=== PATIENT | male | born 1970 | race Caucasian/White ===

== ENCOUNTER 2019-07-30 20:10 | Inpatient (IN) | payer MEDICARE, MEDICAID, SELFPAY ==
[2019-07-30 20:22] VITALS: BP 138/79; PULSE 106; RESP 18; TEMP 36.9; O2SAT 98; BMI 33.5
--- NOTE | 2019-07-30 20:40 | PC.NURSE ---
Patient states he is wanting to hurt himself, patient states that if he walks out the door right now it is OVER. Patient states that while he is talking to the nurse he just wants to jump through the window . Patient seems agitated and restless in the ED.
[2019-07-30 20:50] LABS: Basophils # 0.1 10^3/uL (0.0-0.1); Basophils % 0.5 %; Eosinophils # 0.3 10^3/uL (0.0-0.8); Eosinophils % 2.1 %; Hematocrit 46.3 % (42.0-52.0); Hemoglobin 15.8 g/dL (11.7-16.6); Lymphocytes # 2.6 10^3/uL (0.8-4.8); Lymphocytes % 18.3 %; Mean Corpuscular HGB Conc 34.1 g/dL (30.0-36.0); Mean Corpuscular Hemoglobin 33.2 pg (28.0-34.0); Mean Corpuscular Volume 97.3 fL (80-94); Mean Platelet Volume 10.6 fL (7.4-10.4); Monocytes # 1.3 10^3/uL (0.2-0.9); Monocytes % 8.8 %; Neutrophils % 69.8 %; Nucleated Red Blood Cells % 0 %; Platelet Count 211 10^3/cmm (130-400); Red Blood Count 4.76 10^6/uL (4.1-5.3); White Blood Count 14.4 10^3/uL (4.0-10.0)
--- NOTE | 2019-07-30 20:56 | ED_ITS ---
HPI - Psych General: Chief Complaint: Psychiatric Symptoms Stated Complaint: SI Time Seen by Provider: 07/30/19 20:20 History of Present Illness: HPI Narrative: Patient is a 49-year-old male who presents today with suicidal ideation. He says that for the past 2 weeks he has been planning to hang himself. He also came in with a backpack with knives in it. He told security that he had this backpack and had left it outside. He says that people of told him in the past that he is just playing when he says he suicidal but he tells me quite emphatically that if he gets out of here he will fucking do it . He admits to alcohol use. He denies drug use. He denies thoughts of harming other people. complaint: suicidal ideation Onset (ago): week(s) (2) Duration: constant History of same: Yes Relieving factors: none Exacerbating factors: alcohol Context: recent alcohol abuse and not taking psychiatric medications Associated psychiatric symptoms: suicidal ideation If self harm: admits thoughts of self harm and has plan Details of plan: To hang himself Review of Systems General: Reports: ROS unobtainable due to mental status PFSH ED PFSH: Social History Smoking and tobacco status: current some day smoker Physical Exam Const: COMMON NORMALS: alert and well nourished HENMT: HEAD & SCALP: normal to inspection FACE & SINUS: normal facial exam Eye: GENERAL EYE: appearance normal, both eyes and all related structures Neck/C-Spine: COMMON NORMALS: supple, no meningeal signs and no JVD Chest: COMMONS NORMALS: normal inspection of the chest Resp: COMMON NORMALS: normal respiratory effort, No use of accessory muscles and clear to auscultation bilaterally AUSCULTATION: clear to auscultation bilaterally Cardio: COMMON NORMALS: no JVD, regular rate, regular rhythm and No murmurs present (Cardio) RATE: regular rate RHYTHM: regular rhythm GI: COMMON NORMALS: Normal to inspection, nondistended, normoactive bowel sounds present, Soft to palpation and non-tender INSPECTION: Yes normal to inspection AUSCULTATION: Yes normoactive bowel sounds PALPATION: Yes Soft to palpation Back/Pelvis: COMMON NORMALS: thoracic and lumbar spine normal to inspection Extremity: COMMON NORMALS: normal to inspection Neuro: COMMON NORMALS: moves all extremities, no focal motor deficits and no sensory deficits noted SENSORIUM/ORIENTATION: Yes alert MENINGEAL SIGNS: Yes no meningeal signs Psych: COMMON NORMALS: cooperative APPEARANCE: Yes disheveled ATTITUDE: Yes agitated ACTIVITY/MOTOR BEHAVIOR: Yes psychomotor agitation and Yes restless SPEECH: Yes excessive and Yes Pressured speech present MOOD & AFFECT: Yes irritable THOUGHT CONTENT: Yes Suicidality present Skin: COMMON NORMALS: no rashes or lesions noted and turgor normal GENERAL SKIN EXAM: no rashes or lesions noted and turgor normal MDM - Psych Lab Data: Labs: Lab Results 07/30/19 07/30/19 07/30/19 Range/Units 20:32 20:32 20:50 WBC 14.4 H (4.0-10.0) 10^3/ uL RBC 4.76 (4.1-5.3) 10^6/u L Hgb 15.8 (11.7-16.6) g/dL Hct 46.3 (42.0-52.0) % MCV 97.3 H (80-94) fL MCH 33.2 (28.0-34.0) pg MCHC 34.1 (30.0-36.0) g/dL RDW 13.0 (12.1-15.1) % Plt Count 211 (130-400) 10^3/c mm MPV 10.6 H (7.4-10.4) fL Neut % (Auto) 69.8 % Lymph % (Auto) 18.3 % [place] % (Auto) 8.8 % Eos % (Auto) 2.1 % Baso % (Auto) 0.5 % Neut # (Auto) 10.0 H (1.8-7.7) 10^3/u L Lymph # (Auto) 2.6 (0.8-4.8) 10^3/u L [place] # (Auto) 1.3 H (0.2-0.9) 10^3/u L Eos # (Auto) 0.3 (0.0-0.8) 10^3/u L Baso # (Auto) 0.1 (0.0-0.1) 10^3/u L Nucleated RBC % (a uto) 0 % Nucleated RBCs # 0.0 /100WBC Sodium 142 (136-145) mmol/L Potassium 4.0 (3.5-5.1) mmol/L Chloride 100 (98-107) mmol/L Carbon Dioxide 29 (22-29) mmol/L Anion Gap 17.0 (5-19) BUN 13 (6-20) mg/dL Creatinine 0.9 (0.7-1.2) mg/dL GFR Calculation 89.3 L (90-130) mL/min Glucose 102 (65-115) mg/dL Calculated Osmolal ity 290 (285-295) mOsm/k g Calcium 9.3 (8.5-10.5) mg/dL Total Bilirubin 1.0 (0.15-1.2) mg/dL AST 20 (0-40) U/L ALT 15 (0-41) U/L Alkaline Phosphata se 92 (40-130) IU/L Total Protein 7.2 (6.6-8.7) g/dL Albumin 4.9 (3.5-5.2) g/dL Globulin 2.3 (1.3-4.6) g/dL Salicylates < 0.3 L (3-10) mg/dL Urine Opiates Scre en Negative (Negative) ng/mL Acetaminophen < 5.0 L (10-30) ug/mL Ur Barbiturates Sc reen Negative (Negative) ng/mL Ur Phencyclidine S crn Negative (Negative) ng/mL Ur Amphetamines Sc reen Negative (Negative) ng/mL U Benzodiazepines Scrn Negative (Negative) ng/mL Urine Cocaine Scre en Negative (Negative) ng/mL U Marijuana (THC) Screen Negative (Negative) ng/mL Ethyl Alcohol < 10 (0-10) mg/dL Discharge Plan Discharge Prescriptions: No Action Unable to Assess RF: 0 Coding Level of Care Code ED Patient Registration Representative for Chg 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
[2019-07-30] MEDS: LORazepam 2 mg Tablet PO (21:09)
[2019-07-30 21:12] LABS: Alanine Aminotransferase 15 U/L (0-41); Albumin Level 4.9 g/dL (3.5-5.2); Alkaline Phosphatase 92 IU/L (40-130); Aspartate Amino Transferase 20 U/L (0-40); Blood Urea Nitrogen 13 mg/dL (6-20); Calcium 9.3 mg/dL (8.5-10.5); Carbon Dioxide 29 mmol/L (22-29); Chloride 100 mmol/L (98-107); Globulin 2.3 g/dL (1.3-4.6); Glomerular Filtration Rate 89.3 mL/min (90-130); Glucose 102 mg/dL (65-115); Osmolality Calculated 290 mOsm/kg (285-295); Sodium 142 mmol/L (136-145); Total Protein 7.2 g/dL (6.6-8.7)
[2019-07-30 21:15] VITALS: BP 124/82; PULSE 93; RESP 16; O2SAT 97
[2019-07-30 21:24] LABS: Acetaminophen < 5.0 ug/mL (10-30); Alcohol Level < 10 mg/dL (0-10); Salicylate < 0.3 mg/dL (3-10)
[2019-07-30 21:51] LABS: Amphetamines Screen Urine Negative (Negative); Barbiturates Screen Urine Negative (Negative); Benzodiazepines Screen Urine Negative (Negative); Cocaine Screen Urine Negative (Negative); Opiate Screen Urine Negative (Negative); PCP Screen Urine Negative (Negative); THC Screen Urine Negative (Negative)
[2019-07-30] MEDS: lidocaine 2% viscous 15 ML, aluminum-mag hydrox-simethicon 30 ML, sucralfate oral liq 1 GM PO (23:48)
[2019-07-30 23:53] VITALS: PULSE 85; RESP 16; O2SAT 96
[2019-07-31 00:06] VITALS: BP 112/67; PULSE 84; RESP 16; TEMP 36.5; O2SAT 97
[2019-07-31 00:31] VITALS: BP 107/72; PULSE 92; RESP 18; TEMP 36.7; O2SAT 99
[2019-07-31] MEDS: trazodone 50 mg Tablet PO (00:37)
[2019-07-31 06:00] VITALS: BP 110/55; PULSE 66; RESP 17; TEMP 36.6; O2SAT 96
--- NOTE | 2019-07-31 11:14 | P.HP_ITS ---
Providers/Chief Complaint Admitting Physician: Sam Bond MD Chief Complaint: SI HPI NPU History of Present Illness Emil Castro is a 49 year old male who presents today reporting that he is struggling but seemed open to be discharged tomorrow if the issue was pushed. We had a discussion about our last encounter which is included below. We discussed concerns about his authenticity and truthfulness and reporting. He continues to report that he had been in [place], had not been in the hospital since this previous encounter, had not been on his medication since the previous encounter, and he has not been using methamphetamine. We agreed that it is our desire to assist him in anything that would be called progress in his recovery. We set a goal for discharge on Friday allowing the treatment team to be fully assembled to assist in possible community resources. We discussed the risks be nefits and alternatives of restarting his medications at the previous dosing just prior to that last hospitalization, and he understood and agreed to proceed as is documented in this note. Psychiatric history: It is likely that between hospitalizations and rehab stays that Emil has at least 50-75 encounters and that might be low balling it. He has been on multiple medications but his adherence is highly questionable. Substance abuse history: He smokes cigarettes, drinks alcohol regularly and has smoked weed off and on. He has had significant difficulties with methamphetamine and at different times accordingly on a struggle with basically everything. He has had significant rehab stents sometimes going to rehabs to 3 times in a year. Currently his UDS was negative for all drugs of abuse. He denies any substantive changes in his psychosocial history with some elements of that reported below in the most recent evaluation. Per his last [facility] eval: History of Present Illness Date of Service: Feb 19, 2019 Reason for Consultation: Presentation to the emergency room after discharge seeking readmission Consulting Service and Doctor: Sam Bond M.D. Psychiatry. HPI: Emil presents to the emergency room requesting to be admitted to the hospital where he was just discharged. He has had 11 inpatient hospitalizations at [facility] this calendar year, 20+ emergency room visits at [facility] this calendar year, 6 inpatient rehabilitation treatments this calendar year, myriad of other hos pitalizations at other facilities, so she'll stays, and multiple investments in transportation to get him all over the state just this year alone. Many of his stays at these facilities are 1 right behind another. This behavior was seen by him in [facility] as well as here. Times where he is in the hospital for 7-10 days, followed by inpatient rehabilitation for 21-30 days followed by an emergency room visit a day or 2 later back to hospitalization. There is limited indication of any effectiveness of any of this treatment at this point. There've been a few episodes of psychosis secondary to the methamphetamine. But in general it simply him reporting that he is suicidal, that he is depressed and that he wants to stop using. He presents to the hospitalizations positive for methamphetamine generally has a few days of withdrawal, become more active and requesting to be sent to some facility and not be discharged prior to that point. We have discussed at length our belief that the only chance he has to make a change is to be in a long-term program or unfortunately be locked up by the police for an extended period of time to try to get him enough sobriety to maybe have a clear enough mind to make some changes. Unfortunately the diagnosis of malingering in conjunction with his antisocial personality disorder make for a tough combination and make evaluation difficult given that he is really says when he has come to understand we'll work to get him admitted. Allergies: Coded Allergies: AMOXICILLIN (Verified Allergy, Unknown, UNABLE TO BREATH AND THROAT SWELLS, 04/18/18) PENICILLINS (Verified Allergy, Unknown, 04/18/18) Home Meds: Home Medications: Active Seroquel Tab (Quetiapine Fumarate) 100 Mg Tablet 300 Mg PO BEDTIME 30 Days Seroquel Tab (Quetiapine Fumarate) 50 Mg Tablet 50 Mg PO BID 30 Days Prozac Cap (Fluoxetine HCl) 20 Mg Tablet 20 Mg PO DAILY 30 Days Past Medical History Other Family Medical History: Unchanged from the recent hospitalization. Other Past Social History: Unchanged from the recent hospitalization. Physical Exam Physical Exam: This is a obese white male with adequate rest, grooming and eye contact. No abnormal movements except for psychomotor retardation. Semicooperative with exam. In mild distress. Speech was decreased rate and volume with a little slurring of his voice. Mood described as depressed, affect lethargic. Thought process organized. Thought content: Patient endorsed suicidal ideation but denied homicidal ideation, there were no delusions reported are noted, he denied any auditory or visual hallucinations. Attention and concentration were intact and memory was unreliable but none were formally tested. He is alert and oriented ?3. Insight and judgment are impaired. Assessment/Problem List Assessment/Problem List Other Assessment/Problem List: Malingering, antisocial personality disorder methamphetamine use disorder severe, rule out methamphetamine-induced mood disorder, depressive disorder unspecified, insomnia Plan This is a 48-year-old white male well known to this automobile and property underwriter from hospitalization in [facility] as well as here at [facility] who presents as hours after he was discharged by this automobile and property underwriter from the neuropsych unit after being on a 96 hour hold. He is concluding this year having had double digit admissions, reportedly almost twice as many ER visits, at least 6 inpatient rehabs and multiple stays at other psychiatric facilities. He has significant addiction issues which has led to significant psychosocial dysfunction, homelessness, and episodes of mood dysregulation and psychosis. He presents as he has many times with clear desire to have somewhere to go when he has nowhere to go. 1. Emil is not without risk for poor outcomes given his high impulsivity with the antisocial personality disorder, high impulsivity with addiction and feeling like his options are running out. However he has no significant history of acts of furtherance with his suicidal thoughts. He has mostly had suicidal threats which have been answered by admissions. The outcome of our response as the treatment community is that he has been in institutional settings 4 more days than not this year. And even with that, we find ourselves with him presenting for his third attempt at hospitalization here in the last 2 weeks. Given his profile, he has some risk for lethality/self-harm but that same risk exists every time we discharge him throughout the year. As he and I discussed during this recent hospitalization, we're are at a point where it feels like we the system are a part of the problem. 2. The assessment is that he has malingering. He generally talks of big game from the standpoint of saying that he has plenty of places to go he's just depressed. But in conversations about his son's he reports he can go there but he never does. 3. At this point just in this calendar year we have spent four figures getting counseling locations only to have home not stay or return as soon as that treatment regimen is completed. 4. At this point we cannot admit him every time he presents saying he's thinking bad things or something like that. We must encourage him to utilize community resources like the ones we gave him but he did not call while he was admitted. His expectation on the unit is for everyone to work to find him a place to go but he is not participating in the work to find him a place to go. Then becomes time for discharge and he reports that he is not ready. He was even offered the opportunity to spin the morning calling some of the resources he was given and he refused and reported he would just go stay at a friend's house. 5. He was given the number to resources, the [facility], [place], some of the Spiritism resources in the community given his lack of insurance. It would be appropriate for him to continue to seek those out. 6. Staff/evaluated should be prepared for him to possibly be aggressive as he has become quite frustrated with him not being admitted because he said he was suicidal. 7. However the overall recommendation is for him to discharge not be readmitted to the NPU Medical Necessity Statement: Inpatient hospitalization is not medically necessary. In fact this point given the issue with malingering and him not making significant changes in his life, admitting him is becoming part of the problem and preventing him from having to face circumstances that he is creating with his choices. Meds NPU Home Medications Medication Instructions Recorded Confirmed Last Taken Type Unable to Assess 07/30/19 07/30/19 Unknown History Allergies Allergy/AdvReac Type Severity Reaction Status Date / Time Penicillins Allergy ALGY-Hives Verified 07/30/19 20:29 PFS NPU PFSH: Social History Smoking and tobacco status: current some day smoker Mental Status Exam MSE Comments: This is an overweight versus obese white male with adequate dress limited grooming and eye contact. With significant body odor. No abnormal movements except for psychomotor retardation. Mostly cooperative with exam in no acute distress. Speech was decreased rate and volume. Mood described as breast, affect congruent. Thought process organized. Thought content: Patient denied any suicidal or homicidal ideations at the moment. He does however report that he is very discouraged. There are no delusions reported or noted, he denied any auditory or visual hallucinations. Attention and concentration were intact and memory was unreliable but none were formally tested. He is alert and oriented x3. Insight and judgment are impaired. Vitals/I&O/Wt Last Vital Signs Temp 97.9 F 07/31/19 06:00 Pulse 66 05/23/20 06:00 Resp 17 07/31/19 06:00 BP 110/55 07/31/19 06:00 Pulse Ox 96 07/31/19 06:00 Weight last 48 hrs Weight 107.218 kg Weight 108.862 kg Data NPU : 07/30/19 20:32 07/30/19 20:32 A&P Assessment and plan (1) Depressed bipolar I disorder: Status: Acute (2) Antisocial personality disorder: Status: Acute (3) Malingering: Status: Acute Additional A&P Information This is a 49-year-old white male with a long history of mental health issues as well as addiction issues who presents with a negative UDS and endorsing suicidal thoughts, off of his medication open to restarting his medication. 1. Restart previous Seroquel and Prozac. 2. Continue to 15-minute checks for safety. 3. Encouraged individual, group and milieu therapy. 4. We will work with the treatment team to explore what resources exist for him for some sort of sober living environment at the highest level of care to which he is willing to commit. Involuntary Hold Information 96 Hour Hold: 96 Hour Involuntary Admission: No Attestations NPU Medical Necessity Statement*: Inpatient hospitalization is medically necessary and the clinically appropriate intervention at this time. He will be in the hospital for over 2 midnights. We will monitor medications and evaluate for changes. Likely length of stay 3 to 5 days. Coding Level of Care Code Acute Administration Internship for Wilder Long Diagnoses Depressed bipolar I disorder F31.9 Antisocial personality disorder F60.2 Malingering Z76.5
[2019-07-31 14:00] VITALS: BP 124/82; PULSE 79; TEMP 36.8
[2019-07-31] MEDS: quetiapine 25 mg Tablet 50 MG PO (17:39)
[2019-07-31 22:00] VITALS: BP 131/82; PULSE 94; RESP 17; TEMP 36.6; O2SAT 97
[2019-08-01 06:00] VITALS: BP 104/66; PULSE 75; RESP 17; TEMP 36.7; O2SAT 98
[2019-08-01] MEDS: fluoxetine 20 mg Capsule PO (08:48)
[2019-08-01] MEDS: quetiapine 25 mg Tablet 50 MG PO ×2 (08:48→17:28)
--- NOTE | 2019-08-01 11:50 | PM.NPN ---
Subjective NPU Subjective: Interval history: Emil presents today clearly crashing from probably a [place] He endorses that the resumption of the medication has been tolerated fine. He does report that he is sweating a lot but is not sure what to attribute that to. Otherwise, he reports a plan to work with the treatment team tomorrow to look at what possibilities exist and continue to be open to our plan for this to be very directed inpatient stay, restarting the medications with a likely plan for discharge on Friday. Mental Status Exam MSE Comments: This is an obese, white male, with adequate dress, grooming, and limited eye contact. No abnormal movements except for psychomotor retardation. Cooperative with exam in no acute distress. Speech was decreased rate and volume. Mood described as okay; affect irritable. Thought process, organized. Thought content: patient denied any suicidal or homicidal ideation, there were no delusions reported or noted, patient denied any auditory or visual hallucinations. Attention, concentration, and memory appeared intact but were not formally tested. Alert and oriented times three. Insight and judgment are limited. Vitals/I&O/Wt Last Vital Signs Temp 98.6 F 08/01/19 21:43 Pulse 75 08/01/19 21:43 Resp 12 08/01/19 21:43 BP 88/53 08/01/19 21:43 Pulse Ox 95 08/01/19 21:43 Weight last 48 hrs Weight 107.218 kg Data NPU : 07/30/19 20:32 07/30/19 20:32 A&P Additional A&P Information (1) Depressed bipolar I disorder: (2) Antisocial personality disorder: (3) Malingering: This is a 49-year-old white male with a long history of mental health issues as well as addiction issues who presents with a negative UDS and endorsing suicidal thoughts, off of his medication open to restarting his medication. 1. Continue current medication. 2. Continue to 15-minute checks for safety. 3. Encouraged individual, group and milieu therapy. 4. We will work with the treatment team to explore what resources exist for him for some sort of sober living environment at the highest level of care to which he is willing to commit. Involuntary Hold Information 96 Hour Hold: 96 Hour Involuntary Admission: No Attestations NPU Medical Necessity Statement*: Inpatient hospitalization is medically necessary and the clinically appropriate intervention at this time. He will be in the hospital for over 2 midnights. We will monitor medications and evaluate for changes. Likely length of stay 2-4 days. Coding Level of Care Code Acute Hydroelectric Powerplant Supervisor for Wilder Long
[2019-08-01 14:00] VITALS: BP 108/68; PULSE 80; RESP 17; TEMP 37.1; O2SAT 97
--- NOTE | 2019-08-01 15:09 | PC.RESP ---
Smoking Cessation information and a schedule of classes sent to patient.
[2019-08-01] MEDS: OLANZapine 5 mg ODT PO (17:28)
--- NOTE | 2019-08-01 17:28 | PC.NURSE ---
Addendum entered by Delaney Miranda LPN 08/01/19 18:41: MEDICATION EFFECTIVE. PATIENT LYING DOWN RESTING IN BED. Original Note: PRN ZYPREXA ZYDIS ZYPREXA ZYDIS 5MG PO PER PATIENT C/O AGITATION/ANXIETY. WILL CONTINUE TO MONITOR FOR MEDICATION EFFECTIVENESS.
[2019-08-01] MEDS: hyDROXYzine 25 mg Capsule 50 MG PO (21:24)
[2019-08-01] MEDS: trazodone 50 mg Tablet PO (21:25)
[2019-08-01 21:43] VITALS: BP 88/53; PULSE 75; RESP 12; TEMP 37; O2SAT 95
[2019-08-02 06:00] VITALS: BP 108/68; PULSE 66; RESP 16; TEMP 36.6; O2SAT 99
[2019-08-02] MEDS: quetiapine 25 mg Tablet 50 MG PO ×2 (09:51→17:02)
[2019-08-02] MEDS: fluoxetine 20 mg Capsule PO (09:51)
--- NOTE | 2019-08-02 11:57 | PM.NPN ---
Subjective NPU Subjective: Interval history: Emil presents today reporting that he is feeling better each day. He did have an opportunity to talk to the social work administrator and there are limited opportunities right now, but he feels optimistic that with his medication restarted, that he has a chance to do better. Previously he has been on Seroquel at night. We have not restarted that, especially given how hard he has been sleeping since he has been in here. He reports that the daytime Seroquel is helping with his anxiety and that he feels confident that if he is discharged on those medications, he can at least have a baseline to face the challenges that he has in his life. Mental Status Exam MSE Comments: This is an obese, white male, with adequate dress, grooming, and improved eye contact. No abnormal movements except for mild psychomotor retardation that is improving slightly. Cooperative with exam in no acute distress. Speech was decreased rate and volume but improving. Mood described as alright; affect less irritable. Thought process, organized. Thought content: patient denied any suicidal or homicidal ideation, there were no delusions reported or noted, patient denied any auditory or visual hallucinations. Attention, concentration, and memory appeared intact but were not formally tested. Alert and oriented times three. Insight and judgment are limited but improving. Vitals/I&O/Wt Last Vital Signs Temp 98.6 F 08/02/19 22:00 Pulse 75 08/02/19 22:00 Resp 17 08/02/19 22:00 BP 120/84 08/02/19 22:00 Pulse Ox 96 08/02/19 22:00 Weight last 48 hrs Weight 107.218 kg Data NPU : 07/30/19 20:32 07/30/19 20:32 A&P Additional A&P Information (1) Depressed bipolar I disorder: (2) Antisocial personality disorder: (3) Malingering: This is a 49-year-old white male with a long history of mental health issues as well as addiction issues who presents with a negative UDS and endorsing suicidal thoughts, off of his medication open to restarting his medication. 1. Continue current medication. 2. Continue to 15-minute checks for safety. 3. Encouraged individual, group and milieu therapy. 4. We will work with the treatment team to explore what resources exist for him for some sort of sober living environment at the highest level of care to which he is willing to commit. Involuntary Hold Information 96 Hour Hold: 96 Hour Involuntary Admission: No Attestations NPU Medical Necessity Statement*: Inpatient hospitalization is medically necessary and the clinically appropriate intervention at this time. We will monitor medications and evaluate for changes. Likely length of stay 1-3 days. Coding Level of Care Code Acute Auto Damage Trainee for Wilder Long
[2019-08-02 14:00] VITALS: BP 106/64; PULSE 85; RESP 18; TEMP 36.7; O2SAT 97
[2019-08-02] MEDS: nicotine 2 mg Gum BUCCAL (17:02)
[2019-08-02] MEDS: trazodone 50 mg Tablet PO (21:17)
[2019-08-02] MEDS: hyDROXYzine 25 mg Capsule 50 MG PO (21:17)
--- NOTE | 2019-08-02 21:18 | PC.NURSE ---
TRAZODONE & VISTARIL PT REQUESTING SLEEP AID AND ANXIETY MEDICATION. ADMINISTERED TRAZODONE 50 MG PO FOR SLEEP AND VISTARIL 50 MG PO FOR ANXIETY. WILL MONITOR FOR MEDICATION EFFECTIVENESS.
[2019-08-02 22:00] VITALS: BP 120/84; PULSE 75; RESP 17; TEMP 37; O2SAT 96
[2019-08-03 06:00] VITALS: BP 120/77; PULSE 70; RESP 16; TEMP 36.8; O2SAT 97
[2019-08-03] MEDS: quetiapine 25 mg Tablet 50 MG PO (09:20)
[2019-08-03] MEDS: fluoxetine 20 mg Capsule PO (09:20)
--- NOTE | 2019-08-03 09:34 | PC.SOCIAL ---
patient said that he is ready to go. Ride to be arranged. message sent to doctor letting him know patient is saying he is ready to go. ride will be arranged as soon as we know discharge orders are in. patient aware of this.
--- NOTE | 2019-08-03 14:05 | P.DS_ITS ---
Diagnoses at Discharge Discharge Diagnosis (1) Depressed bipolar I disorder: Status: Acute (2) Antisocial personality disorder: Status: Acute (3) Malingering: Status: Acute Reason for Visit Reason for Visit: Reason For Visit: SI Brief History: History of Present Illness Emil Castro is a 49 year old male who presents today reporting that he is struggling but seemed open to be discharged tomorrow if the issue was pushed. We had a discussion about our last encounter which is included below. We discussed concerns about his authenticity and truthfulness and reporting. He continues to report that he had been in [place], had not been in the hospital since this previous encounter, had not been on his medication since the previous encounter, and he has not been using methamphetamine. We agreed that it is our desire to assist him in anything that would be called progress in his recovery. We set a goal for discharge on Friday allowing the treatment team to be fully assembled to assist in possible community resources. We discussed the risks benefits and alternatives of restarting his medications at the previous dosing just prior to that last hospitalization, and he understood and agreed to proceed as is documented in this note. Psychiatric history: It is likely that between hospitalizations and rehab stays that Emil has at least 50-75 encounters and that might be low balling it. He has been on multiple medications but his adherence is highly questionable. Substance abuse history: He smokes cigarettes, drinks alcohol regularly and has smoked weed off and on. He has had significant difficulties with methamphetamine and at different times accordingly on a struggle with basically everything. He has had significant rehab stents sometimes going to rehabs to 3 times in a year. Currently his UDS was negative for all drugs of abuse. He denies any substantive changes in his psychosocial history with some elements of that reported below in the most recent evaluation. Per his last [facility] [place]: History of Present Illness Date of Service: Feb 19, 2019 Reason for Consultation: Presentation to the emergency room after discharge seeking readmission Consulting Service and Doctor: Sam Bond M.D. Psychiatry. HPI: Emil presents to the emergency room requesting to be admitted to the hospital where he was just discharged. He has had 11 inpatient hospitalizations at [facility] this calendar year, 20+ emergency room visits at [facility] this calendar year, 6 inpatient rehabilitation treatments this calendar year, myriad of other hospitalizations at other facilities, so she'll stays, and multiple investments in transportation to get him all over the state just this year alone. Many of his stays at these facilities are 1 right behind another. This behavior was seen by him in [facility] as well as here. Times where he is in the hospital for 7-10 days, followed by inpatient rehabilitation for 21-30 days followed by an emergency room visit a day or 2 later back to hospitalization. There is limited indication of any effectiveness of any of this treatment at this point. There've been a few episodes of psychosis secondary to the methamphetamine. But in general it simply him reporting that he is suicidal, that he is depressed and that he wants to stop using. He presents to the hospitalizations positive for methamphetamine generally has a few days of withdrawal, become more active and requesting to be sent to some facility and not be discharged prior to that point. We have discussed at length our belief that the only chance he has to make a change is to be in a long-term program or unfortunately be locked up by the police for an extended period of time to try to get him enough sobriety to maybe have a clear enough mind to make some changes. Unfortunately the diagnosis of malingering in conjunction with his antisocial personality disorder make for a tough combination and make evaluation difficult given that he is really says when he has come to understand we'll work to get him admitted. Allergies: Coded Allergies: AMOXICILLIN (Verified Allergy, Unknown, UNABLE TO BREATH AND THROAT SWELLS, 04/18/18) PENICILLINS (Verified Allergy, Unknown, 04/18/18) Home Meds: Home Medications: Active Seroquel Tab (Quetiapine Fumarate) 100 Mg Tablet 300 Mg PO BEDTIME 30 Days Seroquel Tab (Quetiapine Fumarate) 50 Mg Tablet 50 Mg PO BID 30 Days Prozac Cap (Fluoxetine HCl) 20 Mg Tablet 20 Mg PO DAILY 30 Days Past Medical History Other Family Medical History: Unchanged from the recent hospitalization. Other Past Social History: Unchanged from the recent hospitalization. Physical Exam Physical Exam: This is a obese white male with adequate rest, grooming and eye contact. No abnormal movements except for psychomotor retardation. Semicooperative with exam. In mild distress. Speech was decreased rate and volume with a little slurring of his voice. Mood described as depressed, affect lethargic. Thought process organized. Thought content: Patient endorsed suicidal ideation but denied homicidal ideation, there were no delusions reported are noted, he denied any auditory or visual hallucinations. Attention and concentration were intact and memory was unreliable but none were formally tested. He is alert and oriented ?3. Insight and judgment are impaired. Assessment/Problem List Assessment/Problem List Other Assessment/Problem List: Malingering, antisocial personality disorder methamphetamine use disorder severe, rule out methamphetamine-induced mood disorder, depressive disorder unspecified, insomnia Plan This is a 48-year-old white male well known to this food writer from hospitalization in [facility] as well as here at [facility] who presents as hours after he was discharged by this food writer from the neuropsych unit after being on a 96 hour hold. He is concluding this year having had double digit admissions, reportedly almost twice as many ER visits, at least 6 inpatient rehabs and multiple stays at other psychiatric facilities. He has significant addiction issues which has led to significant psychosocial dysfunction, homelessness, and episodes of mood dysregulation and psychosis. He presents as he has many times with clear desire to have somewhere to go when he has nowhere to go. 1. Emil is not without risk for poor outcomes given his high impulsivity with the antisocial personality disorder, high impulsivity with addiction and feeling like his options are running out. However he has no significant history of acts of furtherance with his suicidal thoughts. He has mostly had suicidal threats which have been answered by admissions. The outcome of our response as the treatment community is that he has been in institutional settings 4 more days than not this year. And even with that, we find ourselves with him presenting for his third attempt at hospitalization here in the last 2 weeks. Given his profile, he has some risk for lethality/self-harm but that same risk exists every time we discharge him throughout the year. As he and I discussed during this recent hospitalization, we're are at a point where it feels like we the system are a part of the problem. 2. The assessment is that he has malingering. He generally talks of big game from the standpoint of saying that he has plenty of places to go he's just depressed. But in conversations about his son's he reports he can go there but he never does. 3. At this point just in this calendar year we have spent four figures getting counseling locations only to have home not stay or return as soon as that treatment regimen is completed. 4. At this point we cannot admit him every time he presents saying he's thinkin g bad things or something like that. We must encourage him to utilize community resources like the ones we gave him but he did not call while he was admitted. His expectation on the unit is for everyone to work to find him a place to go but he is not participating in the work to find him a place to go. Then becomes time for discharge and he reports that he is not ready. He was even offered the opportunity to spin the morning calling some of the resources he was given and he refused and reported he would just go stay at a friend's house. 5. He was given the number to resources, the [facility], [place], some of the [employer] resources in the community given his lack of insurance. It would be appropriate for him to continue to seek those out. 6. Staff/evaluated should be prepared for him to possibly be aggressive as he has become quite frustrated with him not being admitted because he said he was suicidal. 7. However the overall recommendation is for him to discharge not be readmitted to the [facility] Medical Necessity Statement: Inpatient hospitalization is not medically necessary. In fact this point given the issue with malingering and him not making significant changes in his life, admitting him is becoming part of the problem and preventing him from having to face circumstances that he is creating with his choices. Hospital Course Hospital Course Emil presented to the emergency room endorsing that he was going to kill himself, that he was depressed, and that he had not been on his medication. He was admitted to the neuropsychiatric unit for definitive treatment of these issues. He slowly acclimated to the individual, group, and milieu therapies provided. This was the first hospitalization for him since February of 2019, when his malingering and repeated visits without any clear follow up were challenged, and he was not admitted and had not been back. We discussed very specific goals and a very concise hospitalization. He was restarted on his medications, which had a very positive effect. During the hospitalization, the patient had routine laboratory studies which were within normal limits, except for a few outliers. Additionally, he had a general medical evaluation which was within normal limits and revealed no new acute processes. Discharge Summary At the time of discharge the patient denied all lethality, was absent psychosis, and mood and anxiety were well managed. The patient endorsed a plan to avoid all drugs of abuse and to follow-up with outpatient services, as recommended. He was evaluated and deemed to be absent credible lethality, and had achieved the maximum benefit from an inpatient hospitalization, and so he was discharged. Involuntary Hold Information 96 Hour Hold: 96 Hour Involuntary Admission: No Mental Status Exam MSE Comments: This is an overweight versus obese, white male, with adequate dress, grooming, and eye contact. No abnormal movements. Cooperative with exam in no acute distress. Speech was slightly decreased rate and volume. Mood described as much better; affect congruent. Thought process, organized. Thought content: patient denied any suicidal or homicidal ideation, there were no delusions reported or noted, patient denied any auditory or visual hallucinations. Attention, concentration, and memory appeared intact but none were formally tested. He is alert and oriented times three. Insight and judgment are limited. Impulse control is impaired. Prognosis is guarded given that he just does not follow up with after care or medications, and he continues to actively use. Discharge Data Vitals: Last Vital Signs Temp 98.3 F 08/03/19 06:00 Pulse 70 08/03/19 06:00 Resp 16 08/03/19 06:00 BP 120/77 08/03/19 06:00 Pulse Ox 97 08/03/19 06:00 Discharge Plan Discharge Patient Disposition: Home, Self-Care Condition: Stable Prescriptions: New quetiapine 50 mg tablet 50 mg PO BID 30 Days Qty: 60 RF: 1 trazodone 50 mg Tablet 50 mg PO BEDTIME PRN (Reason: Sleep) 30 Days Qty: 30 RF: 1 fluoxetine 20 mg Capsule 20 mg PO DAILY 30 Days Qty: 30 RF: 1 Discharge Orders: Discharge Order (Routine); Ordered 08/03/19 Ordered By: Sam Bond Referrals: [facility] [Other] (Please follow up for your walk in assessment within 3-5 days of discharge. No call-ahead is necessary, just walk in and be seen. Bring your I.D., social security card or number, and insurance information We accept Medicare, Medicaid, numerous private insurance providers and accept self-pay on a sliding scale for those who qualify. 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
--- NOTE | 2019-08-03 14:26 | PC.SOCIAL ---
Dolly hooks called because patient has no other means. he has an address in [facility]
[2019-08-03 14:27] VITALS: BP 120/77; PULSE 70; RESP 16; TEMP 36.8; O2SAT 97
== END 2019-08-03 15:45 | disposition home or self-care (01) | DRG 885 ==
LOC: ER 20:28 → NP 23:59
PROVIDERS: Emergency Medicine; Admitting Provider Psychiatry & Neurology Psychiatry; Visit Provider Psychiatry & Neurology Psychiatry
DX: F31.9 Bipolar disorder, unspecified (principal); F17.210 Nicotine dependence, cigarettes, uncomplicated; F10.20 Alcohol dependence, uncomplicated; F15.11 Other stimulant abuse, in remission; E66.9 Obesity, unspecified; Z68.33 Body mass index [BMI] 33.0-33.9, adult; F60.2 Antisocial personality disorder; Z76.5 Malingerer [conscious simulation]
CPT/HCPCS: 12345; 36415; 80053; 80306; 80307; 85025; 99284

== ENCOUNTER 2019-08-21 14:47 | Inpatient (IN) | payer MEDICARE, MEDICAID, SELFPAY ==
[2019-08-21 14:55] VITALS: BP 119/83; PULSE 87; RESP 18; TEMP 36.5; O2SAT 97; BMI 34.8
--- NOTE | 2019-08-21 15:02 | PC.NURSE ---
Otto funes notified of the suicidal patient in the ER and working on obtaining a sitter for the patient. At this time DIEUDONNE Rondon sitting with patient.
--- NOTE | 2019-08-21 15:03 | ED_ITS ---
HPI - Psych General: Chief Complaint: Psychiatric Symptoms Stated Complaint: mhe Time Seen by Provider: 08/21/19 14:59 History of Present Illness: HPI Narrative: Patient states he just done and then went live anymore he was found in a ditch by some gentleman brought him in here and he said he did not know how he ended up in the ditch had drink couple shots of vodka maybe smoke some weed denies any other problem says he has nothing to live for MD complaint: suicidal ideation Onset (ago): year(s) Duration: intermittent History of same: Yes Relieving factors: none Context: recent alcohol abuse and recent drug abuse Associated psychiatric symptoms: depression and suicidal ideation Associated symptoms: Reports depression Treatments prior to arrival: none If self harm: admits thoughts of self harm and has plan Review of Systems Const: Denies: fever(s), chills or body aches Eyes: Denies: change in vision or blurry vision ENMT: Denies: throat pain or nasal congestion Card: Denies: chest pain or dyspnea on exertion Resp: Denies: dyspnea, productive cough or non-productive cough GI: Denies: abdominal pain, nausea or vomiting : Denies: difficulty urinating Musc: Denies: extremity pain Skin/Breast: Denies: rash Neuro: Denies: headache(s) Psych: Reports: depression; Denies: anxiety Ish/Lymph: Denies: easy bruising PFSH ED PFSH: Social History Smoking and tobacco status: current every day smoker Physical Exam Const: COMMON NORMALS: no acute distress, average body habitus and patient oriented x3 HENMT: COMMON NORMALS: normocephalic HEAD & SCALP: normal to inspection and normocephalic FACE & SINUS: normal facial exam Eye: COMMON NORMALS: conjunctivae normal GENERAL EYE: appearance normal, both eyes and all related structures CONJUNCTIVA: Yes conjunctivae normal Neck/C-Spine: COMMON NORMALS: no JVD Chest: COMMONS NORMALS: normal inspection of the chest Resp: COMMON NORMALS: normal respiratory effort and clear to auscultation bilaterally AUSCULTATION: clear to auscultation bilaterally Cardio: COMMON NORMALS: no JVD, regular rate and regular rhythm RATE: regular rate RHYTHM: regular rhythm GI: COMMON NORMALS: Normal to inspection, nondistended, normoactive bowel sounds present Extremity: COMMON NORMALS: normal to inspection and full ROM Neuro: COMMON NORMALS: patient oriented x3 Psych: COMMON NORMALS: Normal thought process present and speech normal APPEARANCE: Yes grossly normal ATTITUDE: Yes calm ACTIVITY/MOTOR BEHAVIOR: Yes appropriate eye contact SPEECH: Yes normal speech MOOD & AFFECT: Yes depressed mood THOUGHT PROCESS: Normal thought process present OTHER: Patient states he has plan to take pills drink alcohol to kill himself says he has no reason to live says he cannot explain why he is in a ditch today MDM - Psych MDM Narrative: Medical decision making narrative: Spoke with Dr. Cuevas patient to be admitted to [facility] neuropsych Lab Data: Labs: Lab Results 08/21/19 08/21/19 08/21/19 Range/Units 15:16 15:18 15:18 WBC 13.9 H (4.0-10.0) 10^3/ uL RBC 4.64 (4.1-5.3) 10^6/u L Hgb 15.2 (11.7-16.6) g/dL Hct 44.4 (42.0-52.0) % MCV 95.7 H (80-94) fL MCH 32.8 (28.0-34.0) pg MCHC 34.2 (30.0-36.0) g/dL RDW 13.2 (12.1-15.1) % Plt Count 206 (130-400) 10^3/c mm MPV 10.3 (7.4-10.4) fL Neut % (Auto) 73.6 % Lymph % (Auto) 14.4 % [place] % (Auto) 9.0 % Eos % (Auto) 2.1 % Baso % (Auto) 0.5 % Neut # (Auto) 10.2 H (1.8-7.7) 10^3/u L Lymph # (Auto) 2.0 (0.8-4.8) 10^3/u L [place] # (Auto) 1.2 H (0.2-0.9) 10^3/u L Eos # (Auto) 0.3 (0.0-0.8) 10^3/u L Baso # (Auto) 0.1 (0.0-0.1) 10^3/u L Nucleated RBC % (a uto) 0 % Nucleated RBCs # 0.0 /100WBC Sodium 142 (136-145) mmol/L Potassium 3.5 (3.5-5.1) mmol/L Chloride 100 (98-107) mmol/L Carbon Dioxide 29 (22-29) mmol/L Anion Gap 16.5 (5-19) BUN 10 (6-20) mg/dL Creatinine 0.9 (0.7-1.2) mg/dL GFR Calculation 89.3 L (90-130) mL/min Glucose 127 H (65-115) mg/dL Calculated Osmolal ity 292 (285-295) mOsm/k g Calcium 9.4 (8.5-10.5) mg/dL Urine Opiates Scre en Negative (Negative) ng/mL Ur Barbiturates Sc reen Negative (Negative) ng/mL Ur Phencyclidine S crn Negative (Negative) ng/mL Ur Amphetamines Sc reen Positive H (Negative) ng/mL U Benzodiazepines Scrn Positive H (Negative) ng/mL Urine Cocaine Scre en Negative (Negative) ng/mL U Marijuana (THC) Screen Negative (Negative) ng/mL Discharge Plan Discharge Prescriptions: No Action quetiapine 50 mg tablet 50 mg PO BID 30 Days Qty: 60 RF: 1 trazodone 50 mg Tablet 50 mg PO BEDTIME PRN (Reason: Sleep) 30 Days Qty: 30 RF: 1 fluoxetine 20 mg Capsule 20 mg PO DAILY 30 Days Qty: 30 RF: 1 Coding Level of Care Code 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
[2019-08-21 15:18] VITALS: RESP 18
[2019-08-21 15:23] LABS: Basophils # 0.1 10^3/uL (0.0-0.1); Basophils % 0.5 %; Eosinophils # 0.3 10^3/uL (0.0-0.8); Eosinophils % 2.1 %; Hematocrit 44.4 % (42.0-52.0); Hemoglobin 15.2 g/dL (11.7-16.6); Lymphocytes % 14.4 %; Mean Corpuscular HGB Conc 34.2 g/dL (30.0-36.0); Mean Corpuscular Hemoglobin 32.8 pg (28.0-34.0); Mean Corpuscular Volume 95.7 fL (80-94); Mean Platelet Volume 10.3 fL (7.4-10.4); Monocytes # 1.2 10^3/uL (0.2-0.9); Neutrophils # 10.2 10^3/uL (1.8-7.7); Neutrophils % 73.6 %; Nucleated Red Blood Cells % 0 %; Platelet Count 206 10^3/cmm (130-400); Red Blood Count 4.64 10^6/uL (4.1-5.3); Red Cell Distribution Width 13.2 % (12.1-15.1); White Blood Count 13.9 10^3/uL (4.0-10.0)
[2019-08-21 15:42] LABS: Amphetamines Screen Urine Positive (Negative); Barbiturates Screen Urine Negative (Negative); Benzodiazepines Screen Urine Positive (Negative); Cocaine Screen Urine Negative (Negative); Opiate Screen Urine Negative (Negative); PCP Screen Urine Negative (Negative); THC Screen Urine Negative (Negative)
[2019-08-21 15:42] LABS: Anion Gap 16.5 (5-19); Blood Urea Nitrogen 10 mg/dL (6-20); Calcium 9.4 mg/dL (8.5-10.5); Carbon Dioxide 29 mmol/L (22-29); Chloride 100 mmol/L (98-107); Glomerular Filtration Rate 89.3 mL/min (90-130); Glucose 127 mg/dL (65-115); Osmolality Calculated 292 mOsm/kg (285-295); Potassium 3.5 mmol/L (3.5-5.1); Sodium 142 mmol/L (136-145)
[2019-08-21 16:03] LABS: Add Urine Culture? No; Add Urine Microscopic? YES; Bacteria Urine TRACE; Bilirubin Urine 1+ (NEGATIVE); Blood Urine Neg (Negative); Glucose Urine UA Norm (Normal); Ketones Urine 1+ (Negative); Leukocyte Esterase Urine Negative (Negative); Mucus Urine 3+; Nitrate Urine Negative (Negative); Protein Urine Trace (Negative); Urine Appearance Clear (CLEAR); Urine Color Amber (Yellow); Urobilinogen Urine 4 mg/dL (Negative); WBC Urine 0-4 /hpf (0-5); pH Urine 5 (5-7)
[2019-08-21 16:20] LABS: Acetaminophen < 5.0 ug/mL (10-30); Alcohol Level < 10 mg/dL (0-10); Salicylate < 0.3 mg/dL (3-10)
[2019-08-21 17:16] VITALS: RESP 18
[2019-08-21] MEDS: acetaminophen 500 mg Tablet 1000 MG PO (17:26)
[2019-08-21] MEDS: LORazepam 1 mg Tablet PO (17:30)
[2019-08-21 17:38] VITALS: BP 137/90; PULSE 89; RESP 18; O2SAT 97
[2019-08-21] MEDS: OLANZapine 5 mg ODT PO (18:04)
--- NOTE | 2019-08-21 18:04 | PC.NURSE ---
PRN MEDICATION Patient states he is agitated, wanting to hurt someone, mad and cursing. Given Zyprexa Zydis 5 mg PO,
[2019-08-21 22:00] VITALS: BP 129/68; PULSE 80; RESP 18; TEMP 37.1; O2SAT 94
[2019-08-21] MEDS: hyDROXYzine 25 mg Capsule 50 MG PO (22:03)
[2019-08-21] MEDS: trazodone 50 mg Tablet PO (22:03)
--- NOTE | 2019-08-22 00:08 | PC.NURSE ---
patient requested medication for anxiety and sleep. Visteril 50mg given for anxiety. Trazodone 50mg given for sleep.d
[2019-08-22 06:00] VITALS: BP 117/79; PULSE 70; RESP 18; TEMP 36.6; O2SAT 99
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
[2019-08-22 14:00] VITALS: BP 109/76; PULSE 102; RESP 20; TEMP 37; O2SAT 96
[2019-08-22] MEDS: quetiapine 25 mg Tablet 50 MG PO (16:41)
[2019-08-22] MEDS: lithium carbonate 300 mg Capsule PO (16:41)
[2019-08-22] MEDS: hyDROXYzine 25 mg Capsule 50 MG PO (20:59)
[2019-08-22] MEDS: trazodone 50 mg Tablet PO (20:59)
[2019-08-22 22:00] VITALS: BP 115/72; PULSE 82; RESP 17; TEMP 37.1; O2SAT 95
[2019-08-23 06:00] VITALS: BP 125/67; PULSE 70; RESP 18; TEMP 36.9; O2SAT 95
[2019-08-23] MEDS: lithium carbonate 300 mg Capsule PO ×2 (08:06→16:32)
[2019-08-23] MEDS: fluoxetine 20 mg Capsule PO (08:06)
--- NOTE | 2019-08-23 09:15 | PC.RESP ---
Smoking Cessation packet and schedule of classes sent to patient.
[2019-08-23 14:00] VITALS: BP 121/77; PULSE 106; RESP 15; TEMP 36.9; O2SAT 99
--- NOTE | 2019-08-23 18:49 | ECG_ITS ---
[facility] Test Date: 2019-08-23 Pat Name: Emil Castro Department: Room: 155 Gender: 0 Secondary Teacher: Mathew REYNOSO: 1970 Requested By: Edy Gomez Order Number: [id number] Olivares MD: Gina Sunshine M.D. Measurements Intervals [place] Rate: 72 P: 49 ND: 196 QRS: -22 QRSD: 113 T: 59 QT: 392 QTc: 432 Interpretive Statements SINUS RHYTHM BORDERLINE LEFT AXIS DEVIATION [QRS AXIS < -20] MODERATE INTRAVENTRICULAR CONDUCTION DELAY [110+ ms QRS DURATION] Compared to ECG 01/14/2019 15:30:45 Intraventricular conduction delay now present Sinus tachycardia no longer present Ventricular premature complex(es) no longer present Myocardial infarct finding no longer present Electronically Signed On 08-25-2019 14:17:56 CDT by Gina Sunshine M.D. [id number]
--- NOTE | 2019-08-23 18:53 | P.PN_ITS ---
Subjective NPU Subjective: Interval history: The patient says, I feel a lot better than I did yesterday. You look a lot better than you did yesterday, I affirm. He does suggest that he might be ready to go tomorrow. We shall see. He does complain of some left-sided chest pain his heart rate is rhythm is normal at the moment. I am ordering troponins and twelve-lead EKG which will hopefully clarify his cardiac status. Mental Status Exam MSE Comments: This is a 14-year-old male who presents at his stated age. He is far less disheveled and much clearer minded than yesterday. Mood is brighter and affect is certainly appropriate and upbeat. Thought processes are integrated and free of any racing, blocking looseness of association. Speech is of normal rate and volume, without dysarthria, aprosody or pressure. Cognitive function are adequate for safety. Nonetheless, when it comes to alcohol, he is utterly clueless, immersed in denial. Fortunately there is not the slightest hint of suicidal or homicidal ideation, plan or intent. Vitals/I&O/Wt Last Vital Signs Temp 98.4 F 08/23/19 14:00 Pulse 106 H 08/23/19 14:00 Resp 15 08/23/19 14:00 BP 121/77 08/23/19 14:00 Pulse Ox 99 08/23/19 14:00 Weight last 48 hrs Weight 236 lb 6.4 oz Data NPU : 08/21/19 15:18 08/21/19 15:18 A&P Assessment and plan (1) Antisocial personality disorder: Status: Acute (2) Depressed bipolar I disorder: Sobering up has done miracles for him Status: Acute Involuntary Hold Information 96 Hour Hold: 96 Hour Involuntary Admission: No Attestations NPU Medical Necessity Statement*: If all goes well with cardiac assessment will be able to discharge him tomorrow. Per his request. Time Spent in Patient Care: Greater than 35 minutes (>than 50% of time spent in counselling and/or direct pt care on unit) . 50 minutes Coding Level of Care Code Acute Sound Editor for [facility] Fwd Diagnoses Antisocial personality disorder F60.2 Depressed bipolar I disorder F31.9
[2019-08-23 19:50] LABS: Troponin T (5th) Once 6 ng/L (0-15)
[2019-08-23] MEDS: hyDROXYzine 25 mg Capsule 50 MG PO (20:34)
[2019-08-23] MEDS: trazodone 50 mg Tablet PO (20:34)
[2019-08-23 22:00] VITALS: BP 139/91; PULSE 89; RESP 18; TEMP 36.8; O2SAT 96
[2019-08-24 06:00] VITALS: BP 158/83; PULSE 78; RESP 17; TEMP 37; O2SAT 97
[2019-08-24] MEDS: lithium carbonate 300 mg Capsule PO (07:38)
[2019-08-24] MEDS: fluoxetine 20 mg Capsule PO (07:39)
[2019-08-24 07:51] VITALS: BP 158/83; PULSE 78; RESP 17; TEMP 37; O2SAT 97
--- NOTE | 2019-08-24 08:06 | P.DS_ITS ---
Diagnoses at Discharge Discharge Diagnosis (1) Antisocial personality disorder: Status: Chronic (2) Depressed bipolar I disorder: Status: Resolved Problem details: Patient does not name and get his prescriptions filled when discharged. I am discontinuing all his meds and referring him to outpatient follow-up. Reason for Visit Reason for Visit: [facility] Hospital Course Hospital Course Patient was pretty sick with alcohol when he came in. He cleared up quickly and is now looking forward to discharge. The patient was complaining of some left- sided chest pain his EKG showed marginal abnormalities and the electronic summary was borderline . Troponins, however, were mid-range, suggesting that there has been no myocardial damage. At the present time I see no contraindication to discharging him. I encouraged him to report to the emergency room if his chest Pain becomes more pronounced. I extensively educated him as to the risk of chronic alcohol consumption, including cardiomyopathy, the emergence of which may be reflected by his marginal EKG, and potentially fatal arrhythmia. Involuntary Hold Information 96 Hour Hold: 96 Hour Involuntary Admission: No Mental Status Exam MSE Comments: This is a 49-year-old male who presents at his stated age. He is better organized and less disheveled. As for his mood, he is the very picture of insouciance. He is sobered up but he really does not present any depressive symptoms and his mood is calm. Thought processes are integrated and free of any racing, blocking or looseness of association. Speech is of normal rate and volume, without dysarthria, aprosody or pressure. Cognitive functions are adequate for safety. There is no evidence of psychosis, such as but not limited to hallucinations, delusions, ideas of reference, etc. the patient denies suicidal or homicidal ideation, plan or intent. Insight and judgment are adequate for safety but not for sobriety. He has multiple times refused or failed to profit from rehab programs. He is a voluntary patient and is competent to act on ill-conceived decisions. Discharge Data Data Completed and Pending: Pending at discharge Category Date Time Status [place] Routine Lab 08/26/19 10:00 Ordered Labs from last 24 hours 08/23/19 19:00 Troponin T Gen 5 n g/L 6 Vitals: Last Vital Signs Temp 98.6 F 08/24/19 07:51 Pulse 78 08/24/19 07:51 Resp 17 08/24/19 07:51 BP 158/83 08/24/19 07:51 Pulse Ox 97 08/24/19 07:51 Discharge Plan Discharge Patient Disposition: Home, Self-Care Condition: Stable Prescriptions: Discontinued quetiapine 50 mg tablet 50 mg PO BID 30 Days Qty: 60 RF: 1 trazodone 50 mg Tablet 50 mg PO BEDTIME PRN (Reason: Sleep) 30 Days Qty: 30 RF: 1 fluoxetine 20 mg Capsule 20 mg PO DAILY 30 Days Qty: 30 RF: 1 Discharge Orders: Discharge Order (Routine); Ordered 08/24/19 Ordered By: Edy Snow Referrals: [facility] [Outside] - 4-7 days (if you stay in this area... walk-in hours 7:30 a.m.-2:30 p.m. Friday through Friday go during the walk-in hours and request an initial assessment ) Discharge Diet: Usual diet Discharge Activity: Resume usual activity Discharge Attestations NPU Time Spent in Discharge Care*: critical care time (min): 50 Specific Discharge Activities: Specific discharge activities: educating patient, discussing with pcp/other providers, discussing with behavioral health case manager/social workers/dc planners and documenting/other paperwork Status at Discharge: Cognitive status at discharge: cognitively intact , Behavioral status at discharge: cooperative , Functional status at discharge: independent ambulation Overall status at discharge: patient is back to baseline Coding Level of Care Code Acute Propeller Engineer for [facility]jul[facility] Diagnoses Antisocial personality disorder F60.2 Depressed bipolar I disorder F31.9
[2019-08-24 10:06] VITALS: BP 158/83; PULSE 78; RESP 17; TEMP 37; O2SAT 97
== END 2019-08-24 10:13 | disposition home or self-care (01) | DRG 885 ==
LOC: ER 15:19 → NP 17:25
PROVIDERS: Nurse Practitioner Family; Admitting Provider Psychiatry & Neurology Psychiatry; Visit Provider Psychiatry & Neurology Psychiatry
DX: F31.9 Bipolar disorder, unspecified (principal); F60.2 Antisocial personality disorder; F17.210 Nicotine dependence, cigarettes, uncomplicated
CPT/HCPCS: 12345; 36415; 80048; 80306; 80307; 81001; 84484; 85025; 93005; 99284

== ENCOUNTER 2019-11-30 21:35 | Emergency (ER) | payer MEDICARE, MEDICAID, SELFPAY ==
[2019-11-30 21:37] VITALS: BP 136/88; PULSE 90; RESP 22; TEMP 36.6; O2SAT 94; BMI 30.5
--- NOTE | 2019-11-30 21:38 | ECG_ITS ---
[facility] Test Date: 2019-11-30 Pat Name: Emil Castro Department: Room: Gender: Male Chief Airport Guide: : 1970 Requested By: Johnathan Sharma Order Number: [id number] Olivares MD: Gina Sunshine M.D. Measurements Intervals [place] Rate: 77 P: 126 [place]: 206 QRS: 218 QRSD: 109 T: 123 QT: 371 QTc: 421 Interpretive Statements SINUS RHYTHM ARM LEADS REVERSED [INVERTED P AND QRS IN I] Compared to ECG 08/23/2019 22:17:40 Intraventricular conduction delay no longer present Electronically Signed On 12-01-2019 13:55:51 CDT by Gina Sunshine M.D. [id number]
--- NOTE | 2019-11-30 21:52 | ED_ITS ---
HPI - Psych General: Chief Complaint: Psychiatric Symptoms Stated Complaint: PSYCH Time Seen by Provider: 11/30/19 21:38 History of Present Illness: HPI Narrative: Patient is a 49-year-old male comes to the ED via EMS for psych evaluation. Patient has a past medical history of malingering, antisocial personality disorder and depressed bipolar type I disorder. Patient was released from [facility] psych unit today. Patient says he feels very suicidal currently is been thinking a lot about shooting himself in the head with a gun. He also endorses having some other thoughts of self-harm such as grabbing scissors and stabbing himself. He is also endorses homicidal ideation as well. He says he is currently been depressed, stressed and anxious. Denies any problems sleeping. He does have decreased motivation throughout the day and says he does not want to be around anybody. He endorses hearing voices telling him that he is an 87 and other negative comments about himself. Endorses visual hallucinations such as seeing multiple lights. Patient says he knows he needs help and would like to be admitted to the psych unit. Associated symptoms: Reports auditory hallucinations, visual hallucinations, depression, homicidal ideation and suicidal ideation Review of Systems Const: Denies: fever(s), chills or fatigue Eyes: Denies: change in vision or eye discomfort ENMT: Denies: throat pain, odynophagia, nasal discharge or nasal congestion Card: Denies: chest pain, palpitations, edema, swelling of feet/ankles, dyspnea on exertion or orthopnea Resp: Denies: dyspnea, productive cough or non-productive cough GI: Denies: abdominal pain, nausea, vomiting, diarrhea, constipation or hematochezia : Denies: flank pain, difficulty urinating, dysuria or hematuria Musc: Denies: neck pain, back pain or extremity swelling Skin/Breast: Denies: rash or new lesions Neuro: Denies: headache(s), numbness in extremities or weakness in extremities Psych: Reports: anxiety, depression, irritability, visual hallucinations, auditory hallucinations, suicidal ideation and homicidal ideation [facility] ED PFSH: Social History Smoking and tobacco status: current every day smoker Physical Exam Const: COMMON NORMALS: no acute distress, patient oriented x3, healthy appearing and alert GENERAL APPEARANCE: cooperative HENMT: COMMON NORMALS: normocephalic HEAD & SCALP: normocephalic MOUTH: Normal oral and palatal mucosa present THROAT: posterior oropharynx normal and uvula midline Eye: COMMON NORMALS: Equal, round and reactive pupils present PUPIL: Yes Equal, round and reactive pupils present Neck/C-Spine: COMMON NORMALS: supple GENERAL: Yes normal visual inspection Resp: COMMON NORMALS: normal respiratory effort, No retractions, No use of accessory muscles and clear to auscultation bilaterally AUSCULTATION: clear to auscultation bilaterally Cardio: COMMON NORMALS: regular rate, regular rhythm, S1 normal heart sound present, S2 normal heart sound present, No gallops present (Cardio), No clicks present (Cardio), No murmurs present (Cardio) and Peripheral pulses 2+ throughout RATE: regular rate RHYTHM: regular rhythm HEART SOUNDS: S1 normal heart sound present and S2 normal heart sound present PERIPHERAL PULSES: Peripheral pulses 2+ throughout GI: COMMON NORMALS: Normal to inspection, nondistended, normoactive bowel sounds present, Soft to palpation, non-tender and no masses PALPATION: Yes Soft to palpation : COMMON NORMALS: Yes no CVA tenderness BLADDER/KIDNEY EXAM: Yes no CVA tenderness Back/Pelvis: COMMON NORMALS: no CVA tenderness Extremity: COMMON NORMALS: normal to inspection Neuro: COMMON NORMALS: patient oriented x3 and moves all extremities SENSORIUM/ORIENTATION: Yes alert Psych: COMMON NORMALS: Normal thought process present and speech normal APPEARANCE: Yes grossly normal ATTITUDE: Yes calm ACTIVITY/MOTOR BEHAVIOR: Yes appropriate eye contact SPEECH: Yes normal speech MOOD & AFFECT: Yes elevated mood and Yes anxious THOUGHT PROCESS: Normal thought process present THOUGHT CONTENT: Yes Suicidality present (Thoughts of wanting to shoot himself in the head and when he sees scissors he thinks about stabbing himself.), Yes Homicidality present and Yes Hallucination(s) present auditory (Hears people saying negative things about him) and visual (Endorses seeing multiple lights) ATTENTION/CONCENTRATION: Yes attention grossly intact and Yes concentration grossly intact MEMORY/COGNITION: Yes memory grossly intact and Yes cognition grossly intact INSIGHT: Limited insight present (Psych) JUDGEMENT: Limited judgement present (Psych) Skin: COMMON NORMALS: no rashes or lesions noted GENERAL SKIN EXAM: no rashes or lesions noted and dry skin MDM - Psych MDM Narrative: Medical decision making narrative: Patient is a 49-year-old male who comes to the ED via EMS for psych evaluation. Patient was just released earlier today from psych unit at [facility] in [place] for same complaint. Patient was saying that he was suicidal. I contacted Dr. Bond and he performed a telemetry conference with patient. Dr. Bond screened this patient and told me that he does not meet NPU admission criteria. Patient was discharged and instructed that he can return to the ED with any worsening symptoms. Lab Data: Attestation: I reviewed the patient's lab results. Labs: Lab Results 11/30/19 11/30/19 11/30/19 Range/Units 21:51 21:51 22:00 WBC 12.0 H (4.0-10.0) 10^3/ uL RBC 4.90 (4.1-5.3) 10^6/u L Hgb 16.1 (11.7-16.6) g/dL Hct 48.2 (42.0-52.0) % MCV 98.4 H (80-94) fL MCH 32.9 (28.0-34.0) pg MCHC 33.4 (30.0-36.0) g/dL RDW 12.4 (12.1-15.1) % Plt Count 232 (130-400) 10^3/c mm MPV 9.7 (7.4-10.4) fL Neut % (Auto) 76.1 % Lymph % (Auto) 12.4 % [place] % (Auto) 8.0 % Eos % (Auto) 2.4 % Baso % (Auto) 0.6 % Neut # (Auto) 9.10 H (1.8-7.7) 10^3/u L Lymph # (Auto) 1.5 (0.8-4.8) 10^3/u L [place] # (Auto) 1.0 H (0.2-0.9) 10^3/u L Eos # (Auto) 0.3 (0.0-0.8) 10^3/u L Baso # (Auto) 0.1 (0.0-0.1) 10^3/u L Nucleated RBC % (a uto) 0 % Nucleated RBCs # 0.0 /100WBC Sodium (136-145) mmol/L Potassium (3.5-5.1) mmol/L Chloride (98-107) mmol/L Carbon Dioxide (22-29) mmol/L Anion Gap (5-19) BUN (6-20) mg/dL Creatinine (0.7-1.2) mg/dL GFR Calculation (90-130) mL/min Glucose (65-115) mg/dL Calculated Osmolal ity (285-295) mOsm/k g Calcium (8.5-10.5) mg/dL Total Bilirubin (0.15-1.2) mg/dL AST (0-40) U/L ALT (0-41) U/L Alkaline Phosphata se (40-130) IU/L Total Protein (6.6-8.7) g/dL Albumin (3.5-5.2) g/dL Globulin (1.3-4.6) g/dL Urine Color Yellow (Yellow) Urine Appearance Clear (CLEAR) Urine pH 6 (5-7) Ur Specific Gravit y 1.020 (1.005-1.030) Urine Protein Neg (Negative) Urine Glucose (UA) Norm (Normal) Urine Ketones Negative (Negative) Urine Blood Neg (Negative) Urine Nitrate Negative (Negative) Urine Bilirubin Neg (Negative) Urine Urobilinogen Norm (Negative) mg/dL Ur Leukocyte Viktoria ase Negative (Negative) Salicylates (3-10) mg/dL Urine Opiates Scre en Negative (Negative) ng/mL Acetaminophen (10-30) ug/mL Ur Barbiturates Sc reen Negative (Negative) ng/mL Ur Phencyclidine S crn Negative (Negative) ng/mL Ur Amphetamines Sc reen Negative (Negative) ng/mL U Benzodiazepines Scrn Negative (Negative) ng/mL Urine Cocaine Scre en Negative (Negative) ng/mL U Marijuana (THC) Screen Negative (Negative) ng/mL Ethyl Alcohol (0-10) mg/dL 11/30/19 Range/Units 22:00 WBC (4.0-10.0) 10^3/ uL RBC (4.1-5.3) 10^6/u L Hgb (11.7-16.6) g/dL Hct (42.0-52.0) % MCV (80-94) fL MCH (28.0-34.0) pg MCHC (30.0-36.0) g/dL RDW (12.1-15.1) % Plt Count (130-400) 10^3/c mm MPV (7.4-10.4) fL Neut % (Auto) % Lymph % (Auto) % [place] % (Auto) % Eos % (Auto) % Baso % (Auto) % Neut # (Auto) (1.8-7.7) 10^3/u L Lymph # (Auto) (0.8-4.8) 10^3/u L [place] # (Auto) (0.2-0.9) 10^3/u L Eos # (Auto) (0.0-0.8) 10^3/u L Baso # (Auto) (0.0-0.1) 10^3/u L Nucleated RBC % (a uto) % Nucleated RBCs # /100WBC Sodium 141 (136-145) mmol/L Potassium 4.0 (3.5-5.1) mmol/L Chloride 103 (98-107) mmol/L Carbon Dioxide 28 (22-29) mmol/L Anion Gap 14.0 (5-19) BUN 17 (6-20) mg/dL Creatinine 0.9 (0.7-1.2) mg/dL GFR Calculation 89.3 L (90-130) mL/min Glucose 98 (65-115) mg/dL Calculated Osmolal ity 294 (285-295) mOsm/k g Calcium 9.7 (8.5-10.5) mg/dL Total Bilirubin 0.3 (0.15-1.2) mg/dL AST 45 H (0-40) U/L ALT 43 H (0-41) U/L Alkaline Phosphata se 87 (40-130) IU/L Total Protein 7.7 (6.6-8.7) g/dL Albumin 4.7 (3.5-5.2) g/dL Globulin 3.0 (1.3-4.6) g/dL Urine Color (Yellow) Urine Appearance (CLEAR) Urine pH (5-7) Ur Specific Gravit y (1.005-1.030) Urine Protein (Negative) Urine Glucose (UA) (Normal) Urine Ketones (Negative) Urine Blood (Negative) Urine Nitrate (Negative) Urine Bilirubin (Negative) Urine Urobilinogen (Negative) mg/dL Ur Leukocyte Viktoria ase (Negative) Salicylates < 0.3 L (3-10) mg/dL Urine Opiates Scre en (Negative) ng/mL Acetaminophen < 5.0 L (10-30) ug/mL Ur Barbiturates Sc reen (Negative) ng/mL Ur Phencyclidine S crn (Negative) ng/mL Ur Amphetamines Sc reen (Negative) ng/mL U Benzodiazepines Scrn (Negative) ng/mL Urine Cocaine Scre en (Negative) ng/mL U Marijuana (THC) Screen (Negative) ng/mL Ethyl Alcohol < 10 (0-10) mg/dL EKG Data^: EKG 1: Attestation: I personally reviewed and interpreted this EKG as follows: EKG interpretation date: 11/30/19 Interpretation: Sinus rhythm, 77 bpm, no ST segment elevation or depression seen. Discharge Plan Discharge Patient Disposition: Home Clinical Impression: Psychiatric complaint Condition: Stable Discharge Orders: Discharge Order (Routine); Ordered 11/30/19 Ordered By: Johnathan Sharma Discharge Diet: Regular Discharge Activity: Resume usual activity Activity Restrictions/Additional Instructions: Follow-up with medical provider as directed in 7-10 days. Continue home medications as previously prescribed. Return to the ER or your medical provider if condition worsens. Please read and understand discharge instructions. If any questions, please ask. Discharge Date/Time: 11/30/19 22:59 Coding Level of Care Code ED Looper Operator for Wilder 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
[2019-11-30 22:12] LABS: Basophils # 0.1 10^3/uL (0.0-0.1); Basophils % 0.6 %; Eosinophils # 0.3 10^3/uL (0.0-0.8); Eosinophils % 2.4 %; Hematocrit 48.2 % (42.0-52.0); Hemoglobin 16.1 g/dL (11.7-16.6); Lymphocytes # 1.5 10^3/uL (0.8-4.8); Lymphocytes % 12.4 %; Mean Corpuscular HGB Conc 33.4 g/dL (30.0-36.0); Mean Corpuscular Hemoglobin 32.9 pg (28.0-34.0); Mean Corpuscular Volume 98.4 fL (80-94); Mean Platelet Volume 9.7 fL (7.4-10.4); Neutrophils % 76.1 %; Nucleated Red Blood Cells % 0 %; Platelet Count 232 10^3/cmm (130-400); Red Cell Distribution Width 12.4 % (12.1-15.1)
[2019-11-30 22:16] LABS: Add Urine Microscopic? NO
[2019-11-30 22:29] LABS: Alanine Aminotransferase 43 U/L (0-41); Albumin Level 4.7 g/dL (3.5-5.2); Alkaline Phosphatase 87 IU/L (40-130); Aspartate Amino Transferase 45 U/L (0-40); Blood Urea Nitrogen 17 mg/dL (6-20); Calcium 9.7 mg/dL (8.5-10.5); Carbon Dioxide 28 mmol/L (22-29); Chloride 103 mmol/L (98-107); Glomerular Filtration Rate 89.3 mL/min (90-130); Glucose 98 mg/dL (65-115); Osmolality Calculated 294 mOsm/kg (285-295); Sodium 141 mmol/L (136-145); Total Bilirubin 0.3 mg/dL (0.15-1.2); Total Protein 7.7 g/dL (6.6-8.7)
[2019-11-30 22:30] LABS: Acetaminophen < 5.0 ug/mL (10-30); Alcohol Level < 10 mg/dL (0-10); Salicylate < 0.3 mg/dL (3-10)
[2019-11-30 22:38] LABS: Bilirubin Urine Neg (Negative); Blood Urine Neg (Negative); Glucose Urine UA Norm (Normal); Ketones Urine Negative (Negative); Leukocyte Esterase Urine Negative (Negative); Nitrate Urine Negative (Negative); Protein Urine Neg (Negative); Urine Appearance Clear (CLEAR); Urine Color Yellow (Yellow); Urobilinogen Urine Norm (Negative); pH Urine 6 (5-7)
[2019-11-30 22:43] LABS: Amphetamines Screen Urine Negative (Negative); Barbiturates Screen Urine Negative (Negative); Benzodiazepines Screen Urine Negative (Negative); Cocaine Screen Urine Negative (Negative); Opiate Screen Urine Negative (Negative); PCP Screen Urine Negative (Negative); THC Screen Urine Negative (Negative)
== END 2019-11-30 22:59 | disposition home or self-care (01) ==
PROVIDERS: Emergency Provider Physician Assistant
DX: R45.851 Suicidal ideations (principal)
CPT/HCPCS: 12345; 80053; 80306; 80307; 81003; 85025; 93005; 99284

== ENCOUNTER 2020-04-18 02:56 | Inpatient (IN) | payer MEDICARE, MEDICAID, SELFPAY ==
[2020-04-18 02:58] VITALS: BP 145/69; PULSE 100; RESP 22; TEMP 36.4; O2SAT 98; BMI 26.4
--- NOTE | 2020-04-18 03:06 | ECG_ITS ---
[facility] Test Date: 2020-04-18 Pat Name: Emil Castro Department: Room: Gender: Male Vendor Management Associate: : [id number] Requested By: Kelsie Lea Order Number: [id number] Elise MD: Byron Jones M.D. Measurements Intervals Dike Rate: 80 P: 49 IA: 174 QRS: 0 QRSD: 120 T: 69 QT: 415 QTc: 481 Interpretive Statements SINUS RHYTHM MODERATE INTRAVENTRICULAR CONDUCTION DELAY [110+ ms QRS DURATION] Compared to ECG 11/30/2019 22:10:17 Intraventricular conduction delay now present Electronically Signed On 04-18-2020 19:48:59 PIPELINE CONSTRUCTION INSPECTOR by Byron Jones M.D. [email or web address]
[2020-04-18 03:21] LABS: Basophils # 0.1 10^3/uL (0.0-0.1); Basophils % 0.6 %; Eosinophils # 0.2 10^3/uL (0.0-0.8); Eosinophils % 1.3 %; Hemoglobin 14.6 g/dL (11.7-16.6); Lymphocytes # 2.2 10^3/uL (0.8-4.8); Lymphocytes % 16.7 %; Mean Corpuscular Hemoglobin 32.2 pg (28.0-34.0); Mean Corpuscular Volume 94.7 fL (80-94); Mean Platelet Volume 10.4 fL (7.4-10.4); Monocytes # 1.6 10^3/uL (0.2-0.9); Neutrophils # 8.99 10^3/uL (1.8-7.7); Nucleated Red Blood Cells % 0 %; Platelet Count 212 10^3/cmm (130-400); Red Blood Count 4.54 10^6/uL (4.1-5.3); Red Cell Distribution Width 12.2 % (12.1-15.1)
--- NOTE | 2020-04-18 03:21 | W.ED.PSYCH ---
HPI - Psych General: Chief Complaint: Psychiatric Symptoms Stated Complaint: SI Time Seen by Provider: 04/18/20 02:58 Source: patient and police Mode of arrival: other (Police vehicle) Limitations: altered mental status History of Present Illness: HPI Narrative: 49-year-old male states that he used crystal meth 3 days ago, and since then has felt depressed, anxious, and suicidal. reports that he feels this way every time he does drugs . Threatens to do anything he can to kill himself including taking pills, stabbing himself. He was threatening to jump off a steep embankment police arrived. MD complaint: suicidal ideation and feels depressed History of same: Yes Exacerbating factors: drug use Context: recent drug abuse Associated psychiatric symptoms: suicidal ideation, racing thoughts and delusions Associated symptoms: Reports delusions and suicidal ideation If self harm: admits thoughts of self harm Review of Systems General: Reports: ROS unobtainable due to mental status Card: Denies: chest pain or palpitations Psych: Reports: anxiety, depression, mood swings, sleeping less, irritability, paranoia and suicidal ideation PFS ED PFSH: Social History Smoking and tobacco status: current every day smoker Physical Exam Const: COMMON NORMALS: average body habitus and alert GENERAL APPEARANCE: anxious, disheveled and diaphoretic ORIENTATION/CONSCIOUSNESS: Yes awake, Yes oriented to person and Yes oriented to place; not oriented to time HENMT: COMMON NORMALS: normocephalic and atraumatic HEAD & SCALP: normocephalic and atraumatic FACE & SINUS: normal facial exam and face symmetric Eye: COMMON NORMALS: EOMs intact bilaterally, conjunctivae normal and no scleral icterus CONJUNCTIVA: Yes conjunctivae normal PUPIL: Yes Dilated pupils bilaterally Resp: COMMON NORMALS: normal respiratory effort; negative for No use of accessory muscles EFFORT & INSPECTION: No tachypneic and No respiratory distress Cardio: COMMON NORMALS: regular rhythm, S1 normal heart sound present and S2 normal heart sound present RATE: tachycardic RHYTHM: regular rhythm HEART SOUNDS: S1 normal heart sound present and S2 normal heart sound present Extremity: GENERAL: Yes normal exam except as noted, No cyanosis, No deformity, No edema, No mottling and No pallor Neuro: COMMON NORMALS: moves all extremities, no focal motor deficits and gait normal SENSORIUM/ORIENTATION: Yes alert, Yes oriented to person, Yes oriented to place and No oriented to time GAIT: Yes Normal gait present MOTOR EXAM: no tremor noted, no asterixis, Motor fasciculations not present and No Motor abnormalites present Psych: APPEARANCE: Yes disheveled ATTITUDE: Yes agitated ACTIVITY/MOTOR BEHAVIOR: Yes psychomotor agitation, Yes hyperactivity, Yes disorganized behavior and Yes restless SPEECH: Yes excessive and Yes rapid MOOD & AFFECT: Yes anxious, Yes irritable and Yes Labile affect present THOUGHT PROCESS: disorganized, Flight of ideas present, Tangential thought process present and racing thoughts THOUGHT CONTENT: Yes Suicidality present, No Homicidality present, Yes delusions Delusional thought content details: persecutory and Yes Hallucination(s) present auditory ATTENTION/CONCENTRATION: Yes attention grossly impaired and Yes concentration grossly impaired MEMORY/COGNITION: Yes memory grossly impaired and Yes cognition grossly impaired INSIGHT: Poor insight present (Psych) JUDGEMENT: Poor judgement present (Psych) Skin: COMMON NORMALS: no rashes or lesions noted GENERAL SKIN EXAM: no rashes or lesions noted, no ecchymo, no mottling, no petechiae and no purpura MDM - Psych MDM Narrative: Medical decision making narrative: 49-year-old male with acute drug-induced psychosis and suicidal ideation. Vital signs and preliminary lab work stable. No acute ischemic changes on EKG. Patient is alert and cooperative, but very agitated, hyperactive, and anxious. Improved with oral Zyprexa and IM lorazepam. Discussed the case with Dr. Bond, psychiatry, who accepts admission to the neuropsych unit. Medical Records: Attestation: I reviewed the patient's medical records. Lab Data: Attestation: I reviewed the patient's lab results. Labs: Lab Results 04/18/20 04/18/20 04/18/20 Range/Units 03:15 03:15 03:15 WBC 13.0 H (4.0-10.0) 10^3/ uL RBC 4.54 (4.1-5.3) 10^6/u L Hgb 14.6 (11.7-16.6) g/dL Hct 43.0 (42.0-52.0) % MCV 94.7 H (80-94) fL MCH 32.2 (28.0-34.0) pg MCHC 34.0 (30.0-36.0) g/dL RDW 12.2 (12.1-15.1) % Plt Count 212 (130-400) 10^3/c mm MPV 10.4 (7.4-10.4) fL Neut % (Auto) 69.0 % Lymph % (Auto) 16.7 % Mellette % (Auto) 12.0 % Eos % (Auto) 1.3 % Baso % (Auto) 0.6 % Neut # (Auto) 8.99 H (1.8-7.7) 10^3/u L Lymph # (Auto) 2.2 (0.8-4.8) 10^3/u L Mellette # (Auto) 1.6 H (0.2-0.9) 10^3/u L Eos # (Auto) 0.2 (0.0-0.8) 10^3/u L Baso # (Auto) 0.1 (0.0-0.1) 10^3/u L Nucleated RBC % (a uto) 0 % Nucleated RBCs # 0.0 /100WBC Sodium 139 (136-145) mmol/L Potassium 3.7 (3.5-5.1) mmol/L Chloride 102 (98-107) mmol/L Carbon Dioxide 25 (22-29) mmol/L Anion Gap 15.7 (5-19) BUN 18 (6-20) mg/dL Creatinine 0.8 (0.7-1.2) mg/dL GFR Calculation 102.3 (90-130) mL/min Glucose 86 (65-115) mg/dL Calculated Osmolal ity 289 (285-295) mOsm/k g Calcium 9.1 (8.5-10.5) mg/dL Total Bilirubin 1.9 H (0.15-1.2) mg/dL AST 47 H (0-40) U/L ALT 34 (0-41) U/L Alkaline Phosphata se 96 (40-130) IU/L Total Protein 7.3 (6.6-8.7) g/dL Albumin 4.7 (3.5-5.2) g/dL Globulin 2.6 (1.3-4.6) g/dL TSH 1.02 (0.27-4.20) uIU/ mL Salicylates < 0.3 L (3-10) mg/dL Acetaminophen < 5.0 L (10-30) ug/mL Ethyl Alcohol < 10 (0-10) mg/dL EKG Data^: EKG 1: Attestation: I personally reviewed and interpreted this EKG as follows: Discharge Plan Discharge Patient Disposition: Admitted As Inpatient Admit Provider: Sam Bond Clinical Impression: Suicidal ideation Drug-induced psychotic disorder Qualifiers: Complication of substance-induced condition: with delusions Qualified Code(s): F19.950 - Other psychoactive substance use, unspecified with psychoactive substance-induced psychotic disorder with delusions Condition: Stable Coding Level of Care Code ED Newspaper Press Operator Apprentice for Wilder 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
[2020-04-18] MEDS: OLANZapine 5 mg ODT PO (03:30)
[2020-04-18] MEDS: LORazepam 2 mg/mL INJ 1 mL IM (03:30)
[2020-04-18 03:52] LABS: Alanine Aminotransferase 34 U/L (0-41); Albumin Level 4.7 g/dL (3.5-5.2); Alkaline Phosphatase 96 IU/L (40-130); Anion Gap 15.7 (5-19); Aspartate Amino Transferase 47 U/L (0-40); Blood Urea Nitrogen 18 mg/dL (6-20); Calcium 9.1 mg/dL (8.5-10.5); Carbon Dioxide 25 mmol/L (22-29); Chloride 102 mmol/L (98-107); Globulin 2.6 g/dL (1.3-4.6); Glomerular Filtration Rate 102.3 mL/min (90-130); Glucose 86 mg/dL (65-115); Osmolality Calculated 289 mOsm/kg (285-295); Potassium 3.7 mmol/L (3.5-5.1); Sodium 139 mmol/L (136-145); Thyroid Stimulating Hormone 1.02 uIU/mL (0.27-4.20); Total Bilirubin 1.9 mg/dL (0.15-1.2); Total Protein 7.3 g/dL (6.6-8.7)
[2020-04-18 04:00] LABS: Alcohol Level < 10 mg/dL (0-10)
[2020-04-18 04:06] LABS: Acetaminophen < 5.0 ug/mL (10-30); Salicylate < 0.3 mg/dL (3-10)
[2020-04-18 06:00] VITALS: BP 138/78; PULSE 103; RESP 17; TEMP 36.7; O2SAT 98
[2020-04-18 06:12] VITALS: BP 138/78; PULSE 103; RESP 17; TEMP 36.7; O2SAT 98
[2020-04-18 14:00] VITALS: BP 110/88; PULSE 88; RESP 16; TEMP 36.9; O2SAT 98
--- NOTE | 2020-04-18 17:32 | P.HP_ITS ---
Providers/Chief Complaint Admitting Physician: Sam Bond MD Chief Complaint: SI HPI NPU History of Present Illness Emil Castro is a 49 year old male who presented to the emergency department with the following report: Chief Complaint: Psychiatric Symptoms Stated Complaint: SI Time Seen by Provider: 04/18/20 02:58 Source: patient and police Mode of arrival: other (Police vehicle) Limitations: altered mental status History of Present Illness: HPI Narrative: 49-year-old male states that he used crystal meth 3 days ago, and since then has felt depressed, anxious, and suicidal. reports that he feels this way every time he does drugs . Threatens to do anything he can to kill himself including taking pills, stabbing himself. He was threatening to jump off a steep embankment police arrived. MD complaint: suicidal ideation and feels depressed History of same: Yes Exacerbating factors: drug use Context: recent drug abuse Associated psychiatric symptoms: suicidal ideation, racing thoughts and delusions Associated symptoms: Reports delusions and suicidal ideation If self harm: admits thoughts of self harm. He was admitted to the neuropsychiatric unit for definitive treatment of those i ssues. Emil is quite well known to the inpatient unit and had not been admitted here for some time secondary to the fact that his primary presentation is malingering. He has not been admitted by this screen writer since July 2019 for this very reason. He has been in over utilizer services and his presentation and what he says during his presentation generally has little to do with the circumstances surrounding the admission. He presents today as a extremely resistant historian having just finished dinner where he was fully coherent and able to request an additional milk from this screen writer, now while in his room the best he can generate are monosyllabic grunts for the most part. He does occasionally say words but now he is just so in a place that answers us gave him and what ever we say will be sufficient. He reports that he had been off of his medication for some time, fully relapse and not using drugs and endorsed that his housing with his significant other in [place] ended with that relationship because she could not handle all of the drug use and he really had no information for me regarding any interim history since he was last seen by this screen writer. He more or less gave carb wants to start not on medication that this screen writer sees fit. We did discuss the fact that we connected with a retirement that he had been in and they identify they would take him back as soon as tomorrow and he said okay but is unclear what that even means. We briefly reviewed his last hospitalization with this screen writer, at least the evaluation and an excerpt is included below for context. Per his 07/31/2019 [facility] inpatient psychiatric eval: History of Present Illness Emil Castro is a 49 year old male who presents today reporting that he is struggling but seemed open to be discharged tomorrow if the issue was pushed. We had a discussion about our last encounter which is included below. We discussed concerns about his authenticity and truthfulness and reporting. He continues to report that he had been in [place], had not been in the hospital since this previous encounter, had not been on his medication since the previous encounter, and he has not been using methamphetamine. We agreed that it is our desire to assist him in anything that would be called progress in his recovery. We set a goal for discharge on Friday allowing the treatment team to be fully assembled to assist in possible community resources. We discussed the risks benefits and alternatives of restarting his medications at the previous dosing just prior to that last hospitalization, and he understood and agreed to proceed as is documented in this note. Psychiatric history: It is likely that between hospitalizations and rehab stays that Emil has at least 50-75 encounters and that might be low balling it. He has been on multiple medications but his adherence is highly questionable. Substance abuse history: He smokes cigarettes, drinks alcohol regularly and has smoked weed off and on. He has had significant difficulties with methamphetamine and at different times accordingly on a struggle with basically everything. He has had significant rehab stents sometimes going to rehabs to 3 times in a year. Currently his UDS was negative for all drugs of abuse. He denies any substantive changes in his psychosocial history with some elements of that reported below in the most recent evaluation. Per his last [facility] eval: History of Present Illness Date of Service: Feb 19, 2019 Reason for Consultation: Presentation to the emergency room after discharge seeking readmission Consulting Service and Doctor: Sam Bond M.D. Psychiatry. HPI: Emil presents to the emergency room requesting to be admitted to the hospital where he was just discharged. He has had 11 inpatient hospitalizations at [facility] this calendar year, 20+ emergency room visits at [facility] this calendar year, [facility], myriad of other hospitalizations at other facilities, so she'll stays, and multiple investments in transportation to get him all over the state just this year alone. Many of his stays at these facilities are 1 right behind another. This behavior was seen by him in [facility] as well as here. Times where he is in the hospital for 7-10 days, followed by inpatient rehabilitation for 21-30 days followed by an emergency room visit a day or 2 later back to hospitalization. There is limited indication of any effectiveness of any of this treatment at this point. There've been a few episodes of psychosis secondary to the methamphetamine. But in general it simply him reporting that he is suicidal, that he is depressed and that he wants to stop using. He presents to the hospitalizations positive for methamphetamine generally has a few days of withdrawal, become more active and requesting to be sent to some facility and not be discharged prior to that point. We have discussed at length our belief that the only chance he has to make a change is to be in a long-term program or unfortunately be locked up by the police for an extended period of time to try to get him enough sobriety to maybe have a clear enough mind to make some changes. Unfortunately the diagnosis of malingering in conjunction with his antisocial personality disorder make for a tough combination and make evaluation difficult given that he is really says when he has come to understand we'll work to get him admitted. Allergies: Coded Allergies: AMOXICILLIN (Verified Allergy, Unknown, UNABLE TO BREATH AND THROAT SWELLS, 04/18/18) PENICILLINS (Verified Allergy, Unknown, 04/18/18) Home Meds: Home Medications: Active Seroquel Tab (Quetiapine Fumarate) 100 Mg Tablet 300 Mg PO BEDTIME 30 Days Seroquel Tab (Quetiapine Fumarate) 50 Mg Tablet 50 Mg PO BID 30 Days Prozac Cap (Fluoxetine HCl) 20 Mg Tablet 20 Mg PO DAILY 30 Days Past Medical History Other Family Medical History: Unchanged from the recent hospitalization. Other Past Social History: Unchanged from the recent hospitalization. Physical Exam Physical Exam: This is a obese white male with adequate rest, grooming and eye contact. No abnormal movements except for psychomotor retardation. Semicooperative with exam. In mild distress. Speech was decreased rate and volume with a little slurring of his voice. Mood described as depressed, affect lethargic. Thought process organized. Thought content: Patient endorsed suicidal ideation but denied homicidal ideation, there were no delusions reported are noted, he denied any auditory or visual hallucinations. Attention and concentration were intact and memory was unreliable but none were formally tested. He is alert and orient ed ?3. Insight and judgment are impaired. Assessment/Problem List Assessment/Problem List Other Assessment/Problem List: Malingering, antisocial personality disorder methamphetamine use disorder sev ere, rule out methamphetamine-induced mood disorder, depressive disorder unspecified, insomnia Plan This is a 48-year-old white male well known to this screen writer from hospitalization in [facility] as well as here at [facility] who presents as hours after he was discharged by this screen writer from the neuropsych unit after being on a 96 hour hold. He is concluding this year having had double digit admissions, reportedly almost twice as many ER visits, at least 6 inpatient rehabs and multiple stays at other psychiatric facilities. He has significant addiction issues which has led to significant psychosocial dysfunction, homelessness, and episodes of mood dysregulation and psychosis. He presents as he has many times with clear desire to have somewhere to go when he has nowhere to go. 1. Emil is not without risk for poor outcomes given his high impulsivity with the antisocial personality disorder, high impulsivity with addiction and feeling like his options are running out. However he has no significant history of acts of furtherance with his suicidal thoughts. He has mostly had suicidal threats which have been answered by admissions. The outcome of our response as the treatment community is that he has been in institutional settings 4 more days than not this year. And even with that, we find ourselves with him presenting for his third attempt at hospitalization here in the last 2 weeks. Given his profile, he has some risk for lethality/self-harm but that same risk exists every time we discharge him throughout the year. As he and I discussed during this recent hospitalization, we're are at a point where it feels like we the system are a part of the problem. 2. The assessment is that he has malingering. He generally talks of big game from the standpoint of saying that he has plenty of places to go he's just depressed. But in conversations about his son's he reports he can go there but he never does. 3. At this point just in this calendar year we have spent four figures getting counseling locations only to have home not stay or return as soon as that treatment regimen is completed. 4. At this point we cannot admit him every time he presents saying he's thinking bad things or something like that. We must encourage him to utilize community resources like the ones we gave him but he did not call while he was admitted. His expectation on the unit is for everyone to work to find him a place to go but he is not participating in the work to find him a place to go. Then becomes time for discharge and he reports that he is not ready. He was even offered the opportunity to spin the morning calling some of the resources he was given and he refused and reported he would just go stay at a friend's house. 5. He was given the number to resources, the [facility], some of the [employer] resources in the community given his lack of insurance. It would be appropriate for him to continue to seek those out. 6. Staff/evaluated should be prepared for him to possibly be aggressive as he has become quite frustrated with him not being admitted because he said he was suicidal. 7. However the overall recommendation is for him to discharge not be readmitted to the NPU Medical Necessity Statement: Inpatient hospitalization is not medically necessary. In fact this point given the issue with malingering and him not making significant changes in his life, admitting him is becoming part of the problem and preventing him from having to face circumstances that he is creating with his choices. Meds NPU Home Medications Medication Instructions Recorded Confirmed Last Taken Type Unable to Assess 04/18/20 04/18/20 Unknown History Allergies Allergy/AdvReac Type Severity Reaction Status Date / Time Penicillins Allergy ALGY-Hives Verified 08/21/19 14:59 PFSH NPU PFSH: Social History Smoking and tobacco status: current every day smoker Mental Status Exam MSE Comments: This is a overweight white male in hospital scrubs with the dressing and eye contact. No abnormal movements except for psychomotor agitation. Uncooperative with exam in mild distress. Speech was limited and increased rate normal volume. Mood described as I do not know, affect ir ritated. Thought process organized. Thought content: Patient endorsed suicidal ideation when he was admitted but denied homicidal ideation, there were no delusions reported or noted, he denied any auditory or visual hallucinations. Attention and concentration were limited and memory was unreliable but none were formally tested. He is alert and oriented x3. Insight and judgment are limited, impulse control is impaired. Vitals/I&O/Wt Last Vital Signs Temp 98.2 F 04/18/20 20:16 Pulse 93 04/18/20 20:16 Resp 16 04/18/20 20:16 BP 111/72 04/18/20 20:16 Pulse Ox 99 04/18/20 20:16 Weight last 48 hrs Weight 90.718 kg Data NPU : 04/18/20 03:15 04/18/20 03:15 A&P Additional A&P Information (1) Depressed bipolar I disorder: (2) Antisocial personality disorder: (3) Malingering: This is a 49-year-old white male with a long history of mental health issues as well as addiction issues who presents endorsing suicidal thoughts, off of his medication open to restarting his medication. 1. Continue current medication. 2. Continue to 15-minute checks for safety. 3. Encouraged individual, group and milieu therapy. 4. We will work with the treatment team to explore what resources exist for him for some sort of sober living environment at the highest level of care to which he is willing to commit. 5. Given his history of malingering we should identify resources and discharged quickly. Involuntary Hold Information 96 Hour Hold: 96 Hour Involuntary Admission: No Attestations NPU Medical Necessity Statement*: Inpatient hospitalization is medically necessary and the clinically appropriate intervention at this time. We will monitor medications and make changes as indicated. Patient will be in the hospital for over two midnights. Likely length of stay 1-3 days. Coding Level of Care Code Acute Graduation Coach for Wilder Long
[2020-04-18 20:16] VITALS: BP 111/72; PULSE 93; RESP 16; TEMP 36.8; O2SAT 99
[2020-04-19 06:00] VITALS: BP 121/74; PULSE 68; RESP 16; TEMP 36.8; O2SAT 97
--- NOTE | 2020-04-19 10:36 | P.DS_ITS ---
Diagnoses at Discharge Discharge Diagnosis (1) Drug-induced psychotic disorder: Status: Acute Qualifiers: Complication of substance-induced condition: with delusions Qualified Code(s): F19.950 - Other psychoactive substance use, unspecified with psychoactive substance-induced psychotic disorder with delusions (2) Suicidal ideation: Status: Resolved (3) Malingering: Status: Acute (4) Antisocial personality disorder: Status: Chronic (5) Depressed bipolar I disorder: Status: Resolved Permanent problem details: Patient does not name and get his prescriptions filled when discharged. I am discontinuing all his meds and referring him to outpatient follow-up. Reason for Visit Reason for Visit: SI Brief History: History of Present Illness Emil Castro is a 49 year old male who presented to the emergency department with the following report: Chief Complaint: Psychiatric Symptoms Stated Complaint: SI Time Seen by Provider: 04/18/20 02:58 Source: patient and police Mode of arrival: other (Police vehicle) Limitations: altered mental status History of Present Illness: HPI Narrative: 49-year-old male states that he used crystal meth 3 days ago, and since then has felt depressed, anxious, and suicidal. reports that he feels this way every time he does drugs . Threatens to do anything he can to kill himself including taking pills, stabbing himself. He was threatening to jump off a steep embankment police arrived. MD complaint: suicidal ideation and feels depressed History of same: Yes Exacerbating factors: drug use Context: recent drug abuse Associated psychiatric symptoms: suicidal ideation, racing thoughts and delusions Associated symptoms: Reports delusions and suicidal ideation If self harm: admits thoughts of self harm. He was admitted to the neuropsychiatric unit for definitive treatment of those issues. Emil is quite well known to the inpatient unit and had not been admitted here for some time secondary to the fact that his primary presentation is malingering. He has not been admitted by this writer technical publications since July 2019 for this very reason. He has been in over utilizer services and his presentation and what he says during his presentation generally has little to do with the circumstances surrounding the admission. He presents today as a extremely resistant historian having just finished dinner where he was fully coherent and able to request an additional milk from this writer technical publications, now while in his room the best he can generate are monosyllabic grunts for the most part. He does occasionally say words but now he is just so in a place that answers us gave him and what ever we say will be sufficient. He reports that he had been off of his medication for some time, fully relapse and not using drugs and endorsed that his housing with his significant other in [place] ended with that relationship because she could not handle all of the drug use and he really had no information for me regarding any interim history since he was last seen by this writer technical publications. He more or less gave carb wants to start not on medication that this writer technical publications sees fit. We did discuss the fact that we connected with a retirement that he had been in and they identify they would take him back as soon as tomorrow and he said okay but is unclear what that even means. We briefly reviewed his last hospitalization with this writer technical publications, at least the evaluation and an excerpt is included below for context. Per his 07/31/[address] [facility] inpatient psychiatric eval: History of Present Illness Emil Castro is a 49 year old male who presents today reporting that he is struggling but seemed open to be discharged tomorrow if the issue was pushed. We had a discussion about our last encounter which is included below. We discussed concerns about his authenticity and truthfulness and reporting. He continues to report that he had been in [place], had not been in the hospital since this previous encounter, had not been on his medication since the previous encounter, and he has not been using methamphetamine. We agreed that it is our desire to assist him in anything that would be called progress in his recovery. We set a goal for discharge on Friday allowing the treatment team to be fully assembled to assist in possible community resources. We discussed the risks benefits and alternatives of restarting his medications at the previous dosing just prior to that last hospitalization, and he understood and agreed to proceed as is documented in this note. Psychiatric history: It is likely that between hospitalizations and rehab stays that Emil has at least 50-75 encounters and that might be low balling it. He has been on multiple medications but his adherence is highly questionable. Substance abuse history: He smokes cigarettes, drinks alcohol regularly and has smoked weed off and on. He has had significant difficulties with methamphetamine and at different times accordingly on a struggle with basically everything. He has had significant rehab stents sometimes going to rehabs to 3 times in a year. Currently his UDS was negative for all drugs of abuse. He denies any substantive changes in his psychosocial history with some elements of that reported below in the most recent evaluation. Per [place] [facility] [place]: History of Present Illness Date of Service: Feb 19, 2019 Reason for Consultation: Presentation to the emergency room after discharge seeking readmission Consulting Service and Doctor: Sam Bond M.D. Psychiatry. HPI: Emil presents to the emergency room requesting to be admitted to the hospital where he was just discharged. He has had 11 inpatient hospitalizations at [facility] this calendar [place], 20+ emergency room visits at [facility] this calendar year, 6 inpatient rehabilitation treatments this calendar year, myriad of other hospitalizations at other facilities, so she'll stays, and multiple investments in transportation to get him all over the state just this year alone. Many of his stays at these facilities are 1 right behind another. This behavior was seen by him in [facility] as well as here. Times where he is in the hospital for 7-10 days, followed by inpatient rehabilitation for 21-30 days followed by an emergency room visit a day or 2 later back to hospitalization. There is limited indication of any effectiveness of any of this treatment at this point. There've been a few episodes of psychosis secondary to the methamphetamine. But in general it simply him reporting that he is suicidal, that he is depressed and that he wants to stop using. He presents to the hospitalizations positive for methamphetamine generally has a few days of withdrawal, become more active and requesting to be sent to some facility and not be discharged prior to that point. We have discussed at length our belief that the only chance he has to make a change is to be in a long-term program or unfortunately be locked up by the police for an extended period of time to try to get him enough sobriety to maybe have a clear enough mind to make some changes. Unfortunately the diagnosis of malingering in conjunction with his antisocial personality disorder make for a tough combination and make evaluation difficult given that he is really says when he has come to understand we'll work to get him admitted. Allergies: Coded Allergies: AMOXICILLIN (Verified Allergy, Unknown, UNABLE TO BREATH AND THROAT SWELLS, 04/18/18) PENICILLINS (Verified Allergy, Unknown, 04/18/18) Home Meds: Home Medications: Active Seroquel Tab (Quetiapine Fumarate) 100 Mg Tablet 300 Mg PO BEDTIME 30 Days Seroquel Tab (Quetiapine Fumarate) 50 Mg Tablet 50 Mg PO BID 30 Days Prozac Cap (Fluoxetine HCl) 20 Mg Tablet 20 Mg PO DAILY 30 Days Past Medical History Other Family Medical History: Unchanged from the recent hospitalization. Other Past Social History: Unchanged from the recent hospitalization. Physical Exam Physical Exam: This is a obese white male with adequate rest, grooming and eye contact. No abnormal movements except for psychomotor retardation. Semicooperative with ex am. In mild distress. Speech was decreased rate and volume with a little slurring of his voice. Mood described as depressed, affect lethargic. Thought process organized. Thought content: Patient endorsed suicidal ideation but denied homicidal ideation, there were no delusions reported are noted, he denied any auditory or visual hallucinations. Attention and concentration were intact and memory was unreliable but none were formally tested. He is alert and oriented ?3. Insight and judgment are impaired. Assessment/Problem List Assessment/Problem List Other Assessment/Problem List: Malingering, antisocial personality disorder methamphetamine use disorder severe, rule out methamphetamine-induced mood disorder, depressive disorder unspecified, insomnia Plan This is a 48-year-old white male well known to this writer technical publications from hospitalization in [facility] as well as here at [facility] who presents as hours after he was discharged by this writer technical publications from the neuropsych unit after being on a 96 hour hold. He is concluding this year having had double digit admissions, reportedly almost twice as many ER visits, at least 6 inpatient rehabs and multiple stays at other psychiatric facilities. He has significant addiction issues which has led to significant psychosocial dysfunction, homelessness, and episodes of mood dysregulation and psychosis. He presents as he has many times with clear desire to have somewhere to go when he has nowhere to go. 1Estrellita Stein is not without risk for poor outcomes given his high impulsivity with the antisocial personality disorder, high impulsivity with addiction and feeling like his options are running out. However he has no significant history of acts of furtherance with his suicidal thoughts. He has mostly had suicidal threats which have been answered by admissions. The outcome of our response as the treatment community is that he has been in institutional settings 4 more days than not this year. And even with that, we find ourselves with him presenting for his third attempt at hospitalization here in the last 2 weeks. Given his profile, he has some risk for lethality/self-harm but that same risk exists every time we discharge him throughout the year. As he and I discussed during this recent hospitalization, we're are at a point where it feels like we the system are a part of the problem. 2. The assessment is that he has malingering. He generally talks of big game from the standpoint of saying that he has plenty of places to go he's just depressed. But in conversations about his son's he reports he can go there but he never does. 3. At this point just in this calendar year we have spent four figures getting counseling locations only to have home not stay or return as soon as that treatment regimen is completed. 4. At this point we cannot admit him every time he presents saying he's thinking bad things or something like that. We must encourage him to utilize community resources like the ones we gave him but he did not call while he was admitted. His expectation on the unit is for everyone to work to find him a place to go but he is not participating in the work to find him a place to go. Then becomes time for discharge and he reports that he is not ready. He was even offered the opportunity to spin the morning calling some of the resources he was given and he refused and reported he would just go stay at a friend's house. 5. He was given the number to resources, the [facility], some of the Judaism resources in the community given his lack of insurance. It would be appropriate for him to continue to seek those out. 6. Staff/evaluated should be prepared for him to possibly be aggressive as he has become quite frustrated with him not being admitted because he said he was suicidal. 7. However the overall recommendation is for him to discharge not be readmitted to the NPU Medical Necessity Statement: Inpatient hospitalization is not medically necessary. In fact this point given the issue with malingering and him not making significant changes in his life, admitting him is becoming part of the problem and preventing him from having to face circumstances that he is creating with his choices. Hospital Course Hospital Course Emil presented to the emergency department with active addiction, irritability endorsing depression and suicidality without a place to stay, so he was admitted to the Neuropsychiatric unit for definitive treatment of those issues. Consistent with his history they were considerable concerns for malingering. He was resistant to treatment during the visit, but we were able to find him a bed at a retirement and he was able to contract for safety prior to discharge. No medi cations were initiated.During the hospitalization, patient had routine laboratory studies which were within normal limits except for few outliers. Additionally there was a general medical evaluation which was also within normal limits and revealed no new acute processes. Discharge Summary: At the time of discharge, he was absent lethality or psychosis. Mood and anxiety were well managed. Patient endorsed a plan to avoid all drugs of abuse and follow-up with the aftercare recommendations of the treatment team. Patient was evaluated and deemed to be absent credible lethality, and had achieved the maximum benefit from an inpatient hospitalization, so was discharged. Involuntary Hold Information 96 Hour Hold: 96 Hour Involuntary Admission: No Mental Status Exam MSE Comments: This is a overweight white male in hospital scrubs with limited grooming and eye contact. No abnormal movements except for resolving psychomotor agitation. More cooperative with exam in mild distress. Speech was limited and normal rate and volume. Mood described as okay, affect less irritable. Thought process organized. Thought content: Patient denied suicidal ideation when he was or homicidal ideation, there were no delusions reported or noted, he denied any auditory or visual hallucinations. Attention and concentration were limited and memory was unreliable but none were formally tested. He is alert and oriented x3. Insight and judgment are limited, impulse control is impaired. Discharge Data Data Completed and Pending: Pending at discharge Category Date Time Status Drug Screen, Urin e Routine Lab 04/19/20 05:45 Uncollected Drug Screen, Urin e Stat Lab 04/18/20 03:30 Ordered Urinalysis Stat Lab 04/18/20 03:30 Ordered Vitals: Last Vital Signs Temp 98.2 F 04/19/20 06:00 Pulse 68 04/19/20 06:00 Resp 16 04/19/20 06:00 BP 121/74 04/19/20 06:00 Pulse Ox 97 04/19/20 06:00 Discharge Plan Discharge Patient Disposition: Home Condition: Stable Prescriptions: Continued Unable to Assess RF: 0 Discharge Orders: Discharge Order (Routine); Ordered 04/19/20 Ordered By: Sam Bond Referrals: [facility] [Other] [facility] [Other] (Please follow up for your walk in assessment within 3-5 days of discharge. No call-ahead is necessary, just walk in and be seen. Bring your I.D., social security card or number, and insurance information We accept Medicare, Medicaid, numerous private insurance providers and accept self-pay on a sliding scale for those who qualify. ) Discharge Diet: Regular Discharge Activity: Resume usual activity Patient Instructions: Generalized Anxiety Disorder, Depression Discharge Attestations NPU Time Spent in Discharge Care*: less than 30 min Specific Discharge Activities: Specific discharge activities: educating patien t, discussing with onsite case manager/social workers/dc planners, documenting/other paperwork and evaluating patient/reviewing data Status at Discharge: Cognitive status at discharge: cognitively intact , Behavioral status at discharge: cooperative , Coding Level of Care Code Acute Nitro Worker for [facility] Fwd Diagnoses Drug-induced psychotic disorder F19.950 Complication of substance-induced condition: with delusions Suicidal ideation R45.851 Malingering Z76.5 Antisocial personality disorder F60.2 Depressed bipolar I disorder F31.9
[2020-04-19 10:45] VITALS: BP 121/74; PULSE 68; RESP 16; TEMP 36.8; O2SAT 97
== END 2020-04-19 15:00 | disposition home or self-care (01) | DRG 897 ==
LOC: ER 04:38 → NP 07:47
PROVIDERS: Admitting Provider Psychiatry & Neurology Psychiatry; Emergency Provider Family Medicine; Visit Provider Psychiatry & Neurology Psychiatry
DX: F19.950 Other psychoactive substance use, unspecified with psychoactive substance-induced psychotic disorder with delusions (principal); R45.851 Suicidal ideations; F31.9 Bipolar disorder, unspecified; F15.90 Other stimulant use, unspecified, uncomplicated; F17.210 Nicotine dependence, cigarettes, uncomplicated; F60.2 Antisocial personality disorder; Z76.5 Malingerer [conscious simulation]
CPT/HCPCS: 12345; 80053; 80307; 84443; 85025; 93005; 96372; 99281; J2060

== ENCOUNTER 2021-03-07 19:21 | Inpatient (IN) | payer MEDICARE, MEDICAID, SELFPAY ==
[2021-03-07 19:29] VITALS: BP 125/71; PULSE 97; RESP 18; TEMP 36.7; O2SAT 98
--- NOTE | 2021-03-07 19:35 | CTR_ITS ---
PROCEDURE INFORMATION: Exam: CT Head Without Contrast Exam date and time: 03/07/2021 7:35 PM Age: 50 years old Clinical indication: Headache; Patient HX: Ams/ right side temporal pain radiating to back of head; Additional info: Si/ams TECHNIQUE: Imaging protocol: Computed tomography of the head without contrast. Radiation optimization: All CT scans at this facility use at least one of these dose optimization techniques: automated exposure control; mA and/or kV adjustment per patient size (includes targeted exams where dose is matched to clinical indication); or iterative reconstruction. COMPARISON: No relevant prior studies available. RADIATION DOSE METRICS: Total DLP (mGy-cm): 1071.95 FINDINGS: Brain: Normal. No hemorrhage. Unremarkable white matter. No mass effect. Cerebral ventricles: No ventriculomegaly. Paranasal sinuses: Visualized sinuses are unremarkable. No fluid levels. Mastoid air cells: Visualized mastoid air cells are well aerated. Bones/joints: Unremarkable. No acute fracture. Soft tissues: Unremarkable. CT/CT head wo con* [id number] IMPRESSION: No acute intracranial abnormality.
[2021-03-07 20:29] LABS: Amphetamines Screen Urine Positive (Negative); Barbiturates Screen Urine Negative (Negative); Benzodiazepines Screen Urine Negative (Negative); Cocaine Screen Urine Negative (Negative); Opiate Screen Urine Negative (Negative); PCP Screen Urine Negative (Negative); THC Screen Urine Negative (Negative)
--- NOTE | 2021-03-07 20:42 | W.ED.PSYCHS ---
HPI - Psych General: Chief Complaint: Psychiatric Symptoms Stated Complaint: si Time Seen by Provider: 03/07/21 19:35 Source: patient Mode of arrival: ambulatory Limitations: no limitations History of Present Illness: HPI Narrative: 50-year-old male who is here for suicidal ideation. He states he been having suicidal thoughts over the last 10 days. He states that increased agitation has been hearing voices states that he does want to kill himself and has a plan of jumping in front of a semitruck. He also admits to chronic meth use with meth use recently as well. Denies any worst improving factors. Associated symptoms: Reports auditory hallucinations, depression and suicidal ideation Review of Systems Const: Denies: fever(s), chills, body aches or change in appetite Eyes: Denies: blurry vision or eye discomfort ENMT: Denies: throat pain or dental pain Card: Denies: chest pain Resp: Denies: dyspnea GI: Denies: abdominal pain, nausea, vomiting or diarrhea : Denies: dysuria Musc: Denies: neck pain or back pain Skin/Breast: Denies: rash Neuro: Denies: headache(s) Psych: Reports: depression, auditory hallucinations and suicidal ideation Ish/Lymph: Denies: easy bruising All/Imm: Denies: urticaria PFSH ED PFSH: Social History Smoking and tobacco status: current every day smoker Physical Exam Const: COMMON NORMALS: patient oriented x3 GENERAL APPEARANCE: disheveled HENMT: COMMON NORMALS: normocephalic and atraumatic HEAD & SCALP: normocephalic and atraumatic Eye: COMMON NORMALS: Equal, round and reactive pupils present and EOMs intact bilaterally PUPIL: Yes Equal, round and reactive pupils present Neck/C-Spine: COMMON NORMALS: full ROM and supple Chest: COMMONS NORMALS: normal inspection of the chest and normal palpation of entire chest wall Resp: COMMON NORMALS: normal respiratory effort, No retractions, No use of accessory muscles and clear to auscultation bilaterally AUSCULTATION: clear to auscultation bilaterally Cardio: COMMON NORMALS: regular rate, regular rhythm and No murmurs present (Cardio) RATE: regular rate RHYTHM: regular rhythm GI: COMMON NORMALS: Normal to inspection, nondistended, normoactive bowel sounds present, Soft to palpation, non-tender and no masses PALPATION: Yes Soft to palpation Extremity: COMMON NORMALS: normal to inspection and full ROM Neuro: COMMON NORMALS: patient oriented x3, moves all extremities and no focal motor deficits Psych: COMMON NORMALS: mental status grossly normal and cooperative THOUGHT PROCESS: disorganized THOUGHT CONTENT: Yes Suicidality present and Yes Hallucination(s) present Skin: COMMON NORMALS: no rashes or lesions noted and no wounds GENERAL SKIN EXAM: no rashes or lesions noted Course Vital Signs: Vital signs: Vital Signs Temperature 98.0 F 03/07/21 19:29 Pulse Rate 97 03/07/21 19:29 Respiratory Rate 18 03/07/21 19:29 Blood Pressure 125/71 03/07/21 19: Pulse Oximetry 98 03/07/21 19:29 MDM - Psych MDM Narrative: Medical decision making narrative: Patient presents here with suicidal ideations along with some meth induced psychosis. Patient medically cleared head CT here is normal he stable for admission to the psych unit I spoke to Dr. Bond who is excepting. Lab Data: Labs: Lab Results 03/07/21 03/07/21 03/07/21 20:05 21:02 21:02 WBC 10.8 10^3/uL H 10 ^3/uL (4.0-10.0) RBC 4.10 10^6/uL 10^6 /uL (4.1-5.3) Hgb 13.3 g/dL g/dL (11.7-16.6) Hct 38.4 % L % (42.0-52.0) MCV 93.7 fl fl (80-94) MCH 32.4 pg pg (28.0-34.0) MCHC 34.6 g/dL g/dL (30.0-36.0) RDW 12.9 % % (12.1-15.1) Plt Count 240 10^3/cmm 10^3 /cmm (130-400) MPV 10.1 fL fL (7.4-10.4) Neut % (Auto) 59.3 % % Lymph % (Auto) 21.0 % % [place] % (Auto) 15.4 % % Eos % (Auto) 3.1 % % Baso % (Auto) 0.9 % % Neut # (Auto) 6.42 10^3/uL 10^3 /uL (1.8-7.7) Lymph # (Auto) 2.3 10^3/uL 10^3/ uL (0.8-4.8) [place] # (Auto) 1.7 10^3/uL H 10^ 3/uL (0.2-0.9) Eos # (Auto) 0.3 10^3/uL 10^3/ uL (0.0-0.8) Baso # (Auto) 0.1 10^3/uL 10^3/ uL (0.0-0.1) Nucleated RBC % (a uto) 0 % % Nucleated RBCs # 0.0 /100WBC /100W BC Sodium 141 mmol/L mmol/L (136-145) Potassium 3.5 mmol/L mmol/L (3.5-5.1) Chloride 102 mmol/L mmol/L (98-107) Carbon Dioxide 27 mmol/L mmol/L (22-29) Anion Gap 15.5 (5-19) BUN 22 mg/dL H mg/dL (6-20) Creatinine 0.8 mg/dL mg/dL (0.7-1.2) GFR Calculation 101.9 mL/min mL/m in (90-130) Glucose 102 mg/dL mg/dL (65-115) Calculated Osmolal ity 296 mOsm/kg H mOs m/kg (285-295) Calcium 8.2 mg/dL L mg/dL (8.5-10.5) Total Bilirubin 1.4 mg/dL H mg/dL (0.15-1.2) AST 30 U/L U/L (0-40) ALT 24 U/L U/L (0-41) Alkaline Phosphata se 87 IU/L IU/L (40-130) Total Protein 6.8 g/dL g/dL (6.6-8.7) Albumin 4.3 g/dL g/dL (3.5-5.2) Globulin 2.5 g/dL g/dL (1.3-4.6) Salicylates < 0.3 mg/dL L mg/ dL (3-10) Urine Opiates Scre en Negative ng/mL ng /mL (Negative) Acetaminophen < 5.0 ug/mL L ug/ mL (10-30) Ur Barbiturates Sc reen Negative ng/mL ng /mL (Negative) Ur Phencyclidine S crn Negative ng/mL ng /mL (Negative) Ur Amphetamines Sc reen Positive ng/mL H ng/mL (Negative) U Benzodiazepines Scrn Negative ng/mL ng /mL (Negative) Urine Cocaine Scre en Negative ng/mL ng /mL (Negative) U Marijuana (THC) Screen Negative ng/mL ng /mL (Negative) Ethyl Alcohol < 10 mg/dL mg/dL (0-10) Discharge Plan Discharge Patient Disposition: Admitted As Inpatient Clinical Impression: Suicidal ideation, Drug-induced psychotic disorder Condition: Stable Coding Level of Care Code 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
[2021-03-07 21:11] LABS: Basophils # 0.1 10^3/uL (0.0-0.1); Basophils % 0.9 %; Eosinophils # 0.3 10^3/uL (0.0-0.8); Eosinophils % 3.1 %; Hematocrit 38.4 % (42.0-52.0); Hemoglobin 13.3 g/dL (11.7-16.6); Lymphocytes # 2.3 10^3/uL (0.8-4.8); Mean Corpuscular HGB Conc 34.6 g/dL (30.0-36.0); Mean Corpuscular Hemoglobin 32.4 pg (28.0-34.0); Mean Corpuscular Volume 93.7 fl (80-94); Mean Platelet Volume 10.1 fL (7.4-10.4); Monocytes # 1.7 10^3/uL (0.2-0.9); Monocytes % 15.4 %; Neutrophils # 6.42 10^3/uL (1.8-7.7); Neutrophils % 59.3 %; Nucleated Red Blood Cells % 0 %; Platelet Count 240 10^3/cmm (130-400); Red Cell Distribution Width 12.9 % (12.1-15.1); White Blood Count 10.8 10^3/uL (4.0-10.0)
[2021-03-07 21:27] LABS: Alanine Aminotransferase 24 U/L (0-41); Albumin Level 4.3 g/dL (3.5-5.2); Alkaline Phosphatase 87 IU/L (40-130); Aspartate Amino Transferase 30 U/L (0-40); Blood Urea Nitrogen 22 mg/dL (6-20); Calcium 8.2 mg/dL (8.5-10.5); Carbon Dioxide 27 mmol/L (22-29); Chloride 102 mmol/L (98-107); Globulin 2.5 g/dL (1.3-4.6); Glomerular Filtration Rate 101.9 mL/min (90-130); Glucose 102 mg/dL (65-115); Osmolality Calculated 296 mOsm/kg (285-295); Sodium 141 mmol/L (136-145); Total Bilirubin 1.4 mg/dL (0.15-1.2); Total Protein 6.8 g/dL (6.6-8.7)
[2021-03-07 21:30] LABS: Acetaminophen < 5.0 ug/mL (10-30); Alcohol Level < 10 mg/dL (0-10); Salicylate < 0.3 mg/dL (3-10)
[2021-03-07 21:31] LABS: Anion Gap 15.5 (5-19); Potassium 3.5 mmol/L (3.5-5.1)
[2021-03-07 23:24] VITALS: BP 125/71; PULSE 97; RESP 18; TEMP 36.7; O2SAT 98
[2021-03-07 23:50] VITALS: BP 98/57; PULSE 84; RESP 17; TEMP 36.6; O2SAT 97
[2021-03-08] MEDS: hyDROXYzine 25 mg Capsule 50 MG PO (00:39)
[2021-03-08] MEDS: trazodone 50 mg Tablet PO ×2 (00:40→20:19)
--- NOTE | 2021-03-08 00:40 | PC.NURSE ---
Trazadone 50 mg po and hydroxizine 50 mg po given for c/o insomnia.
[2021-03-08 06:00] VITALS: RESP 15
[2021-03-08] MEDS: divalproex DR 500 mg Tablet PO ×2 (09:16→19:09)
[2021-03-08] MEDS: CLONazepam 0.5 mg Tablet PO ×3 (09:16→20:19)
[2021-03-08] MEDS: venlafaxine ER (24HR) 150 mg Capsule PO (09:16)
[2021-03-08 14:00] VITALS: RESP 16
--- NOTE | 2021-03-08 15:34 | P.NPUHP_ITS ---
Providers/Chief Complaint Admitting Physician: Tom Bee MD Chief Complaint: si HPI NPU History of Present Illness Emil Castro is a 50 year old male who presented to the emergency department with the following report: Chief Complaint: Psychiatric Symptoms Stated Complaint: si Time Seen by Provider: 03/07/21 19:35 Source: patient Mode of arrival: ambulatory Limitations: no limitations History of Present Illness: HPI Narrative: 50-year-old male who is here for suicidal ideation. He states he been having suicidal thoughts over the last 10 days. He states that increased agitation has been hearing voices states that he does want to kill himself and has a plan of jumping in front of a semitruck. He also admits to chronic meth use with meth use recently as well. Denies any worst improving factors. Associated symptoms: Reports auditory hallucinations, depression and suicidal ideation. He was made to the neuropsychiatric unit for the treatment of those issues. Is well-known to this unit secondary to multiple things hospitalizations. He presents today much like his previous hospitalizations is a fairly resistant historian. Today it seems more likely that is secondary to withdrawal from methamphetamine causing him to have some confusion, increased somnolence and some irritability. His answers to questions are generalities not specifics but at this point it seems more a product of his intoxication/withdrawal that it does volitional behavior. He gave some report of being in [place] since his discharge in April of this year then returning here recently but he had no reasons for why he went to [place], what he was doing there, why he returned here, what his recovery has been like. He can give no helpful information about when he last took medication, what he was taking for sure, but he reports taking Seroquel and Klonopin. Of course we discussed Klonopin not being a great idea overall for someone with such significant addiction. He did not give any real information about where he has been living, how he has been providing for himself, any other drug and alcohol or mental health services being utilized the last 10 months. We agreed we would investigate some of this information and hopefully determine what he has been doing and how we can help. An excerpt from his 04/30/2020 discharge summary is included below for context. Per his 04/19/2020 [facility] inpatient psychiatric discharge summary: Discharge Diagnosis (1) Drug-induced psychotic disorder: Status: Acute Qualifiers: Complication of substance-induced condition: with delusions Qualified Code(s): F19.950 - Other psychoactive substance use, unspecified with psychoactive substance-induced psychotic disorder with delusions (2) Suicidal ideation: Status: Resolved (3) Malingering: Status: Acute (4) Antisocial personality disorder: Status: Chronic (5) Depressed bipolar I disorder: Status: Resolved Permanent problem details: Patient does not name and get his prescriptions filled when discharged. I am discontinuing all his meds and referring him to outpatient follow-up. Reason for Visit Reason for Visit: SI Brief History: History of Present Illness Emil Castro is a 49 year old male who presented to the emergency department with the following report: Chief Complaint: Psychiatric Symptoms Stated Complaint: SI Time Seen by Provider: 04/18/20 02:58 Source: patient and police Mode of arrival: other (Police vehicle) Limitations: altered mental status History of Present Illness: HPI Narrative: 49-year-old male states that he used crystal meth 3 days ago, and since then has felt depressed, anxious, and suicidal. reports that he feels this way every time he does drugs . Threatens to do anyt trang he can to kill himself including taking pills, stabbing himself. He was threatening to jump off a steep embankment police arrived. MD complaint: suicidal ideation and feels depressed History of same: Yes Exacerbating factors: drug use Context: recent drug abuse Associated psychiatric symptoms: suicidal ideation, racing thoughts and delusions Associated symptoms: Reports delusions and suicidal ideation If self harm: admits thoughts of self harm. He was admitted to the neuropsychiatric unit for definitive treatment of those issues. Emil is quite well known to the inpatient unit and had not been admitted here for some time secondary to the fact that his primary presentation is malingering. He has not been admitted by this publicity writer since July 2019 for this very reason. He has been in over utilizer services and his presentation and what he says during his presentation generally has little to do with the circumstances surrounding the admission. He presents today as a extremely res istant historian having just finished dinner where he was fully coherent and able to request an additional milk from this publicity writer, now while in his room the best he can generate are monosyllabic grunts for the most part. He does occasionally say words but now he is just so in a place that answers us gave him and what ever we say will be sufficient. He reports that he had been off of his medication for some time, fully relapse and not using drugs and endorsed that his housing with his significant other in [place] ended with that relationship because she could not handle all of the drug use and he really had no information for me regarding any interim history since he was last seen by this publicity writer. He more or less gave carb wants to start not on medication that this publicity writer sees fit. We did discuss the fact that we connected with a long term that he had been in and they identify they would take him back as soon as tomorrow and he said okay but is unclear what that even means. We briefly reviewed his last hospitalization with this publicity writer, at least the evaluation and an excerpt is included below for context. Per his 07/31/2019 [facility] inpatient psychiatric eval: History of Present Illness Emil Castro is a 49 year old male who presents today reporting that he is struggling but seemed open to be discharged tomorrow if the issue was pushed. We had a discussion about our last encounter which is included below. We discussed concerns about his authenticity and truthfulness and reporting. He continues to report that he had been in [place], had not been in the hospital since this previous encounter, had not been on his medication since the previous encounter, and he has not been using methamphetamine. We agreed that it is our desire to assist him in anything that would be called progress in his recovery. We set a goal for discharge on Friday allowing the treatment team to be fully assembled to assist in possible community resources. We discussed the risks benefits and alternatives of restarting his medications at the previous dosing just prior to that last hospitalization, and he understood and agreed to proceed as is documented in this note. Psychiatric history: It is likely that between hospitalizations and rehab stays that Emil has at ast 50-75 encounters and that might be low balling it. He has been on multiple medications but his adherence is highly questionable. Substance abuse history: He smokes cigarettes, drinks alcohol regularly and has smoked weed off and on. He has had significant difficulties with methamphetamine and at different times accordingly on a struggle with basically everything. He has had significant re hab stents sometimes going to rehabs to 3 times in a year. Currently his UDS was negative for all drugs of abuse. He denies any substantive changes in his psychosocial history with some elements of that reported below in the most recent evaluation. Per his last [facility] eval: History of Present Illness Date of Service: Feb 19, 2019 Reason for Consultation: Presentation to the emergency room after discharge seeking readmission Consulting Service and Doctor: Sam Bond M.D. Psychiatry. HPI: Emil presents to the emergency room requesting to be admitted to the hospital where he was just discharged. He has had 11 inpatient hospitalizations at [facility] this calendar year, 20+ emergency room visits at [facility] this calendar year, 6 inpatient rehabilitation treatments this calendar year, myriad of other hospitalizations at other facilities, so she'll stays, and multiple investments in transportation to get him all over the state just this year alone. Many of his stays at these facilities are 1 right behind another. This behavior was seen by him in [facility] as well as here. Times where he is in the hospital for 7-10 days, followed by inpatient rehabilitation for 21-30 days followed by an emergency room visit a day or 2 later back to hospitalization. There is limited indication of any effectiveness of any of this treatment at this point. There've been a few episodes of psychosis secondary to the methamphetamine. But in general it simply him reporting that he is suicidal, that he is depressed and that he wants to stop using. He presents to the hospitalizations positive for methamphetamine generally has a few days of withdrawal, become more active and requesting to be sent to some facility and not be discharged prior to that point. We have discussed at length our belief that the only chance he has to make a change is to be in a long-term program or unfortunately be locked up by the police for an extended period of time to try to get him enough sobriety to maybe have a clear enough mind to make some changes. Unfortunately the diagnosis of malingering in conjunction with his antisocial personality disorder make for a tough combination and make evaluation difficult given that he is really says when he has come to understand we'll work to get him admitted. Allergies: Coded Allergies: AMOXICILLIN (Verified Allergy, Unknown, UNABLE TO BREATH AND THROAT SWELLS, 04/18/18) PENICILLINS (Verified Allergy, Unknown, 04/18/18) Home Meds: Home Medications: Active Seroquel Tab (Quetiapine Fumarate) 100 Mg Tablet 300 Mg PO BEDTIME 30 Days Seroquel Tab (Quetiapine Fumarate) 50 Mg Tablet 50 Mg PO BID 30 Days Prozac Cap (Fluoxetine HCl) 20 Mg Tablet 20 Mg PO DAILY 30 Days Past Medical History Other Family Medical History: Unchanged from the recent hospitalization. Other Past Social History: Unchanged from the recent hospitalization. Physical Exam Physical Exam: This is a obese white male with adequate rest, grooming and eye contact. No abnormal movements except for psychomotor retardation. Semicooperative with exam. In mild distress. Speech was decreased rate and volume with a little slurring of his voice. Mood described as depressed, affect lethargic. Thought process organized. Thought content: Patient endorsed suicidal ideation but den ied homicidal ideation, there were no delusions reported are noted, he denied any auditory or visual hallucinations. Attention and concentration were intact and memory was unreliable but none were formally tested. He is alert and oriented ?3. Insight and judgment are impaired. Assessment/Problem List Assessment/Problem List Other Assessment/Problem List: Malingering, antisocial personality disorder methamphetamine use disorder severe, rule out methamphetamine-induced mood disorder, depressive disorder unspecified, insomnia Plan This is a 48-year-old white male well known to this publicity writer from hospitalization in [facility] as well as here at [facility] who presents as hours after he was discharged by this publicity writer from the neuropsych unit after being on a 96 hour hold. He is concluding this year having had double digit admissions, reportedly almost twice as many ER visits, at least 6 inpatient rehabs and multiple stays at other psychiatric facilities. He has significant addiction issues which has led to significant psychosocial dysfunction, homelessness, and episodes of mood dysregulation and psychosis. He presents as he has many times with clear desire to have somewhere to go when he has nowhere to go. 1Estrellita Stein is not without risk for poor outcomes given his high impulsivity with the antisocial personality disorder, high impulsivity with addiction and feeling like his options are running out. However he has no significant history of acts of furtherance with his suicidal thoughts. He has mostly had suicidal threats which have been answered by admissions. The outcome of our response as the treatment community is that he has been in institutional settings 4 more days than not this year. And even with that, we find ourselves with him presenting for his third attempt at hospitalization here in the last 2 weeks. Given his profile, he has some risk for lethality/self-harm but that same risk exists every time we discharge him throughout the year. As he and I discussed during this recent hospitalization, we're are at a point where it feels like we the system are a part of the problem. 2. The assessment is that he has malingering. He generally talks of big game from the standpoint of saying that he has plenty of places to go he's just d epressed. But in conversations about his son's he reports he can go there but he never does. 3. At this point just in this calendar year we have spent four figures getting counseling locations only to have home not stay or return as soon as that treatment regimen is completed. 4. At this point we cannot admit him every time he presents saying he's thinking bad things or something like that. We must encourage him to utilize community resources like the ones we gave him but he did not call while he was admitted. His expectation on the unit is for everyone to work to find him a place to go but he is not participating in the work to find him a place to go. Then becomes time for discharge and he reports that he is not ready. He was even offered the opportunity to spin the morning calling some of the resources he was given and he refused and reported he would just go stay at a friend's house. 5. He was given the number to resources, the [facility], some of the [facility] resources in the community given his lack of insurance. It would be appropriate for him to continue to seek those out. 6. Staff/evaluated should be prepared for him to possibly be aggressive as he has become quite frustrated with him not being admitted because he said he was suicidal. 7. However the overall recommendation is for him to discharge not be readmitted to the NPU Medical Necessity Statement: Inpatient hospitalization is not medically necessary. In fact this point given the issue with malingering and him not making significant changes in his life, admitting him is becoming part of the problem and preventing him from having to face circumstances that he is creating with his choices. Hospital Course Hospital Course Emil presented to the emergency department with active addiction, irritability endorsing depression and suicidality without a place to stay, so he was admitted to the Neuropsychiatric unit for definitive treatment of those issues. Consistent with his history they were considerable concerns for malingering. He was resistant to treatment during the visit, but we were able to find him a bed at a long term and he was able to contract for safety prior to discharge. No medications were initiated.During the hospitalization, patient had routine laboratory studies which were within normal limits except for few outliers. Additionally there was a general medical evaluation which was also within normal limits and revealed no new acute processes. Discharge Summary: At the time of discharge, he was absent lethality or psychosis. Mood and anxiety were well managed. Patient endorsed a plan to avoid all drugs of abuse and follow-up with the aftercare recommendations of the treatment team. Patient was evaluated and deemed to be absent credible lethality, and had achieved the m aximum benefit from an inpatient hospitalization, so was discharged. Meds NPU Home Medications Medication Instructions Recorded Confirmed Last Taken Type clonazepam 0.5 mg PO TID 03/08/21 03/08/21 Unknown History divalproex 500 mg PO BID 03/08/21 03/08/21 Unknown History quetiapine 200 mg PO BEDTIME 03/08/21 03/08/21 Unknown History quetiapine [Seroquel] 300 mg PO BEDTIME 03/08/21 03/08/21 Unknown History venlafaxine 150,150 mg PO DAILY 03/08/21 03/08/21 Unknown History Allergies Allergy/AdvReac Type Severity Reaction Status Date / Time Penicillins Allergy ALGY-Hives Verified 08/21/19 14:59 PFSH NPU PFSH: Social History Smoking and tobacco status: current every day smoker Mental Status Exam MSE Comments: This is an overweight versus obese white male in hospital scrubs with limited grooming and eye contact. No abnormal movements except for significant psychomotor retardation. Semicooperative with exam in mild distress. Speech was limited and increased rate and decreased volume. Mood de scribed as suicidal, affect slightly irritable. Thought process mostly organized. Thought content: Patient endorsed suicidal ideation and reported a conflict he was having homicidal ideation, there were no delusions reported or noted, he endorsed but denied visual hallucinations. Attention and co ncentration were limited and memory was unreliable but none were formally tested. He is alert and oriented x3. Insight and judgment are impaired, impulse control is impaired. Vitals/I&O/Wt Last Vital Signs Temp 97.8 F 03/07/21 23:50 Pulse 84 03/07/21 23:50 Resp 16 03/08/21 14:00 BP 98/57 03/07/21 23:50 Pulse Ox 97 03/07/21 23:50 Weight last 48 hrs Weight 100.607 kg Data NPU : 03/07/21 21:02 03/07/21 21:02 A&P Assessment and plan (1) Suicidal ideation: Status: Acute (2) Drug-induced psychotic disorder: Status: Acute (3) Malingering: Status: Acute (4) Antisocial personality disorder: Status: Chronic (5) Depressed bipolar I disorder: Status: Resolved Additional A&P Information (1) Depressed bipolar I disorder: (2) Antisocial personality disorder: (3) Malingering: This is a 50-year-old white male with a long history of mental health issues as well as addiction issues who presents endorsing suicidal thoughts, off of his medication open to restarting his medication with clear active intoxication wit hdrawal. 1. Continue current medication. Explore recent medication usage and determine whether receiving medication would be beneficial. 2. Continue to 15-minute checks for safety. 3. Encouraged individual, group and milieu therapy. 4. We will work with the treatment team to explore what resources exist for him for some sort of sober living environment at the highest level of care to which he is willing to commit. 5. Given his history of malingering we should identify resources and discharged quickly. Involuntary Hold Information 96 Hour Hold: 96 Hour Involuntary Admission: Yes 96 Hour Hold Ending Date: 03/13/21 96 Hour Hold Ending Time: 22:29 Attestations NPU Medical Necessity Statement*: Inpatient hospitalization is medically necessary and the clinically appropriate intervention at this time. We will monitor medications and make changes as indicated. Patient will be in the hospital for over two midnights. Likely length of stay 3-5 days. 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
[2021-03-08 20:13] VITALS: BP 101/67; PULSE 78; RESP 18; O2SAT 98
[2021-03-08] MEDS: quetiapine 100 mg Tablet 200 MG PO (20:19)
[2021-03-08] MEDS: quetiapine 300 mg Tablet PO (20:19)
--- NOTE | 2021-03-08 20:19 | PC.NURSE ---
Trazadone 50 mg po given for sleep aide.
[2021-03-09 06:00] VITALS: BP 130/81; PULSE 74; RESP 16; O2SAT 98
[2021-03-09] MEDS: CLONazepam 0.5 mg Tablet PO ×3 (08:33→21:07)
[2021-03-09] MEDS: venlafaxine ER (24HR) 150 mg Capsule PO (08:33)
[2021-03-09] MEDS: divalproex DR 500 mg Tablet PO ×2 (08:33→18:29)
--- NOTE | 2021-03-09 11:47 | P.NPUPN_ITS ---
Subjective NPU Subjective: Interval history: Patient presents today with less irritability than yesterday but also stating ambivalent about treatment. He reported that he had an apartment in [place] to return to and a roommate. He reported that he has been using but he had no intention or plan for a long-term rehab and reported that he would be ready to discharge whenever he was given the opportunity. We discussed his reports of suicidality and needing to monitor him further on a 96-hour hold. Mental Status Exam MSE Comments: This is an overweight versus obese white male in hospital scrubs with limited grooming and eye contact. No abnormal movements except for resolving psychomotor retardation. A little more cooperative with exam in mild distress. Speech was more spontaneous and more normal rate and volume. Mood described as better, affect less irritable. Thought process mostly organized. Thought content: Patient denied suicidal or homicidal ideation, there were no delusions reported or noted, he denied auditory or visual hallucinations. Attention and concentration were improving and memory was unreliable but none were formally tested. He is alert and oriented x3. Insight and judgment are impaired, impulse control is impaired. Vitals/I&O/Wt Last Vital Signs Temp 97.8 F 03/07/21 23:50 Pulse 74 03/09/21 06:00 Resp 16 03/09/21 06:00 BP 130/81 03/09/21 06:00 Pulse Ox 98 03/09/21 06:00 Weight last 48 hrs Weight 100.607 kg Data NPU : 03/07/21 21:02 03/07/21 21:02 A&P Additional A&P Information (1) Suicidal ideation: (2) Drug-induced psychotic disorder: (3) Malingering: (4) Antisocial personality disorder: (5) Depressed bipolar I disorder: Additional A&P Information (1) Depressed bipolar I disorder: (2) Antisocial personality disorder: (3) Malingering: This is a 50-year-old white male with a long history of mental health issues as well as addiction issues who presents endorsing suicidal thoughts, off of his me dication open to restarting his medication with clear active intoxication withdrawal. 1. Continue current medication. Explore recent medication usage and determine whether receiving medication would be beneficial. 2. Continue to 15-minute checks for safety. 3. Encouraged individual, group and milieu therapy. 4. We will work with the treatment team to explore what resources exist for him for some sort of sober living environment at the highest level of care to which he is willing to commit. 5. Given his history of malingering we should identify resources and discharged quickly. Involuntary Hold Information 96 Hour Hold: 96 Hour Involuntary Admission: Yes 96 Hour Hold Ending Date: 03/13/21 96 Hour Hold Ending Time: 22:29 Attestations NPU Medical Necessity Statement*: Inpatient hospitalization is medically necessary and the clinically appropriate intervention at this time. We will monitor medications and make changes as indicated. Likely length of stay 1-3 days. 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
[2021-03-09 14:00] VITALS: BP 119/77; PULSE 82; RESP 18; TEMP 36.6; O2SAT 99
[2021-03-09 19:42] VITALS: BP 111/60; PULSE 88; RESP 20; TEMP 36.9; O2SAT 94
[2021-03-09] MEDS: ziprasidone hcl 40 mg Capsule PO (21:07)
[2021-03-09] MEDS: quetiapine 100 mg Tablet 200 MG PO (21:07)
[2021-03-09] MEDS: quetiapine 300 mg Tablet PO (21:08)
[2021-03-10 06:32] VITALS: BP 107/74; PULSE 93; RESP 16; TEMP 36.6; O2SAT 98
[2021-03-10] MEDS: divalproex DR 500 mg Tablet PO ×2 (09:04→18:14)
[2021-03-10] MEDS: CLONazepam 0.5 mg Tablet PO ×3 (09:04→20:21)
[2021-03-10] MEDS: venlafaxine ER (24HR) 150 mg Capsule PO (09:04)
[2021-03-10 14:00] VITALS: RESP 18
--- NOTE | 2021-03-10 18:29 | P.NPUPN_ITS ---
Subjective NPU Subjective: Interval history: Patient presents today continuing to show gradual improvement from the intoxicated/withdrawal state that he presented with. He reports that he actually has an apartment the days and has a roommate that he will be returning to. He reports that he is engaged in treatment and does not feel that he needs any additional intervention to get a hold of himself on this angel. We discussed the possibility of discharge the next 48 hours. Mental Status Exam MSE Comments: This is an overweight versus obese white male in hospital scrubs with limited grooming and eye contact. No abnormal movements except for resolving psychomotor retardation. Cooperative with exam in mild distress. Speech was more spontaneous and more normal rate and volume. Mood described as better, affect less irritable. Thought process mostly organized. Thought content: Patient denied suicidal or homicidal ideation, there were no delusions reported or noted, he denied auditory or visual hallucinations. Attention and concentration were improving and memory was unreliable but none were formally tested. He is alert and oriented x3. Insight and judgment are improving, impulse control is limited. Vitals/I&O/Wt Last Vital Signs Temp 98.0 F 03/10/21 21:15 Pulse 80 03/10/21 21:15 Resp 15 03/10/21 21:15 BP 124/79 03/10/21 21:15 Pulse Ox 97 03/10/21 21:15 Data NPU : 03/07/21 21:02 03/07/21 21:02 A&P Additional A&P Information (1) Suicidal ideation: (2) Drug-induced psychotic disorder: (3) Malingering: (4) Antisocial personality disorder: (5) Depressed bipolar I disorder: Additional A&P Information (1) Depressed bipolar I disorder: (2) Antisocial personality disorder: (3) Malingering: This is a 50-year-old white male with a long history of mental health issues as well as addiction issues who presents endorsing suicidal thoughts, off of his medication open to restarting his medication with clear active intoxication withdrawal. 1. Continue current medication. Previous medications were restarted. 2. Continue to 15-minute checks for safety. 3. Encouraged individual, group and milieu therapy. 4. We will work with the treatment team to explore what resources exist for him for some sort of sober living environment at the highest level of care to which he is willing to commit. 5. Given his history of malingering we should identify resources and discharged quickly. He is endorsing a desire to discharge and showing no signs of suicidal or homicidal behavior or ideations. Given his history we will likely discharge in the morning. Involuntary Hold Information 96 Hour Hold: 96 Hour Involuntary Admission: Yes 96 Hour Hold Ending Date: 03/13/21 96 Hour Hold Ending Time: 22:29 Attestations NPU Medical Necessity Statement*: Inpatient hospitalization is medically necessary and the clinically appropriate intervention at this time. We will monitor medications and make changes as indicated. Likely length of stay 1-2 days. 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
[2021-03-10] MEDS: hyDROXYzine 25 mg Capsule 50 MG PO (20:21)
[2021-03-10] MEDS: trazodone 50 mg Tablet PO (20:21)
[2021-03-10] MEDS: quetiapine 100 mg Tablet 200 MG PO (20:21)
[2021-03-10] MEDS: quetiapine 300 mg Tablet PO (20:21)
[2021-03-10 21:15] VITALS: BP 124/79; PULSE 80; RESP 15; TEMP 36.7; O2SAT 97
[2021-03-11 06:00] VITALS: BP 117/73; PULSE 74; RESP 16; TEMP 36.3; O2SAT 98
[2021-03-11] MEDS: divalproex DR 500 mg Tablet PO (08:15)
[2021-03-11] MEDS: venlafaxine ER (24HR) 150 mg Capsule PO (08:15)
[2021-03-11] MEDS: CLONazepam 0.5 mg Tablet PO (08:15)
--- NOTE | 2021-03-11 11:28 | W.PM.NPUDCS ---
Diagnoses at Discharge Discharge Diagnosis (1) Suicidal ideation: Status: Resolved (2) Drug-induced psychotic disorder: Status: Acute (3) Malingering: Status: Acute (4) Antisocial personality disorder: Status: Chronic (5) Depressed bipolar I disorder: Status: Resolved Permanent problem details: Patient does not name and get his prescriptions filled when discharged. I am discontinuing all his meds and referring him to outpatient follow-up. Reason for Visit Reason for Visit: si Brief History: History of Present Illness Emil Castro is a 50 year old male who presented to the emergency department with the following report: Chief Complaint: Psychiatric Symptoms Stated Complaint: si Time Seen by Provider: 03/07/21 19:35 Source: patient Mode of arrival: ambulatory Limitations: no limitations History of Present Illness: HPI Narrative: 50-year-old male who is here for suicidal ideation. He states he been having suicidal thoughts over the last 10 days. He states that increased agitation has been hearing voices states that he does want to kill himself and has a plan of jumping in front of a semitruck. He also admits to chronic meth use with meth use recently as well. Denies any worst improving factors. Associated symptoms: Reports auditory hallucinations, depression and suicidal ideation. He was made to the neuropsychiatric unit for the treatment of those issues. Is well-known to this unit secondary to multiple things hospitalizations. He presents today much like his previous hospitalizations is a fairly resistant historian. Today it seems more likely that is secondary to withdrawal from methamphetamine causing him to have some confusion, increased somnolence and some irritability. His answers to questions are generalities not specifics but at this point it seems more a product of his intoxication/withdrawal that it does volitional behavior. He gave some report of being in [place] since his discharge in April of this year then returning here recently but he had no reasons for why he went to [place], what he was doing there, why he returned here, what his recovery has been like. He can give no helpful information about when he last took medication, what he was taking for sure, but he reports taking Seroquel and Klonopin. Of course we discussed Klonopin not being a great idea overall for someone with such significant addiction. He did not give any real information about where he has been living, how he has been providing for himself, any other drug and alcohol or mental health services being utilized the last 10 months. We agreed we would investigate some of this information and hopefully determine what he has been doing and how we can help. An excerpt from his 04/30/2020 discharge summary is included below for context. Per his 04/19/2020 [facility] inpatient psychiatric discharge summary: Discharge Diagnosis (1) Drug-induced psychotic disorder: Status: Acute Qualifiers: Complication of substance-induced condition: with delusions Qualified Code(s): F19.950 - Other psychoactive substance use, unspecified with psychoactive substance-induced psychotic disorder with delusions (2) Suicidal ideation: Status: Resolved (3) Malingering: Status: Acute (4) Antisocial personality disorder: Status: Chronic (5) Depressed bipolar I disorder: Status: Resolved Permanent problem details: Patient does not name and get his prescriptions filled when discharged. I am discontinuing all his meds and referring him to outpatient follow-up. Reason for Visit Reason for Visit: SI Brief History: History of Present Illness Emil Castro is a 49 year old male who presented to the emergency department with the following report: Chief Complaint: Psychiatric Symptoms Stated Complaint: SI Time Seen by Provider: 04/18/20 02:58 Source: patient and police Mode of arrival: other (Police vehicle) Limitations: altered mental status History of Present Illness: HPI Narrative: 49-year-old male states that he used crystal meth 3 days ago, and since then has felt depressed, anxious, and suicidal. reports that he feels this way every time he does drugs . Threatens to do anything he can to kill himself including taking pills, stabbing himself. He was threatening to jump off a steep embankment police arrived. MD complaint: suicidal ideation and feels depressed History of same: Yes Exacerbating factors: drug use Context: recent drug abuse Associated psychiatric symptoms: suicidal ideation, racing thoughts and delusions Associated symptoms: Reports delusions and suicidal ideation If self harm: admits thoughts of self harm. He was admitted to the neuropsychiatric unit for definitive treatment of those issues. Emil is quite well known to the inpatient unit and had not been admitted here for some time secondary to the fact that his primary presentation is malingering. He has not been admitted by this short story writer since July 2019 for this very reason. He has been in over utilizer services and his presentation and what he says during his presentation generally has little to do with the circumstances surrounding the admission. He presents today as a extremely resistant historian having just finished dinner where he was fully coherent and able to request an additional milk from this short story writer, now while in his room the best he can generate are monosyllabic grunts for the most part. He does occasionally say words but now he is just so in a place that answers us gave him and what ever we say will be sufficient. He reports that he had been off of his medication for some time, fully relapse and not using drugs and endorsed that his housing with his significant other in [place] ended with that relationship because she could not handle all of the drug use and he really had no information for me regarding any interim history since he was last seen by this short story writer. He more or less gave carb wants to start not on medication that this short story writer sees fit. We did discuss the fact that we connected with a senior living that he had been in and they identify they would take him back as soon as tomorrow and he said okay but is unclear what that even means. We briefly reviewed his last hospitalization with this short story writer, at least the evaluation and an excerpt is included below for context. Per his 07/31/2019 [facility] inpatient psychiatric eval: History of Present Illness Emil Castro is a 49 year old male who presents today reporting that he is struggling but seemed open to be discharged tomorrow if the issue was pushed. We had a discussion about our last encounter which is included below. We discussed concerns about his authenticity and truthfulness and reporting. He continues to report that he had been in [place], had not been in the hospital since this previous encounter, had not been on his medication since the previous encounter, and he has not been using methamphetamine. We agreed that it is our desire to assist him in anything that would be called progress in his recovery. We set a goal for discharge on Friday allowing the treatment team to be fully assembled to assist in possible community resources. We discussed the risks benefits and alternatives of restarting his medications at the previous dosing just prior to that last hospitalization, and he understood and agreed to proceed as is documented in this note. Psychiatric history: It is likely that between hospitalizations and rehab stays that Emil has at least 50-75 encounters and that might be low balling it. He has been on multiple medications but his adherence is highly questionable. Substance abuse history: He smokes cigarettes, drinks alcohol regularly and has smoked weed off and on. He has had significant difficulties with methamphetamine and at different times accordingly on a struggle with basically everything. He has had significant rehab stents sometimes going to rehabs to 3 times in a year. Currently his UDS was negative for all drugs of abuse. He denies any substantive changes in his psychosocial history with some elements of that reported below in the most recent evaluation. Per his last [facility] eval: History of Present Illness Date of Service: Feb 19, 2019 Reason for Consultation: Presentation to the emergency room after discharge seeking readmission Consulting Service and Doctor: Sam Bond M.D. Psychiatry. HPI: Emil presents to the emergency room requesting to be admitted to the hospital where he was just discharged. He has had 11 inpatient hospitalizations at [facility] this calendar year, 20+ emergency room visits at [facility] this calendar year, 6 inpatient rehabilitation treatments this calendar year, myriad of other hospitalizations at other facilities, so she'll stays, and multiple investments in transportation to get him all over the state just this year alone. Many of his stays at these facilities are 1 right behind another. This behavior was seen by him in [facility] as well as here. Times where he is in the hospital for 7-10 days, followed by inpatient rehabilitation for 21-30 days followed by an emergency room visit a day or 2 later back to hospitalization. There is limited indication of any effectiveness of any of this treatment at this point. There've been a few episodes of psychosis secondary to the methamphetamine. But in general it simply him reporting that he is suicidal, that he is depressed and that he wants to stop using. He presents to the hospitalizations positive for methamphetamine generally has a few days of withdrawal, become more active and requesting to be sent to some facility and not be discharged prior to that point. We have discussed at length our belief that the only chance he has to make a change is to be in a long-term program or unfortunately be locked up by the police for an extended period of time to try to get him enough sobriety to maybe have a clear enough mind to make some changes. Unfortunately the diagnosis of malingering in conjunction with his antisocial personality disorder make for a tough combination and make evaluation difficult given that he is really says when he has come to understand we'll work to get him admitted. Allergies: Coded Allergies: AMOXICILLIN (Verified Allergy, Unknown, UNABLE TO BREATH AND THROAT SWELLS, 04/18/18) PENICILLINS (Verified Allergy, Unknown, 04/18/18) Home Meds: Home Medications: Active Seroquel Tab (Quetiapine Fumarate) 100 Mg Tablet 300 Mg PO BEDTIME 30 Days Seroquel Tab (Quetiapine Fumarate) 50 Mg Tablet 50 Mg PO BID 30 Days Prozac Cap (Fluoxetine HCl) 20 Mg Tablet 20 Mg PO DAILY 30 Days Past Medical History Other Family Medical History: Unchanged from the recent hospitalization. Other Past Social History: Unchanged from the recent hospitalization. Physical Exam Physical Exam: This is a obese white male with adequate rest, grooming and eye contact. No abnormal movements except for psychomotor retardation. Semicooperative with exam. In mild distress. Speech was decreased rate and volume with a little slurring of his voice. Mood described as depressed, affect lethargic. Thought process organized. Thought content: Patient endorsed suicidal ideation but denied homicidal ideation, there were no delusions reported are noted, he denied any auditory or visual hallucinations. Attention and concentration were intact and memory was unreliable but none were formally tested. He is alert and oriented ?3. Insight and judgment are impaired. Assessment/Problem List Assessment/Problem List Other Assessment/Problem List: Malingering, antisocial personality disorder methamphetamine use disorder severe, rule out methamphetamine-induced mood disorder, depressive disorder unspecified, insomnia Plan This is a 48-year-old white male well known to this short story writer from hospitalization in [facility] as well as here at [facility] who presents as hours after he was discharged by this short story writer from the neuropsych unit after being on a 96 hour hold. He is concluding this year having had double digit admissions, reportedly almost twice as many ER visits, at least 6 inpatient rehabs and multiple stays at other psychiatric facilities. He has significant addiction issues which has led to significant psychosocial dysfunction, homelessness, and episodes of mood dysregulation and psychosis. He presents as he has many times with clear desire to have somewhere to go when he has nowhere to go. 1Estrellita Stein is not without risk for poor outcomes given his high impulsivity with the antisocial personality disorder, high impulsivity with addiction and feeling like his options are running out. However he has no significant history of acts of furtherance with his suicidal thoughts. He has mostly had suicidal threats which have been answered by admissions. The outcome of our response as the treatment community is that he has been in institutional settings 4 more days than not this year. And even with that, we find ourselves with him presenting for his third attempt at hospitalization here in the last 2 weeks. Given his profile, he has some risk for lethality/self-harm but that same risk exists every time we discharge him throughout the year. As he and I discussed during this recent hospitalization, we're are at a point where it feels like we the system are a part of the problem. 2. The assessment is that he has malingering. He generally talks of big game from the standpoint of saying that he has plenty of places to go he's just depressed. But in conversations about his son's he reports he can go there but he never does. 3. At this point just in this calendar year we have spent four figures getting counseling locations only to have home not stay or return as soon as that treatment regimen is completed. 4. At this point we cannot admit him every time he presents saying he's thinking bad things or something like that. We must encourage him to utilize community resources like the ones we gave him but he did not call while he was admitted. His expectation on the unit is for everyone to work to find him a place to go but he is not participating in the work to find him a place to go. Then becomes time for discharge and he reports that he is not ready. He was even offered the opportunity to spin the morning calling some of the resources he was given and he refused and reported he would just go stay at a friend's house. 5. He was given the number to resources, the [facility], some of the Yazidi resources in the community given his lack of insurance. It would be appropriate for him to continue to seek those out. 6. Staff/evaluated should be prepared for him to possibly be aggressive as he has become quite frustrated with him not being admitted because he said he was suicidal. 7. However the overall recommendation is for him to discharge not be readmitted to the NPU Medical Necessity Statement: Inpatient hospitalization is not medically necessary. In fact this point given the issue with malingering and him not making significant changes in his life, admitting him is becoming part of the problem and preventing him from having to face circumstances that he is creating with his choices. Hospital Course Hospital Course Emil presented to the emergency department with active addiction, irritability endorsing depression and suicidality without a place to stay, so he was admitted to the Neuropsychiatric unit for definitive treatment of those issues. Consistent with his history they were considerable concerns for malingering. He was resistant to treatment during the visit, but we were able to find him a bed at a senior living and he was able to contract for safety prior to discharge. No medications were initiated.During the hospitalization, patient had routine laboratory studies which were within normal limits except for few outliers. Additionally there was a general medical evaluation which was also within normal limits and revealed no new acute processes. Discharge Summary: At the time of discharge, he was absent lethality or psychosis. Mood and anxiety were well managed. Patient endorsed a plan to avoid all drugs of abuse and follow-up with the aftercare recommendations of the treatment team. Patient was evaluated and deemed to be absent credible lethality, and had achieved the maximum benefit from an inpatient hospitalization, so was discharged. Hospital Course Hospital Course He slowly acclimated to the individual, group and milieu therapies provided. He was maintained on recent home meds. He had a fairly similar hospitalization to what we come to expect with irritability in the beginning and then doing better after his withdrawal resolved. He had modest improvement and was able to contract for safety outside of the hospital prior to discharge. During the hospitalization, patient had routine laboratory studies which were within normal limits except for few outliers. Additionally there was a general medical evaluation which was also within normal limits and revealed no new acute processes. Discharge Summary: At the time of discharge, he denied psychosis or lethality. Mood and anxiety were well managed. Patient endorsed a plan to avoid all drugs of abuse and follow-up with the aftercare recommendations of the treatment team. Patient was evaluated and deemed to be absent credible lethality, and had achieved the maximum benefit from an inpatient hospitalization, so was discharged. Involuntary Hold Information 96 Hour Hold: 96 Hour Involuntary Admission: Yes 96 Hour Hold Ending Date: 03/13/21 96 Hour Hold Ending Time: 22:29 Mental Status Exam MSE Comments: This is an overweight versus obese white male in hospital scrubs with limited grooming and eye contact. No abnormal movements except for resolving psychomotor retardation. Cooperative with exam in no acute distress. Speech was more spontaneous and more normal rate and volume. Mood described as better, affect less irritable. Thought process mostly organized. Thought content: Patient denied suicidal or homicidal ideation, there were no delusions reported or noted, he denied auditory or visual hallucinations. Attention and concentration were improving and memory was more reliable but none were formally tested. He is alert and oriented x3. Insight and judgment are improving, impulse control is limited. Discharge Data Data Completed and Pending: Completed Studies During Hospitalization Category Date Time Status CT head wo con* 7 0450 Urgent Cat Scan 03/07/21 19:35 Completed Vitals: Last Vital Signs Temp 97.3 F L 03/11/21 06:00 Pulse 74 03/11/21 06:00 Resp 16 03/11/21 06:00 BP 117/73 03/11/21 06:00 Pulse Ox 98 03/11/21 06:00 Discharge Plan Discharge Patient Disposition: Home Condition: Stable Prescriptions: Continued Seroquel 300 mg tablet 300 mg PO BEDTIME 30 Days Qty: 30 RF: 1 clonazepam 0.5 mg tablet 0.5 mg PO TID 15 Days Qty: 45 RF: 2 quetiapine 200 mg tablet 200 mg PO BEDTIME 30 Days Qty: 30 RF: 1 divalproex 500 mg tablet,delayed release (DR/EC) 500 mg PO BID 30 Days Qty: 60 RF: 1 Changed venlafaxine 150 mg capsule,extended release 24hr 150 mg PO DAILY 30 Days Qty: 30 RF: 1 Discharge Orders: Discharge Order (Routine); Ordered 03/11/21 Ordered By: Sam Bond Discharge Diet: Regular Discharge Activity: Resume usual activity Patient Instructions: Opioid Safety Discharge Attestations NPU Time Spent in Discharge Care*: less than 30 min Specific Discharge Activities: Specific discharge activities: educating patient, discussing with case management assistant/social workers/dc planners, documenting/other paperwork and evaluating patient/reviewing data Status at Discharge: Cognitive status at discharge: cognitively intact, Behavioral status at discharge: cooperative, Coding Level of Care Code Acute Chg FW DC note Diagnoses Suicidal ideation R45.851 Drug-induced psychotic disorder F19.959 Malingering Z76.5 Antisocial personality disorder F60.2 Depressed bipolar I disorder F31.9
[2021-03-11 11:31] VITALS: BP 117/73; PULSE 74; RESP 16; TEMP 36.3; O2SAT 98
== END 2021-03-11 11:45 | disposition home or self-care (01) | DRG 897 ==
LOC: ER 22:13 → NP 23:25
PROVIDERS: Admitting Provider Psychiatry & Neurology Psychiatry; Emergency Provider Emergency Medicine; Visit Provider Psychiatry & Neurology Psychiatry
DX: F15.959 Other stimulant use, unspecified with stimulant-induced psychotic disorder, unspecified (principal); R45.851 Suicidal ideations; F60.2 Antisocial personality disorder; F31.9 Bipolar disorder, unspecified; Z76.5 Malingerer [conscious simulation]; F17.210 Nicotine dependence, cigarettes, uncomplicated; F15.929 Other stimulant use, unspecified with intoxication, unspecified
CPT/HCPCS: 36415; 70450; 80053; 80306; 80307; 85025; 97150; 97165; 99285

== ENCOUNTER → 2021-05-07 11:02 | Outpatient (BNVA) | payer MEDICARE, MEDICAID, SELFPAY | PROVIDERS: Visit Provider Nurse Practitioner | DX: F31.81 Bipolar II disorder (principal); Z79.899 Other long term (current) drug therapy; F10.21 Alcohol dependence, in remission | CPT/HCPCS: 90792 ==

== ENCOUNTER 2021-05-13 14:56 | Inpatient (IN) | payer MEDICARE, MEDICAID, SELFPAY ==
--- NOTE | 2021-05-13 15:10 | ED.C_ITS ---
HPI - Psych General: Chief Complaint: Psychiatric Symptoms Stated Complaint: SI Time Seen by Provider: 05/13/21 15:04 Source: patient Mode of arrival: ambulatory Limitations: no limitations History of Present Illness: 50-year-old male who has a history of bipolar disorder along with suicidality in the past. He states he has been having increasing depression and hallucinations especially auditory hallucinations the last 2 to 3 days. He states he has not been taking his medicine he has been having suicidal thoughts. He wants to get out. He denies any worsening improving factors. Denies any attempts. Associated symptoms: Reports auditory hallucinations, depression and suicidal ideation Review of Systems Const: Denies: fever(s), chills, body aches or change in appetite Eyes: Denies: blurry vision or eye discomfort ENMT: Denies: throat pain or dental pain Card: Denies: chest pain Resp: Denies: dyspnea GI: Denies: abdominal pain, nausea, vomiting or diarrhea : Denies: dysuria Musc: Denies: neck pain or back pain Skin/Breast: Denies: rash Neuro: Denies: headache(s) Psych: Reports: depression, auditory hallucinations and suicidal ideation Ish/Lymph: Denies: easy bruising All/Imm: Denies: urticaria PFSH ED PFSH: Medical History Alcohol dependence, in remission Bipolar 2 disorder Psychiatric care Social History Smoking and tobacco status: current every day smoker Physical Exam Const: COMMON NORMALS: no acute distress, patient oriented x3 and healthy appearing HENMT: COMMON NORMALS: normocephalic and atraumatic HEAD & SCALP: normocephalic and atraumatic Eye: COMMON NORMALS: Equal, round and reactive pupils present and EOMs intact bilaterally PUPIL: Yes Equal, round and reactive pupils present Neck/C-Spine: COMMON NORMALS: full ROM and supple Chest: COMMONS NORMALS: normal inspection of the chest and normal palpation of entire chest wall Resp: COMMON NORMALS: normal respiratory effort, No retractions, No use of accessory muscles and clear to auscultation bilaterally AUSCULTATION: clear to auscultation bilaterally Cardio: COMMON NORMALS: regular rate, regular rhythm and No murmurs present (Cardio) RATE: regular rate RHYTHM: regular rhythm GI: COMMON NORMALS: Normal to inspection, nondistended, normoactive bowel sounds present, Soft to palpation, non-tender and no masses PALPATION: Yes Soft to palpation Extremity: COMMON NORMALS: normal to inspection and full ROM Neuro: COMMON NORMALS: patient oriented x3, moves all extremities and no focal motor deficits Psych: COMMON NORMALS: mental status grossly normal and cooperative THOUGHT CONTENT: Yes Suicidality present and Yes Hallucination(s) present Skin: COMMON NORMALS: no rashes or lesions noted and no wounds GENERAL SKIN EXAM: no rashes or lesions noted Course Vital Signs: Vital signs: Vital Signs Temperature 97.5 F L 05/13/21 15:12 Pulse Rate 89 05/13/21 15:23 Respiratory Rate 18 05/13/21 15:23 Blood Pressure 116/75 05/13/21 15:23 Pulse Oximetry 96 05/13/21 15:23 MDM - Psych Medical Decision Making Patient presents here with suicidal ideation along with auditory hallucinations spoke to psychiatrist did patient placed in under a 96-hour hold and will admit he has been stable while here. Lab Data : 05/13/21 15:22 05/13/21 15:22 Laboratory Results WBC 12.0 10^3/uL (4.0-10.0) H 05/13/21 15:22 RBC 4.92 10^6/uL (4.1-5.3) 05/13/21 15:22 Hgb 16.2 g/dL (11.7-16.6) 05/13/21 15:22 Hct 46.9 % (42.0-52.0) 05/13/21 15:22 MCV 95.3 fl (80-94) H 05/13/21 15:22 MCH 32.9 pg (28.0-34.0) 05/13/21 15:22 MCHC 34.5 g/dL (30.0-36.0) 05/13/21 15: RDW 12.9 % (12.1-15.1) 05/13/21 15:22 Plt Count 233 10^3/cmm (130-400) 05/13/21 15: MPV 9.9 fL (7.4-10.4) 05/13/21 15:22 Neut % (Auto) 64.9 % 05/13/21 15:22 Lymph % (Auto) 20.5 % 05/13/21 15:22 [place] % (Auto) 11.6 % 05/13/21 15:22 Eos % (Auto) 1.9 % 05/13/21 15:22 Baso % (Auto) 0.8 % 05/13/21 15:22 Neut # (Auto) 7.80 10^3/uL (1.8-7.7) H 05/13/21 15:22 Lymph # (Auto) 2.5 10^3/uL (0.8-4.8) 05/13/21 15:22 [place] # (Auto) 1.4 10^3/uL (0.2-0.9) H 05/13/21 15:22 Eos # (Auto) 0.2 10^3/uL (0.0-0.8) 05/13/21 15:22 Baso # (Auto) 0.1 10^3/uL (0.0-0.1) 05/13/21 15:22 Nucleated RBC % (auto) 0 % 05/13/21 15: Nucleated RBCs # 0.0 /100WBC 05/13/21 15:22 Sodium 139 mmol/L (136-145) 05/13/21 15:22 Potassium 3.8 mmol/L (3.5-5.1) 05/13/21 15: Chloride 104 mmol/L (98-107) 05/13/21 15: Carbon Dioxide 23 mmol/L (22-29) 05/13/21 15:22 Anion Gap 15.8 (5-19) 05/13/21 15:22 BUN 12 mg/dL (6-20) 05/13/21 15:22 Creatinine 1.0 mg/dL (0.7-1.2) 05/13/21 15:22 GFR Calculation 78.8 mL/min (90-130) L 05/13/21 15: Glucose 95 mg/dL (65-115) 05/13/21 15:22 Calculated Osmolality 288 mOsm/kg (285-295) 05/13/21 15:22 Calcium 8.8 mg/dL (8.5-10.5) 05/13/21 15:22 Total Bilirubin 0.5 mg/dL (0.15-1.2) 05/13/21 15:22 AST 28 U/L (0-40) 05/13/21 15:22 ALT 35 U/L (0-41) 05/13/21 15:22 Alkaline Phosphatase 85 IU/L (40-130) 05/13/21 15:22 Total Protein 7.2 g/dL (6.6-8.7) 05/13/21 15: Albumin 4.8 g/dL (3.5-5.2) 05/13/21 15: Globulin 2.4 g/dL (1.3-4.6) 05/13/21 15:22 Salicylates 0.6 mg/dL (3-10) L 05/13/21 15:22 Urine Opiates Screen Negative ng/mL (Negative) 05/13/21 15:07 Acetaminophen < 5.0 ug/mL (10-30) L 05/13/21 15:22 Ur Barbiturates Screen Negative ng/mL (Negative) 05/13/21 15:07 Ur Phencyclidine Scrn Negative ng/mL (Negative) 05/13/21 15:07 Ur Amphetamines Screen Negative ng/mL (Negative) 05/13/21 15:07 U Benzodiazepines Scrn Negative ng/mL (Negative) 05/13/21 15:07 Urine Cocaine Screen Negative ng/mL (Negative) 05/13/21 15:07 U Marijuana (THC) Screen Negative ng/mL (Negative) 05/13/21 15:07 Ethyl Alcohol < 10 mg/dL (0-10) 05/13/21 15:22 Discharge Plan Discharge Patient Disposition: Admitted As Inpatient Admit Provider: Sam Bond Clinical Impression: Suicidal ideation Condition: Stable Coding Level of Care Code ED Sales Enablement Manager for Wilder 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
[2021-05-13 15:12] VITALS: BP 116/75; PULSE 89; RESP 18; TEMP 36.4; O2SAT 96; BMI 33.5
[2021-05-13 15:23] VITALS: BP 116/75; PULSE 89; RESP 18; O2SAT 96
[2021-05-13] MEDS: LORazepam 2 mg Tablet PO (15:27)
[2021-05-13] MEDS: haloperidol 5 mg Tablet PO (15:27)
[2021-05-13 15:30] LABS: Basophils # 0.1 10^3/uL (0.0-0.1); Basophils % 0.8 %; Eosinophils # 0.2 10^3/uL (0.0-0.8); Eosinophils % 1.9 %; Hematocrit 46.9 % (42.0-52.0); Hemoglobin 16.2 g/dL (11.7-16.6); Lymphocytes # 2.5 10^3/uL (0.8-4.8); Lymphocytes % 20.5 %; Mean Corpuscular HGB Conc 34.5 g/dL (30.0-36.0); Mean Corpuscular Hemoglobin 32.9 pg (28.0-34.0); Mean Corpuscular Volume 95.3 fl (80-94); Mean Platelet Volume 9.9 fL (7.4-10.4); Monocytes # 1.4 10^3/uL (0.2-0.9); Monocytes % 11.6 %; Neutrophils % 64.9 %; Nucleated Red Blood Cells % 0 %; Platelet Count 233 10^3/cmm (130-400); Red Blood Count 4.92 10^6/uL (4.1-5.3); Red Cell Distribution Width 12.9 % (12.1-15.1)
[2021-05-13 15:48] LABS: Amphetamines Screen Urine Negative (Negative); Barbiturates Screen Urine Negative (Negative); Benzodiazepines Screen Urine Negative (Negative); Cocaine Screen Urine Negative (Negative); Opiate Screen Urine Negative (Negative); PCP Screen Urine Negative (Negative); THC Screen Urine Negative (Negative)
[2021-05-13 16:20] LABS: Alanine Aminotransferase 35 U/L (0-41); Albumin Level 4.8 g/dL (3.5-5.2); Alkaline Phosphatase 85 IU/L (40-130); Anion Gap 15.8 (5-19); Aspartate Amino Transferase 28 U/L (0-40); Blood Urea Nitrogen 12 mg/dL (6-20); Calcium 8.8 mg/dL (8.5-10.5); Carbon Dioxide 23 mmol/L (22-29); Chloride 104 mmol/L (98-107); Globulin 2.4 g/dL (1.3-4.6); Glomerular Filtration Rate 78.8 mL/min (90-130); Glucose 95 mg/dL (65-115); Osmolality Calculated 288 mOsm/kg (285-295); Potassium 3.8 mmol/L (3.5-5.1); Salicylate 0.6 mg/dL (3-10); Sodium 139 mmol/L (136-145); Total Bilirubin 0.5 mg/dL (0.15-1.2); Total Protein 7.2 g/dL (6.6-8.7)
[2021-05-13 16:22] LABS: Acetaminophen < 5.0 ug/mL (10-30); Alcohol Level < 10 mg/dL (0-10)
[2021-05-13 17:38] VITALS: BP 122/80; PULSE 76; RESP 18; TEMP 36.6; O2SAT 100
--- NOTE | 2021-05-13 18:27 | PC.NURSE ---
ADMISSION- PATIENT ARRIVED FROM ED TO NPU FOR SI. SI WITH A PLAN TO HANG SELF. STATES THAT THE SI ARE CHRONIC FOR HIM AND THAT IF HE HAD A ROPE OR WAS OUT OF HERE HE WOULD BE HAVING SI. REPORTS HAVING ANGER ISSUES THAT ARISE FOR NO REASON. REPORTS THAT HE GOES TO [facility] [place] AND RECEIVED SEROQUEL BUT HAS NOT TAKEN IT. HX OF BIPOLAR. WAS LIVING IN THE [facility] BUT LEFT 3 DAYS AGO TO GO CAMPING AND REGRETS THIS DECISION. IS HOPING TO BE ABLE TO RETURN. STATED THAT HE DID NOT WANT TO DISCLOSE WHY THE THOUGHTS HAVE INCREASED IN THE PAST 3 DAYS JUST THAT IT WAS STRESS AND ISSUES. PATIENT TENSE BUT COOPERATIVE WITH ADMISSION. UDS NEGATIVE. NO ETOH IN SYSTEM, 60 DAYS SOBER.
[2021-05-13] MEDS: hyDROXYzine 25 mg Capsule 50 MG PO (18:51)
[2021-05-13] MEDS: nicotine 2 mg Gum BUCCAL (18:51)
[2021-05-13 22:00] VITALS: BP 107/66; PULSE 78; RESP 18; TEMP 36.6; O2SAT 96
[2021-05-14 06:00] VITALS: BP 111/71; PULSE 70; RESP 18; TEMP 36.5; O2SAT 97
--- NOTE | 2021-05-14 09:24 | P.NPUHP_ITS ---
Providers/Chief Complaint Admitting Physician: Sam Bond MD Chief Complaint: SI HPI NPU History of Present Illness Emil Castro is a 50 year old male who presented to the emergency department the following report: Chief Complaint: Psychiatric Symptoms Stated Complaint: SI Time Seen by Provider: 05/13/21 15:04 Source: patient Mode of arrival: ambulatory Limitations: no limitations History of Present Illness:?? 50-year-old male who has a history of bi polar disorder along with suicidality in the past.? He states he has been having incr easing depression and hallucinations especially auditory hallucinations the last 2 to 3 days.? He states he has not been taking his medicine he has been having suicidal thoughts.? He wants to get out.? He denies any worsening improving factors.? Denies any attempts. Associated symptoms: Reports auditory hallucinations, depression and suicidal ideation He was admitted to the neuropsychiatric unit for definitive treatment of those issues. 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 He was last discharged on March 11, 2021 he was [facility] in the [facility] recently. He had regular [facility] follow-up. He had a psychiatric evaluation on 05/07/2021 and then was engaged by [facility] program and reports that he has been sober for about 60 days, he recently lost his brother about 4 months ago, he reports he moved closer to this region from [place] which he reports was really bad. He reports that he is now the [employer] and that has been better but in the last few days he reports that he has struggled with suicidal thoughts. He reports that he has been taking his medication which was only Seroquel 300 mg p.o. nightly he reports that for what ever reason he has been feeling more suicidal and less stable over the past few days. We discussed the risk-benefit alternatives of continuing his current medication and he understood agreed proceed as is documented in this note. We also discussed the prospect of getting started on antidepressant but though he endorsed feeling suicidal he denied being depressed. The only substantive changes that he reports since his last hospitalization is that he no longer lives in [place] and that he reports he been sober for 2 months and his UDS was negative for substances of abuse. An excerpt of his [address] [facility] inpatient psychiatric evaluation is included below for context. Per his 03/08/[address] [facility] inpatient psychiatric evaluation: History of Present Illness Emil Castro is a 50 year old male who presented to the emergency department with the following report: Chief Complaint: Psychiatric Symptoms Stated Complaint: si Time Seen by Provider: 03/07/21 19:35 Source: patient Mode of arrival: ambulatory Limitations: no limitations History of Present Illness:?? HPI Narrative: 50-year-old male who is here for suicidal ideation. He states he been having suicidal thoughts over the last 10 days. He states that increased agitation has been hearing voices states that he does want to kill himself and h as a plan of jumping in front of a semitruck. He also admits to chronic meth use with meth use recently as well. Denies any worst improving factors. Associated symptoms: Reports auditory hallucinations, depression and suicidal ideation. He was made to the neuropsychiatric unit for the treatment of those issues.? Is well-known to this unit secondary to multiple things hospitalizations.? He presents today much like his previous hospitalizations is a fairly resistant historian.? Today it seems more likely that is secondary to withdrawal from methamphetamine causing him to have some confusion, increased somnolence and some irritability.? His answers to questions are generalities not specifics but at this point it seems more a product of his intoxication/withdrawal that it does volitional behavior.? He gave some report of being in [place] since his discharge in April of this year then returning here recently but he had no reasons for why he went to [place], what he was doing there, why he returned here, what his recovery has been like.? He can give no helpful information about when he last took medication, what he was taking for sure, but he reports taking Seroquel and Klonopin.? Of course we discussed Klonopin not being a great idea overall for someone with such significant addiction.? He did not give any real information about where he has been living, how he has been providing for himself, any other drug and alcohol or mental health services being utilized the last 10 months.? We agreed we would investigate some of this information and hopefully determine what he has been doing and how we can help.? An excerpt from his 04/30/2020 discharge summary is included below for context. Meds NPU Home Medications Medication Instructions Recorded Confirmed Last Taken Type quetiapine 300 mg tablet (Seroquel) 300 mg PO BEDTIME 30 Days #30 tab 05/07/21 05/13/21 05/12/21 Rx Allergies Allergy/AdvReac Type Severity Reaction Status Date / Time Penicillins Allergy ALGY-Hives Verified 05/07/21 11:40 PFSH NPU PFSH: Medical History Alcohol dependence, in remission Bipolar 2 disorder Psychiatric care Social History Smoking and tobacco status: current every day smoker Mental Status Exam MSE Comments: This is an overweight versus obese white male in hospital scrubs with limited grooming and eye contact.? No abnormal movements except for mild psychomotor retardation.? Semicooperative with exam in mild distress.? Speech was limited and mostly normal rate and decreased volume.? Mood described as suicidal, affect slightly irritable.? Thought process mostly organized.? Thought content: Patient endorsed suicidal ideation but denied homicidal ideation, there were no delusions reported or noted, he endorsed auditory but denied visual hallucinations.? Attention and concentration were limited and memory was mostly reliable but none were formally tested.? He is alert and oriented x3.? Insight and judgment are impaired, impulse control is impaired. Vitals/I&O/Wt Last Vital Signs Temp 97.9 F 05/13/21 22:00 Pulse 78 05/13/21 22:00 Resp 18 05/13/21 22:00 BP 107/66 05/13/21 22:00 Pulse Ox 96 05/13/21 22:00 Weight last 48 hrs Weight 108.862 kg Data NPU : 05/13/21 15:22 05/13/21 15:22 A&P Assessment and plan (1) Suicidal ideation: Status: Acute (2) Alcohol dependence, in remission: Status: Acute (3) Bipolar 2 disorder: Status: Acute (4) Antisocial personality disorder: Status: Chronic Plan This is a 50-year-old white male with a long history of multiple inpatient hospitalizations often with concerns for malingering who presents today as a member of the [facility] program staying in [facility] and reporting sobriety at this point but with suicidal ideation. 1. Continue current medication. 2. Continue every 15 minute checks for safety. 3. Encourage individual, group and milieu therapies. 4. Encourage sober living treatment after discharge at the highest level of care to which he is willing to commit. 5. Patient appears to be sober but hearing voices and feeling suicidal it would be informative if he could maintain his sobriety for a year and maybe we see what his real baseline is like from a psychiatric standpoint. Involuntary Hold Information 96 Hour Hold: 96 Hour Involuntary Admission: Yes 96 Hour Hold Ending Date: 05/18/21 96 Hour Hold Ending Time: 00:01 Attestations NPU Medical Necessity Statement*: Inpatient hospitalization is medically necessary and the clinically appropriate intervention at this time.? We will monitor medications and make changes as indicated.? Patient will be in the hospital for over two midnights.? Likely length of stay 3-5 days. Coding Level of Care Code Acute Sccm Administrator for Lizabethg Fwd Diagnoses Suicidal ideation R45.851 Alcohol dependence, in remission F10.21 Bipolar 2 disorder F31.81 Antisocial personality disorder F60.2
[2021-05-14] MEDS: nicotine 2 mg Gum BUCCAL ×2 (11:48→14:44)
[2021-05-14 14:00] VITALS: BP 90/53; PULSE 97; RESP 18; TEMP 37.1; O2SAT 97
[2021-05-14 22:00] VITALS: BP 106/69; PULSE 89; RESP 18; TEMP 36.7; O2SAT 98
[2021-05-14] MEDS: quetiapine 300 mg Tablet PO (22:52)
[2021-05-15 06:00] VITALS: BP 99/65; PULSE 99; RESP 18; TEMP 36.7; O2SAT 98
--- NOTE | 2021-05-15 10:53 | NPU.GN ---
[facility] Group Topic:Tiffanie Tran General Mood of Group: Emil did not attend group today.
[2021-05-15 14:00] VITALS: BP 131/79; PULSE 82; RESP 17; TEMP 36.8; O2SAT 99
[2021-05-15] MEDS: nicotine 2 mg Gum BUCCAL (17:06)
--- NOTE | 2021-05-15 19:51 | W.PM.NPUPNS ---
Subjective NPU Subjective: Interval history: Patient presents today reporting that he met with the [facility] which in discussing with them it did not go that great. He has okayed the restarting of Seroquel we discussed that clearly it appears that he would benefit from some other antipsychotic/mood stabilizer. It appears that he is focused more on sleep that his overall cognitive functioning. He is very focused on discharge back to [facility] tomorrow is unclear if he understands to be on a 96-hour hold. We did discuss the possibility a different antipsychotic with the risk-benefit and alternatives and it was unclear if he understood and agreed to proceed as is documented in this note. Mental Status Exam MSE Comments: This is an overweight versus obese white male in hospital scrubs with limited grooming and eye contact.? No abnormal movements except for mild psychomotor retardation.? Semicooperative with exam in mild distress.? Speech was limited and mostly normal rate and decreased volume.? Mood described as better, be ready to leave tomorrow affect slightly irritable.? Thought process mostly organized.? Thought content: Patient endorsed denied suicidal or homicidal ideation, there were no delusions reported or noted, he endorsed auditory but denied visual hallucinations.? Attention and concentration were limited and memory was mostly reliable but none were formally tested.? He is alert and oriented x3.? Insight and judgment are impaired, impulse control is impaired. Vitals/I&O/Wt Last Vital Signs Temp 98.2 F 05/15/21 14:00 Pulse 82 05/15/21 14:00 Resp 17 05/15/21 14:00 BP 131/79 05/15/21 14:00 Pulse Ox 99 05/15/21 14:00 Data NPU : 05/13/21 15:22 05/13/21 15:22 A&P Assessment and plan (1) Suicidal ideation: Status: Acute (2) Alcohol dependence, in remission: Status: Acute (3) Bipolar 2 disorder: Status: Acute (4) Drug-induced psychotic disorder: Status: Acute (5) Antisocial personality disorder: Status: Chronic Plan This is a 50-year-old white male with a long history of multiple inpatient hospitalizations often with concerns for malingering who presents today as a member of the [facility] program staying in [facility] and reporting sobriety at this point but with suicidal ideation. 1.? Continue current medication. We discussed the possibility of starting a different antipsychotic tomorrow and he was focused on discharging we discussed the fact that it would not prevent him discharging necessarily but he is apparently unclear on a 96-hour hold status. 2.? Continue every 15 minute checks for safety. 3.? Encourage individual, group and milieu therapies. 4.? Encourage sober living treatment after discharge at the highest level of care to which he is willing to commit. 5.? Patient appears to be sober but hearing voices and feeling suicidal it would be informative if he could maintain his sobriety for a year and maybe we see what his real baseline is like from a psychiatric standpoint. Involuntary Hold Information 96 Hour Hold: 96 Hour Involuntary Admission: Yes 96 Hour Hold Ending Date: 05/18/21 96 Hour Hold Ending Time: 00:01 Attestations NPU Medical Necessity Statement*: Inpatient hospitalization is medically necessary and the clinically appropriate intervention at this time.? We will monitor medications and make changes as indicated. Likely length of stay 2-4 days. Coding Level of Care Code Acute Cupola Melter Helper for Wilder Fwd Diagnoses Suicidal ideation R45.851 Alcohol dependence, in remission F10.21 Bipolar 2 disorder F31.81 Drug-induced psychotic disorder F19.959 Antisocial personality disorder F60.2
[2021-05-15] MEDS: quetiapine 300 mg Tablet PO (20:08)
[2021-05-15 20:33] VITALS: BP 90/53; PULSE 76; RESP 17; TEMP 36.7; O2SAT 97
[2021-05-16 06:00] VITALS: BP 85/55; PULSE 75; RESP 17; TEMP 36.3; O2SAT 97
[2021-05-16] MEDS: nicotine 2 mg Gum BUCCAL (08:17)
--- NOTE | 2021-05-16 10:38 | NPU.GN ---
[facility] Group Topic: Jamar Delvalle General Mood of Group: Emil attended and participated in group. He was social, his hygiene was good and he seemed stable at this time.
--- NOTE | 2021-05-16 10:58 | W.PM.NPUDCS ---
Diagnoses at Discharge Discharge Diagnosis (1) Suicidal ideation: Status: Resolved (2) Alcohol dependence, in remission: Status: Acute (3) Bipolar 2 disorder: Status: Acute (4) Drug-induced psychotic disorder: Status: Acute (5) Antisocial personality disorder: Status: Chronic Reason for Visit Reason for Visit: SI Hospital Course Hospital Course He slowly acclimated to the individual, group milieu therapies provided. Unlike previous hospitalizations he seemed mostly interested in eating and had no desire to drag his hospitalization out. He has connected to outpatient services. He was resistant to recommendations for an antipsychotic for his symptoms. We discussed that the Seroquel though it helps him sleep does not seem to be impacting his thought disorder but he was not interested in staying or try anything new. Given the fact that he is finally connected with services and the challenges that would be created given his reluctance to treatment we discussed allowing him to leave but discussed that he return that we would feel obligated to try to move forward with an alternative medication. During the hospitalization, patient had routine laboratory studies which were within normal limits except for few outliers. Additionally there was a general medical evaluation which was also within normal limits and revealed no new acute processes. Discharge Summary: At the time of discharge, lethality was denied and psychosis was resolving. Mood and anxiety were well managed. Patient endorsed a plan to avoid all drugs of abuse and follow-up with the aftercare recommendations of the treatment team. Patient was evaluated and deemed to be absent credible lethality, and had achieved the maximum benefit from an inpatient hospitalization, so was discharged. Involuntary Hold Information 96 Hour Hold: 96 Hour Involuntary Admission: Yes 96 Hour Hold Ending Date: 05/18/21 96 Hour Hold Ending Time: 00:01 Mental Status Exam MSE Comments: This is an overweight versus obese white male in hospital scrubs with limited grooming and eye contact.? No abnormal movements except for mild psychomotor retardation.? Mostly cooperative with exam in no acute distress.? Speech was limited and mostly normal rate and decreased volume.? Mood described as better, affect congruent.? Thought process mostly organized.? Thought content: Patient denied suicidal or homicidal ideation, there were no delusions reported or noted, he endorsed auditory but denied visual hallucinations.? Attention and concentration were limited and memory was mostly reliable but none were formally tested.? He is alert and oriented x3.? Insight and judgment are limited, impulse control is impaired. Discharge Data Studies Completed and Pending: Laboratory Results WBC 12.0 10^3/uL (4.0 -10.0) H 05/13/21 15: RBC 4.92 10^6/uL (4.1 -5.3) 05/13/21 15: Hgb 16.2 g/dL (11.7-1 6.6) 05/13/21 15:22 Hct 46.9 % (42.0-52.0 ) 05/13/21 15: MCV 95.3 fl (80-94) H 05/13/21 15:22 MCH 32.9 pg (28.0-34. 0) 05/13/21 15: MCHC 34.5 g/dL (30.0-3 6.0) 05/13/21 15: RDW 12.9 % (12.1-15.1 ) 05/13/21 15: Plt Count 233 10^3/cmm (130 -400) 05/13/21 15: MPV 9.9 fL (7.4-10.4) 05/13/21 15:22 Neut % (Auto) 64.9 % 05/13/21 15:22 Lymph % (Auto) 20.5 % 05/13/21 15:22 [place] % (Auto) 11.6 % 05/13/21 15: Eos % (Auto) 1.9 % 05/13/21: Baso % (Auto) 0.8 % 05/13/21:22 Neut # (Auto) 7.80 10^3/uL (1.8 -7.7) H 05/13/21 15:22 Lymph # (Auto) 2.5 10^3/uL (0.8- 4.8) 05/13/21 15:22 [place] # (Auto) 1.4 10^3/uL (0.2- 0.9) H 05/13/21 15:22 Eos # (Auto) 0.2 10^3/uL (0.0- 0.8) 05/13/21 15: Baso # (Auto) 0.1 10^3/uL (0.0- 0.1) 05/13/21 15: Nucleated RBC % (a uto) 0 % 05/13/21 15: Nucleated RBCs # 0.0 /100WBC 03/06/22 15:22 Sodium 139 mmol/L (136-1 45) 05/13/21 15:22 Potassium 3.8 mmol/L (3.5-5 .1) 05/13/21 15: Chloride 104 mmol/L (98-10 7) 05/13/21 15:22 Carbon Dioxide 23 mmol/L (22-29) 05/13/21 15:22 Anion Gap 15.8 (5-19) 05/13/21 15:22 BUN 12 mg/dL (6-20) 05/13/21 15:22 Creatinine 1.0 mg/dL (0.7-1. 2) 05/13/21 15: GFR Calculation 78.8 mL/min (90-1 30) L 05/13/21 15: Glucose 95 mg/dL (65-115) 05/13/21 15: Calculated Osmolal ity 288 mOsm/kg (285- 295) 05/13/21 15: Calcium 8.8 mg/dL (8.5-10 .5) 05/13/21 15:22 Total Bilirubin 0.5 mg/dL (0.15-1 .2) 05/13/21 15: AST 28 U/L (0-40) 05/13/21 15: ALT 35 U/L (0-41) 05/13/21 15:22 Alkaline Phosphata se 85 IU/L (40-130) 05/13/21 15:22 Total Protein 7.2 g/dL (6.6-8.7 ) 05/13/21 15: Albumin 4.8 g/dL (3.5-5.2 ) 05/13/21 15: Globulin 2.4 g/dL (1.3-4.6 ) 05/13/21 15:22 Salicylates 0.6 mg/dL (3-10) L 05/13/21 15:22 Urine Opiates Scre en Negative ng/mL (N egative) 05/13/21 15:07 Acetaminophen < 5.0 ug/mL (10-3 0) L 05/13/21 15:22 Ur Barbiturates Sc reen Negative ng/mL (N egative) 05/13/21 15:07 Ur Phencyclidine S crn Negative ng/mL (N egative) 05/13/21 15:07 Ur Amphetamines Sc reen Negative ng/mL (N egative) 05/13/21 15:07 U Benzodiazepines Scrn Negative ng/mL (N egative) 05/13/21 15:07 Urine Cocaine Scre en Negative ng/mL (N egative) 05/13/21 15:07 U Marijuana (THC) Screen Negative ng/mL (N egative) 05/13/21 15:07 Ethyl Alcohol < 10 mg/dL (0-10) 05/13/21 15:22 Vitals: Last Vital Signs Temp 97.3 F L 05/16/21 06:00 Pulse 75 05/16/21 06:00 Resp 17 05/16/21 06:00 BP 85/55 05/16/21 06:00 Pulse Ox 97 05/16/21 06:00 Discharge Plan Discharge Patient Disposition: Home Condition: Stable Prescriptions: Continued Seroquel 300 mg tablet 300 mg PO BEDTIME 30 Days Qty: 30 1RF Discharge Orders: Discharge Order (Routine); Ordered 05/16/21 Ordered By: Sam Bond Referrals: Alejandra Farah PMHNP [Staff Physician] - 05/23/21 9:15 am Jeremi Olivas MD [Physician] - 05/18/21 9:30 am Discharge Diet: Regular Discharge Activity: Resume usual activity Patient Instructions: Opioid Safety Discharge Attestations NPU Time Spent in Discharge Care*: less than 30 min Specific Discharge Activities: Specific discharge activities: educating patient, discussing with counseling case manager/social workers/dc planners, documenting/other paperwork and evaluating patient/reviewing data Status at Discharge: Cognitive status at discharge: cognitively intact, Behavioral status at discharge: cooperative, Coding Level of Care Code Acute [facility] DC note Diagnoses Suicidal ideation R45.851 Alcohol dependence, in remission F10.21 Bipolar 2 disorder F31.81 Drug-induced psychotic disorder F19.959 Antisocial personality disorder F60.2
[2021-05-16 11:09] VITALS: BP 85/55; PULSE 75; RESP 17; TEMP 36.3; O2SAT 97
--- NOTE | 2021-05-16 11:39 | DCPLANNER ---
IMM completed on 05/16/21 @ 5681. Pt was given a copy of rights and he stated he understood rights.
== END 2021-05-16 11:18 | disposition home or self-care (01) | DRG 885 ==
LOC: ER 15:53 → NP 16:00
PROVIDERS: Admitting Provider Psychiatry & Neurology Psychiatry; Emergency Provider Emergency Medicine; Visit Provider Psychiatry & Neurology Psychiatry
DX: F31.81 Bipolar II disorder (principal); R45.851 Suicidal ideations; F10.21 Alcohol dependence, in remission; F17.210 Nicotine dependence, cigarettes, uncomplicated; F60.2 Antisocial personality disorder
CPT/HCPCS: 36415; 80053; 80306; 80307; 85025; 97150; 97165; 99285

== ENCOUNTER 2021-06-01 20:53 | Inpatient (IN) | payer MEDICARE, MEDICAID, SELFPAY ==
[2021-06-01 21:10] VITALS: BP 122/87; PULSE 83; RESP 20; TEMP 37.1; O2SAT 98; BMI 32.1
[2021-06-01 21:42] LABS: Add Urine Microscopic? NO; Charge for UA Resulting for Rev
[2021-06-01 21:59] LABS: Bilirubin Urine Neg (Negative); Blood Urine Neg (Negative); Glucose Urine UA Norm (Normal); Ketones Urine Negative (Negative); Leukocyte Esterase Urine Negative (Negative); Nitrate Urine Negative (Negative); Protein Urine Neg (Negative); Urine Appearance Clear (CLEAR); Urine Color Yellow (Yellow); Urobilinogen Urine Norm (Negative); pH Urine 7 (5-7)
[2021-06-01 22:07] LABS: Amphetamines Screen Urine Negative (Negative); Barbiturates Screen Urine Negative (Negative); Benzodiazepines Screen Urine Negative (Negative); Cocaine Screen Urine Negative (Negative); Opiate Screen Urine Negative (Negative); PCP Screen Urine Negative (Negative); THC Screen Urine Negative (Negative)
[2021-06-01 22:20] LABS: Basophils # 0.1 10^3/uL (0.0-0.1); Basophils % 0.7 %; Eosinophils # 0.5 10^3/uL (0.0-0.8); Eosinophils % 4.2 %; Hematocrit 47.6 % (42.0-52.0); Hemoglobin 15.9 g/dL (11.7-16.6); Lymphocytes # 2.5 10^3/uL (0.8-4.8); Lymphocytes % 22.7 %; Mean Corpuscular HGB Conc 33.4 g/dL (30.0-36.0); Mean Corpuscular Hemoglobin 32.4 pg (28.0-34.0); Mean Corpuscular Volume 97.1 fl (80-94); Mean Platelet Volume 9.8 fL (7.4-10.4); Monocytes # 1.2 10^3/uL (0.2-0.9); Monocytes % 10.4 %; Neutrophils # 6.79 10^3/uL (1.8-7.7); Neutrophils % 61.5 %; Nucleated Red Blood Cells % 0 %; Platelet Count 224 10^3/cmm (130-400); Red Cell Distribution Width 13.2 % (12.1-15.1)
[2021-06-01 22:39] LABS: Alanine Aminotransferase 28 U/L (0-41); Alkaline Phosphatase 85 IU/L (40-130); Blood Urea Nitrogen 10 mg/dL (6-20); Calcium 9.7 mg/dL (8.5-10.5); Carbon Dioxide 26 mmol/L (22-29); Chloride 101 mmol/L (98-107); Creatinine Clr Calc Pharmacy 134.2886; Globulin 2.5 g/dL (1.3-4.6); Glomerular Filtration Rate 101.9 mL/min (90-130); Glucose 89 mg/dL (65-115); Osmolality Calculated 287 mOsm/kg (285-295); Salicylate 0.4 mg/dL (3-10); Sodium 139 mmol/L (136-145); Total Bilirubin 0.4 mg/dL (0.15-1.2); Total Protein 7.5 g/dL (6.6-8.7)
[2021-06-01 22:44] LABS: Acetaminophen < 5.0 ug/mL (10-30)
[2021-06-01 22:45] LABS: Alcohol Level < 10 mg/dL (0-10)
[2021-06-01 22:46] LABS: Anion Gap 15.8 (5-19); Aspartate Amino Transferase 35 U/L (0-40); Potassium 3.8 mmol/L (3.5-5.1)
--- NOTE | 2021-06-01 22:47 | ED.C_ITS ---
HPI - Psych General: Chief Complaint: Psychiatric Symptoms Stated Complaint: SI Time Seen by Provider: 06/01/21 21:19 History of Present Illness: 50-year-old male with a history of suicidality. He also has a history of drug-induced psychosis. He has a recent admission to the neuropsychiatric unit at this facility for suicidality. He states he is not taking any medications currently. He does deny use of alcohol or any other substances at this time. He states despite this, he continues to have suicidal thoughts. His plan is to use a rope, or overdose on medication. He denies auditory or visual hallucinations at this time. He presents of his own accord, willing to be admitted complaint: suicidal ideation Onset (ago): day(s) Duration: constant History of same: Yes Relieving factors: none Exacerbating factors: none Associated psychiatric symptoms: depression and suicidal ideation Associated symptoms: Reports suicidal ideation; Deny auditory hallucinations, visual hallucinations, delusions or homicidal ideation Treatments prior to arrival: none If self harm: admits thoughts of self harm and has plan Review of Systems Const: Denies: fever(s) or chills ENMT: Denies: throat pain Card: Denies: chest pain Resp: Denies: dyspnea, productive cough or non-productive cough GI: Denies: abdominal pain, vomiting or diarrhea Skin/Breast: Denies: rash Psych: Reports: suicidal ideation; Denies: visual hallucinations, auditory hallucinations or homicidal ideation [facility] ED PFSH: Medical History Alcohol dependence, in remission Bipolar 2 disorder Psychiatric care Social History Smoking and tobacco status: current every day smoker Physical Exam Const: GENERAL APPEARANCE: cooperative; not ill appearing HENMT: COMMON NORMALS: normocephalic, atraumatic and Normal external nose present HEAD & SCALP: normocephalic and atraumatic FACE & SINUS: normal facial exam NOSE: Normal external nose present and Normal nares present Eye: COMMON NORMALS: Equal, round and reactive pupils present and EOMs intact bilaterally PUPIL: Yes Equal, round and reactive pupils present Chest: COMMONS NORMALS: normal inspection of the chest Resp: COMMON NORMALS: normal respiratory effort, No use of accessory muscles and clear to auscultation bilaterally AUSCULTATION: clear to auscultation bilaterally Cardio: COMMON NORMALS: regular rate and regular rhythm RATE: regular rate RHYTHM: regular rhythm GI: COMMON NORMALS: Normal to inspection, nondistended, normoactive bowel sounds present, Soft to palpation and non-tender PALPATION: Yes Soft to palpation Neuro: YOLIE COMA SCALE: document GCS findings Yolie coma scale eye opening: Spontaneous Yolie coma scale verbal response: Orientated [place] coma scale motor response: Obey commands Yolie coma scale total score: 15 Psych: COMMON NORMALS: Normal thought process present and speech normal ATTITUDE: Yes calm ACTIVITY/MOTOR BEHAVIOR: Yes appropriate eye contact and Yes fidgeting (Mildly) SPEECH: Yes normal speech MOOD & AFFECT: Yes depressed mood THOUGHT PROCESS: Normal thought process present THOUGHT CONTENT: Yes Suicidality present, No delusions and No Hallucination(s) present ATTENTION/CONCENTRATION: Yes attention grossly intact MEMORY/COGNITION: Yes memory grossly intact and Yes cognition grossly intact INSIGHT: Fair insight present (Psych) JUDGEMENT: Fair judgement present (Psych) Course Consultations: Consultation #1: av Time: 23:14 Vital Signs: Vital signs: Vital Signs Temperature 98.7 F 06/01/21 21:10 Pulse Rate 83 06/01/21 21:10 Respiratory Rate 20 H 06/01/21 21:10 Blood Pressure 122/87 06/01/21 21:10 Pulse Oximetry 98 06/01/21 21:10 [facility] - Psych Medical Decision Making 50-year-old male well-known to the neuropsychiatry in the emergency departments. He presents with suicidal ideations, stating his plan would be to use a rope, and/or overdose on medication. He has been off of his psychiatric medication. He, though, has not been using alcohol or other substances. He denies hallucinations. Spoke with psychiatry. Medically he appears fine and will be cleared. Will admit to psychiatry for further evaluation. Lab Data : 06/01/21 21:57 06/01/21 21:57 Laboratory Results WBC 11.0 10^3/uL (4.0-10.0) H 06/01/21 21:57 RBC 4.90 10^6/uL (4.1-5.3) 06/01/21 21:57 Hgb 15.9 g/dL (11.7-16.6) 06/01/21 21:57 Hct 47.6 % (42.0-52.0) 06/01/21 21:57 MCV 97.1 fl (80-94) H 06/01/21 21:57 MCH 32.4 pg (28.0-34.0) 06/01/21 21:57 MCHC 33.4 g/dL (30.0-36.0) 06/01/21 21:57 RDW 13.2 % (12.1-15.1) 06/01/21 21:57 Plt Count 224 10^3/cmm (130-400) 06/01/21 21:57 MPV 9.8 fL (7.4-10.4) 06/01/21 21:57 Neut % (Auto) 61.5 % 06/01/21 21:57 Lymph % (Auto) 22.7 % 06/01/21 21:57 [place] % (Auto) 10.4 % 06/01/21 21:57 Eos % (Auto) 4.2 % 06/01/21 21:57 Baso % (Auto) 0.7 % 06/01/21 21:57 Neut # (Auto) 6.79 10^3/uL (1.8-7.7) 06/01/21 21:57 Lymph # (Auto) 2.5 10^3/uL (0.8-4.8) 06/01/21 21:57 [place] # (Auto) 1.2 10^3/uL (0.2-0.9) H 06/01/21 21:57 Eos # (Auto) 0.5 10^3/uL (0.0-0.8) 06/01/21 21:57 Baso # (Auto) 0.1 10^3/uL (0.0-0.1) 06/01/21 21:57 Nucleated RBC % (auto) 0 % 06/01/21:57 Nucleated RBCs # 0.0 /100WBC 06/01/21 21:57 Sodium 139 mmol/L (136-145) 06/01/21 21:57 Potassium 3.8 mmol/L (3.5-5.1) 06/01/21 21:57 Chloride 101 mmol/L (98-107) 06/01/21 21:57 Carbon Dioxide 26 mmol/L (22-29) 06/01/21 21:57 Anion Gap 15.8 (5-19) 06/01/21 21:57 BUN 10 mg/dL (6-20) 06/01/21 21:57 Creatinine 0.8 mg/dL (0.7-1.2) 06/01/21 21:57 GFR Calculation 101.9 mL/min (90-130) 06/01/21 21:57 Glucose 89 mg/dL (65-115) 06/01/21 21:57 Calculated Osmolality 287 mOsm/kg (285-295) 06/01/21 21:57 Calcium 9.7 mg/dL (8.5-10.5) 06/01/21 21:57 Total Bilirubin 0.4 mg/dL (0.15-1.2) 06/01/21 21: AST 35 U/L (0-40) 06/01/21 21: ALT 28 U/L (0-41) 06/01/21 21:57 Alkaline Phosphatase 85 IU/L (40-130) 06/01/21 21:57 Total Protein 7.5 g/dL (6.6-8.7) 06/01/21 21: Albumin 5.0 g/dL (3.5-5.2) 06/01/21 21: Globulin 2.5 g/dL (1.3-4.6) 06/01/21 21:57 Urine Color Yellow (Yellow) 06/01/21 21:30 Urine Appearance Clear (CLEAR) 06/01/21 21: Urine pH 7 (5-7) 06/01/21 21:30 Ur Specific [place] 1.010 (1.005-1.030) 06/01/21 21: Urine Protein Neg (Negative) 06/01/21 21:30 Urine Glucose (UA) Norm (Normal) 06/01/21 21: Urine Ketones Negative (Negative) 06/01/21 21: Urine Blood Neg (Negative) 06/01/21: Urine Nitrate Negative (Negative) 06/01/21 21: Urine Bilirubin Neg (Negative) 06/01/21 21: Urine Urobilinogen Norm mg/dL (Negative) 06/01/21 21: Ur Leukocyte Esterase Negative (Negative) 06/01/21 21: Salicylates 0.4 mg/dL (3-10) L 06/01/21 21:57 Urine Opiates Screen Negative ng/mL (Negative) 06/01/21 21:30 Acetaminophen < 5.0 ug/mL (10-30) L 06/01/21 21:57 Ur Barbiturates Screen Negative ng/mL (Negative) 06/01/21 21:30 Ur Phencyclidine Scrn Negative ng/mL (Negative) 06/01/21 21:30 Ur Amphetamines Screen Negative ng/mL (Negative) 06/01/21 21:30 U Benzodiazepines Scrn Negative ng/mL (Negative) 06/01/21 21:30 Urine Cocaine Screen Negative ng/mL (Negative) 06/01/21 21:30 U Marijuana (THC) Screen Negative ng/mL (Negative) 06/01/21 21:30 Ethyl Alcohol < 10 mg/dL (0-10) 06/01/21 21:57 Discharge Plan Discharge Patient Disposition: Admitted As Inpatient Admit Provider: Sam Bond Clinical Impression: Suicidal ideation Condition: Stable Coding Level of Care Code ED 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
[2021-06-01 23:35] VITALS: BMI 32.1
[2021-06-02 00:45] VITALS: BP 124/82; PULSE 83; RESP 16; O2SAT 100
[2021-06-02 01:40] VITALS: BP 126/84; PULSE 55; RESP 18; O2SAT 100
--- NOTE | 2021-06-02 01:52 | PC.ADMIT ---
[address] Admission Note: patient presents to ED for SI with a plan, states he wants to OD or hang himself. he also reports anger issues that he does not know the cause of, states I am fed up, pissed off and I don't know why . denies abuse history. denies hallucinations. patient is a recovering alcoholic and has been sober for 90 days and is doing well with this. patient reports he takes Seroquel 300mg at bedtime at home, recently not been taking it because he is wary of taking meds but is adamant to start taking again in the hospital because it helps him sleep. patient is not taking any other medication currently. patient denies HI, hallucinations, drug abuse. patient was recently admitted here in early may. he does report a suicide attempt 7 years ago in which he stayed outside in the cold for hours trying to freeze to . patient reports frustration with his suicidal thoughts because it impairs his ability to function and quality of life and he doesn't know why these thoughts seem to come out of nowhere, patient reports shame for these feelings. patient is a good historian, reports he has 2 sons that are his support system, his affect is anxious. The patient,Emil Castro,50 y/o, was given written information regarding hospital policies, unit procedures and contact persons. Patient's smoking status: current every day smoker. Vital Signs - 8 hr 06/01/21 21:10 06/02/21 00:45 06/02/21 01:40 Temperature 98.7 F Pulse Rate 83 83 55 L Respiratory Rate 20 H 16 18 Blood Pressure 122/87 124/82 126/84 Pulse Oximetry 98 100 100
[2021-06-02] MEDS: quetiapine 300 mg Tablet PO ×2 (02:23→20:33)
[2021-06-02 06:00] VITALS: BP 101/63; PULSE 65; RESP 16; TEMP 36.8; O2SAT 99
--- NOTE | 2021-06-02 09:20 | P.NPUHP_ITS ---
Providers/Chief Complaint Admitting Physician: aSm Bond MD Chief Complaint: SI HPI NPU History of Present Illness Emil Castro is a 50 year old male who presented to the emergency department with the following report: Chief Complaint: Psychiatric Symptoms Stated Complaint: SI Time Seen by Provider: 06/01/21 21:19 History of Present Illness:?? 50-year-old male with a history of suici dality.? He also has a history of drug-induced psychosis.? He has a recent admission to the neuropsychiatric unit at this facility for suicidality.? He states he is not taking any medications currently.? He does deny use of alcohol or any other substances at this time.? He states despite this, he continues to have suicidal thoughts.? His plan is to use a rope, or overdose on medication.? He denies auditory or visual hallucinations at this time.? He presents of his own accord, willing to be admitted complaint: suicidal ideation Onset (ago): day(s) Duration: constant History of same: Yes Relieving factors: none Exacerbating factors: none Associated psychiatric symptoms: depression and suicidal ideation Associated symptoms: Reports suicidal ideation; Deny auditory hallucinations, visual hallucinations, delusions or homicidal ideation Treatments prior to arrival: none If self harm: admits thoughts of self harm and has plan He was admitted to the neuropsychiatric unit for definitive treatment of those issues. He presents today continuing on the recent theme of sobriety and not having anything in his system when he comes to the hospital which is quite divergence from previous hospitalizations which have been many. He reports that he has not necessarily been at the [facility] and is unclear about his stability in the [facility] program. He reports that he had not been taking his medication but he did restart the medication here. We once again reviewed with him as we did in his last hospitalization that we will likely take something more than Seroquel to break the cycle and he reportedly would consider it. He denies any additional changes since his last hospitalization and we discussed having the [facility] program come by on Friday. We discussed the risk-benefit alternatives of initiating an additional antipsychotic and he understood and agreed proceed as is documented in this note, specifically reporting that he will think about it. Per his 05/14/2021 [facility] inpatient psychiatric evaluation: History of Present Illness Emil Castro is a 50 year old male who presented to the emergency department the following report: Chief Complaint: Psychiatric Symptoms Stated Complaint: SI Time Seen by Provider: 05/13/21 15:04 Source: patient Mode of arrival: ambulatory Limitations: no limitations? ? History of Present Illness:??? 50-year-old male who has a history of bi polar disorder along with suicidality in the past.? He states he has been having increasing depression and hallucinations especially auditory hallucinations the last 2 to 3 days.? He states he has not been taking his medicine he has been having suicidal thoughts.? He wants to get out.? He denies any worsening improving factors.? Denies any attempts.Associated symptoms: Reports auditory hallucinations, depression and suicidal ideation He was admitted to the neuropsychiatric unit for definitive treatment of those issues.? 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 He was last discharged on March 11, 2021 he was started in the [facility] program recently.? He had regular [facility] follow-up.? He had a psychiatric evaluation on 05/07/2021 and then was engaged by [facility] program and reports that he has been sober for about 60 days, he recently lost his brother about 4 months ago, he reports he moved closer to this region from [place] which he reports was really bad.? He reports that he is now the [facility] and that has been better but in the last few days he reports that he has struggled with suicidal thoughts.? He reports that he has been taking his medication which was only Seroquel 300 mg p.o. nightly he reports that for what ever reason he has been feeling more suicidal and less stable over the past few days.? We discussed the risk-benefit alternatives of continuing his current medication and he understood agreed proceed as is documented in this note.? We also discussed the prospect of getting started on antidepressant but though he endorsed feeling suicidal he denied being depressed.? The only substantive changes that he reports since his last hospitalization is that he no longer lives in [place] and that he reports he been sober for 2 months and his UDS was negative for substances of abuse.? An excerpt of his 2020 [facility] inpatient psychiatric evaluation is included below for context. Per his 03/08/2021 [facility] inpatient psychiatric evaluation: History of Present Illness Emil Castro is a 50 year old male who presented to the emergency department with the following report: Chief Complaint: Psychiatric Symptoms Stated Complaint: si Time Seen by Provider: 03/07/21 19:35 Source: patient Mode of arrival: ambulatory Limitations: no limitations History of Present Illness:?? HPI Narrative: 50-year-old male who is here for suicidal ideation. He states he been having suicidal thoughts over the last 10 days. He states that increased agitation has been hearing voices states that he does want to kill himself and has a plan of jumping in front of a semitruck. He also admits to chronic meth use with meth use recently as well. Denies any worst improving factors. Associated symptoms: Reports auditory hallucinations, depression and suicidal ideation. He was made to the neuropsychiatric unit for the treatment of those issues.? Is well-known to this unit secondary to multiple things hospitalizations.? He presents today much like his previous hospitalizations is a fairly resistant historian.? Today it seems more likely that is secondary to withdrawal from methamphetamine causing him to have some confusion, increased somnolence and some irritability.? His answers to questions are generalities not specifics but at this point it seems more a product of his intoxication/withdrawal that it does volitional behavior.? He gave some report of being in [place] since his discharge in April of this year then returning here recently but he had no reasons for why he went to [place], what he was doing there, why he returned here, what his recovery has been like.? He can give no helpful information about when he last took medication, what he was taking for sure, but he reports taking Seroquel and Klonopin.? Of course we discussed Klonopin not being a great idea overall for someone with such significant addiction.? He did not give any real information about where he has been living, how he has been providing for himself, any other drug and alcohol or mental health services being utilized the last 10 months.? We agreed we would investigate some of this information and hopefully determine what he has been doing and how we can help.? An excerpt from his 04/30/2020 discharge summary is included below for context. Meds NPU Home Medications Medication Instructions Recorded Confirmed Last Taken Type quetiapine 300 mg tablet (Seroquel) 300 mg PO BEDTIME 30 Days #30 tab 05/16/21 Unknown Rx quetiapine 300 mg tablet 300 mg PO BEDTIME 06/02/21 06/02/21 Unknown History Allergies Allergy/AdvReac Type Severity Reaction Status Date / Time Penicillins Allergy ALGY-Hives Verified 05/07/21 11:40 PFSH NPU PFSH: Medical History Alcohol dependence, in remission Bipolar 2 disorder Psychiatric care Social History Smoking and tobacco status: current every day smoker Mental Status Exam MSE Comments: This is an obese white male in hospital scrubs with limited grooming and eye contact.? No abnormal movements except for mild psychomotor retardation.? Mostly cooperative with exam in no acute distress.? Speech was limited and mostly normal rate and decreased volume.? Mood described as okay, affect congruent.? Thought process mostly organized.? Thought content: Patient endorsed suicidal but denied homicidal ideation, there were no delusions reported or noted, he endorsed auditory but denied visual hallucinations.? Attention and concentration were limited and memory was mostly reliable but none were formally tested.? He is alert and oriented x3.? Insight and judgment are impaired, impulse control is impaired. Vitals/I&O/Wt Last Vital Signs Temp 98.3 F 06/02/21 06:00 Pulse 65 06/02/21 06:00 Resp 16 06/02/21 06:00 BP 101/63 06/02/21 06:00 Pulse Ox 99 06/02/21 06:00 Weight last 48 hrs Weight 104.326 kg Weight 104.326 kg Data NPU : 06/01/21 21:57 06/01/21 21:57 A&P Assessment and plan (1) Suicidal ideation: Status: Acute (2) Alcohol dependence, in remission: Status: Acute (3) Drug-induced psychotic disorder: Status: Acute (4) Malingering: Status: Acute (5) Antisocial personality disorder: Status: Chronic (6) Depressed bipolar I disorder: Status: Resolved Plan This is a 50-year-old white male with a long history of multiple inpatient hospitalizations often with concerns for malingering who presents today as a member of the [facility] but unclear [id number] with continued sobriety but with suicidal ideation. 1.? Continue current medication.? We discussed the possibility of starting a different antipsychotic tomorrow. 2.? Continue every 15 minute checks for safety. 3.? Encourage individual, group and milieu therapies. 4.? Encourage sober living treatment after discharge at the highest level of care to which he is willing to commit. Involuntary Hold Information 96 Hour Hold: 96 Hour Involuntary Admission: No 96 Hour Hold Ending Date: 05/18/21 96 Hour Hold Ending Time: 00:01 Attestations NPU Medical Necessity Statement*: Inpatient hospitalization is medically necessary and the clinically appropriate intervention at this time.? We will monitor medications and make changes as indicated.? Patient will be in the hospital for over two midnights.? Likely length of stay 3-5 days. Coding Level of Care Code Acute Plant Control Aide for Wilder Fwd Diagnoses Suicidal ideation R45.851 Alcohol dependence, in remission F10.21 Drug-induced psychotic disorder F19.959 Malingering Z76.5 Antisocial personality disorder F60.2 Depressed bipolar I disorder F31.9
[2021-06-02 14:00] VITALS: BP 112/69; PULSE 74; RESP 16; TEMP 36.3; O2SAT 98
[2021-06-02 22:00] VITALS: BP 95/61; PULSE 76; RESP 16; TEMP 36.9; O2SAT 97
[2021-06-03 06:00] VITALS: BP 119/81; PULSE 83; RESP 18; TEMP 36.7; O2SAT 99; BMI 33.7
--- NOTE | 2021-06-03 12:39 | PC.NURSE ---
Pt sleeping upon entering room. Denies SI. States he does have some homicidal thoughts. Refuses to identify person in mind. States the male's girlfriend was seen in his presence and he has been giving the pt a difficulty time since. Pt states he ignores him but can take care of himself if needed. Pleasant and denies pain.
[2021-06-03 14:00] VITALS: BP 142/81; PULSE 80; RESP 16; TEMP 36.7; O2SAT 97
[2021-06-03] MEDS: hyDROXYzine 25 mg Capsule 50 MG PO (16:33)
--- NOTE | 2021-06-03 16:36 | PC.NURSE ---
PRN VISTARIL 50 MG GIVEN PO PER PT C/O STATED ANXIETY
--- NOTE | 2021-06-03 17:38 | W.PM.NPUPNS ---
Subjective NPU Subjective: Emil presents today reporting that he is doing okay continue to be somewhat resistant to any changes in his medication. He is not feeling he is being more irritable than baseline at this poem writer does. We agreed that he would work with the [facility] staff to find out what they have experienced recently with him collateral information today. We can gain a full understanding of the circumstance currently as he is not necessarily clear/able to articulate exactly what has happened. Mental Status Exam MSE Comments: This is an? obese white male in hospital scrubs with limited grooming and eye contact.? No abnormal movements except for mild psychomotor retardation.? Mostly cooperative with exam in mild distress.? Speech was limited and mostly normal rate and decreased volume.? Mood described as okay, affect irritable.? Thought process mostly organized.? Thought content: Patient endorsed suicidal but denied homicidal ideation, there were no delusions reported or noted, he endorsed auditory but denied visual hallucinations.? Attention and concentration were limited and memory was mostly reliable but none were formally tested.? He is alert and oriented x3.? Insight and judgment are impaired, impulse control is impaired. Vitals/I&O/Wt Last Vital Signs Temp 98.0 F 06/03/21 14:00 Pulse 80 06/03/21 14:00 Resp 16 06/03/21 14:00 BP 142/81 06/03/21 14:00 Pulse Ox 97 06/03/21 14:00 Weight last 48 hrs Weight 109.769 kg Weight 104.326 kg Weight 104.326 kg Data NPU : 06/01/21 21:57 06/01/21 21:57 A&P Assessment and plan (1) Suicidal ideation: Status: Acute (2) Alcohol dependence, in remission: Status: Acute (3) Drug-induced psychotic disorder: Status: Acute (4) Malingering: Status: Acute (5) Antisocial personality disorder: Status: Chronic (6) Depressed bipolar I disorder: Status: Resolved Plan This is a 50-year-old white male with a long history of multiple inpatient hospitalizations often with concerns for malingering who presents today as a member of the [facility] program but unclear if he is staying in [facility] with continued sobriety but with suicidal ideation. 1.? Continue current medication.? We discussed the possibility of starting a different antipsychotic tomorrow. 2.? Continue every 15 minute checks for safety. 3.? Encourage individual, group and milieu therapies. 4.? Encourage sober living treatment after discharge at the highest level of care to which he is willing to commit. 5. We will attempt to connect with the ERE program for more clear understanding of Emil's circumstances and recent behaviors. Involuntary Hold Information 96 Hour Hold: 96 Hour Involuntary Admission: No 96 Hour Hold Ending Date: 05/18/21 96 Hour Hold Ending Time: 00:01 Attestations NPU Medical Necessity Statement*: Inpatient hospitalization is medically necessary and the clinically appropriate intervention at this time.? We will monitor medications and make changes as indicated.? Likely length of stay 2-4 days. Coding Level of Care Code Acute Supervisor Adult Education for g Fwd Diagnoses Suicidal ideation R45.851 Alcohol dependence, in remission F10.21 Drug-induced psychotic disorder F19.959 Malingering Z76.5 Antisocial personality disorder F60.2 Depressed bipolar I disorder F31.9
[2021-06-03] MEDS: quetiapine 300 mg Tablet PO (20:05)
[2021-06-03 20:25] VITALS: BP 120/74; PULSE 75; RESP 19; TEMP 36.8; O2SAT 99
[2021-06-03] MEDS: calcium carbonate 500 mg Chew Tablet 1000 MG PO (23:50)
[2021-06-04 06:00] VITALS: BP 124/74; PULSE 80; RESP 18; TEMP 36.6; O2SAT 98
[2021-06-04] MEDS: nicotine 2 mg Gum BUCCAL (10:28)
[2021-06-04] MEDS: nicotine 21 mg Patch 1 PATCH TRANSDERMA (13:07)
[2021-06-04] MEDS: hyDROXYzine 25 mg Capsule 50 MG PO (16:27)
--- NOTE | 2021-06-04 16:28 | PC.NURSE ---
PRN VISTARIL 50 MG GIVEN PO PER PT C/O STATED ANXIETY. NO OUTWARD S/S OF ANXIETY NOTED, PT WAS PREVIOUSLY ASLEEP IN ROOM
--- NOTE | 2021-06-04 16:30 | PC.NURSE ---
PRN MED PT GIVEN 50MG VISTARIL FOR STATED ANXIETY, WILL CONTINUE TO MONITOR.
--- NOTE | 2021-06-04 17:34 | W.PM.NPUPNS ---
Subjective NPU Subjective: Patient presents today reporting that he is open to going to [employer] even if he needs to pay. He reports that he is on disability and does get some money. He reports that [employer] was fine however he has been camping out on his own because he got very frustrated that he would follow through on the requirements Cook and clean and assisted around the house but that other people were doing this chair and he felt like they were using. He reports he does not mind working or contributing like he does at [employer] but he does not like being in situations with other people are not doing their fair share of the work. 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 Mental Status Exam MSE Comments: This is an? obese white male in hospital scrubs with adequate grooming and eye contact.? No abnormal movements except for mild psychomotor retardation.? Cooperative with exam in no acute distress.? Speech was more normal rate and volume.? Mood described as okay, affect congruent and improving.? Thought process mostly organized.? Thought content: Patient denied suicidal or homicidal ideation, there were no delusions reported or noted, he denied auditory or visual hallucinations.? Attention and concentration were limited and memory was mostly reliable but none were formally tested.? He is alert and oriented x3.? Insight and judgment are limited but improving, impulse control is limited. Vitals/I&O/Wt Last Vital Signs Temp 98.9 F 06/04/21 20:32 Pulse 75 06/04/21 20:32 Resp 20 H 06/04/21 20:32 BP 115/81 06/04/21 20:32 Pulse Ox 99 06/04/21 20:32 Weight last 48 hrs Weight 109.769 kg Data NPU : 06/01/21 21:57 06/01/21 21:57 A&P Assessment and plan (1) Suicidal ideation: Status: Acute (2) Alcohol dependence, in remission: Status: Acute (3) Antisocial personality disorder: Status: Chronic (4) Malingering: Status: Acute (5) Depressed bipolar I disorder: Status: Resolved Plan This is a 50-year-old white male with a long history of multiple inpatient hospitalizations often with concerns for malingering who presents today as a member of the [facility] program but unclear if he is staying in [facility] with continued sobriety but with suicidal ideation. 1.? Continue current medication.? We discussed the possibility of starting a different antipsychotic tomorrow. 2.? Continue every 15 minute checks for safety. 3.? Encourage individual, group and milieu therapies. 4.? Encourage sober living treatment after discharge at the highest level of care to which he is willing to commit. 5.? We will attempt to connect with the ERE program for more clear understanding of Emil's circumstances and recent behaviors. Involuntary Hold Information 96 Hour Hold: 96 Hour Involuntary Admission: No 96 Hour Hold Ending Date: 05/18/21 96 Hour Hold Ending Time: 00:01 Attestations NPU Medical Necessity Statement*: Inpatient hospitalization is medically necessary and the clinically appropriate intervention at this time.? We will monitor medications and make changes as indicated.? Likely length of stay 1-3 days. Coding Level of Care Code Acute Shop Lead for Wilder Fwd Diagnoses Suicidal ideation R45.851 Alcohol dependence, in remission F10.21 Antisocial personality disorder F60.2 Malingering Z76.5 Depressed bipolar I disorder F31.9
[2021-06-04] MEDS: calcium carbonate 500 mg Chew Tablet 1000 MG PO (18:53)
--- NOTE | 2021-06-04 18:58 | PC.NURSE ---
PRN TUMS 1000 MG CHEWABLE GIVEN PO PER PT C/O INDIGESTION
[2021-06-04 20:32] VITALS: BP 115/81; PULSE 75; RESP 20; TEMP 37.2; O2SAT 99
[2021-06-04] MEDS: quetiapine 300 mg Tablet PO (20:47)
[2021-06-05 06:00] VITALS: RESP 17
--- NOTE | 2021-06-05 10:15 | DCPLANNER ---
IMM completed with pt on 06/05/32 @ [id number]. Pt was given a copy of rights and he stated he understood his rights.
--- NOTE | 2021-06-05 10:30 | W.PM.NPUDCS ---
Diagnoses at Discharge Discharge Diagnosis (1) Suicidal ideation: Status: Resolved (2) Alcohol dependence, in remission: Status: Acute (3) Antisocial personality disorder: Status: Chronic (4) Malingering: (5) Depressed bipolar I disorder: Status: Resolved Permanent problem details: Patient does not name and get his prescriptions filled when discharged. I am discontinuing all his meds and referring him to outpatient follow-up. Reason for Visit Reason for Visit: SI Brief History: History of Present Illness Emil Castro is a 50 year old male who presented to the emergency department with the following report: Chief Complaint: P sychiatric Symptom s Stated Complaint : SI Time Seen by Provider: 06/01/21 21:19? ? History of Present Illness:??? 50-year-old male with a history of suicidality.? 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 He has a recent admission to the neuropsychi atric unit at this facility for suic idality.? He state s he is not taking any medications c urrently.? He does deny use of alcoh ol or any other lee bstances at this t rathur.? He states de spite this, he con tinues to have rupinder cidal thoughts.? H is plan is to use a rope, or overdos e on medication.? He denies auditory or visual halluci nations at this ti me.? He presents o f his own accord, willing to be admi ttedMD complaint: suicidal ideation Onset (ago): day(s ) Duration: consta nt History of same : Yes Relieving fa ctors: none Exacer bating factors: no ne Associated psyc hiatric symptoms: depression and rupinder cidal ideation Ass ociated symptoms: Reports suicidal i deation; Deny areli tory hallucination s, visual hallucin ations, delusions or homicidal ideat ion Treatments ese or to arrival: non e If self harm: ad [place] thoughts of s elf harm and has p erica He was admitted to the neuropsychiatric unit for definitive treatment of those issues.? He presents today continuing on the recent theme of sobriety and not having anything in his system when he comes to the hospital which is quite divergence from previous hospitalizations which have been many.? He reports that he has not necessarily been at the [facility] and is unclear about his stability in the [facility].? He reports that he had not been taking his medication but he did restart the medication here.? We once again reviewed with him as we did in his last hospitalization that we will likely take something more than Seroquel to break the cycle and he reportedly would consider it.? He denies any additional changes since his last hospitalization and we discussed having the [facility] program come by on Friday.? We discussed the risk-benefit alternatives of initiating an additional antipsychotic and he understood and agreed proceed as is documented in this note, specifically reporting that he will think about it. Per his 05/14/2021 [facility] inpatient psychiatric evaluation: History of Present Illness Emil Castro is a 50 year old male who presented to the emergency department the following report: Chief Complaint: P sychiatric Symptom s Stated Complaint : SI Time Seen by Provider: 05/13/21 15:04 Source: lauren shearer Mode of arriv al: ambulatory [place] itations: no limit ations?? ? History of Present Illness:? 50-year-old male who has a history of bipolar disorde r along with suici dality in the past .? He states he donaldson s been having incr easing depression and hallucinations especially audito ry hallucinations the last 2 to 3 da ys.? He states he has not been takin g his medicine he has been having lee icidal thoughts.? He wants to get ou t.? He denies any worsening improvin g factors.? Denies any attempts.Asso ciated symptoms: R eports auditory donaldson llucinations, depr ession and suicida l ideation He was admitted to the neuropsychiatric unit for definitive treatment of those issues.? 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 He was last discharged on March 11, 2021 he was started in the [facility] recently.? He had regular [facility] follow-up.? He had a psychiatric evaluation on 05/07/2021 and then was engaged by [facility] program and reports that he has been sober for about 60 days, he recently lost his brother about 4 months ago, he reports he moved closer to this region from [place] which he reports was really bad.? He reports that he is now the [employer] and that has been better but in the last few days he reports that he has struggled with suicidal thoughts.? He reports that he has been taking his medication which was only Seroquel 300 mg p.o. nightly he reports that for what ever reason he has been feeling more suicidal and less stable over the past few days.? We discussed the risk-benefit alternatives of continuing his current medication and he understood agreed proceed as is documented in this note.? We also discussed the prospect of getting started on antidepressant but though he endorsed feeling suicidal he denied being depressed.? The only substantive changes that he reports since his last hospitalization is that he no longer lives in [place] and that he reports he been sober for 2 months and his UDS was negative for substances of abuse.? An excerpt of his 2020 [facility] inpatient psychiatric evaluation is included below for context. Per his 03/08/2021 [facility] inpatient psychiatric evaluation: History of Present Illness Emil Castro is a 50 year old male who presented to the emergency department with the following report: Chief Complaint: Psychiatric Symptoms Stated Complaint: si Time Seen by Provider: 03/07/21 19:35 Source: patient Mode of arrival: ambulatory Limitations: no limitations History of Present Illness:?? HPI Narrative: 50-year-old male who is here for suicidal ideation. He states he been having suicidal thoughts over the last 10 days. He states that increased agitation has been hearing voices states that he does want to kill himself and has a plan of jumping in front of a semitruck. He also admits to chronic meth use with meth use recently as well. Denies any worst improving factors. Associated symptoms: Reports auditory hallucinations, depression and suicidal ideation. He was made to the neuropsychiatric unit for the treatment of those issues.? Is well-known to this unit secondary to multiple things hospitalizations.? He presents today much like his previous hospitalizations is a fairly resistant historian.? Today it seems more likely that is secondary to withdrawal from methamphetamine causing him to have some confusion, increased somnolence and some irritability.? His answers to questions are generalities not specifics but at this point it seems more a product of his intoxication/withdrawal that it does volitional behavior.? He gave some report of being in [place] since his discharge in April of this year then returning here recently but he had no reasons for why he went to [place], what he was doing there, why he returned here, what his recovery has been like.? He can give no helpful information about when he last took medication, what he was taking for sure, but he reports taking Seroquel and Klonopin.? Of course we discussed Klonopin not being a great idea overall for someone with such significant addiction.? He did not give any real information about where he has been living, how he has been providing for himself, any other drug and alcohol or mental health services being utilized the last 10 months.? We agreed we would investigate some of this information and hopefully determine what he has been doing and how we can help.? An excerpt from his 04/30/2020 discharge summary is included below for context. Hospital Course Hospital Course He quickly acclimated to the individual, group and milieu therapies provided. With a fairly large data set on this patient this was clearly the most insightful and clear thinking he has appeared. Initially it seemed like similar behaviors in the past however he had very clear reasoning behind his choices and seemed to be very invested in continue to move forward, hopefully get gainful employment and continue with his recovery. He had marked improvement during the stay and was able to contract for safety outside the hospital prior to discharge. During the hospitalization, patient had routine laboratory studies which were within normal limits except for few outliers. Additionally there was a general medical evaluation which was also within normal limits and revealed no new acute processes. Discharge Summary: At the time of discharge, he denied psychosis or lethality. Mood and anxiety were well managed. Patient endorsed a plan to avoid all drugs of abuse and follow-up with the aftercare recommendations of the treatment team. Patient was evaluated and deemed to be absent credible lethality, and had achieved the maximum benefit from an inpatient hospitalization, so was discharged. Involuntary Hold Information 96 Hour Hold: 96 Hour Involuntary Admission: No 96 Hour Hold Ending Date: 05/18/21 96 Hour Hold Ending Time: 00:01 Mental Status Exam MSE Comments: This is an? obese white male in hospital scrubs with adequate grooming and eye contact.? No abnormal movements except for mild psychomotor retardation.? Cooperative with exam in no acute distress.? Speech was more normal rate and volume.? Mood described as okay, affect congruent.? Thought process mostly organized.? Thought content: Patient denied suicidal or homicidal ideation, there were no delusions reported or noted, he denied auditory or visual hallucinations.? Attention and concentration were limited and memory was mostly reliable but none were formally tested.? He is alert and oriented x3.? Insight and judgment are fair, impulse control is limited. Discharge Data Studies Completed and Pending: Laboratory Results WBC 11.0 10^3/uL (4.0 -10.0) H 06/01/21 21:57 RBC 4.90 10^6/uL (4.1 -5.3) 06/01/21 21:57 Hgb 15.9 g/dL (11.7-1 6.6) 06/01/21 21:57 Hct 47.6 % (42.0-52.0 ) 06/01/21 21:57 MCV 97.1 fl (80-94) H 06/01/21 21:57 MCH 32.4 pg (28.0-34. 0) 06/01/21 21:57 MCHC 33.4 g/dL (30.0-3 6.0) 06/01/21 21:57 RDW 13.2 % (12.1-15.1 ) 06/01/21 21:57 Plt Count 224 10^3/cmm (130 -400) 06/01/21 21:57 MPV 9.8 fL (7.4-10.4) 06/01/21 21:57 Neut % (Auto) 61.5 % 06/01/21 21:57 Lymph % (Auto) 22.7 % 06/01/21 21:57 [place] % (Auto) 10.4 % 06/01/21 21:57 Eos % (Auto) 4.2 % 06/01/21 21:57 Baso % (Auto) 0.7 % 06/01/21 21:57 Neut # (Auto) 6.79 10^3/uL (1.8 -7.7) 06/01/21 21:57 Lymph # (Auto) 2.5 10^3/uL (0.8- 4.8) 06/01/21 21:57 [place] # (Auto) 1.2 10^3/uL (0.2- 0.9) H 06/01/21 21:57 Eos # (Auto) 0.5 10^3/uL (0.0- 0.8) 06/01/21 21:57 Baso # (Auto) 0.1 10^3/uL (0.0- 0.1) 06/01/21 21:57 Nucleated RBC % (a uto) 0 % 06/01/21 21: Nucleated RBCs # 0.0 /100WBC 06/01/21 21:57 Sodium 139 mmol/L (136-1 45) 06/01/21 21:57 Potassium 3.8 mmol/L (3.5-5 .1) 06/01/21 21:57 Chloride 101 mmol/L (98-10 7) 06/01/21 21:57 Carbon Dioxide 26 mmol/L (22-29) 06/01/21 21:57 Anion Gap 15.8 (5-19) 06/01/21 21:57 BUN 10 mg/dL (6-20) 06/01/21 21:57 Creatinine 0.8 mg/dL (0.7-1. 2) 06/01/21 21:57 GFR Calculation 101.9 mL/min (90- 130) 06/01/21 21: Glucose 89 mg/dL (65-115) 06/01/21 21:57 Calculated Osmolal ity 287 mOsm/kg (285- 295) 06/01/21 21: Calcium 9.7 mg/dL (8.5-10 .5) 06/01/21 21:57 Total Bilirubin 0.4 mg/dL (0.15-1 .2) 06/01/21 21:57 AST 35 U/L (0-40) 06/01/21 21:57 ALT 28 U/L (0-41) 06/01/21 21:57 Alkaline Phosphata se 85 IU/L (40-130) 06/01/21 21: Total Protein 7.5 g/dL (6.6-8.7 ) 06/01/21 21:57 Albumin 5.0 g/dL (3.5-5.2 ) 06/01/21 21: Globulin 2.5 g/dL (1.3-4.6 ) 06/01/21 21:57 Urine Color Yellow (Yellow) 06/01/21 21:30 Urine Appearance Clear (CLEAR) 06/01/21 21:30 Urine pH 7 (5-7) 06/01/21 21:30 Ur Specific Gravit y 1.010 (1.005-1.0 30) 06/01/21 21: Urine Protein Neg (Negative) 06/01/21 21:30 Urine Glucose (UA) Norm (Normal) 06/01/21 21:30 Urine Ketones Negative (Negati ve) 06/01/21 21:30 Urine Blood Neg (Negative) 06/01/21 21:30 Urine Nitrate Negative (Negati ve) 06/01/21 21:30 Urine Bilirubin Neg (Negative) 06/01/21 21:30 Urine Urobilinogen Norm mg/dL (Negat tony) 06/01/21 21:30 Ur Leukocyte Viktoria ase Negative (Negati ve) 06/01/21 21:30 Salicylates 0.4 mg/dL (3-10) L 06/01/21 21:57 Urine Opiates Scre en Negative ng/mL (N egative) 06/01/21 21:30 Acetaminophen < 5.0 ug/mL (10-3 0) L 06/01/21 21:57 Ur Barbiturates Sc reen Negative ng/mL (N egative) 06/01/21 21:30 Ur Phencyclidine S crn Negative ng/mL (N egative) 06/01/21 21:30 Ur Amphetamines Sc reen Negative ng/mL (N egative) 06/01/21 21:30 U Benzodiazepines Scrn Negative ng/mL (N egative) 06/01/21 21:30 Urine Cocaine Scre en Negative ng/mL (N egative) 06/01/21 21:30 U Marijuana (THC) Screen Negative ng/mL (N egative) 06/01/21 21:30 Ethyl Alcohol < 10 mg/dL (0-10) 06/01/21 21:57 Vitals: Last Vital Signs Temp 98.9 F 06/04/21 20:32 Pulse 75 06/04/21 20:32 Resp 17 06/05/21 06:00 BP 115/81 06/04/21 20:32 Pulse Ox 99 06/04/21 20:32 Discharge Plan Discharge Patient Disposition: Home Condition: Stable Prescriptions: Continued quetiapine 300 mg tablet 300 mg PO BEDTIME 0RF Discharge Orders: Discharge Order (Routine); Ordered 06/05/21 Ordered By: Sam Bond Referrals: Alejandra Farah PMHNP [Staff Physician] - 06/11/21 9:45 am (Follow up) Olivas,Jeremi, MD [Physician] - Discharge Diet: Regular Discharge Activity: Resume usual activity Patient Instructions: Quetiapine (By mouth), Bipolar Disorder (DC), Suicide Prevention (DC), Opioid Safety Discharge Attestations NPU Time Spent in Discharge Care*: less than 30 min Specific Discharge Activities: Specific discharge activities: educating patient, discussing with pcp/other providers, discussing with complex case manager/social workers/dc planners, documenting/other paperwork and evaluating patient/reviewing data Status at Discharge: Cognitive status at discharge: cognitively intact, Behavioral status at discharge: cooperative, Coding Level of Care Code Acute Chg FW DC note Diagnoses Suicidal ideation R45.851 Alcohol dependence, in remission F10.21 Antisocial personality disorder F60.2 Malingering Z76.5 Depressed bipolar I disorder F31.9
== END 2021-06-05 11:03 | disposition home or self-care (01) | DRG 885 ==
LOC: ER 23:28 → NP 23:32
PROVIDERS: Admitting Provider Psychiatry & Neurology Psychiatry; Emergency Provider Emergency Medicine; Visit Provider Psychiatry & Neurology Psychiatry
DX: F31.9 Bipolar disorder, unspecified (principal); R45.851 Suicidal ideations; F10.21 Alcohol dependence, in remission; F60.2 Antisocial personality disorder; Z76.5 Malingerer [conscious simulation]; F17.200 Nicotine dependence, unspecified, uncomplicated
CPT/HCPCS: 36415; 80053; 80306; 80307; 81003; 85025; 97150; 97165; 99285

== ENCOUNTER 2021-06-12 21:22 | Inpatient (IN) | payer MEDICARE, MEDICAID, SELFPAY ==
[2021-06-12 21:29] VITALS: BP 114/74; PULSE 92; RESP 20; TEMP 37.1; O2SAT 97; BMI 34.8
--- NOTE | 2021-06-12 21:43 | ED_ITS ---
HPI - General Adult General: Chief complaint: Psychiatric Symptoms Stated complaint: SI Time Seen by Provider: 06/12/21 21:38 History of Present Illness: HPI: [50]yo patient w/ hx of depression BIBA for suicidal ideation with plan. Patient plans to cut his wrist with a knife. for On arrival, the patient is AAOx3 and cooperative with my evaluation. No focal complaints of chest pain, shortness of breath, palpitations, N/V, focal GI/ complaints. Currently denies HI. No complaints of hallucinations. Onset: acute Duration: ongoing Location: home Severity: severe Associated symptoms: Deny chest pain, dyspnea, nausea, rash, palpitations or vomiting Review of Systems Const: Denies: fever(s) or chills Eyes: Denies: change in vision ENMT: Denies: mouth pain Card: Denies: chest pain or palpitations Resp: Denies: dyspnea or non-productive cough GI: Denies: abdominal pain, nausea, vomiting or diarrhea : Denies: dysuria Musc: Denies: extremity pain Skin/Breast: Denies: rash or new lesions Neuro: Denies: weakness in extremities Psych: Reports: depression and suicidal ideation Ish/Lymph: Denies: easy bruising PFSH ED PFSH: Medical History Alcohol dependence, in remission Bipolar 2 disorder Malingering Psychiatric care Social History Smoking and tobacco status: current every day smoker Physical Exam Const: COMMON NORMALS: alert HENMT: COMMON NORMALS: atraumatic HEAD & SCALP: atraumatic MOUTH: moist mucous membranes not abnormal Eye: COMMON NORMALS: EOMs intact bilaterally and conjunctivae normal CONJUNCTIVA: Yes conjunctivae normal Neck/C-Spine: COMMON NORMALS: full ROM and supple Resp: COMMON NORMALS: normal respiratory effort and clear to auscultation bila terally AUSCULTATION: clear to auscultation bilaterally Cardio: COMMON NORMALS: regular rate RATE: regular rate GI: COMMON NORMALS: Soft to palpation and non-tender PALPATION: Yes Soft to palpation Extremity: COMMON NORMALS: full ROM Neuro: SENSORIUM/ORIENTATION: Yes alert MOTOR EXAM: No Abnormal motor strength present and Other motor observations present (no focal motor deficits) Psych: COMMON NORMALS: speech normal SPEECH: Yes normal speech MOOD & AFFECT: Yes depressed mood Course Vital Signs: Vital signs: Vital Signs Temperature 98.7 F 06/12/21 21:29 Pulse Rate 92 06/12/21 21:29 Respiratory Rate 20 H 06/12/21 21:29 Blood Pressure 114/74 06/12/21 21:29 Pulse Oximetry 97 06/12/21 21:29 MDM - General Adult Medical Decision Making [50]yo patient w/ hx of depression presenting for SI and self cutting. HDS, exam within normal limit Thoughts are linear and organized, and the patient has no AH/VH, or HI. Clinically the patient displays no overt toxidrome; they are well appearing, with low suspicion for toxic ingestion given history and exam. Symptoms unlikely 2/2 anemia, hypothyroidism, infection, or ICH. Workup: CBC, CMP, Lipase, salicylate/tylenol, UDS Lab findings: wnl [11:30pm] On reassessment, labs and workup wnl. Patient is hemodynamically stable with no acute medical complaints. Case discussed with psychiatric provi raisa Dr. Bond at [facility] psych inpatient with recommendation for admission Disposition: Psych Lab Data : 06/12/21 21:53 06/12/21 21:53 Laboratory Results WBC 9.2 10^3/uL (4.0-10.0) 06/12/21 21:53 RBC 4.81 10^6/uL (4.1-5.3) 06/12/21 21:53 Hgb 15.4 g/dL (11.7-16.6) 06/12/21 21:53 Hct 44.5 % (42.0-52.0) 06/12/21 21:53 MCV 92.5 fl (80-94) 06/12/21 21:53 MCH 32.0 pg (28.0-34.0) 06/12/21 21:53 MCHC 34.6 g/dL (30.0-36.0) 06/12/21 21:53 RDW 12.8 % (12.1-15.1) 06/12/21 21:53 Plt Count 232 10^3/cmm (130-400) 06/12/21 21:53 MPV 9.9 fL (7.4-10.4) 06/12/21 21:53 Neut % (Auto) 62.9 % 06/12/21 21:53 Lymph % (Auto) 23.7 % 06/12/21 21:53 [place] % (Auto) 9.7 % 06/12/21 21:53 Eos % (Auto) 2.4 % 06/12/21 21:53 Baso % (Auto) 0.9 % 06/12/21 21:53 Neut # (Auto) 5.81 10^3/uL (1.8-7.7) 06/12/21 21:53 Lymph # (Auto) 2.2 10^3/uL (0.8-4.8) 06/12/21 21:53 [place] # (Auto) 0.9 10^3/uL (0.2-0.9) 06/12/21 21:53 Eos # (Auto) 0.2 10^3/uL (0.0-0.8) 06/12/21 21:53 Baso # (Auto) 0.1 10^3/uL (0.0-0.1) 06/12/21 21:53 Nucleated RBC % (auto) 0 % 06/12/21 21:53 Nucleated RBCs # 0.0 /100WBC 06/12/21 21:53 Discharge Plan Discharge Patient Disposition: Admitted As Inpatient Clinical Impression: Depression with suicidal ideation, Suicide attempt Condition: Stable Coding Level of Care Code ED Upholstery Technician for Wilder 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
[2021-06-12 21:57] LABS: Basophils # 0.1 10^3/uL (0.0-0.1); Basophils % 0.9 %; Eosinophils # 0.2 10^3/uL (0.0-0.8); Eosinophils % 2.4 %; Hematocrit 44.5 % (42.0-52.0); Hemoglobin 15.4 g/dL (11.7-16.6); Lymphocytes # 2.2 10^3/uL (0.8-4.8); Lymphocytes % 23.7 %; Mean Corpuscular HGB Conc 34.6 g/dL (30.0-36.0); Mean Corpuscular Volume 92.5 fl (80-94); Mean Platelet Volume 9.9 fL (7.4-10.4); Monocytes # 0.9 10^3/uL (0.2-0.9); Monocytes % 9.7 %; Neutrophils # 5.81 10^3/uL (1.8-7.7); Neutrophils % 62.9 %; Nucleated Red Blood Cells % 0 %; Platelet Count 232 10^3/cmm (130-400); Red Blood Count 4.81 10^6/uL (4.1-5.3); Red Cell Distribution Width 12.8 % (12.1-15.1); White Blood Count 9.2 10^3/uL (4.0-10.0)
[2021-06-12] MEDS: ziprasidone 20 mg/mL SDV 10 MG IM (22:00)
[2021-06-12 22:26] LABS: Alanine Aminotransferase 31 U/L (0-41); Albumin Level 4.8 g/dL (3.5-5.2); Alkaline Phosphatase 98 IU/L (40-130); Anion Gap 17.5 (5-19); Aspartate Amino Transferase 33 U/L (0-40); Blood Urea Nitrogen 14 mg/dL (6-20); Calcium 9.7 mg/dL (8.5-10.5); Carbon Dioxide 22 mmol/L (22-29); Chloride 106 mmol/L (98-107); Globulin 2.2 g/dL (1.3-4.6); Glucose 89 mg/dL (65-115); Osmolality Calculated 294 mOsm/kg (285-295); Potassium 3.5 mmol/L (3.5-5.1); Sodium 142 mmol/L (136-145); Total Bilirubin 0.4 mg/dL (0.15-1.2)
[2021-06-12 22:29] LABS: Acetaminophen < 5.0 ug/mL (10-30); Salicylate < 0.3 mg/dL (3-10)
[2021-06-12 22:48] VITALS: RESP 16
[2021-06-12 22:51] VITALS: BP 118/78; PULSE 89; RESP 18; TEMP 36.4; O2SAT 98
[2021-06-12 23:01] LABS: Alcohol Level 80 mg/dL (0-10)
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
[2021-06-13 06:00] VITALS: BP 114/73; PULSE 80; RESP 18; TEMP 36.5; O2SAT 98
[2021-06-13] MEDS: hyDROXYzine 25 mg Capsule 50 MG PO (06:41)
[2021-06-13 07:15] LABS: Amphetamines Screen Urine Negative (Negative); Barbiturates Screen Urine Negative (Negative); Benzodiazepines Screen Urine Negative (Negative); Cocaine Screen Urine Negative (Negative); Opiate Screen Urine Negative (Negative); PCP Screen Urine Negative (Negative); THC Screen Urine Negative (Negative)
[2021-06-13] MEDS: nicotine 2 mg Gum BUCCAL (07:23)
[2021-06-13] MEDS: thiamine 100 mg Tablet PO (09:01)
[2021-06-13] MEDS: folic acid 1 mg Tablet PO (09:01)
[2021-06-13] MEDS: multivitamin therapeutic Tablet 1 TAB PO (09:01)
--- NOTE | 2021-06-13 13:32 | P.NPUHP_ITS ---
Providers/Chief Complaint Admitting Physician: Sam Bond MD Chief Complaint: SI HPI NPU History of Present Illness Emil Castro is a 50 year old male who presented to the emergency department the following report: Chief complaint: Psychiatric Symptoms Stated complaint: SI Time Seen by Provider: 06/12/21 21:38 History of Present Illness: HPI: [50]yo patient w/ hx of depression BIBA for suicidal ideation with plan. Patient plans to cut his wrist with a knife. for On arrival, the patient is AAOx3 and cooperative with my evaluation. No focal complaints of chest pain, shortness of breath, palpitations, N/V, focal GI/ complaints. Currently denies HI. No complaints of hallucinations. Onset: acute Duration: ongoing Location: home Severity: severe Associated symptoms: Deny chest pain, dyspnea, nausea, rash, palpitations or vomiting. He was admitted to the Neuropsych Unit for definitive treatment of those issues. We discussed the fact that he has recently been coming off and like he had [employer] and our hope is that he moves forward in his functioning. He reports that he did go to [place] and he does have a job now. He reports that when he was coming home with family things got out of sorts and he needed to get away from his discussed avoiding developing the pattern he had before of coming to the hospital for seemingly anything and every time he felt some resistance in his life. Otherwise he reports that he did relapse on alcohol as his family was drinking but he reports that this is not a pattern he plans to continue. He reports that he is happy that he got the job that he was interested and is looking forward to going back to [place] very soon to continue zack nunez with that. We did call vaccination and he said he would be able to return there. His blood alcohol was 80 on admission. Otherwise he denies any changes and we discussed getting him connected with [facility] given this plan to be in [place]. An excerpt of his last hospitalization is included below given the no substantive changes. Per his 06/02/2021 [facility] inpatient psychiatric evaluation: History of Present Illness Emil Castro is a 50 year old male who presented to the emergency department with the following report: Chief Complaint: Psychiatric Symptoms Stated Complaint: SI Time Seen by Provider: 06/01/21 21:19 History of Present Illness: 50-year-old male with a history of suicidality. He also has a history of drug- induced psychosis. He has a recent admission to the neuropsychiatric unit at this facility for suicidality. He states he is not taking any medications currently. He does deny use of alcohol or any other substances at this time. He states despite this, he continues to have suicidal thoughts. His plan is to use a rope, or overdose on medication. He denies auditory or visual hallucinations at this time. He presents of his own accord, willing to be admitted MD complaint: suicidal ideation Onset (ago): day(s) Duration: constant History of same: Yes Relieving factors: none Exacerbating factors: none Associated psychiatric symptoms: depression and suicidal ideation Associated symptoms: Reports suicidal ideation; Deny auditory hallucinations, visual hallucinations, delusions or homicidal ideation Treatments prior to arrival: none If self harm: admits thoughts of self harm and has plan He was admitted to the neuropsychiatric unit for definitive treatment of those issues. He presents today continuing on the recent theme of sobriety and not having anything in his system when he comes to the hospital which is quite divergence from previous hospitalizations which have been many. He reports that he has not necessarily been at the [facility] and is unclear about his stability in the [facility]. He reports that he had not been taking his medication but he did restart the medication here. We once again reviewed with him as we did in his last hospitalization that we will likely take something more than Seroquel to break the cycle and he reportedly would consider it. He denies any additional changes since his last hospitalization and we discussed having the [facility] program come by on Friday. We discussed the risk-benefit alternatives of initiating an additional antipsychotic and he understood and agreed proceed as is documented in this note, specifically reporting that he will think about it. Per his 05/14/2021 [facility] inpatient psychiatric evaluation: History of Present Illness Emil Castro is a 50 year old male who presented to the emergency department the following report: Chief Complaint: Psychiatric Symptoms Stated Complaint: SI Time Seen by Provider: 05/13/21 15:04 Source: patient Mode of arrival: ambulatory Limitations: no limitations History of Present Illness: 50-year-old male who has a history of bipolar disorder along with suicidality in the past. He states he has been having increasing depression and hallucinations especially auditory hallucinations the last 2 to 3 days. He states he has not been taking his medicine he has been having suicidal thoughts. He wants to get out. He denies any worsening improving factors. Denies any attempts.Associated symptoms: Reports auditory hallucinations, depression and suicidal ideation He was admitted to the neuropsychiatric unit for definitive treatment of those issues. 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 He was last discharged on March 11, 2021 he was started in the [facility] program recently. He had regular [facility] follow-up. He had a psychiatric evaluation on 05/07/2021 and then was engaged by [facility] and reports that he has been sober for about 60 days, he recently lost his brother about 4 months ago, he reports he moved closer to this region from [place] which he reports was really bad. He reports that he is now the [facility] and that has been better but in the last few days he reports that he has struggled with suicidal thoughts. He reports that he has been taking his medication which was only Seroquel 300 mg p.o. nightly he reports that for what ever reason he has been feeling more suicidal and less stable over the past few days. We discussed the risk-benefit alternatives of continuing his current medication and he understood agreed proceed as is documented in this note. We also discussed the prospect of getting started on antidepressant but though he endorsed feeling suicidal he denied being depressed. The only substantive changes that he reports since his last hospitalization is that he no longer lives in [place] and that he reports he been sober for 2 months and his UDS was negative for substances of abuse. An excerpt of his 2020 [facility] inpatient psychiatric evaluation is included below for context. Per his 03/08/2021 [facility] inpatient psychiatric evaluation: History of Present Illness Emil Castro is a 50 year old male who presented to the emergency department with the following report: Chief Complaint: Psychiatric Symptoms Stated Complaint: si Time Seen by Provider: 03/07/21 19:35 Source: patient Mode of arrival: ambulatory Limitations: no limitations History of Present Illness: HPI Narrative: 50-year-old male who is here for suicidal ideation. He states he been having suicidal thoughts over the last 10 days. He states that increased agitation has been hearing voices states that he does want to kill himself and has a plan of jumping in front of a semitruck. He also admits to chronic meth use with meth use recently as well. Denies any worst improving factors. Associated symptoms: Reports auditory hallucinations, depression and suicidal ideation. He was made to the neuropsychiatric unit for the treatment of those issues. Is well-known to this unit secondary to multiple things hospitalizations. He prese nts today much like his previous hospitalizations is a fairly resistant historian. Today it seems more likely that is secondary to withdrawal from methamphetamine causing him to have some confusion, increased somnolence and some irritability. His answers to questions are generalities not specifics but at this point it seems more a product of his intoxication/withdrawal that it does volitional behavior. He gave some report of being in [place] since his discharge in April of this year then returning here recently but he had no reasons for why he went to [place], what he was doing there, why he returned here, what his recovery has been like. He can give no helpful information abo ut when he last took medication, what he was taking for sure, but he reports taking Seroquel and Klonopin. Of course we discussed Klonopin not being a great idea overall for someone with such significant addiction. He did not give any real information about where he has been living, how he has been providing for himself, any other drug and alcohol or mental health services being utilized the last 10 months. We agreed we would investigate some of this information and hopefully determine what he has been doing and how we can help. An excerpt from his 04/30/2020 discharge summary is included below for context. Meds NPU Home Medications Medication Instructions Recorded Confirmed Last Taken Type quetiapine 300 mg tablet 300 mg PO BEDTIME 06/02/21 06/12/21 Unknown History Allergies Allergy/AdvReac Type Severity Reaction Status Date / Time Penicillins Allergy ALGY-Hives Verified 05/07/21 11:40 PFS NPU PFS: Medical History Alcohol dependence, in remission Bipolar 2 disorder Malingering Psychiatric care Social History Smoking and tobacco status: current every day smoker Mental Status Exam MSE Comments: This is an obese white male in hospital scrubs with limited grooming and eye contact.? No abnormal movements except for mild psychomotor retardation.? Mostly cooperative with exam in no acute distress.? Speech was limited and mostly normal rate and decreased volume.? Mood described as better than yesterday, affect congruent.? Thought process mostly organized.? Thought content: Patient endorsed suicidal but denied homicidal ideation, there were no delusions reported or noted, he endorsed auditory but denied visual hallucinations.? Attention and concentration were limited and memory was mostly reliable but none were formally tested.? He is alert and oriented x3.? Insight and judgment are impaired, impulse control is impaired. Vitals/I&O/Wt Last Vital Signs Temp 97.7 F 06/13/21 06:00 Pulse 80 06/13/21 06:00 Resp 18 06/13/21 06:00 BP 114/73 06/13/21 06:00 Pulse Ox 98 06/13/21 06:00 Weight last 48 hrs Weight 113.398 kg Data NPU : 06/12/21 21:53 06/12/21 21:53 A&P Assessment and plan (1) Depressed bipolar I disorder: Status: Resolved (2) Antisocial personality disorder: Status: Chronic (3) Depression with suicidal ideation: Status: Acute (4) Suicide attempt: Status: Acute Plan This is a 50-year-old white male with a long history of multiple inpatient hospitalizations often with concerns for malingering who presents today as member of the [facility] but unclear if he is going to stay in [place] and reporting a relapse on alcohol with suicidal ideation. 1.? Continue current medication.? 2.? Continue every 15 minute checks for safety. 3.? Encourage individual, group and milieu therapies. 4.? Encourage sober living treatment after discharge at the highest level of care to which he is willing to commit. Appears he will be able to return to [employer] and his job in [place]. He will need a referral to [facility] that is the case. Involuntary Hold Information 96 Hour Hold: 96 Hour Involuntary Admission: No 96 Hour Hold Ending Date: 05/18/21 96 Hour Hold Ending Time: 00:01 Attestations NPU Medical Necessity Statement*: Inpatient hospitalization is medically necessary and the clinically appropriate intervention at this time.? We will monitor medications and make changes as indicated.? Patient will be in the hospital for over two midnights.? Likely length of stay 2-4 days. 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
--- NOTE | 2021-06-13 13:42 | PC.SOCIAL ---
Patient did not attend group.
[2021-06-13 13:54] VITALS: BP 138/81; PULSE 81; RESP 18; TEMP 36.7; O2SAT 98
[2021-06-13] MEDS: OLANZapine 5 mg ODT PO (16:15)
[2021-06-13] MEDS: quetiapine 300 mg Tablet PO (20:47)
[2021-06-13 20:53] VITALS: BP 122/68; PULSE 81; RESP 17; TEMP 36.8; O2SAT 95
[2021-06-14 06:00] VITALS: BP 112/67; PULSE 68; RESP 19; TEMP 36.4; O2SAT 98
[2021-06-14] MEDS: thiamine 100 mg Tablet PO (08:48)
[2021-06-14] MEDS: folic acid 1 mg Tablet PO (08:48)
[2021-06-14] MEDS: multivitamin therapeutic Tablet 1 TAB PO (08:48)
[2021-06-14] MEDS: nicotine 21 mg Patch 1 PATCH TRANSDERMA (12:00)
[2021-06-14] MEDS: OLANZapine 5 mg ODT PO (12:08)
[2021-06-14] MEDS: acetaminophen 325 mg Tablet 650 MG PO (12:08)
[2021-06-14 14:00] VITALS: BP 136/81; PULSE 70; RESP 16; TEMP 36.6; O2SAT 99
--- NOTE | 2021-06-14 14:52 | W.PM.NPUPNS ---
Subjective NPU Subjective: He was found in bed 3 PM. He says he did not sleep well last night. The Seroquel normally works well his muscles were tense and his back was sore last night. He said hydrocodone worked well for his sleep previously. He took some Tylenol but it does not take much. He agreed to try some Motrin. He says that he has not had any thoughts about wanting to since he has been here. He wants to get back to the cremation and get back to work so he can get his bills paid. 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 Mental Status Exam MSE Comments: This is an obese white male in hospital scrubs with limited grooming and eye contact.? No abnormal movements except for mild psychomotor retardation.? Mostly cooperative with exam in no acute distress.? Speech was limited and mostly normal rate and decreased volume.? Mood described as better than yesterday, affect congruent.? Thought process mostly organized.? Thought content: Patient endorsed suicidal but denied homicidal ideation, there were no delusions reported or noted, he endorsed auditory but denied visual hallucinations.? Attention and concentration were limited and memory was mostly reliable but none were formally tested.? He is alert and oriented x3.? Insight and judgment are impaired, impulse control is impaired. Cognition: Patient Appearance: Appropriate Level of Consciousness: Awake, Alert, Appropriate and Follows Commands Patient Cognition Impaired: No Ability to Follow Directions: Excellent Patient Orientation (long list): Person, Time, Month and Year Comprehension Ability: No Impairment Hallucination Type: None Delusion Description: Not Present Thought Process: Appropriate Affect: Affect Description: Calm and Flat Depressive Symptoms: Unhappiness Behavior: Patient Behavior: Appropriate and Cooperative Speech Pattern: Appropriate and Clear Vitals/I&O/Wt Last Vital Signs Temp 97.9 F 06/14/21 14:00 Pulse 70 06/14/21 14:00 Resp 16 06/14/21 14:00 BP 136/81 06/14/21 14:00 Pulse Ox 99 06/14/21 14:00 Weight last 48 hrs Weight 113.398 kg Data NPU : 06/12/21 21:53 06/12/21 21:53 A&P Assessment and plan (1) Depressed bipolar I disorder: Status: Resolved (2) Antisocial personality disorder: Status: Chronic (3) Depression with suicidal ideation: Status: Acute (4) Suicide attempt: Status: Acute Plan This is a 50-year-old white male with a long history of multiple inpatient hospitalizations often with concerns for malingering who presents today as member of the [facility] but unclear if he is going to stay in [place] and reporting a relapse on alcohol with suicidal ideation. 1.? Continue current medication.? Add ibuprofen for pain. 2.? Continue every 15 minute checks for safety. 3.? Encourage individual, group and milieu therapies. 4.? Encourage sober living treatment after discharge at the highest level of care to which he is willing to commit. Appears he will be able to return to [employer] and his job in [place]. He will need a referral to [facility] that is the case. Involuntary Hold Information 96 Hour Hold: 96 Hour Involuntary Admission: No 96 Hour Hold Ending Date: 05/18/21 96 Hour Hold Ending Time: 00:01 Attestations NPU Medical Necessity Statement*: Inpatient hospitalization is medically necessary and the clinically appropriate intervention at this time. We will initiate medications and make changes as indicated. 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
--- NOTE | 2021-06-14 15:16 | PC.NURSE ---
New order Patient request to daniel. Notified Dr. Murray. New orders received to daniel with supervision. Orders placed in chart.
[2021-06-14] MEDS: ibuprofen 800 mg tablet PO ×2 (16:03→22:28)
--- NOTE | 2021-06-14 16:52 | PC.SOCIAL ---
Client did not attend group.
[2021-06-14] MEDS: quetiapine 300 mg Tablet PO (20:04)
[2021-06-14 20:40] VITALS: BP 124/81; PULSE 72; RESP 18; TEMP 36.4; O2SAT 96
[2021-06-15 06:00] VITALS: BP 93/65; PULSE 72; RESP 19; TEMP 36.4; O2SAT 97
[2021-06-15] MEDS: ibuprofen 800 mg tablet PO (06:20)
[2021-06-15] MEDS: thiamine 100 mg Tablet PO (08:37)
[2021-06-15] MEDS: multivitamin therapeutic Tablet 1 TAB PO (08:37)
[2021-06-15] MEDS: folic acid 1 mg Tablet PO (08:37)
[2021-06-15] MEDS: nicotine 21 mg Patch 1 PATCH TRANSDERMA (08:38)
--- NOTE | 2021-06-15 10:21 | DCPLANNER ---
IMM completed with pt on 06/15/21 @ [id number]. Pt was given a copy of rights and stated he understood his rights.
--- NOTE | 2021-06-15 10:37 | W.PM.NPUDCS ---
Diagnoses at Discharge Discharge Diagnosis (1) Depressed bipolar I disorder: Status: Resolved Permanent problem details: Patient does not name and get his prescriptions filled when discharged. I am discontinuing all his meds and referring him to outpatient follow-up. (2) Antisocial personality disorder: Status: Chronic (3) Depression with suicidal ideation: Status: Acute (4) Suicide attempt: Status: Acute Reason for Visit Reason for Visit: SI Brief History: History of Present Illness Emil Castro is a 50 year old male who presented to the emergency department the following report: Chief complaint: Psychiatric Symptoms Stated complaint: SI Time Seen by Provider: 06/12/21 21:38 History of Present Illness:?? HPI: [50]yo patient w/ hx of depression BIBA for suicidal ideation with plan. Patient plans to cut his wrist with a knife. for On arrival, the patient is AAOx3 and cooperative with my evaluation. No focal complaints of chest pain, shortness of breath, palpitations, N/V, focal GI/ complaints. Currently denies HI. No complaints of hallucinations. Onset: acute Duration: ongoing Location: home Severity: severe Associated symptoms: Deny chest pain, dyspnea, nausea, rash, palpitations or vomiting. He was admitted to the Neuropsych Unit for definitive treatment of those issues.? We discussed the fact that he has recently been coming off and like he had before and our hope is that he moves forward in his functioning.? He reports that he did go to [place] and he does have a job now.? He reports that when he was coming home with family things got out of sorts and he needed to get away from his discussed avoiding developing the pattern he had before of coming to the hospital for seemingly anything and every time he felt some resistance in his life.? Otherwise he reports that he did relapse on alcohol as his family was drinking but he reports that this is not a pattern he plans to continue.? He reports that he is happy that he got the job that he was interested and is looking forward to going back to [place] very soon to continue [employer] with that.? We did call vaccination and he said he would be able to return there.? His blood alcohol was 80 on admission.? Otherwise he denies any changes and we discussed getting him connected with [facility] given this plan to be in [place].? An excerpt of his last hospitalization is included below given the no substantive changes. Hospital Course Hospital Course He slowly acclimated to the individual, group and milieu therapies provided. He was continued on Seroquel 300 mg daily, his normal outpatient medication. he tolerated these doses and showed steady improvement during his stay. He was able to contract for safety outside hospital prior to discharge. During the hospitalization, patient had routine laboratory studies which were within normal limits except for few outliers. Additionally there was a general medical evaluation which was also within normal limits and revealed no new acute processes. Discharge Summary: At the time of discharge, lethality was denied and psychosis was resolving. Mood and anxiety were well managed. Patient endorsed a plan to follow-up with the aftercare recommendations of the treatment team. Patient was evaluated and deemed to be absent credible lethality, and had achieved the maximum benefit from an inpatient hospitalization, so was discharged. Involuntary Hold Information 96 Hour Hold: 96 Hour Involuntary Admission: No 96 Hour Hold Ending Date: 05/18/21 96 Hour Hold Ending Time: 00:01 Mental Status Exam MSE Comments: This is an obese white male in hospital scrubs with grooming and good eye contact.? No abnormal movements except for mild psychomotor retardation.? Mostly cooperative with exam in no acute distress.? Speech was limited and mostly normal rate and decreased volume.? Mood described as better than when he came, affect congruent.? Thought process mostly organized.? Thought content: Patient endorsed suicidal but denied homicidal ideation, there were no delusions reported or noted, he endorsed auditory but denied visual hallucinations.? Attention and concentration were limited and memory was mostly reliable but none were formally tested.? He is alert and oriented x3.? Insight and judgment are impaired, impulse control is impaired. Cognition: Patient Appearance: Appropriate Level of Consciousness: Awake, Alert, Appropriate and Follows Commands Patient Cognition Impaired: No Ability to Follow Directions: Excellent Patient Orientation (long list): Person, Place, Time, Name, Age, Birthday, Month and Year Comprehension Ability: No Impairment Hallucination Type: None Delusion Description: Not Present Thought Process: Appropriate and Logical Affect: Affect Description: Appropriate and Calm Depressive Symptoms: Unhappiness Behavior: Patient Behavior: Appropriate and Cooperative Speech Pattern: Appropriate and Clear Discharge Data Studies Completed and Pending: Laboratory Results WBC 9.2 10^3/uL (4.0- 10.0) 06/12/21 21:53 RBC 4.81 10^6/uL (4.1 -5.3) 06/12/21 21:53 Hgb 15.4 g/dL (11.7-1 6.6) 06/12/21 21:53 Hct 44.5 % (42.0-52.0 ) 06/12/21 21:53 MCV 92.5 fl (80-94) 06/12/21 21:53 MCH 32.0 pg (28.0-34. 0) 06/12/21 21:53 MCHC 34.6 g/dL (30.0-3 6.0) 06/12/21 21:53 RDW 12.8 % (12.1-15.1 ) 06/12/21 21:53 Plt Count 232 10^3/cmm (130 -400) 06/12/21 21:53 MPV 9.9 fL (7.4-10.4) 06/12/21 21:53 Neut % (Auto) 62.9 % 06/12/21 21:53 Lymph % (Auto) 23.7 % 06/12/21 21:53 Williamson % (Auto) 9.7 % 06/12/21 21:53 Eos % (Auto) 2.4 % 06/12/21 21:53 Baso % (Auto) 0.9 % 06/12/21 21:53 Neut # (Auto) 5.81 10^3/uL (1.8 -7.7) 06/12/21 21:53 Lymph # (Auto) 2.2 10^3/uL (0.8- 4.8) 06/12/21 21:53 Williamson # (Auto) 0.9 10^3/uL (0.2- 0.9) 06/12/21 21:53 Eos # (Auto) 0.2 10^3/uL (0.0- 0.8) 06/12/21 21:53 Baso # (Auto) 0.1 10^3/uL (0.0- 0.1) 06/12/21 21:53 Nucleated RBC % (a uto) 0 % 06/12/21 21:53 Nucleated RBCs # 0.0 /100WBC 06/12/21 21:53 Sodium 142 mmol/L (136-1 45) 06/12/21 21:53 Potassium 3.5 mmol/L (3.5-5 .1) 06/12/21 21:53 Chloride 106 mmol/L (98-10 7) 06/12/21 21:53 Carbon Dioxide 22 mmol/L (22-29) 06/12/21 21:53 Anion Gap 17.5 (5-19) 06/12/21 21:53 BUN 14 mg/dL (6-20) 06/12/21 21:53 Creatinine 0.9 mg/dL (0.7-1. 2) 06/12/21 21:53 GFR Calculation 89.0 mL/min (90-1 30) L 06/12/21 21:53 Glucose 89 mg/dL (65-115) 06/12/21 21:53 Calculated Osmolal ity 294 mOsm/kg (285- 295) 06/12/21 21:53 Calcium 9.7 mg/dL (8.5-10 .5) 06/12/21 21:53 Total Bilirubin 0.4 mg/dL (0.15-1 .2) 06/12/21 21:53 AST 33 U/L (0-40) 06/12/21 21:53 ALT 31 U/L (0-41) 06/12/21 21:53 Alkaline Phosphata se 98 IU/L (40-130) 06/12/21 21:53 Total Protein 7.0 g/dL (6.6-8.7 ) 06/12/21 21:53 Albumin 4.8 g/dL (3.5-5.2 ) 06/12/21 21:53 Globulin 2.2 g/dL (1.3-4.6 ) 06/12/21 21:53 Salicylates < 0.3 mg/dL (3-10 ) L 06/12/21 21:53 Urine Opiates Scre en Negative ng/mL (N egative) 06/13/21 06:20 Acetaminophen < 5.0 ug/mL (10-3 0) L 06/12/21 21:53 Ur Barbiturates Sc reen Negative ng/mL (N egative) 06/13/21 06:20 Ur Phencyclidine S crn Negative ng/mL (N egative) 06/13/21 06:20 Ur Amphetamines Sc reen Negative ng/mL (N egative) 06/13/21 06:20 U Benzodiazepines Scrn Negative ng/mL (N egative) 06/13/21 06:20 Urine Cocaine Scre en Negative ng/mL (N egative) 06/13/21 06:20 U Marijuana (THC) Screen Negative ng/mL (N egative) 06/13/21 06:20 Ethyl Alcohol 80 mg/dL (0-10) H 06/12/21 21:53 Vitals: Last Vital Signs Temp 97.6 F 06/15/21 06:00 Pulse 72 06/15/21 06:00 Resp 19 H 06/15/21 06:00 BP 93/65 06/15/21 06:00 Pulse Ox 97 06/15/21 06:00 Discharge Plan Discharge Patient Disposition: Home Condition: Stable Prescriptions: Continued quetiapine 300 mg tablet 300 mg PO BEDTIME 0RF Discharge Orders: Discharge Order (Routine); Ordered 06/15/21 Ordered By: Tom Bee Referrals: [facility] [Other] (Walk in for medication management Friday through Friday 8am to 4pm.) [facility] [Other] Discharge Diet: Regular Discharge Activity: Resume usual activity Patient Instructions: Opioid Safety Discharge Attestations NPU Time Spent in Discharge Care*: less than 30 min Specific Discharge Activities: Specific discharge activities: discussing with case management social worker/social workers/dc planners, documenting/other paperwork and evaluating patient/reviewing data Status at Discharge: Cognitive status at discharge: cognitively intact, Behavioral status at discharge: cooperative, Coding Level of Care Code Acute [facility] DC note Diagnoses Depressed bipolar I disorder F31.9 Antisocial personality disorder F60.2 Depression with suicidal ideation F32.A; R45.851 Suicide attempt T14.91XA
[2021-06-15 11:23] VITALS: BP 93/65; PULSE 72; RESP 19; TEMP 36.4; O2SAT 97
== END 2021-06-15 12:00 | disposition home or self-care (01) | DRG 885 ==
LOC: ER 21:50 → NP 22:24
PROVIDERS: Admitting Provider Psychiatry & Neurology Psychiatry; Emergency Provider Emergency Medicine; Visit Provider Psychiatry & Neurology Psychiatry
DX: F31.9 Bipolar disorder, unspecified (principal); R45.851 Suicidal ideations; F10.129 Alcohol abuse with intoxication, unspecified; Y90.4 Blood alcohol level of 80-99 mg/100 ml; F17.210 Nicotine dependence, cigarettes, uncomplicated; F60.2 Antisocial personality disorder
CPT/HCPCS: 80053; 80306; 80307; 85025; 96372; 97150; 97165; 99285; J3486

== ENCOUNTER 2021-08-23 19:41 | Inpatient (IN) | payer MEDICARE, MEDICAID, SELFPAY ==
[2021-08-23 19:45] VITALS: BP 136/78; PULSE 106; RESP 18; TEMP 36.5; O2SAT 98; BMI 32.5
--- NOTE | 2021-08-23 19:45 | ECG_ITS ---
[facility] Test Date: 2021-08-23 Pat Name: Emil Castro Department: Room: Gender: Male French Folder: : 1970 Requested By: Kelly Canela Order Number: [id number] Olivares MD: Byron Jones M.D. Measurements Intervals [place] Rate: 79 P: 42 [place]: 190 QRS: -33 QRSD: 116 T: 48 QT: 384 QTc: 441 Interpretive Statements SINUS RHYTHM LEFT AXIS DEVIATION [QRS AXIS < -30] MODERATE INTRAVENTRICULAR CONDUCTION DELAY [110+ ms QRS DURATION] Compared to ECG 04/18/2020 04:21:41 Left-axis deviation now present Electronically Signed On 08-24-2021 5:51:21 CDT by Byron Jones M.D. [email or web address]
--- NOTE | 2021-08-23 20:07 | ED_ITS ---
Documented by User: Kelly Canela MD 08/23/21 22:12 HPI - General Adult General: Chief complaint: Psychiatric Symptoms Stated complaint: SI Time Seen by Provider: 08/23/21 19:44 History of Present Illness: HPI: [51]yo patient w/ hx of depression presenting for suicidal ideation with plan. Patient plans to hang himself and decided against the last minute and came in to the ED. On arrival, the patient is AAOx3 and cooperative with my evaluation. No focal complaints of chest pain, shortness of breath, palpitations, N/V, focal GI/ complaints. Currently denies HI. No complaints of hallucinations. Onset: acute Duration: ongoing Location: home Severity: severe Associated symptoms: Deny chest pain, dyspnea, nausea, rash, palpitations or vomiting Review of Systems Const: Denies: fever(s) or chills Eyes: Denies: change in vision ENMT: Denies: mouth pain Card: Denies: chest pain or palpitations Resp: Denies: dyspnea or non-productive cough GI: Denies: abdominal pain, nausea, vomiting or diarrhea : Denies: dysuria Musc: Denies: extremity pain Skin/Breast: Denies: rash or new lesions Neuro: Denies: weakness in extremities Psych: Reports: depression and suicidal ideation Ish/Lymph: Denies: easy bruising PFSH ED PFSH: Medical History Alcohol dependence, in remission Bipolar 2 disorder [facility] Social History Smoking and tobacco status: current every day smoker Physical Exam Const: COMMON NORMALS: alert HENMT: COMMON NORMALS: atraumatic HEAD & SCALP: atraumatic MOUTH: moist mucous membranes not abnormal Eye: COMMON NORMALS: EOMs intact bilaterally and conjunctivae normal CONJUNCTIVA: Yes conjunctivae normal Neck/C-Spine: COMMON NORMALS: full ROM and supple Resp: COMMON NORMALS: normal respiratory effort and clear to auscultation bilaterally AUSCULTATION: clear to auscultation bilaterally Cardio: COMMON NORMALS: regular rate RATE: regular rate GI: COMMON NORMALS: Soft to palpation and non-tender PALPATION: Yes Soft to palpation Extremity: COMMON NORMALS: full ROM Neuro: SENSORIUM/ORIENTATION: Yes alert MOTOR EXAM: No Abnormal motor strength present and Other motor observations present (no focal motor deficits) Psych: COMMON NORMALS: speech normal SPEECH: Yes normal speech MOOD & AF FECT: Yes depressed mood Course Vital Signs: Vital signs: Vital Signs Temperature 98.0 F 08/27/21 12:28 Pulse Rate 65 08/27/21 12:28 Respiratory Rate 20 H 08/27/21 12:28 Blood Pressure 101/67 08/27/21 12:28 Pulse Oximetry 98 08/27/21 12:28 MDM - General Adult Medical Decision Making [51]yo patient w/ hx of depression presenting for SI iwth plan. HDS, exam within normal limit Thoughts are linear and organized, and the patient has no AH/VH, or HI. Clinically the patient displays no overt toxidrome; they are well appearing, with low suspicion for toxic ingestion given history and exam. Symptoms unlikely 2/2 anemia, hypothyroidism, infection, or ICH. Workup: CBC, CMP, Lipase, salicylate/tylenol, UDS Lab findings: wnl, +amphetamine in the urine [9:34pm] On reassessment, labs and workup wnl. Patient is hemodynamically stable with no acute medical complaints. Case discussed with psychiatric provider Dr. Bond at [facility] psych inpatient with recommendation for admission Disposition: Psych Lab Data : 08/23/21 21:35 08/23/21 21:35 Laboratory Results WBC 15.3 10^3/uL (4.0-10.0) H 08/23/21 21:35 RBC 4.90 10^6/uL (4.1-5.3) 08/23/21 21:35 Hgb 16.0 g/dL (11.7-16.6) 08/23/21 21:35 Hct 46.3 % (42.0-52.0) 08/23/21 21:35 MCV 94.5 fl (80-94) H 08/23/21 21:35 MCH 32.7 pg (28.0-34.0) 08/23/21 21:35 MCHC 34.6 g/dL (30.0-36.0) 08/23/21 21:35 RDW 13.2 % (12.1-15.1) 08/23/21 21:35 Plt Count 256 10^3/cmm (130-400) 08/23/21 21:35 MPV 10.1 fL (7.4-10.4) 08/23/21 21:35 Neut % (Auto) 70.4 % 08/23/21 21:35 Lymph % (Auto) 15.0 % 08/23/21 21:35 [place] % (Auto) 12.1 % 08/23/21 21:35 Eos % (Auto) 1.5 % 08/23/21 21:35 Baso % (Auto) 0.5 % 08/23/21 21:35 Neut # (Auto) 10.73 10^3/uL (1.8-7.7) H 08/23/21 21:35 Lymph # (Auto) 2.3 10^3/uL (0.8-4.8) 08/23/21 21:35 [place] # (Auto) 1.9 10^3/uL (0.2-0.9) H 08/23/21 21:35 Eos # (Auto) 0.2 10^3/uL (0.0-0.8) 08/23/21 21:35 Baso # (Auto) 0.1 10^3/uL (0.0-0.1) 08/23/21 21:35 Nucleated RBC % (auto) 0 % 08/23/21 21:35 Nucleated RBCs # 0.0 /100WBC 08/23/21 21:35 Sodium 139 mmol/L (136-145) 08/23/21 21:35 Potassium 3.9 mmol/L (3.5-5.1) 08/23/21 21:35 Chloride 98 mmol/L (98-107) 08/23/21 21:35 Carbon Dioxide 27 mmol/L (22-29) 08/23/21 21:35 Anion Gap 17.9 (5-19) 08/23/21 21:35 BUN 20 mg/dL (6-20) 08/23/21 21:35 Creatinine 1.2 mg/dL (0.7-1.2) 08/23/21 21:35 GFR Calculation 63.6 mL/min (90-130) L 08/23/21 21:35 Glucose 120 mg/dL (65-115) H 08/23/21 21:35 Calculated Osmolality 292 mOsm/kg (285-295) 08/23/21 21:35 Calcium 9.8 mg/dL (8.5-10.5) 08/23/21 21:35 Total Bilirubin 1.5 mg/dL (0.15-1.2) H 08/23/21 21:35 AST 26 U/L (0-40) 08/23/21 21:35 ALT 25 U/L (0-41) 08/23/21 21:35 Alkaline Phosphatase 99 IU/L (40-130) 08/23/21 21:35 Total Protein 7.7 g/dL (6.6-8.7) 08/23/21 21:35 Albumin 5.2 g/dL (3.5-5.2) 08/23/21 21:35 Globulin 2.5 g/dL (1.3-4.6) 08/23/21 21:35 Lipase 35 U/L (13-60) 08/23/21 21:35 TSH 1.50 uIU/mL (0.27-4.20) 08/23/21 21:35 Free T4 1.39 ng/dL (0.82-1.77) 08/23/21 21:35 Salicylates < 0.3 mg/dL (3-10) L 08/23/21 21:35 Urine Opiates Screen Negative ng/mL (Negative) 08/23/21 21:35 Acetaminophen < 5.0 ug/mL (10-30) L 08/23/21 21:35 Ur Barbiturates Screen Negative ng/mL (Negative) 08/23/21 21:35 Ur Phencyclidine Scrn Negative ng/mL (Negative) 08/23/21 21:35 Ur Amphetamines Screen Positive ng/mL (Negative) H 08/23/21 21:35 U Benzodiazepines Scrn Negative ng/mL (Negative) 08/23/21 21:35 Urine Cocaine Screen Negative ng/mL (Negative) 08/23/21 21:35 U Marijuana (THC) Screen Negative ng/mL (Negative) 08/23/21 21:35 SARS-CoV-2 Ag (Rapid) Negative (Negative) 08/23/21 21:35 Discharge Plan Discharge Patient Disposition: Admitted As Inpatient Admit Provider: Sam Bond Clinical Impression: Depression with suicidal ideation Condition: Stable Discharge Diet: Regular Discharge Activity: Resume usual activity Sign Out Sign Out Data: Patient Sign Out occurred on 08/23/21 at 23:34. Patient's care was discussed, and care was transferred from to Joel Trevino MD. Patient Sign Out occurred on 08/24/21 at 07:58. Patient's care was discussed, and care was transferred from to Tico Espana DO. Coding Level of Care Code ED Straightener for Chg 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 Documented by User: Tico Espana DO 08/24/21 12:02 HPI - General Adult General: Chief complaint: Psychiatric Symptoms Stated complaint: SI Time Seen by Provider: 08/23/21 19:44 PFSH ED PFSH: Medical History Alcohol dependence, in remission Bipolar 2 disorder [facility] Social History Smoking and tobacco status: current every day smoker Course Vital Signs: Vital signs: Vital Signs Temperature 98.0 F 08/27/21 12:28 Pulse Rate 65 08/27/21 12:28 Respiratory Rate 20 H 08/27/21 12:28 Blood Pressure 101/67 08/27/21 12:28 Pulse Oximetry 98 08/27/21 12:28 MDM - General Adult Medical Decision Making [51]yo patient w/ hx of depression presenting for SI iwth plan. HDS, exam within normal limit Thoughts are linear and organized, and the patient has no AH/VH, or HI. Clinically the patient displays no overt toxidrome; they are well appearing, with low suspicion for toxic ingestion given history and exam. Symptoms unlikely 2/2 anemia, hypothyroidism, infection, or ICH. Workup: CBC, CMP, Lipase, salicylate/tylenol, UDS Lab findings: wnl, +amphetamine in the urine [9:34pm] On reassessment, labs and workup wnl. Patient is hemodynamically stable with no acute medical complaints. Case discussed with psychiatric provider Dr. Bond at [facility] psych inpatient with recommendation for admission Disposition: Psych Care assumed at change of shift discussed Dr. Bond will admit patient orders written admit for suicidal ideation. Lab Data : 08/23/21 21:35 08/23/21 21:35 Laboratory Results WBC 15.3 10^3/uL (4.0-10.0) H 08/23/21 21:35 RBC 4.90 10^6/uL (4.1-5.3) 08/23/21 21:35 Hgb 16.0 g/dL (11.7-16.6) 08/23/21 21:35 Hct 46.3 % (42.0-52.0) 08/23/21 21:35 MCV 94.5 fl (80-94) H 08/23/21 21:35 MCH 32.7 pg (28.0-34.0) 08/23/21 21:35 MCHC 34.6 g/dL (30.0-36.0) 08/23/21 21:35 RDW 13.2 % (12.1-15.1) 08/23/21 21:35 Plt Count 256 10^3/cmm (130-400) 08/23/21 21:35 MPV 10.1 fL (7.4-10.4) 08/23/21 21:35 Neut % (Auto) 70.4 % 08/23/21 21:35 Lymph % (Auto) 15.0 % 08/23/21 21:35 [place] % (Auto) 12.1 % 08/23/21 21:35 Eos % (Auto) 1.5 % 08/23/21 21:35 Baso % (Auto) 0.5 % 08/23/21 21:35 Neut # (Auto) 10.73 10^3/uL (1.8-7.7) H 08/23/21 21:35 Lymph # (Auto) 2.3 10^3/uL (0.8-4.8) 08/23/21 21:35 [place] # (Auto) 1.9 10^3/uL (0.2-0.9) H 08/23/21 21:35 Eos # (Auto) 0.2 10^3/uL (0.0-0.8) 08/23/21 21:35 Baso # (Auto) 0.1 10^3/uL (0.0-0.1) 08/23/21 21:35 Nucleated RBC % (auto) 0 % 08/23/21 21:35 Nucleated RBCs # 0.0 /100WBC 08/23/21 21:35 Sodium 139 mmol/L (136-145) 08/23/21 21:35 Potassium 3.9 mmol/L (3.5-5.1) 08/23/21 21:35 Chloride 98 mmol/L (98-107) 08/23/21 21:35 Carbon Dioxide 27 mmol/L (22-29) 08/23/21 21:35 Anion Gap 17.9 (5-19) 08/23/21 21:35 BUN 20 mg/dL (6-20) 08/23/21 21:35 Creatinine 1.2 mg/dL (0.7-1.2) 08/23/21 21:35 GFR Calculation 63.6 mL/min (90-130) L 08/23/21 21:35 Glucose 120 mg/dL (65-115) H 08/23/21 21:35 Calculated Osmolality 292 mOsm/kg (285-295) 08/23/21 21:35 Calcium 9.8 mg/dL (8.5-10.5) 08/23/21 21:35 Total Bilirubin 1.5 mg/dL (0.15-1.2) H 08/23/21 21:35 AST 26 U/L (0-40) 08/23/21 21:35 ALT 25 U/L (0-41) 08/23/21 21:35 Alkaline Phosphatase 99 IU/L (40-130) 08/23/21 21:35 Total Protein 7.7 g/dL (6.6-8.7) 08/23/21 21:35 Albumin 5.2 g/dL (3.5-5.2) 08/23/21 21:35 Globulin 2.5 g/dL (1.3-4.6) 08/23/21 21:35 Lipase 35 U/L (13-60) 08/23/21 21:35 TSH 1.50 uIU/mL (0.27-4.20) 08/23/21 21:35 Free T4 1.39 ng/dL (0.82-1.77) 08/23/21 21:35 Salicylates < 0.3 mg/dL (3-10) L 08/23/21 21:35 Urine Opiates Screen Negative ng/mL (Negative) 08/23/21 21:35 Acetaminophen < 5.0 ug/mL (10-30) L 08/23/21 21:35 Ur Barbiturates Screen Negative ng/mL (Negative) 08/23/21 21:35 Ur Phencyclidine Scrn Negative ng/mL (Negative) 08/23/21 21:35 Ur Amphetamines Screen Positive ng/mL (Negative) H 08/23/21 21:35 U Benzodiazepines Scrn Negative ng/mL (Negative) 08/23/21 21:35 Urine Cocaine Screen Negative ng/mL (Negative) 08/23/21 21:35 U Marijuana (THC) Screen Negative ng/mL (Negative) 08/23/21 21:35 SARS-CoV-2 Ag (Rapid) Negative (Negative) 08/23/21 21:35 Discharge Plan Discharge Patient Disposition: Admitted As Inpatient Admit Provider: Sam Bond Clinical Impression: Depression with suicidal ideation Condition: Stable Discharge Diet: Regular Discharge Activity: Resume usual activity Sign Out Sign Out Data: Patient Sign Out occurred on 08/23/21 at 23:34. Patient's care was discussed, and care was transferred from to Joel Trevino MD. Patient Sign Out occurred on 08/24/21 at 07:58. Patient's care was discussed, and care was transferred from to Tico Espana DO. Coding Level of Care Code ED Straightener for Chg 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 Documented by User: Joel Trevino MD 09/05/21 21:28 HPI - General Adult General: Chief complaint: Psychiatric Symptoms Stated complaint: SI Time Seen by Provider: 08/23/21 19:44 PFSH ED PFSH: Medical History Alcohol dependence, in remission Bipolar 2 disorder [facility] Social History Smoking and tobacco status: current every day smoker Course Vital Signs: Vital signs: Vital Signs Temperature 98.0 F 08/27/21 12:28 Pulse Rate 65 08/27/21 12:28 Respiratory Rate 20 H 08/27/21 12:28 Blood Pressure 101/67 08/27/21 12:28 Pulse Oximetry 98 08/27/21 12:28 MDM - General Adult Medical Decision Making [51]yo patient w/ hx of depression presenting for SI iwth plan. HDS, exam within normal limit Thoughts are linear and organized, and the patient has no AH/VH, or HI. Clinically the patient displays no overt toxidrome; they are well appearing, with low suspicion for toxic ingestion given history and exam. Symptoms unlikely 2/2 anemia, hypothyroidism, infection, or ICH. Workup: CBC, CMP, Lipase, salicylate/tylenol, UDS Lab findings: wnl, +amphetamine in the urine [9:34pm] On reassessment, labs and workup wnl. Patient is hemodynamically stable with no acute medical complaints. Case discussed with psychiatric provider Dr. Bond at [facility] psych inpatient with recommendation for admission Disposition: Psych Care handoff received from Dr. Canela pending placement. No acute events during my shift. Discussed with Dr. Espana at time of shift change. Joel Trevino MD Emergency Medicine Care assumed at change of shift discussed Dr. Bond will admit patient orders written admit for suicidal ideation. Lab Data : 08/23/21 21:35 08/23/21 21:35 Laboratory Results WBC 15.3 10^3/uL (4.0-10.0) H 08/23/21 21:35 RBC 4.90 10^6/uL (4.1-5.3) 08/23/21 21:35 Hgb 16.0 g/dL (11.7-16.6) 08/23/21 21:35 Hct 46.3 % (42.0-52.0) 08/23/21 21:35 MCV 94.5 fl (80-94) H 08/23/21 21:35 MCH 32.7 pg (28.0-34.0) 08/23/21 21:35 MCHC 34.6 g/dL (30.0-36.0) 08/23/21 21:35 RDW 13.2 % (12.1-15.1) 08/23/21 21:35 Plt Count 256 10^3/cmm (130-400) 08/23/21 21:35 MPV 10.1 fL (7.4-10.4) 08/23/21 21:35 Neut % (Auto) 70.4 % 08/23/21 21:35 Lymph % (Auto) 15.0 % 08/23/21 21:35 [place] % (Auto) 12.1 % 08/23/21 21:35 Eos % (Auto) 1.5 % 08/23/21 21:35 Baso % (Auto) 0.5 % 08/23/21 21:35 Neut # (Auto) 10.73 10^3/uL (1.8-7.7) H 08/23/21 21:35 Lymph # (Auto) 2.3 10^3/uL (0.8-4.8) 08/23/21 21:35 [place] # (Auto) 1.9 10^3/uL (0.2-0.9) H 08/23/21 21:35 Eos # (Auto) 0.2 10^3/uL (0.0-0.8) 08/23/21 21:35 Baso # (Auto) 0.1 10^3/uL (0.0-0.1) 08/23/21 21:35 Nucleated RBC % (auto) 0 % 08/23/21 21:35 Nucleated RBCs # 0.0 /100WBC 08/23/21 21:35 Sodium 139 mmol/L (136-145) 08/23/21 21:35 Potassium 3.9 mmol/L (3.5-5.1) 08/23/21 21:35 Chloride 98 mmol/L (98-107) 08/23/21 21:35 Carbon Dioxide 27 mmol/L (22-29) 08/23/21 21:35 Anion Gap 17.9 (5-19) 08/23/21 21:35 BUN 20 mg/dL (6-20) 08/23/21 21:35 Creatinine 1.2 mg/dL (0.7-1.2) 08/23/21 21:35 GFR Calculation 63.6 mL/min (90-130) L 08/23/21 21:35 Glucose 120 mg/dL (65-115) H 08/23/21 21:35 Calculated Osmolality 292 mOsm/kg (285-295) 08/23/21 21:35 Calcium 9.8 mg/dL (8.5-10.5) 08/23/21 21:35 Total Bilirubin 1.5 mg/dL (0.15-1.2) H 08/23/21 21:35 AST 26 U/L (0-40) 08/23/21 21:35 ALT 25 U/L (0-41) 08/23/21 21:35 Alkaline Phosphatase 99 IU/L (40-130) 08/23/21 21:35 Total Protein 7.7 g/dL (6.6-8.7) 08/23/21 21:35 Albumin 5.2 g/dL (3.5-5.2) 08/23/21 21:35 Globulin 2.5 g/dL (1.3-4.6) 08/23/21 21:35 Lipase 35 U/L (13-60) 08/23/21 21:35 TSH 1.50 uIU/mL (0.27-4.20) 08/23/21 21:35 Free T4 1.39 ng/dL (0.82-1.77) 08/23/21 21:35 Salicylates < 0.3 mg/dL (3-10) L 08/23/21 21:35 Urine Opiates Screen Negative ng/mL (Negative) 08/23/21 21:35 Acetaminophen < 5.0 ug/mL (10-30) L 08/23/21 21:35 Ur Barbiturates Screen Negative ng/mL (Negative) 08/23/21 21:35 Ur Phencyclidine Scrn Negative ng/mL (Negative) 08/23/21 21:35 Ur Amphetamines Screen Positive ng/mL (Negative) H 08/23/21 21:35 U Benzodiazepines Scrn Negative ng/mL (Negative) 08/23/21 21:35 Urine Cocaine Screen Negative ng/mL (Negative) 08/23/21 21:35 U Marijuana (THC) Screen Negative ng/mL (Negative) 08/23/21 21:35 SARS-CoV-2 Ag (Rapid) Negative (Negative) 08/23/21 21:35 Discharge Plan Discharge Patient Disposition: Admitted As Inpatient Admit Provider: Sam Bond Clinical Impression: Depression with suicidal ideation Condition: Stable Discharge Diet: Regular Discharge Activity: Resume usual activity Sign Out Sign Out Data: Patient Sign Out occurred on 08/23/21 at 23:34. Patient's care was discussed, and care was transferred from to Joel Trevino MD. Patient Sign Out occurred on 08/24/21 at 07:58. Patient's care was discussed, and care was transferred from to Tico Espana DO. Coding Level of Care Code ED Straightener for Chg 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
[2021-08-23 21:56] LABS: Basophils # 0.1 10^3/uL (0.0-0.1); Basophils % 0.5 %; Eosinophils # 0.2 10^3/uL (0.0-0.8); Eosinophils % 1.5 %; Hematocrit 46.3 % (42.0-52.0); Lymphocytes # 2.3 10^3/uL (0.8-4.8); Mean Corpuscular HGB Conc 34.6 g/dL (30.0-36.0); Mean Corpuscular Hemoglobin 32.7 pg (28.0-34.0); Mean Corpuscular Volume 94.5 fl (80-94); Mean Platelet Volume 10.1 fL (7.4-10.4); Monocytes # 1.9 10^3/uL (0.2-0.9); Monocytes % 12.1 %; Neutrophils # 10.73 10^3/uL (1.8-7.7); Neutrophils % 70.4 %; Nucleated Red Blood Cells % 0 %; Platelet Count 256 10^3/cmm (130-400); Red Cell Distribution Width 13.2 % (12.1-15.1); White Blood Count 15.3 10^3/uL (4.0-10.0)
[2021-08-23 22:05] LABS: Amphetamines Screen Urine Positive (Negative); Barbiturates Screen Urine Negative (Negative); Benzodiazepines Screen Urine Negative (Negative); Cocaine Screen Urine Negative (Negative); Opiate Screen Urine Negative (Negative); PCP Screen Urine Negative (Negative); THC Screen Urine Negative (Negative)
[2021-08-23 22:14] LABS: SARS Covid-2 Antigen Negative (Negative)
[2021-08-23 22:29] LABS: Alanine Aminotransferase 25 U/L (0-41); Albumin Level 5.2 g/dL (3.5-5.2); Alkaline Phosphatase 99 IU/L (40-130); Anion Gap 17.9 (5-19); Aspartate Amino Transferase 26 U/L (0-40); Blood Urea Nitrogen 20 mg/dL (6-20); Calcium 9.8 mg/dL (8.5-10.5); Carbon Dioxide 27 mmol/L (22-29); Chloride 98 mmol/L (98-107); Free T4 Free Thyroxine 1.39 ng/dL (0.82-1.77); Globulin 2.5 g/dL (1.3-4.6); Glomerular Filtration Rate 63.6 mL/min (90-130); Glucose 120 mg/dL (65-115); Lipase 35 U/L (13-60); Osmolality Calculated 292 mOsm/kg (285-295); Potassium 3.9 mmol/L (3.5-5.1); Sodium 139 mmol/L (136-145); Total Bilirubin 1.5 mg/dL (0.15-1.2); Total Protein 7.7 g/dL (6.6-8.7)
[2021-08-23] MEDS: nicotine 21 mg Patch 1 PATCH TRANSDERMA (22:34)
[2021-08-23 22:36] LABS: Acetaminophen < 5.0 ug/mL (10-30); Salicylate < 0.3 mg/dL (3-10)
[2021-08-23 23:48] VITALS: BP 119/77; PULSE 73; RESP 17; O2SAT 98
--- NOTE | 2021-08-24 04:05 | PC.NURSE ---
patient sleeping comfortably in bed at this time with even chest rise and fall noted. patient in no obivous distress. safety checks performed and sitter at bedside.
[2021-08-24 06:43] VITALS: BP 105/64; PULSE 64; RESP 18; O2SAT 96
[2021-08-24 12:51] VITALS: BP 157/88; PULSE 76; RESP 16; O2SAT 96
[2021-08-24 13:09] VITALS: BP 157/88; PULSE 76; RESP 16; O2SAT 96
[2021-08-24 13:28] VITALS: BP 120/84; PULSE 86; RESP 17; TEMP 36.4; O2SAT 98
[2021-08-24 13:50] VITALS: BP 120/84; PULSE 86; RESP 17; TEMP 36.4; O2SAT 98
[2021-08-24] MEDS: OLANZapine 5 mg ODT PO (14:51)
[2021-08-24] MEDS: acetaminophen 325 mg Tablet 650 MG PO (14:51)
--- NOTE | 2021-08-24 14:54 | PC.NURSE ---
Patient voices c/o headache rated 10 and increased anxiety rated 10. Tylenol 650 mg po and zyprexia 5 mg sl given for this.
[2021-08-24 19:58] VITALS: BP 96/59; PULSE 69; RESP 17; O2SAT 96
[2021-08-25 06:00] VITALS: BP 105/65; PULSE 57; RESP 16; O2SAT 99
[2021-08-25] MEDS: nicotine 2 mg Gum BUCCAL ×2 (08:22→18:30)
[2021-08-25] MEDS: OLANZapine 5 mg ODT PO (09:05)
--- NOTE | 2021-08-25 09:44 | PC.NURSE ---
PT IS ANXIOUS AND WANTING TO LEAVE. STATES, IT'S FATHERS DAY WEEKEND AND I WOULD LIKE TO BE WITH MY KIDS AND FAMILY. DENIES SI/HI AND AVH AT THIS TIME. PT CONTINUES TO VOICE WHAT HE TOLD THE ER WAS JUST A PASSING THOUGHT, NOTHING I WOULD EVER ACT ON. SUPPORT VOICED.
--- NOTE | 2021-08-25 11:28 | W.PM.NPUH&PS ---
Providers/Chief Complaint Admitting Physician: Sam Bond MD Chief Complaint: SI HPI NPU History of Present Illness Emil Castro is a 51 year old male who presented to the emergency department the following report: Chief complaint: Psychiatric Symptoms Stated complaint: SI Time Seen by Provider: 08/23/21 19:44 History of Present Illness: HPI: [51]yo patient w/ hx of depression presenting for suicidal ideation with plan. Patient plans to hang himself and decided against the last minute and came in to the ED. On arrival, the patient is AAOx3 and cooperative with my evaluation. No focal complaints of chest pain, shortness of breath, palpitations, N/V, focal GI/ complaints. Currently denies HI. No complaints of hallucinations. Onset: acute Duration: ongoing Location: home Severity: severe Associated symptoms: Deny chest pain, dyspnea, nausea, rash, palpitations or vomiting He was admitted to the neuropsychiatric unit for definitive treatment of those issues. Patient is well-known to the unit from multiple past inpatient stays the last of which was in June. He had previously been here much more often but had been having a modicum of success followed by some recent challenges again. He reports that after his last stay he had gone to [place] and was doing fairly well and told someone on convoluted story about how he was coming back here to get his mail arranged and that he decided once he was here that he was going to go ahead and say and he went to [facility] and they were lining up a place for him to stay in the next 2 or 3 days. But then frustrations and bad choices get the best of him which led him to presenting to the hospital yesterday. He reports another problem that led to him coming his way was that he has he will get his medication for about the last month or so he would not and could not explain whether this was related to him not following through on something to get refills or some other concern. Review of the chart suggested maybe he was given refills in the left in beginning of June. Unclear why that occurred. He was indicated to moving forward, getting his own place to [facility] getting back on medication and trying to remain in the right direction. Documentation shows that he has been doing better when he comes to his addictive behavior however he reports sobriety extending back more than 6 months and I am unconvinced that that is accurate though. We discussed the risk benefits alternatives of getting his medications restarted and trying to assist him in stability on that front and he understood agreed proceed as is documented in this note. An excerpt of his June stay is included below for context. Per his 06/13/2021 [facility] inpatient psychiatric evaluation: History of Present Illness Emil Castro is a 50 year old male who presented to the emergency department the following report: Chief complaint: Psychiatric Symptoms Stated complaint: SI Time Seen by Provider: 06/12/21 21:38 History of Present Illness:?? HPI: [50]yo patient w/ hx of depression BIBA for suicidal ideation with plan. Patient plans to cut his wrist with a knife. for On arrival, the patient is AAOx3 and cooperative with my evaluation. No focal complaints of chest pain, shortness of breath, palpitations, N/V, focal GI/ complaints. Currently denies HI. No complaints of hallucinations. Onset: acute Duration: ongoing Location: home Severity: severe Associated symptoms: Deny chest pain, dyspnea, nausea, rash, palpitations or vomiting. He was admitted to the Neuropsych Unit for definitive treatment of those issues.? We discussed the fact that he has recently been coming off and like he had before and our hope is that he moves forward in his functioning.? He reports that he did go to [place] and he does have a job now.? He reports that when he was coming home with family things got out of sorts and he needed to get away from his discussed avoiding developing the pattern he had before of coming to the hospital for seemingly anything and every time he felt some resistance in his life.? Otherwise he reports that he did relapse on alcohol as his family was drinking but he reports that this is not a pattern he plans to continue.? He reports that he is happy that he got the job that he was interested and is looking forward to going back to [place] very soon to continue victory mission with that.? We did call vaccination and he said he would be able to return there.? His blood alcohol was 80 on admission.? Otherwise he denies any changes and we discussed getting him connected with [facility] given this plan to be in [place].? An excerpt of his last hospitalization is included below given the no substantive changes. Per his 06/02/2021 [facility] inpatient psychiatric evaluation: History of Present Illness Emil Castro is a 50 year old male who presented to the emergency department with the following report: Chief Complaint: Psychiatric Symptoms Stated Complaint: SI Time Seen by Provider: 06/01/21 21:19? ? History of Present Illness: ?? 50-year-old male with a history of suicidality.? He also has a history of drug-induced psychosis.? He has a recent admission to the neuropsychiatric unit at this facility for suicidality.? He states he is not taking any medications currently.? He does deny use of alcohol or any other substances at this time.? He states despite this, he continues to have suicidal thoughts.? His plan is to use a rope, or overdose on medication.? He denies auditory or visual hallucinations at this time.? He presents of his own accord, willing to be admitted MD complaint: suicidal ideation Onset (ago): day(s) Duration: constant History of same: Yes Relieving factors: none Exacerbating factors: none Associated psychiatric symptoms: depression and suicidal ideation Associated symptoms: Reports suicidal ideation; Deny auditory hallucinations, visual hallucinations, delusions or homicidal ideation Treatments prior to arrival: none If self harm: admits thoughts of self harm and has plan He was admitted to the neuropsychiatric unit for definitive treatment of those issues.? He presents today continuing on the recent theme of sobriety and not having anything in his system when he comes to the hospital which is quite divergence from previous hospitalizations which have been many.? He reports that he has not necessarily been at the [facility] and is unclear about his stability in the [facility].? He reports that he had not been taking his medication but he did restart the medication here.? We once again reviewed with him as we did in his last hospitalization that we will likely take something more than Seroquel to break the cycle and he reportedly would consider it.? He denies any additional changes since his last hospitalization and we discussed having the [facility] program come by on Friday.? We discussed the risk-benefit alternatives of initiating an additional antipsychotic and he understood and agreed proceed as is documented in this note, specifically reporting that he will think about it. Per his 05/14/2021 [facility] inpatient psychiatric evaluation: History of Present Illness Emil Castro is a 50 year old male who presented to the emergency department the following report: Chief Complaint: Psychiatric Symptoms Stated Complaint: SI Time Seen by Provider: 05/13/21 15:04 Source: patient Mode of arrival: ambulatory Limitations: no limitations?? ? History of Present Illness:? ?? 50-year-old male who has a history of bipolar disorder along with suicidality in the past.? He states he has been having increasing depression and hallucinations especially auditory hallucinations the last 2 to 3 days.? He states he has not been taking his medicine he has been having suicidal thoughts.? He wants to get out.? He denies any worsening improving factors.? Denies any attempts.Associated symptoms: Reports auditory hallucinations, depression and suicidal ideation He was admitted to the neuropsychiatric unit for definitive treatment of those issues.? 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 He was last discharged on March 11, 2021 he was started in the [facility] program recently.? He had regular [facility] follow-up.? He had a psychiatric evaluation on 05/07/2021 and then was engaged by [facility] program and reports that he has been sober for about 60 days, he recently lost his brother about 4 months ago, he reports he moved closer to this region from [place] which he reports was really bad.? He reports that he is now the [employer] and that has been better but in the last few days he reports that he has struggled with suicidal thoughts.? He reports that he has been taking his medication which was only Seroquel 300 mg p.o. nightly he reports that for what ever reason he has been feeling more suicidal and less stable over the past few days.? We discussed the risk-benefit alternatives of continuing his current medication and he understood agreed proceed as is documented in this note.? We also discussed the prospect of getting started on antidepressant but though he endorsed feeling suicidal he denied being depressed.? The only substantive changes that he reports since his last hospitalization is that he no longer lives in [place] and that he reports he been sober for 2 months and his UDS was negative for substances of abuse.? An excerpt of his 2020 [facility] inpatient psychiatric evaluation is included below for context. Per his 03/08/2021 [facility] inpatient psychiatric evaluation: History of Present Illness Emil Castro is a 50 year old male who presented to the emergency department with the following report: Chief Complaint: Psychiatric Symptoms Stated Complaint: si Time Seen by Provider: 03/07/21 19:35 Source: patient Mode of arrival: ambulatory Limitations: no limitations History of Present Illness:? HPI Narrative: 50-year-old male who is here for suicidal ideation. He states he been having suicidal thoughts over the last 10 days. He states that increased agitation has been hearing voices states that he does want to kill himself and has a plan of jumping in front of a semitruck. He also admits to chronic meth use with meth use recently as well. Denies any worst improving factors. Associated symptoms: Reports auditory hallucinations, depression and suicidal ideation. He was made to the neuropsychiatric unit for the treatment of those issues.? Is well-known to this unit secondary to multiple things hospitalizations.? He presents today much like his previous hospitalizations is a fairly resistant historian.? Today it seems more likely that is secondary to withdrawal from methamphetamine causing him to have some confusion, increased somnolence and some irritability.? His answers to questions are generalities not specifics but at this point it seems more a product of his intoxication/withdrawal that it does volitional behavior.? He gave some report of being in [place] since his discharge in April of this year then returning here recently but he had no reasons for why he went to [place], what he was doing there, why he returned here, what his recovery has been like.? He can give no helpful information about when he last took medication, what he was taking for sure, but he reports taking Seroquel and Klonopin.? Of course we discussed Klonopin not being a great idea overall for someone with such significant addiction.? He did not give any real information about where he has been living, how he has been providing for himself, any other drug and alcohol or mental health services being utilized the last 10 months.? We agreed we would investigate some of this information and hopefully determine what he has been doing and how we can help.? An excerpt from his 04/30/2020 discharge summary is included below for context. Meds NPU Home Medications Medication Instructions Recorded Confirmed Last Taken Type No Known Home Medications 08/23/21 08/23/21 Unknown History Allergies Allergy/AdvReac Type Severity Reaction Status Date / Time Penicillins Allergy ALGY-Hives Verified 08/23/21 20:30 PFS NPU PFSH: Medical History Alcohol dependence, in remission Bipolar 2 disorder Malingering Psychiatric care Social History Smoking and tobacco status: current every day smoker Mental Status Exam MSE Comments: This is an obese white male in hospital scrubs with limited grooming and eye contact.? No abnormal movements except for psychomotor retardation.? Mostly cooperative with exam in mild distress.? Speech was limited and mostly normal rate and decreased volume.? Mood described as crappy, affect congruent.? Thought process mostly organized.? Thought content: Patient endorsed suicidal but denied homicidal ideation, there were no delusions reported or noted, he endorsed auditory but denied visual hallucinations.? Attention and concentration were limited and memory was mostly reliable but none were formally tested.? He is alert and oriented x3.? Insight and judgment are impaired, impulse control is impaired. Vitals/I&O/Wt Last Vital Signs Temp 97.6 F 08/24/21 13:50 Pulse 57 L 08/25/21 06:00 Resp 16 08/25/21 06:00 BP 105/65 08/25/21 06:00 Pulse Ox 99 08/25/21 06:00 Weight last 48 hrs Weight 108.862 kg Data NPU : 08/23/21 21:35 08/23/21 21:35 A&P Assessment and plan (1) Depression with suicidal ideation: Status: Acute (2) Suicide attempt: Status: Acute (3) Alcohol dependence, in remission: Status: Acute (4) Drug-induced psychotic disorder: Status: Acute (5) Antisocial personality disorder: Status: Chronic (6) Depressed bipolar I disorder: Status: Resolved Plan This is a 51-year-old white male with a long history of multiple inpatient hospitalizations often with concerns for malingering who presents today reporting that he has been off of his medication but has been doing work to get housing through [employer] and is looking for help in getting reconnected to medication and services. 1.? Continue current medication.? 2.? Continue every 15 minute checks for safety. 3.? Encourage individual, group and milieu therapies. 4.? Encourage sober living treatment after discharge at the highest level of care to which he is willing to commit.? Involuntary Hold Information 96 Hour Hold: 96 Hour Involuntary Admission: No 96 Hour Hold Ending Date: 05/18/21 96 Hour Hold Ending Time: 00:01 Attestations NPU Medical Necessity Statement*: Inpatient hospitalization is medically necessary and the clinically appropriate intervention at this time.? We will monitor medications and make changes as indicated.? Patient will be in the hospital for over two midnights.? Likely length of stay 2-4 days. 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
[2021-08-25 14:00] VITALS: BP 114/74; PULSE 68; RESP 20; TEMP 36.5; O2SAT 98
[2021-08-25] MEDS: acetaminophen 325 mg Tablet 650 MG PO (19:41)
[2021-08-25 19:42] VITALS: BP 122/73; PULSE 80; RESP 18; TEMP 36.5; O2SAT 96
--- NOTE | 2021-08-25 20:29 | PC.NURSE ---
PATIENT MEDICATION PT STATES BEFORE THIS HOSPITALIZATION HE WAS TAKING SEROQUEL 300MG AT BEDTIME, TRAZADONE 100MG AT BEDTIME, AND LITHIUM. PT IS UNSURE OF LITHIUM DOSE. THIS NURSE SPOKE WITH MD AND WAS GIVEN A PHONE ORDER FOR TRAZADONE 100MG AT BEDTIME AND SEROQUEL 200MG AT BEDTIME.
[2021-08-25] MEDS: benzocaine 20% 7 gm 1 APPLIC MUCOUS MEM (20:40)
[2021-08-25] MEDS: trazodone 100 mg Tablet PO (20:40)
[2021-08-25] MEDS: quetiapine 100 mg Tablet 200 MG PO (20:40)
[2021-08-26 06:00] VITALS: BP 78/45; PULSE 61; RESP 17; TEMP 36.7; O2SAT 97
[2021-08-26] MEDS: nicotine 2 mg Gum BUCCAL ×2 (10:13→17:00)
--- NOTE | 2021-08-26 12:23 | P.NPUPN_ITS ---
Subjective NPU Subjective: Patient presents today reporting that he is doing fine. He reports that he is adjusting to the restarting of the medication at the current doses. We agreed we would likely restart all the medications time. He otherwise denied any problems and reports that he is waiting for the treatment team to assist him in navigating resources in the community. Mental Status Exam MSE Comments: This is an obese white male in hospital scrubs with limited grooming and eye contact.? No abnormal movements except for psychomotor retardation.? Mostly cooperative with exam in mild distress.? Speech was limited and mostly normal rate and decreased volume.? Mood described as a little better, affect congruent.? Thought process mostly organized.? Thought content: Patient denied suicidal and homicidal ideation, there were no delusions reported or noted, he endorsed auditory but denied visual hallucinations.? Attention and concentration were limited and memory was mostly reliable but none were formally tested.? He is alert and oriented x3.? Insight and judgment are impaired, impulse control is impaired. Vitals/I&O/Wt Last Vital Signs Temp 98.0 F 08/26/21 06:00 Pulse 61 08/26/21 06:00 Resp 17 08/26/21 06:00 BP 78/45 08/26/21 06:00 Pulse Ox 97 08/26/21 06:00 Weight last 48 hrs Weight 107.774 kg Data NPU : 08/23/21 21:35 08/23/21 21:35 A&P Assessment and plan (1) Depression with suicidal ideation: Status: Acute (2) Suicide attempt: Status: Acute (3) Alcohol dependence, in remission: Status: Acute (4) Drug-induced psychotic disorder: Status: Acute (5) Antisocial personality disorder: Status: Chronic (6) Depressed bipolar I disorder: Status: Resolved Plan This is a 51-year-old white male with a long history of multiple inpatient hospitalizations often with concerns for malingering who presents today reporting that he has been off of his medication but has been doing work to get housing through [employer] and is looking for help in getting reconnected to medication and services. 1.? Continue current medication.? 2.? Continue every 15 minute checks for safety. 3.? Encourage individual, group and milieu therapies. 4.? Encourage sober living treatment after discharge at the highest level of care to which he is willing to commit.? Involuntary Hold Information 96 Hour Hold: 96 Hour Involuntary Admission: No 96 Hour Hold Ending Date: 05/18/21 96 Hour Hold Ending Time: 00:01 Attestations NPU Medical Necessity Statement*: Inpatient hospitalization is medically necessary and the clinically appropriate intervention at this time.? We will monitor medications and make changes as indicated.? ? Likely length of stay 1-3 days. 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
[2021-08-26 14:00] VITALS: BP 134/62; PULSE 67; RESP 16; TEMP 36.4; O2SAT 98
[2021-08-26 20:01] VITALS: BP 133/79; PULSE 86; RESP 18; TEMP 36.6; O2SAT 98
[2021-08-26] MEDS: quetiapine 100 mg Tablet 200 MG PO (20:15)
[2021-08-26] MEDS: trazodone 100 mg Tablet PO (20:15)
[2021-08-27] MEDS: ondansetron 4 MG Tablet PO (01:58)
[2021-08-27] MEDS: calcium carbonate 500 mg Chew Tablet 1000 MG PO ×2 (02:43→10:36)
[2021-08-27 06:00] VITALS: BP 101/67; PULSE 65; RESP 20; TEMP 36.7; O2SAT 98
[2021-08-27] MEDS: nicotine 2 mg Gum BUCCAL (10:01)
--- NOTE | 2021-08-27 10:36 | PC.NURSE ---
PRN TUMS 2 CHEWABLE TABLETS GIVEN PO PER PT C/O HEARTBURN
--- NOTE | 2021-08-27 12:17 | P.NPUDS_ITS ---
Diagnoses at Discharge Discharge Diagnosis (1) Depression with suicidal ideation: Status: Resolved (2) Suicide attempt: Status: Acute (3) Alcohol dependence, in remission: Status: Acute (4) Drug-induced psychotic disorder: Status: Acute (5) Antisocial personality disorder: Status: Chronic (6) Depressed bipolar I disorder: Status: Resolved Permanent problem details: Patient does not name and get his prescriptions filled when discharged. I am discontinuing all his meds and referring him to outpatient follow-up. Reason for Visit Reason for Visit: SI Brief History: History of Present Illness Emil Castro is a 51 year old male who presented to the emergency department the following report: Chief complaint: Psychiatric Symptoms Stated complaint: SI Time Seen by Provider: 08/23/21 19:44 History of Present Illness:?? HPI: [51]yo patient w/ hx of depression presenting for suicidal ideation with plan.? Patient plans to hang himself and decided against the last minute and came in to the ED. On arrival, the patient is AAOx3 and cooperative with my evaluation. No focal complaints of chest pain, shortness of breath, palpitations, N/V, focal GI/ complaints. Currently denies HI. No complaints of hallucinations. Onset: acute Duration: ongoing Location: home Severity: severe Associated symptoms: Deny chest pain, dyspnea, nausea, rash, palpitations or vomiting He was admitted to the neuropsychiatric unit for definitive treatment of those issues.? Patient is well-known to the unit from multiple past inpatient stays the last of which was in June.? He had previously been here much more often but had been having a modicum of success followed by some recent challenges again.? He reports that after his last stay he had gone to [place] and was doing fairly well and told someone on convoluted story about how he was coming back here to get his mail arranged and that he decided once he was here that he was going to go ahead and say and he went to [facility] and they were lining up a place for him to stay in the next 2 or 3 days.? But then frustrations and bad choices get the best of him which led him to presenting to the hospital yesterday.? He reports another problem that led to him coming his way was that he has he will get his medication for about the last month or so he would not and could not explain whether this was related to him not following through on something to get refills or some other concern.? Review of the chart suggested maybe he was given refills in the left in beginning of June.? Unclear why that occurred.? He was indicated to moving forward, getting his own place to [place] [facility] getting back on medication and trying to remain in the right direction.? Documentation shows that he has been doing better when he comes to his addictive behavior however he reports sobriety extending back more than 6 months and I am unconvinced that that is accurate though.? We discussed the risk benefits alternatives of getting his medications restarted and trying to assist him in stability on that front and he understood agreed proceed as is documented in this note.? An excerpt of his June stay is included below for context. Per his 06/13/2021 [facility] inpatient psychiatric evaluation: History of Present Illness Emil Castro is a 50 year old male who presented to the emergency department the following report: Chief complaint: Psychiatric Symptoms Stated complaint: SI Time Seen by Provider: 06/12/21 21:38 History of Present Illness:?? HPI: [50]yo patient w/ hx of depression BIBA for suicidal ideation with plan. Patient plans to cut his wrist with a knife. for On arrival, the patient is AAOx3 and cooperative with my evaluation. No focal complaints of chest pain, shortness of breath, palpitations, N/V, focal GI/ complaints. Currently denies HI. No complaints of hallucinations. Onset: acute Duration: ongoing Location: home Severity: severe Associated symptoms: Deny chest pain, dyspnea, nausea, rash, palpitations or vomiting. He was admitted to the Neuropsych Unit for definitive treatment of those issues.? We discussed the fact that he has recently been coming off and like he had before and our hope is that he moves forward in his functioning.? He reports that he did go to [place] and he does have a job now.? He reports that when he was coming home with family things got out of sorts and he needed to get away from his discussed avoiding developing the pattern he had before of coming to the hospital for seemingly anything and every time he felt some resistance in his life.? Otherwise he reports that he did relapse on alcohol as his family was drinking but he reports that this is not a pattern he plans to continue.? He reports that he is happy that he got the job that he was interested and is looking forward to going back to [place] very soon to continue [employer] mission with that.? We did call vaccination and he said he would be able to return there.? His blood alcohol was 80 on admission.? Otherwise he denies any changes and we discussed getting him connected with [facility] given this plan to be in [place].? An excerpt of his last hospitalization is included below given the no substantive changes. Per his 06/02/2021 [facility] inpatient psychiatric evaluation: History of Present Illness Emil Castro is a 50 year old male who presented to the emergency department with the following report: Chief Complaint: Psychiatric Symptoms Stated Complaint: SI Time Seen by Provider: 06/01/21 21:19? ? History of Present Illness: ?? 50-year-old male with a history of suicidality.? He also has a history of drug- induced psychosis.? He has a recent admission to the neuropsychiatric unit at this facility for suicidality.? He states he is not taking any medications currently.? He does deny use of alcohol or any other substances at this time.? He states despite this, he continues to have suicidal thoughts.? His plan is to use a rope, or overdose on medication.? He denies auditory or visual hallucinations at this time.? He presents of his own accord, willing to be admitted MD complaint: suicidal ideation Onset (ago): day(s) Duration: constant History of same: Yes Relieving factors: none Exacerbating factors: none Associated psychiatric symptoms: depression and suicidal ideation Associated symptoms: Reports suicidal ideation; Deny auditory hallucinations, visual hallucinations, delusions or homicidal ideation Treatments prior to arrival: none If self harm: admits thoughts of self harm and has plan He was admitted to the neuropsychiatric unit for definitive treatment of those issues.? He presents today continuing on the recent theme of sobriety and not having anything in his system when he comes to the hospital which is quite divergence from previous hospitalizations which have been many.? He reports that he has not necessarily been at the [facility] and is unclear about his stability in the [facility].? He reports that he had not been taking his medication but he did restart the medication here.? We once again reviewed with him as we did in his last hospitalization that we will likely take something more than Seroquel to break the cycle and he reportedly would consider it.? He denies any additional changes since his last hospitalization and we discussed having the [facility] program come by on Friday.? We discussed the risk-benefit alternatives of initiating an additional antipsychotic and he understood and agreed proceed as is documented in this note, specifically reporting that he will think about it. Per his 05/14/2021 [facility] inpatient psychiatric evaluation: History of Present Illness Emil Castro is a 50 year old male who presented to the emergency department the following report: Chief Complaint: Psychiatric Symptoms Stated Complaint: SI Time Seen by Provider: 05/13/21 15:04 Source: patient Mode of arrival: ambulatory Limitations: no limitations?? ? History of Present Illness:? ?? 50-year-old male who has a history of bipolar disorder along with suicidality in the past.? He states he has been having increasing depression and hallucinations especially auditory hallucinations the last 2 to 3 days.? He states he has not been taking his medicine he has been having suicidal thoughts.? He wants to get out.? He denies any worsening improving factors.? Denies any attempts.Associated symptoms: Reports auditory hallucinations, depression and suicidal ideation He was admitted to the neuropsychiatric unit for definitive treatment of those issues.? Patient presents today well known to this field underwriter through numerous past psychiatric hospitalizations.? He was last discharged on March 11, 2021 he was started in the [facility] recently.? He had regular [facility] follow-up.? He had a psychiatric evaluation on 05/07/2021 and then was engaged by [facility] and reports that he has been sober for about 60 days, he recently lost his brother about 4 months ago, he reports he moved closer to this region from [place] which he reports was really bad.? He reports that he is now the [facility] and that has been better but in the last few days he reports that he has struggled with suicidal thoughts.? He reports that he has been taking his medication which was only Seroquel 300 mg p.o. nightly he reports that for what ever reason he has been feeling more suicidal and less stable over the past few days.? We discussed the risk-benefit alternatives of continuing his current medication and he understood agreed proceed as is documented in this note.? We also discussed the prospect of getting started on antidepressant but though he endorsed feeling suicidal he denied being depressed.? The only substantive changes that he reports since his last hospitalization is that he no longer lives in [place] and that he reports he been sober for 2 months and his UDS was negative for substances of abuse.? An excerpt of his 2020 [facility] inpatient psychiatric evaluation is included below for context. Per his 03/08/2021 [facility] inpatient psychiatric evaluation: History of Present Illness Emil Castro is a 50 year old male who presented to the emergency department with the following report: Chief Complaint: Psychiatric Symptoms Stated Complaint: si Time Seen by Provider: 03/07/21 19:35 Source: patient Mode of arrival: ambulatory Limitations: no limitations History of Present Illness:? HPI Narrative: 50-year-old male who is here for suicidal ideation. He states he been having suicidal thoughts over the last 10 days. He states that increased agitation has been hearing voices states that he does want to kill himself and has a plan of jumping in front of a semitruck. He also admits to chronic meth use with meth use recently as well. Denies any worst improving factors. Associated symptoms: Reports auditory hallucinations, depression and suicidal ideation. He was made to the neuropsychiatric unit for the treatment of those issues.? Is well-known to this unit secondary to multiple things hospitalizations.? He presents today much like his previous hospitalizations is a fairly resistant historian.? Today it seems more likely that is secondary to withdrawal from methamphetamine causing him to have some confusion, increased somnolence and some irritability.? His answers to questions are generalities not specifics but at this point it seems more a product of his intoxication/withdrawal that it does volitional behavior.? He gave some report of being in [place] since his discharge in April of this year then returning here recently but he had no reasons for why he went to [place], what he was doing there, why he returned here, what his recovery has been like.? He can give no helpful information about when he last took medication, what he was taking for sure, but he reports taking Seroquel and Klonopin.? Of course we discussed Klonopin not being a great idea overall for someone with such significant addiction.? He did not give any real information about where he has been living, how he has been providing for himself, any other drug and alcohol or mental health services being utilized the last 10 months.? We agreed we would investigate some of this information and hopefully determine what he has been doing and how we can help.? An excerpt from his 04/30/2020 discharge summary is included below for context. Hospital Course Hospital Course He quickly acclimated to the individual, group and milieu therapies provided. It appeared that may be he was just needing a place to stay tonight possibly as he was very focused towards being discharged after being here a couple of days. We did get his medications restarted and he did have modest improvement. He worked with the treatment team but reported he had his own plan in place that he wanted to follow through on. He was able to contract for safety outside of the hospital prior to discharge. During the hospitalization, patient had routine laboratory studies which were within normal limits except for few outliers. Additionally there was a general medical evaluation which was also within normal limits and revealed no new acute processes. Discharge Summary: At the time of discharge, lethality was denied and psychosis was resolving. Mood and anxiety were well managed. Patient endorsed a plan to avoid all drugs of abuse and follow-up with the aftercare recommendations of the treatment team. Patient was evaluated and deemed to be absent credible lethality, and was voluntary and denied wanting any continued inpatient hospitalization, so he was discharged. Involuntary Hold Information 96 Hour Hold: 96 Hour Involuntary Admission: No 96 Hour Hold Ending Date: 05/18/21 96 Hour Hold Ending Time: 00:01 Mental Status Exam MSE Comments: This is an obese white male in hospital scrubs with limited grooming and eye contact.? No abnormal movements except for mild psychomotor agitation.? Mostly cooperative with exam in mild distress.? Speech was limited and mostly normal rate and decreased volume.? Mood described as fine, when he got here affect congruent.? Thought process mostly organized.? Thought content: Patient denied suicidal and homicidal ideation, there were no delusions reported or noted, he endorsed auditory but denied visual hallucinations.? Attention and concentration were limited and memory was mostly reliable but none were formally tested.? He is alert and oriented x3.? Insight and judgment are limited, impulse control is impaired. Discharge Data Studies Completed and Pending: Laboratory Results WBC 15.3 10^3/uL (4.0 -10.0) H 08/23/21 21:35 RBC 4.90 10^6/uL (4.1 -5.3) 08/23/21 21:35 Hgb 16.0 g/dL (11.7-1 6.6) 08/23/21 21:35 Hct 46.3 % (42.0-52.0 ) 08/23/21 21:35 MCV 94.5 fl (80-94) H 08/23/21 21:35 MCH 32.7 pg (28.0-34. 0) 08/23/21 21:35 MCHC 34.6 g/dL (30.0-3 6.0) 08/23/21 21:35 RDW 13.2 % (12.1-15.1 ) 08/23/21 21:35 Plt Count 256 10^3/cmm (130 -400) 08/23/21 21:35 MPV 10.1 fL (7.4-10.4 ) 08/23/21 21:35 Neut % (Auto) 70.4 % 08/23/21 21:35 Lymph % (Auto) 15.0 % 08/23/21 21:35 Converse % (Auto) 12.1 % 08/23/21 21:35 Eos % (Auto) 1.5 % 08/23/21 21:35 Baso % (Auto) 0.5 % 08/23/21 21:35 Neut # (Auto) 10.73 10^3/uL (1. 8-7.7) H 08/23/21 21:35 Lymph # (Auto) 2.3 10^3/uL (0.8- 4.8) 08/23/21 21:35 Converse # (Auto) 1.9 10^3/uL (0.2- 0.9) H 08/23/21 21:35 Eos # (Auto) 0.2 10^3/uL (0.0- 0.8) 08/23/21 21:35 Baso # (Auto) 0.1 10^3/uL (0.0- 0.1) 08/23/21 21:35 Nucleated RBC % (a uto) 0 % 08/23/21 21:35 Nucleated RBCs # 0.0 /100WBC 08/23/21 21:35 Sodium 139 mmol/L (136-1 45) 08/23/21 21:35 Potassium 3.9 mmol/L (3.5-5 .1) 08/23/21 21:35 Chloride 98 mmol/L (98-107 ) 08/23/21 21:35 Carbon Dioxide 27 mmol/L (22-29) 08/23/21 21:35 Anion Gap 17.9 (5-19) 08/23/21 21:35 BUN 20 mg/dL (6-20) 08/23/21 21:35 Creatinine 1.2 mg/dL (0.7-1. 2) 08/23/21 21:35 GFR Calculation 63.6 mL/min (90-1 30) L 08/23/21 21:35 Glucose 120 mg/dL (65-115 ) H 08/23/21 21:35 Calculated Osmolal ity 292 mOsm/kg (285- 295) 08/23/21 21:35 Calcium 9.8 mg/dL (8.5-10 .5) 08/23/21 21:35 Total Bilirubin 1.5 mg/dL (0.15-1 .2) H 08/23/21 21:35 AST 26 U/L (0-40) 08/23/21 21:35 ALT 25 U/L (0-41) 08/23/21 21:35 Alkaline Phosphata se 99 IU/L (40-130) 08/23/21 21:35 Total Protein 7.7 g/dL (6.6-8.7 ) 08/23/21 21:35 Albumin 5.2 g/dL (3.5-5.2 ) 08/23/21 21:35 Globulin 2.5 g/dL (1.3-4.6 ) 08/23/21 21:35 Lipase 35 U/L (13-60) 08/23/21 21:35 TSH 1.50 uIU/mL (0.27 -4.20) 08/23/21 21:35 Free T4 1.39 ng/dL (0.82- 1.77) 08/23/21 21:35 Salicylates < 0.3 mg/dL (3-10 ) L 08/23/21 21:35 Urine Opiates Scre en Negative ng/mL (N egative) 08/23/21 21:35 Acetaminophen < 5.0 ug/mL (10-3 0) L 08/23/21 21:35 Ur Barbiturates Sc reen Negative ng/mL (N egative) 08/23/21 21:35 Ur Phencyclidine S crn Negative ng/mL (N egative) 08/23/21 21:35 Ur Amphetamines Sc reen Positive ng/mL (N egative) H 08/23/21 21:35 U Benzodiazepines Scrn Negative ng/mL (N egative) 08/23/21 21:35 Urine Cocaine Scre en Negative ng/mL (N egative) 08/23/21 21:35 U Marijuana (THC) Screen Negative ng/mL (N egative) 08/23/21 21:35 SARS-CoV-2 Ag (Rap id) Negative (Negati ve) 08/23/21 21:35 Vitals: Last Vital Signs Temp 98.0 F 08/27/21 06:00 Pulse 65 08/27/21 06:00 Resp 20 H 08/27/21 06:00 BP 101/67 08/27/21 06:00 Pulse Ox 98 08/27/21 06:00 Discharge Plan Discharge Patient Disposition: Home Condition: Stable Prescriptions: New quetiapine 100 mg Tablet 200 mg PO BEDTIME 30 Days Qty: 30 1RF trazodone 100 mg Tablet 100 mg PO BEDTIME 30 Days Qty: 30 1RF Discharge Orders: Discharge Order (Routine); Ordered 08/27/21 Ordered By: Sam Bond Referrals: Alejandra Farah PMHNP [Staff Physician] - 08/31/21 8:45 am Discharge Diet: Regular Discharge Activity: Resume usual activity Patient Instructions: Trazodone (By mouth), Quetiapine (By mouth), Opioid Safety Discharge Attestations NPU Time Spent in Discharge Care*: less than 30 min Specific Discharge Activities: Specific discharge activities: educating patient, discussing with piano case and bench assembler/social workers/dc planners, documenting/other paperwork and evaluating patient/reviewing data Status at Discharge: Cognitive status at discharge: cognitively intact , Behavioral status at discharge: cooperative , Coding Level of Care Code Acute Chg DC note Diagnoses Depression with suicidal ideation F32.A; R45.851 Suicide attempt T14.91XA Alcohol dependence, in remission F10.21 Drug-induced psychotic disorder F19.959 Antisocial personality disorder F60.2 Depressed bipolar I disorder F31.9
[2021-08-27 12:28] VITALS: BP 101/67; PULSE 65; RESP 20; TEMP 36.7; O2SAT 98
== END 2021-08-27 13:30 | disposition home or self-care (01) | DRG 885 ==
LOC: ER 08-24 12:02 → NP 08-24 12:30
PROVIDERS: Emergency Medicine; Admitting Provider Psychiatry & Neurology Psychiatry; Emergency Provider Family Medicine; Visit Provider Psychiatry & Neurology Psychiatry
DX: F31.9 Bipolar disorder, unspecified (principal); R45.851 Suicidal ideations; F10.21 Alcohol dependence, in remission; F60.2 Antisocial personality disorder; F19.959 Other psychoactive substance use, unspecified with psychoactive substance-induced psychotic disorder, unspecified; F17.200 Nicotine dependence, unspecified, uncomplicated; Z20.822 Contact with and (suspected) exposure to COVID-19
CPT/HCPCS: 80053; 80306; 80307; 83690; 84439; 84443; 85025; 87426; 93005; 97150; 97165; 99285; Q0162

== ENCOUNTER 2021-09-12 17:36 | Emergency (ER) | payer MEDICARE, MEDICAID, SELFPAY ==
[2021-09-12 18:00] VITALS: BP 149/93; PULSE 86; RESP 20; O2SAT 97
--- NOTE | 2021-09-12 18:18 | ED.C_ITS ---
Documented by User: Nanda Aguilera MD 09/13/21 05:32 HPI - Psych General: Chief Complaint: Psychiatric Symptoms Stated Complaint: SI/HI Time Seen by Provider: 09/12/21 18:10 Source: patient Mode of arrival: ambulatory Limitations: no limitations History of Present Illness: 51-year-old male who is well-known to the ER states that he has been having suicidal and homicidal thoughts today. He denies any specific plan but states that he is scared that he may kill himself he has been admitted recently. He denies any worsening improving factors. He denies any alcohol abuse today. Denies any drug abuse recently. Associated symptoms: Reports depression and suicidal ideation Review of Systems 2 Const: Denies: fever(s), chills, body aches or change in appetite Eyes: Denies: blurry vision or eye discomfort ENMT: Denies: throat pain or dental pain Card: Denies: chest pain Resp: Denies: dyspnea GI: Denies: abdominal pain, nausea, vomiting or diarrhea : Denies: dysuria Musc: Denies: neck pain or back pain Skin/Breast: Denies: rash Neuro: Denies: headache(s) Psych: Reports: depression and suicidal ideation Ish/Lymph: Denies: easy bruising All/Imm: Denies: urticaria PFSH ED PFSH: Medical History Alcohol dependence, in remission Bipolar 2 disorder [facility] Social History Smoking and tobacco status: current every day smoker Physical Exam Const: COMMON NORMALS: no acute distress, patient oriented x3 and healthy appearing HENMT: COMMON NORMALS: normocephalic and atraumatic HEAD & SCALP: normocephalic and atraumatic Eye: COMMON NORMALS: Equal, round and reactive pupils present and EOMs intact bilaterally PUPIL: Yes Equal, round and reactive pupils present Neck/C-Spine: COMMON NORMALS: full ROM and supple Chest: COMMONS NORMALS: normal inspection of the chest and normal palpation of entire chest wall Resp: COMMON NORMALS: normal respiratory effort, No retractions, No use of accessory muscles and clear to auscultation bilaterally AUSCULTATION: clear to auscultation bilaterally Cardio: COMMON NORMALS: regular rate, regular rhythm and No murmurs present (Cardio) RATE: regular rate RHYTHM: regular rhythm GI: COMMON NORMALS: Normal to inspection, nondistended, normoactive bowel sounds present, Soft to palpation, non-tender and no masses PALPATION: Yes Soft to palpation Extremity: COMMON NORMALS: normal to inspection and full ROM Neuro: COMMON NORMALS: patient oriented x3, moves all extremities and no focal motor deficits Psych: COMMON NORMALS: mental status grossly normal, Normal thought process present and cooperative THOUGHT PROCESS: Normal thought process present THOUGHT CONTENT: Yes Suicidality present Skin: COMMON NORMALS: no rashes or lesions noted and no wounds GENERAL SKIN EXAM: no rashes or lesions noted Course Vital Signs: Vital signs: Vital Signs Temperature 98.5 F 09/13/21 04:12 Pulse Rate 82 09/13/21 06:47 Respiratory Rate 18 09/13/21 06:47 Blood Pressure 122/76 09/13/21 06:47 Pulse Oximetry 97 09/13/21 06:47 MDM - Psych Medical Decision Making Patient presents here with suicidal ideations patient is medically cleared currently seeking transfer patient's care turned over to Dr[facility] Lars[facility] at [facility] still seeking placement Lab Data : 09/12/21 21:21 09/12/21 21:21 Laboratory Results WBC 13.5 10^3/uL (4.0-10.0) H 09/12/21 21:21 RBC 4.46 10^6/uL (4.1-5.3) 09/12/21 21:21 Hgb 14.7 g/dL (11.7-16.6) 09/12/21 21:21 Hct 41.9 % (42.0-52.0) L 09/12/21 21:21 MCV 93.9 fl (80-94) 09/12/21 21:21 MCH 33.0 pg (28.0-34.0) 09/12/21 21:21 MCHC 35.1 g/dL (30.0-36.0) 09/12/21 21:21 RDW 12.9 % (12.1-15.1) 09/12/21 21:21 Plt Count 212 10^3/cmm (130-400) 09/12/21 21:21 MPV 9.7 fL (7.4-10.4) 09/12/21 21:21 Neut % (Auto) 65.1 % 09/12/21 21:21 Lymph % (Auto) 20.2 % 09/12/21 21:21 [place] % (Auto) 11.0 % 09/12/21 21:21 Eos % (Auto) 2.3 % 09/12/21 21:21 Baso % (Auto) 0.7 % 09/12/21 21:21 Neut # (Auto) 8.79 10^3/uL (1.8-7.7) H 09/12/21 21:21 Lymph # (Auto) 2.7 10^3/uL (0.8-4.8) 09/12/21 21:21 [place] # (Auto) 1.5 10^3/uL (0.2-0.9) H 09/12/21 21:21 Eos # (Auto) 0.3 10^3/uL (0.0-0.8) 09/12/21 21:21 Baso # (Auto) 0.1 10^3/uL (0.0-0.1) 09/12/21 21:21 Nucleated RBC % (auto) 0 % 09/12/21 21:21 Nucleated RBCs # 0.0 /100WBC 09/12/21 21:21 Sodium 139 mmol/L (136-145) 09/12/21 21:21 Potassium 3.8 mmol/L (3.5-5.1) 09/12/21 21:21 Chloride 101 mmol/L (98-107) 09/12/21 21:21 Carbon Dioxide 27 mmol/L (22-29) 09/12/21 21:21 Anion Gap 14.8 (5-19) 09/12/21 21:21 BUN 12 mg/dL (6-20) 09/12/21 21:21 Creatinine 0.7 mg/dL (0.7-1.2) 09/12/21 21:21 GFR Calculation 118.4 mL/min (90-130) 09/12/21 21:21 Glucose 89 mg/dL (65-115) 09/12/21 21:21 Calculated Osmolality 287 mOsm/kg (285-295) 09/12/21 21:21 Calcium 8.7 mg/dL (8.5-10.5) 09/12/21 21:21 Total Bilirubin 0.6 mg/dL (0.15-1.2) 09/12/21 21:21 AST 20 U/L (0-40) 09/12/21 21:21 ALT 23 U/L (0-41) 09/12/21 21:21 Alkaline Phosphatase 69 IU/L (40-130) 09/12/21 21:21 Total Protein 6.2 g/dL (6.6-8.7) L 09/12/21 21:21 Albumin 4.3 g/dL (3.5-5.2) 09/12/21 21:21 Globulin 1.9 g/dL (1.3-4.6) 09/12/21 21:21 TSH 2.25 uIU/mL (0.27-4.20) 09/12/21 21:21 Urine Color Yellow (Yellow) 09/13/21 09:25 Urine Appearance Clear (CLEAR) 09/13/21 09:25 Urine pH 6 (5-7) 09/13/21 09:25 Ur Specific [place] 1.015 (1.005-1.030) 09/13/21 09:25 Urine Protein Neg (Negative) 09/13/21 09:25 Urine Glucose (UA) Norm (Normal) 09/13/21 09:25 Urine Ketones Negative (Negative) 09/13/21 09:25 Urine Blood Neg (Negative) 09/13/21 09:25 Urine Nitrate Negative (Negative) 09/13/21 09:25 Urine Bilirubin Neg (Negative) 09/13/21 09:25 Urine Urobilinogen Norm mg/dL (Negative) 09/13/21 09:25 Ur Leukocyte Esterase Negative (Negative) 09/13/21 09:25 Salicylates < 0.3 mg/dL (3-10) L 09/12/21 21:21 Urine Opiates Screen Negative ng/mL (Negative) 09/12/21 18:10 Acetaminophen < 5.0 ug/mL (10-30) L 09/12/21 21:21 Ur Barbiturates Screen Negative ng/mL (Negative) 09/12/21 18:10 Ur Phencyclidine Scrn Negative ng/mL (Negative) 09/12/21 18:10 Ur Amphetamines Screen Negative ng/mL (Negative) 09/12/21 18:10 U Benzodiazepines Scrn Negative ng/mL (Negative) 09/12/21 18:10 Urine Cocaine Screen Negative ng/mL (Negative) 09/12/21 18:10 U Marijuana (THC) Screen Negative ng/mL (Negative) 09/12/21 18:10 Ethyl Alcohol < 10 mg/dL (0-10) 09/12/21 21:21 SARS-CoV-2 Ag (Rapid) Negative (Negative) 09/12/21 21:21 Discharge Plan Discharge Patient Disposition: er Psychiatric Hosp Clinical Impression: Suicidal ideation, Bipolar 2 disorder Condition: Stable Sign Out Sign Out Data: Patient Sign Out occurred on 09/13/21 at 09:25. Patient's care was discussed, and care was transferred from to Tico Espana DO. Coding Level of Care Code ED Nursing Project Coordinator for Chg 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 Documented by User: Tico Espana DO 09/13/21 11:28 HPI - Psych General: Chief Complaint: Psychiatric Symptoms Stated Complaint: SI/HI Time Seen by Provider: 09/12/21 18:10 PFSH ED PFSH: Medical History Alcohol dependence, in remission Bipolar 2 disorder [facility] Social History Smoking and tobacco status: current every day smoker Course Vital Signs: Vital signs: Vital Signs Temperature 98.5 F 09/13/21 04:12 Pulse Rate 82 09/13/21 06:47 Respiratory Rate 18 09/13/21 06:47 Blood Pressure 122/76 09/13/21 06:47 Pulse Oximetry 97 09/13/21 06:47 MDM - Psych Medical Decision Making Patient presents here with suicidal ideations patient is medically cleared currently seeking transfer patient's care turned over to Dr. Larsen at this time still seeking placement Care assumed at change of shift. [facility] has agreed to accept patient to be transferred by ambulance in good condition. He did require medication for anxiety prior to discharge Medical Records I reviewed the patient's medical records. Lab Data I reviewed the patient's lab results. : 09/12/21 21:21 09/12/21 21:21 Laboratory Results WBC 13.5 10^3/uL (4.0-10.0) H 09/12/21 21:21 RBC 4.46 10^6/uL (4.1-5.3) 09/12/21 21:21 Hgb 14.7 g/dL (11.7-16.6) 09/12/21 21:21 Hct 41.9 % (42.0-52.0) L 09/12/21 21:21 MCV 93.9 fl (80-94) 09/12/21 21:21 MCH 33.0 pg (28.0-34.0) 09/12/21 21:21 MCHC 35.1 g/dL (30.0-36.0) 09/12/21 21:21 RDW 12.9 % (12.1-15.1) 09/12/21 21:21 Plt Count 212 10^3/cmm (130-400) 09/12/21 21:21 MPV 9.7 fL (7.4-10.4) 09/12/21 21:21 Neut % (Auto) 65.1 % 09/12/21 21:21 Lymph % (Auto) 20.2 % 09/12/21 21:21 [place] % (Auto) 11.0 % 09/12/21 21:21 Eos % (Auto) 2.3 % 09/12/21 21:21 Baso % (Auto) 0.7 % 09/12/21 21:21 Neut # (Auto) 8.79 10^3/uL (1.8-7.7) H 09/12/21 21:21 Lymph # (Auto) 2.7 10^3/uL (0.8-4.8) 09/12/21 21:21 [place] # (Auto) 1.5 10^3/uL (0.2-0.9) H 09/12/21 21:21 Eos # (Auto) 0.3 10^3/uL (0.0-0.8) 09/12/21 21:21 Baso # (Auto) 0.1 10^3/uL (0.0-0.1) 09/12/21 21:21 Nucleated RBC % (auto) 0 % 09/12/21 21:21 Nucleated RBCs # 0.0 /100WBC 09/12/21 21:21 Sodium 139 mmol/L (136-145) 09/12/21 21:21 Potassium 3.8 mmol/L (3.5-5.1) 09/12/21 21:21 Chloride 101 mmol/L (98-107) 09/12/21 21:21 Carbon Dioxide 27 mmol/L (22-29) 09/12/21 21:21 Anion Gap 14.8 (5-19) 09/12/21 21:21 BUN 12 mg/dL (6-20) 09/12/21 21:21 Creatinine 0.7 mg/dL (0.7-1.2) 09/12/21 21:21 GFR Calculation 118.4 mL/min (90-130) 09/12/21 21:21 Glucose 89 mg/dL (65-115) 09/12/21 21:21 Calculated Osmolality 287 mOsm/kg (285-295) 09/12/21 21:21 Calcium 8.7 mg/dL (8.5-10.5) 09/12/21 21:21 Total Bilirubin 0.6 mg/dL (0.15-1.2) 09/12/21 21:21 AST 20 U/L (0-40) 09/12/21 21:21 ALT 23 U/L (0-41) 09/12/21 21:21 Alkaline Phosphatase 69 IU/L (40-130) 09/12/21 21:21 Total Protein 6.2 g/dL (6.6-8.7) L 09/12/21 21:21 Albumin 4.3 g/dL (3.5-5.2) 09/12/21 21:21 Globulin 1.9 g/dL (1.3-4.6) 09/12/21 21:21 TSH 2.25 uIU/mL (0.27-4.20) 09/12/21 21:21 Urine Color Yellow (Yellow) 09/13/21 09:25 Urine Appearance Clear (CLEAR) 09/13/21 09:25 Urine pH 6 (5-7) 09/13/21 09:25 Ur Specific [place] 1.015 (1.005-1.030) 09/13/21 09:25 Urine Protein Neg (Negative) 09/13/21 09:25 Urine Glucose (UA) Norm (Normal) 09/13/21 09:25 Urine Ketones Negative (Negative) 09/13/21 09:25 Urine Blood Neg (Negative) 09/13/21 09:25 Urine Nitrate Negative (Negative) 09/13/21 09:25 Urine Bilirubin Neg (Negative) 09/13/21 09:25 Urine Urobilinogen Norm mg/dL (Negative) 09/13/21 09:25 Ur Leukocyte Esterase Negative (Negative) 09/13/21 09:25 Salicylates < 0.3 mg/dL (3-10) L 09/12/21 21:21 Urine Opiates Screen Negative ng/mL (Negative) 09/12/21 18:10 Acetaminophen < 5.0 ug/mL (10-30) L 09/12/21 21:21 Ur Barbiturates Screen Negative ng/mL (Negative) 09/12/21 18:10 Ur Phencyclidine Scrn Negative ng/mL (Negative) 09/12/21 18:10 Ur Amphetamines Screen Negative ng/mL (Negative) 09/12/21 18:10 U Benzodiazepines Scrn Negative ng/mL (Negative) 09/12/21 18:10 Urine Cocaine Screen Negative ng/mL (Negative) 09/12/21 18:10 U Marijuana (THC) Screen Negative ng/mL (Negative) 09/12/21 18:10 Ethyl Alcohol < 10 mg/dL (0-10) 09/12/21 21:21 SARS-CoV-2 Ag (Rapid) Negative (Negative) 09/12/21 21:21 Discharge Plan Discharge Patient Disposition: Xfer Psychiatric Hosp Clinical Impression: Suicidal ideation, Bipolar 2 disorder Condition: Stable Sign Out Sign Out Data: Patient Sign Out occurred on 09/13/21 at 09:25. Patient's care was discussed, a nd care was transferred from to Tico Espana DO. Coding Level of Care Code ED Nursing Project Coordinator for Lizabethg 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
[2021-09-12] MEDS: LORazepam 2 mg Tablet PO (19:00)
[2021-09-12 20:16] LABS: Amphetamines Screen Urine Negative (Negative); Barbiturates Screen Urine Negative (Negative); Benzodiazepines Screen Urine Negative (Negative); Cocaine Screen Urine Negative (Negative); Opiate Screen Urine Negative (Negative); PCP Screen Urine Negative (Negative); THC Screen Urine Negative (Negative)
[2021-09-12] MEDS: nystatin powder 15 gm Btl 1 APPLIC TOPICAL (20:27)
--- NOTE | 2021-09-12 20:39 | ECG_ITS ---
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 Measurements Intervals Damon Rate: 77 P: 57 WV: 205 QRS: -7 QRSD: 113 T: 43 QT: 394 QTc: 446 Interpretive Statements SINUS RHYTHM MODERATE INTRAVENTRICULAR CONDUCTION DELAY [110+ ms QRS DURATION] Compared to ECG 08/23/2021 22:30:29 Left-axis deviation no longer present Electronically Signed On 09-12-2021 22:24:32 CDT by Reg Gill M.D. [id number]
[2021-09-12 21:35] LABS: Basophils # 0.1 10^3/uL (0.0-0.1); Basophils % 0.7 %; Eosinophils # 0.3 10^3/uL (0.0-0.8); Eosinophils % 2.3 %; Hematocrit 41.9 % (42.0-52.0); Hemoglobin 14.7 g/dL (11.7-16.6); Lymphocytes # 2.7 10^3/uL (0.8-4.8); Lymphocytes % 20.2 %; Mean Corpuscular HGB Conc 35.1 g/dL (30.0-36.0); Mean Corpuscular Volume 93.9 fl (80-94); Mean Platelet Volume 9.7 fL (7.4-10.4); Monocytes # 1.5 10^3/uL (0.2-0.9); Neutrophils # 8.79 10^3/uL (1.8-7.7); Neutrophils % 65.1 %; Nucleated Red Blood Cells % 0 %; Platelet Count 212 10^3/cmm (130-400); Red Blood Count 4.46 10^6/uL (4.1-5.3); Red Cell Distribution Width 12.9 % (12.1-15.1); White Blood Count 13.5 10^3/uL (4.0-10.0)
[2021-09-12 21:54] LABS: Alanine Aminotransferase 23 U/L (0-41); Albumin Level 4.3 g/dL (3.5-5.2); Alkaline Phosphatase 69 IU/L (40-130); Anion Gap 14.8 (5-19); Aspartate Amino Transferase 20 U/L (0-40); Blood Urea Nitrogen 12 mg/dL (6-20); Calcium 8.7 mg/dL (8.5-10.5); Carbon Dioxide 27 mmol/L (22-29); Chloride 101 mmol/L (98-107); Globulin 1.9 g/dL (1.3-4.6); Glomerular Filtration Rate 118.4 mL/min (90-130); Glucose 89 mg/dL (65-115); Osmolality Calculated 287 mOsm/kg (285-295); Potassium 3.8 mmol/L (3.5-5.1); Sodium 139 mmol/L (136-145); Total Bilirubin 0.6 mg/dL (0.15-1.2); Total Protein 6.2 g/dL (6.6-8.7)
[2021-09-12 21:58] LABS: SARS Covid-2 Antigen Negative (Negative)
[2021-09-12 22:10] LABS: Acetaminophen < 5.0 ug/mL (10-30); Alcohol Level < 10 mg/dL (0-10); Salicylate < 0.3 mg/dL (3-10)
[2021-09-13 04:12] VITALS: BP 141/89; PULSE 84; RESP 18; TEMP 36.9; O2SAT 96
[2021-09-13 06:47] VITALS: BP 122/76; PULSE 82; RESP 18; O2SAT 97
[2021-09-13] MEDS: lidocaine 2% viscous 15 ML, aluminum-mag hydrox-simethicon 30 ML, sucralfate oral liq 1 GM PO (08:49)
[2021-09-13 09:37] LABS: Add Urine Microscopic? NO; Charge for UA Resulting for Rev
[2021-09-13 09:38] LABS: Bilirubin Urine Neg (Negative); Blood Urine Neg (Negative); Glucose Urine UA Norm (Normal); Ketones Urine Negative (Negative); Leukocyte Esterase Urine Negative (Negative); Nitrate Urine Negative (Negative); Protein Urine Neg (Negative); Specific Gravity, Urine 1.015 (1.005-1.030); Urine Appearance Clear (CLEAR); Urine Color Yellow (Yellow); Urobilinogen Urine Norm (Negative); pH Urine 6 (5-7)
[2021-09-13 10:19] LABS: Thyroid Stimulating Hormone 2.25 uIU/mL (0.27-4.20)
--- NOTE | 2021-09-13 10:27 | PC.NURSE ---
Contacted [facility], they had a psych bed available and was ready to accept the patient. The patient got on the phone with the intake nurse at [place] and explained that his humane officer would not allow him to leave the state and they he could not go to their psychiatric facility.
[2021-09-13] MEDS: haloperidol inj 5 mg/mL INJ 1 mL 2.5 MG IM (11:15)
[2021-09-13 14:00] VITALS: BP 154/96; PULSE 84; RESP 16; O2SAT 97
[2021-09-13] MEDS: nicotine 21 mg Patch 1 PATCH TRANSDERMA (15:29)
== END 2021-09-13 15:35 ==
PROVIDERS: Emergency Medicine; Emergency Provider Family Medicine
DX: F31.9 Bipolar disorder, unspecified (principal); R45.851 Suicidal ideations; F17.200 Nicotine dependence, unspecified, uncomplicated
CPT/HCPCS: 80053; 80306; 80307; 81003; 84443; 85025; 87426; 93005; 99285; J1630

== ENCOUNTER 2022-05-01 19:00 | Inpatient (IN) | payer MEDICARE, MEDICAID, SELFPAY ==
[2022-05-01 19:15] VITALS: BMI 33.5
[2022-05-01 19:20] VITALS: PULSE 98; RESP 16; TEMP 36.5; O2SAT 97
--- NOTE | 2022-05-01 19:26 | W.ED.PSYCHS ---
HPI - Psych General: Chief Complaint: Psychiatric Symptoms Stated Complaint: SI Time Seen by Provider: 05/01/22 19:21 Source: patient Mode of arrival: ambulatory Limitations: no limitations History of Present Illness: 51-year-old male states he has a history of depression along with bipolar he had a suicide attempt impassable he states over the last 5 to 6 days he been having increased irritability along with suicidal thoughts he states he had thoughts of hanging himself from a tree. He states that he realized that he needed to get help or reason to harm himself he denies any worsening proving factors he is currently not on any meds. Associated symptoms: Reports depression and suicidal ideation Review of Systems Const: Denies: fever(s), chills, body aches or change in appetite Eyes: Denies: blurry vision or eye discomfort ENMT: Denies: throat pain or dental pain Card: Denies: chest pain Resp: Denies: dyspnea GI: Denies: abdominal pain, nausea, vomiting or diarrhea : Denies: dysuria Musc: Denies: neck pain or back pain Skin/Breast: Denies: rash Neuro: Denies: headache(s) Psych: Reports: depression, irritability and suicidal ideation Ish/Lymph: Denies: easy bruising All/Imm: Denies: urticaria PFSH ED PFSH: Medical History Alcohol dependence, in remission Bipolar 2 disorder [facility] Social History Smoking and tobacco status: current every day smoker Physical Exam Const: COMMON NORMALS: no acute distress, patient oriented x3 and healthy appearing HENMT: COMMON NORMALS: normocephalic and atraumatic HEAD & SCALP: normocephalic and atraumatic Eye: COMMON NORMALS: Equal, round and reactive pupils present and EOMs intact bilaterally PUPIL: Yes Equal, round and reactive pupils present Neck/C-Spine: COMMON NORMALS: full ROM and supple Chest: COMMONS NORMALS: normal inspection of the chest and normal palpation of entire chest wall Resp: COMMON NORMALS: normal respiratory effort, No retractions, No use of accessory muscles and clear to auscultation bilaterally AUSCULTATION: clear to auscultation bilaterally Cardio: COMMON NORMALS: regular rate, regular rhythm and No murmurs present (Cardio) RATE: regular rate RHYTHM: regular rhythm GI: COMMON NORMALS: Normal to inspection, nondistended, normoactive bowel sounds present, Soft to palpation, non-tender and no masses PALPATION: Yes Soft to palpation Extremity: COMMON NORMALS: normal to inspection and full ROM Neuro: COMMON NORMALS: patient oriented x3, moves all extremities and no focal motor deficits Psych: COMMON NORMALS: mental status grossly normal, Normal thought process present and cooperative THOUGHT PROCESS: Normal thought process present THOUGHT CONTENT: Yes Suicidality present Skin: COMMON NORMALS: no rashes or lesions noted and no wounds GENERAL SKIN EXAM: no rashes or lesions noted Course Vital Signs: Vital signs: Vital Signs Temperature 97.7 F 05/01/22 19:20 Pulse Rate 98 05/01/22 19:20 Respiratory Rate 16 05/01/22 19:20 Blood Pressure 126/88 05/01/22 19:32 Pulse Oximetry 97 05/01/22 19:20 Oxygen Delivery Me thod 05/01/22 19:20 MDM - Psych Medical Decision Making Patient presents here with suicidal ideations he was placed on a 96-hour hold he is medically cleared I spoke to Dr. Bond and will admit at this time. Lab Data 05/01/22 19:37 05/01/22 19:37 Laboratory Results WBC 10.1 10^3/uL (4.0-10.0) H 05/01/22 19:37 RBC 5.11 10^6/uL (4.1-5.3) 05/01/22 19:37 Hgb 16.7 g/dL (11.7-16.6) H 05/01/22 19:37 Hct 48.0 % (42.0-52.0) 05/01/22 19:37 MCV 93.9 fl (80-94) 05/01/22 19:37 MCH 32.7 pg (28.0-34.0) 05/01/22 19:37 MCHC 34.8 g/dL (30.0-36.0) 05/01/22 19:37 RDW 12.7 % (12.1-15.1) 05/01/22 19:37 Plt Count 223 10^3/cmm (130-400) 05/01/22 19:37 MPV 9.9 fL (7.4-10.4) 05/01/22 19:37 Neut % (Auto) 54.1 % 05/01/22 19:37 Lymph % (Auto) 30.4 % 05/01/22 19:37 [place] % (Auto) 11.5 % 05/01/22 19:37 Eos % (Auto) 2.6 % 05/01/22 19:37 Baso % (Auto) 0.9 % 05/01/22 19:37 Neut # (Auto) 5.45 10^3/uL (1.8-7.7) 05/01/22 19:37 Lymph # (Auto) 3.1 10^3/uL (0.8-4.8) 05/01/22 19:37 [place] # (Auto) 1.2 10^3/uL (0.2-0.9) H 05/01/22 19:37 Eos # (Auto) 0.3 10^3/uL (0.0-0.8) 05/01/22 19:37 Baso # (Auto) 0.1 10^3/uL (0.0-0.1) 05/01/22 19:37 Nucleated RBC % (auto) 0 % 05/01/22 19:37 Nucleated RBCs # 0.0 /100WBC 05/01/22 19:37 Discharge Plan Discharge Patient Disposition: Admitted As Inpatient Admit Provider: Sam Bond Clinical Impression: Suicidal ideation Condition: Stable Coding Level of Care Code ED Hand Upper And Bottom Lacer for Wilder Long
[2022-05-01 19:32] VITALS: BP 126/88
[2022-05-01 19:52] LABS: Basophils # 0.1 10^3/uL (0.0-0.1); Basophils % 0.9 %; Eosinophils # 0.3 10^3/uL (0.0-0.8); Eosinophils % 2.6 %; Hemoglobin 16.7 g/dL (11.7-16.6); Lymphocytes # 3.1 10^3/uL (0.8-4.8); Lymphocytes % 30.4 %; Mean Corpuscular HGB Conc 34.8 g/dL (30.0-36.0); Mean Corpuscular Hemoglobin 32.7 pg (28.0-34.0); Mean Corpuscular Volume 93.9 fl (80-94); Mean Platelet Volume 9.9 fL (7.4-10.4); Monocytes # 1.2 10^3/uL (0.2-0.9); Monocytes % 11.5 %; Neutrophils # 5.45 10^3/uL (1.8-7.7); Neutrophils % 54.1 %; Nucleated Red Blood Cells % 0 %; Platelet Count 223 10^3/cmm (130-400); Red Blood Count 5.11 10^6/uL (4.1-5.3); Red Cell Distribution Width 12.7 % (12.1-15.1); White Blood Count 10.1 10^3/uL (4.0-10.0)
[2022-05-01] MEDS: LORazepam 1 mg Tablet PO (20:01)
[2022-05-01] MEDS: haloperidol 5 mg Tablet PO (20:01)
[2022-05-01 20:42] LABS: Alanine Aminotransferase 30 U/L (0-41); Albumin Level 4.9 g/dL (3.5-5.2); Alcohol Level 67 mg/dL (0-10); Alkaline Phosphatase 85 U/L (40-130); Anion Gap 14.9 (5-19); Aspartate Amino Transferase 28 U/L (0-40); Blood Urea Nitrogen 12 mg/dL (6-20); Calcium 9.8 mg/dL (8.5-10.5); Carbon Dioxide 27 mmol/L (22-29); Chloride 98 mmol/L (98-107); Globulin 2.8 g/dL (1.3-4.6); Glomerular Filtration Rate 101.5 mL/min (90-130); Glucose 93 mg/dL (65-115); Osmolality Calculated 281 mOsm/kg (285-295); Potassium 3.9 mmol/L (3.5-5.1); Sodium 136 mmol/L (136-145); Total Bilirubin 0.6 mg/dL (0.15-1.2); Total Protein 7.7 g/dL (6.6-8.7)
[2022-05-01 20:46] LABS: Acetaminophen < 5.0 ug/mL (10-30); Salicylate < 0.3 mg/dL (3-10)
[2022-05-01 20:46] LABS: Amphetamines Screen Urine Negative (Negative); Barbiturates Screen Urine Negative (Negative); Benzodiazepines Screen Urine Negative (Negative); Cocaine Screen Urine Negative (Negative); Opiate Screen Urine Negative (Negative); PCP Screen Urine Negative (Negative); THC Screen Urine Negative (Negative)
[2022-05-01 21:30] VITALS: BP 136/92; PULSE 93; RESP 17; TEMP 36.4; O2SAT 97
[2022-05-01] MEDS: trazodone 50 mg Tablet PO (22:14)
[2022-05-01] MEDS: hyDROXYzine 25 mg Capsule 50 MG PO (22:14)
--- NOTE | 2022-05-01 23:04 | PC.NURSE ---
Upon admit to unit, patient stated he was anxious & had been given medication while in the ER to help calm him down. This RN gave Hydoxizne 50mg & Trazodone at 2215.
[2022-05-02 06:00] VITALS: BP 110/73; PULSE 73; RESP 18; TEMP 36.4; O2SAT 94
[2022-05-02] MEDS: hyDROXYzine 25 mg Capsule 50 MG PO (09:31)
--- NOTE | 2022-05-02 10:58 | PC.NURSE ---
At approximately 0930 pt voiced complaints of anxiety 09/16. Medicated per request with vistaril. Pt rested after receiving the medication. Continues to rest in bed with his eye closed; respirations even and unlabored.
--- NOTE | 2022-05-02 12:22 | P.NPUHP_ITS ---
Providers/Chief Complaint Admitting Physician: Sam Bond MD Chief Complaint: SI HPI NPU History of Present Illness Emil Castro is a 51 year old male who presented to the emergency department with the following report: Chief Complaint: Psychiatric Symptoms Stated Complaint: SI Time Seen by Provider: 05/01/22 19:21 Source: patient Mode of arrival: ambulatory Limitations: no limitations History of Present Illness: 51-year-old male states he has a history of depression along with bipolar he had a suicide attempt impassable he states over the last 5 to 6 days he been having increased irritability along with suicidal thoughts he states he had thoughts of hanging himself from a tree. He states t hat he realized that he needed to get help or reason to harm himself he denies any worsening proving factors he is currently not on any meds. Associated symptoms: Reports depression and suicidal ideation He was admitted to the neuropsychiatric unit for definitive treatment of those issues. He presents today reporting that he had been spending most of his time after his last discharge in [place]. He reports that he has been working and doing fairly well. He reports initially he was taking his medication but at some point he stopped taking it and he could not give any reasonable explanation for why he did that or why he has a habit of doing that. He reports that he came back to [place] for some time off and to do some camping. He reports that he started having great irritability with people around him started having some really negative thoughts about reacting to his irritability. He thought then that it was best to come to the hospital before he did something that he regretted. We discussed the risk benefits and alternatives of resuming the medications he had previously done well on and he understood and agreed to proceed as is documented in this note. An excerpt of his last discharge summary is included below for context as he was not interested in details from a history standpoint. Per his 08/27/2021 [facility] inpatient psychiatric discharge summary: Discharge Diagnosis (1) Depression with suicidal ideation: Status: Resolved (2) Suicide attempt: Status: Acute (3) Alcohol dependence, in remission: Status: Acute (4) Drug-induced psychotic disorder: Status: Acute (5) Antisocial personality disorder: Status: Chronic (6) Depressed bipolar I disorder: Status: Resolved Permanent problem details: Patient does not name and get his prescriptions filled when discharged. I am discontinuing all his meds and referring him to outpatient follow-up. Reason for Visit Reason for Visit: SI Brief History: History of Present Illness Emil Castro is a 51 year old male who presented to the emergency department the following report: Chief complaint: Psychiatric Symptoms Stated complaint: SI Time Seen by Provider: 08/23/21 19:44 History of Present Illness: HPI: [51]yo patient w/ hx of depression presenting for suicidal ideation with plan. Patient plans to hang himself and decided against the last minute and came in to the ED. On arrival, the patient is AAOx3 and cooperative with my evaluation. No focal complaints of chest pain, shortness of breath, palpitations, N/V, focal GI/ complaints. Currently denies HI. No complaints of hallucinations. Onset: acute Duration: ongoing Location: home Severity: severe Associated symptoms: Deny chest pain, dyspnea, nausea, rash, palpitations or vomiting He was admitted to the neuropsychiatric unit for definitive treatment of those issues. Patient is well-known to the unit from multiple past inpatient stays the last of which was in June. He had previously been here much more often but had been having a modicum of success followed by some recent challenges again. He reports that after his last stay he had gone to [place] and was doing fairly well and told someone on convoluted story about how he was coming back here to get his mail arranged and that he decided once he was here that he was going to go ahead and say and he went to [facility] and they were lining up a place for him to stay in the next 2 or 3 days. But then frustrations and bad choices get the best of him which led him to presenting to the hospital yesterday. He reports another problem that led to him coming his way was that he has he will get his medication for about the last month or so he would not and could not explain whether this was related to him not following through on something to get refills or some other concern. Review of the chart suggested maybe he was given refills in the left in beginning of June. Unclear why that occurred. He was indicated to moving forward, getting his own place to [facility] getting back on medication and trying to remain in the right direction. Documentation shows that he has been doing better when he comes to his addictive behavior however he reports sobriety extending back more than 6 months and I am unconvinced that that is accurate though. We discussed the risk benefits alternatives of getting his medications restarted and trying to assist him in stability on that front and he understood agreed proceed as is documented in this note. An excerpt of his June stay is included below for context. Per his 06/13/2021 [facility] inpatient psychiatric evaluation: History of Present Illness Emil Castro is a 50 year old male who presented to the emergency department the following report: Chief complaint: Psychiatric Symptoms Stated complaint: SI Time Seen by Provider: 06/12/21 21:38 History of Present Illness: HPI: [50]yo patient w/ hx of depression BIBA for suicidal ideation with plan. Patient plans to cut his wrist with a knife. for On arrival, the patient is AAOx3 and cooperative with my evaluation. No focal complaints of chest pain, shortness of breath, palpitations, N/V, focal GI/ complaints. Currently denies HI. No complaints of hallucinations. Onset: acute Duration: ongoing Location: home Severity: severe Associated symptoms: Deny chest pain, dyspnea, nausea, rash, palpitations or vomiting. He was admitted to the Neuropsych Unit for definitive treatment of those issues. We discussed the fact that he has recently been coming off and like he had before and our hope is that he moves forward in his functioning. He reports that he did go to [place] and he does have a job now. He reports that when he was coming home with family things got out of sorts and he needed to get away from his discussed avoiding developing the pattern he had before of coming to the hospital for seemingly anything and every time he felt some resistance in his life. Otherwise he reports that he did relapse on alcohol as his family was drinking but he reports that this is not a pattern he plans to continue. He reports that he is happy that he got the job that he was interested and is looking forward to going back to [place] very soon to continue [employer] mission with that. We did call vaccination and he said he would be able to return there. His blood alcohol was 80 on admission. Otherwise he denies any changes and we discussed getting him connected with [facility] given this plan to be in [place]. An excerpt of his last hospitalization is included below given the no substantive changes. Per his 06/02/2021 [facility] inpatient psychiatric evaluation: History of Present Illness Emil Castro is a 50 year old male who presented to the emergency department with the following report: Chief Complaint: Psychiatric Symptoms Stated Complaint: SI Time Seen by Provider: 06/01/21 21:19 History of Present Illness: 50-year-old male with a history of suicidality. He also has a history of drug- induced psychosis. He has a recent admission to the neuropsychiatric unit at this facility for suicidality. He states he is not taking any medications currently. He does deny use of alcohol or any other substances at this time. He states despite this, he continues to have suicidal thoughts. His plan is to use a rope, or overdose on medication. He denies auditory or visual hallucinations at this time. He presents of his own accord, willing to be admitted MD complaint: suicidal ideation Onset (ago): day(s) Duration: constant History of same: Yes Relieving factors: none Exacerbating factors: none Associated psychiatric symptoms: depression and suicidal ideation Associated symptoms: Reports suicidal ideation; Deny auditory hallucinations, visual hallucinations, delusions or homicidal ideation Treatments prior to arrival: none If self harm: admits thoughts of self harm and has plan He was admitted to the neuropsychiatric unit for definitive treatment of those issues. He presents today continuing on the recent theme of sobriety and not having anything in his system when he comes to the hospital which is quite divergence from previous hospitalizations which have been many. He reports that he has not necessarily been at the [facility] and is unclear about his stability in the [facility]. He reports that he had not been taking his medication but he did restart the medication here. We once again reviewed with him as we did in his last hospitalization that we will likely take something more than Seroquel to break the cycle and he reportedly would consider it. He denies any additional changes since his last hospitalization and we discussed having the [facility] program come by on Friday. We discussed the risk-benefit alternatives of initiating an additional antipsychotic and he understood and agreed proceed as is documented in this note, specifically reporting that he will think about it. Per his 05/14/2021 [facility] inpatient psychiatric evaluation: History of Present Illness Emil Castro is a 50 year old male who presented to the emergency department the following report: Chief Complaint: Psychiatric Symptoms Stated Complaint: SI Time Seen by Provider: 05/13/21 15:04 Source: patient Mode of arrival: ambulatory Limitations: no limitations History of Present Illness: 50-year-old male who has a history of bipolar disorder along with suicidality in the past. He states he has been having increasing depression and hallucinations especially auditory hallucinations the last 2 to 3 days. He states he has not been taking his medicine he has been having suicidal thoughts. He wants to get out. He denies any worsening improving factors. Denies any attempts.Associated symptoms: Reports auditory hallucinations, depression and suicidal ideation He was admitted to the neuropsychiatric unit for definitive treatment of those issues. 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 He was last discharged on March 11, 2021 he was started in the [facility] program recently. He had regular [facility] follow-up. He had a psychiatric evaluation on 05/07/2021 and then [facility] that he has been sober for about 60 days, he recently lost his brother about 4 months ago, he reports he moved closer to this region from [place] which he reports was really bad. He reports that he is now the [employer] [employer] [facility] [employer] and that has been better but in the last few days he reports that he has struggled with suicidal thoughts. He reports that he has been taking his medication which was only Seroquel 300 mg p.o. nightly he reports that for what ever reason he has been feeling more suicidal and less stable over the past few days. We discussed the risk-benefit alternatives of continuing his current medication and he understood agreed proceed as is documented in this note. We also discussed the prospect of getting started on antidepressant but though he endorsed feeling suicidal he denied being depressed. The only substantive changes that he reports since his last hospitalization is that he no longer lives in [place] and that he reports he been sober for 2 months and his UDS was negative for substances of abuse. An excerpt of his 2020 [facility] inpatient psychi atric evaluation is included below for context. Per his 03/08/2021 [facility] inpatient psychiatric evaluation: History of Present Illness Emil Castro is a 50 year old male who presented to the emergency department with the following report: Chief Complaint: Psychiatric Symptoms Stated Complaint: si Time Seen by Provider: 03/07/21 19:35 Source: patient Mode of arrival: ambulatory Limitations: no limitations History of Present Illness: HPI Narrative: 50-year-old male who is here for suicidal ideation. He states he been having suicidal thoughts over the last 10 days. He states that increased agitation has been hearing voices states that he does want to kill himself and has a plan of jumping in front of a semitruck. He also admits to chronic meth use with meth use recently as well. Denies any worst improving factors. Associated symptoms: Reports auditory hallucinations, depression and suicidal ideation. He was made to the neuropsychiatric unit for the treatment of those issues. Is well-known to this unit secondary to multiple things hospitalizations. He presents today much like his previous hospitalizations is a fairly resistant historian. Today it seems more likely that is secondary to withdrawal from methamphetamine causing him to have some confusion, increased somnolence and some irritability. His answers to questions are generalities not specifics but at this point it seems more a product of his intoxication/withdrawal that it does volitional behavior. He gave some report of being in [place] since his discharge in April of this year then returning here recently but he had no reasons for why he went to [place], what he was doing there, why he returned here, what his recovery has been like. He can give no helpful information about when he last took medication, what he was taking for sure, but he reports taking Seroquel and Klonopin. Of course we discussed Klonopin not being a great idea overall for someone with such significant addiction. He did not give any real information about where he has been living, how he has been providing for himself, any other drug and alcohol or mental health services being utilized the last 10 months. We agreed we would investigate some of this information and hopefully determine what he has been doing and how we can help. An excerpt from his 04/30/2020 discharge summary is included below for context. Hospital Course Hospital Course He quickly acclimated to the individual, group and milieu therapies provided. It appeared that may be he was just needing a place to stay tonight possibly as he was very focused towards being discharged after being here a couple of days. We did get his medications restarted and he did have modest improvement. He worked with the treatment team but reported he had his own plan in place that he wanted to follow through on. He was able to contract for safety outside of the hospital prior to discharge. During the hospitalization, patient had routine laboratory studies which were within normal limits except for few outliers. Additionally there was a general medical evaluation which was also within normal limits and revealed no new acute processes. Discharge Summary: At the time of discharge, lethality was denied and psychosis was resolving. Mood and anxiety were well managed. Patient endorsed a plan to avoid all drugs of abuse and follow-up with the aftercare recommendations of the treatment team. Patient was evaluated and deemed to be absent credible lethality, and was voluntary and denied wanting any continued inpatient hospitalization, so he was discharged. Meds NPU Home Medications Medication Instructions Recorded Confirmed Last Taken Type No Known Home Medications 05/01/22 05/01/22 Unknown History Allergies Allergy/AdvReac Type Severity Reaction Status Date / Time Penicillins Allergy ALGY-Hives Verified 09/13/21 07:40 PFSH NPU PFSH: Medical History Alcohol dependence, in remission Bipolar 2 disorder Malingering Psychiatric care Social History Smoking and tobacco status: current every day smoker Mental Status Exam MSE Comments: This is an obese white male in hospital scrubs with limited grooming and adequate eye contact.? No abnormal movements except for psychomotor agitation.? Mostly cooperative with exam in mild to moderate distress.? Speech was increased rate and normal volume.? Mood described as irritable, affect congruent.? Thought process mostly organized.? Thought content: Patient endorsed suicidal ideations and endorsed aggressive ideation towards others, there were no delusions reported or noted, he endorsed auditory but denied visual hallucinations.? Attention and concentration were limited and memory was mostly reliable but none were formally tested.? He is alert and oriented x3.? Insight and judgment are impaired, impulse control is impaired. Vitals/I&O/Wt Last Vital Signs Temp 97.5 F L 05/02/22 06:00 Pulse 73 05/02/22 06:00 Resp 18 05/02/22 06:00 BP 110/73 05/02/22 06:00 Pulse Ox 94 05/02/22 06:00 O2 Del Method 05/02/22 06:00 Weight last 48 hrs Weight 108.862 kg Data NPU 05/01/22 19:37 05/01/22 19:37 A&P Assessment and plan (1) Depression with suicidal ideation: (2) Suicide attempt: (3) Alcohol dependence, in remission: (4) Drug-induced psychotic disorder: (5) Antisocial personality disorder: (6) Depressed bipolar I disorder: Plan This is a 51-year-old white male with a long history of multiple inpatient hospitalizations often with concerns for malingering who presents today reporting that he has been off of his medication but has been working in [place] before he came back to [place] for a break. 1.? Restart Seroquel and trazodone. 2.? Continue every 15 minute checks for safety. 3.? Encourage individual, group and milieu therapies. 4.? Encourage sober living treatment after discharge at the highest level of care to which he is willing to commit.? Involuntary Hold Information 96 Hour Hold: 96 Hour Involuntary Admission: Yes 96 Hour Hold Ending Date: 05/04/22 96 Hour Hold Ending Time: 19:21 Attestations NPU Medical Necessity Statement*: Inpatient hospitalization is medically necessary and the clinically appropriate intervention at this time.? We will monitor medications and make changes as indicated.? Patient will be in the hospital for over two midnights.? Likely length of stay 3-5 days. Coding Level of Care Code Acute Code for g Fwd Diagnoses Depression with suicidal ideation F32.A; R45.851 Suicide attempt T14.91XA Alcohol dependence, in remission F10.21 Drug-induced psychotic disorder F19.959 Antisocial personality disorder F60.2 Depressed bipolar I disorder F31.9
[2022-05-02] MEDS: nicotine 2 mg Gum BUCCAL (13:42)
[2022-05-02] MEDS: OLANZapine 5 mg ODT PO (13:42)
[2022-05-02] MEDS: acetaminophen 325 mg Tablet 650 MG PO (13:44)
[2022-05-02 14:00] VITALS: BP 99/65; PULSE 76; RESP 18; TEMP 36.4; O2SAT 94
[2022-05-02 22:00] VITALS: BP 100/63; PULSE 69; RESP 16; TEMP 36.6; O2SAT 97
[2022-05-03] MEDS: acetaminophen 325 mg Tablet 650 MG PO ×2 (04:26→20:19)
[2022-05-03] MEDS: hyDROXYzine 25 mg Capsule 50 MG PO (04:26)
[2022-05-03 06:00] VITALS: RESP 15
[2022-05-03] MEDS: nicotine 2 mg Gum BUCCAL (12:18)
[2022-05-03] MEDS: OLANZapine 5 mg ODT PO (12:20)
[2022-05-03 14:00] VITALS: BP 134/74; PULSE 86; RESP 18; TEMP 36.6; O2SAT 95
--- NOTE | 2022-05-03 14:22 | P.NPUPN_ITS ---
Subjective NPU Subjective: Patient presented today reporting that he has been having a rough day. We agreed to restart his Seroquel and trazodone which will begin tonight but he has had a couple as needed medications due to his irritability and anxiety. He was able to identify however that this is a process and reported looking forward to the medication starting tonight. He denied any major concerns and was able to contract for safety inside the hospital. We continued to discuss the importance of him continuing medication so that these cycles do not continue. Mental Status Exam MSE Comments: This is an obese white male in hospital scrubs with limited grooming and adequate eye contact.? No abnormal movements except for psychomotor agitation.? Mostly cooperative with exam in mild to moderate distress.? Speech was increased rate and normal volume.? Mood described as irritable, affect congruent.? Thought process mostly organized.? Thought content: Patient endorsed suicidal ideations and endorsed aggressive ideation towards others, there were no delusions reported or noted, he endorsed auditory but denied visual hallucinations.? Attention and concentration were limited and memory was mostly reliable but none were formally tested.? He is alert and oriented x3.? Insight and judgment are impaired, impulse control is impaired. Vitals/I&O/Wt Last Vital Signs Temp 97.9 F 05/02/22 22:00 Pulse 69 05/02/22 22:00 Resp 15 05/03/22 06:00 BP 100/63 05/02/22 22:00 Pulse Ox 97 05/02/22 22:00 O2 Del Method 05/02/22 22:00 Weight last 48 hrs Weight 108.862 kg Data NPU 05/01/22 19:37 05/01/22 19:37 A&P Assessment and plan (1) Depression with suicidal ideation: (2) Suicide attempt: (3) Alcohol dependence, in remission: (4) Drug-induced psychotic disorder: (5) Antisocial personality disorder: (6) Depressed bipolar I disorder: Plan This is a 51-year-old white male with a long history of multiple inpatient hospitalizations often with concerns for malingering who presents today reporting that he has been off of his medication but has been working in [facility] before he came back to [place] for a break. 1.? Restart Seroquel 100 mg and trazodone 100 mg both p.o nightly. 2.? Continue every 15 minute checks for safety. 3.? Encourage individual, group and milieu therapies. 4.? Encourage sober living treatment after discharge at the highest level of care to which he is willing to commit.? Involuntary Hold Information 96 Hour Hold: 96 Hour Involuntary Admission: Yes 96 Hour Hold Ending Date: 05/04/22 96 Hour Hold Ending Time: 19:21 Attestations NPU Medical Necessity Statement*: Inpatient hospitalization is medically necessary and the clinically appropriate intervention at this time.? We will monitor medications and make changes as indicated.? Likely length of stay 3-5 days. Coding Level of Care Code Acute Code for Chg Fwd Diagnoses Depression with suicidal ideation F32.A; R45.851 Suicide attempt T14.91XA Alcohol dependence, in remission F10.21 Drug-induced psychotic disorder F19.959 Antisocial personality disorder F60.2 Depressed bipolar I disorder F31.9
[2022-05-03] MEDS: haloperidol 5 mg Tablet PO (15:33)
[2022-05-03] MEDS: quetiapine 100 mg Tablet PO (20:19)
[2022-05-03] MEDS: trazodone 100 mg Tablet PO (20:19)
[2022-05-03 21:07] VITALS: BP 122/86; PULSE 76; RESP 18; TEMP 36.6; O2SAT 97
[2022-05-04] MEDS: ibuprofen 600 mg Tablet PO ×2 (03:09→21:32)
[2022-05-04 06:00] VITALS: BP 117/79; PULSE 78; RESP 18; TEMP 36.6; O2SAT 97
--- NOTE | 2022-05-04 08:59 | P.NPUPN_ITS ---
Subjective NPU Subjective: Patient presented today reporting that he is feeling a bit better. He continues to have as needed medications during the day and we discussed the possibility of adding some daytime Seroquel in a standardized fashion to avoid needing other as needed's. We discussed the benefits and alternatives of adding Seroquel during the day and he understood and agreed to proceed as is documented in this note. Mental Status Exam MSE Comments: This is an obese white male in hospital scrubs with limited groo radha and adequate eye contact.? No abnormal movements except for psychomotor agitation.? Mostly cooperative with exam in mild to moderate distress.? Speech was increased rate and normal volume.? Mood described as irritable, affect congruent.? Thought process mostly organized.? Thought content: Patient endorsed suicidal ideations and endorsed aggressive ideation towards others, there were no delusions reported or noted, he endorsed auditory but denied visual hallucinations.? Attention and concentration were limited and memory was mostly reliable but none were formally tested.? He is alert and oriented x3.? Insight and judgment are impaired, impulse control is impaired. Vitals/I&O/Wt Last Vital Signs Temp 97.9 F 05/04/22 06:00 Pulse 78 05/04/22 06:00 Resp 18 05/04/22 06:00 BP 117/79 05/04/22 06:00 Pulse Ox 97 05/04/22 06:00 O2 Del Method 05/04/22 06:00 Data NPU 05/01/22 19:37 05/01/22 19:37 A&P Assessment and plan (1) Depression with suicidal ideation: (2) Suicide attempt: (3) Alcohol dependence, in remission: (4) Drug-induced psychotic disorder: (5) Antisocial personality disorder: (6) Depressed bipolar I disorder: Plan This is a 51-year-old white male with a long history of multiple inpatient hos pitalizations often with concerns for malingering who presents today reporting that he has been off of his medication but has been working in [place] before he came back to [place] for a break. 1.? Restarted Seroquel 100 mg and trazodone 100 mg both p.o nightly. Add 25 mg Seroquel p.o. twice daily. 2.? Continue every 15 minute checks for safety. 3.? Encourage individual, group and milieu therapies. 4.? Encourage sober living treatment after discharge at the highest level of care to which he is willing to commit.? Involuntary Hold Information 96 Hour Hold: 96 Hour Involuntary Admission: Yes 96 Hour Hold Ending Date: 05/04/22 96 Hour Hold Ending Time: 19:21 Attestations NPU Medical Necessity Statement*: Inpatient hospitalization is medically necessary and the clinically appropriate intervention at this time.? We will monitor medications and make changes as indicated.? Likely length of stay 2-4 days. Coding Level of Care Code Acute Code for Chg Fwd Diagnoses Depression with suicidal ideation F32.A; R45.851 Suicide attempt T14.91XA Alcohol dependence, in remission F10.21 Drug-induced psychotic disorder F19.959 Antisocial personality disorder F60.2 Depressed bipolar I disorder F31.9
[2022-05-04] MEDS: OLANZapine 5 mg ODT PO (12:28)
[2022-05-04 14:00] VITALS: BP 104/57; PULSE 72; RESP 18; TEMP 36.6; O2SAT 97
[2022-05-04] MEDS: nicotine 2 mg Gum BUCCAL (16:57)
[2022-05-04 20:40] VITALS: BP 100/75; PULSE 74; RESP 18; TEMP 36.8; O2SAT 97
[2022-05-04] MEDS: quetiapine 100 mg Tablet PO (21:32)
[2022-05-04] MEDS: trazodone 100 mg Tablet PO (21:32)
[2022-05-05 06:00] VITALS: BP 123/72; PULSE 63; RESP 18; TEMP 36.6; O2SAT 96
[2022-05-05] MEDS: nicotine 2 mg Gum BUCCAL (08:17)
[2022-05-05] MEDS: ibuprofen 600 mg Tablet PO (08:17)
[2022-05-05] MEDS: hyDROXYzine 25 mg Capsule 50 MG PO (08:17)
[2022-05-05] MEDS: quetiapine 25 mg Tablet PO ×2 (08:19→18:12)
[2022-05-05] MEDS: nicotine 21 mg Patch 1 PATCH TRANSDERMA (11:15)
--- NOTE | 2022-05-05 13:40 | P.NPUPN_ITS ---
Subjective NPU Subjective: Patient attended today reporting that he has been a little better. He said the daytime Seroquel is a little helpful but still having irritability we agreed that we would increase the dose and see how that goes. He was pleasant and appreciative of our assisting him. He reports that he is eating a little better and sleeping better too. Mental Status Exam MSE Comments: This is an obese white male in hospital scrubs with limited grooming and adequate eye contact.? No abnormal movements except for mild psychomotor agitation.? Mostly cooperative with exam in mild distress.? Speech was more normal rate and normal volume.? Mood described as irritable but improving, affect congruent.? Thought process mostly organized.? Thought content: Patient endorsed suicidal ideations and endorsed aggressive ideation towards others, there were no delusions reported or noted, he endorsed auditory but denied visual hallucinations.? Attention and concentration were limited and memory was mostly reliable but none were formally tested.? He is alert and oriented x3.? Insight and judgment are impaired, impulse control is impaired. Vitals/I&O/Wt Last Vital Signs Temp 97.9 F 05/05/22 06:00 Pulse 63 05/05/22 06:00 Resp 18 05/05/22 06:00 BP 123/72 05/05/22 06:00 Pulse Ox 96 05/05/22 06:00 O2 Del Method 05/04/22 14:00 Weight last 48 hrs Weight 132.358 kg Data NPU 05/01/22 19:37 05/01/22 19:37 A&P Assessment and plan (1) Depression with suicidal ideation: (2) Suicide attempt: (3) Alcohol dependence, in remission: (4) Drug-induced psychotic disorder: (5) Antisocial personality disorder: (6) Depressed bipolar I disorder: Plan This is a 51-year-old white male with a long history of multiple inpatient hospitalizations often with concerns for malingering who presents today reporting that he has been off of his medication but has been working in [place] before he came back to [place] for a break. 1.? Restarted Seroquel 100 mg and trazodone 100 mg both p.o nightly. Added 25 mg Seroquel p.o. twice daily. Increase that to 50 mg p.o. twice daily. 2.? Continue every 15 minute checks for safety. 3.? Encourage individual, group and milieu therapies. 4.? Encourage sober living treatment after discharge at the highest level of care to which he is willing to commit.? Involuntary Hold Information 96 Hour Hold: 96 Hour Involuntary Admission: Yes 96 Hour Hold Ending Date: 05/04/22 96 Hour Hold Ending Time: 19:21 Attestations NPU Medical Necessity Statement*: Inpatient hospitalization is medically necessary and the clinically appropriate intervention at this time.? We will monitor medications and make changes as indicated.? Likely length of stay 1-3 days. Coding Level of Care Code Acute Code for Chg Fwd Diagnoses Depression with suicidal ideation F32.A; R45.851 Suicide attempt T14.91XA Alcohol dependence, in remission F10.21 Drug-induced psychotic disorder F19.959 Antisocial personality disorder F60.2 Depressed bipolar I disorder F31.9
[2022-05-05 14:00] VITALS: BP 121/70; PULSE 102; RESP 20; TEMP 36.3; O2SAT 96
[2022-05-05] MEDS: OLANZapine 5 mg ODT PO (15:14)
--- NOTE | 2022-05-05 15:14 | PC.NURSE ---
pt came to nurses desk requesting something for anger. administered zyprexia po
[2022-05-05 19:59] VITALS: BP 124/81; PULSE 93; RESP 18; TEMP 36.6; O2SAT 96
[2022-05-05] MEDS: quetiapine 100 mg Tablet PO (20:04)
[2022-05-05] MEDS: trazodone 100 mg Tablet PO (20:04)
[2022-05-06 06:00] VITALS: BP 135/87; PULSE 83; RESP 16; TEMP 36.7; O2SAT 97
[2022-05-06] MEDS: nicotine 2 mg Gum BUCCAL ×5 (06:43→17:03)
[2022-05-06] MEDS: quetiapine 25 mg Tablet 50 MG PO ×2 (08:50→18:31)
[2022-05-06] MEDS: OLANZapine 5 mg ODT PO ×2 (08:52→16:43)
[2022-05-06 14:00] VITALS: BP 123/84; PULSE 92; RESP 18; TEMP 36.6; O2SAT 93
--- NOTE | 2022-05-06 16:33 | P.NPUPN_ITS ---
Subjective NPU Subjective: Patient presented today reporting that he feels like the medication changes have been effective. He had a normal smile during the conversation which was a significant improvement. We discussed the importance of him avoiding even the alcohol consumption with his BAL being 67 on admission. We also noted his absence of any other positive findings in his UDS. Discussed consideration discharge in the next 48 hours. Mental Status Exam MSE Comments: This is an obese white male in hospital scrubs with improving grooming and adequate eye contact.? No abnormal movements except for resolving psychomotor agitation.? Mostly cooperative with exam in no acute distress.? Speech was more normal rate and normal volume.? Mood described as better, affect congruent.? Thought process mostly organized.? Thought content: Patient denied suicidal ideations or homicidal ideation/aggressive ideation towards others, there were no delusions reported or noted, he endorsed resolving auditory but denied visual hallucinations.? Attention and concentration were intact and memory was mostly reliable but none were formally tested.? He is alert and oriented x3.? Insight and judgment are limited but improving, impulse control is improving. Vitals/I&O/Wt Last Vital Signs Temp 98.0 F 05/06/22 06:00 Pulse 83 05/06/22 06:00 Resp 16 05/06/22 06:00 BP 135/87 05/06/22 06:00 Pulse Ox 97 05/06/22 06:00 O2 Del Method 05/04/22 14:00 Weight last 48 hrs Weight 132.358 kg Data NPU 05/01/22 19:37 05/01/22 19:37 A&P Assessment and plan (1) Depression with suicidal ideation: (2) Suicide attempt: (3) Alcohol dependence, in remission: (4) Drug-induced psychotic disorder: (5) Antisocial personality disorder: (6) Depressed bipolar I disorder: Plan This is a 51-year-old white male with a long history of multiple inpatient hospitalizations often with concerns for malingering who presents today reporting that he has been off of his medication but has been working in [place] before he came back to [place] for a break. 1.? Restarted Seroquel 100 mg and trazodone 100 mg both p.o nightly. Added 25 mg Seroquel p.o. twice daily. Increase that to 50 mg p.o. twice daily. 2.? Continue every 15 minute checks for safety. 3.? Encourage individual, group and milieu therapies. 4.? Encourage sober living treatment after discharge at the highest level of car e to which he is willing to commit.? Involuntary Hold Information 96 Hour Hold: 96 Hour Involuntary Admission: Yes 96 Hour Hold Ending Date: 05/04/22 96 Hour Hold Ending Time: 19:21 Attestations NPU Medical Necessity Statement*: Inpatient hospitalization is medically necessary and the clinically appropriate intervention at this time.? We will monitor med ications and make changes as indicated.? Likely length of stay 1-2 days. Coding Level of Care Code Acute Code for Chg Fwd Diagnoses Depression with suicidal ideation F32.A; R45.851 Suicide attempt T14.91XA Alcohol dependence, in remission F10.21 Drug-induced psychotic disorder F19.959 Antisocial personality disorder F60.2 Depressed bipolar I disorder F31.9
[2022-05-06 20:11] VITALS: BP 118/83; PULSE 106; RESP 20; TEMP 36.4; O2SAT 95
[2022-05-06] MEDS: quetiapine 100 mg Tablet PO (20:30)
[2022-05-06] MEDS: trazodone 100 mg Tablet PO (20:30)
[2022-05-07 06:00] VITALS: BP 114/76; PULSE 74; RESP 16; TEMP 36.5; O2SAT 94
[2022-05-07] MEDS: nicotine 2 mg Gum BUCCAL ×3 (06:14→11:52)
[2022-05-07] MEDS: quetiapine 25 mg Tablet 50 MG PO ×2 (09:06→17:26)
[2022-05-07] MEDS: OLANZapine 5 mg ODT PO (11:52)
[2022-05-07 14:00] VITALS: BP 131/71; PULSE 87; RESP 20; TEMP 36.5; O2SAT 97
[2022-05-07] MEDS: nicotine 4 mg lozenge MUCOUS MEM ×2 (15:44→18:11)
--- NOTE | 2022-05-07 18:54 | P.NPUPN_ITS ---
Subjective NPU Subjective: Patient presents today reporting that he feels better. He discussed his follow-up plan with the treatment team and appears to be interested in returning to [place]. That is where he tends to have his greatest success. He agreed to sign into the hospital and discharge tomorrow morning. Mental Status Exam MSE Comments: This is an obese white male in hospital scrubs with improving grooming and adequate eye contact.? No abnormal movements except for resolving psychomotor agitation.? Mostly cooperative with exam in no acute distress.? Speech was more normal rate and normal volume.? Mood described as better, affect congruent.? Thought process mostly organized.? Thought content: Patient denied suicidal ideations or homicidal ideation/aggressive ideation towards others, there were no delusions reported or noted, he endorsed resolving auditory but denied visual hallucinations.? Attention and concentration were intact and memory was mostly reliable but none were formally tested.? He is alert and oriented x3.? Insight and judgment are improving, impulse control is improving. Vitals/I&O/Wt Last Vital Signs Temp 97.9 F 05/07/22 20:22 Pulse 109 H 05/07/22 20:22 Resp 16 05/07/22 20:22 BP 117/77 05/07/22 20:22 Pulse Ox 97 05/07/22 20:22 O2 Del Method 05/07/22 20:22 Data NPU 05/01/22 19:37 05/01/22 19:37 A&P Assessment and plan (1) Depression with suicidal ideation: (2) Suicide attempt: (3) Alcohol dependence, in remission: (4) Drug-induced psychotic disorder: (5) Antisocial personality disorder: (6) Depressed bipolar I disorder: Plan This is a 51-year-old white male with a long history of multiple inpatient hospitalizations often with concerns for malingering who presents today reporting that he has been off of his medication but has been working in [place] before he came back to [place] for a break. 1.? Restarted Seroquel 100 mg and trazodone 100 mg both p.o nightly. Added 25 mg Seroquel p.o. twice daily. Increase that to 50 mg p.o. twice daily. 2.? Continue every 15 minute checks for safety. 3.? Encourage individual, group and milieu therapies. 4.? Encourage sober living treatment after discharge at the highest level of care to which he is willing to commit.? Involuntary Hold Information 96 Hour Hold: 96 Hour Involuntary Admission: Yes 96 Hour Hold Ending Date: 05/04/22 96 Hour Hold Ending Time: 19:21 Attestations NPU Medical Necessity Statement*: Inpatient hospitalization is medically necessary and the clinically appropriate intervention at this time.? We will monitor medications and make changes as indicated.? Plan for discharge in the morning. Coding Level of Care Code Acute Code for g Fwd Diagnoses Depression with suicidal ideation F32.A; R45.851 Suicide attempt T14.91XA Alcohol dependence, in remission F10.21 Drug-induced psychotic disorder F19.959 Antisocial personality disorder F60.2 Depressed bipolar I disorder F31.9
[2022-05-07] MEDS: quetiapine 100 mg Tablet PO (20:07)
[2022-05-07] MEDS: trazodone 100 mg Tablet PO (20:07)
[2022-05-07 20:22] VITALS: BP 117/77; PULSE 109; RESP 16; TEMP 36.6; O2SAT 97
--- NOTE | 2022-05-08 08:25 | PC.NURSE ---
PT DENIES SI/HI AND AVH AT THIS TIME. STATES HE IS DISCHARGING TODAY AND GOING BACK TO [facility]. PT DENIES PAIN. PT REPORTS BM ON 05/08/22. VOICES NO COMPLAINTS AT THIS TIME.
--- NOTE | 2022-05-08 08:29 | W.PM.NPUDCS ---
Diagnoses at Discharge Discharge Diagnosis (1) Depression with suicidal ideation: Status: Resolved (2) Suicide attempt: Status: Acute (3) Alcohol dependence, in remission: Status: Acute (4) Drug-induced psychotic disorder: Status: Inactive (5) Antisocial personality disorder: Status: Chronic (6) Depressed bipolar I disorder: Status: Resolved Permanent problem details: Patient does not name and get his prescriptions filled when discharged. I am discontinuing all his meds and referring him to outpatient follow-up. Reason for Visit Reason for Visit: SI Brief History: History of Present Illness Emil Castro is a 51 year old male who presented to the emergency department with the following report: Chief Complaint: Psychiatric Symptoms Stated Complaint: SI Time Seen by Provider: 05/01/22 19:21 Source: patient Mode of arrival: ambulatory Limitations: no limitations History of Present Illness:?? 51-year-old male states he has a history of depression along with bipolar he had a suicide attempt impassable he states over the last 5 to 6 days he been having increased irritability along with suicidal thoughts he states he had thoughts of hanging himself from a tree.? He states that he realized that he needed to get help or reason to harm himself he denies any worsening proving factors he is currently not on any meds. Associated symptoms: Reports depression and suicidal ideation He was admitted to the neuropsychiatric unit for definitive treatment of those issues.? He presents today reporting that he had been spending most of his time after his last discharge in [place].? He reports that he has been working and doing fairly well.? He reports initially he was taking his medication but at some point he stopped taking it and he could not give any reasonable explanation for why he did that or why he has a habit of doing that.? He reports that he came back to [place] for some time off and to do some camping.? He reports that he started having great irritability with people around him started having some really negative thoughts about reacting to his irritability.? He thought then that it was best to come to the hospital before he did something that he regretted.? We discussed the risk benefits and alternatives of resuming the medications he had previously done well on and he understood and agreed to proceed as is documented in this note.? An excerpt of his last discharge summary is included below for context as he was not interested in details from a history standpoint. Per his 08/27/2021 [facility] inpatient psychiatric discharge summary: Discharge Diagnosis (1) Depression with suicidal ideation: ? ? ? Status: Resolved (2) Suicide attempt: ? ? ? Status: Acute (3) Alcohol dependence, in remission: ? ? ? Status: Acute (4) Drug-induced psychotic disorder: ? ? ? Status: Acute (5) Antisocial personality disorder: ? ? ? Status: Chronic (6) Depressed bipolar I disorder: ? ? ? Status: Resolved ? ? ? Permanent problem details: Patient does not name and get his prescriptions filled when discharged.? I am discontinuing all his meds and referring him to outpatient follow-up. Reason for Visit Reason for Visit:?? SI? Brief History: History of Present Illness Emil Castro is a 51 year old male who presented to the emergency department the following report: Chief complaint: Psychiatric Symptoms Stated complaint: SI Time Seen by Provider: 08/23/21 19:44 History of Present Illness:? HPI: [51]yo patient w/ hx of depression presenting for suicidal ideation with plan.? Patient plans to hang himself and decided against the last minute and came in to the ED. On arrival, the patient is AAOx3 and cooperative with my evaluation. No focal complaints of chest pain, shortness of breath, palpitations, N/V, focal GI/ complaints. Currently denies HI. No complaints of hallucinations. Onset: acute Duration: ongoing Location: home Severity: severe Associated symptoms: Deny chest pain, dyspnea, nausea, rash, palpitations or vomiting He was admitted to the neuropsychiatric unit for definitive treatment of those issues.? Patient is well-known to the unit from multiple past inpatient stays the last of which was in June.? He had previously been here much more often but had been having a modicum of success followed by some recent challenges again.? He reports that after his last stay he had gone to [place] and was doing fairly well and told someone on convoluted story about how he was coming back here to get his mail arranged and that he decided once he was here that he was going to go ahead and say and he went to [facility] and they were lining up a place for him to stay in the next 2 or 3 days.? But then frustrations and bad choices get the best of him which led him to presenting to the hospital yesterday.? He reports another problem that led to him coming his way was that he has he will get his medication for about the last month or so he would not and could not explain whether this was related to him not following through on something to get refills or some other concern.? Review of the chart suggested maybe he was given refills in the left in beginning of June.? Unclear why that occurred.? He was indicated to moving forward, getting his own place to [place] [facility] getting back on medication and trying to remain in the right direction.? Documentation shows that he has been doing better when he comes to his addictive behavior however he reports sobriety extending back more than 6 months and I am unconvinced that that is accurate though.? We discussed the risk benefits alternatives of getting his medications restarted and trying to assist him in stability on that front and he understood agreed proceed as is documented in this note.? An excerpt of his June stay is included below for context. Per his 06/13/2021 [facility] inpatient psychiatric evaluation: History of Present Illness Emil Castro is a 50 year old male who presented to the emergency department the following report: Chief complaint: Psychiatric Symptoms Stated complaint: SI Time Seen by Provider: 06/12/21 21:38 History of Present Illness:? HPI: [50]yo patient w/ hx of depression BIBA for suicidal ideation with plan. Patient plans to cut his wrist with a knife. for On arrival, the patient is AAOx3 and cooperative with my evaluation. No focal complaints of chest pain, shortness of breath, palpitations, N/V, focal GI/ complaints. Currently denies HI. No complaints of hallucinations. Onset: acute Duration: ongoing Location: home Severity: severe Associated symptoms: Deny chest pain, dyspnea, nausea, rash, palpitations or vomiting. He was admitted to the Neuropsych Unit for definitive treatment of those issues.? We discussed the fact that he has recently been coming off and like he had before and our hope is that he moves forward in his functioning.? He reports that he did go to [place] and he does have a job now.? He reports that when he was coming home with family things got out of sorts and he needed to get away from his discussed avoiding developing the pattern he had before of coming to the hospital for seemingly anything and every time he felt some resistance in his life.? Otherwise he reports that he did relapse on alcohol as his family was drinking but he reports that this is not a pattern he plans to continue.? He reports that he is happy that he got the job that he was interested and is looking forward to going back to [place] very soon to continue victory mission with that.? We did call vaccination and he said he would be able to return there.? His blood alcohol was 80 on admission.? Otherwise he denies any changes and we discussed getting him connected with [facility] given this plan to be in [place].? An excerpt of his last hospitalization is included below given the no substantive changes. Per his 06/02/2021 [facility] inpatient psychiatric evaluation: History of Present Illness Emil Castro is a 50 year old male who presented to the emergency department with the following report: Chief Complaint: Psychiatric Symptoms Stated Complaint: SI Time Seen by Provider: 06/01/21 21:19 ? History of Present Illness: ? 50-year-old male with a history of suicidality.? He also has a history of drug-induced psychosis.? He has a recent admission to the neuropsychiatric unit at this facility for suicidality.? He states he is not taking any medications currently.? He does deny use of alcohol or any other substances at this time.? He states despite this, he continues to have suicidal thoughts.? His plan is to use a rope, or overdose on medication.? He denies auditory or visual hallucinations at this time.? He presents of his own accord, willing to be admitted MD complaint: suicidal ideation Onset (ago): day(s) Duration: constant History of same: Yes Relieving factors: none Exacerbating factors: none Associated psychiatric symptoms: depression and suicidal ideation Associated symptoms: Reports suicidal ideation; Deny auditory hallucinations, visual hallucinations, delusions or homicidal ideation Treatments prior to arrival: none If self harm: admits thoughts of self harm and has plan He was admitted to the neuropsychiatric unit for definitive treatment of those issues.? He presents today continuing on the recent theme of sobriety and not having anything in his system when he comes to the hospital which is quite divergence from previous hospitalizations which have been many.? He reports that he has not necessarily been at the [facility] and is unclear about his stability in the [facility] program.? He reports that he had not been taking his medication but he did restart the medication here.? We once again reviewed with him as we did in his last hospitalization that we will likely take something more than Seroquel to break the cycle and he reportedly would consider it.? He denies any additional changes since his last hospitalization and we discussed having the [facility] come by on Friday.? We discussed the risk-benefit alternatives of initiating an additional antipsychotic and he understood and agreed proceed as is documented in this note, specifically reporting that he will think about it. Per his 05/14/2021 [facility] inpatient psychiatric evaluation: History of Present Illness Emil Castro is a 50 year old male who presented to the emergency department the following report: Chief Complaint: Psychiatric Symptoms Stated Complaint: SI Time Seen by Provider: 05/13/21 15:04 Source: patient Mode of arrival: ambulatory Limitations: no limitations? ? History of Present Illness:? ? 50-year-old male who has a history of bipolar disorder along with suicidality in the past.? He states he has been having increasing depression and hallucinations especially auditory hallucinations the last 2 to 3 days.? He states he has not been taking his medicine he has been having suicidal thoughts.? He wants to get out.? He denies any worsening improving factors.? Denies any attempts.Associated symptoms: Reports auditory hallucinations, depression and suicidal ideation He was admitted to the neuropsychiatric unit for definitive treatment of those issues.? Patient presents today well known to this show card writer through numerous past psychiatric hospitalizations.? He was last discharged on March 11, 2021 he was started in the [facility] program recently.? He had regular [facility] follow-up.? He had a psychiatric evaluation on 05/07/2021 and then was engaged by [facility] and reports that he has been sober for about 60 days, he recently lost his brother about 4 months ago, he reports he moved closer to this region from [place] which he reports was really bad.? He reports that he is now the [facility] and that has been better but in the last few days he reports that he has struggled with suicidal thoughts.? He reports that he has been taking his medication which was only Seroquel 300 mg p.o. nightly he reports that for what ever reason he has been feeling more suicidal and less stable over the past few days.? We discussed the risk-benefit alternatives of continuing his current medication and he understood agreed proceed as is documented in this note.? We also discussed the prospect of getting started on antidepressant but though he endorsed feeling suicidal he denied being depressed.? The only substantive changes that he reports since his last hospitalization is that he no longer lives in [place] and that he reports he been sober for 2 months and his UDS was negative for substances of abuse.? An excerpt of his 2020 [facility] inpatient psychiatric evaluation is included below for context. Per his 03/08/2021 [facility] inpatient psychiatric evaluation: History of Present Illness Emil Castro is a 50 year old male who presented to the emergency department with the following report: Chief Complaint: Psychiatric Symptoms Stated Complaint: si Time Seen by Provider: 03/07/21 19:35 Source: patient Mode of arrival: ambulatory Limitations: no limitations History of Present Illness: HPI Narrative: 50-year-old male who is here for suicidal ideation. He states he been having suicidal thoughts over the last 10 days. He states that increased agitation has been hearing voices states that he does want to kill himself and has a plan of jumping in front of a semitruck. He also admits to chronic meth use with meth use recently as well. Denies any worst improving factors. Associated symptoms: Reports auditory hallucinations, depression and suicidal ideation. He was made to the neuropsychiatric unit for the treatment of those issues.? Is well-known to this unit secondary to multiple things hospitalizations.? He presents today much like his previous hospitalizations is a fairly resistant historian.? Today it seems more likely that is secondary to withdrawal from methamphetamine causing him to have some confusion, increased somnolence and some irritability.? His answers to questions are generalities not specifics but at this point it seems more a product of his intoxication/withdrawal that it does volitional behavior.? He gave some report of being in [place] since his discharge in April of this year then returning here recently but he had no reasons for why he went to [place], what he was doing there, why he returned here, what his recovery has been like.? He can give no helpful information about when he last took medication, what he was taking for sure, but he reports taking Seroquel and Klonopin.? Of course we discussed Klonopin not being a great idea overall for someone with such significant addiction.? He did not give any real information about where he has been living, how he has been providing for himself, any other drug and alcohol or mental health services being utilized the last 10 months.? We agreed we would investigate some of this information and hopefully determine what he has been doing and how we can help.? An excerpt from his 04/30/2020 discharge summary is included below for context. Hospital Course Hospital Course He quickly acclimated to the individual, group and milieu therapies provided.? It appeared that may be he was just needing a place to stay tonight possibly as he was very focused towards being discharged after being here a couple of days.? We did get his medications restarted and he did have modest improvement.? He worked with the treatment team but reported he had his own plan in place that he wanted to follow through on.? He was able to contract for safety outside of the hospital prior to discharge.? During the hospitalization, patient had routine laboratory studies which were within normal limits except for few outliers.? Additionally there was a general medical evaluation which was also within normal limits and revealed no new acute processes. Discharge Summary: At the time of discharge, lethality was denied and psychosis was resolving.? Mood and anxiety were well managed.? Patient endorsed a plan to avoid all drugs of abuse and follow-up with the aftercare recommendations of the treatment team.? Patient was evaluated and deemed to be absent credible lethality, and was voluntary and denied wanting any continued inpatient hospitalization, so he was discharged. Hospital Course Hospital Course He slowly acclimated to the individual, group and milieu therapies provided.? He presented reporting irritability being off of medication. Seroquel was started at bedtime and 2 daytime doses were added. He was titrated up to 50 mg twice a day and 100 milligrams at night. He continues to have challenging living successes at home is becoming factor. He dorsoplantar this maneuver he has had some success. With his medications restarted and he did have significant improvement.? He was able to contract for safety outside of the hospital prior to discharge.? During the hospitalization, patient had routine laboratory studies which were within normal limits except for few outliers.? Additionally there was a general medical evaluation which was also within normal limits and revealed no new acute processes. Discharge Summary: At the time of discharge, lethality was denied and psychosis was resolving.? Mood and anxiety were well managed.? Patient endorsed a plan to avoid all drugs of abuse and follow-up with the aftercare recommendations of the treatment team.? Patient was evaluated and deemed to be absent credible lethality, and was voluntary and denied wanting any continued inpatient hospitalization, so he was discharged. Involuntary Hold Information 96 Hour Hold: 96 Hour Involuntary Admission: Yes 96 Hour Hold Ending Date: 05/04/22 96 Hour Hold Ending Time: 19:21 Mental Status Exam MSE Comments: This is an obese white male in hospital scrubs with improving grooming and adequate eye contact.? No abnormal movements except for resolving psychomotor agitation.? Mostly cooperative with exam in no acute distress.? Speech was more normal rate and normal volume.? Mood described as better, affect congruent.? Thought process mostly organized.? Thought content: Patient denied suicidal ideations or homicidal ideation/aggressive ideation towards others, there were no delusions reported or noted, he endorsed resolving auditory but denied visual hallucinations.? Attention and concentration were intact and memory was mostly reliable but none were formally tested.? He is alert and oriented x3.? Insight and judgment are improving, impulse control is improving. Discharge Data Studies Completed and Pending: Laboratory Results WBC 10.1 10^3/uL (4.0 -10.0) H 05/01/22 19:37 RBC 5.11 10^6/uL (4.1 -5.3) 05/01/22 19:37 Hgb 16.7 g/dL (11.7-1 6.6) H 05/01/22 19:37 Hct 48.0 % (42.0-52.0 ) 05/01/22 19:37 MCV 93.9 fl (80-94) 05/01/22 19:37 MCH 32.7 pg (28.0-34. 0) 05/01/22 19:37 MCHC 34.8 g/dL (30.0-3 6.0) 05/01/22 19:37 RDW 12.7 % (12.1-15.1 ) 05/01/22 19:37 Plt Count 223 10^3/cmm (130 -400) 05/01/22 19:37 MPV 9.9 fL (7.4-10.4) 05/01/22 19:37 Neut % (Auto) 54.1 % 05/01/22 19:37 Lymph % (Auto) 30.4 % 05/01/22 19:37 [place] % (Auto) 11.5 % 05/01/22 19:37 Eos % (Auto) 2.6 % 05/01/22 19:37 Baso % (Auto) 0.9 % 05/01/22 19:37 Neut # (Auto) 5.45 10^3/uL (1.8 -7.7) 05/01/22 19:37 Lymph # (Auto) 3.1 10^3/uL (0.8- 4.8) 05/01/22 19:37 [place] # (Auto) 1.2 10^3/uL (0.2- 0.9) H 05/01/22 19:37 Eos # (Auto) 0.3 10^3/uL (0.0- 0.8) 05/01/22 19:37 Baso # (Auto) 0.1 10^3/uL (0.0- 0.1) 05/01/22 19:37 Nucleated RBC % (a uto) 0 % 05/01/22 19:37 Nucleated RBCs # 0.0 /100WBC 05/01/22 19:37 Sodium 136 mmol/L (136-1 45) 05/01/22 19:37 Potassium 3.9 mmol/L (3.5-5 .1) 05/01/22 19:37 Chloride 98 mmol/L (98-107 ) 05/01/22 19:37 Carbon Dioxide 27 mmol/L (22-29) 05/01/22 19:37 Anion Gap 14.9 (5-19) 05/01/22 19:37 BUN 12 mg/dL (6-20) 05/01/22 19:37 Creatinine 0.8 mg/dL (0.7-1. 2) 05/01/22 19:37 GFR Calculation 101.5 mL/min (90- 130) 05/01/22 19:37 Glucose 93 mg/dL (65-115) 05/01/22 19:37 Calculated Osmolal ity 281 mOsm/kg (285- 295) L 05/01/22 19:37 Calcium 9.8 mg/dL (8.5-10 .5) 05/01/22 19:37 Total Bilirubin 0.6 mg/dL (0.15-1 .2) 05/01/22 19:37 AST 28 U/L (0-40) 05/01/22 19:37 ALT 30 U/L (0-41) 05/01/22 19:37 Alkaline Phosphata se 85 U/L (40-130) 05/01/22 19:37 Total Protein 7.7 g/dL (6.6-8.7 ) 05/01/22 19:37 Albumin 4.9 g/dL (3.5-5.2 ) 05/01/22 19:37 Globulin 2.8 g/dL (1.3-4.6 ) 05/01/22 19:37 Salicylates < 0.3 mg/dL (3-10 ) L 05/01/22 19:37 Urine Opiates Scre en Negative ng/mL (N egative) 05/01/22 19:45 Acetaminophen < 5.0 ug/mL (10-3 0) L 05/01/22 19:37 Ur Barbiturates Sc reen Negative ng/mL (N egative) 05/01/22 19:45 Ur Phencyclidine S crn Negative ng/mL (N egative) 05/01/22 19:45 Ur Amphetamines Sc reen Negative ng/mL (N egative) 05/01/22 19:45 U Benzodiazepines Scrn Negative ng/mL (N egative) 05/01/22 19:45 Urine Cocaine Scre en Negative ng/mL (N egative) 05/01/22 19:45 U Marijuana (THC) Screen Negative ng/mL (N egative) 05/01/22 19:45 Ethyl Alcohol 67 mg/dL (0-10) H 05/01/22 19:37 Vitals: Last Vital Signs Temp 97.9 F 05/07/22 20:22 Pulse 109 H 05/07/22 20:22 Resp 16 05/07/22 20:22 BP 117/77 05/07/22 20:22 Pulse Ox 97 05/07/22 20:22 O2 Del Method 05/07/22 20:22 Discharge Plan Discharge Patient Disposition: Home Condition: Stable Prescriptions: New quetiapine 25 mg Tablet 50 mg PO BID 30 Days Qty: 120 1RF trazodone 100 mg Tablet 100 mg PO BEDTIME 30 Days Qty: 30 1RF No Action Seroquel 100 mg tablet 100 mg PO BEDTIME Discharge Orders: Discharge Order (Routine); Ordered 05/08/22 Ordered By: Sam Bond Referrals: [facility] [Other] - 05/16/22 9:30 am (Intake with Serina Dawson. On the second floor. ) [facility]-Dr. Kristi Cunha [Other] - 06/26/22 4:00 pm (Appointment will be on first floor.) Discharge Diet: Regular Discharge Activity: Resume usual activity Patient Instructions: Bipolar Disorder (DC), Depression (DC), Help Prevent Suicide (DC), Suicide Prevention (DC), Depression in Older Adults (ED), Opioid Safety Discharge Attestations NPU Time Spent in Discharge Care*: less than 30 min Specific Discharge Activities: Specific discharge activities: educating patient, discussing with case management social worker/social workers/dc planners, documenting/other paperwork and evaluating patient/reviewing data Status at Discharge: Cognitive status at discharge: cognitively intact, Behavioral status at discharge: cooperative, Coding Level of Care Code Acute Chg FW DC note Diagnoses Depression with suicidal ideation F32.A; R45.851 Suicide attempt T14.91XA Alcohol dependence, in remission F10.21 Drug-induced psychotic disorder F19.959 Antisocial personality disorder F60.2 Depressed bipolar I disorder F31.9
[2022-05-08] MEDS: nicotine 4 mg lozenge MUCOUS MEM ×2 (09:17→14:00)
[2022-05-08] MEDS: quetiapine 25 mg Tablet 50 MG PO (09:17)
--- NOTE | 2022-05-08 09:34 | DCPLANNER ---
Imm was given to pt and rights explained. A copy was placed in pts file.
[2022-05-08 10:58] VITALS: BP 117/77; PULSE 80; RESP 16; TEMP 36.6; O2SAT 97
[2022-05-08] MEDS: nicotine 2 mg Gum BUCCAL (12:01)
[2022-05-08 14:00] VITALS: BP 138/87; PULSE 96; RESP 18; TEMP 36.6; O2SAT 98
--- NOTE | 2022-05-08 15:36 | PC.NURSE ---
PT DISCHARGED AT 1535 LEFT VIA [facility]. ALL DC TEACHING COMPLETED WITH MEDICATIONS REVIEWED, AND THE NEXT TIME TO TAKE. PT VERBALIZED UNDERSTANDING. PT LEFT WITH ALL BELONGINGS, PACK PACK, PHONE AND MONEY. PAPER WORK SIGNED WHEN MONEY RECEIVED. PT WAS GIVEN ALL PRESCRIBED MEDS PER MEDS TO BEDS. ALL QUESTIONS ANSWERED AND SUPPORT WAS VOICED.
== END 2022-05-08 15:35 | disposition home or self-care (01) | DRG 885 ==
LOC: ER 19:59 → NP 20:00
PROVIDERS: Admitting Provider Psychiatry & Neurology Psychiatry; Emergency Provider Emergency Medicine; Visit Provider Psychiatry & Neurology Psychiatry
DX: F31.9 Bipolar disorder, unspecified (principal); R45.851 Suicidal ideations; T43.596A Underdosing of other antipsychotics and neuroleptics, initial encounter; T43.216A Underdosing of selective serotonin and norepinephrine reuptake inhibitors, initial encounter; F60.2 Antisocial personality disorder; F10.20 Alcohol dependence, uncomplicated; Y90.3 Blood alcohol level of 60-79 mg/100 ml; Z91.128 Patient's intentional underdosing of medication regimen for other reason
CPT/HCPCS: 36415; 80053; 80306; 80307; 85025; 97150; 97165; 99238; 99285

== ENCOUNTER 2022-05-17 17:16 | Inpatient (IN) | payer MEDICARE, MEDICAID, SELFPAY ==
[2022-05-17 17:23] VITALS: PULSE 66; RESP 16; TEMP 36.6; O2SAT 97
--- NOTE | 2022-05-17 17:37 | W.ED.PSYCHS ---
HPI - Psych General: Chief Complaint: Psychiatric Symptoms Stated Complaint: KASHIF SILVEIRA Time Seen by Provider: 05/17/22 17:36 Source: patient Mode of arrival: ambulatory Limitations: no limitations History of Present Illness: Patient is a 51-year-old male who is well-known to the emergency department here yet again for complaints of suicidal ideations, homicidal ideations, auditory hallucinations, and aggression/anger outbursts. Patient has had multiple NPU admissions over the past few months. Patient states he never has followed up with [facility], [place] or a primary care provider after his discharges. Patient states he is taking his prescribed medications. He continues to drink alcohol. States he has a plan to hang himself with a rope. He states he feels homicidal towards men in general and sometimes wants to slit their throats. MD complaint: suicidal ideation and other (anger/agression, HI, auditory hallucinations) Duration: constant History of same: Yes Relieving factors: none Exacerbating factors: none Context: recent alcohol abuse Associated psychiatric symptoms: depression, suicidal ideation, homicidal ideation and auditory hallucinations Associated symptoms: Reports auditory hallucinations, depression, homicidal ideation and suicidal ideation; Deny visual hallucinations Treatments prior to arrival: none If self harm: admits thoughts of self harm and has plan Review of Systems Const: Denies: fever(s) or chills Card: Denies: chest pain, palpitations, lightheadedness or syncope Resp: Denies: dyspnea GI: Denies: abdominal pain, nausea, vomiting or diarrhea Skin/Breast: Denies: rash Neuro: Denies: headache(s) Psych: Reports: anxiety, depression, mood swings, auditory hallucinations, suicidal ideation, homicidal ideation and other; Denies: visual hallucinations [facility] ED PFSH: Medical History Alcohol dependence, in remission Bipolar 2 disorder Drug-induced psychotic disorder Malingering Psychiatric care Social History Smoking and tobacco status: current every day smoker Physical Exam Const: COMMON NORMALS: no acute distress, patient oriented x3, no limitations, alert and well nourished GENERAL APPEARANCE: cooperative Resp: COMMON NORMALS: normal respiratory effort and clear to auscultation bilaterally AUSCULTATION: clear to auscultation bilaterally Cardio: COMMON NORMALS: regular rate and regular rhythm RATE: regular rate RHYTHM: regular rhythm Neuro: COMMON NORMALS: patient oriented x3 SENSORIUM/ORIENTATION: Yes alert Psych: COMMON NORMALS: mental status grossly normal, Normal thought process present, cooperative, normal affect, speech normal and activity/motor behavior normal APPEARANCE: Yes grossly normal ATTITUDE: Yes calm ACTIVITY/MOTOR BEHAVIOR: Yes appropriate eye contact and No psychomotor agitation SPEECH: Yes normal speech MOOD & AFFECT: Yes euthymic mood THOUGHT PROCESS: Normal thought process present ATTENTION/CONCENTRATION: Yes attention grossly intact and Yes concentration grossly intact MEMORY/COGNITION: Yes memory grossly intact and Yes cognition grossly intact INSIGHT: Good insight present (Psych) JUDGEMENT: Fair judgement present (Psych) Course Consultations: Consultation #1: Dr. Bond-accepts admit Vital Signs: Vital signs: Vital Signs Temperature 97.9 F 05/17/22 17:23 Pulse Rate 66 05/17/22 17:23 Respiratory Rate 16 05/17/22 17:23 Pulse Oximetry 97 05/17/22 17:23 Oxygen Delivery Me thod 05/17/22 17:23 [facility] - Psych Medical Decision Making Patient will be admitted to NPU to Dr. Bond for suicidal ideation, homicidal ideation, auditory hallucinations. Lab Data 05/17/22 18:00 05/17/22 18:00 Laboratory Results WBC 11.7 10^3/uL (4.0-10.0) H 05/17/22 18:00 RBC 5.01 10^6/uL (4.1-5.3) 05/17/22 18:00 Hgb 16.1 g/dL (11.7-16.6) 05/17/22 18:00 Hct 46.8 % (42.0-52.0) 05/17/22 18:00 MCV 93.4 fl (80-94) 05/17/22 18:00 MCH 32.1 pg (28.0-34.0) 05/17/22 18:00 MCHC 34.4 g/dL (30.0-36.0) 05/17/22 18:00 RDW 12.8 % (12.1-15.1) 05/17/22 18:00 Plt Count 224 10^3/cmm (130-400) 05/17/22 18:00 MPV 10.0 fL (7.4-10.4) 05/17/22 18:00 Neut % (Auto) 65.4 % 05/17/22 18:00 Lymph % (Auto) 20.6 % 05/17/22 18:00 Ralls % (Auto) 9.8 % 05/17/22 18:00 Eos % (Auto) 2.7 % 05/17/22 18:00 Baso % (Auto) 0.9 % 05/17/22 18:00 Neut # (Auto) 7.64 10^3/uL (1.8-7.7) 05/17/22 18:00 Lymph # (Auto) 2.4 10^3/uL (0.8-4.8) 05/17/22 18:00 Ralls # (Auto) 1.1 10^3/uL (0.2-0.9) H 05/17/22 18:00 Eos # (Auto) 0.3 10^3/uL (0.0-0.8) 05/17/22 18:00 Baso # (Auto) 0.1 10^3/uL (0.0-0.1) 05/17/22 18:00 Nucleated RBC % (auto) 0 % 05/17/22 18:00 Nucleated RBCs # 0.0 /100WBC 05/17/22 18:00 Sodium 137 mmol/L (136-145) 05/17/22 18:00 Potassium 3.4 mmol/L (3.5-5.1) L 05/17/22 18:00 Chloride 100 mmol/L (98-107) 05/17/22 18:00 Carbon Dioxide 23 mmol/L (22-29) 05/17/22 18:00 Anion Gap 17.4 (5-19) 05/17/22 18:00 BUN 10 mg/dL (6-20) 05/17/22 18:00 Creatinine 0.8 mg/dL (0.7-1.2) 05/17/22 18:00 GFR Calculation 101.5 mL/min (90-130) 05/17/22 18:00 Glucose 100 mg/dL (65-115) 05/17/22 18:00 Calculated Osmolality 283 mOsm/kg (285-295) L 05/17/22 18:00 Calcium 9.5 mg/dL (8.5-10.5) 05/17/22 18:00 Total Bilirubin 0.4 mg/dL (0.15-1.2) 05/17/22 18:00 AST 30 U/L (0-40) 05/17/22 18:00 ALT 28 U/L (0-41) 05/17/22 18:00 Alkaline Phosphatase 82 U/L (40-130) 05/17/22 18:00 Total Protein 7.5 g/dL (6.6-8.7) 05/17/22 18:00 Albumin 4.8 g/dL (3.5-5.2) 05/17/22 18:00 Globulin 2.7 g/dL (1.3-4.6) 05/17/22 18:00 Salicylates < 0.3 mg/dL (3-10) L 05/17/22 18:00 Urine Opiates Screen Negative ng/mL (Negative) 05/17/22 17:30 Acetaminophen < 5.0 ug/mL (10-30) L 05/17/22 18:00 Ur Barbiturates Screen Negative ng/mL (Negative) 05/17/22 17:30 Ur Phencyclidine Scrn Negative ng/mL (Negative) 05/17/22 17:30 Ur Amphetamines Screen Negative ng/mL (Negative) 05/17/22 17:30 U Benzodiazepines Scrn Negative ng/mL (Negative) 05/17/22 17:30 Urine Cocaine Screen Negative ng/mL (Negative) 05/17/22 17:30 U Marijuana (THC) Screen Negative ng/mL (Negative) 05/17/22 17:30 Ethyl Alcohol 57 mg/dL (0-10) H 05/17/22 18:00 Discharge Plan Discharge Patient Disposition: Admitted As Inpatient Clinical Impression: Suicidal ideation, Homicidal ideations, Auditory hallucinations, Chronic alcohol abuse Condition: Stable Coding Level of Care Code ED Rolling Machine [employer] Automatic for Wilder Long
[2022-05-17 18:09] LABS: Basophils # 0.1 10^3/uL (0.0-0.1); Basophils % 0.9 %; Eosinophils # 0.3 10^3/uL (0.0-0.8); Eosinophils % 2.7 %; Hematocrit 46.8 % (42.0-52.0); Hemoglobin 16.1 g/dL (11.7-16.6); Lymphocytes # 2.4 10^3/uL (0.8-4.8); Lymphocytes % 20.6 %; Mean Corpuscular HGB Conc 34.4 g/dL (30.0-36.0); Mean Corpuscular Hemoglobin 32.1 pg (28.0-34.0); Mean Corpuscular Volume 93.4 fl (80-94); Monocytes # 1.1 10^3/uL (0.2-0.9); Monocytes % 9.8 %; Neutrophils # 7.64 10^3/uL (1.8-7.7); Neutrophils % 65.4 %; Nucleated Red Blood Cells % 0 %; Platelet Count 224 10^3/cmm (130-400); Red Blood Count 5.01 10^6/uL (4.1-5.3); Red Cell Distribution Width 12.8 % (12.1-15.1); White Blood Count 11.7 10^3/uL (4.0-10.0)
[2022-05-17 18:32] LABS: Alanine Aminotransferase 28 U/L (0-41); Albumin Level 4.8 g/dL (3.5-5.2); Alcohol Level 57 mg/dL (0-10); Alkaline Phosphatase 82 U/L (40-130); Anion Gap 17.4 (5-19); Aspartate Amino Transferase 30 U/L (0-40); Blood Urea Nitrogen 10 mg/dL (6-20); Calcium 9.5 mg/dL (8.5-10.5); Carbon Dioxide 23 mmol/L (22-29); Chloride 100 mmol/L (98-107); Globulin 2.7 g/dL (1.3-4.6); Glomerular Filtration Rate 101.5 mL/min (90-130); Glucose 100 mg/dL (65-115); Osmolality Calculated 283 mOsm/kg (285-295); Potassium 3.4 mmol/L (3.5-5.1); Sodium 137 mmol/L (136-145); Total Bilirubin 0.4 mg/dL (0.15-1.2); Total Protein 7.5 g/dL (6.6-8.7)
[2022-05-17 18:34] LABS: Acetaminophen < 5.0 ug/mL (10-30); Salicylate < 0.3 mg/dL (3-10)
[2022-05-17 18:44] LABS: Amphetamines Screen Urine Negative (Negative); Barbiturates Screen Urine Negative (Negative); Benzodiazepines Screen Urine Negative (Negative); Cocaine Screen Urine Negative (Negative); Opiate Screen Urine Negative (Negative); PCP Screen Urine Negative (Negative); THC Screen Urine Negative (Negative)
[2022-05-17] MEDS: acetaminophen 500 mg Tablet 1000 MG PO (19:33)
[2022-05-17 20:11] VITALS: BP 157/66; PULSE 101; RESP 18; TEMP 36.7; O2SAT 96
[2022-05-17] MEDS: OLANZapine 5 mg ODT PO (21:11)
[2022-05-17] MEDS: LORazepam 2 mg Tablet PO (21:15)
[2022-05-17] MEDS: trazodone 100 mg Tablet PO (21:16)
[2022-05-17] MEDS: quetiapine 100 mg Tablet PO (21:17)
[2022-05-18 06:00] VITALS: BP 127/85; PULSE 68; RESP 17; O2SAT 97
[2022-05-18] MEDS: thiamine 100 mg Tablet PO (08:22)
[2022-05-18] MEDS: multivitamin therapeutic Tablet 1 TAB PO (08:22)
[2022-05-18] MEDS: quetiapine 25 mg Tablet 50 MG PO ×2 (08:22→17:33)
[2022-05-18] MEDS: folic acid 1 mg Tablet PO (08:22)
--- NOTE | 2022-05-18 10:44 | P.NPUHP_ITS ---
Providers/Chief Complaint Admitting Physician: Sam Bond MD Primary Care Provider: Sam Bond MD Chief Complaint: SI,MHE HPI NPU History of Present Illness Emil Castro is a 51 year old male who presented to the emergency part with the following report: Chief Complaint: Psychiatric Symptoms Stated Complaint: SI,MHE Time Seen by Provider: 05/17/22 17:36 Source: patient Mode of arrival: ambulatory Limitations: no limitations History of Present Illness: Patient is a 51-year-old male who is well-known to the emergency department here yet again for complaints of suicidal ideations, homicidal ideations, auditory hallucinations, and aggression/anger outbursts. Patient has had multiple NPU admissions over the past few months. Patient st ates he never has followed up with [facility] or a primary care provider after his discharges. Patient states he is taking his prescribed medications. He continues to drink alcohol. States he has a plan to hang himself with a rope. He states he feels homicidal towards men in general and sometimes wants to slit their throats. MD complaint: suicidal ideation and other (anger/agression, HI, auditory sandeep lucinations) Duration: constant History of same: Yes Relieving factors: none Exacerbating factors: none Context: recent alcohol abuse Associated psychiatric symptoms: depression, suicidal ideation, homicidal ideation and auditory hallucinations Associated symptoms: Reports auditory hallucinations, depression, homicidal ideation and suicidal ideation; Deny visual hallucinations Treatments prior to arrival: none If self harm: admits thoughts of self harm and has plan. He was admitted to the Neuropsych Unit for definitive treatment of issues. He presents like he has recently with significant irritability reporting concerned he is going to hurt someone. He reported that his medication based on his discharge functioning that seems unlikely. However he continues significant difficulties with his housing and managing resources. The fairly distant story reporting openness to continue medication but not expressing any clarity as what he was to do next. We discussed working with treatment team on Friday to start to look more viable and sustainable housing and resources, which she agrees with but not emphatically. We agreed to restart his medication and see how he does with regular administration and probably consider increasing his bedtime Seroquel and he understood agreed to proceed as is documented in this note Per his 05/08/2022 [facility] inpatient psychiatric discharge summary: SI Brief History: History of Present Illness Emil Castro is a 51 year old male who presented to the emergency department with the following report: Chief Complaint: Psychiatric Symptoms Stated Complaint: SI Time Seen by Provider: 05/01/22 19:21 Source: patient Mode of arrival: ambulatory Limitations: no limitations History of Present Illness: 51-year-old male states he has a history of depression along with bipolar he had a suicide attempt impassable he states over the last 5 to 6 days he been having increased irritability along with suicidal thoughts he states he had thoughts of hanging himself from a tree. He states that he realized that he needed to get help or reason to harm himself he denies any worsening proving factors he is currently not on any meds. Associated symptoms: Reports depression and suicidal ideation He was admitted to the neuropsychiatric unit for definitive treatment of those issues. He presents today reporting that he had been spending most of his time after his last discharge in [place]. He reports that he has been working and doing fairly well. He reports initially he was taking his medication but at some point he stopped taking it and he could not give any reasonable explanation for why he did that or why he has a habit of doing that. He reports that he came back to [place] for some time off and to do some camping. He reports that he started having great irritability with people around him started having some really negative thoughts about reacting to his irritability. He thought then that it was best to come to the hospital before he did something that he regretted. We discussed the risk benefits and alternatives of resuming the medications he had previously done well on and he understood and agreed to proceed as is documented in this note. An excerpt of his last discharge summary is included below for context as he was not interested in details from a history standpoint. Per his 08/27/2021 [facility] inpatient psychiatric discharge summary: Discharge Diagnosis (1) Depression with suicidal ideation: Status: Resolved (2) Suicide attempt: Status: Acute (3) Alcohol dependence, in remission: Status: Acute (4) Drug-induced psychotic disorder: Status: Acute (5) Antisocial personality disorder: Status: Chronic (6) Depressed bipolar I disorder: Status: Resolved Permanent problem details: Patient does not name and get his prescriptions filled when discharged. I am discontinuing all his meds and referring him to outpatient follow-up. Reason for Visit Reason for Visit: SI Brief History: History of Present Illness Emil Castro is a 51 year old male who presented to the emergency department the following report: Chief complaint: Psychiatric Symptoms Stated complaint: SI Time Seen by Provider: 08/23/21 19:44 History of Present Illness: HPI: [51]yo patient w/ hx of depression presenting for suicidal ideation with plan. Patient plans to hang himself and decided against the last minute and came in to the ED. On arrival, the patient is AAOx3 and cooperative with my evaluation. No focal complaints of chest pain, shortness of breath, palpitations, N/V, focal GI/ complaints. Currently denies HI. No complaints of hallucinations. Onset: acute Duration: ongoing Location: home Severity: severe Associated symptoms: Deny chest pain, dyspnea, nausea, rash, palpitations or vomiting He was admitted to the neuropsychiatric unit for definitive treatment of those issues. Patient is well-known to the unit from multiple past inpatient stays the last of which was in June. He had previously been here much more often but had been having a modicum of success followed by some recent challenges again. He reports that after his last stay he had gone to [place] and was doing fairly well and told someone on convoluted story about how he was coming back here to get his mail arranged and that he decided once he was here that he was going to go ahead and say and he went to [employer] [facility] and they were lining up a place for him to stay in the next 2 or 3 days. But then frustrations and bad choices get the best of him which led him to presenting to the hospital yesterday. He reports another problem that led to him coming his way was that he has he will get his medication for about the last month or so he would not and could not explain whether this was related to him not following through on something to get refills or some other concern. Review of the chart suggested maybe he was given refills in the left in beginning of June. Unclear why that occurred. He was indicated to moving forward, getting his own place to [employer] [facility] getting back on medication and trying to remain in the right direction. Documentation shows that he has been doing better when he comes to his addictive behavior however he reports sobriety extending back more than 6 months and I am unconvinced that that is accurate though. We discussed the risk benefits alternatives of getting his medications restarted and trying to assist him in stability on that front and he understood agreed proceed as is documented in this note. An excerpt of his June stay is included below for context. Hospital course 05/08/22 : He slowly acclimated to the individual, group and milieu therapies provided.? He presented reporting irritability being off of medication.? Seroquel was started at bedtime and 2 daytime doses were added.? He was titrated up to 50 mg twice a day and 100 milligrams at night.? He continues to have challenging living successes at home is becoming factor.? He dorsoplantar this maneuver he has had some success.? With his medications restarted and he did have significant improvement.? He was able to contract for safety outside of the hospital prior to discharge.? During the hospitalization, patient had routine laboratory studies which were within normal limits except for few outliers.? Additionally there was a general medical evaluation which was also within normal limits and revealed no new acute processes. Discharge Summary: At the time of discharge, lethality was denied and psychosis was resolving.? Mood and anxiety were well managed.? Patient endorsed a plan to avoid all drugs of abuse and follow-up with the aftercare recommendations of the treatment team.? Patient was evaluated and deemed to be absent credible lethality, and was voluntary and denied wanting any continued inpatient hospitalization, so he was discharged. Meds NPU Home Medications Medication Instructions Recorded Confirmed Last Taken Type quetiapine 25 mg tablet 50 mg PO BID 30 days #120 tabs 05/08/22 05/17/22 05/17/22 09:00 Rx trazodone 100 mg tablet 100 mg PO BEDTIME 30 days #30 tabs 05/08/22 05/17/22 05/16/22 21:00 Rx quetiapine 100 mg tablet (Seroquel) 100 mg PO BEDTIME 05/17/22 05/17/22 05/16/22 21:00 History Allergies Allergy/AdvReac Type Severity Reaction Status Date / Time Penicillins Allergy ALGY-Hives Verified 09/13/21 07:40 PFS NPU PFSH: Medical History Alcohol dependence, in remission Bipolar 2 disorder Drug-induced psychotic disorder Malingering Psychiatric care Social History Smoking and tobacco status: current every day smoker Mental Status Exam MSE Comments: This is an obese white male in hospital scrubs with limited grooming and adequate eye contact.? No abnormal movements except for psychomotor agitation.? Mostly cooperative with exam in mild to moderate distress.? Speech was increased rate and normal volume.? Mood described as people are making me mad, affect congruent.? Thought process mostly organized.? Thought content: Patient endorsed suicidal ideations and endorsed aggressive ideation towards others, there were no delusions reported or noted, he endorsed auditory but denied visual hallucinations.? Attention and concentration were limited and memory was mostly reliable but none were formally tested.? He is alert and oriented x3.? Insight and judgment are impaired, impulse control is impaired. Vitals/I&O/Wt Last Vital Signs Temp 98.0 F 05/17/22 20:11 Pulse 68 05/18/22 06:00 Resp 17 05/18/22 06:00 BP 127/85 05/18/22 06:00 Pulse Ox 97 05/18/22 06:00 O2 Del Method 05/17/22 20:51 Weight last 48 hrs Weight 104.326 kg Data NPU 05/17/22 18:00 05/17/22 18:00 A&P Assessment and plan (1) Depression with suicidal ideation: (2) Suicide attempt: (3) Alcohol dependence, in remission: (4) Drug-induced psychotic disorder: (5) Antisocial personality disorder: (6) Depressed bipolar I disorder: Plan This is a 51-year-old white male with a long history of multiple inpatient hospitalizations often with concerns for malingering who presents today reporting that he has been taking his medication but but struggling with situations where people are creating irritability and aggressive/suicidal and him. 1.? Restart Seroquel and trazodone. Consider increasing bedtime Seroquel to 200 mg 2.? Continue every 15 minute checks for safety. 3.? Encourage individual, group and milieu therapies. 4.? Encourage sober living treatment after discharge at the highest level of care to which he is willing to commit.? Involuntary Hold Information 96 Hour Hold: 96 Hour Involuntary Admission: No Attestations NPU Medical Necessity Statement*: Inpatient hospitalization is medically necessary and the clinically appropriate intervention at this time.? We will monitor medications and make changes as indicated.? Patient will be in the hospital for over two midnights.? Likely length of stay 4-6 days. Coding Level of Care Code Acute Code for Chg Fwd Diagnoses Depression with suicidal ideation F32.A; R45.851 Suicide attempt T14.91XA Alcohol dependence, in remission F10.21 Drug-induced psychotic disorder F19.959 Antisocial personality disorder F60.2 Depressed bipolar I disorder F31.9
[2022-05-18 14:00] VITALS: BP 120/73; PULSE 86; RESP 20; TEMP 36.5; O2SAT 99
[2022-05-18 20:40] VITALS: BP 114/63; PULSE 87; RESP 16; TEMP 36.4; O2SAT 93; BMI 37.3
[2022-05-18] MEDS: ondansetron 4 MG Tablet PO (21:43)
[2022-05-18] MEDS: trazodone 100 mg Tablet PO (21:43)
[2022-05-18] MEDS: LORazepam 2 mg Tablet PO (21:43)
[2022-05-18] MEDS: quetiapine 100 mg Tablet PO (21:43)
[2022-05-18] MEDS: acetaminophen 325 mg Tablet 650 MG PO (21:44)
[2022-05-19 06:00] VITALS: BP 110/72; PULSE 68; RESP 17; TEMP 36.3; O2SAT 96
--- NOTE | 2022-05-19 06:51 | W.PM.NPUPNS ---
Subjective NPU Subjective: Patient presents today reporting that he continues to have aggressive thoughts to others. He did have a positive blood alcohol approximately endorsed sobriety and addiction not being the tipping point as it has been the past. We discussed the treatment team returning tomorrow and they and Dr. Keo anders were stable circumstances for discharge. Mental Status Exam MSE Comments: This is an obese white male in hospital scrubs with limited grooming and adequate eye contact.? No abnormal movements except for psychomotor agitation.? Mostly cooperative with exam in mild to moderate distress.? Speech was increased rate and normal volume.? Mood described as people are making me mad, affect congruent.? Thought process mostly organized.? Thought content: Patient endorsed suicidal ideations and endorsed aggressive ideation towards others, there were no delusions reported or noted, he endorsed auditory but denied visual hallucinations.? Attention and concentration were limited and memory was mostly reliable but none were formally tested.? He is alert and oriented x3.? Insight and judgment are impaired, impulse control is impaired. Vitals/I&O/Wt Last Vital Signs Temp 97.4 F L 05/19/22 06:00 Pulse 68 05/19/22 06:00 Resp 17 05/19/22 06:00 BP 110/72 05/19/22 06:00 Pulse Ox 96 05/19/22 06:00 O2 Del Method 05/19/22 06:00 Weight last 48 hrs Weight 117.991 kg Data NPU 05/17/22 18:00 05/17/22 18:00 A&P Assessment and plan (1) Depression with suicidal ideation: (2) Suicide attempt: (3) Alcohol dependence, in remission: (4) Drug-induced psychotic disorder: (5) Antisocial personality disorder: (6) Depressed bipolar I disorder: Plan This is a 51-year-old white male with a long history of multiple inpatient hospitalizations often with concerns for malingering who presents today reporting that he has been taking his medication but but struggling with situations where people are creating irritability and aggressive/suicidal and him. 1.? Restart Seroquel and trazodone. Consider increasing bedtime Seroquel to 200 mg 2.? Continue every 15 minute checks for safety. 3.? Encourage individual, group and milieu therapies. 4.? Encourage sober living treatment after discharge at the highest level of care to which he is willing to commit.? 5. Concern for malingering often exist, but clearly appears to need a more stable situation to thrive Involuntary Hold Information 96 Hour Hold: 96 Hour Involuntary Admission: No Attestations NPU Medical Necessity Statement*: Inpatient hospitalization is medically necessary and the clinically appropriate intervention at this time.? We will monitor medications and make changes as indicated. Likely length of stay 3-5 days. Coding Level of Care Code Acute Code for g Fwd Diagnoses Depression with suicidal ideation F32.A; R45.851 Suicide attempt T14.91XA Alcohol dependence, in remission F10.21 Drug-induced psychotic disorder F19.959 Antisocial personality disorder F60.2 Depressed bipolar I disorder F31.9
[2022-05-19] MEDS: folic acid 1 mg Tablet PO (08:57)
[2022-05-19] MEDS: multivitamin therapeutic Tablet 1 TAB PO (08:57)
[2022-05-19] MEDS: quetiapine 25 mg Tablet 50 MG PO ×2 (08:57→17:53)
[2022-05-19] MEDS: thiamine 100 mg Tablet PO (08:57)
[2022-05-19] MEDS: LORazepam 2 mg Tablet PO ×2 (12:32→21:58)
[2022-05-19] MEDS: OLANZapine 5 mg ODT PO (12:35)
[2022-05-19 14:00] VITALS: BP 108/72; PULSE 90; RESP 20; TEMP 36.7; O2SAT 94
[2022-05-19] MEDS: quetiapine 100 mg Tablet PO (21:54)
[2022-05-19] MEDS: trazodone 100 mg Tablet PO (21:54)
[2022-05-19] MEDS: acetaminophen 325 mg Tablet 650 MG PO (21:57)
[2022-05-19] MEDS: ondansetron 4 MG Tablet PO (21:58)
[2022-05-19 22:00] VITALS: BP 112/63; PULSE 87; RESP 17; TEMP 36.4; O2SAT 94
[2022-05-20 06:00] VITALS: BP 96/66; PULSE 70; RESP 16; TEMP 36.6; O2SAT 96
[2022-05-20] MEDS: multivitamin therapeutic Tablet 1 TAB PO (08:57)
[2022-05-20] MEDS: folic acid 1 mg Tablet PO (08:57)
[2022-05-20] MEDS: quetiapine 25 mg Tablet 50 MG PO ×2 (08:57→17:18)
[2022-05-20] MEDS: thiamine 100 mg Tablet PO (08:57)
[2022-05-20] MEDS: nicotine 4 mg lozenge MUCOUS MEM ×5 (11:58→20:21)
[2022-05-20 14:00] VITALS: BP 108/77; PULSE 84; RESP 17; TEMP 36.3; O2SAT 98
--- NOTE | 2022-05-20 14:36 | P.NPUPN_ITS ---
Subjective NPU Subjective: Patient is a 51-year-old male admitted with suicidal ideation homicidal ideation and hallucinations. He had reported having plans to hang himself with a rope. He had continue to report depressed mood and suicidal thoughts. He had reported that he had been using alcohol as well. Patient had continued to isolate himself on the milieu. He had reported that he was uncertain as to where he would be living when discharged here. He had endorsed some feelings of hopelessness and reported that his depression continued to be overwhelming at times. Mental Status Exam MSE Comments: This is an obese white male in hospital scrubs with limited grooming and adequate eye contact.? No abnormal movements except for psychomotor retardation.? He appeared in moderate distress and was cooperative on inte rview.? Speech was normal in rate and normal volume.? Mood described as depressed and angry. His affect was restricted in range and somewhat flat. Thought process mostly organized.? Thought content: Patient endorsed suicidal ideations and endorsed aggressive ideation towards others, there were no delusions reported or noted, he endorsed auditory but denied visual hallucinations.? Attention and concentration were limited and memory was mostly reliable but none were formally tested.? He is alert and oriented x3.? Insight and judgment are impaired, impulse control is impaired. Vitals/I&O/Wt Last Vital Signs Temp 97.9 F 05/20/22 06:00 Pulse 70 05/20/22 06:00 Resp 16 05/20/22 06:00 BP 96/66 05/20/22 06:00 Pulse Ox 96 05/20/22 06:00 O2 Del Method 05/20/22 06:00 Weight last 48 hrs Weight 117.991 kg Data NPU 05/17/22 18:00 05/17/22 18:00 A&P Assessment and plan (1) Depression with suicidal ideation: (2) Suicide attempt: (3) Alcohol dependence, in remission: (4) Drug-induced psychotic disorder: (5) Antisocial personality disorder: (6) Depressed bipolar I disorder: Plan This is a 51-year-old white male with a long history of multiple inpatient hospitalizations often with concerns for malingering who presents today reporting that he has been taking his medication but but struggling with situations where people are creating irritability and aggressive/suicidal and him. 1.? Increase Seroquel to 200 mg at night with continued mood titration upwards to target hallucinations and depression. 2.? Continue every 15 minute checks for safety. 3.? Encourage individual, group and milieu therapies. 4.? Encourage sober living treatment after discharge at the highest level of care to which he is willing to commit.? 5. Concern for malingering often exist, but clearly appears to need a more stable situation to thrive Involuntary Hold Information 96 Hour Hold: 96 Hour Involuntary Admission: No Attestations NPU Medical Necessity Statement*: Inpatient hospitalization is medically necessary and the clinically appropriate intervention at this time.? We will monitor medications and make changes as indicated. Likely length of stay 3-5 days. Coding Level of Care Code Acute Code for Chg Fwd Diagnoses Depression with suicidal ideation F32.A; R45.851 Suicide attempt T14.91XA Alcohol dependence, in remission F10.21 Drug-induced psychotic disorder F19.959 Antisocial personality disorder F60.2 Depressed bipolar I disorder F31.9
[2022-05-20] MEDS: hyDROXYzine 25 mg Capsule 50 MG PO (14:50)
--- NOTE | 2022-05-20 14:50 | PC.NURSE ---
PRN VISTARIL 50 MG GIVEN PO PER PT C/O STATED ANXIETY
[2022-05-20] MEDS: trazodone 100 mg Tablet PO (20:21)
[2022-05-20] MEDS: quetiapine 100 mg Tablet 200 MG PO (20:21)
[2022-05-20 20:36] VITALS: BP 115/78; PULSE 104; RESP 18; TEMP 36.8; O2SAT 98
[2022-05-20] MEDS: calcium carbonate 500 mg Chew Tablet PO (23:42)
[2022-05-21 06:00] VITALS: BP 121/70; PULSE 73; RESP 18; TEMP 36.5; O2SAT 95
[2022-05-21] MEDS: multivitamin therapeutic Tablet 1 TAB PO (08:18)
[2022-05-21] MEDS: folic acid 1 mg Tablet PO (08:18)
[2022-05-21] MEDS: thiamine 100 mg Tablet PO (08:19)
[2022-05-21] MEDS: nicotine 4 mg lozenge MUCOUS MEM ×6 (08:19→20:10)
[2022-05-21] MEDS: hyDROXYzine 25 mg Capsule 50 MG PO (13:27)
[2022-05-21 14:00] VITALS: BP 124/77; PULSE 95; RESP 17; TEMP 36.9; O2SAT 96
[2022-05-21] MEDS: OLANZapine 5 mg ODT PO (15:23)
--- NOTE | 2022-05-21 15:32 | PC.NURSE ---
PRN MED PT GIVEN 5MG ZYPREXA ZYDIS FOR STATED ANXIETY/AGITATION, WILL CONTINUE TO MONITOR.
--- NOTE | 2022-05-21 17:32 | W.PM.NPUPNS ---
Subjective NPU Subjective: Patient is a 51-year-old male admitted with suicidal ideation, homicidal ideation, and auditory hallucinations. He had reported having plans to hang himself with a rope. He had reported having occasional suicidal thoughts and still reported feeling paranoid and angry. 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 He had been able to attend groups. He had reported having difficulties with managing his anger in the past. He had reported no side effects from his Seroquel at this time. Mental Status Exam MSE Comments: This is an obese white male in hospital scrubs with limited grooming and adequate eye contact.? No abnormal involuntary motor movements except for psychomotor retardation.? He appeared in moderate distress and was cooperative on interview.? Speech was normal in rate and normal volume.? Mood described as angry. His affect was flat. Thought process mostly organized.? Thought content: Patient endorsed suicidal ideation and endorsed aggressive ideation towards others, there were no delusions reported or noted, he endorsed auditory but denied visual hallucinations.? Attention and concentration were limited and memory was mostly reliable but none were formally tested.? He is alert and oriented x3.? Insight and judgment are impaired, impulse control is impaired. Vitals/I&O/Wt Last Vital Signs Temp 98.5 F 05/21/22 14:00 Pulse 95 05/21/22 14:00 Resp 17 05/21/22 14:00 BP 124/77 05/21/22 14:00 Pulse Ox 96 05/21/22 14:00 O2 Del Method 05/21/22 06:00 Data NPU 05/17/22 18:00 05/17/22 18:00 A&P Assessment and plan (1) Depression with suicidal ideation: (2) Suicide attempt: (3) Alcohol dependence, in remission: (4) Drug-induced psychotic disorder: (5) Antisocial personality disorder: (6) Depressed bipolar I disorder: Plan This is a 51-year-old white male with a long history of multiple inpatient hospitalizations often with concerns for malingering who presents today reporting that he has been taking his medication but but struggling with situations where people are creating irritability and aggressive/suicidal and him. 1.? Increase Seroquel to 300 mg at night with continued mood titration upwards to target hallucinations and depression. 2.? Continue every 15 minute checks for safety. 3.? Encourage individual, group and milieu therapies. 4.? Encourage sober living treatment after discharge at the highest level of care to which he is willing to commit.? 5. Concern for malingering often exist, but clearly appears to need a more stable situation to thrive Involuntary Hold Information 96 Hour Hold: 96 Hour Involuntary Admission: No Attestations NPU Medical Necessity Statement*: Inpatient hospitalization is medically necessary and the clinically appropriate intervention at this time.? We will monitor medications and make changes as indicated with likely length of stay 3-5 days. Coding Level of Care Code Acute Code for Chg Fwd Diagnoses Depression with suicidal ideation F32.A; R45.851 Suicide attempt T14.91XA Alcohol dependence, in remission F10.21 Drug-induced psychotic disorder F19.959 Antisocial personality disorder F60.2 Depressed bipolar I disorder F31.9
[2022-05-21] MEDS: trazodone 100 mg Tablet PO (20:10)
[2022-05-21] MEDS: quetiapine 100 mg Tablet 300 MG PO (20:10)
[2022-05-21 22:00] VITALS: BP 111/77; PULSE 94; RESP 16; TEMP 36.7; O2SAT 97
[2022-05-22 06:00] VITALS: BP 116/79; PULSE 72; TEMP 36.4; O2SAT 95
[2022-05-22] MEDS: multivitamin therapeutic Tablet 1 TAB PO (08:04)
[2022-05-22] MEDS: folic acid 1 mg Tablet PO (08:04)
[2022-05-22] MEDS: thiamine 100 mg Tablet PO (08:04)
[2022-05-22] MEDS: nicotine 4 mg lozenge MUCOUS MEM ×6 (08:04→18:35)
[2022-05-22 14:00] VITALS: BP 119/79; PULSE 93; RESP 18; TEMP 36.5; O2SAT 97
--- NOTE | 2022-05-22 15:04 | W.PM.NPUPNS ---
Subjective NPU Subjective: Patient is a 51-year-old male admitted with suicidal ideation, homicidal ideation, and auditory hallucinations. He had reported having angry thoughts at times and stated that he had thoughts of hurting other people although he was nonspecific. He had not been aggressive on the milieu. He had reported having depression for an extended period of time and stated that he struggles with sleep. He reports that he had been contemplating hanging himself previously but stated that he felt that he could have some improvement with his mood if his voices were quieter. He had continued to isolate himself on the milieu although he was able to attend groups. There was no acts of aggression on the milieu. He had acknowledged a significant history of alcohol abuse in the past but stated that he was motivated to remain off of alcohol. He had reported a lack of good social supports in the area. Mental Status Exam MSE Comments: This is an obese white male in hospital scrubs with limited grooming and adequate eye contact.? No abnormal involuntary motor movements except for psychomotor retardation.? He appeared in moderate distress and was cooperative on interview.? Speech was normal in rate and normal volume.? Mood described as frustrated. His affect was restricted in range. Thought process mostly linear and organized.? Thought content: Patient endorsed suicidal ideation and endorsed aggressive ideation towards others, there were no delusions reported or noted, he endorsed auditory but denied visual hallucinations.? Attention and concentration were limited and memory was mostly reliable but none were formally tested.? He is alert and oriented x3.? Insight and judgment are impaired. His impulse control is impaired. Vitals/I&O/Wt Last Vital Signs Temp 97.5 F L 05/22/22 06:00 Pulse 72 05/22/22 06:00 Resp 16 05/21/22 22:00 BP 116/79 05/22/22 06:00 Pulse Ox 95 05/22/22 06:00 O2 Del Method 05/22/22 06:00 Data NPU 05/17/22 18:00 05/17/22 18:00 A&P Assessment and plan (1) Depression with suicidal ideation: (2) Suicide attempt: (3) Alcohol dependence, in remission: (4) Drug-induced psychotic disorder: (5) Antisocial personality disorder: (6) Depressed bipolar I disorder: Plan This is a 51-year-old white male with a long history of multiple inpatient hospitalizations often with concerns for malingering who presents today reporting that he has been taking his medication but but struggling with situations where people are creating irritability and aggressive/suicidal and him. 1.? Increase Seroquel to 400 mg at night with continued mood titration upwards to target hallucinations and depression. Trazodone 50mg at night. 2.? Continue every 15 minute checks for safety. 3.? Encourage individual, group and milieu therapies. 4.? Encourage sober living treatment after discharge at the highest level of care to which he is willing to commit.? 5. Concern for malingering often exist, but clearly appears to need a more stable situation to thrive Involuntary Hold Information 96 Hour Hold: 96 Hour Involuntary Admission: No Attestations NPU Medical Necessity Statement*: Inpatient hospitalization is medically necessary and the clinically appropriate intervention at this time.? We will monitor medications and make changes as indicated with likely length of stay 3-5 days. Coding Level of Care Code Acute Code for [facility] Fwd Diagnoses Depression with suicidal ideation F32.A; R45.851 Suicide attempt T14.91XA Alcohol dependence, in remission F10.21 Drug-induced psychotic disorder F19.959 Antisocial personality disorder F60.2 Depressed bipolar I disorder F31.9
[2022-05-22] MEDS: OLANZapine 5 mg ODT PO (15:33)
--- NOTE | 2022-05-22 16:38 | W.PM.NPUPNS ---
Subjective NPU Subjective: Patient is a 51-year-old male admitted with suicidal ideation, homicidal ideation, and auditory hallucinations. He had reported having angry thoughts at times and stated that he had thoughts of hurting other people although he was nonspecific. He had not been aggressive on the milieu. He had reported having depression for an extended period of time and stated that he struggles with sleep. He reports that he had been contemplating hanging himself previously but stated that he felt that he could have some improvement with his mood if his voices were quieter. He had continued to isolate himself on the milieu although he was able to attend groups. There was no acts of aggression on the milieu. He had acknowledged a significant history of alcohol abuse in the past but stated that he was motivated to remain off of alcohol. He had reported a lack of good social supports in the area. Vitals/I&O/Wt Last Vital Signs Temp 97.7 F 05/22/22 14:00 Pulse 93 05/22/22 14:00 Resp 18 05/22/22 14:00 BP 119/79 05/22/22 14:00 Pulse Ox 97 05/22/22 14:00 O2 Del Method 05/22/22 06:00 Data NPU 05/17/22 18:00 05/17/22 18:00 Involuntary Hold Information 96 Hour Hold: 96 Hour Involuntary Admission: No Coding Level of Care Code Acute Code for [facility] Fwjulio
[2022-05-22] MEDS: trazodone 50 mg Tablet PO (20:01)
[2022-05-22 21:59] VITALS: BP 112/71; PULSE 98; RESP 16; TEMP 36.4; O2SAT 98
[2022-05-23 06:00] VITALS: BP 146/78; PULSE 79; RESP 18; TEMP 37; O2SAT 96
[2022-05-23] MEDS: nicotine 4 mg lozenge MUCOUS MEM ×7 (08:25→18:34)
[2022-05-23] MEDS: multivitamin therapeutic Tablet 1 TAB PO (08:46)
[2022-05-23] MEDS: thiamine 100 mg Tablet PO (08:46)
[2022-05-23] MEDS: folic acid 1 mg Tablet PO (08:46)
[2022-05-23 14:00] VITALS: BP 127/83; PULSE 60; RESP 18; TEMP 36.7; O2SAT 98
[2022-05-23] MEDS: OLANZapine 5 mg ODT PO (16:05)
--- NOTE | 2022-05-23 16:06 | PC.NURSE ---
[employer]N [employer] Patient approached nurse and stated he was getting angry and wanted to know if we could help calm him down. This RN asked if anything in particular made him feel angry at this time and he stated nothing in particular had, just too much thinking. Administered zyprexa odt 5mg as this has helped him in the past.
--- NOTE | 2022-05-23 16:28 | P.NPUPN_ITS ---
Subjective NPU Subjective: Patient is a 51-year-old male admitted with suicidal ideation, homicidal ideation, and auditory hallucinations. He continued to report having angry thoughts but states that he had been sleeping a little bit better. He had reported still having occasional thoughts of hurting others but stated that they were not targeted towards anyone in particular. There were no episodes of aggression on the milieu. He reported that the recurring thoughts of wanting to hang himself had diminished. He denied any feelings of hopelessness. He had reported having struggles with being around other people and endorsed some PTSD related symptoms including occasional nightmares. He was able to attend groups but remains somewhat quiet and on the periphery. Mental Status Exam MSE Comments: This is an obese white male in hospital scrubs with limited grooming and adequate eye contact.? No abnormal involuntary motor movements except for psychomotor retardation.? He appeared in mild distress and was coope rative on interview.? Speech was normal in rate and normal volume.? Mood described as okay. His affect remained flat. Thought process mostly linear and organized.? Thought content: Patient endorsed suicidal ideation and endorsed aggressive ideation towards others, there were no delusions reported or noted, he endorsed auditory but denied visual hallucinations.? Attention and concentration were limited and memory was mostly reliable but none were formally tested.? He is alert and oriented x3.? Insight and judgment are impaired. His impulse control is impaired. Vitals/I&O/Wt Last Vital Signs Temp 98.0 F 05/23/22 14:00 Pulse 60 05/23/22 14:00 Resp 18 05/23/22 14:00 BP 127/83 05/23/22 14:00 Pulse Ox 98 05/23/22 14:00 O2 Del Method 05/23/22 06:00 Data NPU 05/17/22 18:00 05/17/22 18:00 A&P Assessment and plan (1) Depression with suicidal ideation: (2) Suicide attempt: (3) Alcohol dependence, in remission: (4) Drug-induced psychotic disorder: (5) Antisocial personality disorder: (6) Depressed bipolar I disorder: Plan This is a 51-year-old white male with a long history of multiple inpatient hospitalizations often with concerns for malingering who presents today reporting that he has been taking his medication but but struggling with situations where people are creating irritability and aggressive/suicidal and him. 1.? Increase Seroquel to 500 mg at night with continued mood titration upwards t o target hallucinations and depression. Trazodone 50mg at night. 2.? Continue every 15 minute checks for safety. 3.? Encourage individual, group and milieu therapies. 4.? Encourage sober living treatment after discharge at the highest level of care to which he is willing to commit.? 5. Concern for malingering often exist, but clearly appears to need a more stable situation to thrive Involuntary Hold Information 96 Hour Hold: 96 Hour Involuntary Admission: No Attestations NPU Medical Necessity Statement*: Inpatient hospitalization is medically necessary and the clinically appropriate intervention at this time.? We will monitor medications and make changes as indicated with likely length of stay 3-5 days. Coding Level of Care Code Acute Code for g Fwd Diagnoses Depression with suicidal ideation F32.A; R45.851 Suicide attempt T14.91XA Alcohol dependence, in remission F10.21 Drug-induced psychotic disorder F19.959 Antisocial personality disorder F60.2 Depressed bipolar I disorder F31.9
[2022-05-23] MEDS: quetiapine 100 mg Tablet 500 MG PO (21:05)
[2022-05-23 22:00] VITALS: RESP 15
[2022-05-24 06:00] VITALS: RESP 18
[2022-05-24] MEDS: nicotine 4 mg lozenge MUCOUS MEM ×6 (08:13→20:35)
[2022-05-24] MEDS: folic acid 1 mg Tablet PO (08:13)
[2022-05-24] MEDS: acetaminophen 325 mg Tablet 650 MG PO ×2 (08:13→17:58)
[2022-05-24] MEDS: thiamine 100 mg Tablet PO (08:13)
[2022-05-24] MEDS: multivitamin therapeutic Tablet 1 TAB PO (08:13)
[2022-05-24 14:00] VITALS: BP 118/76; PULSE 90; RESP 20; TEMP 36.7; O2SAT 96
--- NOTE | 2022-05-24 19:50 | W.PM.NPUPNS ---
Subjective NPU Subjective: Patient is a 51-year-old male admitted with suicidal ideation, homicidal ideation, and auditory hallucinations. He continued to have thoughts of hurting himself and stated that he continued to have angry thoughts about killing other people although he was nonspecific regarding this. He had admitted to having committed aggression leading to incarceration and stated that he had been incarcerated for charges of robbery. He had reported frequent awakenings at night. He reported occasional feelings of depression and stated having periods of depression for many years and recurred. Staff notes the patient was able to attend groups. Patient reported feeling comfortable speaking in crowds. He continued to isolate himself. Mental Status Exam MSE Comments: This is an obese white male in hospital scrubs with limited grooming and poor eye contact.? No abnormal involuntary motor movements except for psychomotor retardation.? He appeared in mild distress and was cooperative on interview.? Speech was normal in rate and normal volume.? Mood described as still down His affect remained flat. Thought process mostly linear and organized.? Thought content: Patient endorsed suicidal ideation and endorsed aggressive ideation towards others, there were no delusions reported or noted, he endorsed auditory but denied visual hallucinations.? Attention and concentration were limited and memory was mostly reliable but none were formally tested.? He is alert and oriented x3.? Insight and judgment are impaired. His impulse control is improved. . Vitals/I&O/Wt Last Vital Signs Temp 98.1 F 05/24/22 14:00 Pulse 90 05/24/22 14:00 Resp 20 H 05/24/22 14:00 BP 118/76 05/24/22 14:00 Pulse Ox 96 05/24/22 14:00 O2 Del Method 05/24/22 14:00 Data NPU 05/17/22 18:00 05/17/22 18:00 A&P Assessment and plan (1) Depression with suicidal ideation: (2) Suicide attempt: (3) Alcohol dependence, in remission: (4) Drug-induced psychotic disorder: (5) Antisocial personality disorder: (6) Depressed bipolar I disorder: Plan This is a 51-year-old white male with a long history of multiple inpatient hospitalizations often with concerns for malingering who presents today reporting that he has been taking his medication but but struggling with situations where people are creating irritability and aggressive/suicidal and him. 1.? Continue Seroquel 500 mg at night with continued mood titration upwards to target hallucinations and depression. Continue Trazodone at 50mg at night. 2.? Continue every 15 minute checks for safety. 3.? Encourage individual, group and milieu therapies. 4.? Encourage sober living treatment after discharge at the highest level of care to which he is willing to commit.? 5. Concern for malingering often exist, but clearly appears to need a more stable situation to thrive Involuntary Hold Information 96 Hour Hold: 96 Hour Involuntary Admission: No Attestations NPU Medical Necessity Statement*: Inpatient hospitalization is medically necessary and the clinically appropriate intervention at this time.? We will monitor medications and make changes as indicated with likely length of stay 3-5 days. Coding Level of Care Code Acute Code for g Fwd Diagnoses Depression with suicidal ideation F32.A; R45.851 Suicide attempt T14.91XA Alcohol dependence, in remission F10.21 Drug-induced psychotic disorder F19.959 Antisocial personality disorder F60.2 Depressed bipolar I disorder F31.9
[2022-05-24] MEDS: quetiapine 100 mg Tablet 500 MG PO (20:34)
[2022-05-24 22:00] VITALS: BP 131/86; PULSE 82; RESP 16; TEMP 36.3; O2SAT 99
[2022-05-25 06:00] VITALS: BP 131/88; PULSE 75; RESP 16; TEMP 36.2; O2SAT 97
[2022-05-25] MEDS: nicotine 4 mg lozenge MUCOUS MEM ×5 (08:33→20:01)
[2022-05-25] MEDS: thiamine 100 mg Tablet PO (08:33)
[2022-05-25] MEDS: folic acid 1 mg Tablet PO (08:33)
[2022-05-25] MEDS: multivitamin therapeutic Tablet 1 TAB PO (08:33)
[2022-05-25 14:00] VITALS: BP 119/87; PULSE 89; RESP 17; TEMP 36.4; O2SAT 97
[2022-05-25] MEDS: hyDROXYzine 25 mg Capsule 50 MG PO (18:05)
--- NOTE | 2022-05-25 18:21 | W.PM.NPUPNS ---
Subjective NPU Subjective: Patient is a 51-year-old male admitted with suicidal ideation, homicidal ideation, and auditory hallucinations. He continuously himself on milieu. He had reported feeling less agitated. He reported some improvement in sleep with less frequent awakenings at night. He reported no feelings of hopelessness or worthlessness. He reported diminished energy and reported depressed mood. Staff notes patient continued to isolate himself. He had described having periods of intense irritability but states that he was able to calm himself down. Mental Status Exam MSE Comments: This is an obese white male in hospital scrubs with limited grooming and poor eye contact.? No abnormal involuntary motor movements except for psychomotor retardation.? He appeared in mild distress and was cooperative on interview.? Speech was normal in rate and normal volume.? Mood described as allright His affect remained flat and mood incongruent. Thought process mostly linear and organized.? Thought content: Patient endorsed suicidal ideation that was fleeting, no homicidal ideation. There were no delusions reported or noted, he endorsed auditory but denied visual hallucinations.? Attention and concentration were limited and memory was mostly reliable but none were formally tested.? He is alert and oriented x3.? Insight and judgment are impaired. His impulse control is improved. . Vitals/I&O/Wt Last Vital Signs Temp 97.5 F L 05/25/22 14:00 Pulse 89 05/25/22 14:00 Resp 17 05/25/22 14:00 BP 119/87 05/25/22 14:00 Pulse Ox 97 05/25/22 14:00 O2 Del Method 05/25/22 06:00 Data NPU 05/17/22 18:00 05/17/22 18:00 A&P Assessment and plan (1) Depression with suicidal ideation: (2) Suicide attempt: (3) Alcohol dependence, in remission: (4) Drug-induced psychotic disorder: (5) Antisocial personality disorder: (6) Depressed bipolar I disorder: Plan This is a 51-year-old white male with a long history of multiple inpatient hospitalizations often with concerns for malingering who presents today reporting that he has been taking his medication but but struggling with situations where people are creating irritability and aggressive/suicidal and him. 1.? Increase Seroquel 600 mg at night with continued mood titration upwards to target hallucinations and depression. Continue Trazodone at 50mg at night. 2.? Continue every 15 minute checks for safety. 3.? Encourage individual, group and milieu therapies. 4.? Encourage sober living treatment after discharge at the highest level of care to which he is willing to commit.? 5. Concern for malingering often exist, but clearly appears to need a more stable situation to thrive Involuntary Hold Information 96 Hour Hold: 96 Hour Involuntary Admission: No Attestations NPU Medical Necessity Statement*: Inpatient hospitalization is medically necessary and the clinically appropriate intervention at this time.? We will monitor medications and make changes as indicated with likely length of stay 3-5 days. Coding Level of Care Code Acute Code for [facility] Fwd Diagnoses Depression with suicidal ideation F32.A; R45.851 Suicide attempt T14.91XA Alcohol dependence, in remission F10.21 Drug-induced psychotic disorder F19.959 Antisocial personality disorder F60.2 Depressed bipolar I disorder F31.9
[2022-05-25] MEDS: quetiapine 300 mg Tablet 600 MG PO (20:34)
[2022-05-25 20:40] VITALS: BP 139/87; PULSE 91; RESP 18; TEMP 36.7; O2SAT 98
[2022-05-26 06:00] VITALS: BP 109/69; PULSE 87; RESP 18; TEMP 36.4; O2SAT 99; BMI 37.3
[2022-05-26] MEDS: folic acid 1 mg Tablet PO (08:53)
[2022-05-26] MEDS: nicotine 4 mg lozenge MUCOUS MEM ×5 (08:53→18:07)
[2022-05-26] MEDS: multivitamin therapeutic Tablet 1 TAB PO (08:53)
[2022-05-26] MEDS: thiamine 100 mg Tablet PO (08:53)
[2022-05-26] MEDS: acetaminophen 325 mg Tablet 650 MG PO (12:40)
[2022-05-26 13:55] VITALS: BP 121/68; PULSE 103; RESP 18; TEMP 36.6; O2SAT 98
--- NOTE | 2022-05-26 14:54 | W.PM.NPUPNS ---
Subjective NPU Subjective: Patient is a 51-year-old male admitted with suicidal ideation, homicidal ideation, and auditory hallucinations. Patient had reported continually having angry thoughts. He had reported that he was having a migraine headache today. He did report that the hallucinations had been diminished and he was less distracted. He had continue to report depression but stated that he was having no thoughts about hurting himself currently. He had complained of feeling tired. He had reported no cravings for any alcohol. The patient had reported having chronic problems with socializing and stated that he preferred to be by himself. Mental Status Exam MSE Comments: This is an obese white male in hospital scrubs with limited grooming and fair eye contact.? No abnormal involuntary motor movements except for psychomotor retardation.? He appeared in mild/moderate distress and was cooperative on interview.? Speech was normal in rate and normal volume.? Mood described as okay His affect remained flat and mood incongruent. Thought process mostly linear and organized.? Thought content: Patient endorsed suicidal ideation that was fleeting, no homicidal ideation. There were no delusions reported or noted, he endorsed auditory but denied visual hallucinations.? Attention and concentration were limited and memory was mostly reliable but none were formally tested.? He is alert and oriented x3.? Insight and judgment are impaired. His impulse control is improved. . Vitals/I&O/Wt Last Vital Signs Temp 97.9 F 05/26/22 13:55 Pulse 103 H 05/26/22 13:55 Resp 18 05/26/22 13:55 BP 121/68 05/26/22 13:55 Pulse Ox 98 05/26/22 13:55 O2 Del Method 05/25/22 06:00 Weight last 48 hrs Weight 125.917 kg Weight 117.991 kg Data NPU 05/17/22 18:00 05/17/22 18:00 A&P Assessment and plan (1) Depression with suicidal ideation: (2) Suicide attempt: (3) Alcohol dependence, in remission: (4) Drug-induced psychotic disorder: (5) Antisocial personality disorder: (6) Depressed bipolar I disorder: Plan This is a 51-year-old white male with a long history of multiple inpatient hospitalizations often with concerns for malingering who presents today reporting that he has been taking his medication but but struggling with situations where people are creating irritability and aggressive/suicidal and him. 1.? Continue Seroquel 600 mg nightly with continued mood titration upwards to target hallucinations and depression. 2.? Continue every 15 minute checks for safety. 3.? Encourage individual, group and milieu therapies. 4.? Encourage sober living treatment after discharge at the highest level of care to which he is willing to commit.? 5. Concern for malingering often exist, but clearly appears to need a more stable situation to thrive Involuntary Hold Information 96 Hour Hold: 96 Hour Involuntary Admission: No Attestations NPU Medical Necessity Statement*: Inpatient hospitalization is medically necessary and the clinically appropriate intervention at this time.? We will monitor medications and make changes as indicated with likely length of stay 3-5 days. Coding Level of Care Code Acute Code for g Fwd Diagnoses Depression with suicidal ideation F32.A; R45.851 Suicide attempt T14.91XA Alcohol dependence, in remission F10.21 Drug-induced psychotic disorder F19.959 Antisocial personality disorder F60.2 Depressed bipolar I disorder F31.9
[2022-05-26 19:40] VITALS: BP 123/84; PULSE 89; RESP 18; TEMP 36.4; O2SAT 96
[2022-05-26] MEDS: quetiapine 300 mg Tablet 600 MG PO (20:11)
[2022-05-27] MEDS: calcium carbonate 500 mg Chew Tablet PO ×2 (01:31→16:54)
[2022-05-27] MEDS: nicotine 4 mg lozenge MUCOUS MEM ×6 (05:04→19:36)
[2022-05-27 06:00] VITALS: BP 123/73; PULSE 72; RESP 18; TEMP 36.4; O2SAT 98
[2022-05-27] MEDS: folic acid 1 mg Tablet PO (08:31)
[2022-05-27] MEDS: multivitamin therapeutic Tablet 1 TAB PO (08:31)
[2022-05-27] MEDS: thiamine 100 mg Tablet PO (08:32)
--- NOTE | 2022-05-27 13:36 | P.NPUPN_ITS ---
Subjective NPU Subjective: Patient is a 51-year-old male admitted with suicidal ideation, homicidal ideation, and auditory hallucinations. The patient had reported that his angry thoughts were under better control. He reported not having suicidal thoughts. He had reported occasional flashbacks and reported that his thoughts of hurting others had been diminished. He had reported improved sleep. He continued to report struggles with occasional feelings of helplessness but reports that he does wish to consider having a nursing home until he gets back on his feet. He denied any cravings for alcohol at this time. He continued to endorse social isolation stating having difficulties with being in crowds and in public places. Mental Status Exam MSE Comments: This is an obese white male in hospital scrubs with limited grooming and fair eye contact.? No abnormal involuntary motor movements except for psychomotor retardation.? He appeared in mild/moderate distress and was cooperative on interview.? Speech was normal in rate and normal volume.? Mood described as okay His affect remained flat and mood incongruent. Thought process mostly linear and organized.? Thought content: Patient endorsed suicidal ideation that was fleeting, no homicidal ideation. There were no delusions reported or noted, He endorsed auditory but denied visual hallucinations.? Attention and concentration were limited and memory was mostly reliable but none were formally tested.? He is alert and oriented x3.? Insight and judgment are impaired. His impulse control is improved. . Vitals/I&O/Wt Last Vital Signs Temp 97.6 F 05/27/22 06:00 Pulse 72 05/27/22 06:00 Resp 18 05/27/22 06:00 BP 123/73 05/27/22 06:00 Pulse Ox 98 05/27/22 06:00 O2 Del Method 05/27/22 06:00 Weight last 48 hrs Weight 125.917 kg Weight 117.991 kg Data NPU 05/17/22 18:00 05/17/22 18:00 A&P Assessment and plan (1) Depression with suicidal ideation: (2) Suicide attempt: (3) Alcohol dependence, in remission: (4) Drug-induced psychotic disorder: (5) Antisocial personality disorder: (6) Depressed bipolar I disorder: Plan This is a 51-year-old white male with a long history of multiple inpatient hospitalizations often with concerns for malingering who presents today reporting that he has been taking his medication but but struggling with situations where people are creating irritability and aggressive/suicidal and him. 1.? Continue Seroquel 600 mg nightly with continued mood titration upwards to target hallucinations and depression. 2.? Continue every 15 minute checks for safety. 3.? Encourage individual, group and milieu therapies. 4.? Encourage sober living treatment after discharge at the highest level of care to which he is willing to commit.? Involuntary Hold Information 96 Hour Hold: 96 Hour Involuntary Admission: No Attestations NPU Medical Necessity Statement*: Inpatient hospitalization is medically necessary and the clinically appropriate intervention at this time.? We will monitor medications and make changes as indicated with likely length of stay 3-5 days. Coding Level of Care Code Acute Code for g Fwd Diagnoses Depression with suicidal ideation F32.A; R45.851 Suicide attempt T14.91XA Alcohol dependence, in remission F10.21 Drug-induced psychotic disorder F19.959 Antisocial personality disorder F60.2 Depressed bipolar I disorder F31.9
[2022-05-27 14:00] VITALS: BP 123/80; PULSE 92; RESP 18; TEMP 36.7; O2SAT 97
[2022-05-27] MEDS: quetiapine 300 mg Tablet 600 MG PO (19:36)
[2022-05-27 20:25] VITALS: BP 179/80; PULSE 100; RESP 18; TEMP 36.4; O2SAT 97
[2022-05-28 06:00] VITALS: BP 137/91; PULSE 85; RESP 18; TEMP 36.9; O2SAT 95
[2022-05-28] MEDS: nicotine 4 mg lozenge MUCOUS MEM ×6 (08:33→19:32)
[2022-05-28] MEDS: folic acid 1 mg Tablet PO (08:34)
[2022-05-28] MEDS: thiamine 100 mg Tablet PO (08:34)
[2022-05-28] MEDS: multivitamin therapeutic Tablet 1 TAB PO (08:35)
[2022-05-28 14:00] VITALS: BP 129/85; PULSE 90; RESP 16; TEMP 36.9; O2SAT 98
--- NOTE | 2022-05-28 14:17 | P.NPUPN_ITS ---
Subjective NPU Subjective: Patient is a 51-year-old male admitted with suicidal ideation, homicidal ideation, and auditory hallucinations. The patient reported no side effects from his current medication. He reported having less frequent angry thoughts. He states that his suicidal thoughts had diminished. He reported some improvement in mood. He had continued to isolate himself on the milieu. He had a reported improved sleep. Patient reported struggles with concentration and reported no cravings for alcohol currently. He was agreeable to consideration for long-term help for alcohol abuse. He had reported no racing thoughts. Mental Status Exam MSE Comments: This is an obese white male in hospital scrubs with limited grooming and fair eye contact.? No abnormal involuntary motor movements except for psychomotor retardation.? He appeared in mild distress and was cooperative on interview.? Speech was normal in rate and normal volume.? Mood described as better His affect remained flat and mood incongruent. Thought process mostly linear and organized.? Thought content: Patient endorsed suicidal id eation that was fleeting, no homicidal ideation. There were no delusions reported or noted, He endorsed auditory but denied visual hallucinations.? Attention and concentration were limited and memory was mostly reliable but none were formally tested.? He is alert and oriented x3.? Insight and judgment are impaired. His impulse control is improved. Vitals/I&O/Wt Last Vital Signs Temp 98.4 F 05/28/22 14:00 Pulse 90 05/28/22 14:00 Resp 16 05/28/22 14:00 BP 129/85 05/28/22 14:00 Pulse Ox 98 05/28/22 14:00 O2 Del Method 05/28/22 14:00 Data NPU 05/17/22 18:00 05/17/22 18:00 A&P Assessment and plan (1) Depression with suicidal ideation: (2) Suicide attempt: (3) Alcohol dependence, in remission: (4) Drug-induced psychotic disorder: (5) Antisocial personality disorder: (6) Depressed bipolar I disorder: Plan This is a 51-year-old white male with a long history of multiple inpatient hospitalizations often with concerns for malingering who presents today reporting that he has been taking his medication but but struggling with situations where people are creating irritability and aggressive/suicidal and him. 1.? Continue Seroquel 600 mg nightly with continued mood titration upwards to target hallucinations and depression. 2.? Continue every 15 minute checks for safety. 3.? Encourage individual, group and milieu therapies. 4.? Encourage sober living treatment after discharge at the highest level of car e to which he is willing to commit.? Involuntary Hold Information 96 Hour Hold: 96 Hour Involuntary Admission: No Attestations NPU Medical Necessity Statement*: Inpatient hospitalization is medically necessary and the clinically appropriate intervention at this time.? We will monitor medications and make changes as indicated with likely length of stay 1-2 days. Coding Level of Care Code Acute Code for g Fwd Diagnoses Depression with suicidal ideation F32.A; R45.851 Suicide attempt T14.91XA Alcohol dependence, in remission F10.21 Drug-induced psychotic disorder F19.959 Antisocial personality disorder F60.2 Depressed bipolar I disorder F31.9
[2022-05-28] MEDS: calcium carbonate 500 mg Chew Tablet PO (17:34)
--- NOTE | 2022-05-28 18:20 | NPU.GN ---
[facility] Topic: Recreation General Mood of Group- Patient played a full game of [employer]. Patient very jovial and laughing while playing with other patients
[2022-05-28] MEDS: quetiapine 300 mg Tablet 600 MG PO (19:31)
[2022-05-28 21:09] VITALS: BP 130/90; PULSE 88; RESP 18; TEMP 36.8; O2SAT 97
[2022-05-29 06:00] VITALS: BP 108/68; PULSE 77; RESP 16; TEMP 36.4; O2SAT 96
[2022-05-29] MEDS: folic acid 1 mg Tablet PO (07:40)
[2022-05-29] MEDS: thiamine 100 mg Tablet PO (07:41)
[2022-05-29] MEDS: multivitamin therapeutic Tablet 1 TAB PO (07:41)
--- NOTE | 2022-05-29 08:07 | PC.NURSE ---
PT IN ROOM PACING FLOOR. DENIES SI AT THIS TIME. DOES REPORT HI, STATES I DON'T WANT TO KILL ANYONE BUT I AM ANGRY WITH PEOPLE AND WANT TO HURT THEM. I JUST DON'T' KNOW WHY. PT DENIES AVH AT THIS TIME. STATES HE IS FEELING BETTER SINCE HE HAS BEEN ON HIS SEROQUEL. PT REPORTS PAIN 8/10 ALL OVER BUT DECLINES ANYTHING FOR PAIN.
[2022-05-29] MEDS: nicotine 4 mg lozenge MUCOUS MEM ×7 (08:25→22:14)
[2022-05-29 14:00] VITALS: BP 118/75; PULSE 91; RESP 16; TEMP 36.6; O2SAT 97
--- NOTE | 2022-05-29 15:55 | W.PM.NPUPNS ---
Subjective NPU Subjective: Patient is a 51-year-old male admitted with suicidal ideation, homicidal ideation, and auditory hallucinations. Patient denied any thoughts of hurting himself or others. He had expressed having less angry thoughts to harm others. He reports that he had felt more motivated and stated that his sleep had been better. He reported having no suicidal thoughts currently. He had reported no cravings for alcohol at this time. Mental Status Exam MSE Comments: This is an obese white male in hospital scrubs with limited grooming and fair eye contact.? No abnormal involuntary motor movements except for mild psychomotor retardation.? He appeared in mild distress and was cooperative on interview.? Speech was normal in rate and normal volume.? Mood described as better His affect was less restricted. Thought process mostly linear and organized.? Thought content: Patient endorsed no suicidal ideation no homicidal ideation. There were no delusions reported or noted, He denied auditory or visual hallucinations.? Attention and concentration were limited and memory was mostly reliable but none were formally tested.? He is alert and oriented x3.? Insight and judgment are impaired. His impulse control is improved. Vitals/I&O/Wt Last Vital Signs Temp 97.9 F 05/29/22 14:00 Pulse 91 05/29/22 14:00 Resp 16 05/29/22 14:00 BP 118/75 05/29/22 14:00 Pulse Ox 97 05/29/22 14:00 O2 Del Method 05/29/22 14:00 Data NPU 05/17/22 18:00 05/17/22 18:00 A&P Assessment and plan (1) Depression with suicidal ideation: (2) Suicide attempt: (3) Alcohol dependence, in remission: (4) Drug-induced psychotic disorder: (5) Antisocial personality disorder: (6) Depressed bipolar I disorder: Plan This is a 51-year-old white male with a long history of multiple inpatient hospitalizations often with concerns for malingering who presents today reporting that he has been taking his medication but but struggling with situations where people are creating irritability and aggressive/suicidal and him. 1.? Continue Seroquel 600 mg nightly with continued mood titration upwards to target hallucinations and depression. 2.? Continue every 15 minute checks for safety. 3.? Encourage individual, group and milieu therapies. 4.? Encourage sober living treatment after discharge at the highest level of care to which he is willing to commit.? Involuntary Hold Information 96 Hour Hold: 96 Hour Involuntary Admission: No Attestations NPU Medical Necessity Statement*: Inpatient hospitalization is medically necessary and the clinically appropriate intervention at this time.? We will monitor medications and make changes as indicated with likely length of stay 1 day with d/c tommorow. Coding Level of Care Code Acute Code for Chg Fwd Diagnoses Depression with suicidal ideation F32.A; R45.851 Suicide attempt T14.91XA Alcohol dependence, in remission F10.21 Drug-induced psychotic disorder F19.959 Antisocial personality disorder F60.2 Depressed bipolar I disorder F31.9
[2022-05-29] MEDS: quetiapine 300 mg Tablet 600 MG PO (20:19)
[2022-05-29] MEDS: acetaminophen 325 mg Tablet 650 MG PO (20:20)
[2022-05-29 21:05] VITALS: BP 122/81; PULSE 101; RESP 16; TEMP 36.7; O2SAT 96
--- NOTE | 2022-05-30 04:53 | PC.NURSE ---
at 2019 Tylenol given per MD orders, left leg pain.
[2022-05-30 06:00] VITALS: BP 113/76; PULSE 79; RESP 16; TEMP 36.4; O2SAT 96
[2022-05-30] MEDS: thiamine 100 mg Tablet PO (08:35)
[2022-05-30] MEDS: multivitamin therapeutic Tablet 1 TAB PO (08:35)
[2022-05-30] MEDS: folic acid 1 mg Tablet PO (08:35)
[2022-05-30] MEDS: nicotine 4 mg lozenge MUCOUS MEM ×3 (08:35→12:17)
[2022-05-30 09:00] VITALS: BP 113/76; PULSE 79; RESP 16; TEMP 36.4; O2SAT 96
--- NOTE | 2022-05-30 09:28 | DCPLANNER ---
IMM printed and given to pt and right explained. A copy was placed in pt's file.
--- NOTE | 2022-05-30 18:01 | P.NPUDS_ITS ---
Diagnoses at Discharge Discharge Diagnosis (1) Depression with suicidal ideation: Status: Resolved (2) Suicide attempt: Status: Acute (3) Alcohol dependence, in remission: Status: Acute (4) Drug-induced psychotic disorder: Status: Inactive (5) Antisocial personality disorder: Status: Chronic (6) Depressed bipolar I disorder: Status: Resolved Permanent problem details: Patient does not name and get his prescriptions filled when discharged. I am discontinuing all his meds and referring him to outpatient follow-up. Reason for Visit Reason for Visit: SI,MHE Brief History: History of Present Illness Emil Castro is a 51 year old male who presented to the emergency part with the following report: Chief Complaint: Psychiatric Symptoms Stated Complaint: SI,MHE Time Seen by Provider: 05/17/22 17:36 Source: patient Mode of arrival: ambulatory Limitations: no limitations History of Present Illness:?? Patient is a 51-year-old male who is well-known to the emergency department here yet again for complaints of suicidal ideations, homicidal ideations, auditory hallucinations, and aggression/anger outbursts.? Patient has had multiple NPU admissions over the past few months.? Patient states he never has followed up with [facility] or a primary care provider after his discharges.? Patient states he is taking his prescribed medications.? He continues to drink alcohol.? States he has a plan to hang himself with a rope.? He states he feels homicidal towards men in general and sometimes wants to slit their throats. MD complaint: suicidal ideation and other (anger/agression, HI, auditory hallucinations) Duration: constant History of same: Yes Relieving factors: none Exacerbating factors: none Context: recent alcohol abuse Associated psychiatric symptoms: depression, suicidal ideation, homicidal ideation and auditory hallucinations Associated symptoms: Reports auditory hallucinations, depression, homicidal ideation and suicidal ideation; Deny visual hallucinations Treatments prior to arrival: none If self harm: admits thoughts of self harm and has plan. He was admitted to the Neuropsych Unit for definitive treatment of issues.? He presents like he has recently with significant irritability reporting concerned he is going to hurt someone. ? He reported that his medication based on his discharge functioning that seems unlikely.? However he continues significant difficulties with his housing and managing resources.? The fairly distant story reporting openness to continue medication but not expressing any clarity as what he was to do next.? We discussed working with treatment team on Friday to start to look more viable and sustainable housing and resources, which she agrees with but not emphatically.? We agreed to restart his medication and see how he does with regular administration and probably consider increasing his bedtime Seroquel and he understood agreed to proceed as is documented in this note Per his 05/08/2022 [facility] inpatient psychiatric discharge summary: SI? Brief History: History of Present Illness Emil Castro is a 51 year old male who presented to the emergency department with the following report: Chief Complaint: Psychiatric Symptoms Stated Complaint: SI Time Seen by Provider: 05/01/22 19:21 Source: patient Mode of arrival: ambulatory Limitations: no limitations History of Present Illness:?? 51-year-old male states he has a history of depression along with bipolar he had a suicide attempt impassable he states over the last 5 to 6 days he been having increased irritability along with suicidal thoughts he states he had thoughts of hanging himself from a tree.? He states that he realized that he needed to get help or reason to harm himself he denies any worsening proving factors he is currently not on any meds. Associated symptoms: Reports depression and suicidal ideation He was admitted to the neuropsychiatric unit for definitive treatment of those issues.? He presents today reporting that he had been spending most of his time after his last discharge in [place].? He reports that he has been working and doing fairly well.? He reports initially he was taking his medication but at some point he stopped taking it and he could not give any reasonable explanation for why he did that or why he has a habit of doing that.? He reports that he came back to [place] for some time off and to do some camping.? He reports that he started having great irritability with people around him started having some really negative thoughts about reacting to his irritability.? He thought then that it was best to come to the hospital before he did something that he regretted.? We discussed the risk benefits and alternatives of resuming the medications he had previously done well on and he understood and agreed to proceed as is documented in this note.? An excerpt of his last discharge summary is included below for context as he was not interested in details from a history standpoint. Per his 08/27/2021 [facility] inpatient psychiatric discharge summary: Discharge Diagnosis (1) Depression with suicidal ideation: ? ? ? Status: Resolved (2) Suicide attempt: ? ? ? Status: Acute (3) Alcohol dependence, in remission: ? ? ? Status: Acute (4) Drug-induced psychotic disorder: ? ? ? Status: Acute (5) Antisocial personality disorder: ? ? ? Status: Chronic (6) Depressed bipolar I disorder: ? ? ? Status: Resolved ? ? ? Permanent problem details: Patient does not name and get his prescriptions filled when discharged.? I am discontinuing all his meds and referring him to outpatient follow-up. Reason for Visit Reason for Visit:?? SI? Brief History: History of Present Illness Emil Castro is a 51 year old male who presented to the emergency department the following report: Chief complaint: Psychiatric Symptoms Stated complaint: SI Time Seen by Provider: 08/23/21 19:44 History of Present Illness: HPI: [51]yo patient w/ hx of depression presenting for suicidal ideation with plan.? Patient plans to hang himself and decided against the last minute and came in to the ED. On arrival, the patient is AAOx3 and cooperative with my evaluation. No focal complaints of chest pain, shortness of breath, palpitations, N/V, focal GI/ complaints. Currently denies HI. No complaints of hallucinations. Onset: acute Duration: ongoing Location: home Severity: severe Associated symptoms: Deny chest pain, dyspnea, nausea, rash, palpitations or vomiting He was admitted to the neuropsychiatric unit for definitive treatment of those issues.? Patient is well-known to the unit from multiple past inpatient stays the last of which was in June.? He had previously been here much more often but had been having a modicum of success followed by some recent challenges again.? He reports that after his last stay he had gone to [place] and was doing fairly well and told someone on convoluted story about how he was coming back here to get his mail arranged and that he decided once he was here that he was going to go ahead and say and he went to [facility] and they were lining up a place for him to stay in the next 2 or 3 days.? But then frustrations and bad choices get the best of him which led him to presenting to the hospital yesterday.? He reports another problem that led to him coming his way was that he has he will get his medication for about the last month or so he would not and could not explain whether this was related to him not following through on something to get refills or some other concern.? Review of the chart suggested maybe he was given refills in the left in beginning of June.? Unclear why that occurred.? He was indicated to moving forward, getting his own place to [facility] getting back on medication and trying to remain in the right direction.? Documentation shows that he has been doing better when he comes to his addictive behavior however he reports sobriety extending back more than 6 months and I am unconvinced that that is accurate though.? We discussed the risk benefits alternatives of getting his medications restarted and trying to assist him in stability on that front and he understood agreed proceed as is documented in this note.? An excerpt of his June stay is included below for context. Hospital course 05/08/22 : He slowly acclimated to the individual, group and milieu therapies provided.? He presented reporting irritability being off of medication.? Seroquel was started at bedtime and 2 daytime doses were added.? He was titrated up to 50 mg twice a day and 100 milligrams at night.? He continues to have challenging living suc cesses at home is becoming factor.? He dorsoplantar this maneuver he has had some success.? With his medications restarted and he did have significant improvement.? He was able to contract for safety outside of the hospital prior to discharge.? During the hospitalization, patient had routine laboratory studies which were within normal limits except for few outliers.? Additionally there was a general medical evaluation which was also within normal limits and revealed no new acute processes. Discharge Summary: At the time of discharge, lethality was denied and psychosis was resolving.? Mood and anxiety were well managed.? Patient endorsed a plan to avoid all drugs of abuse and follow-up with the aftercare recommendations of the treatment team.? Patient was evaluated and deemed to be absent credible lethality, and was voluntary and denied wanting any continued inpatient hospitalization, so he was discharged. Hospital Course Hospital Course Discharge Summary: During the hospitalization, patient had routine laboratory studies which were within normal limits except for few outliers. Additionally there was a general medical evaluation which was also within normal limits and revealed no new acute processes. At the time of discharge, lethality was denied and psychosis was resolving. Mood and anxiety were well managed. Patient endorsed a plan to avoid all drugs of abuse and follow-up with the aftercare recommendations of the treatment team. Patient was evaluated and deemed to be absent credible lethality, and had achieved the maximum benefit from an inpatient hospitalization, so was discharged. Involuntary Hold Information 96 Hour Hold: 96 Hour Involuntary Admission: No Mental Status Exam MSE Comments: This is an obese white male in hospital scrubs with limited grooming and fair eye contact.? No abnormal involuntary motor movements except for mild psychomotor retardation.? He appeared in no acute distress and was cooperative on interview.? Speech was normal in rate and normal volume.? Mood described as better His affect was brighter. Thought process mostly linear and organized.? Thought content: Patient endorsed no suicidal ideation no homicidal ideation. There were no delusions reported or noted, He denied auditory or visual hallucinations.? Attention and concentration were improved an d memory was mostly reliable but none were formally tested.? He is alert and oriented x3.? Insight and judgment are better on discharge. His impulse control is improved. Discharge Data Studies Completed and Pending: Laboratory Results WBC 11.7 10^3/uL (4.0 -10.0) H 05/17/22 18:00 RBC 5.01 10^6/uL (4.1 -5.3) 05/17/22 18:00 Hgb 16.1 g/dL (11.7-1 6.6) 05/17/22 18:00 Hct 46.8 % (42.0-52.0 ) 05/17/22 18:00 MCV 93.4 fl (80-94) 05/17/22 18:00 MCH 32.1 pg (28.0-34. 0) 05/17/22 18:00 MCHC 34.4 g/dL (30.0-3 6.0) 05/17/22 18:00 RDW 12.8 % (12.1-15.1 ) 05/17/22 18:00 Plt Count 224 10^3/cmm (130 -400) 05/17/22 18:00 MPV 10.0 fL (7.4-10.4 ) 05/17/22 18:00 Neut % (Auto) 65.4 % 05/17/22 18:00 Lymph % (Auto) 20.6 % 05/17/22 18:00 [place] % (Auto) 9.8 % 05/17/22 18:00 Eos % (Auto) 2.7 % 05/17/22 18:00 Baso % (Auto) 0.9 % 05/17/22 18:00 Neut # (Auto) 7.64 10^3/uL (1.8 -7.7) 05/17/22 18:00 Lymph # (Auto) 2.4 10^3/uL (0.8- 4.8) 05/17/22 18:00 [place] # (Auto) 1.1 10^3/uL (0.2- 0.9) H 05/17/22 18:00 Eos # (Auto) 0.3 10^3/uL (0.0- 0.8) 05/17/22 18:00 Baso # (Auto) 0.1 10^3/uL (0.0- 0.1) 05/17/22 18:00 Nucleated RBC % (a uto) 0 % 05/17/22 18:00 Nucleated RBCs # 0.0 /100WBC 05/17/22 18:00 Sodium 137 mmol/L (136-1 45) 05/17/22 18:00 Potassium 3.4 mmol/L (3.5-5 .1) L 05/17/22 18:00 Chloride 100 mmol/L (98-10 7) 05/17/22 18:00 Carbon Dioxide 23 mmol/L (22-29) 05/17/22 18:00 Anion Gap 17.4 (5-19) 05/17/22 18:00 BUN 10 mg/dL (6-20) 05/17/22 18:00 Creatinine 0.8 mg/dL (0.7-1. 2) 05/17/22 18:00 GFR Calculation 101.5 mL/min (90- 130) 05/17/22 18:00 Glucose 100 mg/dL (65-115 ) 05/17/22 18:00 Calculated Osmolal ity 283 mOsm/kg (285- 295) L 05/17/22 18:00 Calcium 9.5 mg/dL (8.5-10 .5) 05/17/22 18:00 Total Bilirubin 0.4 mg/dL (0.15-1 .2) 05/17/22 18:00 AST 30 U/L (0-40) 05/17/22 18:00 ALT 28 U/L (0-41) 05/17/22 18:00 Alkaline Phosphata se 82 U/L (40-130) 05/17/22 18:00 Total Protein 7.5 g/dL (6.6-8.7 ) 05/17/22 18:00 Albumin 4.8 g/dL (3.5-5.2 ) 05/17/22 18:00 Globulin 2.7 g/dL (1.3-4.6 ) 05/17/22 18:00 Salicylates < 0.3 mg/dL (3-10 ) L 05/17/22 18:00 Urine Opiates Scre en Negative ng/mL (N egative) 05/17/22 17:30 Acetaminophen < 5.0 ug/mL (10-3 0) L 05/17/22 18:00 Ur Barbiturates Sc reen Negative ng/mL (N egative) 05/17/22 17:30 Ur Phencyclidine S crn Negative ng/mL (N egative) 05/17/22 17:30 Ur Amphetamines Sc reen Negative ng/mL (N egative) 05/17/22 17:30 U Benzodiazepines Scrn Negative ng/mL (N egative) 05/17/22 17:30 Urine Cocaine Scre en Negative ng/mL (N egative) 05/17/22 17:30 U Marijuana (THC) Screen Negative ng/mL (N egative) 05/17/22 17:30 Ethyl Alcohol 57 mg/dL (0-10) H 05/17/22 18:00 Vitals: Last Vital Signs Temp 97.5 F L 05/30/22 09:00 Pulse 79 05/30/22 09:00 Resp 16 05/30/22 09:00 BP 113/76 05/30/22 09:00 Pulse Ox 96 05/30/22 09:00 O2 Del Method 05/30/22 06:00 Discharge Plan Discharge Patient Disposition: Home Condition: Stable Prescriptions: New quetiapine 300 mg Tablet 600 mg PO BEDTIME 30 Days Qty: 60 1RF Discontinued quetiapine [Seroquel] 100 mg tablet 100 mg PO BEDTIME quetiapine 25 mg Tablet 50 mg PO BID 30 Days Qty: 120 1RF trazodone 100 mg Tablet 100 mg PO BEDTIME 30 Days Qty: 30 1RF Discharge Orders: Discharge Order (Routine); Ordered 05/30/22 Ordered By: Arash Crowley Referrals: [facility] [Other] - 05/30/22 [facility] [Other] - 06/12/22 10:15 am (Initial appoinmtent with Johnathan Abdalla) [facility] - Dr. Cunha [Other] - 07/03/22 2:00 pm (Appointment with Psychiatrist Dr. Cunha) Discharge Diet: Advance as tolerated Discharge Activity: Resume usual activity Patient Instructions: Quetiapine (By mouth), Suicide Prevention (GEN), Opioid Safety Discharge Attestations NPU Time Spent in Discharge Care*: less than 30 min Specific Discharge Activities: Specific discharge activities: educating patient, educating and/or supporting family/caregiver, documenting/other paperwork and evaluating patient/reviewing data Status at Discharge: Cognitive status at discharge: cognitively intact , Behavioral status at discharge: cooperative , Coding Level of Care Code [facility] DC note Diagnoses Depression with suicidal ideation F32.A; R45.851 Suicide attempt T14.91XA Alcohol dependence, in remission F10.21 Drug-induced psychotic disorder F19.959 Antisocial personality disorder F60.2 Depressed bipolar I disorder F31.9
== END 2022-05-30 13:12 | disposition home or self-care (01) | DRG 885 ==
LOC: ER 18:46 → NP 19:07
PROVIDERS: Admitting Provider Psychiatry & Neurology Psychiatry; Emergency Provider Physician Assistant; PCP Psychiatry & Neurology Psychiatry; Visit Provider Psychiatry & Neurology Psychiatry
DX: F31.9 Bipolar disorder, unspecified (principal); R45.851 Suicidal ideations; R44.0 Auditory hallucinations; R45.850 Homicidal ideations; F10.20 Alcohol dependence, uncomplicated; Y90.2 Blood alcohol level of 40-59 mg/100 ml; F17.200 Nicotine dependence, unspecified, uncomplicated; F60.2 Antisocial personality disorder; Z76.5 Malingerer [conscious simulation]; G43.909 Migraine, unspecified, not intractable, without status migrainosus; Z91.14 Patient's other noncompliance with medication regimen
CPT/HCPCS: 36415; 80053; 80306; 80307; 85025; 97150; 97165; 99238; 99285; Q0162

== ENCOUNTER 2022-10-02 10:56 | Inpatient (IN) | payer MEDICARE, MEDICAID, SELFPAY ==
[2022-10-02 11:04] VITALS: BP 137/79; PULSE 88; RESP 20; TEMP 36.6; O2SAT 97
--- NOTE | 2022-10-02 11:50 | ED.C_ITS ---
HPI - Psych General: Chief Complaint: Psychiatric Symptoms Stated Complaint: SI Time Seen by Provider: 10/02/22 11:11 Source: patient Mode of arrival: ambulatory History of Present Illness: 52-year-old male presents emergency room with complaint of suicidal ideations racing thoughts some hallucinations. Patient has a history of alcoholism as well as bipolar disorder. He states he stopped taking all of his medicines 5 or 6 months ago however he was hospitalized in early May of this year. He was discharged on May 08 and then readmitted on May 18. He did admit to drinking this morning he is still mildly agitated but not confrontational easily redirected. He cannot give me a specific reason as to why he stopped his medications. He did not particularly identify side effects he does states he did not get them refilled MD complaint: suicidal ideation Onset (ago): day(s) Duration: changing over time and getting worse History of same: Yes Relieving factors: none Exacerbating factors: alcohol Context: recent alcohol abuse Associated psychiatric symptoms: none Associated symptoms: Deny auditory hallucinations, visual hallucinations, delusions, depression, homicidal ideation, suicidal ideation or racing thoughts Treatments prior to arrival: none If self harm: admits thoughts of self harm and has plan Review of Systems Const: Denies: fever(s), chills, body aches, change in appetite, fatigue or malaise ENMT: Denies: throat pain, ear or mastoid pain, nasal discharge or nasal congestion Card: Denies: chest pain, edema, dyspnea on exertion or orthopnea Resp: Denies: dyspnea, productive cough or non-productive cough GI: Denies: abdominal pain, nausea, vomiting, hematemesis, coffee ground emesis, diarrhea, constipation, bloating, hematochezia or melena : Denies: flank pain, dysuria, urinary frequency or urinary urgency Skin/Breast: Denies: rash or pruritus Psych: Denies: depression, visual hallucinations, auditory hallucinations, suicidal ideation or homicidal ideation PFSH ED PFSH: Medical History Alcohol dependence, in remission Antisocial personality disorder Bipolar 2 disorder Chronic alcohol abuse Drug-induced psychotic disorder Malingering Social History Smoking and tobacco status: current every day smoker Physical Exam Const: GENERAL APPEARANCE: cooperative and comfortable ORIENTATION/CONSC IOUSNESS: Yes awake, Yes oriented to person, Yes oriented to place and Yes oriented to time HENMT: COMMON NORMALS: normocephalic, atraumatic and hearing grossly normal bilaterally HEAD & SCALP: normocephalic and atraumatic Resp: COMMON NORMALS: normal respiratory effort, No retractions, No use of accessory muscles and clear to auscultation bilaterally AUSCULTATION: clear to auscultation bilaterally Cardio: COMMON NORMALS: regular rate, regular rhythm and No murmurs present (Cardio) RATE: regular rate RHYTHM: regular rhythm Extremity: COMMON NORMALS: normal to inspection, capillary refill normal, no clubbing, cyanosis or edema, no calf tenderness and no pedal edema Neuro: SENSORIUM/ORIENTATION: Yes oriented to person, Yes oriented to place and Yes oriented to time Psych: THOUGHT CONTENT: No delusions Skin: COMMON NORMALS: no rashes or lesions noted GENERAL SKIN EXAM: no rashes or lesions noted Course Vital Signs: Vital signs: Vital Signs Temperature 98.0 F 10/04/22 20:10 Pulse Rate 69 10/04/22 20:10 Respiratory Rate 18 10/04/22 20:10 Blood Pressure 105/66 10/04/22 20:10 Pulse Oximetry 97 10/04/22 20:10 Oxygen Delivery Me thod Room Air 10/04/22 20:10 MDM - Psych Medical Decision Making Suicidal ideation with anxiety has been off his medicines for some time is also having some hallucinations hallucinations. Patient states been drinking 20 beers alcohol was undetectable discussed Dr. Bond orders written. Medical Records I reviewed the patient's medical records. Lab Data I reviewed the patient's lab results. 10/02/22 11:37 10/02/22 11:37 Laboratory Results WBC 11.3 10^3/uL (4.0-10.0) H 10/02/22 11:37 RBC 4.95 10^6/uL (4.1-5.3) 10/02/22 11:37 Hgb 16.3 g/dL (11.7-16.6) 10/02/22 11:37 Hct 48.1 % (42.0-52.0) 10/02/22 11:37 MCV 97.2 fl (80-94) H 10/02/22 11:37 MCH 32.9 pg (28.0-34.0) 10/02/22 11:37 MCHC 33.9 g/dL (30.0-36.0) 10/02/22 11:37 RDW 13.9 % (12.1-15.1) 10/02/22 11:37 Plt Count 202 10^3/cmm (130-400) 10/02/22 11:37 MPV 10.1 fL (7.4-10.4) 10/02/22 11:37 Neut % (Auto) 68.5 % 10/02/22 11:37 Lymph % (Auto) 18.1 % 10/02/22 11:37 [place] % (Auto) 9.4 % 10/02/22 11:37 Eos % (Auto) 2.4 % 10/02/22 11:37 Baso % (Auto) 0.9 % 10/02/22 11:37 Neut # (Auto) 7.74 10^3/uL (1.8-7.7) H 10/02/22 11:37 Lymph # (Auto) 2.1 10^3/uL (0.8-4.8) 10/02/22 11:37 [place] # (Auto) 1.1 10^3/uL (0.2-0.9) H 10/02/22 11:37 Eos # (Auto) 0.3 10^3/uL (0.0-0.8) 10/02/22 11:37 Baso # (Auto) 0.1 10^3/uL (0.0-0.1) 10/02/22 11:37 Nucleated RBC % (auto) 0 % 10/02/22 11:37 Nucleated RBCs # 0.0 /100WBC 10/02/22 11:37 Sodium 140 mmol/L (136-145) 10/02/22 11:37 Potassium 4.5 mmol/L (3.5-5.1) 10/02/22 11:37 Chloride 103 mmol/L (98-107) 10/02/22 11:37 Carbon Dioxide 25 mmol/L (22-29) 10/02/22 11:37 Anion Gap 16.5 (5-19) 10/02/22 11:37 BUN 11 mg/dL (6-20) 10/02/22 11:37 Creatinine 0.8 mg/dL (0.7-1.2) 10/02/22 11:37 GFR Calculation 101.1 mL/min (90-130) 10/02/22 11:37 Glucose 85 mg/dL (65-115) 10/02/22 11:37 Calculated Osmolality 289 mOsm/kg (285-295) 10/02/22 11:37 Calcium 9.1 mg/dL (8.5-10.5) 10/02/22 11:37 Total Bilirubin 0.8 mg/dL (0.15-1.2) 10/02/22 11:37 AST 36 U/L (0-40) 10/02/22 11:37 ALT 32 U/L (0-41) 10/02/22 11:37 Alkaline Phosphatase 72 U/L (40-130) 10/02/22 11:37 Total Protein 6.9 g/dL (6.6-8.7) 10/02/22 11:37 Albumin 4.2 g/dL (3.5-5.2) 10/02/22 11:37 Globulin 2.7 g/dL (1.3-4.6) 10/02/22 11:37 Urine Color Yellow (Yellow) 10/02/22 12:30 Urine Appearance Clear (CLEAR) 10/02/22 12:30 Urine pH 8 (5-7) H 10/02/22 12:30 Ur Specific [place] 1.010 (1.005-1.030) 10/02/22 12:30 Urine Protein Neg (Negative) 10/02/22 12:30 Urine Glucose (UA) Norm (Normal) 10/02/22 12:30 Urine Ketones Negative (Negative) 10/02/22 12:30 Urine Blood Neg (Negative) 10/02/22 12:30 Urine Nitrate Negative (Negative) 10/02/22 12:30 Urine Bilirubin Neg (Negative) 10/02/22 12:30 Prot Sulfosalicylic Acd Negative (Negative) 10/02/22 12:30 Urine Urobilinogen Norm mg/dL (Negative) 10/02/22 12:30 Ur Leukocyte Esterase Negative (Negative) 10/02/22 12:30 Salicylates 0.5 mg/dL (3-10) L 10/02/22 11:37 Urine Opiates Screen Negative ng/mL (Negative) 10/02/22 12:30 Acetaminophen < 5.0 ug/mL (10-30) L 10/02/22 11:37 Ur Barbiturates Screen Negative ng/mL (Negative) 10/02/22 12:30 Ur Phencyclidine Scrn Negative ng/mL (Negative) 10/02/22 12:30 Ur Amphetamines Screen Negative ng/mL (Negative) 10/02/22 12:30 U Benzodiazepines Scrn Negative ng/mL (Negative) 10/02/22 12:30 Urine Cocaine Screen Negative ng/mL (Negative) 10/02/22 12:30 U Marijuana (THC) Screen Negative ng/mL (Negative) 10/02/22 12:30 Ethyl Alcohol < 10 mg/dL (0-10) 10/02/22 11:37 Discharge Plan Discharge Patient Disposition: Admitted As Inpatient Admit Provider: Sam Bond Clinical Impression: Suicidal ideation, Alcohol dependence, in remission, Bipolar 2 disorder Condition: Stable Coding Level of Care Code ED Assistant Manager for [facility] Long
[2022-10-02 12:24] LABS: Basophils # 0.1 10^3/uL (0.0-0.1); Basophils % 0.9 %; Eosinophils # 0.3 10^3/uL (0.0-0.8); Eosinophils % 2.4 %; Hematocrit 48.1 % (42.0-52.0); Hemoglobin 16.3 g/dL (11.7-16.6); Lymphocytes # 2.1 10^3/uL (0.8-4.8); Lymphocytes % 18.1 %; Mean Corpuscular HGB Conc 33.9 g/dL (30.0-36.0); Mean Corpuscular Hemoglobin 32.9 pg (28.0-34.0); Mean Corpuscular Volume 97.2 fl (80-94); Mean Platelet Volume 10.1 fL (7.4-10.4); Monocytes # 1.1 10^3/uL (0.2-0.9); Monocytes % 9.4 %; Neutrophils # 7.74 10^3/uL (1.8-7.7); Neutrophils % 68.5 %; Nucleated Red Blood Cells % 0 %; Platelet Count 202 10^3/cmm (130-400); Red Blood Count 4.95 10^6/uL (4.1-5.3); Red Cell Distribution Width 13.9 % (12.1-15.1); White Blood Count 11.3 10^3/uL (4.0-10.0)
[2022-10-02 12:35] LABS: Acetaminophen < 5.0 ug/mL (10-30); Alanine Aminotransferase 32 U/L (0-41); Albumin Level 4.2 g/dL (3.5-5.2); Alcohol Level < 10 mg/dL (0-10); Alkaline Phosphatase 72 U/L (40-130); Aspartate Amino Transferase 36 U/L (0-40); Blood Urea Nitrogen 11 mg/dL (6-20); Calcium 9.1 mg/dL (8.5-10.5); Carbon Dioxide 25 mmol/L (22-29); Chloride 103 mmol/L (98-107); Globulin 2.7 g/dL (1.3-4.6); Glomerular Filtration Rate 101.1 mL/min (90-130); Glucose 85 mg/dL (65-115); Osmolality Calculated 289 mOsm/kg (285-295); Salicylate 0.5 mg/dL (3-10); Sodium 140 mmol/L (136-145); Total Bilirubin 0.8 mg/dL (0.15-1.2); Total Protein 6.9 g/dL (6.6-8.7)
[2022-10-02 12:36] LABS: Anion Gap 16.5 (5-19); Potassium 4.5 mmol/L (3.5-5.1)
[2022-10-02 12:53] LABS: Add Urine Microscopic? NO; Charge for UA Resulting for Rev
[2022-10-02 13:04] LABS: Bilirubin Urine Neg (Negative); Blood Urine Neg (Negative); Glucose Urine UA Norm (Normal); Ketones Urine Negative (Negative); Leukocyte Esterase Urine Negative (Negative); Nitrate Urine Negative (Negative); Protein Urine Neg (Negative); Sulfosalicylic Acid Urine Negative (Negative); Urine Appearance Clear (CLEAR); Urine Color Yellow (Yellow); Urobilinogen Urine Norm (Negative); pH Urine 8 (5-7)
[2022-10-02] MEDS: quetiapine 25 mg Tablet 50 MG PO (16:57)
[2022-10-02 17:52] VITALS: BP 130/79; PULSE 72; RESP 15; O2SAT 99
[2022-10-02 17:58] VITALS: BP 143/87; PULSE 75; RESP 18; TEMP 36.7; O2SAT 97
--- NOTE | 2022-10-02 18:03 | PC.NURSE ---
PT ARRIVED TO UNIT VIA WHEELCHAIR ER STAFF AND SECURITY. PT APPEARED TO BE CALM.
--- NOTE | 2022-10-02 18:29 | PC.NURSE ---
Patient admitted from ED. Came in voluntary reporting suicidal ideations for the last 5 days. Patient was discharged in May of this year and has not taken his meds in over 4 months. Patient states he has thoughts but has never attempted suicide. Patient more concerned about getting food. UDS had not not been reported in ED, BAL negative
[2022-10-02 20:22] VITALS: BP 104/54; PULSE 84; RESP 20; TEMP 36.7; O2SAT 97
[2022-10-03 06:00] VITALS: BP 112/80; PULSE 70; RESP 15; O2SAT 98
--- NOTE | 2022-10-03 11:20 | W.PM.NPUH&PS ---
Providers/Chief Complaint Admitting Physician: Sam Bond MD Chief Complaint: SI HPI NPU History of Present Illness Emil Castro is a 52 year old male who presented to the emergency department with the following report: Chief Complaint: Psychiatric Symptoms Stated Complaint: SI Time Seen by Provider: 10/02/22 11:11 Source: patient Mode of arrival: ambulatory History of Present Illness: 52-year-old male presents emergency room with complaint of suicidal ideations racing thoughts some hallucinations. Patient has a history of alcoholism as well as bipolar disorder. He states he stopped taking all of his medicines 5 or 6 months ago however he was hospitalized in early May of this year. He was discharged on May 08 and then readmitted on May 18. He did admit to drinking this morning he is still mildly agitated but not confrontational easily redirected. He cannot give me a specific reason as to why he stopped his medications. He did not particularly identify side effects he does states he did not get them refilled complaint: suicidal ideation Onset (ago): day(s) Duration: changing over time and getting worse History of same: Yes Relieving factors: none Exacerbating factors: alcohol Context: recent alcohol abuse Associated psychiatric symptoms: none Associated symptoms: Deny auditory hallucinations, visual hallucinations, delusions, depression, homicidal ideation, suicidal ideation or racing thoughts Treatments prior to arrival: none If self harm: admits thoughts of self harm and has plan. He was admitted to the neuropsychiatric unit for definitive treatment of those issues. Patient presents today much like he is presented recently. UDS was unremarkable with no noted active drug use. This is in jackson contrast to his presentations 2+ years ago such that he was very agitated by the question about addiction. We discussed the fact that this is part of our normal screening questions. Which did seem to settle help. He presented quite agitated and not very open to questioning endorsing that this irritability is the reason that he came to the hospital. Reporting that he is finding himself to be quite easily agitated. He reports that after his May hospitalization he discontinued the medication. He reports that he went and got a job but then all that fell apart. We discussed the issue with the medication and why he discontinued it and he reports that the Seroquel which previously was a stable and standard medication in his regimen made him too tired and unable to function. He reported an openness to a trial of a new medication and we discussed the risks, benefits and alternatives of starting Abilify 10 mg p.o. daily and he understood and agreed to proceed as is documented in this note. Otherwise he reported being homeless and having no real options and needing something to help with his agitation. An excerpt of his May 2022 hospitalization is included below for historical context. Per his 05/30/2022 [facility] inpatient psychiatric discharge summary: Discharge Diagnosis (1) Depression with suicidal ideation: Status: Resolved (2) Suicide attempt: Status: Acute (3) Alcohol dependence, in remission: Status: Acute (4) Drug-induced psychotic disorder: Status: Inactive (5) Antisocial personality disorder: Status: Chronic (6) Depressed bipolar I disorder: Status: Resolved Permanent problem details: Patient does not name and get his prescriptions filled when discharged. I am discontinuing all his meds and referring him to outpatient follow-up. Reason for Visit Reason for Visit: SI,MHE Brief History: History of Present Illness Emil Castro is a 51 year old male who presented to the emergency part with the following report: Chief Complaint: Psychiatric Symptoms Stated Complaint: SI,MHE Time Seen by Provider: 05/17/22 17:36 Source: patient Mode of arrival: ambulatory Limitations: no limitations History of Present Illness: Patient is a 51-year-old male who is well-known to the emergency department here yet again for complaints of suicidal ideations, homicidal ideations, auditory hallucinations, and aggression/anger outbursts. Patient has had multiple NPU admissions over the past few months. Patient states he never has followed up with [facility] or a primary care provider after his discharges. Patient states he is taking his prescribed medications. He continues to drink alcohol. States he has a plan to hang himself with a rope. He states he feels homicidal towards men in general and sometimes wants to slit their throats. MD complaint: suicidal ideation and other (anger/agression, HI, auditory hallucinations) Duration: constant History of same: Yes Relieving factors: none Exacerbating factors: none Context: recent alcohol abuse Associated psychiatric symptoms: depression, suicidal ideation, homicidal ideation and auditory hallucinations Associated symptoms: Reports auditory hallucinations, depression, homicidal ideation and suicidal ideation; Deny visual hallucinations Treatments prior to arrival: none If self harm: admits thoughts of self harm and has plan. He was admitted to the Neuropsych Unit for definitive treatment of issues. He presents like he has recently with significant irritability reporting concerned he is going to hurt someone. He reported that his medication based on his discharge functioning that seems unlikely. However he continues significant difficulties with his housing and managing resources. The fairly distant story reporting openness to continue medication but not expressing any clarity as what he was to do next. We discussed working with treatment team on Friday to start to look more viable and sustainable housing and resources, which she agrees with but not emphatically. We agreed to restart his medication and see how he does with regular administration and probably consider increasing his bedtime Seroquel and he understood agreed to proceed as is documented in this note Per his 05/08/2022 [facility] inpatient psychiatric discharge summary: SI Brief History: History of Present Illness Emil Castro is a 51 year old male who presented to the emergency department with the following report: Chief Complaint: Psychiatric Symptoms Stated Complaint: SI Time Seen by Provider: 05/01/22 19:21 Source: patient Mode of arrival: ambulatory Limitations: no limitations History of Present Illness: 51-year-old male states he has a history of depression along with bipolar he had a suicide attempt impassable he states over the last 5 to 6 days he been having increased irritability along with suicidal thoughts he states he had thoughts of hanging himself from a tree. He states that he realized that he needed to get help or reason to harm himself he denies any worsening proving factors he is currently not on any meds. Associated symptoms: Reports depression and suicidal ideation He was admitted to the neuropsychiatric unit for definitive treatment of those issues. He presents today reporting that he had been spending most of his time after his last discharge in [place]. He reports that he has been working and doing fairly well. He reports initially he was taking his medication but at some point he stopped taking it and he could not give any reasonable explanation for why he did that or why he has a habit of doing that. He reports that he came back to [place] for some time off and to do some camping. He reports that he started having great irritability with people around him started having some really negative thoughts about reacting to his irritability. He thought then that it was best to come to the hospital before he did something that he regretted. We discussed the risk benefits and alternatives of resuming the medications he had previously done well on and he understood and agreed to proceed as is documented in this note. An excerpt of his last discharge summary is included below for context as he was not interested in details from a history standpoint. Per his 08/27/2021 [facility] inpatient psychiatric discharge summary: Discharge Diagnosis (1) Depression with suicidal ideation: Status: Resolved (2) Suicide attempt: Status: Acute (3) Alcohol dependence, in remission: Status: Acute (4) Drug-induced psychotic disorder: Status: Acute (5) Antisocial personality disorder: Status: Chronic (6) Depressed bipolar I disorder: Status: Resolved Permanent problem details: Patient does not name and get his prescriptions filled when discharged. I am discontinuing all his meds and referring him to outpatient follow-up. Reason for Visit Reason for Visit: SI Brief History: History of Present Illness Emil Castro is a 51 year old male who presented to the emergency department the following report: Chief complaint: Psychiatric Symptoms Stated complaint: SI Time Seen by Provider: 08/23/21 19:44 History of Present Illness: HPI: [51]yo patient w/ hx of depression presenting for suicidal ideation with plan. Patient plans to hang himself and decided against the last minute and came in to the ED. On arrival, the patient is AAOx3 and cooperative with my evaluation. No focal complaints of chest pain, shortness of breath, palpitations, N/V, focal GI/ complaints. Currently denies HI. No complaints of hallucinations. Onset: acute Duration: ongoing Location: home Severity: severe Associated symptoms: Deny chest pain, dyspnea, nausea, rash, palpitations or vomiting He was admitted to the neuropsychiatric unit for definitive treatment of those issues. Patient is well-known to the unit from multiple past inpatient stays the last of which was in June. He had previously been here much more often but had been having a modicum of success followed by some recent challenges again. He reports that after his last stay he had gone to [place] and was doing fairly well and told someone on convoluted story about how he was coming back here to get his mail arranged and that he decided once he was here that he was going to go ahead and say and he went to [facility] and they were lining up a place for him to stay in the next 2 or 3 days. But then frustrations and bad choices get the best of him which led him to presenting to the hospital yesterday. He reports another problem that led to him coming his way was that he has he will get his medication for about the last month or so he would not and could not explain whether this was related to him not following through on something to get refills or some other concern. Review of the chart suggested maybe he was given refills in the left in beginning of June. Unclear why that occurred. He was indicated to moving forward, getting his own place to [place] getting back on medication and trying to remain in the right direction. Documentation shows that he has been doing better when he comes to his addictive behavior however he reports sobriety extending back more than 6 months and I am unconvinced that that is accurate though. We discussed the risk benefits alternatives of getting his medications restarted and trying to assist him in stability on that front and he understood agreed proceed as is documented in this note. An excerpt of his June stay is included below for context. Hospital course 05/08/22 : He slowly acclimated to the individual, group and milieu therapies provided. He presented reporting irritability being off of medication. Seroquel was started at bedtime and 2 daytime doses were added. He was titrated up to 50 mg twice a day and 100 milligrams at night. He continues to have challenging living successes at home is becoming factor. He dorsoplantar this maneuver he has had some success. With his medications restarted and he did have significant improvement. He was able to contract for safety outside of the hospital prior to discharge. During the hospitalization, patient had routine laboratory studies which were within normal limits except for few outliers. Additionally there was a general medical evaluation which was also within normal limits and revealed no new acute processes. Discharge Summary: At the time of discharge, lethality was denied and psychosis was resolving. Mood and anxiety were well managed. Patient endorsed a plan to avoid all drugs of abuse and follow-up with the aftercare recommendations of the treatment team. Patient was evaluated and deemed to be absent credible lethality, and was voluntary and denied wanting any continued inpatient hospitalization, so he was discharged. Hospital Course 05/30/22: Discharge Summary: During the hospitalization, patient had routine laboratory studies which were within normal limits except for few outliers. Additionally there was a general medical evaluation which was also within normal limits and revealed no new acute processes. At the time of discharge, lethality was denied and psychosis was resolving. Mood and anxiety were well managed. Patient endorsed a plan to avoid all drugs of abuse and follow-up with the aftercare recommendations of the treatment team. Patient was evaluated and deemed to be absent credible lethality, and had achieved the maximum benefit from an inpatient hospitalization, so was discharged. Meds NPU Home Medications Medication Instructions Recorded Confirmed Last Taken Type aspirin 81 mg tablet,delayed 81 mg PO DAILY 10/02/22 10/02/22 Unknown History release multivitamin 1 tab PO DAILY 10/02/22 10/02/22 Unknown History Allergies Allergy/AdvReac Type Severity Reaction Status Date / Time Penicillins Allergy ALGY-Hives Verified 10/02/22 11:11 PFSH NPU PFSH: Medical History Alcohol dependence, in remission Antisocial personality disorder Bipolar 2 disorder Chronic alcohol abuse Drug-induced psychotic disorder Malingering Social History Smoking and tobacco status: current every day smoker Mental Status Exam MSE Comments: This is an obese white male in hospital scrubs with limited grooming and adequate eye contact.? No abnormal movements except for psychomotor agitation.? Somewhat cooperative with exam in mild to moderate distress.? Speech was increased rate and normal volume.? Mood described as not good, affect irritable.? Thought process mostly organized.? Thought content: Patient endorsed suicidal ideations and endorsed aggressive ideation towards others, there were no delusions reported or noted, he endorsed auditory but denied visual hallucinations.? Attention and concentration were limited and memory was mostly reliable but none were formally tested.? He is alert and oriented x3.? Insight and judgment are impaired, impulse control is impaired. Vitals/I&O/Wt Last Vital Signs Temp 98.1 F 10/02/22 20:22 Pulse 70 10/03/22 06:00 Resp 15 10/03/22 06:00 BP 112/80 10/03/22 06:00 Pulse Ox 98 10/03/22 06:00 O2 Del Method Room Air 10/03/22 06:00 Weight last 48 hrs Weight 117.934 kg Data NPU 10/02/22 11:37 10/02/22 11:37 A&P Assessment and plan (1) Depression with suicidal ideation: (2) Suicide attempt: (3) Alcohol dependence, in remission: (4) Drug-induced psychotic disorder: (5) Antisocial personality disorder: (6) Depressed bipolar I disorder: Plan This is a 52-year-old white male with a long history of multiple inpatient hospitalizations often with concerns for malingering who presents today reporting that he has not been taking his medication but but struggling with situations where he is feeling aggressive/suicidal/homicidal. 1.? Start Abilify 10 mg p.o. every morning. 2.? Continue every 15 minute checks for safety. 3.? Encourage individual, group and milieu therapies. 4.? Encourage sober living treatment after discharge at the highest level of care to which he is willing to commit.? Involuntary Hold Information 96 Hour Hold: 96 Hour Involuntary Admission: No Attestations NPU Medical Necessity Statement*: Inpatient hospitalization is medically necessary and the clinically appropriate intervention at this time.? We will monitor medications and make changes as indicated.? Patient will be in the hospital for over two midnights.? Likely length of stay 4-6 days. Coding Level of Care Code Acute Code for [facility] Fwd Diagnoses Depression with suicidal ideation F32.A; R45.851 Suicide attempt T14.91XA Alcohol dependence, in remission F10.21 Drug-induced psychotic disorder F19.959 Antisocial personality disorder F60.2 Depressed bipolar I disorder F31.9
[2022-10-03 14:00] VITALS: BP 144/76; PULSE 79; RESP 16; TEMP 36.7; O2SAT 99
[2022-10-03] MEDS: ARIPiprazole 10 mg Tablet PO (14:06)
[2022-10-03] MEDS: nicotine 4 mg lozenge MUCOUS MEM ×2 (14:11→18:27)
[2022-10-03] MEDS: OLANZapine 5 mg ODT PO (19:51)
[2022-10-03 20:05] VITALS: BP 133/78; PULSE 76; RESP 20; TEMP 36.8; O2SAT 96
[2022-10-03 20:34] LABS: Amphetamines Screen Urine Negative (Negative); Barbiturates Screen Urine Negative (Negative); Benzodiazepines Screen Urine Negative (Negative); Cocaine Screen Urine Negative (Negative); Opiate Screen Urine Negative (Negative); PCP Screen Urine Negative (Negative); THC Screen Urine Negative (Negative)
[2022-10-04 06:00] VITALS: BP 127/83; PULSE 79; RESP 16; O2SAT 96
[2022-10-04] MEDS: ARIPiprazole 10 mg Tablet PO (09:39)
[2022-10-04] MEDS: nicotine 4 mg lozenge MUCOUS MEM ×3 (12:22→18:12)
--- NOTE | 2022-10-04 13:35 | W.PM.NPUPNS ---
Subjective NPU Subjective: Patient presented today reporting that he did fairly well considering with the Abilify. He reports that he felt better but less groggy. Downside was some difficulty with sleep. We discussed that he had as needed medications for that. We discussed the risks, benefits and alternatives of increasing the Abilify to 15 mg and he understood and agreed to proceed as is documented in this note. Mental Status Exam MSE Comments: This is an obese white male in hospital scrubs with limited grooming and adequate eye contact.? No abnormal movements except for mild psychomotor agitation.? Somewhat cooperative with exam in mild distress.? Speech was increased rate and normal volume.? Mood described as not good, affect less irritable.? Thought process mostly organized.? Thought content: Patient endorsed suicidal ideations and endorsed aggressive ideation towards others, there were no delusions reported or noted, he endorsed auditory but denied visual hallucinations.? Attention and concentration were limited and memory was mostly reliable but none were formally tested.? He is alert and oriented x3.? Insight and judgment are impaired, impulse control is impaired. Vitals/I&O/Wt Last Vital Signs Temp 98.3 F 10/03/22 20:05 Pulse 79 10/04/22 06:00 Resp 16 10/04/22 06:00 BP 127/83 10/04/22 06:00 Pulse Ox 96 10/04/22 06:00 O2 Del Method Room Air 10/04/22 06:00 Data NPU 10/02/22 11:37 10/02/22 11:37 A&P Assessment and plan (1) Depression with suicidal ideation: (2) Suicide attempt: (3) Alcohol dependence, in remission: (4) Drug-induced psychotic disorder: (5) Antisocial personality disorder: (6) Depressed bipolar I disorder: Plan This is a 52-year-old white male with a long history of multiple inpatient hospitalizations often with concerns for malingering who presents today reporting that he has not been taking his medication but but struggling with situations where he is feeling aggressive/suicidal/homicidal. 1.? Started Abilify 10 mg p.o. every morning. Increase to 15 mg p.o. every morning. 2.? Continue every 15 minute checks for safety. 3.? Encourage individual, group and milieu therapies. 4.? Encourage sober living treatment after discharge at the highest level of care to which he is willing to commit.? Involuntary Hold Information 96 Hour Hold: 96 Hour Involuntary Admission: No Attestations NPU Medical Necessity Statement*: Inpatient hospitalization is medically necessary and the clinically appropriate intervention at this time.? We will monitor medications and make changes as indicated.? Likely length of stay 4-6 days. Coding Level of Care Code Acute Code for [facility] Fwd Diagnoses Depression with suicidal ideation F32.A; R45.851 Suicide attempt T14.91XA Alcohol dependence, in remission F10.21 Drug-induced psychotic disorder F19.959 Antisocial personality disorder F60.2 Depressed bipolar I disorder F31.9
[2022-10-04 13:53] VITALS: BP 119/78; PULSE 80; RESP 17; TEMP 36.7; O2SAT 98
[2022-10-04 20:10] VITALS: BP 105/66; PULSE 69; RESP 18; TEMP 36.7; O2SAT 97
[2022-10-04] MEDS: OLANZapine 5 mg ODT PO (20:26)
--- NOTE | 2022-10-05 06:48 | PC.NURSE ---
pt resting resp 18
--- NOTE | 2022-10-05 07:12 | P.NPUPN_ITS ---
Subjective NPU Subjective: Patient presented today reporting that he is feeling a little better with the Abilify. We discussed risks, benefits and alternatives of increasing to 15 mg daily understood and agreed proceed as documented in this note. Identified that sleep was still difficulty. Discussed Dr. Crowley assume care tomorrow. Mental Status Exam MSE Comments: This is an obese white male in hospital scrubs with limited grooming and adequate eye contact.? No abnormal movements except for resolving mild psychomot or agitation. Cooperative with exam in mild distress.? Speech was increased rate and normal volume.? Mood described as not good, affect less irritable.? Thought process mostly organized.? Thought content: Patient lessening suicidal ideations and improvement in aggressive ideation towards others, there were no delusions reported or noted, he endorsed auditory but denied visual hallucinations.? Att ention and concentration were limited and memory was mostly reliable but none were formally tested.? He is alert and oriented x3.? Insight and judgment are improving, impulse control is limited. Vitals/I&O/Wt Last Vital Signs Temp 98.0 F 10/04/22 20:10 Pulse 69 10/04/22 20:10 Resp 18 10/04/22 20:10 BP 105/66 10/04/22 20:10 Pulse Ox 97 10/04/22 20:10 O2 Del Method Room Air 10/04/22 20:10 Data NPU 10/02/22 11:37 10/02/22 11:37 A&P Assessment and plan (1) Depression with suicidal ideation: (2) Suicide attempt: (3) Alcohol dependence, in remission: (4) Drug-induced psychotic disorder: (5) Antisocial personality disorder: (6) Depressed bipolar I disorder: Plan This is a 52-year-old white male with a long history of multiple inpatient hospitalizations often with concerns for malingering who presents today repo rting that he has not been taking his medication but but struggling with situations where he is feeling aggressive/suicidal/homicidal. 1.? Started Abilify 10 mg p.o. every morning. Increase to 15 mg p.o. every morning. 2.? Continue every 15 minute checks for safety. 3.? Encourage individual, group and milieu therapies. 4.? Encourage sober living treatment after discharge at the highest level of care to which he is willing to commit.? Involuntary Hold Information 96 Hour Hold: 96 Hour Involuntary Admission: No Attestations NPU Medical Necessity Statement*: Inpatient hospitalization is medically necessary and the clinically appropriate intervention at this time.? We will monitor medications and make changes as indicated.? Likely length of stay 3-5 days. Coding Level of Care Code Acute Code for [facility] Fwd Diagnoses Depression with suicidal ideation F32.A; R45.851 Suicide attempt T14.91XA Alcohol dependence, in remission F10.21 Drug-induced psychotic disorder F19.959 Antisocial personality disorder F60.2 Depressed bipolar I disorder F31.9
[2022-10-05] MEDS: ARIPiprazole 10 mg Tablet 15 MG PO (08:27)
[2022-10-05] MEDS: nicotine 4 mg lozenge MUCOUS MEM ×4 (08:28→18:21)
[2022-10-05] MEDS: ibuprofen 600 mg Tablet PO ×2 (08:36→20:43)
[2022-10-05 14:00] VITALS: BP 121/83; PULSE 88; RESP 16; TEMP 36.8; O2SAT 98
[2022-10-05 19:27] VITALS: BP 125/79; PULSE 100; RESP 18; TEMP 36.5; O2SAT 96
[2022-10-05] MEDS: trazodone 50 mg Tablet PO (20:43)
[2022-10-06 06:00] VITALS: BP 136/84; PULSE 71; RESP 18; O2SAT 97
[2022-10-06] MEDS: ARIPiprazole 10 mg Tablet 15 MG PO (07:52)
[2022-10-06] MEDS: nicotine 4 mg lozenge MUCOUS MEM ×5 (08:22→20:36)
[2022-10-06 13:50] VITALS: BP 124/77; PULSE 95; RESP 18; TEMP 36.9; O2SAT 97
--- NOTE | 2022-10-06 14:06 | W.PM.NPUPNS ---
Subjective NPU Subjective: 52-year-old white male with a history of bipolar disorder admitted with suicidal ideation auditory hallucinations and noncompliance with his medications. The patient had reported that he was feeling better today. He stated that his hallucinations were no longer present. He had admitted to using alcohol. He had reported that he did not feel that he needed any further help with his alcohol use. He had reported that his suicidal thoughts were less intense. Mental Status Exam MSE Comments: He was cooperative with exam in mild distress.? His speech was normal in rate and normal volume.? Mood described as better. His affect was irritable and mood incongruent.? Thought process mostly organized.? Thought content: He minimized suicidal ideation and denies homicidal ideation. There were no delusions reported or noted, he endorsed auditory but denied visual hallucinations.? Attention and concentration were limited and memory was mostly reliable but none were formally tested.? He is alert and oriented x3.? Insight and judgment are improving, impulse control appeared poor. Vitals/I&O/Wt Last Vital Signs Temp 98.4 F 10/06/22 13:50 Pulse 95 10/06/22 13:50 Resp 18 10/06/22 13:50 BP 124/77 10/06/22 13:50 Pulse Ox 97 10/06/22 13:50 O2 Del Method Room Air 10/04/22 20:10 Weight last 48 hrs Weight 116.301 kg Data NPU 10/02/22 11:37 10/02/22 11:37 A&P Assessment and plan (1) Depression with suicidal ideation: (2) Suicide attempt: (3) Alcohol dependence, in remission: (4) Drug-induced psychotic disorder: (5) Antisocial personality disorder: (6) Depressed bipolar I disorder: Plan This is a 52-year-old white male with a long history of multiple inpatient hospitalizations often with concerns for malingering who presents today reporting that he has not been taking his medication but but struggling with situations where he is feeling aggressive/suicidal/homicidal. 1. Increase Abilify to 15 mg p.o. every morning. 2.? Continue every 15 minute checks for safety. 3.? Encourage individual, group and milieu therapies. 4.? Encourage sober living treatment after discharge at the highest level of care to which he is willing to commit.? Involuntary Hold Information 96 Hour Hold: 96 Hour Involuntary Admission: No Attestations NPU Medical Necessity Statement*: Inpatient hospitalization is medically necessary and the clinically appropriate intervention at this time.? We will monitor medications and make changes as indicated.? His likely length of stay 3-5 days. Coding Level of Care Code Acute Code for Chg Fwd Diagnoses Depression with suicidal ideation F32.A; R45.851 Suicide attempt T14.91XA Alcohol dependence, in remission F10.21 Drug-induced psychotic disorder F19.959 Antisocial personality disorder F60.2 Depressed bipolar I disorder F31.9
[2022-10-06] MEDS: hyDROXYzine 25 mg Capsule 50 MG PO (17:09)
--- NOTE | 2022-10-06 17:10 | PC.NURSE ---
PRN VISTARIL 50 MG GIVEN PO PER PT C/O STATED ANXIETY
[2022-10-06] MEDS: trazodone 50 mg Tablet PO (20:35)
[2022-10-06 21:53] VITALS: BP 116/80; PULSE 94; RESP 18; TEMP 37; O2SAT 98
[2022-10-07 06:00] VITALS: RESP 18
[2022-10-07] MEDS: ARIPiprazole 10 mg Tablet 15 MG PO (07:40)
[2022-10-07] MEDS: nicotine 4 mg lozenge MUCOUS MEM ×6 (07:40→19:43)
[2022-10-07 14:00] VITALS: BP 107/74; PULSE 96; RESP 18; TEMP 36.6; O2SAT 98
--- NOTE | 2022-10-07 17:28 | P.NPUPN_ITS ---
Subjective NPU Subjective: 52-year-old white male with a history of bipolar disorder admitted with suicidal ideation auditory hallucinations and noncompliance with his medications. He reported some reduction in his hallucinations. He reported no side effects from his Abilify. He had been redirectable on the milieu. He had reported no alcohol use in several months. He had expressed having no suicidal thoughts at this time. He had reported adequate energy. He continued to report some depression still. He had endorsed no racing thoughts. Mental Status Exam MSE Comments: He was cooperative with exam in mild distress.? His speech was normal in rate and normal volume.? Mood described as better. His affect was calmer today and mood-congruent. His thought process mostly organized.? Thought content: He mini mized suicidal ideation and denies homicidal ideation. There were no delusions reported or noted, he denied any auditory or visual hallucinations.? Attention and concentration were limited and memory was mostly reliable but none were formally tested.? He is alert and oriented x3.? Insight and judgment are improving, impulse control appeared poor. Vitals/I&O/Wt Last Vital Signs Temp 97.9 F 10/07/22 14:00 Pulse 96 10/07/22 14:00 Resp 18 10/07/22 14:00 BP 107/74 10/07/22 14:00 Pulse Ox 98 10/07/22 14:00 O2 Del Method Room Air 10/07/22 14:00 Weight last 48 hrs Weight 116.301 kg Data NPU 10/02/22 11:37 10/02/22 11:37 A&P Assessment and plan (1) Bipolar disorder with depression: (2) Depression with suicidal ideation: (3) Suicide attempt: (4) Alcohol dependence, in remission: (5) Drug-induced psychotic disorder: (6) Antisocial personality disorder: Plan This is a 52-year-old white male with a long history of multiple inpatient hos pitalizations often with concerns for malingering who presents today reporting that he has not been taking his medication but but struggling with situations where he is feeling aggressive/suicidal/homicidal. 1. Continue Abilify to 15 mg p.o. every morning. 2.? Continue every 15 minute checks for safety. 3.? Encourage individual, group and milieu therapies. 4.? Encourage sober living treatment after discharge at the highest level of care to which he is willing to commit.? Involuntary Hold Information 96 Hour Hold: 96 Hour Involuntary Admission: No Attestations NPU Medical Necessity Statement*: Inpatient hospitalization is medically necessary and the clinically appropriate intervention at this time.? We will monitor medications and make changes as indicated.? His likely length of stay 3-5 days. Coding Level of Care Code Acute Code for Chg Fwd Diagnoses Bipolar disorder with depression F31.9 Depression with suicidal ideation F32.A; R45.851 Suicide attempt T14.91XA Alcohol dependence, in remission F10.21 Drug-induced psychotic disorder F19.959 Antisocial personality disorder F60.2
[2022-10-07 20:17] VITALS: BP 128/88; PULSE 102; RESP 18; TEMP 37.1; O2SAT 98
[2022-10-07] MEDS: trazodone 50 mg Tablet PO (20:21)
--- NOTE | 2022-10-08 03:03 | PC.NURSE ---
PT RECEIVED 50 MG TRAZADONE REQUESTED FOR SLEEP. PT HAS BEEN RESTING SINCE SHORTLY AFTER MEDICATION WAS RECEIVED. MEDICATION WAS EFFECTIVE.
[2022-10-08 06:00] VITALS: BP 105/70; PULSE 76; RESP 18; O2SAT 98
[2022-10-08] MEDS: nicotine 4 mg lozenge MUCOUS MEM ×3 (06:28→12:47)
[2022-10-08] MEDS: ARIPiprazole 10 mg Tablet 15 MG PO (08:41)
--- NOTE | 2022-10-08 11:48 | DCPLANNER ---
. IMM was printed and explained and give to pt and copy put in file.
--- NOTE | 2022-10-08 12:39 | P.NPUDS_ITS ---
Diagnoses at Discharge Discharge Diagnosis (1) Bipolar disorder with depression: Status: Acute (2) Depression with suicidal ideation: Status: Resolved (3) Suicide attempt: Status: Acute (4) Alcohol dependence, in remission: Status: Acute (5) Drug-induced psychotic disorder: Status: Inactive (6) Antisocial personality disorder: Status: Inactive Reason for Visit Reason for Visit: SI Brief History: History of Present Illness Emil Castro is a 52 year old male who presented to the emergency department with the following report: Chief Complaint: Psychiatric Symptoms Stated Complaint: SI Time Seen by Provider: 10/02/22 11:11 Source: patient Mode of arrival: ambulatory History of Present Illness: ? 52-year-old male presents emergency room with complaint of suicidal ideations racing thoughts some hallucinations.? Patient has a history of alcoholism as well as bipolar disorder.? He states he stopped taking all of his medicines 5 or 6 months ago however he was hospitalized in early May of this year.? He was discharged on May 08 and then readmitted on May 18.? He did admit to drinking this morning he is still mildly agitated but not confrontational easily redirected.? He cannot give me a specific reason as to why he stopped his medications.? He did not particularly identify side effects he does states he did not get them refilled ? MD complaint: suicidal ideation Onset (ago): day(s) Duration: changing over time and getting worse History of same: Yes Relieving factors: none Exacerbating factors: alcohol Context: recent alcohol abuse Associated psychiatric symptoms: none Associated symptoms: Deny auditory hallucinations, visual hallucinations, delusions, depression, homicidal ideation, suicidal ideation or racing thoughts Treatments prior to arrival: none If self harm: admits thoughts of self harm and has plan. He was admitted to the neuropsychiatric unit for definitive treatment of those issues.? Patient presents today much like he is presented recently.? UDS was unremarkable with no noted active drug use.? This is in jackson contrast to his presentations 2+ years ago such that he was very agitated by the question about addiction.? We discussed the fact that this is part of our normal screening questions.? Which did seem to settle help.? He presented quite agitated and not very open to questioning endorsing that this irritability is the reason that he came to the hospital.? Reporting that he is finding himself to be quite easily agitated.? He reports that after his May hospitalization he discontinued the medication.? He reports that he went and got a job but then all that fell apart.? We discussed the issue with the medication and why he discontinued it and he reports that the Seroquel which previously was a stable and standard medication in his regimen made him too tired and unable to function.? He reported an openness to a trial of a new medication and we discussed the risks, benefits and alternatives of starting Abilify 10 mg p.o. daily and he understood and agreed to proceed as is documented in this note.? Otherwise he reported being homeless and having no real options and needing something to help with his agitation.? An excerpt of his May 2022 hospitalization is included below for historical context. Per his 05/30/2022 [facility] inpatient psychiatric discharge summary: Discharge Diagnosis (1) Depression with suicidal ideation: ? ? ? Status: Resolved (2) Suicide attempt: ? ? ? Status: Acute (3) Alcohol dependence, in remission: ? ? ? Status: Acute (4) Drug-induced psychotic disorder: ? ? ? Status: Inactive (5) Antisocial personality disorder: ? ? ? Status: Chronic (6) Depressed bipolar I disorder: ? ? ? Status: Resolved ? ? ? Permanent problem details: Patient does not name and get his prescriptions filled when discharged.? I am discontinuing all his meds and referring him to outpatient follow-up. Reason for Visit Reason for Visit: ? SI,MHE? Brief History: History of Present Illness Emil Castro is a 51 year old male who presented to the emergency part with the following report: Chief Complaint: Psychiatric Symptoms Stated Complaint: SI,MHE Time Seen by Provider: 05/17/22 17:36 Source: patient Mode of arrival: ambulatory Limitations: no limitations History of Present Illness: ? Patient is a 51-year-old male who is well-known to the emergency department here yet again for complaints of suicidal ideations, homicidal ideations, auditory hallucinations, and aggression/anger outbursts.? Patient has had multiple NPU admissions over the past few months.? Patient states he never has followed up with [facility] or a primary care provider after his discharges.? Patient states he is taking his prescribed medications.? He continues to drink alcohol.? States he has a plan to hang himself with a rope.? He states he feels homicidal towards men in general and sometimes wants to slit their throats. MD complaint: suicidal ideation and other (anger/agression, HI, auditory hallucinations) Duration: constant History of same: Yes Relieving factors: none Exacerbating factors: none Context: recent alcohol abuse Associated psychiatric symptoms: depression, suicidal ideation, homicidal ideation and auditory hallucinations Associated symptoms: Reports auditory hallucinations, depression, homicidal ideation and suicidal ideation; Deny visual hallucinations Treatments prior to arrival: none If self harm: admits thoughts of self harm and has plan. He was admitted to the Neuropsych Unit for definitive treatment of issues.? He presents like he has recently with significant irritability reporting concerned he is going to hurt someone. ? He reported that his medication based on his discharge functioning that seems unlikely.? However he continues significant difficulties with his housing and managing resources.? The fairly distant story reporting openness to continue medication but not expressing any clarity as what he was to do next.? We discussed working with treatment team on Friday to start to look more viable and sustainable housing and resources, which she agrees with but not emphatically.? We agreed to restart his medication and see how he does with regular administration and probably consider increasing his bedtime Seroquel and he understood agreed to proceed as is documented in this note Per his 05/08/2022 [facility] inpatient psychiatric discharge summary: SI? Brief History: History of Present Illness Emil Castro is a 51 year old male who presented to the emergency department with the following report: Chief Complaint: Psychiatric Symptoms Stated Complaint: SI Time Seen by Provider: 05/01/22 19:21 Source: patient Mode of arrival: ambulatory Limitations: no limitations History of Present Illness: ? 51-year-old male states he has a history of depression along with bipolar he had a suicide attempt impassable he states over the last 5 to 6 days he been having increased irritability along with suicidal thoughts he states he had thoughts of hanging himself from a tree.? He states that he realized that he needed to get help or reason to harm himself he denies any worsening proving factors he is currently not on any meds. Associated symptoms: Reports depression and suicidal ideation He was admitted to the neuropsychiatric unit for definitive treatment of those issues.? He presents today reporting that he had been spending most of his time after his last discharge in [place].? He reports that he has been working and doing fairly well.? He reports initially he was taking his medication but at some point he stopped taking it and he could not give any reasonable explanation for why he did that or why he has a habit of doing that.? He reports that he came back to [place] for some time off and to do some camping.? He reports that he started having great irritability with people around him started having some really negative thoughts about reacting to his irritability.? He thought then that it was best to come to the hospital before he did something that he regretted.? We discussed the risk benefits and alternatives of resuming the medications he had previously done well on and he understood and agreed to proceed as is documented in this note.? An excerpt of his last discharge summary is included below for context as he was not interested in details from a history standpoint. Per his 08/27/2021 [facility] inpatient psychiatric discharge summary: Discharge Diagnosis (1) Depression with suicidal ideation: ? ? ? Status: Resolved (2) Suicide attempt: ? ? ? Status: Acute (3) Alcohol dependence, in remission: ? ? ? Status: Acute (4) Drug-induced psychotic disorder: ? ? ? Status: Acute (5) Antisocial personality disorder: ? ? ? Status: Chronic (6) Depressed bipolar I disorder: ? ? ? Status: Resolved ? ? ? Permanent problem details: Patient does not name and get his prescriptions filled when discharged.? I am discontinuing all his meds and referring him to outpatient follow-up. Reason for Visit Reason for Visit: ? SI? Brief History: History of Present Illness Emil Castro is a 51 year old male who presented to the emergency department the following report: Chief complaint: Psychiatric Symptoms Stated complaint: SI Time Seen by Provider: 08/23/21 19:44 History of Present Illness: ?HPI: [51]yo patient w/ hx of depression presenting for suicidal ideation with plan.? Patient plans to hang himself and decided against the last minute and came in to the ED. On arrival, the patient is AAOx3 and cooperative with my evaluation. No focal complaints of chest pain, shortness of breath, palpitations, N/V, focal GI/ complaints. Currently denies HI. No complaints of hallucinations. Onset: acute Duration: ongoing Location: home Severity: severe Associated symptoms: Deny chest pain, dyspnea, nausea, rash, palpitations or vomiting He was admitted to the neuropsychiatric unit for definitive treatment of those issues.? Patient is well-known to the unit from multiple past inpatient stays the last of which was in June.? He had previously been here much more often but had been having a modicum of success followed by some recent challenges again.? He reports that after his last stay he had gone to [place] and was doing fairly well and told someone on convoluted story about how he was coming back here to get his mail arranged and that he decided once he was here that he was going to go ahead and say and he went to [facility] and they were lining up a place for him to stay in the next 2 or 3 days.? But then frustrations and bad choices get the best of him which led him to presenting to the hospital yesterday.? He reports another problem that led to him coming his way was that he has he will get his medication for about the last month or so he would not and could not explain whether this was related to him not following through on something to get refills or some other concern.? Review of the chart suggested maybe he was given refills in the left in beginning of June.? Unclear why that occurred.? He was indicated to moving forward, getting his own place to [facility] getting back on medication and trying to remain in the right direction.? Documentation shows that he has been doing better when he comes to his addictive behavior however he reports sobriety extending back more than 6 months and I am unconvinced that that is accurate though.? We discussed the risk benefits alternatives of getting his medications restarted and trying to assist him in stability on that front and he understood agreed proceed as is documented in this note.? An excerpt of his June stay is included below for context. Hospital course 05/08/22 : He slowly acclimated to the individual, group and milieu therapies provided.? He presented reporting irritability being off of medication.? Seroquel was started at bedtime and 2 daytime doses were added.? He was titrated up to 50 mg twice a day and 100 milligrams at night.? He continues to have challenging living successes at home is becoming factor.? He dorsoplantar this maneuver he has had some success.? With his medications restarted and he did have significant improvement.? He was able to contract for safety outside of the hospital prior to discharge.? During the hospitalization, patient had routine laboratory studies which were within normal limits except for few outliers.? Additionally there was a general medical evaluation which was also within normal limits and revealed no new acute processes. Discharge Summary: At the time of discharge, lethality was denied and psychosis was resolving.? Moo d and anxiety were well managed.? Patient endorsed a plan to avoid all drugs of abuse and follow-up with the aftercare recommendations of the treatment team.? Patient was evaluated and deemed to be absent credible lethality, and was voluntary and denied wanting any continued inpatient hospitalization, so he was discharged. Hospital Course 05/30/22: Discharge Summary: During the hospitalization, patient had routine laboratory studies which were within normal limits except for few outliers.? Additionally there was a general medical evaluation which was also within normal limits and revealed no new acute processes. At the time of discharge, lethality was denied and psychosis was resolving.? Mood and anxiety were well managed.? Patient endorsed a plan to avoid all drugs of abuse and follow-up with the aftercare recommendations of the treatment team.? Patient was evaluated and deemed to be absent credible lethality, and had achieved the maximum benefit from an inpatient hospitalization, so was discharged. Hospital Course Hospital Course During the hospitalization, the patient had routine laboratory studies which were within normal limits except for a few outliers.? Additionally, there was a general medical evaluation which was also within normal limits and revealed no new acute processes.? At the time of discharge, lethality was denied and psychosis was resolving.? Mood and anxiety were well managed.? The patient endorsed a plan to avoid all drugs of abuse and follow up with the aftercare recommendations of the treatment team.? The patient was evaluated and deemed to be absent credible lethality and had achieved the maximum benefit from an inpatient hospitalization, and so was discharged.? Involuntary Hold Information 96 Hour Hold: 96 Hour Involuntary Admission: No Mental Status Exam MSE Comments: He was cooperative with exam in no acute distress.? His speech was normal in rate and normal volume.? Mood described as better. His affect was brighter on discharge. His thought process was linear and logical and organized..? Thought content: He minimized suicidal ideation and denies homicidal ideation. There were no delusions reported or noted, he denied any auditory or visual hallucinations.? Attention and concentration were limited and memory was mostly reliable but none were formally tested.? He is alert and oriented x3.? Insight and judgment are improving, impulse control appeared improved. Discharge Data Studies Completed and Pending: Laboratory Results WBC 11.3 10^3/uL (4.0 -10.0) H 10/02/22 11:37 RBC 4.95 10^6/uL (4.1 -5.3) 10/02/22 11:37 Hgb 16.3 g/dL (11.7-1 6.6) 10/02/22 11:37 Hct 48.1 % (42.0-52.0 ) 10/02/22 11:37 MCV 97.2 fl (80-94) H 10/02/22 11:37 MCH 32.9 pg (28.0-34. 0) 10/02/22 11:37 MCHC 33.9 g/dL (30.0-3 6.0) 10/02/22 11:37 RDW 13.9 % (12.1-15.1 ) 10/02/22 11:37 Plt Count 202 10^3/cmm (130 -400) 10/02/22 11:37 MPV 10.1 fL (7.4-10.4 ) 10/02/22 11:37 Neut % (Auto) 68.5 % 10/02/22 11:37 Lymph % (Auto) 18.1 % 10/02/22 11:37 [place] % (Auto) 9.4 % 10/02/22 11:37 Eos % (Auto) 2.4 % 10/02/22 11:37 Baso % (Auto) 0.9 % 10/02/22 11:37 Neut # (Auto) 7.74 10^3/uL (1.8 -7.7) H 10/02/22 11:37 Lymph # (Auto) 2.1 10^3/uL (0.8- 4.8) 10/02/22 11:37 [place] # (Auto) 1.1 10^3/uL (0.2- 0.9) H 10/02/22 11:37 Eos # (Auto) 0.3 10^3/uL (0.0- 0.8) 10/02/22 11:37 Baso # (Auto) 0.1 10^3/uL (0.0- 0.1) 10/02/22 11:37 Nucleated RBC % (a uto) 0 % 10/02/22 11:37 Nucleated RBCs # 0.0 /100WBC 10/02/22 11:37 Sodium 140 mmol/L (136-1 45) 10/02/22 11:37 Potassium 4.5 mmol/L (3.5-5 .1) 10/02/22 11:37 Chloride 103 mmol/L (98-10 7) 10/02/22 11:37 Carbon Dioxide 25 mmol/L (22-29) 10/02/22 11:37 Anion Gap 16.5 (5-19) 10/02/22 11:37 BUN 11 mg/dL (6-20) 10/02/22 11:37 Creatinine 0.8 mg/dL (0.7-1. 2) 10/02/22 11:37 GFR Calculation 101.1 mL/min (90- 130) 10/02/22 11:37 Glucose 85 mg/dL (65-115) 10/02/22 11:37 Calculated Osmolal ity 289 mOsm/kg (285- 295) 10/02/22 11:37 Calcium 9.1 mg/dL (8.5-10 .5) 10/02/22 11:37 Total Bilirubin 0.8 mg/dL (0.15-1 .2) 10/02/22 11:37 AST 36 U/L (0-40) 10/02/22 11:37 ALT 32 U/L (0-41) 10/02/22 11:37 Alkaline Phosphata se 72 U/L (40-130) 10/02/22 11:37 Total Protein 6.9 g/dL (6.6-8.7 ) 10/02/22 11:37 Albumin 4.2 g/dL (3.5-5.2 ) 10/02/22 11:37 Globulin 2.7 g/dL (1.3-4.6 ) 10/02/22 11:37 Urine Color Yellow (Yellow) 10/02/22 12:30 Urine Appearance Clear (CLEAR) 10/02/22 12:30 Urine pH 8 (5-7) H 10/02/22 12:30 Ur Specific Gravit y 1.010 (1.005-1.0 30) 10/02/22 12:30 Urine Protein Neg (Negative) 10/02/22 12:30 Urine Glucose (UA) Norm (Normal) 10/02/22 12:30 Urine Ketones Negative (Negati ve) 10/02/22 12:30 Urine Blood Neg (Negative) 10/02/22 12:30 Urine Nitrate Negative (Negati ve) 10/02/22 12:30 Urine Bilirubin Neg (Negative) 10/02/22 12:30 Prot Sulfosalicyli c Acd Negative (Negati ve) 10/02/22 12:30 Urine Urobilinogen Norm mg/dL (Negat tony) 10/02/22 12:30 Ur Leukocyte Viktoria ase Negative (Negati ve) 10/02/22 12:30 Salicylates 0.5 mg/dL (3-10) L 10/02/22 11:37 Urine Opiates Scre en Negative ng/mL (N egative) 10/02/22 12:30 Acetaminophen < 5.0 ug/mL (10-3 0) L 10/02/22 11:37 Ur Barbiturates Sc reen Negative ng/mL (N egative) 10/02/22 12:30 Ur Phencyclidine S crn Negative ng/mL (N egative) 10/02/22 12:30 Ur Amphetamines Sc reen Negative ng/mL (N egative) 10/02/22 12:30 U Benzodiazepines Scrn Negative ng/mL (N egative) 10/02/22 12:30 Urine Cocaine Scre en Negative ng/mL (N egative) 10/02/22 12:30 U Marijuana (THC) Screen Negative ng/mL (N egative) 10/02/22 12:30 Ethyl Alcohol < 10 mg/dL (0-10) 10/02/22 11:37 Vitals: Last Vital Signs Temp 98.7 F 10/07/22 20:17 Pulse 76 10/08/22 06:00 Resp 18 10/08/22 06:00 BP 105/70 10/08/22 06:00 Pulse Ox 98 10/08/22 06:00 O2 Del Method Room Air 10/08/22 06:00 Discharge Plan Discharge Patient Disposition: Home Condition: Stable Prescriptions: New aripiprazole 15 mg tablet 15 mg PO DAILY 30 Days Qty: 30 1RF Continued multivitamin Tablet 1 tab PO DAILY Adult Low Dose Aspirin 81 mg tablet,delayed release (DR/EC) 81 mg PO DAILY Qty: 30 1RF Discharge Orders: Discharge Order (Routine); Ordered 10/08/22 Ordered By: Arash Crowley Referrals: [facility] [Other] [facility] [Outside] - 10/09/22 3:15 pm (Initial appointment telehealth @ [place] office with Rachael. ) Discharge Diet: Usual diet Discharge Activity: Resume usual activity Patient Instructions: Alcoholism, Alcohol Withdrawal, Aripiprazole (By mouth), Bipolar Disorder (GEN), Help Prevent Suicide (GEN), Suicide Prevention (GEN), Opioid Safety Discharge Attestations NPU Time Spent in Discharge Care*: less than 30 min Specific Discharge Activities: Specific discharge activities: educating patient and discussing with pcp/other providers Status at Discharge: Cognitive status at discharge: cognitively intact , Behavioral status at discharge: cooperative , Coding Level of Care Code Acute [facility] note Diagnoses Bipolar disorder with depression F31.9 Depression with suicidal ideation F32.A; R45.851 Suicide attempt T14.91XA Alcohol dependence, in remission F10.21 Drug-induced psychotic disorder F19.959 Antisocial personality disorder F60.2
[2022-10-08 13:03] VITALS: BP 105/70; PULSE 76; RESP 18; O2SAT 98
== END 2022-10-08 13:27 | disposition home or self-care (01) | DRG 885 ==
LOC: ER 12:41 → NP 17:27
PROVIDERS: Admitting Provider Psychiatry & Neurology Psychiatry; Emergency Provider Family Medicine; Visit Provider Psychiatry & Neurology Psychiatry
DX: F31.81 Bipolar II disorder (principal); R45.851 Suicidal ideations; R44.0 Auditory hallucinations; Z59.00 Homelessness unspecified; F10.21 Alcohol dependence, in remission; F17.210 Nicotine dependence, cigarettes, uncomplicated; Z79.82 Long term (current) use of aspirin; F60.2 Antisocial personality disorder; Z91.128 Patient's intentional underdosing of medication regimen for other reason
CPT/HCPCS: 36415; 80053; 80306; 80307; 81003; 85025; 97150; 97165; 99238; 99285

== ENCOUNTER 2022-11-22 18:06 | Inpatient (IN) | payer MEDICARE, MEDICAID, SELFPAY ==
[2022-11-22 18:14] VITALS: BP 126/81; PULSE 111; RESP 18; TEMP 36.8; O2SAT 96; BMI 35.8
[2022-11-22 18:24] VITALS: BP 126/81; PULSE 111; RESP 18; O2SAT 96
[2022-11-22 18:54] LABS: Add Urine Microscopic? NO; Charge for UA Resulting for Rev
[2022-11-22 19:01] LABS: Bilirubin Urine Neg (Negative); Blood Urine Neg (Negative); Glucose Urine UA Norm (Normal); Ketones Urine Negative (Negative); Leukocyte Esterase Urine Negative (Negative); Nitrate Urine Negative (Negative); Protein Urine Neg (Negative); Urine Appearance Clear (CLEAR); Urine Color Dark Yellow (Yellow); Urobilinogen Urine Norm (Negative); pH Urine 5 (5-7)
[2022-11-22 19:12] LABS: Amphetamines Screen Urine Positive (Negative); Barbiturates Screen Urine Negative (Negative); Benzodiazepines Screen Urine Negative (Negative); Cocaine Screen Urine Negative (Negative); Opiate Screen Urine Negative (Negative); PCP Screen Urine Negative (Negative); THC Screen Urine Negative (Negative)
[2022-11-22 20:13] LABS: Basophils # 0.1 10^3/uL (0.0-0.1); Basophils % 0.6 %; Eosinophils # 0.2 10^3/uL (0.0-0.8); Hematocrit 49.6 % (37-53); Lymphocytes # 2.1 10^3/uL (0.8-4.8); Lymphocytes % 13.2 %; Mean Corpuscular HGB Conc 34.7 g/dL (30-55); Mean Corpuscular Hemoglobin 33.4 pg (27-33); Mean Corpuscular Volume 96.3 fl (82-101); Monocytes # 1.3 10^3/uL (0.2-0.9); Monocytes % 8.5 %; Neutrophils # 11.85 10^3/uL (1.8-7.7); Neutrophils % 76.3 %; Nucleated Red Blood Cells % 0 %; Platelet Count 199 10^3/cmm (157-399); Red Blood Count 5.15 10^6/uL (3.85-5.65); White Blood Count 15.56 10^3/uL (3.29-11.43)
[2022-11-22 20:44] LABS: Alanine Aminotransferase 32 U/L (0-41); Albumin Level 4.6 g/dL (3.5-5.2); Alkaline Phosphatase 92 U/L (40-130); Anion Gap 15.7 (5-19); Aspartate Amino Transferase 26 U/L (0-40); Blood Urea Nitrogen 16 mg/dL (6-20); Calcium 9.5 mg/dL (8.5-10.5); Carbon Dioxide 26 mmol/L (22-29); Chloride 103 mmol/L (98-107); Globulin 2.9 g/dL (1.3-4.6); Glomerular Filtration Rate 88.3 mL/min (90-130); Glucose 83 mg/dL (65-115); Osmolality Calculated 292 mOsm/kg (285-295); Potassium 3.7 mmol/L (3.5-5.1); Salicylate 0.8 mg/dL (3-10); Sodium 141 mmol/L (136-145); Thyroid Stimulating Hormone 1.07 uIU/mL (0.27-4.20); Total Bilirubin 0.7 mg/dL (0.15-1.2); Total Protein 7.5 g/dL (6.6-8.7)
[2022-11-22 20:45] LABS: Acetaminophen < 5.0 ug/mL (10-30); Alcohol Level < 10 mg/dL (0-10)
--- NOTE | 2022-11-22 21:07 | W.ED.PSYCHS ---
HPI - Psych General: Chief Complaint: Psychiatric Symptoms Stated Complaint: SI Time Seen by Provider: 11/22/22 19:07 History of Present Illness: 52-year-old male with history of mood disorder and currently noncompliant with his medication presents emergency room with vague complaint of homicidal and suicidal ideation for the past few weeks. Patient reveals that he wants to shoot himself in the head and anticoagulant was attacking him. Patient denies any nausea, vomiting, chest pain, shortness of breath. Patient reveals that he is hearing voices from the birds. Associated symptoms: Reports auditory hallucinations, homicidal ideation and suicidal ideation; Deny visual hallucinations or delusions Review of Systems General: Reports: 10 or more systems reviewed and unremarkable except in HPI and below Const: Denies: fever(s), chills, body aches or change in appetite Skin/Breast: Denies: rash, pruritus, erythema or photosensitivity Psych: Reports: anxiety, auditory hallucinations, suicidal ideation and homicidal ideation; Denies: sleeping more, hopelessness, irritability, paranoia, difficulty concentrating or visual hallucinations PFSH ED PFSH: Medical History Alcohol dependence, in remission Antisocial personality disorder Bipolar 2 disorder Chronic alcohol abuse Drug-induced psychotic disorder Malingering Social History Smoking and tobacco status: current every day smoker Physical Exam Const: COMMON NORMALS: no acute distress, average body habitus, patient oriented x3, no limitations, healthy appearing, alert and well nourished GENERAL APPEARANCE: well kempt Neck/C-Spine: COMMON NORMALS: no JVD Resp: COMMON NORMALS: normal respiratory effort, No retractions, No use of accessory muscles, clear to auscultation bilaterally and percussion normal AUSCULTATION: clear to auscultation bilaterally PERCUSSION: percussion normal Cardio: COMMON NORMALS: no JVD, regular rate, regular rhythm, S1 normal heart sound present, S2 normal heart sound present, No gallops present (Cardio), No clicks present (Cardio), No murmurs present (Cardio), No rub (Cardio) and Peripheral pulses 2+ throughout RATE: regular rate RHYTHM: regular rhythm HEART SOUNDS: S1 normal heart sound present and S2 normal heart sound present PERIPHERAL PULSES: Peripheral pulses 2+ throughout Extremity: COMMON NORMALS: normal to inspection, full ROM, capillary refill normal, no joint enlargement, no clubbing, cyanosis or edema, no calf tenderness and no pedal edema Neuro: COMMON NORMALS: patient oriented x3 SENSORIUM/ORIENTATION: Yes alert Psych: COMMON NORMALS: Normal thought process present and speech normal APPEARANCE: Yes grossly normal and Yes well kempt ATTITUDE: Yes calm, No paranoid, No Withdrawn affect present and No Guarded attititude/behavior present ACTIVITY/MOTOR BEHAVIOR: Yes appropriate eye contact SPEECH: Yes normal speech MOOD & AFFECT: No elevated mood, No anxious, No euphoric, No irritable, No tearful and No fearful THOUGHT PROCESS: Normal thought process present THOUGHT CONTENT: Yes Suicidality present, Yes Homicidality present, No delusions and Yes Hallucination(s) present INSIGHT: Good insight present (Psych) JUDGEMENT: Good judgement present (Psych) Course Consultations: Consultation #1: Discussed patient with Dr. Bond and patient was accepted for inpatient admission. Vital Signs: Vital signs: Vital Signs Temperature 98.3 F 11/22/22 18:14 Pulse Rate 111 H 11/22/22 18:24 Respiratory Rate 18 11/22/22 18:24 Blood Pressure 126/81 11/22/22 18:24 Pulse Oximetry 96 11/22/22 18:24 Oxygen Delivery Me thod Room Air 11/22/22 18:24 MDM - Psych Medical Decision Making Patient made comfortable emergency room. Patient extensive work-up including CBC, CMP, UDS, alcohol level and TSH. Differential Diagnosis Likely acute psychosis, chronic schizophrenia, suicidal ideation, bipolar disorder, depression, drug-induced psychotic disorder and acute anxiety Lab Data 11/22/22 18:50 11/22/22 18:50 Laboratory Results WBC 15.56 10^3/uL (3.29-11.43) H 11/22/22 18:50 RBC 5.15 10^6/uL (3.85-5.65) 11/22/22 18:50 Hgb 17.20 g/dL (11.27-16.99) H 11/22/22 18:50 Hct 49.6 % (37-53) 11/22/22 18:50 MCV 96.3 fl (82-101) 11/22/22 18:50 MCH 33.4 pg (27-33) H 11/22/22 18:50 MCHC 34.7 g/dL (30-55) 11/22/22 18:50 RDW 13.0 % (12.1-15.1) 11/22/22 18:50 Plt Count 199 10^3/cmm (157-399) 11/22/22 18:50 MPV 11.0 fL (7.4-10.4) H 11/22/22 18:50 Neut % (Auto) 76.3 % 11/22/22 18:50 Lymph % (Auto) 13.2 % 11/22/22 18:50 [place] % (Auto) 8.5 % 11/22/22 18:50 Eos % (Auto) 1.0 % 11/22/22 18:50 Baso % (Auto) 0.6 % 11/22/22 18:50 Neut # (Auto) 11.85 10^3/uL (1.8-7.7) H 11/22/22 18:50 Lymph # (Auto) 2.1 10^3/uL (0.8-4.8) 11/22/22 18:50 [place] # (Auto) 1.3 10^3/uL (0.2-0.9) H 11/22/22 18:50 Eos # (Auto) 0.2 10^3/uL (0.0-0.8) 11/22/22 18:50 Baso # (Auto) 0.1 10^3/uL (0.0-0.1) 11/22/22 18:50 Nucleated RBC % (auto) 0 % 11/22/22 18:50 Nucleated RBCs # 0.0 /100WBC 11/22/22 18:50 Sodium 141 mmol/L (136-145) 11/22/22 18:50 Potassium 3.7 mmol/L (3.5-5.1) 11/22/22 18:50 Chloride 103 mmol/L (98-107) 11/22/22 18:50 Carbon Dioxide 26 mmol/L (22-29) 11/22/22 18:50 Anion Gap 15.7 (5-19) 11/22/22 18:50 BUN 16 mg/dL (6-20) 11/22/22 18:50 Creatinine 0.9 mg/dL (0.7-1.2) 11/22/22 18:50 GFR Calculation 88.3 mL/min (90-130) L 11/22/22 18:50 Glucose 83 mg/dL (65-115) 11/22/22 18:50 Calculated Osmolality 292 mOsm/kg (285-295) 11/22/22 18:50 Calcium 9.5 mg/dL (8.5-10.5) 11/22/22 18:50 Total Bilirubin 0.7 mg/dL (0.15-1.2) 11/22/22 18:50 AST 26 U/L (0-40) 11/22/22 18:50 ALT 32 U/L (0-41) 11/22/22 18:50 Alkaline Phosphatase 92 U/L (40-130) 11/22/22 18:50 Total Protein 7.5 g/dL (6.6-8.7) 11/22/22 18:50 Albumin 4.6 g/dL (3.5-5.2) 11/22/22 18:50 Globulin 2.9 g/dL (1.3-4.6) 11/22/22 18:50 TSH 1.07 uIU/mL (0.27-4.20) 11/22/22 18:50 Urine Color Dark yellow (Yellow) 11/22/22 18:39 Urine Appearance Clear (CLEAR) 11/22/22 18:39 Urine pH 5 (5-7) 11/22/22 18:39 Ur Specific [place] 1.030 (1.005-1.030) 11/22/22 18:39 Urine Protein Neg (Negative) 11/22/22 18:39 Urine Glucose (UA) Norm (Normal) 11/22/22 18:39 Urine Ketones Negative (Negative) 11/22/22 18:39 Urine Blood Neg (Negative) 11/22/22 18:39 Urine Nitrate Negative (Negative) 11/22/22 18:39 Urine Bilirubin Neg (Negative) 11/22/22 18:39 Urine Urobilinogen Norm mg/dL (Negative) 11/22/22 18:39 Ur Leukocyte Esterase Negative (Negative) 11/22/22 18:39 Salicylates 0.8 mg/dL (3-10) L 11/22/22 18:50 Urine Opiates Screen Negative ng/mL (Negative) 11/22/22 18:39 Acetaminophen < 5.0 ug/mL (10-30) L 11/22/22 18:50 Ur Barbiturates Screen Negative ng/mL (Negative) 11/22/22 18:39 Ur Phencyclidine Scrn Negative ng/mL (Negative) 11/22/22 18:39 Ur Amphetamines Screen Positive ng/mL (Negative) H 11/22/22 18:39 U Benzodiazepines Scrn Negative ng/mL (Negative) 11/22/22 18:39 Urine Cocaine Screen Negative ng/mL (Negative) 11/22/22 18:39 U Marijuana (THC) Screen Negative ng/mL (Negative) 11/22/22 18:39 Ethyl Alcohol < 10 mg/dL (0-10) 11/22/22 18:50 No radiology studies performed this visit Discharge Plan Discharge Patient Disposition: Admitted As Inpatient Admit Provider: Sam Bond Clinical Impression: Suicidal ideation, Chronic schizophrenia, Amphetamine abuse Condition: Stable Coding Level of Care Code ED Child And Adolescent Psychologist for Wilder Long
[2022-11-22] MEDS: LORazepam 1 mg Tablet PO (22:04)
[2022-11-22 22:51] VITALS: BP 128/71; PULSE 83; RESP 18; TEMP 36.6; O2SAT 97
[2022-11-22] MEDS: hyDROXYzine 25 mg Capsule 50 MG PO (23:59)
[2022-11-23] MEDS: trazodone 50 mg Tablet PO ×2 (00:02→20:17)
[2022-11-23 06:00] VITALS: BP 107/69; PULSE 81; RESP 16; TEMP 36.6; O2SAT 99
[2022-11-23 14:00] VITALS: BP 108/67; PULSE 70; RESP 18; TEMP 36.8; O2SAT 95
--- NOTE | 2022-11-23 14:51 | W.PM.NPUH&PS ---
Providers/Chief Complaint Admitting Physician: Sam Bond MD Chief Complaint: SI HPI NPU History of Present Illness Emil Castro is a 52 year old male who presented to the emergency department with the following report: Chief Complaint: Psychiatric Symptoms Stated Complaint: SI Time Seen by Provider: 11/22/22 19:07 History of Present Illness: 52-year-old male with history of mood disorder and currently noncompliant with his medication presents emergency room with vague complaint of homicidal and suicidal ideation for the past few weeks. Patient reveals that he wants to shoot himself in the head and anticoagulant was attacking him. Patient denies any nausea, vomiting, chest pain, shortness of breath. Patient reveals that he is hearing voices from the birds. Associated symptoms: Reports auditory hallucinations, homicidal ideation and suicidal ideation; Deny visual hallucinations or delusions. He was admitted to the neuropsychiatric unit for definitive treatment of those issues. He presents today well-known to this keno writer through previous hospitalizations. He presents as he generally has recently with suicidal versus homicidal ideation and with limited resources off of medication. [place] manage things air without significant resources he reports he has been off his medication for some time but gives no real indicator of what led to that change. He was last seen here 6 weeks ago and has continued struggles with ayan stability, housing and direction for that matter. He presents today without irritability which is a common factor in his presentations. He reports a desire to get assistance resuming his medication but when we talked about things like the ERE program and a stronger [facility] presence, he was fairly ambivalent about that kind of increased resources. We discussed the risks, benefits and alternatives of restarting his Abilify at an appropriate dose and he understood agreed to proceed as documented in this note. We broached the subject of the possibility of a long-acting injection. An excerpt of his 10/08/2022 discharge summary is included below for context. Per his 10/08/2022 [facility] inpatient psychiatric discharge summary: Discharge Diagnosis (1) Bipolar disorder with depression: Status: Acute (2) Depression with suicidal ideation: Status: Resolved (3) Suicide attempt: Status: Acute (4) Alcohol dependence, in remission: Status: Acute (5) Drug-induced psychotic disorder: Status: Inactive (6) Antisocial personality disorder: Status: Inactive Reason for Visit Reason for Visit: SI Brief History: History of Present Illness Emil Castro is a 52 year old male who presented to the emergency department with the following report: Chief Complaint: Psychiatric Symptoms Stated Complaint: SI Time Seen by Provider: 10/02/22 11:11 Source: patient Mode of arrival: ambulatory History of Present Illness: 52-year-old male presents emergency room with complaint of suicidal ideations racing thoughts some hallucinations. Patient has a history of alcoholism as well as bipolar disorder. He states he stopped taking all of his medicines 5 or 6 months ago however he was hospitalized in early May of this year. He was discharged on May 08 and then readmitted on May 18. He did admit to drinking this morning he is still mildly agitated but not confrontational easily redirected. He cannot give me a specific reason as to why he stopped his medications. He did not particularly identify side effects he does states he did not get them refilled MD complaint: suicidal ideation Onset (ago): day(s) Duration: changing over time and getting worse History of same: Yes Relieving factors: none Exacerbating factors: alcohol Context: recent alcohol abuse Associated psychiatric symptoms: none Associated symptoms: Deny auditory hallucinations, visual hallucinations, delusions, depression, homicidal ideation, suicidal ideation or racing thoughts Treatments prior to arrival: none If self harm: admits thoughts of self harm and has plan. He was admitted to the neuropsychiatric unit for definitive treatment of those issues. Patient presents today much like he is presented recently. UDS was unremarkable with no noted active drug use. This is in jackson contrast to his presentations 2+ years ago such that he was very agitated by the question about addiction. We discussed the fact that this is part of our normal screening questions. Which did seem to settle help. He presented quite agitated and not very open to questioning endorsing that this irritability is the reason that he came to the hospital. Reporting that he is finding himself to be quite easily agitated. He reports that after his May hospitalization he discontinued the medication. He reports that he went and got a job but then all that fell apart. We discussed the issue with the medication and why he discontinued it and he reports that the Seroquel which previously was a stable and standard medication in his regimen made him too tired and unable to function. He reported an openness to a trial of a new medication and we discussed the risks, benefits and alternatives of starting Abilify 10 mg p.o. daily and he understood and agreed to proceed as is documented in this note. Otherwise he reported being homeless and having no real options and needing something to help with his agitation. An excerpt of his May 2022 hospitalization is included below for historical context. Per his 05/30/2022 [facility] inpatient psychiatric discharge summary: Discharge Diagnosis (1) Depression with suicidal ideation: Status: Resolved (2) Suicide attempt: Status: Acute (3) Alcohol dependence, in remission: Status: Acute (4) Drug-induced psychotic disorder: Status: Inactive (5) Antisocial personality disorder: Status: Chronic (6) Depressed bipolar I disorder: Status: Resolved Permanent problem details: Patient does not name and get his prescriptions filled when discharged. I am discontinuing all his meds and referring him to outpatient follow-up. Reason for Visit Reason for Visit: SI,MHE Brief History: History of Present Illness Emil Castro is a 51 year old male who presented to the emergency part with the following report: Chief Complaint: Psychiatric Symptoms Stated Complaint: SI,MHE Time Seen by Provider: 05/17/22 17:36 Source: patient Mode of arrival: ambulatory Limitations: no limitations History of Present Illness: Patient is a 51-year-old male who is well-known to the emergency department here yet again for complaints of suicidal ideations, homicidal ideations, auditory hallucinations, and aggression/anger outbursts. Patient has had multiple NPU admissions over the past few months. Patient states he never has followed up with [facility] or a primary care provider after his discharges. Patient states he is taking his prescribed medications. He continues to drink alcohol. States he has a plan to hang himself with a rope. He states he feels homicidal towards men in general and sometimes wants to slit their throats. MD complaint: suicidal ideation and other (anger/agression, HI, auditory hallucinations) Duration: constant History of same: Yes Relieving factors: none Exacerbating factors: none Context: recent alcohol abuse Associated psychiatric symptoms: depression, suicidal ideation, homicidal ideation and auditory hallucinations Associated symptoms: Reports auditory hallucinations, depression, homicidal ideation and suicidal ideation; Deny visual hallucinations Treatments prior to arrival: none If self harm: admits thoughts of self harm and has plan. He was admitted to the Neuropsych Unit for definitive treatment of issues. He presents like he has recently with significant irritability reporting concerned he is going to hurt someone. He reported that his medication based on his discharge functioning that seems unlikely. However he continues significant difficulties with his housing and managing resources. The fairly distant story reporting openness to continue medication but not expressing any clarity as what he was to do next. We discussed working with treatment team on Friday to start to look more viable and sustainable housing and resources, which she agrees with but not emphatically. We agreed to restart his medication and see how he does with regular administration and probably consider increasing his bedtime Seroquel and he understood agreed to proceed as is documented in this note Per his 05/08/2022 [facility] inpatient psychiatric discharge summary: SI Brief History: History of Present Illness Emil Castro is a 51 year old male who presented to the emergency department with the following report: Chief Complaint: Psychiatric Symptoms Stated Complaint: SI Time Seen by Provider: 05/01/22 19:21 Source: patient Mode of arrival: ambulatory Limitations: no limitations History of Present Illness: 51-year-old male states he has a history of depression along with bipolar he had a suicide attempt impassable he states over the last 5 to 6 days he been having increased irritability along with suicidal thoughts he states he had thoughts of hanging himself from a tree. He states that he realized that he needed to get help or reason to harm himself he denies any worsening proving factors he is currently not on any meds. Associated symptoms: Reports depression and suicidal ideation He was admitted to the neuropsychiatric unit for definitive treatment of those issues. He presents today reporting that he had been spending most of his time after his last discharge in [place]. He reports that he has been working and doing fairly well. He reports initially he was taking his medication but at some point he stopped taking it and he could not give any reasonable explanation for why he did that or why he has a habit of doing that. He reports that he came back to [place] for some time off and to do some camping. He reports that he started having great irritability with people around him started having some really negative thoughts about reacting to his irritability. He thought then that it was best to come to the hospital before he did something that he regretted. We discussed the risk benefits and alternatives of resuming the medications he had previously done well on and he understood and agreed to proceed as is documented in this note. An excerpt of his last discharge summary is included below for context as he was not interested in details from a history standpoint. Per his 08/27/2021 [facility] inpatient psychiatric discharge summary: Discharge Diagnosis (1) Depression with suicidal ideation: Status: Resolved (2) Suicide attempt: Status: Acute (3) Alcohol dependence, in remission: Status: Acute (4) Drug-induced psychotic disorder: Status: Acute (5) Antisocial personality disorder: Status: Chronic (6) Depressed bipolar I disorder: Status: Resolved Permanent problem details: Patient does not name and get his prescriptions filled when discharged. I am discontinuing all his meds and referring him to outpatient follow-up. Reason for Visit Reason for Visit: SI Brief History: History of Present Illness Emil Castro is a 51 year old male who presented to the emergency department the following report: Chief complaint: Psychiatric Symptoms Stated complaint: SI Time Seen by Provider: 08/23/21 19:44 History of Present Illness: HPI: [51]yo patient w/ hx of depression presenting for suicidal ideation with plan. Patient plans to hang himself and decided against the last minute and came in to the ED. On arrival, the patient is AAOx3 and cooperative with my evaluation. No focal complaints of chest pain, shortness of breath, palpitations, N/V, focal GI/ complaints. Currently denies HI. No complaints of hallucinations. Onset: acute Duration: ongoing Location: home Severity: severe Associated symptoms: Deny chest pain, dyspnea, nausea, rash, palpitations or vomiting He was admitted to the neuropsychiatric unit for definitive treatment of those issues. Patient is well-known to the unit from multiple past inpatient stays the last of which was in June. He had previously been here much more often but had been having a modicum of success followed by some recent challenges again. He reports that after his last stay he had gone to [place] and was doing fairly well and told someone on convoluted story about how he was coming back here to get his mail arranged and that he decided once he was here that he was going to go ahead and say and he went to [facility] and they were lining up a place for him to stay in the next 2 or 3 days. But then frustrations and bad choices get the best of him which led him to presenting to the hospital yesterday. He reports another problem that led to him coming his way was that he has he will get his medication for about the last month or so he would not and could not explain whether this was related to him not following through on something to get refills or some other concern. Review of the chart suggested maybe he was given refills in the left in beginning of June. Unclear why that occurred. He was indicated to moving forward, getting his own place to [place] getting back on medication and trying to remain in the right direction. Documentation shows that he has been doing better when he comes to his addictive behavior however he reports sobriety extending back more than 6 months and I am unconvinced that that is accurate though. We discussed the risk benefits alternatives of getting his medications restarted and trying to assist him in stability on that front and he understood agreed proceed as is documented in this note. An excerpt of his June stay is included below for context. Hospital course 05/08/22 : He slowly acclimated to the individual, group and milieu therapies provided. He presented reporting irritability being off of medication. Seroquel was started at bedtime and 2 daytime doses were added. He was titrated up to 50 mg twice a day and 100 milligrams at night. He continues to have challenging living successes at home is becoming factor. He dorsoplantar this maneuver he has had some success. With his medications restarted and he did have significant improvement. He was able to contract for safety outside of the hospital prior to discharge. During the hospitalization, patient had routine laboratory studies which were within normal limits except for few outliers. Additionally there was a general medical evaluation which was also within normal limits and revealed no new acute processes. Discharge Summary: At the time of discharge, lethality was denied and psychosis was resolving. Mood and anxiety were well managed. Patient endorsed a plan to avoid all drugs of abuse and follow-up with the aftercare recommendations of the treatment team. Patient was evaluated and deemed to be absent credible lethality, and was voluntary and denied wanting any continued inpatient hospitalization, so he was discharged. Hospital Course 05/30/22: Discharge Summary: During the hospitalization, patient had routine laboratory studies which were within normal limits except for few outliers. Additionally there was a general medical evaluation which was also within normal limits and revealed no new acute processes. At the time of discharge, lethality was denied and psychosis was resolving. Mood and anxiety were well managed. Patient endorsed a plan to avoid all drugs of abuse and follow-up with the aftercare recommendations of the treatment team. Patient was evaluated and deemed to be absent credible lethality, and had achieved the maximum benefit from an inpatient hospitalization, so was discharged. Hospital Course During the hospitalization, the patient had routine laboratory studies which were within normal limits except for a few outliers. Additionally, there was a general medical evaluation which was also within normal limits and revealed no new acute processes. At the time of discharge, lethality was denied and psychosis was resolving. Mood and anxiety were well managed. The patient endorsed a plan to avoid all drugs of abuse and follow up with the aftercare recommendations of the treatment team. The patient was evaluated and deemed to be absent credible lethality and had achieved the maximum benefit from an inpatient hospitalization, and so was discharged. Meds NPU Home Medications Medication Instructions Recorded Confirmed Last Taken Type multivitamin (Daily Multi-Vitamin 1 tab PO DAILY 10/02/22 11/22/22 Unknown History tablet) aspirin 81 mg tablet,delayed 81 mg PO DAILY #30 tabs 10/08/22 11/22/22 Unknown Rx release (Adult Low Dose Aspirin) aripiprazole 15 mg tablet (Abilify) 15 mg PO DAILY 11/22/22 11/22/22 Unknown History Allergies Allergy/AdvReac Type Severity Reaction Status Date / Time Penicillins Allergy ALGY-Hives Verified 11/22/22 18:19 PFS NPU PFSH: Medical History Alcohol dependence, in remission Antisocial personality disorder Bipolar 2 disorder Chronic alcohol abuse Drug-induced psychotic disorder Malingering Social History Smoking and tobacco status: current every day smoker Mental Status Exam MSE Comments: This is an obese white male in hospital scrubs with appropriate grooming and adequate eye contact.? No abnormal movements except for mild psychomotor agitation.? Mostly cooperative with exam in mild distress.? Speech was increased rate and normal volume.? Mood described as frustrated, affect irritable.? Thought process mostly organized.? Thought content: Patient endorsed suicidal ideations and endorsed aggressive ideation towards others, there were no delusions reported or noted, he endorsed auditory but denied visual hallucinations.? Attention and concentration were limited and memory was mostly reliable but none were formally tested.? He is alert and oriented x3.? Insight and judgment are impaired, impulse control is impaired. Vitals/I&O/Wt Last Vital Signs Temp 98.3 F 11/23/22 14:00 Pulse 70 11/23/22 14:00 Resp 18 11/23/22 14:00 BP 108/67 11/23/22 14:00 Pulse Ox 95 11/23/22 14:00 O2 Del Method Room Air 11/23/22 14:00 11/23/22 14:59 Intake Total 800 / 800 Balance 800 / 800 Weight last 48 hrs Weight 115.757 kg Weight 116.573 kg Data NPU 11/22/22 18:50 11/22/22 18:50 A&P Assessment and plan (1) Bipolar disorder with depression: (2) Depression with suicidal ideation: (3) Suicide attempt: (4) Alcohol dependence, in remission: (5) Drug-induced psychotic disorder: (6) Antisocial personality disorder: (7) Suicidal ideation: (8) Chronic schizophrenia: (9) Amphetamine abuse: Plan This is a 52-year-old white male with a long history of multiple inpatient hospitalizations often with concerns for malingering who presents today reporting that he has not been taking his medication but but struggling with resources, homelessness and aggressive/suicidal/homicidal feelings and ideations. 1. Restart Abilify 10 mg p.o. every morning. 2.? Continue every 15 minute checks for safety. 3.? Encourage individual, group and milieu therapies. 4.? Encourage sober living treatment after discharge at the highest level of care to which he is willing to commit.? 5. Presentation fairly consistent with past presentations with help seeking but patient help rejecting in regards to many resources that might actually benefit his situation. At some point a serious conversation about guardianship may have to be explored. Involuntary Hold Information 96 Hour Hold: 96 Hour Involuntary Admission: No Attestations NPU Medical Necessity Statement*: Inpatient hospitalization is medically necessary and the clinically appropriate intervention at this time.? We will monitor medications and make changes as indicated.? His likely length of stay 3-5 days. Coding Level of Care Code Acute Code for [facility] Diagnoses Bipolar disorder with depression F31.9 Depression with suicidal ideation F32.A; R45.851 Suicide attempt T14.91XA Alcohol dependence, in remission F10.21 Drug-induced psychotic disorder F19.959 Antisocial personality disorder F60.2 Suicidal ideation R45.851 Chronic schizophrenia F20.9 Amphetamine abuse F15.10
[2022-11-23] MEDS: nicotine 4 mg lozenge MUCOUS MEM (17:40)
[2022-11-23 19:52] VITALS: BP 121/72; PULSE 88; RESP 18; TEMP 37; O2SAT 98
[2022-11-23] MEDS: ibuprofen 600 mg Tablet PO (20:17)
[2022-11-24 06:00] VITALS: BP 99/65; PULSE 67; RESP 16; TEMP 36.4; O2SAT 99
--- NOTE | 2022-11-24 07:14 | W.PM.NPUPNS ---
Subjective NPU Subjective: Patient presented today reporting that he is doing okay. He reports that he is tolerating the resumption of the Abilify. He denies any specific side effects. We discussed working with the social work team tomorrow to try to get a sense of what to do as far as his psychosocial challenges/living arrangements. Mental Status Exam MSE Comments: This is an obese white male in hospital scrubs with appropriate grooming and adequate eye contact.? No abnormal movements except for mild psychomotor agitation.? Mostly cooperative with exam in mild distress.? Speech was increased rate and normal volume.? Mood described as frustrated, affect irritable.? Thought process mostly organized.? Thought content: Patient endorsed suicidal ideations and endorsed aggressive ideation towards others, there were no delusions reported or noted, he endorsed auditory but denied visual hallucinations.? Attention and concentration were limited and memory was mostly reliable but none were formally tested.? He is alert and oriented x3.? Insight and judgment are impaired, impulse control is impaired. Vitals/I&O/Wt Last Vital Signs Temp 97.6 F 11/24/22 06:00 Pulse 67 11/24/22 06:00 Resp 16 11/24/22 06:00 BP 99/65 11/24/22 06:00 Pulse Ox 99 11/24/22 06:00 O2 Del Method Room Air 11/23/22 14:00 11/23/22 11/24/22 11/24/22 22:59 06:59 14:59 Intake Total 0 / 800 Balance 0 / 800 Weight last 48 hrs Weight 115.757 kg Weight 116.573 kg Data NPU 11/22/22 18:50 11/22/22 18:50 A&P Assessment and plan (1) Bipolar disorder with depression: (2) Depression with suicidal ideation: (3) Suicide attempt: (4) Alcohol dependence, in remission: (5) Drug-induced psychotic disorder: (6) Antisocial personality disorder: (7) Suicidal ideation: (8) Chronic schizophrenia: (9) Amphetamine abuse: Plan This is a 52-year-old white male with a long history of multiple inpatient hospitalizations often with concerns for malingering who presents today reporting that he has not been taking his medication but but struggling with resources, homelessness and aggressive/suicidal/homicidal feelings and ideations. 1. Restarted Abilify 10 mg p.o. every morning. 2.? Continue every 15 minute checks for safety. 3.? Encourage individual, group and milieu therapies. 4.? Encourage sober living treatment after discharge at the highest level of care to which he is willing to commit.? 5. Presentation fairly consistent with past presentations with help seeking but patient help rejecting in regards to many resources that might actually benefit his situation. At some point a serious conversation about guardianship may have to be explored. Involuntary Hold Information 96 Hour Hold: 96 Hour Involuntary Admission: No Attestations NPU Medical Necessity Statement*: Inpatient hospitalization is medically necessary and the clinically appropriate intervention at this time.? We will monitor medications and make changes as indicated.? His likely length of stay 2-4 days. Coding Level of Care Code Acute Code for [facility] Diagnoses Bipolar disorder with depression F31.9 Depression with suicidal ideation F32.A; R45.851 Suicide attempt T14.91XA Alcohol dependence, in remission F10.21 Drug-induced psychotic disorder F19.959 Antisocial personality disorder F60.2 Suicidal ideation R45.851 Chronic schizophrenia F20.9 Amphetamine abuse F15.10
[2022-11-24] MEDS: ARIPiprazole 10 mg Tablet PO (09:19)
[2022-11-24] MEDS: nicotine 4 mg lozenge MUCOUS MEM ×4 (09:19→17:28)
[2022-11-24 14:08] VITALS: BP 105/69; PULSE 76; RESP 16; TEMP 36.5; O2SAT 97
--- NOTE | 2022-11-24 17:32 | PC.NURSE ---
Pt wishes for social human services assistants to please call his stone repairer in the morning 11/25/22 to report that Emil is hospitalized. Officers name is Jalen Villaseñor
[2022-11-24] MEDS: OLANZapine 5 mg ODT PO (17:37)
[2022-11-24 19:59] VITALS: BP 131/76; PULSE 79; RESP 13; TEMP 36.7; O2SAT 97
[2022-11-24] MEDS: trazodone 50 mg Tablet PO (21:25)
[2022-11-25 06:00] VITALS: BP 119/70; PULSE 70; RESP 16; TEMP 36.3; O2SAT 97
--- NOTE | 2022-11-25 08:40 | PC.NURSE ---
During morning assessment, patient stated that he has suicidal thoughts with plan to use gun on himself. Patient also reports anxiety. Patient has HI, but no specific person. Patient says that being in the public makes him want to commit homicide. Patient informed to talk to staff with any issues or concerns. Understanding verbalized
[2022-11-25] MEDS: ARIPiprazole 10 mg Tablet PO (08:42)
[2022-11-25] MEDS: nicotine 4 mg lozenge MUCOUS MEM ×5 (09:10→21:11)
[2022-11-25 13:13] VITALS: BP 124/76; PULSE 75; RESP 16; TEMP 37.1; O2SAT 94
--- NOTE | 2022-11-25 14:24 | W.PM.NPUPNS ---
Subjective NPU Subjective: Patient presented today reporting that he was feeling better with the Abilify. We began talking about how Abilify Asimtufii should be available in the next couple of months and that he could transfer over to this medication so that he would only be requiring 6 shots a year moving forward. Otherwise he denied any side effects to the medication and report its feeling like it is an effective mostly nondrowsy medication. We discussed working with the treatment team for appropriate discharge options. Mental Status Exam MSE Comments: This is an obese white male in hospital scrubs with appropriate grooming and adequate eye contact.? No abnormal movements except for mild psychomotor agitation.? Mostly cooperative with exam in mild distress.? Speech was increased rate and normal volume.? Mood described as better, affect congruent.? Thought process mostly organized.? Thought content: Patient endorsed resolving suicidal ideations and decreased aggressive ideation towards others, there were no delusions reported or noted, he endorsed auditory but denied visual hallucinations.? Attention and concentration were limited and memory was mostly reliable but none were formally tested.? He is alert and oriented x3.? Insight and judgment are impaired, but improving, impulse control is impaired. Vitals/I&O/Wt Last Vital Signs Temp 98.8 F 11/25/22 13:13 Pulse 75 11/25/22 13:13 Resp 16 11/25/22 13:13 BP 124/76 11/25/22 13:13 Pulse Ox 94 11/25/22 13:13 O2 Del Method Room Air 11/25/22 13:13 11/24/22 11/25/22 11/25/22 22:59 06:59 14:59 Intake Total 720 / 840 Balance 720 / 840 Weight last 48 hrs Weight 115.757 kg Data NPU 11/22/22 18:50 11/22/22 18:50 A&P Assessment and plan (1) Bipolar disorder with depression: (2) Depression with suicidal ideation: (3) Suicide attempt: (4) Alcohol dependence, in remission: (5) Drug-induced psychotic disorder: (6) Antisocial personality disorder: (7) Suicidal ideation: (8) Chronic schizophrenia: (9) Amphetamine abuse: Plan This is a 52-year-old white male with a long history of multiple inpatient hospitalizations often with concerns for malingering who presents today reporting that he has not been taking his medication but but struggling with resources, homelessness and aggressive/suicidal/homicidal feelings and ideations. 1. Restarted Abilify 10 mg p.o. every morning. Began discussions about the long-acting Abilify injection. Likely start tomorrow 2.? Continue every 15 minute checks for safety. 3.? Encourage individual, group and milieu therapies. 4.? Encourage sober living treatment after discharge at the highest level of care to which he is willing to commit.? 5. Presentation fairly consistent with past presentations with help seeking but patient help rejecting in regards to many resources that might actually benefit his situation. At some point a serious conversation about guardianship may have to be explored. Involuntary Hold Information 96 Hour Hold: 96 Hour Involuntary Admission: No Attestations NPU Medical Necessity Statement*: Inpatient hospitalization is medically necessary and the clinically appropriate intervention at this time.? We will monitor medications and make changes as indicated.? His likely length of stay 1-4 days. Coding Level of Care Code Acute Code for [facility] Diagnoses Bipolar disorder with depression F31.9 Depression with suicidal ideation F32.A; R45.851 Suicide attempt T14.91XA Alcohol dependence, in remission F10.21 Drug-induced psychotic disorder F19.959 Antisocial personality disorder F60.2 Suicidal ideation R45.851 Chronic schizophrenia F20.9 Amphetamine abuse F15.10
[2022-11-25] MEDS: OLANZapine 5 mg ODT PO (16:43)
--- NOTE | 2022-11-25 16:43 | PC.NURSE ---
Patient asked for a medication for anger. Patient states that he doesn't know why he is mad, just that when he wakes up, he starts thinking about things and gets angry. Administered 5mg Zyprexa ODT. Will continue to monitor patient.
[2022-11-25 19:55] VITALS: BP 111/71; PULSE 80; RESP 17; TEMP 36.8; O2SAT 98
[2022-11-25] MEDS: trazodone 50 mg Tablet PO (21:10)
[2022-11-26 06:40] VITALS: BP 118/75; PULSE 66; RESP 16; TEMP 36.4; O2SAT 98
[2022-11-26] MEDS: ARIPiprazole 10 mg Tablet PO (08:09)
[2022-11-26] MEDS: nicotine 4 mg lozenge MUCOUS MEM ×5 (08:09→16:33)
--- NOTE | 2022-11-26 13:01 | P.NPUPN_ITS ---
Subjective NPU Subjective: Patient presented today reporting that he certainly feels better with the medication and that he is agreeable to a long-acting injectable. He is very happy about the idea that he can get the shot 6 times a year likely starting at the end of the year 2023. He acknowledges nonadherence as a major factor in some of his declines and is hopeful this could make a difference. We discussed the risks, benefits and alternatives of Abilify Maintena and he understood agreed to proceed as is documented in this note. Mental Status Exam MSE Comments: This is an obese white male in hospital scrubs with appropriate grooming and adequate eye contact.? No abnormal movements except for mild psychomotor a gitation.? Mostly cooperative with exam in mild distress.? Speech was increased rate and normal volume.? Mood described as better, affect congruent.? Thought process mostly organized.? Thought content: Patient endorsed resolving suicidal ideations and decreased aggressive ideation towards others, there were no delusions reported or noted, he endorsed auditory but denied visual hallucinations.? Attention and concentration were limited and memory was mostly reliable but none were formally tested.? He is alert and oriented x3.? Insight and judgment are impaired, but improving, impulse control is impaired. Vitals/I&O/Wt Last Vital Signs Temp 97.6 F 11/26/22 06:40 Pulse 66 11/26/22 06:40 Resp 16 11/26/22 06:40 BP 118/75 11/26/22 06:40 Pulse Ox 98 11/26/22 06:40 O2 Del Method Room Air 11/25/22 19:55 Data NPU 11/22/22 18:50 11/22/22 18:50 A&P Assessment and plan (1) Bipolar disorder with depression: (2) Depression with suicidal ideation: (3) Suicide attempt: (4) Alcohol dependence, in remission: (5) Drug-induced psychotic disorder: (6) Antisocial personality disorder: (7) Suicidal ideation: (8) Chronic schizophrenia: (9) Amphetamine abuse: Plan This is a 52-year-old white male with a long history of multiple inpatient hospitalizations often with concerns for malingering who presents today reporting that he has not been taking his medication but but struggling with resources, homelessness and aggressive/suicidal/homicidal feelings and ideations. 1. Restarted Abilify 10 mg p.o. every morning. Given Abilify Maintena 400 mg IM q. monthly today with ultimate plan to get him on the Invega Asimtufii as soon as available at the end of the year/beginning of the year. 2.? Continue every 15 minute checks for safety. 3.? Encourage individual, group and milieu therapies. 4.? Encourage sober living treatment after discharge at the highest level of care to which he is willing to commit.? 5. Presentation fairly consistent with past presentations with help seeking but patient help rejecting in regards to many resources that might actually benefit his situation. At some point a serious conversation about guardianship may have to be explored. Involuntary Hold Information 96 Hour Hold: 96 Hour Involuntary Admission: No Attestations NPU Medical Necessity Statement*: Inpatient hospitalization is medically necessary and the clinically appropriate intervention at this time.? We will monitor medications and make changes as indicated.? His likely length of stay 1-3 days. Coding Level of Care Code Acute Code for [facility] Diagnoses Bipolar disorder with depression F31.9 Depression with suicidal ideation F32.A; R45.851 Suicide attempt T14.91XA Alcohol dependence, in remission F10.21 Drug-induced psychotic disorder F19.959 Antisocial personality disorder F60.2 Suicidal ideation R45.851 Chronic schizophrenia F20.9 Amphetamine abuse F15.10
[2022-11-26 14:13] VITALS: BP 123/84; PULSE 76; RESP 18; TEMP 36.6; O2SAT 99
[2022-11-26] MEDS: ARIPiprazole Maintena 400 MG IM (14:35)
[2022-11-26] MEDS: trazodone 50 mg Tablet PO (20:07)
[2022-11-26 20:27] VITALS: BP 104/65; PULSE 70; RESP 18; TEMP 36.6; O2SAT 96
[2022-11-27 06:00] VITALS: BP 123/83; PULSE 68; RESP 16; TEMP 36.6; O2SAT 98
[2022-11-27] MEDS: nicotine 4 mg lozenge MUCOUS MEM ×7 (06:31→20:32)
[2022-11-27] MEDS: ARIPiprazole 10 mg Tablet PO (08:08)
--- NOTE | 2022-11-27 09:50 | W.PM.NPUPNS ---
Subjective NPU Subjective: Patient presented today reporting that he is doing well. He reports that he tolerated the injection without any difficulties. And is excited to get back to [place] and possibly find a job but try to get his life back on track. We discussed the 12-13 more days of oral overlap he needs before he will be fully off of the oral medication. We continue to discuss the Abilify Asimtufii which will likely not be available till the end of the year beginning of next year but for him to keep that name in mind so that he can go to 6 shots a year. We discussed a plan for discharge in the morning. Mental Status Exam MSE Comments: This is an obese white male in hospital scrubs with appropriate grooming and adequate eye contact.? No abnormal movements except for mild psychomotor agitation.? Mostly cooperative with exam in mild distress.? Speech was increased rate and normal volume.? Mood described as better, affect congruent.? Thought process mostly organized.? Thought content: Patient endorsed resolving suicidal ideations and decreased aggressive ideation towards others, there were no delusions reported or noted, he endorsed auditory but denied visual hallucinations.? Attention and concentration were limited and memory was mostly reliable but none were formally tested.? He is alert and oriented x3.? Insight and judgment are impaired, but improving, impulse control is impaired. Vitals/I&O/Wt Last Vital Signs Temp 97.9 F 11/27/22 06:00 Pulse 68 11/27/22 06:00 Resp 16 11/27/22 06:00 BP 123/83 11/27/22 06:00 Pulse Ox 98 11/27/22 06:00 O2 Del Method Room Air 11/26/22 14:13 11/26/22 11/27/22 11/27/22 22:59 06:59 14:59 Intake Total 720 / 720 Balance 720 / 720 Data NPU 11/22/22 18:50 11/22/22 18:50 A&P Assessment and plan (1) Bipolar disorder with depression: (2) Depression with suicidal ideation: (3) Suicide attempt: (4) Alcohol dependence, in remission: (5) Drug-induced psychotic disorder: (6) Antisocial personality disorder: (7) Suicidal ideation: (8) Chronic schizophrenia: (9) Amphetamine abuse: Plan This is a 52-year-old white male with a long history of multiple inpatient hospitalizations often with concerns for malingering who presents today reporting that he has not been taking his medication but but struggling with resources, homelessness and aggressive/suicidal/homicidal feelings and ideations. 1. Restarted Abilify 10 mg p.o. every morning. Given Abilify Maintena 400 mg IM q. monthly 11/26/2022 with ultimate plan to get him on the Invega Asimtufii as soon as available at the end of the year/beginning of the year. 2.? Continue every 15 minute checks for safety. 3.? Encourage individual, group and milieu therapies. 4.? Encourage sober living treatment after discharge at the highest level of care to which he is willing to commit.? 5. Presentation fairly consistent with past presentations with help seeking but patient help rejecting in regards to many resources that might actually benefit his situation. At some point a serious conversation about guardianship may have to be explored. Plan for discharge tomorrow. Involuntary Hold Information 96 Hour Hold: 96 Hour Involuntary Admission: No Attestations NPU Medical Necessity Statement*: Inpatient hospitalization is medically necessary and the clinically appropriate intervention at this time.? We will monitor medications and make changes as indicated.? His likely length of stay 1-2 days. Coding Level of Care Code Acute Code for [facility] Diagnoses Bipolar disorder with depression F31.9 Depression with suicidal ideation F32.A; R45.851 Suicide attempt T14.91XA Alcohol dependence, in remission F10.21 Drug-induced psychotic disorder F19.959 Antisocial personality disorder F60.2 Suicidal ideation R45.851 Chronic schizophrenia F20.9 Amphetamine abuse F15.10
[2022-11-27 13:39] VITALS: BP 116/71; PULSE 64; RESP 16; TEMP 36.7; O2SAT 96
[2022-11-27] MEDS: ibuprofen 600 mg Tablet PO (14:40)
[2022-11-27 20:21] VITALS: BP 95/54; PULSE 68; RESP 16; TEMP 36.5; O2SAT 96
[2022-11-27] MEDS: trazodone 50 mg Tablet PO (20:31)
[2022-11-28] MEDS: nicotine 4 mg lozenge MUCOUS MEM ×6 (05:53→18:16)
[2022-11-28 06:00] VITALS: BP 136/87; PULSE 86; RESP 16; TEMP 36.9; O2SAT 96
[2022-11-28] MEDS: ARIPiprazole 10 mg Tablet PO (08:33)
[2022-11-28] MEDS: ibuprofen 600 mg Tablet PO (08:55)
--- NOTE | 2022-11-28 11:10 | DCPLANNER ---
IMM was completed 11/28/22 @ 1044. Pt was given a copy of rights and he stated he understood his rights.
--- NOTE | 2022-11-28 11:16 | P.NPUPN_ITS ---
Subjective NPU Subjective: Patient presented today reporting that he is doing fine. We discussed that a ride could not be arranged to the place he needs to go by their 12:00 cut off time but a ride was able to be arranged for first thing tomorrow morning. He was fine with that and is excited about the plan. He denies any side effects to his medication or any problems with the injection and we once again reviewed the 11-day oral overlap after discharge for the Invega Maintena. Mental Status Exam MSE Comments: This is an obese white male in hospital scrubs with appropriate grooming and adequate eye contact.? No abnormal movements except for mild psychomotor agitation.? Mostly cooperative with exam in mild distress.? Speech was increased rate and normal volume.? Mood described as better, affect congruent.? Thought process mostly organized.? Thought content: Patient endorsed resolving suicidal ideations and decreased aggressive ideation towards others, there were no delusions reported or noted, he endorsed auditory but denied visual hallucinations.? Attention and concentration were limited and memory was mostly reliable but none were formally tested.? He is alert and oriented x3.? Insight and judgment are impaired, but improving, impulse control is impaired. Vitals/I&O/Wt Last Vital Signs Temp 98.4 F 11/28/22 06:00 Pulse 86 11/28/22 06:00 Resp 16 11/28/22 06:00 BP 136/87 11/28/22 06:00 Pulse Ox 96 11/28/22 06:00 O2 Del Method Room Air 11/28/22 06:00 Data NPU 11/22/22 18:50 11/22/22 18:50 A&P Assessment and plan (1) Bipolar disorder with depression: (2) Depression with suicidal ideation: (3) Suicide attempt: (4) Alcohol dependence, in remission: (5) Drug-induced psychotic disorder: (6) Antisocial personality disorder: (7) Suicidal ideation: (8) Chronic schizophrenia: (9) Amphetamine abuse: Plan This is a 52-year-old white male with a long history of multiple inpatient hospitalizations often with concerns for malingering who presents today reporting that he has not been taking his medication but but struggling with resources, homelessness and aggressive/suicidal/homicidal feelings and ideations. 1. Restarted Abilify 10 mg p.o. every morning. Given Abilify Maintena 400 mg IM q. monthly 11/26/2022 with ultimate plan to get him on the Invega Asimtufii as soon as available at the end of the year/beginning of the year. 2.? Continue every 15 minute checks for safety. 3.? Encourage individual, group and milieu therapies. 4.? Encourage sober living treatment after discharge at the highest level of c are to which he is willing to commit.? 5. Presentation fairly consistent with past presentations with help seeking but patient help rejecting in regards to many resources that might actually benefit his situation. At some point a serious conversation about guardianship may have to be explored. Plan for discharge tomorrow. Involuntary Hold Information 96 Hour Hold: 96 Hour Involuntary Admission: No Attestations NPU Medical Necessity Statement*: Inpatient hospitalization is medically necessary and the clinically appropriate intervention at this time.? We will monitor medications and make changes as in dicated.? His likely length of stay 1-2 days. Coding Level of Care Code Acute Code for [facility] Diagnoses Bipolar disorder with depression F31.9 Depression with suicidal ideation F32.A; R45.851 Suicide attempt T14.91XA Alcohol dependence, in remission F10.21 Drug-induced psychotic disorder F19.959 Antisocial personality disorder F60.2 Suicidal ideation R45.851 Chronic schizophrenia F20.9 Amphetamine abuse F15.10
[2022-11-28 14:00] VITALS: BP 128/85; PULSE 90; RESP 16; TEMP 36.6; O2SAT 94
[2022-11-28 20:08] VITALS: BP 119/68; PULSE 69; RESP 18; TEMP 36.3; O2SAT 98
[2022-11-29 06:00] VITALS: BP 135/86; PULSE 71; RESP 18; O2SAT 97
[2022-11-29] MEDS: nicotine 4 mg lozenge MUCOUS MEM (06:04)
--- NOTE | 2022-11-29 06:32 | P.NPUDS_ITS ---
Diagnoses at Discharge Discharge Diagnosis (1) Bipolar disorder with depression: Status: Inactive (2) Depression with suicidal ideation: Status: Resolved (3) Suicide attempt: Status: Resolved (4) Alcohol dependence, in remission: Status: Acute (5) Drug-induced psychotic disorder: Status: Inactive (6) Antisocial personality disorder: Status: Inactive (7) Suicidal ideation: Status: Resolved (8) Chronic schizophrenia: Status: Acute (9) Amphetamine abuse: Status: Acute Reason for Visit Reason for Visit: SI Brief History: History of Present Illness Emil Castro is a 52 year old male who presented to the emergency department with the following report: Chief Complaint: Psychiatric Symptoms Stated Complaint: SI Time Seen by Provider: 11/22/22 19:07 History of Present Illness: 52-year-old male with history of mood disorder and currently noncompliant with his medication presents emergency room with vague complaint of homicidal and suicidal ideation for the past few weeks. Patient reveals that he wants to shoot himself in the head and anticoagulant was attacking him. Patient denies any nausea, vomiting, chest pain, shortness of breath. Patient reveals that he is hearing voices from the birds. Associated symptoms: Reports auditory hallucinations, homicidal ideation and suicidal ideation; Deny visual hallucinations or delusions. He was admitted to the neuropsychiatric unit for definitive treatment of those issues. He presents today well-known to this jingle writer through previous hospitalizations. He presents as he generally has recently with suicidal versus homicidal ideation and with limited resources off of medication. [place] manage things air without significant resources he reports he has been off his medication for some time but gives no real indicator of what led to that change. He was last seen here 6 weeks ago and has continued struggles with ayan stability, housing and direction for that matter. He presents today without irritability which is a common factor in his presentations. He reports a desire to get assistance resuming his medication but when we talked about things like the ERE program and a stronger [facility] presence, he was fairly ambivalent about that kind of increased resources. We discussed the risks, benefits and alternatives of restarting his Abilify at an appropriate dose and he understood agreed to proceed as documented in this note. We broached the subject of the possibility of a long-acting injection. An excerpt of his 10/08/2022 discharge summary is included below for context. Per his 10/08/2022 [facility] inpatient psychiatric discharge summary: Discharge Diagnosis (1) Bipolar disorder with depression: Status: Acute (2) Depression with suicidal ideation: Status: Resolved (3) Suicide attempt: Status: Acute (4) Alcohol dependence, in remission: Status: Acute (5) Drug-induced psychotic disorder: Status: Inactive (6) Antisocial personality disorder: Status: Inactive Reason for Visit Reason for Visit: SI Brief History: History of Present Illness Emil Castro is a 52 year old male who presented to the emergency department with the following report: Chief Complaint: Psychiatric Symptoms Stated Complaint: SI Time Seen by Provider: 10/02/22 11:11 Source: patient Mode of arrival: ambulatory History of Present Illness: 52-year-old male presents emergency room with complaint of suicidal ideations racing thoughts some hallucinations. Patient has a history of alcoholism as well as bipolar disorder. He states he stopped taking all of his medicines 5 or 6 months ago however he was hospitalized in early May of this year. He was discharged on May 08 and then readmitted on May 18. He did admit to drinking this morning he is still mildly agitated but not confrontational easily redirected. He cannot give me a specific reason as to why he stopped his medications. He did not particularly identify side effects he does states he d id not get them refilled MD complaint: suicidal ideation Onset (ago): day(s) Duration: changing over time and getting worse History of same: Yes Relieving factors: none Exacerbating factors: alcohol Context: recent alcohol abuse Associated psychiatric symptoms: none Associated symptoms: Deny auditory hallucinations, visual hallucinations, delusions, depression, homicidal ideation, suicidal ideation or racing thoughts Treatments prior to arrival: none If self harm: admits thoughts of self harm and has plan. He was admitted to the neuropsychiatric unit for definitive treatment of those issues. Patient presents today much like he is presented recently. UDS was unremarkable with no noted active drug use. This is in jackson contrast to his presentations 2+ years ago such that he was very agitated by the question about addiction. We discussed the fact that this is part of our normal screening questions. Which did seem to settle help. He presented quite agitated and not very open to questioning endorsing that this irritability is the reason that he came to the hospital. Reporting that he is finding himself to be quite easily agitated. He reports that after his May hospitalization he discontinued the medication. He reports that he went and got a job but then all that fell apart. We discussed the issue with the medication and why he discontinued it and he reports that the Seroquel which previously was a stable and standard medication in his regimen made him too tired and unable to function. He reported an openness to a trial of a new medication and we discussed the risks, benefits and alternatives of starting Abilify 10 mg p.o. daily and he understood and agreed to proceed as is documented in this note. Otherwise he reported being homeless and having no real options and needing something to help with his agitation. An excerpt of his May 2022 hospitalization is included below for historical context. Per his 05/30/2022 [facility] inpatient psychiatric discharge summary: Discharge Diagnosis (1) Depression with suicidal ideation: Status: Resolved (2) Suicide attempt: Status: Acute (3) Alcohol dependence, in remission: Status: Acute (4) Drug-induced psychotic disorder: Status: Inactive (5) Antisocial personality disorder: Status: Chronic (6) Depressed bipolar I disorder: Status: Resolved Permanent problem details: Patient does not name and get his prescriptions filled when discharged. I am discontinuing all his meds and referring him to outpatient follow-up. Reason for Visit Reason for Visit: SI,MHE Brief History: History of Present Illness Emil Castro is a 51 year old male who presented to the emergency part with the following report: Chief Complaint: Psychiatric Symptoms Stated Complaint: SI,MHE Time Seen by Provider: 05/17/22 17:36 Source: patient Mode of arrival: ambulatory Limitations: no limitations History of Present Illness: Patient is a 51-year-old male who is well-known to the emergency department here yet again for complaints of suicidal ideations, homicidal ideations, auditory hallucinations, and aggression/anger outbursts. Patient has had multiple NPU admissions over the past few months. Patient states he never has followed up with [facility] or a primary care provider after his discharges. Patient states he is taking his prescribed medications. He continues to drink alcohol. States he has a plan to hang himself with a rope. He states he feels homicidal towards men in general and sometimes wants to slit their throats. MD complaint: suicidal ideation and other (anger/agression, HI, auditory hallucinations) Duration: constant History of same: Yes Relieving factors: none Exacerbating factors: none Context: recent alcohol abuse Associated psychiatric symptoms: depression, suicidal ideation, homicidal ideation and auditory hallucinations Associated symptoms: Reports auditory hallucinations, depression, homicidal ideation and suicidal ideation; Deny visual hallucinations Treatments prior to arrival: none If self harm: admits thoughts of self harm and has plan. He was admitted to the Neuropsych Unit for definitive treatment of issues. He presents like he has recently with significant irritability reporting concerned he is going to hurt someone. He reported that his medication based on his discharge functioning that seems unlikely. However he continues significant difficulties with his housing and managing resources. The fairly distant story reporting openness to continue medication but not expressing any clarity as what he was to do next. We discussed working with treatment team on Friday to start to look more viable and sustainable housing and resources, which she agrees with but not emphatically. We agreed to restart his medication and see how he does with regular administration and probably consider increasing his bedtime Seroquel and he understood agreed to proceed as is documented in this note Per his 05/08/2022 [facility] inpatient psychiatric discharge summary: SI Brief History: History of Present Illness Emil Castro is a 51 year old male who presented to the emergency department with the following report: Chief Complaint: Psychiatric Symptoms Stated Complaint: SI Time Seen by Provider: 05/01/22 19:21 Source: patient Mode of arrival: ambulatory Limitations: no limitations History of Present Illness: 51-year-old male states he has a history of depression along with bipolar he had a suicide attempt impassable he states over the last 5 to 6 days he been having increased irritability along with suicidal thoughts he states he had thoughts of hanging himself from a tree. He states that he realized that he needed to get help or reason to harm himself he denies any worsening proving factors he is currently not on any meds. Associated symptoms: Reports depression and suicidal ideation He was admitted to the neuropsychiatric unit for definitive treatment of those issues. He presents today reporting that he had been spending most of his time after his last discharge in [place]. He reports that he has been working and doing fairly well. He reports initially he was taking his medication but at some point he stopped taking it and he could not give any reasonable explanation for why he did that or why he has a habit of doing that. He reports that he came back to [place] for some time off and to do some camping. He reports that he started having great irritability with people around him started having some really negative thoughts about reacting to his irritability. He thought then that it was best to come to the hospital before he did something that he regretted. We discussed the risk benefits and alternatives of resuming the medications he had previously done well on and he understood and agreed to proceed as is documented in this note. An excerpt of his last discharge summary is included below for context as he was not interested in details from a history standpoint. Per his 08/27/2021 [facility] inpatient psychiatric discharge summary: Discharge Diagnosis (1) Depression with suicidal ideation: Status: Resolved (2) Suicide attempt: Status: Acute (3) Alcohol dependence, in remission: Status: Acute (4) Drug-induced psychotic disorder: Status: Acute (5) Antisocial personality disorder: Status: Chronic (6) Depressed bipolar I disorder: Status: Resolved Permanent problem details: Patient does not name and get his prescriptions filled when discharged. I am discontinuing all his meds and referring him to outpatient follow-up. Reason for Visit Reason for Visit: SI Brief History: History of Present Illness Emil Castro is a 51 year old male who presented to the emergency department the following report: Chief complaint: Psychiatric Symptoms Stated complaint: SI Time Seen by Provider: 08/23/21 19:44 History of Present Illness: HPI: [51]yo patient w/ hx of depression presenting for suicidal ideation with plan. Patient plans to hang himself and decided against the last minute and came in to the ED. On arrival, the patient is AAOx3 and cooperative with my evaluation. No focal complaints of chest pain, shortness of breath, palpitations, N/V, focal GI/ complaints. Currently denies HI. No complaints of hallucinations. Onset: acute Duration: ongoing Location: home Severity: severe Associated symptoms: Deny chest pain, dyspnea, nausea, rash, palpitations or vomiting He was admitted to the neuropsychiatric unit for definitive treatment of those issues. Patient is well-known to the unit from multiple past inpatient stays the last of which was in June. He had previously been here much more often but had been having a modicum of success followed by some recent challenges again. He reports that after his last stay he had gone to [place] and was doing fairly well and told someone on convoluted story about how he was coming back here to get his mail arranged and that he decided once he was here that he was going to go ahead and say and he went to [facility] and they were lining up a place for him to stay in the next 2 or 3 days. But then frustrations and bad choices get the best of him which led him to presenting to the hospital yesterday. He reports another problem that led to him coming his way was that he has he will get his medication for about the last month or so he would not and could not explain whether this was related to him not following through on something to get refills or some other concern. Review of the chart suggested maybe he was given refills in the left in beginning of June. Unclear why that occurred. He was indicated to moving forward, getting his own place to [facility] getting back on medication and trying to remain in the right direction. Documentation shows that he has been doing better when he comes to his addictive behavior however he reports sobriety extending back more than 6 months and I am unconvinced that that is accurate though. We discussed the risk benefits alternatives of getting his medications restarted and trying to assist him in stability on that front and he understood agreed proceed as is documented in this note. An excerpt of his June stay is included below for context. Hospital Course Hospital Course He slowly acclimated to the individual, group and milieu therapies provided.? He presented once again reporting irritability being off of medication.? We started Abilify 10 mg p.o. daily and he did allow us to initiate Abilify Maintena 400 mg IM q. monthly with a plan to switch over to Abilify Asimtufii. He continues to have challenging living arrangements.? He was desirous to go to [address] in [place] because he wanted to get back to work. ? With his medications restarted and he did have significant improvement.? He was able to contract for safety outside of the hospital prior to discharge.? During the hospitalization, patient had routine laboratory studies which were within normal limits except for few outliers.? Additionally there was a general medical evaluation which was also within normal limits and revealed no new acute processes. Discharge Summary: At the time of discharge, lethality was denied and psychosis was resolving.? Mood and anxiety were well managed.? Patient endorsed a plan to avoid all drugs of abuse and follow-up with the aftercare recommendations of the treatment team.? Patient was evaluated and deemed to be absent credible lethality, and was voluntary and denied wanting any continued inpatient hospitalization, so he was discharged. Involuntary Hold Information 96 Hour Hold: 96 Hour Involuntary Admission: No Mental Status Exam MSE Comments: This is an obese white male in hospital scrubs with appropriate grooming and adequate eye contact.? No abnormal movements except for mild psychomotor agitation.? Mostly cooperative with exam in mild distress.? Speech was increased rate and normal volume.? Mood described as better, affect congruent.? Thought process mostly organized.? Thought content: Patient endorsed resolving suicidal ideations and decreased aggressive ideation towards others, there were no delusions reported or noted, he endorsed auditory but denied visual hallucinations.? Attention and concentration were limited and memory was mostly reliable but none were formally tested.? He is alert and oriented x3.? Insight and judgment are impaired, but improving, impulse control is impaired. Discharge Data Studies Completed and Pending: Laboratory Results WBC 15.56 10^3/uL (3. 29-11.43) H 11/22/22 18:50 RBC 5.15 10^6/uL (3.8 5-5.65) 11/22/22 18:50 Hgb 17.20 g/dL (11.27 -16.99) H 11/22/22 18:50 Hct 49.6 % (37-53) 11/22/22 18:50 MCV 96.3 fl (82-101) 11/22/22 18:50 MCH 33.4 pg (27-33) H 11/22/22 18:50 MCHC 34.7 g/dL (30-55) 11/22/22 18:50 RDW 13.0 % (12.1-15.1 ) 11/22/22 18:50 Plt Count 199 10^3/cmm (157 -399) 11/22/22 18:50 MPV 11.0 fL (7.4-10.4 ) H 11/22/22 18:50 Neut % (Auto) 76.3 % 11/22/22 18:50 Lymph % (Auto) 13.2 % 11/22/22 18:50 [place] % (Auto) 8.5 % 11/22/22 18:50 Eos % (Auto) 1.0 % 11/22/22 18:50 Baso % (Auto) 0.6 % 11/22/22 18:50 Neut # (Auto) 11.85 10^3/uL (1. 8-7.7) H 11/22/22 18:50 Lymph # (Auto) 2.1 10^3/uL (0.8- 4.8) 11/22/22 18:50 [place] # (Auto) 1.3 10^3/uL (0.2- 0.9) H 11/22/22 18:50 Eos # (Auto) 0.2 10^3/uL (0.0- 0.8) 11/22/22 18:50 Baso # (Auto) 0.1 10^3/uL (0.0- 0.1) 11/22/22 18:50 Nucleated RBC % (a uto) 0 % 11/22/22 18:50 Nucleated RBCs # 0.0 /100WBC 11/22/22 18:50 Sodium 141 mmol/L (136-1 45) 11/22/22 18:50 Potassium 3.7 mmol/L (3.5-5 .1) 11/22/22 18:50 Chloride 103 mmol/L (98-10 7) 11/22/22 18:50 Carbon Dioxide 26 mmol/L (22-29) 11/22/22 18:50 Anion Gap 15.7 (5-19) 11/22/22 18:50 BUN 16 mg/dL (6-20) 11/22/22 18:50 Creatinine 0.9 mg/dL (0.7-1. 2) 11/22/22 18:50 GFR Calculation 88.3 mL/min (90-1 30) L 11/22/22 18:50 Glucose 83 mg/dL (65-115) 11/22/22 18:50 Calculated Osmolal ity 292 mOsm/kg (285- 295) 11/22/22 18:50 Calcium 9.5 mg/dL (8.5-10 .5) 11/22/22 18:50 Total Bilirubin 0.7 mg/dL (0.15-1 .2) 11/22/22 18:50 AST 26 U/L (0-40) 11/22/22 18:50 ALT 32 U/L (0-41) 11/22/22 18:50 Alkaline Phosphata se 92 U/L (40-130) 11/22/22 18:50 Total Protein 7.5 g/dL (6.6-8.7 ) 11/22/22 18:50 Albumin 4.6 g/dL (3.5-5.2 ) 11/22/22 18:50 Globulin 2.9 g/dL (1.3-4.6 ) 11/22/22 18:50 TSH 1.07 uIU/mL (0.27 -4.20) 11/22/22 18:50 Urine Color Dark yellow (Yel low) 11/22/22 18:39 Urine Appearance Clear (CLEAR) 11/22/22 18:39 Urine pH 5 (5-7) 11/22/22 18:39 Ur Specific Gravit y 1.030 (1.005-1.0 30) 11/22/22 18:39 Urine Protein Neg (Negative) 11/22/22 18:39 Urine Glucose (UA) Norm (Normal) 11/22/22 18:39 Urine Ketones Negative (Negati ve) 11/22/22 18:39 Urine Blood Neg (Negative) 11/22/22 18:39 Urine Nitrate Negative (Negati ve) 11/22/22 18:39 Urine Bilirubin Neg (Negative) 11/22/22 18:39 Urine Urobilinogen Norm mg/dL (Negat tony) 11/22/22 18:39 Ur Leukocyte Viktoria ase Negative (Negati ve) 11/22/22 18:39 Salicylates 0.8 mg/dL (3-10) L 11/22/22 18:50 Urine Opiates Scre en Negative ng/mL (N egative) 11/22/22 18:39 Acetaminophen < 5.0 ug/mL (10-3 0) L 11/22/22 18:50 Ur Barbiturates Sc reen Negative ng/mL (N egative) 11/22/22 18:39 Ur Phencyclidine S crn Negative ng/mL (N egative) 11/22/22 18:39 Ur Amphetamines Sc reen Positive ng/mL (N egative) H 11/22/22 18:39 U Benzodiazepines Scrn Negative ng/mL (N egative) 11/22/22 18:39 Urine Cocaine Scre en Negative ng/mL (N egative) 11/22/22 18:39 U Marijuana (THC) Screen Negative ng/mL (N egative) 11/22/22 18:39 Ethyl Alcohol < 10 mg/dL (0-10) 11/22/22 18:50 Vitals: Last Vital Signs Temp 97.3 F L 11/28/22 20:08 Pulse 69 11/28/22 20:08 Resp 18 11/28/22 20:08 BP 119/68 11/28/22 20:08 Pulse Ox 98 11/28/22 20:08 O2 Del Method Room Air 11/28/22 20:08 Discharge Plan Discharge Patient Disposition: Home Condition: Stable Prescriptions: Discontinued multivitamin [Daily Multi-Vitamin] Tablet 1 tab PO DAILY aspirin [Adult Low Dose Aspirin] 81 mg tablet,delayed release (DR/EC) 81 mg PO DAILY Qty: 30 1RF aripiprazole [Abilify] 15 mg tablet 15 mg PO DAILY Discharge Orders: Discharge Order (Routine); Ordered 11/29/22 Ordered By: Sam Bond Referrals: [facility] [Other] - 12/12/22 10:00 am (Intake Appointment is 10:30am is with Ana Maria Ponce. Arrive 10am to complete paperwork) [facility] 1:00 pm (Appointment is 1:20pm but arrive 1pm to complete paperwork) Discharge Diet: Regular Discharge Activity: Resume usual activity Patient Instructions: Aripiprazole (By mouth), Help Prevent Suicide (DC), Opioid Safety Discharge Attestations NPU Time Spent in Discharge Care*: less than 30 min Specific Discharge Activities: Specific discharge activities: educating patient, discussing with community case manager/social workers/dc planners, documenting/other paperwork and evaluating patient/reviewing data Status at Discharge: Cognitive status at discharge: cognitively intact , Behavioral status at discharge: cooperative , Coding Level of Care Code Acute Chg FW DC note Diagnoses Bipolar disorder with depression F31.9 Depression with suicidal ideation F32.A; R45.851 Suicide attempt T14.91XA Alcohol dependence, in remission F10.21 Drug-induced psychotic disorder F19.959 Antisocial personality disorder F60.2 Suicidal ideation R45.851 Chronic schizophrenia F20.9 Amphetamine abuse F15.10
[2022-11-29 07:24] VITALS: BP 135/86; PULSE 71; RESP 18; O2SAT 97
[2022-11-29] MEDS: ARIPiprazole 10 mg Tablet PO (07:34)
== END 2022-11-29 08:15 | disposition home or self-care (01) | DRG 885 ==
LOC: ER 21:13 → NP 22:07
PROVIDERS: Emergency Medicine; Admitting Provider Psychiatry & Neurology Psychiatry; Emergency Provider Family Medicine; Visit Provider Psychiatry & Neurology Psychiatry
DX: F31.81 Bipolar II disorder (principal); R45.851 Suicidal ideations; R45.850 Homicidal ideations; F17.200 Nicotine dependence, unspecified, uncomplicated; Z91.148 Patient's other noncompliance with medication regimen for other reason; Z59.00 Homelessness unspecified
CPT/HCPCS: 80053; 80306; 80307; 81003; 84443; 85025; 96372; 97150; 97165; 99238; 99285

== ENCOUNTER 2023-07-20 18:35 | Inpatient (IN) | payer MEDICARE, MEDICAID, SELFPAY ==
[2023-07-20 18:37] VITALS: BP 143/91; PULSE 93; RESP 16; TEMP 36.7; O2SAT 98; BMI 34.4
[2023-07-20 18:44] VITALS: BP 143/91; PULSE 93; RESP 16; O2SAT 98
--- NOTE | 2023-07-20 19:14 | ECG_ITS ---
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 Measurements Intervals [place] Rate: 92 P: 36 UT: 189 QRS: -47 QRSD: 116 T: 34 QT: 366 QTc: 454 Interpretive Statements SINUS RHYTHM PATTERN CONSISTENT WITH PULMONARY DISEASE LEFT ANTERIOR FASCICULAR BLOCK [QRS AXIS <= -45, QR IN I, RS IN II] Compared to ECG 09/12/2021 21:28:09 Left anterior fascicular block now present Intraventricular conduction delay no longer present Electronically Signed On 07-20-2023 22:31:43 CDT by Byron Jones M.D. [email or web address]
--- NOTE | 2023-07-20 19:27 | W.ED.PSYCHS ---
HPI - Psych General: Chief Complaint: Psychiatric Symptoms Stated Complaint: MHE Time Seen by Provider: 07/20/23 19:09 Source: patient Mode of arrival: ambulatory Limitations: no limitations History of Present Illness: This patient brings himself to the emergency department because he has had pervasive thoughts of harming himself. He states these began approximately 3 days ago. He states he was on a bridge and wondered if he should jump off the bridge to end his life and then all; then subsequently also thought about cutting himself with a knife he had with him to bleed out. He states that he does not know what is triggered these thoughts but is not as well felt like the birds were telling him to do some of these actions. He states that he is a recovering alcoholic and has drank a single beer but is otherwise has not been engaged in any excessive alcohol intake does not use any street drugs etc. He is not currently taking any mental health medications and is not under treatment for mental health conditions he was last seen and admitted at this facility in November 2022. Otherwise he states he has no physical complaints he denies any fevers chills cough runny nose sore throat chest pain diarrhea vomiting abdominal pains etc. He states he has been sleeping normally has no issues with his family locally and has been eating and drinking normally. MD complaint: suicidal ideation Duration: getting worse Associated symptoms: Reports auditory hallucinations, depression and suicidal ideation Review of Systems Const: Denies: fever(s) or chills Eyes: Denies: change in vision ENMT: Denies: throat pain, nasal discharge or nasal congestion Card: Denies: chest pain or palpitations Resp: Denies: dyspnea, productive cough or non-productive cough GI: Denies: abdominal pain, nausea or vomiting : Denies: flank pain, difficulty urinating or dysuria Musc: Denies: neck pain, back pain, extremity pain or extremity swelling Skin/Breast: Denies: rash Neuro: Denies: headache(s), numbness in extremities or weakness in extremities Psych: Reports: depression, auditory hallucinations and suicidal ideation; Denies: sleeping less, hopelessness or change in appetite [facility] PFSH: Medical History Bipolar disorder with depression Chronic alcohol abuse Alcohol dependence, in remission Bipolar 2 disorder Drug-induced psychotic disorder Malingering Antisocial personality disorder Social History Smoking and tobacco/nicotine status: current every day tobacco/nicotine user Physical Exam Narrative: EXAM NARRATIVE: He makes good eye contact appears to be calm speech is goal-directed and fluent. Const: COMMON NORMALS: no acute distress, average body habitus, patient oriented x3, healthy appearing and alert GENERAL APPEARANCE: cooperative and comfortable HENMT: COMMON NORMALS: normocephalic, Normal nasal mucous membranes and turbinates present and moist oral mucous membranes HEAD & SCALP: normocephalic NOSE: Normal nasal mucous membranes and turbinates present Eye: COMMON NORMALS: Equal, round and reactive pupils present and EOMs intact bilaterally PUPIL: Yes Equal, round and reactive pupils present Neck/C-Spine: COMMON NORMALS: full ROM Chest: COMMONS NORMALS: normal inspection of the chest Resp: COMMON NORMALS: normal respiratory effort, No retractions and No use of accessory muscles EFFORT & INSPECTION: Yes able to speak in complete sentences Cardio: COMMON NORMALS: regular rate and Peripheral pulses 2+ throughout RATE: regular rate PERIPHERAL PULSES: Peripheral pulses 2+ throughout GI: COMMON NORMALS: Normal to inspection, nondistended, normoactive bowel sounds present Back/Pelvis: COMMON NORMALS: thoracic and lumbar spine normal to inspection and thoraco-lumbar ROM normal Extremity: COMMON NORMALS: normal to inspection and full ROM Neuro: COMMON NORMALS: patient oriented x3, moves all extremities and no focal motor deficits SENSORIUM/ORIENTATION: Yes alert Psych: COMMON NORMALS: mental status grossly normal, Normal thought process present and speech normal ATTITUDE: Yes calm and Yes engaged ACTIVITY/MOTOR BEHAVIOR: Yes appropriate eye contact SPEECH: Yes normal speech MOOD & AFFECT: Yes depressed mood THOUGHT PROCESS: Normal thought process present THOUGHT CONTENT: Yes Suicidality present and Yes Hallucination(s) present MEMORY/COGNITION: Yes memory grossly intact INSIGHT: Fair insight present (Psych) JUDGEMENT: Fair judgement present (Psych) Skin: COMMON NORMALS: no rashes or lesions noted and turgor normal GENERAL SKIN EXAM: no rashes or lesions noted and turgor normal Course Reevaluation(s): Reevaluation #1: Patient remained stable and cooperative and amenable to admission. A affidavit for potential 96-hour hold was completed. He is stable for admission without any evidence of an ongoing medical condition that would preclude psychiatric evaluation Time: 20:22 Vital Signs: Vital signs: Vital Signs Temperature 98.0 F 07/20/23 18:37 Pulse Rate 93 07/20/23 18:44 Respiratory Rate 16 07/20/23 18:44 Blood Pressure 143/91 07/20/23 18:44 Pulse Oximetry 98 07/20/23 18:44 Oxygen Delivery Me thod Room Air 07/20/23 18:44 MDM - Psych Medical Decision Making This gentleman presented himself voluntarily to the emergency department because of concerns about increasing suicidal thoughts over the past 3 days. Associated auditory hallucinations and continues to harbor generalized anger. No current substance abuse and or legal implications admitted by the patient. He had no review of systems and suggested a ongoing medical condition that might be contributing to his current presentation. His clinical examination was unremarkable physically and his mental health examination revealed him to be cooperative and calm but still admits to suicidality. Screening laboratories are reassuring. Discussed with the consulting psychiatrist who agreed admit the patient for further evaluation. He was placed on a 96-hour hold as a protective measure. Medical Records I reviewed the patient's medical records. Past mental health admission in November 2022 Lab Data I reviewed the patient's lab results. 07/20/23 19:07/20/23 19: Laboratory Results WBC 10.22 10^3/uL (3.29-11.43) 07/20/23 19: RBC 4.70 10^6/uL (3.85-5.65) 07/20/23 19: Hgb 15.40 g/dL (11.27-16.99) 07/20/23 19: Hct 45.3 % (37-53) 07/20/23 19: MCV 96.4 fl (82-101) 07/20/23 19: MCH 32.8 pg (27-33) 07/20/23 19: MCHC 34.0 g/dL (30-55) 07/20/23 19: RDW 12.6 % (12.1-15.1) 07/20/23 19: Plt Count 178 10^3/cmm (157-399) 07/20/23 19: MPV 10.3 fL (7.4-10.4) 07/20/23 19: Neut % (Auto) 60.8 % 07/20/23 19: Lymph % (Auto) 23.9 % 07/20/23 19:27 [place] % (Auto) 9.3 % 07/20/23 19: Eos % (Auto) 4.7 % 07/20/23 19: Baso % (Auto) 1.0 % 07/20/23 19: Neut # (Auto) 6.22 10^3/uL (1.8-7.7) 07/20/23 19: Lymph # (Auto) 2.4 10^3/uL (0.8-4.8) 07/20/23 19: [place] # (Auto) 1.0 10^3/uL (0.2-0.9) H 07/20/23: Eos # (Auto) 0.5 10^3/uL (0.0-0.8) 07/20/23: Baso # (Auto) 0.1 10^3/uL (0.0-0.1) 07/20/23: Nucleated RBC % (auto) 0 % 07/20/23 19: Nucleated RBCs # 0.0 /100WBC 07/20/23 19: Sodium 137 mmol/L (136-145) 07/20/23 19: Potassium 4.0 mmol/L (3.5-5.1) 07/20/23: Chloride 100 mmol/L (98-107) 07/20/23: Carbon Dioxide 27 mmol/L (22-29) 07/20/23: Anion Gap 14.0 (5-19) 07/20/23 19: BUN 17 mg/dL (6-20) 07/20/23 19: Creatinine 0.8 mg/dL (0.7-1.2) 07/20/23: GFR Calculation 100.7 mL/min (90-130) 07/20/23: Glucose 103 mg/dL (65-115) 07/20/23 19: Calculated Osmolality 286 mOsm/kg (285-295) 07/20/23: Calcium 8.2 mg/dL (8.5-10.5) L 07/20/23: Total Bilirubin 0.3 mg/dL (0.15-1.2) 07/20/23 19: AST 30 U/L (0-40) 07/20/23 19: ALT 36 U/L (0-41) 07/20/23 19:27 Alkaline Phosphatase 83 U/L (40-130) 07/20/23 19:27 Total Protein 7.1 g/dL (6.6-8.7) 07/20/23 19: Albumin 4.4 g/dL (3.5-5.2) 07/20/23 19: Globulin 2.7 g/dL (1.3-4.6) 07/20/23 19:27 Salicylates < 0.3 mg/dL (3-10) L 07/20/23 19:27 Urine Opiates Screen Negative ng/mL (Negative) 07/20/23 19:15 Acetaminophen < 5.0 ug/mL (10-30) L 07/20/23 19:27 Ur Barbiturates Screen Negative ng/mL (Negative) 07/20/23 19:15 Ur Phencyclidine Scrn Negative ng/mL (Negative) 07/20/23 19:15 Ur Amphetamines Screen Negative ng/mL (Negative) 07/20/23 19:15 U Benzodiazepines Scrn Negative ng/mL (Negative) 07/20/23 19:15 Urine Cocaine Screen Negative ng/mL (Negative) 07/20/23 19:15 U Marijuana (THC) Screen Negative ng/mL (Negative) 07/20/23 19:15 No radiology studies performed this visit EKG Data EKG 1: I personally reviewed and interpreted this EKG as follows: Interpretation: Resting EKG reveals a ventricular rate of 92 bpm. Normal TX interval, QRS duration, corrected QT interval. Leftward axis consistent with a left anterior Heema block. No acute ST-T wave changes noted. 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
[2023-07-20 19:33] LABS: Basophils # 0.1 10^3/uL (0.0-0.1); Eosinophils # 0.5 10^3/uL (0.0-0.8); Eosinophils % 4.7 %; Hematocrit 45.3 % (37-53); Lymphocytes # 2.4 10^3/uL (0.8-4.8); Lymphocytes % 23.9 %; Mean Corpuscular Hemoglobin 32.8 pg (27-33); Mean Corpuscular Volume 96.4 fl (82-101); Mean Platelet Volume 10.3 fL (7.4-10.4); Monocytes % 9.3 %; Neutrophils # 6.22 10^3/uL (1.8-7.7); Neutrophils % 60.8 %; Nucleated Red Blood Cells % 0 %; Platelet Count 178 10^3/cmm (157-399); Red Cell Distribution Width 12.6 % (12.1-15.1); White Blood Count 10.22 10^3/uL (3.29-11.43)
[2023-07-20 19:43] LABS: Amphetamines Screen Urine Negative (Negative); Barbiturates Screen Urine Negative (Negative); Benzodiazepines Screen Urine Negative (Negative); Cocaine Screen Urine Negative (Negative); Opiate Screen Urine Negative (Negative); PCP Screen Urine Negative (Negative); THC Screen Urine Negative (Negative)
[2023-07-20 19:54] LABS: Alanine Aminotransferase 36 U/L (0-41); Albumin Level 4.4 g/dL (3.5-5.2); Alkaline Phosphatase 83 U/L (40-130); Aspartate Amino Transferase 30 U/L (0-40); Blood Urea Nitrogen 17 mg/dL (6-20); Calcium 8.2 mg/dL (8.5-10.5); Carbon Dioxide 27 mmol/L (22-29); Chloride 100 mmol/L (98-107); Creatinine Clr Calc Pharmacy 138.3238; Globulin 2.7 g/dL (1.3-4.6); Glomerular Filtration Rate 100.7 mL/min (90-130); Glucose 103 mg/dL (65-115); Osmolality Calculated 286 mOsm/kg (285-295); Sodium 137 mmol/L (136-145); Total Bilirubin 0.3 mg/dL (0.15-1.2); Total Protein 7.1 g/dL (6.6-8.7)
[2023-07-20 19:59] LABS: Acetaminophen < 5.0 ug/mL (10-30); Salicylate < 0.3 mg/dL (3-10)
[2023-07-20 20:18] VITALS: BP 141/77; PULSE 92; RESP 18; TEMP 36.3; O2SAT 97
--- NOTE | 2023-07-20 20:40 | PC.NURSE ---
Patient served 96hr paperwork at this time with Anny from [email or web address]. Patient accepted copy of rights and all questions answered. Patient encouraged to voice any concerns or further questions if they occur.
[2023-07-20 21:02] LABS: Alcohol Level < 10 mg/dL (0-10)
[2023-07-20 21:52] VITALS: BP 141/77; PULSE 92; RESP 18; TEMP 36.3; O2SAT 97
[2023-07-20 22:00] VITALS: BP 141/77; PULSE 92; RESP 18; TEMP 36.3; O2SAT 97
[2023-07-20] MEDS: trazodone 50 mg Tablet PO (22:40)
[2023-07-20] MEDS: hyDROXYzine 25 mg Capsule 50 MG PO (22:40)
[2023-07-20] MEDS: nicotine 4 mg lozenge MUCOUS MEM (22:41)
[2023-07-21 06:00] VITALS: BP 127/83; PULSE 66; RESP 18; TEMP 36.4; O2SAT 97
[2023-07-21] MEDS: hyDROXYzine 25 mg Capsule 50 MG PO (08:17)
[2023-07-21] MEDS: nicotine 4 mg lozenge MUCOUS MEM ×3 (11:28→17:52)
[2023-07-21 14:00] VITALS: BP 133/90; PULSE 87; RESP 20; TEMP 36.6; O2SAT 98
--- NOTE | 2023-07-21 14:04 | W.PM.NPUH&PS ---
Providers/Chief Complaint Admitting Physician: Arash Crowley MD Chief Complaint: MHE HPI NPU History of Present Illness Emil aCstro is a 53 year old male with a previous history of bipolar disorder and otherwise specified, and schizophrenia along with methamphetamine abuse who presented to the emergency department with reoccurring thoughts about wanting to harm himself and had been gone 3 days ago. He had stated that he began to hear birds that were telling him to jump off of a bridge. He had reported that he had been abstaining from the use of alcohol for several months but had relapsed and had consumed 1 single beer. He reported no recent use of methamphetamine and his urine drug screen was negative on arrival here. He had reported that he was having some thoughts of cutting himself with a knife and states that he reports that he had stopped all of his medications for several months. He reports having frequent mood swings. He had endorsed a history of having racing thoughts. He reports that he has been distracted by his thoughts. He had reported having thoughts of others trying to harm him and stated that he was generally distrustful of others. He reports some difficulties with concentration. 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 but reports that his mood had been worse since his discontinuation of his medications. Patient had reported no substantiative changes since his last hospitalization in November 2022. Psychiatric History: none currently, no outpatient follow ups, no new inpatient hospitalizations noted Current medications: none (previous medications include Abilify Maintena monthly, Abilify 15mg orally, NPU Discharge Summary from 11/29/22: History of Present Illness Emil Castro is a 52 year old male who presented to the emergency department with the following report: Chief Complaint: Psychiatric Symptoms Stated Complaint: SI Time Seen by Provider: 11/22/22 19:07 History of Present Illness: 52-year-old male with history of mood disorder and currently noncompliant with his medication presents emergency room with vague complaint of homicidal and suicidal ideation for the past few weeks. Patient reveals that he wants to shoot himself in the head and anticoagulant was attacking him. Patient denies any nausea, vomiting, chest pain, shortness of breath. Patient reveals that he is hearing voices from the birds. Associated symptoms: Reports auditory hallucinations, homicidal ideation and suicidal ideation; Deny visual hallucinations or delusions. He was admitted to the neuropsychiatric unit for definitive treatment of those issues. 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 He presents as he generally has recently with suicidal versus homicidal ideation and with limited resources off of medication. He presents [place] to manage things air without significant resources he reports he has been off his medication for some time but gives no real indicator of what led to that change. He was last seen here 6 weeks ago and has continued struggles with ayan stability, housing and direction for that matter. He presents today without irritability which is a common factor in his presentations. He reports a desire to get assistance resuming his medication but when we talked about things like the ERE program and a stronger [facility] presence, he was fairly ambivalent about that kind of increased resources. We discussed the risks, benefits and alternatives of restarting his Abilify at an appropriate dose and he understood agreed to proceed as documented in this note. We broached the subject of the possibility of a long-acting injection. An excerpt of his 10/08/2022 discharge summary is included below for context. Per his 10/08/2022 [facility] inpatient psychiatric discharge summary: Discharge Diagnosis (1) Bipolar disorder with depression: Status: Acute (2) Depression with suicidal ideation: Status: Resolved (3) Suicide attempt: Status: Acute (4) Alcohol dependence, in remission: Status: Acute (5) Drug-induced psychotic disorder: Status: Inactive (6) Antisocial personality disorder: Status: Inactive Reason for Visit Reason for Visit: SI Brief History: History of Present Illness Emil Castro is a 52 year old male who presented to the emergency department with the following report: Chief Complaint: Psychiatric Symptoms Stated Complaint: SI Time Seen by Provider: 10/02/22 11:11 Source: patient Mode of arrival: ambulatory History of Present Illness: 52-year-old male presents emergency room with complaint of suicidal ideations racing thoughts some hallucinations. Patient has a history of alcoholism as well as bipolar disorder. He states he stopped taking all of his medicines 5 or 6 months ago however he was hospitalized in early May of this year. He was discharged on May 08 and then readmitted on May 18. He did admit to drinking this morning he is still mildly agitated but not confrontational easily redirected. He cannot give me a specific reason as to why he stopped his medications. He did not particularly identify side effects he does states he did not get them refilled MD complaint: suicidal ideation Onset (ago): day(s) Duration: changing over time and getting worse History of same: Yes Relieving factors: none Exacerbating factors: alcohol Context: recent alcohol abuse Associated psychiatric symptoms: none Associated symptoms: Deny auditory hallucinations, visual hallucinations, delusions, depression, homicidal ideation, suicidal ideation or racing thoughts Treatments prior to arrival: none If self harm: admits thoughts of self harm and has plan. He was admitted to the neuropsychiatric unit for definitive treatment of those issues. Patient presents today much like he is presented recently. UDS was unremarkable with no noted active drug use. This is in jackson contrast to his presentations 2+ years ago such that he was very agitated by the question about addiction. We discussed the fact that this is part of our normal screening questions. Which did seem to settle help. He presented quite agitated and not very open to questioning endorsing that this irritability is the reason that he came to the hospital. Reporting that he is finding himself to be quite easily agitated. He reports that after his May hospitalization he discontinued the medication. He reports that he went and got a job but then all that fell apart. We discussed the issue with the medication and why he discontinued it and he reports that the Seroquel which previously was a stable and standard medication in his regimen made him too tired and unable to function. He reported an openness to a trial of a new medication and we discussed the risks, benefits and alternatives of starting Abilify 10 mg p.o. daily and he understood and agreed to proceed as is documented in this note. Otherwise he reported being homeless and having no real options and needing something to help with his agitation. An excerpt of his May 2022 hospitalization is included below for historical context. Per his 05/30/2022 [facility] inpatient psychiatric discharge summary: Discharge Diagnosis (1) Depression with suicidal ideation: Status: Resolved (2) Suicide attempt: Status: Acute (3) Alcohol dependence, in remission: Status: Acute (4) Drug-induced psychotic disorder: Status: Inactive (5) Antisocial personality disorder: Status: Chronic (6) Depressed bipolar I disorder: Status: Resolved Permanent problem details: Patient does not name and get his prescriptions filled when discharged. I am discontinuing all his meds and referring him to outpatient follow-up. Reason for Visit Reason for Visit: SI,MHE Brief History: History of Present Illness Emil Castro is a 51 year old male who presented to the emergency part with the following report: Chief Complaint: Psychiatric Symptoms Stated Complaint: SI,MHE Time Seen by Provider: 05/17/22 17:36 Source: patient Mode of arrival: ambulatory Limitations: no limitations History of Present Illness: Patient is a 51-year-old male who is well-known to the emergency department here yet again for complaints of suicidal ideations, homicidal ideations, auditory hallucinations, and aggression/anger outbursts. Patient has had multiple NPU admissions over the past few months. Patient states he never has followed up with [facility] or a primary care provider after his discharges. Patient states he is taking his prescribed medications. He continues to drink alcohol. States he has a plan to hang himself with a rope. He states he feels homicidal towards men in general and sometimes wants to slit their throats. MD complaint: suicidal ideation and other (anger/agression, HI, auditory hallucinations) Duration: constant History of same: Yes Relieving factors: none Exacerbating factors: none Context: recent alcohol abuse Associated psychiatric symptoms: depression, suicidal ideation, homicidal ideation and auditory hallucinations Associated symptoms: Reports auditory hallucinations, depression, homicidal ideation and suicidal ideation; Deny visual hallucinations Treatments prior to arrival: none If self harm: admits thoughts of self harm and has plan. He was admitted to the Neuropsych Unit for definitive treatment of issues. He presents like he has recently with significant irritability reporting concerned he is going to hurt someone. He reported that his medication based on his discharge functioning that seems unlikely. However he continues significant difficulties with his housing and managing resources. The fairly distant story reporting openness to continue medication but not expressing any clarity as what he was to do next. We discussed working with treatment team on Friday to start to look more viable and sustainable housing and resources, which she agrees with but not emphatically. We agreed to restart his medication and see how he does with regular administration and probably consider increasing his bedtime Seroquel and he understood agreed to proceed as is documented in this note Per his 05/08/2022 [facility] inpatient psychiatric discharge summary: SI Brief History: History of Present Illness Emil Castro is a 51 year old male who presented to the emergency department with the following report: Chief Complaint: Psychiatric Symptoms Stated Complaint: SI Time Seen by Provider: 05/01/22 19:21 Source: patient Mode of arrival: ambulatory Limitations: no limitations History of Present Illness: 51-year-old male states he has a history of depression along with bipolar he had a suicide attempt impassable he states over the last 5 to 6 days he been having increased irritability along with suicidal thoughts he states he had thoughts of hanging himself from a tree. He states that he realized that he needed to get help or reason to harm himself he denies any worsening proving factors he is currently not on any meds. Associated symptoms: Reports depression and suicidal ideation He was admitted to the neuropsychiatric unit for definitive treatment of those issues. He presents today reporting that he had been spending most of his time after his last discharge in [place]. He reports that he has been working and doing fairly well. He reports initially he was taking his medication but at some point he stopped taking it and he could not give any reasonable explanation for why he did that or why he has a habit of doing that. He reports that he came back to [place] for some time off and to do some camping. He reports that he started having great irritability with people around him started having some really negative thoughts about reacting to his irritability. He thought then that it was best to come to the hospital before he did something that he regretted. We discussed the risk benefits and alternatives of resuming the medications he had previously done well on and he understood and agreed to proceed as is documented in this note. An excerpt of his last discharge summary is included below for context as he was not interested in details from a history standpoint. Per his 08/27/2021 [facility] inpatient psychiatric discharge summary: Discharge Diagnosis (1) Depression with suicidal ideation: Status: Resolved (2) Suicide attempt: Status: Acute (3) Alcohol dependence, in remission: Status: Acute (4) Drug-induced psychotic disorder: Status: Acute (5) Antisocial personality disorder: Status: Chronic (6) Depressed bipolar I disorder: Status: Resolved Permanent problem details: Patient does not name and get his prescriptions filled when discharged. I am discontinuing all his meds and referring him to outpatient follow-up. Reason for Visit Reason for Visit: SI Brief History: History of Present Illness Emil Castro is a 51 year old male who presented to the emergency department the following report: Chief complaint: Psychiatric Symptoms Stated complaint: SI Time Seen by Provider: 08/23/21 19:44 History of Present Illness: HPI: [51]yo patient w/ hx of depression presenting for suicidal ideation with plan. Patient plans to hang himself and decided against the last minute and came in to the ED. On arrival, the patient is AAOx3 and cooperative with my evaluation. No focal complaints of chest pain, shortness of breath, palpitations, N/V, focal GI/ complaints. Currently denies HI. No complaints of hallucinations. Onset: acute Duration: ongoing Location: home Severity: severe Associated symptoms: Deny chest pain, dyspnea, nausea, rash, palpitations or vomiting He was admitted to the neuropsychiatric unit for definitive treatment of those issues. Patient is well-known to the unit from multiple past inpatient stays the last of which was in June. He had previously been here much more often but had been having a modicum of success followed by some recent challenges again. He reports that after his last stay he had gone to [place] and was doing fairly well and told someone on convoluted story about how he was coming back here to get his mail arranged and that he decided once he was here that he was going to go ahead and say and he went to [employer] action and they were lining up a place for him to stay in the next 2 or 3 days. But then frustrations and bad choices get the best of him which led him to presenting to the hospital yesterday. He reports another problem that led to him coming his way was that he has he will get his medication for about the last month or so he would not and could not explain whether this was related to him not following through on something to get refills or some other concern. Review of the chart suggested maybe he was given refills in the left in beginning of June. Unclear why that occurred. He was indicated to moving forward, getting his own place to [employer] action getting back on medication and trying to remain in the right direction. Documentation shows that he has been doing better when he comes to his addictive behavior however he reports sobriety extending back more than 6 months and I am unconvinced that that is accurate though. We discussed the risk benefits alternatives of getting his medications restarted and trying to assist him in stability on that front and he understood agreed proceed as is documented in this note. An excerpt of his June stay is included below for context. Hospital course 05/08/22 : He slowly acclimated to the individual, group and milieu therapies provided. He presented reporting irritability being off of medication. Seroquel was started at bedtime and 2 daytime doses were added. He was titrated up to 50 mg twice a day and 100 milligrams at night. He continues to have challenging living successes at home is becoming factor. He dorsoplantar this maneuver he has had some success. With his medications restarted and he did have significant improvement. He was able to contract for safety outside of the hospital prior to discharge. During the hospitalization, patient had routine laboratory studies which were within normal limits except for few outliers. Additionally there was a general medical evaluation which was also within normal limits and revealed no new acute processes. Discharge Summary: At the time of discharge, lethality was denied and psychosis was resolving. Mood and anxiety were well managed. Patient endorsed a plan to avoid all drugs of abuse and follow-up with the aftercare recommendations of the treatment team. Patient was evaluated and deemed to be absent credible lethality, and was voluntary and denied wanting any continued inpatient hospitalization, so he was discharged. Hospital Course 05/30/22: Discharge Summary: During the hospitalization, patient had routine laboratory studies which were within normal limits except for few outliers. Additionally there was a general medical evaluation which was also within normal limits and revealed no new acute processes. At the time of discharge, lethality was denied and psychosis was resolving. Mood and anxiety were well managed. Patient endorsed a plan to avoid all drugs of abuse and follow-up with the aftercare recommendations of the treatment team. Patient was evaluated and deemed to be absent credible lethality, and had achieved the maximum benefit from an inpatient hospitalization, so was discharged. Hospital Course During the hospitalization, the patient had routine laboratory studies which were within normal limits except for a few outliers. Additionally, there was a general medical evaluation which was also within normal limits and revealed no new acute processes. At the time of discharge, lethality was denied and psychosis was resolving. Mood and anxiety were well managed. The patient endorsed a plan to avoid all drugs of abuse and follow up with the aftercare recommendations of the treatment team. The patient was evaluated and deemed to be absent credible lethality and had achieved the maximum benefit from an inpatient hospitalization, and so was discharged. Meds NPU Home Medications Medication Instructions Recorded Confirmed Last Taken Type No Known Home Medications 07/20/23 07/20/23 Unknown History Allergies Allergy/AdvReac Type Severity Reaction Status Date / Time Penicillins Allergy ALGY-Hives Verified 11/22/22 18:19 PFSH NPU PFSH: Medical History Bipolar disorder with depression Chronic alcohol abuse Alcohol dependence, in remission Bipolar 2 disorder Drug-induced psychotic disorder Malingering Antisocial personality disorder Social History Smoking and tobacco/nicotine status: current every day tobacco/nicotine user Mental Status Exam MSE Comments: This is an obese white male in hospital scrubs with appropriate grooming and adequate eye contact.? No abnormal movements except for moderate psychomotor agitation.? He was partially cooperative with exam in moderate distress.? Speech was normal in rate and increased in volume.? Mood described as upset. His affect was irritable.? Thought process was mostly organized.? Thought content: Patient endorsed suicidal ideation and denied homicidal ideation. There were no delusions reported or noted, he endorsed auditory hallucinations of hearing birds but denied visual hallucinations.? Attention and concentration were limited and memory was mostly reliable but none were formally tested.? He is alert and oriented x3.? Insight was minimal and judgment is impaired. Impulse control is impaired. Vitals/I&O/Wt Last Vital Signs Temp 97.5 F L 07/21/23 06:00 Pulse 66 07/21/23 06:00 Resp 18 07/21/23 06:00 BP 127/83 07/21/23 06:00 Pulse Ox 97 07/21/23 06:00 O2 Del Method Room Air 07/20/23 23:04 Weight last 48 hrs Weight 115.212 kg Data NPU 07/20/23 19:27 07/20/23 19:27 A&P Assessment and plan (1) Bipolar disorder with depression: (2) Depression with suicidal ideation: (3) Chronic schizophrenia: (4) Suicide attempt: (5) Alcohol dependence, in remission: (6) Antisocial personality disorder: (7) Suicidal ideation: (8) Amphetamine abuse: Plan This is a 52-year-old white male with a long history of multiple inpatient hospitalizations often with concerns for malingering who presents today reporting that he has not been taking his medication but but struggling with resources, homelessness and aggressive/suicidal/homicidal feelings and ideations. 1. Restarted Abilify 10 mg p.o. daily Reordered Abilify Maintena 400 mg IM q. monthly tommorow. 2. To-15 minute checks, 3.? Encourage individual, group and milieu therapy. 4.? Encourage sober living treatment after discharge at the highest level of care to which he is willing to commit.? 5. Will attempt to gather collateral information. Involuntary Hold Information 96 Hour Hold: 96 Hour Involuntary Admission: Yes 96 Hour Hold Ending Date: 07/25/23 96 Hour Hold Ending Time: 00:01 Attestations NPU Medical Necessity Statement*: Inpatient hospitalization is medically necessary and deemed to ?be ?the clinically appropriate intervention ?at this time.? We will monitor/initiate medications and make changes as indicated.? The patient will be in the hospital for over 2 midnights.? The patient?s likely length of stay 5-7 days. Coding Level of Care Code Acute Code for [facility] Fwd Diagnoses Bipolar disorder with depression F31.9 Depression with suicidal ideation F32.A; R45.851 Chronic schizophrenia F20.9 Suicide attempt T14.91XA Alcohol dependence, in remission F10.21 Antisocial personality disorder F60.2 Suicidal ideation R45.851 Amphetamine abuse F15.10
[2023-07-21] MEDS: OLANZapine 5 mg ODT PO (14:44)
--- NOTE | 2023-07-21 14:45 | PC.NURSE ---
Patient requesting medication for anger . This nurse administered zyprexa 5mg ODT to patient.
[2023-07-21] MEDS: ARIPiprazole 10 mg Tablet PO (17:51)
[2023-07-21] MEDS: trazodone 50 mg Tablet PO (20:05)
[2023-07-21 22:00] VITALS: BP 125/74; PULSE 71; RESP 15; TEMP 36.7; O2SAT 95
[2023-07-22] MEDS: acetaminophen 325 mg Tablet 650 MG PO ×2 (02:59→08:34)
[2023-07-22 06:00] VITALS: BP 126/88; PULSE 82; RESP 15; TEMP 36.3; O2SAT 97
[2023-07-22] MEDS: nicotine 4 mg lozenge MUCOUS MEM ×4 (08:19→17:54)
[2023-07-22] MEDS: ARIPiprazole 10 mg Tablet PO (08:19)
[2023-07-22 14:00] VITALS: BP 133/83; PULSE 89; RESP 20; TEMP 36.6; O2SAT 98
--- NOTE | 2023-07-22 14:20 | P.NPUPN_ITS ---
Subjective NPU 2 Subjective: 53-year-old male with history of schizop hrenia, bipolar disorder and otherwise specified along with polysubstance abuse admitted with suicidal ideation and complaints of auditory hallucinations. He had reported that his depression had remained substantial. He had stated that he continued to have thoughts about jumping off a bridge. He had reported that he had done well previously with the Abilify and had confirmed that he likely has a warrant for his arrest. He had reported having difficulties with falling asleep. He had reported that he has problems with managing his anger and reports that he had not been compliant with his medication for several months. Patient was redirectable on the milieu but continued to isolate himself. Mental Status Exam 2 MSE Comments: This is an obese white male in hospital scrubs with appropriate grooming and adequate eye contact.? No abnormal movements except for mild psychomotor agitation.? He was partially cooperative with exam in moderate distress.? Speech was normal in rate and increased in volume.? Mood described as angry. His affect was irritable and mood incongruent. ? Thought process was mostly organized.? Thought content: Patient endorsed suicidal ideation and denied homicidal ideation. There were no delusions reported or noted, he endorsed auditory hallucinations of hearing birds but denied visual hallucinations.? Attention and concentration were limited and memory was mostly reliable but none were formally tested.? He is alert and oriented x3.? Insight was minimal and judgment is impaired. Impulse control is impaired. Vitals/I&O/Wt Last Vital Signs Temp 97.4 F L 07/22/23 06:00 Pulse 82 07/22/23 06:00 Resp 15 07/22/23 06:00 BP 126/88 07/22/23 06:00 Pulse Ox 97 07/22/23 06:00 O2 Del Method Room Air 07/22/23 06:00 Weight last 48 hrs Weight 115.212 kg Data NPU 07/20/23 19:27 07/20/23 19:27 A&P Assessment and plan (1) Bipolar disorder with depression: (2) Depression with suicidal ideation: (3) Chronic schizophrenia: (4) Suicide attempt: (5) Alcohol dependence, in remission: (6) Antisocial personality disorder: (7) Suicidal ideation: (8) Amphetamine abuse: Plan This is a 52-year-old white male with a long history of multiple inpatient hospitalizations often with concerns for malingering who presents today reporting that he has not been taking his medication but but struggling with resources, homelessness and aggressive/suicidal/homicidal feelings and ideations. 1. Increase Abilify 15 mg p.o. daily Abilify Maintena 400 mg IM given today. 2. To-15 minute checks, 3.? Encourage individual, group and milieu therapy. 4.? Encourage sober living treatment after discharge at the highest level of care to which he is willing to commit.? 5. Will attempt to gather collateral information. Involuntary Hold Information 2 96 Hour Hold: 96 Hour Involuntary Admission: Yes 96 Hour Hold Ending Date: 07/25/23 96 Hour Hold Ending Time: 00:01 Attestations NPU 2 Medical Necessity Statement*: Inpatient hospitalization is medically necessary and deemed to ?be ?the clinically appropriate intervention ?at this time.? We will monitor/initiate medications and make changes as indicated.? ? The patient?s likely length of stay 5-7 days. Coding Level of Care Code Acute Code for [facility] Fwd Diagnoses Bipolar disorder with depression F31.9 Depression with suicidal ideation F32.A; R45.851 Chronic schizophrenia F20.9 Suicide attempt T14.91XA Alcohol dependence, in remission F10.21 Antisocial personality disorder F60.2 Suicidal ideation R45.851 Amphetamine abuse F15.10
[2023-07-22] MEDS: ARIPiprazole Maintena 400 MG IM (14:49)
--- NOTE | 2023-07-22 14:54 | PC.NURSE ---
Administered Abilify Maintena 400mg IM into patient's right deltoid muscle. Patient tolerated well. Lot:[id number] EXP:NOV 2025
[2023-07-22] MEDS: OLANZapine 5 mg ODT PO (17:37)
--- NOTE | 2023-07-22 17:51 | PC.NURSE ---
Patient reports feeling anger and hostility, requesting medication to help alleviate these feelings. This nurse administered zyprexa 5mg ODT. Patient unable to give a reason for these current feelings.
[2023-07-22 20:18] VITALS: BP 147/81; PULSE 108; RESP 16; TEMP 36.7; O2SAT 98
[2023-07-22] MEDS: trazodone 50 mg Tablet PO (23:31)
[2023-07-23 06:00] VITALS: BP 120/72; PULSE 83; RESP 16; O2SAT 99
[2023-07-23] MEDS: nicotine 4 mg lozenge MUCOUS MEM ×5 (06:35→17:43)
[2023-07-23] MEDS: acetaminophen 325 mg Tablet 650 MG PO ×2 (06:37→16:55)
[2023-07-23] MEDS: ARIPiprazole 10 mg Tablet 15 MG PO (08:07)
[2023-07-23 14:00] VITALS: BP 140/94; PULSE 89; RESP 17; TEMP 36.8; O2SAT 99
[2023-07-23] MEDS: hyDROXYzine 25 mg Capsule 50 MG PO (16:55)
--- NOTE | 2023-07-23 17:17 | P.NPUPN_ITS ---
Subjective NPU 2 Subjective: 53-year-old male with history of schizop hrenia, bipolar disorder and otherwise specified along with polysubstance abuse admitted with suicidal ideation and complaints of auditory hallucinations. He continued endorse hallucinations. He had continued to report having problems with socializing with others and stated that he wished to be by himself. He had reported that he was feeling a little bit better. He had reported being angered easily. He had stated that the Abilify had been helpful in the past and he would continue to take this medication on an outpatient basis. He had reported some difficulties with falling asleep last trazodone at night. He stated that he had a warrant for his arrest and would need to go to [place] to correct this upon discharge. He reported insomnia and frequent awakenings at night. Mental Status Exam 2 MSE Comments: This is an obese white male in hospital scrubs with appropriate grooming and adequate eye contact.? No abnormal movements except for mild psychomotor agitation.? He was partially cooperative with exam in moderate distress.? Speech was normal in rate and increased in volume.? Mood described as angry. His affect was irritable and mood incongruent. ? Thought process was mostly organized.? Thought content: Patient endorsed suicidal ideation and denied homicidal ideation. There were no delusions reported or noted, he endorsed fleeting auditory hallucinations and denied visual hallucinations. Attention and concentration were limited and memory was mostly reliable but none were formally tested.? He is alert and oriented x3.? Insight was poor and judgment is impaired. Impulse control is poor. Vitals/I&O/Wt Last Vital Signs Temp 98.2 F 07/23/23 14:00 Pulse 89 07/23/23 14:00 Resp 17 07/23/23 14:00 BP 140/94 07/23/23 14:00 Pulse Ox 99 07/23/23 14:00 O2 Del Method Room Air 07/22/23 06:00 Data NPU 07/20/23 19:27 07/20/23 19:27 A&P Assessment and plan (1) Bipolar disorder with depression: (2) Depression with suicidal ideation: (3) Chronic schizophrenia: (4) Suicide attempt: (5) Alcohol dependence, in remission: (6) Antisocial personality disorder: (7) Suicidal ideation: (8) Amphetamine abuse: Plan This is a 52-year-old white male with a long history of multiple inpatient hospitalizations often with concerns for malingering who presents today reporting that he has not been taking his medication but but struggling with resources, homelessness and aggressive/suicidal/homicidal feelings and ideations. 1. Continue Abilify 15 mg p.o. daily Abilify Maintena 400 mg IM given today. Add Trazodone 100mg at night for sleep. 2. To-15 minute checks, 3.? Encourage individual, group and milieu therapy. 4.? Encourage sober living treatment after discharge at the highest level of care to which he is willing to commit.? 5. Will attempt to gather collateral information. Involuntary Hold Information 2 96 Hour Hold: 96 Hour Involuntary Admission: Yes 96 Hour Hold Ending Date: 07/25/23 96 Hour Hold Ending Time: 00:01 Attestations NPU 2 Medical Necessity Statement*: Inpatient hospitalization is medically necessary and deemed to ?be ?the clinically appropriate intervention ?at this time.? We will monitor/initiate medications and make changes as indicated.? ? The patient?s likely length of stay 3-5 days. Coding Level of Care Code Acute Code for g Fwd Diagnoses Bipolar disorder with depression F31.9 Depression with suicidal ideation F32.A; R45.851 Chronic schizophrenia F20.9 Suicide attempt T14.91XA Alcohol dependence, in remission F10.21 Antisocial personality disorder F60.2 Suicidal ideation R45.851 Amphetamine abuse F15.10
[2023-07-23] MEDS: trazodone 100 mg Tablet PO (21:02)
[2023-07-23 21:25] VITALS: BP 105/71; PULSE 84; RESP 16; TEMP 36.7; O2SAT 95
[2023-07-24 06:00] VITALS: BP 126/81; PULSE 91; RESP 17; TEMP 36.4; O2SAT 97
[2023-07-24] MEDS: nicotine 4 mg lozenge MUCOUS MEM ×6 (06:38→19:36)
[2023-07-24] MEDS: ARIPiprazole 10 mg Tablet 15 MG PO (08:39)
--- NOTE | 2023-07-24 08:59 | PC.NURSE ---
PT DENIES PAIN. DENIES SI/HI AND AVH AT THIS TIME. RATES ANXIETY 0/10 AND DEPRESSION 5/10. PT CONTINUES TO COMPLY WITH MEDICATION REGIMEN. GOAL FOR THE DAY IS TO STAY CLEAN AND SOBER. PT STATES HE SLEPT WELL.. ALL QUESTIONS ANSWERED AND SUPPORT VOICED.
[2023-07-24 13:57] VITALS: BP 133/85; PULSE 115; RESP 17; TEMP -12.3; TEMP 9.8; O2SAT 95
--- NOTE | 2023-07-24 14:52 | W.PM.NPUPNS ---
Subjective NPU Subjective: 53-year-old male with history of schizophrenia, bipolar disorder and otherwise specified along with polysubstance abuse admitted with suicidal ideation and complaints of auditory hallucinations. He reported feeling less angry but continued to endorse hallucinations. He reported still having difficulties falling asleep and staying asleep. He had reported that he would go back to [place] to stay with a friend when discharged as he had stated that he would need to turn himself in [place] for violation of probation issues. He was redirectable on the unit. He had reported continued desire to be by himself. He had reported having extended history of problems with anger but stated that he had felt calmer since taking the Abilify and the intramuscular IM Abilify given earlier this week. Mental Status Exam MSE Comments: This is an obese white male in hospital scrubs with appropriate grooming and adequate eye contact.? No abnormal movements except for mild psychomotor retardation today.? He was mostly cooperative with exam in mild distress.? Speech was normal in rate and normal in volume.? Mood described as a little better. His affect was more restricted today. ? Thought process was linear and logical. ? Thought content: Patient endorsed fleeting suicidal thoughts with no plan and denied homicidal ideation. There were no delusions reported or noted, he endorsed fleeting auditory hallucinations and denied visual hallucinations. Attention and concentration were limited and memory was mostly reliable but none were formally tested.? He is alert and oriented x3.? Insight was poor and judgment is impaired. Impulse control is poor. Vitals/I&O/Wt Last Vital Signs Temp 9.8 F L 07/24/23 13:57 Pulse 115 H 07/24/23 13:57 Resp 17 07/24/23 13:57 BP 133/85 07/24/23 13:57 Pulse Ox 95 07/24/23 13:57 O2 Del Method Room Air 07/22/23 06:00 Data NPU 07/20/23 19:27 07/20/23 19:27 A&P Assessment and plan (1) Bipolar disorder with depression: (2) Depression with suicidal ideation: (3) Chronic schizophrenia: (4) Suicide attempt: (5) Alcohol dependence, in remission: (6) Antisocial personality disorder: (7) Suicidal ideation: (8) Amphetamine abuse: Plan This is a 52-year-old white male with a long history of multiple inpatient hospitalizations often with concerns for malingering who presents today reporting that he has not been taking his medication but but struggling with resources, homelessness and aggressive/suicidal/homicidal feelings and ideations. 1. Continue Abilify 15 mg p.o. daily Abilify Maintena 400 mg IM given today. Increase Trazodone 150mg at night for sleep. 2. To-15 minute checks, 3.? Encourage individual, group and milieu therapy. 4.? Encourage sober living treatment after discharge at the highest level of care to which he is willing to commit.? 5. Will attempt to gather collateral information. Involuntary Hold Information 96 Hour Hold: 96 Hour Involuntary Admission: Yes 96 Hour Hold Ending Date: 07/25/23 96 Hour Hold Ending Time: 00:01 Attestations NPU Medical Necessity Statement*: Inpatient hospitalization is medically necessary and deemed to ?be ?the clinically appropriate intervention ?at this time.? We will monitor/initiate medications and make changes as indicated.? ? The patient?s likely length of stay 3-5 days. Coding Level of Care Code Acute Code for g Fwd Diagnoses Bipolar disorder with depression F31.9 Depression with suicidal ideation F32.A; R45.851 Chronic schizophrenia F20.9 Suicide attempt T14.91XA Alcohol dependence, in remission F10.21 Antisocial personality disorder F60.2 Suicidal ideation R45.851 Amphetamine abuse F15.10
[2023-07-24] MEDS: OLANZapine 5 mg ODT PO (16:21)
[2023-07-24] MEDS: hyDROXYzine 25 mg Capsule 50 MG PO (20:39)
[2023-07-24] MEDS: trazodone 150 mg Tablet PO (20:39)
[2023-07-24 21:23] VITALS: BP 106/65; PULSE 91; RESP 17; TEMP 36.5; O2SAT 96
[2023-07-25 06:00] VITALS: BP 111/77; PULSE 98; RESP 17; TEMP 36.5; O2SAT 97
[2023-07-25] MEDS: nicotine 4 mg lozenge MUCOUS MEM ×7 (06:33→21:21)
[2023-07-25] MEDS: OLANZapine 5 mg ODT PO (08:11)
[2023-07-25] MEDS: ARIPiprazole 10 mg Tablet 15 MG PO (08:11)
--- NOTE | 2023-07-25 08:51 | PC.NURSE ---
PT UP PACING HALLS. DENIES SI/HI AND AVH AT THIS TIME. DENIES PAIN. PT ANTICIPATES DISCHARGING TODAY. RATES ANXIETY 07/17 AND DEPRESSION 05/17. ZYDIS 5 MG WAS REQUESTED AND GIVEN ORDERED FOR REPORTS OF INCREASED ANXIETY. ALL QUESTIONS ANSWERED AND SUPPORT VOICED.
[2023-07-25 12:00] VITALS: BP 146/95; PULSE 86; RESP 20; TEMP 36.8; O2SAT 97
[2023-07-25 14:00] VITALS: BP 132/86; PULSE 98; RESP 20; TEMP 36.7; O2SAT 96
--- NOTE | 2023-07-25 16:51 | P.NPUPN_ITS ---
Subjective NPU 2 Subjective: Patient presented today reporting that he is feeling a little better and he has tolerated his Abilify injection. We discussed changing that to the Abilify Asimtufii at discharge. We discussed the likely discharge on Friday. We discussed him needing to continue his oral dosing of Abilify for another 10 days before he can reliable the injection alone. He denied any side effects to the medication and reported he felt things were going the right direction. Mental Status Exam 2 MSE Comments: This is an obese white male in hospital scrubs with appropriate grooming and adequate eye contact.? No abnormal movements except for mild psychomotor retardation today.? He was mostly cooperative with exam in mild distress.? Speech was normal in rate and normal in volume.? Mood described as a little better. His affect was more restricted today. ? Thought process was linear and logical. ? Thought content: Patient endorsed fleeting suicidal thoughts with no plan and denied homicidal ideation. There were no delusions reported or noted, he endorsed fleeting auditory hallucinations and denied visual hallucinations. Attention and concentration were limited and memory was mostly reliable but none were formally tested.? He is alert and oriented x3.? Insight was poor and judgment is impaired. Impulse control is poor. Vitals/I&O/Wt Last Vital Signs Temp 98.1 F 07/25/23 14:00 Pulse 98 07/25/23 14:00 Resp 20 H 07/25/23 14:00 BP 132/86 07/25/23 14:00 Pulse Ox 96 07/25/23 14:00 O2 Del Method Room Air 07/22/23 06:00 Data NPU 07/20/23 19:27 07/20/23 19:27 A&P Assessment and plan (1) Bipolar disorder with depression: (2) Depression with suicidal ideation: (3) Chronic schizophrenia: (4) Suicide attempt: (5) Alcohol dependence, in remission: (6) Antisocial personality disorder: (7) Suicidal ideation: (8) Amphetamine abuse: Plan This is a 52-year-old white male with a long history of multiple inpatient hospitalizations often with concerns for malingering who presents today reporting that he has not been taking his medication but but struggling with resources, homelessness and aggressive/suicidal/homicidal feelings and ideations. 1. Continue Abilify 15 mg p.o. daily and will give for an additional 10 days. Abilify Maintena 400 mg IM given 07/22/2023. Increased Trazodone 150mg at night for sleep. 2. To-15 minute checks, 3.? Encourage individual, group and milieu therapy. 4.? Encourage sober living treatment after discharge at the highest level of care to which he is willing to commit.? 5. Patient reports a plan to return to [place] with transportation assistance likely Friday. Involuntary Hold Information 2 96 Hour Hold: 96 Hour Involuntary Admission: Yes 96 Hour Hold Ending Date: 07/25/23 96 Hour Hold Ending Time: 00:01 Attestations NPU 2 Medical Necessity Statement*: Inpatient hospitalization is medically necessary and deemed to ?be ?the clinically appropriate intervention ?at this time.? We will monitor/initiate medications and make changes as indicated.? ? The patient?s likely length of stay 3-5 days. Coding Level of Care Code Acute Code for g Fwd Diagnoses Bipolar disorder with depression F31.9 Depression with suicidal ideation F32.A; R45.851 Chronic schizophrenia F20.9 Suicide attempt T14.91XA Alcohol dependence, in remission F10.21 Antisocial personality disorder F60.2 Suicidal ideation R45.851 Amphetamine abuse F15.10
[2023-07-25] MEDS: trazodone 150 mg Tablet PO (21:21)
[2023-07-25 21:30] VITALS: BP 122/82; PULSE 99; RESP 18; TEMP 36.6; O2SAT 96
[2023-07-26 06:00] VITALS: BP 137/87; PULSE 72; RESP 18; TEMP 36.4; O2SAT 98
[2023-07-26] MEDS: nicotine 4 mg lozenge MUCOUS MEM ×7 (06:04→18:55)
--- NOTE | 2023-07-26 07:20 | P.NPUPN_ITS ---
Subjective NPU 2 Subjective: Patient presented today reporting that he is doing okay. He reports feeling that he will be ready for returning to [place] at the beginning of the week. We discussed moving with the treatment team/social workers plan to get him back to [place] then. He reports that he is tolerating the Abilify with no side effects. We discussed changing him to Abilify Asimtufii at discharge. Mental Status Exam 2 MSE Comments: This is an obese white male in hospital scrubs with appropriate grooming and adequate eye contact.? No abnormal movements except for mild psychomotor retardation today.? He was mostly cooperative with exam in mild distress.? Speech was normal in rate and normal in volume.? Mood described as a little better. His affect was more restricted today. ? Thought process was linear and logical. ? Thought content: Patient endorsed fleeting suicidal thoughts with no plan and denied homicidal ideation. There were no delusions reported or noted, he endorsed fleeting auditory hallucinations and denied visual hallucinations. Attention and concentration were limited and memory was mostly reliable but none were formally tested.? He is alert and oriented x3.? Insight was poor and judgment is impaired. Impulse control is poor. Vitals/I&O/Wt Last Vital Signs Temp 97.5 F L 07/26/23 06:00 Pulse 72 07/26/23 06:00 Resp 18 07/26/23 06:00 BP 137/87 07/26/23 06:00 Pulse Ox 98 07/26/23 06:00 O2 Del Method Room Air 07/26/23 06:00 Data NPU 07/20/23 19:27 07/20/23 19:27 A&P Assessment and plan (1) Bipolar disorder with depression: (2) Depression with suicidal ideation: (3) Chronic schizophrenia: (4) Suicide attempt: (5) Alcohol dependence, in remission: (6) Antisocial personality disorder: (7) Suicidal ideation: (8) Amphetamine abuse: Plan This is a 52-year-old white male with a long history of multiple inpatient hospitalizations often with concerns for malingering who presents today reporting that he has not been taking his medication but but struggling with resources, homelessness and aggressive/suicidal/homicidal feelings and ideations. 1. Continue Abilify 15 mg p.o. daily and will give for an additional 9 days. Abilify Maintena 400 mg IM given 07/22/2023. Increased Trazodone 150mg at night for sleep. 2. To-15 minute checks, 3.? Encourage individual, group and milieu therapy. 4.? Encourage sober living treatment after discharge at the highest level of care to which he is willing to commit.? 5. Patient reports a plan to return to [place] with transportation assistance likely Friday. Involuntary Hold Information 2 96 Hour Hold: 96 Hour Involuntary Admission: Yes 96 Hour Hold Ending Date: 07/25/23 96 Hour Hold Ending Time: 00:01 Attestations NPU 2 Medical Necessity Statement*: Inpatient hospitalization is medically necessary and deemed to ?be ?the clinically appropriate intervention ?at this time.? We will monitor/initiate medications and make changes as indicated.? ? The patient?s likely length of stay 2-4 days. Coding Level of Care Code Acute Code for g Fwd Diagnoses Bipolar disorder with depression F31.9 Depression with suicidal ideation F32.A; R45.851 Chronic schizophrenia F20.9 Suicide attempt T14.91XA Alcohol dependence, in remission F10.21 Antisocial personality disorder F60.2 Suicidal ideation R45.851 Amphetamine abuse F15.10
[2023-07-26] MEDS: ARIPiprazole 10 mg Tablet 15 MG PO (08:06)
[2023-07-26] MEDS: OLANZapine 5 mg ODT PO ×2 (08:35→20:10)
--- NOTE | 2023-07-26 08:59 | PC.NURSE ---
Patient states he slept well last night, but awoke feeling depressed. He says a friend a week and a half ago that he had been friends with for some time and that it really bothered him. He denies si/hi and avh. Patient very friendly and cooperative this morning.
[2023-07-26 13:05] VITALS: BP 152/97; PULSE 94; RESP 20; TEMP 36.9; O2SAT 95
[2023-07-26] MEDS: trazodone 150 mg Tablet PO (20:10)
[2023-07-26 20:27] VITALS: BP 132/87; PULSE 80; RESP 18; TEMP 36.7; O2SAT 98
[2023-07-27] MEDS: nicotine 4 mg lozenge MUCOUS MEM ×7 (05:58→19:39)
[2023-07-27 06:00] VITALS: BP 149/83; PULSE 85; RESP 18; TEMP 36.4; O2SAT 97
--- NOTE | 2023-07-27 07:50 | PC.NURSE ---
During morning assessment, patient reports that he is doing good this morning, that he slept well last night. Patient denies all, including anger/aggression. Patient told to notify this nurse with any issues, patient verbalized understanding.
[2023-07-27] MEDS: ARIPiprazole 10 mg Tablet 15 MG PO (08:09)
[2023-07-27 13:49] VITALS: BP 127/69; PULSE 94; RESP 20; TEMP 36.8; O2SAT 98
--- NOTE | 2023-07-27 14:17 | P.NPUPN_ITS ---
Subjective NPU 2 Subjective: Patient presented today reporting that he is feeling better slowly but surely. We continued to discuss the plan of transitioning from the oral Abilify and he is reporting commitment to the long-acting injectable fully changing that to the Abilify Asimtufii after discharge. We continued to discuss his plan to return to [place] and we agreed to work with the social work team tomorrow to get him appropriate resources and help with transportation back to the area. He denied any side effects to his medication. Mental Status Exam 2 MSE Comments: This is an obese white male in hospital scrubs with appropriate grooming and adequate eye contact.? No abnormal movements except for mild psychomotor retardation today.? He was mostly cooperative with exam in mild distress.? Speech was normal in rate and normal in volume.? Mood described as a little better. His affect was congruent and less restricted. ? Thought process was linear and logical. ? Thought content: Patient denied suicidal or homicidal ideation. There were no delusions reported or noted, he endorsed resolving auditory hallucinations and denied visual hallucinations. Attention and concentration were limited and memory was mostly reliable but none were formally tested.? He is alert and oriented x3.? Insight and judgment are limited but improving. Impulse control is limited. Vitals/I&O/Wt Last Vital Signs Temp 98.2 F 07/27/23 13:49 Pulse 94 07/27/23 13:49 Resp 20 H 07/27/23 13:49 BP 127/69 07/27/23 13:49 Pulse Ox 98 07/27/23 13:49 O2 Del Method Room Air 07/27/23 06:00 Weight last 48 hrs Weight 127.006 kg Data NPU 07/20/23 19:27 07/20/23 19:27 A&P Assessment and plan (1) Bipolar disorder with depression: (2) Depression with suicidal ideation: (3) Chronic schizophrenia: (4) Suicide attempt: (5) Alcohol dependence, in remission: (6) Antisocial personality disorder: (7) Suicidal ideation: (8) Amphetamine abuse: Plan This is a 52-year-old white male with a long history of multiple inpatient hospitalizations often with concerns for malingering who presents today reporting that he has not been taking his medication but but struggling with resources, homelessness and aggressive/suicidal/homicidal feelings and ideations. 1. Continue Abilify 15 mg p.o. daily and will give for an additional 8 days. Abilify Maintena 400 mg IM given 07/22/2023. Increased Trazodone 150mg at night for sleep. 2. To-15 minute checks, 3.? Encourage individual, group and milieu therapy. 4.? Encourage sober living treatment after discharge at the highest level of care to which he is willing to commit.? 5. Patient reports a plan to return to [place] with transportation assistance likely Friday. Involuntary Hold Information 2 96 Hour Hold: 96 Hour Involuntary Admission: Yes 96 Hour Hold Ending Date: 07/25/23 96 Hour Hold Ending Time: 00:01 Attestations NPU 2 Medical Necessity Statement*: Inpatient hospitalization is medically necessary and deemed to ?be ?the clinically appropriate intervention ?at this time.? We will monitor/initiate medications and make changes as indicated.? ? The patient?s likely length of stay 1-3 days. Coding Level of Care Code Acute Code for [facility] Fwd Diagnoses Bipolar disorder with depression F31.9 Depression with suicidal ideation F32.A; R45.851 Chronic schizophrenia F20.9 Suicide attempt T14.91XA Alcohol dependence, in remission F10.21 Antisocial personality disorder F60.2 Suicidal ideation R45.851 Amphetamine abuse F15.10
[2023-07-27] MEDS: OLANZapine 5 mg ODT PO (20:13)
[2023-07-27] MEDS: trazodone 150 mg Tablet PO (20:13)
[2023-07-27 20:24] VITALS: BP 129/84; PULSE 95; RESP 18; TEMP 36.7; O2SAT 96
[2023-07-28 06:00] VITALS: BP 131/87; PULSE 73; RESP 16; TEMP 36.5; O2SAT 98
[2023-07-28] MEDS: nicotine 4 mg lozenge MUCOUS MEM ×4 (06:16→12:08)
[2023-07-28] MEDS: ARIPiprazole 10 mg Tablet 15 MG PO (08:10)
--- NOTE | 2023-07-28 08:40 | PC.NURSE ---
PT DENIES PAIN. DENIES SI/HI AND AVH AT THIS TIME. PT ANTICIPATES DISCHARGE TODAY AND IS GOING TO [place] TO TURN HIMSELF IN. DUE TO HAVING A WARRANT. PT RATES DEPRESSION 5/10 AND ANXIETY 0/10. PT GOAL FOR THE DAY [facility] [place]. ALL QUESTIONS ANSWERED AND SUPPORT VOICED.
--- NOTE | 2023-07-28 11:13 | W.PM.NPUDCS ---
Diagnoses at Discharge Discharge Diagnosis (1) Bipolar disorder with depression: Status: Inactive (2) Depression with suicidal ideation: Status: Resolved (3) Chronic schizophrenia: Status: Acute (4) Suicide attempt: Status: Resolved (5) Alcohol dependence, in remission: Status: Acute (6) Antisocial personality disorder: Status: Inactive (7) Suicidal ideation: Status: Resolved (8) Amphetamine abuse: Status: Acute Reason for Visit Reason for Visit: MHE Brief History: History of Present Illness Emil Castro is a 53 year old male with a previous history of bipolar disorder and otherwise specified, and schizophrenia along with methamphetamine abuse who presented to the emergency department with reoccurring thoughts about wanting to harm himself and had been gone 3 days ago. He had stated that he began to hear birds that were telling him to jump off of a bridge. He had reported that he had been abstaining from the use of alcohol for several months but had relapsed and had consumed 1 single beer. He reported no recent use of methamphetamine and his urine drug screen was negative on arrival here. He had reported that he was having some thoughts of cutting himself with a knife and states that he reports that he had stopped all of his medications for several months. He reports having frequent mood swings. He had endorsed a history of having racing thoughts. He reports that he has been distracted by his thoughts. He had reported having thoughts of others trying to harm him and stated that he was generally distrustful of others. He reports some difficulties with concentration. 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 Patient had reported no substantiative changes since his last hospitalization in November 2022. Psychiatric History: none currently, no outpatient follow ups, no new inpatient hospitalizations noted Current medications: none (previous medications include Abilify Maintena monthly, Abilify 15mg orally, NPU Discharge Summary from 11/29/22: History of Present Illness Emil Castro is a 52 year old male who presented to the emergency department with the following report: Chief Complaint: Psychiatric Symptoms Stated Complaint: SI Time Seen by Provider: 11/22/22 19:07 History of Present Illness: 52-year-old male with history of mood disorder and currently noncompliant with his medication presents emergency room with vague complaint of homicidal and suicidal ideation for the past few weeks. Patient reveals that he wants to shoot himself in the head and anticoagulant was attacking him. Patient denies any nausea, vomiting, chest pain, shortness of breath. Patient reveals that he is hearing voices from the birds. Associated symptoms: Reports auditory hallucinations, homicidal ideation and suicidal ideation; Deny visual hallucinations or delusions. He was admitted to the neuropsychiatric unit for definitive treatment of those issues. 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 He presents as he generally has recently with suicidal versus homicidal ideation and with limited resources off of medication. [place] presents [place] to manage things air without significant resources he reports he has been off his medication for some time but gives no real indicator of what led to that change. He was last seen here 6 weeks ago and has continued struggles with ayan stability, housing and direction for that matter. He presents today without irritability which is a common factor in his presentations. He reports a desire to get assistance resuming his medication but when we talked about things like the ERE program and a stronger [facility] presence, he was fairly ambivalent about that kind of increased resources. We discussed the risks, benefits and alternatives of restarting his Abilify at an appropriate dose and he understood agreed to proceed as documented in this note. We broached the subject of the possibility of a long-acting injection. An excerpt of his 10/08/2022 discharge summary is included below for context. Per his 10/08/2022 [facility] inpatient psychiatric discharge summary: Discharge Diagnosis (1) Bipolar disorder with depression: Status: Acute (2) Depression with suicidal ideation: Status: Resolved (3) Suicide attempt: Status: Acute (4) Alcohol dependence, in remission: Status: Acute (5) Drug-induced psychotic disorder: Status: Inactive (6) Antisocial personality disorder: Status: Inactive Reason for Visit Reason for Visit: SI Brief History: History of Present Illness Emil Castro is a 52 year old male who presented to the emergency department with the following report: Chief Complaint: Psychiatric Symptoms Stated Complaint: SI Time Seen by Provider: 10/02/22 11:11 Source: patient Mode of arrival: ambulatory History of Present Illness: 52-year-old male presents emergency room with complaint of suicidal ideations racing thoughts some hallucinations. Patient has a history of alcoholism as well as bipolar disorder. He states he stopped taking all of his medicines 5 or 6 months ago however he was hospitalized in early May of this year. He was discharged on May 08 and then readmitted on May 18. He did admit to drinking this morning he is still mildly agitated but not confrontational easily redirected. He cannot give me a specific reason as to why he stopped his medications. He did not particularly identify side effects he does states he did not get them refilled MD complaint: suicidal ideation Onset (ago): day(s) Duration: changing over time and getting worse History of same: Yes Relieving factors: none Exacerbating factors: alcohol Context: recent alcohol abuse Associated psychiatric symptoms: none Associated symptoms: Deny auditory hallucinations, visual hallucinations, delusions, depression, homicidal ideation, suicidal ideation or racing thoughts Treatments prior to arrival: none If self harm: admits thoughts of self harm and has plan. He was admitted to the neuropsychiatric unit for definitive treatment of those issues. Patient presents today much like he is presented recently. UDS was unremarkable with no noted active drug use. This is in jackson contrast to his presentations 2+ years ago such that he was very agitated by the question about addiction. We discussed the fact that this is part of our normal screening questions. Which did seem to settle help. He presented quite agitated and not very open to questioning endorsing that this irritability is the reason that he came to the hospital. Reporting that he is finding himself to be quite easily agitated. He reports that after his May hospitalization he discontinued the medication. He reports that he went and got a job but then all that fell apart. We discussed the issue with the medication and why he discontinued it and he reports that the Seroquel which previously was a stable and standard medication in his regimen made him too tired and unable to function. He reported an openness to a trial of a new medication and we discussed the risks, benefits and alternatives of starting Abilify 10 mg p.o. daily and he understood and agreed to proceed as is documented in this note. Otherwise he reported being homeless and having no real options and needing something to help with his agitation. An excerpt of his May 2022 hospitalization is included below for historical context. Per his 05/30/2022 [facility] inpatient psychiatric discharge summary: Discharge Diagnosis (1) Depression with suicidal ideation: Status: Resolved (2) Suicide attempt: Status: Acute (3) Alcohol dependence, in remission: Status: Acute (4) Drug-induced psychotic disorder: Status: Inactive (5) Antisocial personality disorder: Status: Chronic (6) Depressed bipolar I disorder: Status: Resolved Permanent problem details: Patient does not name and get his prescriptions filled when discharged. I am discontinuing all his meds and referring him to outpatient follow-up. Reason for Visit Reason for Visit: SI,MHE Brief History: History of Present Illness Emil Castro is a 51 year old male who presented to the emergency part with the following report: Chief Complaint: Psychiatric Symptoms Stated Complaint: SI,MHE Time Seen by Provider: 05/17/22 17:36 Source: patient Mode of arrival: ambulatory Limitations: no limitations History of Present Illness: Patient is a 51-year-old male who is well-known to the emergency department here yet again for complaints of suicidal ideations, homicidal ideations, auditory hallucinations, and aggression/anger outbursts. Patient has had multiple NPU admissions over the past few months. Patient states he never has followed up with [facility] or a primary care provider after his discharges. Patient states he is taking his prescribed medications. He continues to drink alcohol. States he has a plan to hang himself with a rope. He states he feels homicidal towards men in general and sometimes wants to slit their throats. MD complaint: suicidal ideation and other (anger/agression, HI, auditory hallucinations) Duration: constant History of same: Yes Relieving factors: none Exacerbating factors: none Context: recent alcohol abuse Associated psychiatric symptoms: depression, suicidal ideation, homicidal ideation and auditory hallucinations Associated symptoms: Reports auditory hallucinations, depression, homicidal ideation and suicidal ideation; Deny visual hallucinations Treatments prior to arrival: none If self harm: admits thoughts of self harm and has plan. He was admitted to the Neuropsych Unit for definitive treatment of issues. He presents like he has recently with significant irritability reporting concerned he is going to hurt someone. He reported that his medication based on his discharge functioning that seems unlikely. However he continues significant difficulties with his housing and managing resources. The fairly distant story reporting openness to continue medication but not expressing any clarity as what he was to do next. We discussed working with treatment team on Castro to start to look more viable and sustainable housing and resources, which she agrees with but not emphatically. We agreed to restart his medication and see how he does with regular administration and probably consider increasing his bedtime Seroquel and he understood agreed to proceed as is documented in this note Per his 05/08/2022 [facility] inpatient psychiatric discharge summary: SI Brief History: History of Present Illness Emil Castro is a 51 year old male who presented to the emergency department with the following report: Chief Complaint: Psychiatric Symptoms Stated Complaint: SI Time Seen by Provider: 05/01/22 19:21 Source: patient Mode of arrival: ambulatory Limitations: no limitations History of Present Illness: 51-year-old male states he has a history of depression along with bipolar he had a suicide attempt impassable he states over the last 5 to 6 days he been having increased irritability along with suicidal thoughts he states he had thoughts of hanging himself from a tree. He states that he realized that he needed to get help or reason to harm himself he denies any worsening proving factors he is currently not on any meds. Associated symptoms: Reports depression and suicidal ideation He was admitted to the neuropsychiatric unit for definitive treatment of those issues. He presents today reporting that he had been spending most of his time after his last discharge in [place]. He reports that he has been working and doing fairly well. He reports initially he was taking his medication but at some point he stopped taking it and he could not give any reasonable explanation for why he did that or why he has a habit of doing that. He reports that he came back to [place] for some time off and to do some camping. He reports that he started having great irritability with people around him started having some really negative thoughts about reacting to his irritability. He thought then that it was best to come to the hospital before he did something that he regretted. We discussed the risk benefits and alternatives of resuming the medications he had previously done well on and he understood and agreed to proceed as is documented in this note. An excerpt of his last discharge summary is included below for context as he was not interested in details from a history standpoint. Per his 08/27/2021 [facility] inpatient psychiatric discharge summary: Discharge Diagnosis (1) Depression with suicidal ideation: Status: Resolved (2) Suicide attempt: Status: Acute (3) Alcohol dependence, in remission: Status: Acute (4) Drug-induced psychotic disorder: Status: Acute (5) Antisocial personality disorder: Status: Chronic (6) Depressed bipolar I disorder: Status: Resolved Permanent problem details: Patient does not name and get his prescriptions filled when discharged. I am discontinuing all his meds and referring him to outpatient follow-up. Reason for Visit Reason for Visit: SI Brief History: History of Present Illness Emil Castro is a 51 year old male who presented to the emergency department the following report: Chief complaint: Psychiatric Symptoms Stated complaint: SI Time Seen by Provider: 08/23/21 19:44 History of Present Illness: HPI: [51]yo patient w/ hx of depression presenting for suicidal ideation with plan. Patient plans to hang himself and decided against the last minute and came in to the ED. On arrival, the patient is AAOx3 and cooperative with my evaluation. No focal complaints of chest pain, shortness of breath, palpitations, N/V, focal GI/ complaints. Currently denies HI. No complaints of hallucinations. Onset: acute Duration: ongoing Location: home Severity: severe Associated symptoms: Deny chest pain, dyspnea, nausea, rash, palpitations or vomiting He was admitted to the neuropsychiatric unit for definitive treatment of those issues. Patient is well-known to the unit from multiple past inpatient stays the last of which was in June. He had previously been here much more often but had been having a modicum of success followed by some recent challenges again. He reports that after his last stay he had gone to [place] and was doing fairly well and told someone on convoluted story about how he was coming back here to get his mail arranged and that he decided once he was here that he was going to go ahead and say and he went to [facility] and they were lining up a place for him to stay in the next 2 or 3 days. But then frustrations and bad choices get the best of him which led him to presenting to the hospital yesterday. He reports another problem that led to him coming his way was that he has he will get his medication for about the last month or so he would not and could not explain whether this was related to him not following through on something to get refills or some other concern. Review of the chart suggested maybe he was given refills in the left in beginning of June. Unclear why that occurred. He was indicated to moving forward, getting his own place to [facility] getting back on medication and trying to remain in the right direction. Documentation shows that he has been doing better when he comes to his addictive behavior however he reports sobriety extending back more than 6 months and I am unconvinced that that is accurate though. We discussed the risk benefits alternatives of getting his medications restarted and trying to assist him in stability on that front and he understood agreed proceed as is documented in this note. An excerpt of his June stay is included below for context. Hospital course 05/08/22 : He slowly acclimated to the individual, group and milieu therapies provided. He presented reporting irritability being off of medication. Seroquel was started at bedtime and 2 daytime doses were added. He was titrated up to 50 mg twice a day and 100 milligrams at night. He continues to have challenging living successes at home is becoming factor. He dorsoplantar this maneuver he has had some success. With his medications restarted and he did have significant improvement. He was able to contract for safety outside of the hospital prior to discharge. During the hospitalization, patient had routine laboratory studies which were within normal limits except for few outliers. Additionally there was a general medical evaluation which was also within normal limits and revealed no new acute processes. Discharge Summary: At the time of discharge, lethality was denied and psychosis was resolving. Mood and anxiety were well managed. Patient endorsed a plan to avoid all drugs of abuse and follow-up with the aftercare recommendations of the treatment team. Patient was evaluated and deemed to be absent credible lethality, and was voluntary and denied wanting any continued inpatient hospitalization, so he was discharged. Hospital Course 05/30/22: Discharge Summary: During the hospitalization, patient had routine laboratory studies which were within normal limits except for few outliers. Additionally there was a general medical evaluation which was also within normal limits and revealed no new acute processes. At the time of discharge, lethality was denied and psychosis was resolving. Mood and anxiety were well managed. Patient endorsed a plan to avoid all drugs of abuse and follow-up with the aftercare recommendations of the treatment team. Patient was evaluated and deemed to be absent credible lethality, and had achieved the maximum benefit from an inpatient hospitalization, so was discharged. Hospital Course Hospital Course During the hospitalization, the patient had routine laboratory studies which were within normal limits except for a few outliers. Additionally, there was a general medical evaluation which was also within normal limits and revealed no new acute processes. At the time of discharge, lethality was denied and psychosis was resolving. Mood and anxiety were well managed. The patient endorsed a plan to avoid all drugs of abuse and follow up with the aftercare recommendations of the treatment team. The patient was evaluated and deemed to be absent credible lethality and had achieved the maximum benefit from an inpatient hospitalization, and so was discharged. Involuntary Hold Information 96 Hour Hold: 96 Hour Involuntary Admission: Yes 96 Hour Hold Ending Date: 07/25/23 96 Hour Hold Ending Time: 00:01 Mental Status Exam MSE Comments: This is an obese white male in hospital scrubs with appropriate grooming and adequate eye contact.? No abnormal movements except for mild psychomotor retardation today.? He was mostly cooperative with exam in mild distress.? Speech was normal in rate and normal in volume.? Mood described as a little better. His affect was congruent and less restricted. ? Thought process was linear and logical. ? Thought content: Patient denied suicidal or homicidal ideation. There were no delusions reported or noted, he endorsed resolving auditory hallucinations and denied visual hallucinations. Attention and concentration were limited and memory was mostly reliable but none were formally tested.? He is alert and oriented x3.? Insight and judgment are limited but improving. Impulse control is limited. Discharge Data Studies Completed and Pending: Laboratory Results WBC 10.22 10^3/uL (3. 29-11.43) 07/20/23 19: RBC 4.70 10^6/uL (3.8 5-5.65) 07/20/23 19: Hgb 15.40 g/dL (11.27 -16.99) 07/20/23 19: Hct 45.3 % (37-53) 07/20/23 19: MCV 96.4 fl (82-101) 07/20/23 19: MCH 32.8 pg (27-33) 07/20/23 19: MCHC 34.0 g/dL (30-55) 07/20/23 19: RDW 12.6 % (12.1-15.1 ) 07/20/23 19: Plt Count 178 10^3/cmm (157 -399) 07/20/23 19: MPV 10.3 fL (7.4-10.4 ) 07/20/23 19: Neut % (Auto) 60.8 % 07/20/23 19:27 Lymph % (Auto) 23.9 % 07/20/23 19:27 Collier % (Auto) 9.3 % 07/20/23 19: Eos % (Auto) 4.7 % 07/20/23 19: Baso % (Auto) 1.0 % 07/20/23 19: Neut # (Auto) 6.22 10^3/uL (1.8 -7.7) 07/20/23 19: Lymph # (Auto) 2.4 10^3/uL (0.8- 4.8) 07/20/23 19: Collier # (Auto) 1.0 10^3/uL (0.2- 0.9) H 07/20/23 19: Eos # (Auto) 0.5 10^3/uL (0.0- 0.8) 07/20/23 19: Baso # (Auto) 0.1 10^3/uL (0.0- 0.1) 07/20/23 19: Nucleated RBC % (a uto) 0 % 07/20/23 19: Nucleated RBCs # 0.0 /100WBC 07/20/23 19: Sodium 137 mmol/L (136-1 45) 07/20/23: Potassium 4.0 mmol/L (3.5-5 .1) 07/20/23 19: Chloride 100 mmol/L (98-10 7) 07/20/23: Carbon Dioxide 27 mmol/L (22-29) 07/20/23: Anion Gap 14.0 (5-19) 07/20/23 19: BUN 17 mg/dL (6-20) 07/20/23 19: Creatinine 0.8 mg/dL (0.7-1. 2) 07/20/23: GFR Calculation 100.7 mL/min (90- 130) 07/20/23: Glucose 103 mg/dL (65-115 ) 07/20/23: Calculated Osmolal ity 286 mOsm/kg (285- 295) 07/20/23: Calcium 8.2 mg/dL (8.5-10 .5) L 07/20/23 19:27 Total Bilirubin 0.3 mg/dL (0.15-1 .2) 07/20/23 19:27 AST 30 U/L (0-40) 07/20/23 19: ALT 36 U/L (0-41) 07/20/23 19:27 Alkaline Phosphata se 83 U/L (40-130) 07/20/23 19:27 Total Protein 7.1 g/dL (6.6-8.7 ) 07/20/23 19:27 Albumin 4.4 g/dL (3.5-5.2 ) 07/20/23 19:27 Globulin 2.7 g/dL (1.3-4.6 ) 07/20/23 19:27 Salicylates < 0.3 mg/dL (3-10 ) L 07/20/23 19:27 Urine Opiates Scre en Negative ng/mL (N egative) 07/20/23 19:15 Acetaminophen < 5.0 ug/mL (10-3 0) L 07/20/23 19:27 Ur Barbiturates Sc reen Negative ng/mL (N egative) 07/20/23 19:15 Ur Phencyclidine S crn Negative ng/mL (N egative) 07/20/23 19:15 Ur Amphetamines Sc reen Negative ng/mL (N egative) 07/20/23 19:15 U Benzodiazepines Scrn Negative ng/mL (N egative) 07/20/23 19:15 Urine Cocaine Scre en Negative ng/mL (N egative) 07/20/23 19:15 U Marijuana (THC) Screen Negative ng/mL (N egative) 07/20/23 19:15 Ethyl Alcohol < 10 mg/dL (0-10) 07/20/23 19:27 Vitals: Last Vital Signs Temp 97.7 F 07/28/23 06:00 Pulse 73 07/28/23 06:00 Resp 16 07/28/23 06:00 BP 131/87 07/28/23 06:00 Pulse Ox 98 07/28/23 06:00 O2 Del Method Room Air 07/28/23 06:00 Discharge Plan Discharge Patient Disposition: Home Condition: Stable Prescriptions: New aripiprazole 15 mg tablet 15 mg PO DAILY 7 Days Qty: 7 0RF Rx Instructions: Discontinue in 7 days when pills run out. Continue long-acting injectable. trazodone 150 mg Tablet 150 mg PO BEDTIME 30 Days Qty: 30 1RF Abilify Asimtufii 960 mg/3.2 mL suspension,extended rel syring 960 mg IM ONCE 60 Days Qty: 192 1RF Rx Instructions: Next injection 09/20/2023 and then as directed. Discharge Orders: Discharge Order (Routine); Ordered 07/28/23 Ordered By: Sam Bond Referrals: [facility] [Outside] - 4-7 days Discharge Diet: Regular Discharge Activity: Resume usual activity Patient Instructions: Opioid Safety Discharge Attestations NPU Time Spent in Discharge Care*: less than 30 min Specific Discharge Activities: Specific discharge activities: educating patient, discussing with immigration case manager/social workers/dc planners, documenting/other paperwork and evaluating patient/reviewing data Status at Discharge: Cognitive status at discharge: cognitively intact, Behavioral status at discharge: cooperative, Coding Level of Care Code Acute Code for [facility] Fwd Diagnoses Bipolar disorder with depression F31.9 Depression with suicidal ideation F32.A; R45.851 Chronic schizophrenia F20.9 Suicide attempt T14.91XA Alcohol dependence, in remission F10.21 Antisocial personality disorder F60.2 Suicidal ideation R45.851 Amphetamine abuse F15.10
[2023-07-28 11:36] VITALS: BP 131/87; PULSE 73; RESP 16; TEMP 36.5; O2SAT 98
--- NOTE | 2023-07-28 13:46 | DCPLANNER ---
IMM completed 07/28/23 @ 6630. Pt was given a copy of his rights and he stated he understood his rights.
== END 2023-07-28 12:52 | disposition home or self-care (01) | DRG 885 ==
LOC: ER 20:35 → NP 20:50
PROVIDERS: Admitting Provider Psychiatry & Neurology Psychiatry; Emergency Provider Emergency Medicine; Visit Provider Psychiatry & Neurology Psychiatry
DX: F31.9 Bipolar disorder, unspecified (principal); R45.851 Suicidal ideations; Z59.02 Unsheltered homelessness; F10.21 Alcohol dependence, in remission; F15.10 Other stimulant abuse, uncomplicated; F60.2 Antisocial personality disorder; R45.850 Homicidal ideations; F20.9 Schizophrenia, unspecified; Z91.148 Patient's other noncompliance with medication regimen for other reason
CPT/HCPCS: 36415; 80053; 80306; 80307; 85025; 93005; 96372; 97150; 97165; 99285

== ENCOUNTER 2023-08-30 17:02 | Inpatient (IN) | payer MEDICARE, MEDICAID, SELFPAY ==
--- NOTE | 2023-08-30 17:15 | W.ED.PSYCHS ---
HPI - Psych General: Chief Complaint: Psychiatric Symptoms Stated Complaint: HI, SI Time Seen by Provider: 08/30/23 17:10 Source: patient Mode of arrival: ambulatory Limitations: no limitations History of Present Illness: Patient is a 53-year-old male with extensive psychiatric history who presents to the emergency department complaining of suicidal ideations, homicidal ideations, and auditory hallucinations today. Patient recently was discharged from the [facility] at the end of July, and states that other than receiving an injection he has not taken any medications. Initially he states he was doing okay though today was started to hear birds talk to him and had the overwhelming urge to shoot himself in the head. He also states that he has been having increased anger issues where he feels like he could shoot someone else in the head. He denies any illicit drug use other than smoking marijuana recently. He does have extensive past medical history of alcohol abuse. He denies drinking recently. When I ask him where he lives, he states that he has just been camping out lately. He does report a history of attempting suicide in the past, where he hung a rope over a tree and put his neck through it though did not go any further than this. He is not reporting any visual hallucinations or tactile hallucinations. No medical symptoms reported at this time. He requests to come into the psychiatric unit to be seen at this time. MD complaint: other (SI/HI/auditory hallucinations) Onset (ago): hour(s) Duration: constant History of same: Yes Relieving factors: none Exacerbating factors: none Associated symptoms: Reports auditory hallucinations, homicidal ideation and suicidal ideation; Deny visual hallucinations If self harm: admits thoughts of self harm and has plan Review of Systems General: Reports: 10 or more systems reviewed and unremarkable except in HPI and below Const: Denies: fever(s), chills or fatigue Eyes: Denies: change in vision ENMT: Denies: throat pain, ear or mastoid pain or nasal discharge Card: Denies: chest pain, palpitations, swelling of feet/ankles or lightheadedness Resp: Denies: dyspnea, productive cough or wheezing GI: Denies: abdominal pain, nausea, vomiting, diarrhea or constipation : Denies: flank pain, difficulty urinating, dysuria or urinary frequency Musc: Denies: neck pain, back pain or joint pain Skin/Breast: Denies: rash Neuro: Denies: headache(s), numbness in extremities or weakness in extremities Psych: Reports: auditory hallucinations, suicidal ideation and homicidal ideation; Denies: visual hallucinations or tactile hallucinations PFSH ED PFSH: Medical History Bipolar disorder with depression Chronic alcohol abuse Alcohol dependence, in remission Bipolar 2 disorder Drug-induced psychotic disorder Malingering Antisocial personality disorder Social History Smoking and tobacco/nicotine status: current every day tobacco/nicotine user Physical Exam Const: COMMON NORMALS: no acute distress, patient oriented x3 and no limitations GENERAL APPEARANCE: cooperative, comfortable and well developed ORIENTATION/CONSCIOUSNESS: Yes awake, Yes oriented to person, Yes oriented to place and Yes oriented to time HENMT: COMMON NORMALS: normocephalic, atraumatic and hearing grossly normal bilaterally HEAD & SCALP: normocephalic and atraumatic Eye: COMMON NORMALS: Equal, round and reactive pupils present, EOMs intact bilaterally and conjunctivae normal CONJUNCTIVA: Yes conjunctivae normal PUPIL: Yes Equal, round and reactive pupils present Neck/C-Spine: COMMON NORMALS: full ROM, supple and no JVD Resp: COMMON NORMALS: normal respiratory effort, No retractions, No use of accessory muscles and clear to auscultation bilaterally AUSCULTATION: clear to auscultation bilaterally Cardio: COMMON NORMALS: no JVD, regular rate, regular rhythm, No clicks present (Cardio), No murmurs present (Cardio) and No rub (Cardio) RATE: regular rate RHYTHM: regular rhythm GI: COMMON NORMALS: Normal to inspection, nondistended, normoactive bowel sounds present, Soft to palpation and non-tender AUSCULTATION: Yes normoactive bowel sounds PALPATION: Yes Soft to palpation RECTAL EXAM: Yes deferred Extremity: COMMON NORMALS: normal to inspection, full ROM and capillary refill normal Neuro: COMMON NORMALS: patient oriented x3, CN's II-XII intact bilaterally, moves all extremities, no focal motor deficits and no sensory deficits noted SENSORIUM/ORIENTATION: Yes oriented to person, Yes oriented to place and Yes oriented to time Psych: COMMON NORMALS: mental status grossly normal, Normal thought process present and speech normal APPEARANCE: Yes unkempt ATTITUDE: Yes calm ACTIVITY/MOTOR BEHAVIOR: Yes appropriate eye contact SPEECH: Yes normal speech MOOD & AFFECT: Yes elevated mood THOUGHT PROCESS: Normal thought process present THOUGHT CONTENT: Yes Suicidality present, Yes Homicidality present and Yes Hallucination(s) present auditory ATTENTION/CONCENTRATION: Yes attention grossly intact Skin: COMMON NORMALS: no rashes or lesions noted GENERAL SKIN EXAM: no rashes or lesions noted Course Vital Signs: Vital signs: Vital Signs Temperature 97.9 F 08/30/23 17:20 Pulse Rate 83 08/30/23 17:20 Respiratory Rate 18 08/30/23 17:20 Blood Pressure 138/92 08/30/23 17:20 Pulse Oximetry 95 08/30/23 17:20 Oxygen Delivery Me thod Room Air 08/30/23 17:20 MDM - Psych Medical Decision Making Patient is admitted to the neuropsychiatric unit by Dr. Bond. Patient cleared medically. Patient's case discussed with supervising ED physician, Dr. Escobedo. Lab Data 08/30/23 17:27 08/30/23 17:27 Laboratory Results WBC 9.39 10^3/uL (3.29-11.43) 08/30/23 17:27 RBC 4.86 10^6/uL (3.85-5.65) 08/30/23 17:27 Hgb 15.90 g/dL (11.27-16.99) 08/30/23 17:27 Hct 46.3 % (37-53) 08/30/23 17:27 MCV 95.3 fl (82-101) 08/30/23 17: MCH 32.7 pg (27-33) 08/30/23 17: MCHC 34.3 g/dL (30-55) 08/30/23 17:27 RDW 13.2 % (12.1-15.1) 08/30/23 17:27 Plt Count 196 10^3/cmm (157-399) 08/30/23 17:27 MPV 9.8 fL (7.4-10.4) 08/30/23 17:27 Neut % (Auto) 60.3 % 08/30/23 17: Lymph % (Auto) 24.2 % 08/30/23 17: Elbert % (Auto) 10.6 % 08/30/23 17:27 Eos % (Auto) 3.4 % 08/30/23 17:27 Baso % (Auto) 1.0 % 08/30/23 17: Neut # (Auto) 5.66 10^3/uL (1.8-7.7) 08/30/23 17:27 Lymph # (Auto) 2.3 10^3/uL (0.8-4.8) 08/30/23 17:27 Elbert # (Auto) 1.0 10^3/uL (0.2-0.9) H 08/30/23 17:27 Eos # (Auto) 0.3 10^3/uL (0.0-0.8) 08/30/23 17: Baso # (Auto) 0.1 10^3/uL (0.0-0.1) 08/30/23 17: Nucleated RBC % (auto) 0 % 08/30/23 17: Nucleated RBCs # 0.0 /100WBC 08/30/23 17: Sodium 144 mmol/L (136-145) 08/30/23 17: Potassium 4.0 mmol/L (3.5-5.1) 08/30/23 17: Chloride 108 mmol/L (98-107) H 08/30/23 17: Carbon Dioxide 24 mmol/L (22-29) 08/30/23 17: Anion Gap 16.0 (5-19) 08/30/23 17:27 BUN 4 mg/dL (6-20) L 08/30/23 17: Creatinine 1.0 mg/dL (0.7-1.2) 08/30/23 17:27 GFR Calculation 77.9 mL/min (90-130) L 08/30/23 17:27 Glucose 92 mg/dL (65-115) 08/30/23 17:27 Calculated Osmolality 295 mOsm/kg (285-295) 08/30/23 17:27 Calcium 9.4 mg/dL (8.5-10.5) 08/30/23 17:27 Total Bilirubin 0.5 mg/dL (0.15-1.2) 08/30/23 17:27 AST 28 U/L (0-40) 08/30/23 17: ALT 38 U/L (0-41) 08/30/23 17:27 Alkaline Phosphatase 86 U/L (40-130) 08/30/23 17:27 Total Protein 7.3 g/dL (6.6-8.7) 08/30/23 17:27 Albumin 4.6 g/dL (3.5-5.2) 08/30/23 17:27 Globulin 2.7 g/dL (1.3-4.6) 08/30/23 17:27 Salicylates < 0.3 mg/dL (3-10) L 08/30/23 17:27 Urine Opiates Screen Negative ng/mL (Negative) 08/30/23 17:36 Acetaminophen < 5.0 ug/mL (10-30) L 08/30/23 17:27 Ur Barbiturates Screen Negative ng/mL (Negative) 08/30/23 17:36 Ur Phencyclidine Scrn Negative ng/mL (Negative) 08/30/23 17:36 Ur Amphetamines Screen Negative ng/mL (Negative) 08/30/23 17:36 U Benzodiazepines Scrn Negative ng/mL (Negative) 08/30/23 17:36 Urine Cocaine Screen Negative ng/mL (Negative) 08/30/23 17:36 U Marijuana (THC) Screen Negative ng/mL (Negative) 08/30/23 17:36 Ethyl Alcohol < 10 mg/dL (0-10) 08/30/23 17:27 No radiology studies performed this visit Discharge Plan Discharge Patient Disposition: Admitted As Inpatient Clinical Impression: Suicidal ideation, Homicidal ideation, Auditory hallucination Condition: Stable Coding Level of Care Code ED Telephonic Nurse Case Manager for Wilder Long
[2023-08-30 17:20] VITALS: BP 138/92; PULSE 83; RESP 18; TEMP 36.6; O2SAT 95
[2023-08-30 17:33] LABS: Basophils # 0.1 10^3/uL (0.0-0.1); Eosinophils # 0.3 10^3/uL (0.0-0.8); Eosinophils % 3.4 %; Hematocrit 46.3 % (37-53); Lymphocytes # 2.3 10^3/uL (0.8-4.8); Lymphocytes % 24.2 %; Mean Corpuscular HGB Conc 34.3 g/dL (30-55); Mean Corpuscular Hemoglobin 32.7 pg (27-33); Mean Corpuscular Volume 95.3 fl (82-101); Mean Platelet Volume 9.8 fL (7.4-10.4); Monocytes % 10.6 %; Neutrophils # 5.66 10^3/uL (1.8-7.7); Neutrophils % 60.3 %; Nucleated Red Blood Cells % 0 %; Platelet Count 196 10^3/cmm (157-399); Red Blood Count 4.86 10^6/uL (3.85-5.65); Red Cell Distribution Width 13.2 % (12.1-15.1); White Blood Count 9.39 10^3/uL (3.29-11.43)
[2023-08-30 17:51] LABS: Alanine Aminotransferase 38 U/L (0-41); Albumin Level 4.6 g/dL (3.5-5.2); Alkaline Phosphatase 86 U/L (40-130); Aspartate Amino Transferase 28 U/L (0-40); Blood Urea Nitrogen 4 mg/dL (6-20); Calcium 9.4 mg/dL (8.5-10.5); Carbon Dioxide 24 mmol/L (22-29); Chloride 108 mmol/L (98-107); Globulin 2.7 g/dL (1.3-4.6); Glomerular Filtration Rate 77.9 mL/min (90-130); Glucose 92 mg/dL (65-115); Osmolality Calculated 295 mOsm/kg (285-295); Sodium 144 mmol/L (136-145); Total Bilirubin 0.5 mg/dL (0.15-1.2); Total Protein 7.3 g/dL (6.6-8.7)
[2023-08-30 18:02] LABS: Amphetamines Screen Urine Negative (Negative); Barbiturates Screen Urine Negative (Negative); Benzodiazepines Screen Urine Negative (Negative); Cocaine Screen Urine Negative (Negative); Opiate Screen Urine Negative (Negative); PCP Screen Urine Negative (Negative); THC Screen Urine Negative (Negative)
[2023-08-30 18:03] LABS: Acetaminophen < 5.0 ug/mL (10-30); Alcohol Level < 10 mg/dL (0-10); Salicylate < 0.3 mg/dL (3-10)
[2023-08-30 19:30] VITALS: BP 140/92; PULSE 60; RESP 18; TEMP 36.3; O2SAT 100
[2023-08-30 21:16] VITALS: BP 157/95; PULSE 89; RESP 17; O2SAT 98
[2023-08-30 21:31] VITALS: BP 140/92; PULSE 60; RESP 18; TEMP 36.3; O2SAT 100
[2023-08-30] MEDS: nicotine 2 mg Gum BUCCAL (21:45)
[2023-08-31 06:00] VITALS: BP 136/84; PULSE 69; RESP 17; TEMP 36.7; O2SAT 99
[2023-08-31] MEDS: nicotine 4 mg lozenge MUCOUS MEM ×7 (06:13→20:11)
--- NOTE | 2023-08-31 09:35 | PC.NURSE ---
PT CURRENTLY DENIES HI/VH. PT CURRENTLY ENDORSES SI STATING I HAVE SOME THOUGHTS BUT THEY AREN'T CONSTANT. WHEN ASKED IF HE HAD A PLAN PT STATED YEAH A GUN NO ACCESS HERE BUT I CAN DEFIANTLY GET ONE ON THE STREETS. PT ENDORSES AH STATING THAT HE HEARS THE BIRDS TALKING TO HIM AND THEY ARE SAYING DARRELL, DARRELL YOU ARE COOCOO . PT STATES HAS VARYING STORIES ON WHEN THE LAST TIME HE TOOK MEDICATION WAS. PT ENDORSES ANXIETY RATING IT A 7/10 ON A 0-10 SCALE WHERE 0 IS NONE AND 10 IS THE WORST POSSIBLE. PT DENIES NEED FOR PRN MEDICATIONS AND HAS VERBALIZED AGREEMENT TO COME TO STAFF WITH FURTHER NEEDS OR WORSENING SYMPTOMS OR NEW SA PLAN. PT CURRENTLY DENIES DEPRESSION. PT WAS COOPERATIVE WITH ASSESSMENT. PT CURRENT NEEDS ARE MET AT THIS TIME.
[2023-08-31 14:00] VITALS: BP 144/94; PULSE 92; RESP 20; TEMP 36.9; O2SAT 98
--- NOTE | 2023-08-31 17:28 | PC.NURSE ---
STAFF PERFORMED RANDOM ROOM CHECK. NO CONTRABAND FOUND IN PT ROOM. PT WAS COOPERATIVE WITH CHECK.
--- NOTE | 2023-08-31 18:27 | P.NPUHP_ITS ---
Providers/Chief Complaint 2 Admitting Physician: Sam Bond MD Chief Complaint: HI, SI HPI NPU History of Present Illness Emil Castro is a 53 year old male who presented to the emergency department with the following report: Chief Complaint: Psychiatric Symptoms Stated Complaint: HI, SI Time Seen by Provider: 08/30/23 17:10 Source: patient Mode of arrival: ambulatory Limitations: no limitations History of Present Illness: Patient is a 53-year-old male with extensive psychiatric history who presents to the emergency department complaining of suicidal ideations, homicidal ideations, and auditory hallucinations today. Patient recently was discharged from the NPU at the end of July, and states that other than receiving an injection he has not taken any medications. Initially he states he was doing okay though today was started to hear birds talk to him and had the overwhelming urge to shoot himself in the head. He also states that he has been having increased anger issues where he feels like he could shoot someone else in the head. He denies any illicit drug use other than smoking marijuana recently. He does have extensive past medical history of alcohol abuse. He denies drinking recently. When I ask him where he lives, he states that he has just been camping out lately. He does report a history of attempting suicide in the past, where he hung a rope over a tree and put his neck through it though did not go any further than this. He is not reporting any visual hallucinations or tactile hallucinations. No medical symptoms reported at this time. He requests to come into the psychiatric unit to be seen at this time. MD complaint: other (SI/HI/auditory hallucinations) Onset (ago): hour(s) Duration: constant History of same: Yes Relieving factors: none Exacerbating factors: none Associated symptoms: Reports auditory hallucinations, homicidal ideation and suicidal ideation; Deny visual hallucinations If self harm: admits thoughts of self harm and has plan. He was admitted to the neuropsychiatric unit for definitive treatment of those issues. He is known quite well through inpatient and some outpatient services. He has a long history of high utilization of services back when he was having more addiction issues and there were concerns often for malingering but in recent years his psychosis has become more prevalent and concern for malingering and antisocial personality disorder have greatly reduced. He was last seen in July 2023 and an excerpt of discharge summary is included below for context and that there have been limited substantive changes and he can be at times a poor historian. He presents reporting when he left he went back to his common behavior [place]. He said that things were going fairly well until the last couple of weeks when he was having auditory hallucinations feeling like birds were communicating with him and just feeling like the medication was not working. We discussed the fact that he had been on the Abilify Maintena which should have been renewed about 9 days ago. We discussed the risks, benefits and alternatives of resuming the long-acting injectable and specifically switching him to Abilify Asimtufii to give him an additional 30 days before medication issues might manifest. Otherwise he reports that he is looking forward to working with the social work team for any assistance they have for his psychosocial challenges. Per his 07/28/2023 [facility] inpatient psychiatric discharge summary: Discharge Diagnosis (1) Bipolar disorder with depression: Status: Inactive (2) Depression with suicidal ideation: Status: Resolved (3) Chronic schizophrenia: Status: Acute (4) Suicide attempt: Status: Resolved (5) Alcohol dependence, in remission: Status: Acute (6) Antisocial personality disorder: Status: Inactive (7) Suicidal ideation: Status: Resolved (8) Amphetamine abuse: Status: Acute Reason for Visit Reason for Visit: MHE Brief History: History of Present Illness Emil Castro is a 53 year old male with a previous history of bipolar disorder and otherwise specified, and schizophrenia along with methamphetamine abuse who presented to the emergency department with reoccurring thoughts about wanting to harm himself and had been gone 3 days ago. He had stated that he began to hear birds that were telling him to jump off of a bridge. He had reported that he had been abstaining from the use of alcohol for several months but had relapsed and had consumed 1 single beer. He reported no recent use of methamphetamine and his urine drug screen was negative on arrival here. He had reported that he was having some thoughts of cutting himself with a knife and states that he reports that he had stopped all of his medications for several months. He reports having frequent mood swings. He had endorsed a history of having racing thoughts. He reports that he has been distracted by his thoughts. He had reported having thoughts of others trying to harm him and stated that he was generally distrustful of others. He reports some difficulties with concentration. 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 Patient had reported no substantiative changes since his last hospitalization in November 2022. Psychiatric History: none currently, no outpatient follow ups, no new inpatient hospitalizations noted Current medications: none (previous medications include Abilify Maintena monthly, Abilify 15mg orally, NPU Discharge Summary from 11/29/22: History of Present Illness Emil Castro is a 52 year old male who presented to the emergency department with the following report: Chief Complaint: Psychiatric Symptoms Stated Complaint: SI Time Seen by Provider: 11/22/22 19:07 History of Present Illness: 52-year-old male with history of mood disorder and currently noncompliant with his medication presents emergency room with vague complaint of homicidal and suicidal ideation for the past few weeks. Patient reveals that he wants to shoot himself in the head and anticoagulant was attacking him. Patient denies any nausea, vomiting, chest pain, shortness of breath. Patient reveals that he is hearing voices from the birds. Associated symptoms: Reports auditory hallucinations, homicidal ideation and suicidal ideation; Deny visual hallucinations or delusions. He was admitted to the neuropsychiatric unit for definitive treatment of those issues. 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 He presents as he generally has recently with suicidal versus homicidal ideation and with limited resources off of medication. He presents reporting [place] and trying to manage things air without significant resources he reports he has been off his medication for some time but gives no real indicator of what led to that change. He was last seen here 6 weeks ago and has continued struggles with ayan stability, housing and direction for that matter. He presents today without irritability which is a common factor in his presentations. He reports a desire to get assistance resuming his medication but when we talked about things like the ERE program and a stronger [facility] presence, he was fairly ambivalent about that kind of increased resources. We discussed the risks, benefits and alternatives of restarting his Abilify at an appropriate dose and he understood agreed to proceed as documented in this note. We broached the subject of the possibility of a long-acting injection. An excerpt of his 10/08/2022 discharge summary is included below for context. Per his 10/08/2022 [facility] inpatient psychiatric discharge summary: Discharge Diagnosis (1) Bipolar disorder with depression: Status: Acute (2) Depression with suicidal ideation: Status: Resolved (3) Suicide attempt: Status: Acute (4) Alcohol dependence, in remission: Status: Acute (5) Drug-induced psychotic disorder: Status: Inactive (6) Antisocial personality disorder: Status: Inactive Reason for Visit Reason for Visit: SI Brief History: History of Present Illness Emil Castro is a 52 year old male who presented to the emergency department with the following report: Chief Complaint: Psychiatric Symptoms Stated Complaint: SI Time Seen by Provider: 10/02/22 11:11 Source: patient Mode of arrival: ambulatory History of Present Illness: 52-year-old male presents emergency room with complaint of suicidal ideations racing thoughts some hallucinations. Patient has a history of alcoholism as well as bipolar disorder. He states he stopped taking all of his medicines 5 or 6 months ago however he was hospitalized in early May of this year. He was discharged on May 08 and then readmitted on May 18. He did admit to drinking this morning he is still mildly agitated but not confrontational easily redirected. He cannot give me a specific reason as to why he stopped his medications. He did not particularly identify side effects he does states he did not get them refilled MD complaint: suicidal ideation Onset (ago): day(s) Duration: changing over time and getting worse History of same: Yes Relieving factors: none Exacerbating factors: alcohol Context: recent alcohol abuse Associated psychiatric symptoms: none Associated symptoms: Deny auditory hallucinations, visual hallucinations, delusions, depression, homicidal ideation, suicidal ideation or racing thoughts Treatments prior to arrival: none If self harm: admits thoughts of self harm and has plan. He was admitted to the neuropsychiatric unit for definitive treatment of those issues. Patient presents today much like he is presented recently. UDS was unremarkable with no noted active drug use. This is in jackson contrast to his presentations 2+ years ago such that he was very agitated by the question about addiction. We discussed the fact that this is part of our normal screening questions. Which did seem to settle help. He presented quite agitated and not very open to questioning endorsing that this irritability is the reason that he came to the hospital. Reporting that he is finding himself to be quite easily agitated. He reports that after his May hospitalization he discontinued the medication. He reports that he went and got a job but then all that fell apart. We discussed the issue with the medication and why he discontinued it and he reports that the Seroquel which previously was a stable and standard medication in his regimen made him too tired and unable to function. He reported an openness to a trial of a new medication and we discussed the risks, benefits and alternatives of starting Abilify 10 mg p.o. daily and he understood and agreed to proceed as is documented in this note. Otherwise he reported being homeless and having no real options and needing something to help with his agitation. An excerpt of his May 2022 hospitalization is included below for historical context. Per his 05/30/2022 [facility] inpatient psychiatric discharge summary: Discharge Diagnosis (1) Depression with suicidal ideation: Status: Resolved (2) Suicide attempt: Status: Acute (3) Alcohol dependence, in remission: Status: Acute (4) Drug-induced psychotic disorder: Status: Inactive (5) Antisocial personality disorder: Status: Chronic (6) Depressed bipolar I disorder: Status: Resolved Permanent problem details: Patient does not name and get his prescriptions filled when discharged. I am discontinuing all his meds and referring him to outpatient follow-up. Reason for Visit Reason for Visit: KASHIF SILVEIRA Brief History: History of Present Illness Emil Castro is a 51 year old male who presented to the emergency part with the following report: Chief Complaint: Psychiatric Symptoms Stated Complaint: SIEUGENIOE Time Seen by Provider: 05/17/22 17:36 Source: patient Mode of arrival: ambulatory Limitations: no limitations History of Present Illness: Patient is a 51-year-old male who is well-known to the emergency department here yet again for complaints of suicidal ideations, homicidal ideations, auditory hallucinations, and aggression/anger outbursts. Patient has had multiple NPU admissions over the past few months. Patient states he never has followed up with [facility] or a primary care provider after his discharges. Patient states he is taking his prescribed medications. He continues to drink alcohol. States he has a plan to hang himself with a rope. He states he feels homicidal towards men in general and sometimes wants to slit their throats. MD complaint: suicidal ideation and other (anger/agression, HI, auditory hallucinations) Duration: constant History of same: Yes Relieving factors: none Exacerbating factors: none Context: recent alcohol abuse Associated psychiatric symptoms: depression, suicidal ideation, homicidal ideation and auditory hallucinations Associated symptoms: Reports auditory hallucinations, depression, homicidal ideation and suicidal ideation; Deny visual hallucinations Treatments prior to arrival: none If self harm: admits thoughts of self harm and has plan. He was admitted to the Neuropsych Unit for definitive treatment of issues. He presents like he has recently with significant irritability reporting concerned he is going to hurt someone. He reported that his medication based on his discharge functioning that seems unlikely. However he continues significant difficulties with his housing and managing resources. The fairly distant story reporting openness to continue medication but not expressing any clarity as what he was to do next. We discussed working with treatment team on Friday to start to look more viable and sustainable housing and resources, which she agrees with but not emphatically. We agreed to restart his medication and see how he does with regular administration and probably consider increasing his bedtime Seroquel and he understood agreed to proceed as is documented in this note Per his 05/08/2022 [facility] inpatient psychiatric discharge summary: SI Brief History: History of Present Illness Emil Castro is a 51 year old male who presented to the emergency department with the following report: Chief Complaint: Psychiatric Symptoms Stated Complaint: SI Time Seen by Provider: 05/01/22 19:21 Source: patient Mode of arrival: ambulatory Limitations: no limitations History of Present Illness: 51-year-old male states he has a history of depression along with bipolar he had a suicide attempt impassable he states over the last 5 to 6 days he been having increased irritability along with suicidal thoughts he states he had thoughts of hanging himself from a tree. He states that he realized that he needed to get help or reason to harm himself he denies any worsening proving factors he is currently not on any meds. Associated symptoms: Reports depression and suicidal ideation He was admitted to the neuropsychiatric unit for definitive treatment of those issues. He presents today reporting that he had been spending most of his time after his last discharge in [place]. He reports that he has been working and doing fairly well. He reports initially he was taking his medication but at some point he stopped taking it and he could not give any reasonable explanation for why he did that or why he has a habit of doing that. He reports that he came back to [place] for some time off and to do some camping. He reports that he started having great irritability with people around him started having some really negative thoughts about reacting to his irritability. He thought then that it was best to come to the hospital before he did something that he regretted. We discussed the risk benefits and alternatives of resuming the medications he had previously done well on and he understood and agreed to proceed as is documented in this note. An excerpt of his last discharge summary is included below for context as he was not interested in details from a history standpoint. Per his 08/27/2021 [facility] inpatient psychiatric discharge summary: Discharge Diagnosis (1) Depression with suicidal ideation: Status: Resolved (2) Suicide attempt: Status: Acute (3) Alcohol dependence, in remission: Status: Acute (4) Drug-induced psychotic disorder: Status: Acute (5) Antisocial personality disorder: Status: Chronic (6) Depressed bipolar I disorder: Status: Resolved Permanent problem details: Patient does not name and get his prescriptions filled when discharged. I am discontinuing all his meds and referring him to outpatient follow-up. Reason for Visit Reason for Visit: SI Brief History: History of Present Illness Emil Castro is a 51 year old male who presented to the emergency department the following report: Chief complaint: Psychiatric Symptoms Stated complaint: SI Time Seen by Provider: 08/23/21 19:44 History of Present Illness: HPI: [51]yo patient w/ hx of depression presenting for suicidal ideation with plan. Patient plans to hang himself and decided against the last minute and came in to the ED. On arrival, the patient is AAOx3 and cooperative with my evaluation. No focal complaints of chest pain, shortness of breath, palpitations, N/V, focal GI/ complaints. Currently denies HI. No complaints of hallucinations. Onset: acute Duration: ongoing Location: home Severity: severe Associated symptoms: Deny chest pain, dyspnea, nausea, rash, palpitations or vomiting He was admitted to the neuropsychiatric unit for definitive treatment of those issues. Patient is well-known to the unit from multiple past inpatient stays the last of which was in June. He had previously been here much more often but had been having a modicum of success followed by some recent challenges again. He reports that after his last stay he had gone to [place] and was doing fairly well and told someone on convoluted story about how he was coming back here to get his mail arranged and that he decided once he was here that he was going to go ahead and say and he went to [employer] [facility] and they were lining up a place for him to stay in the next 2 or 3 days. But then frustrations and bad choices get the best of him which led him to presenting to the hospital yesterday. He reports another problem that led to him coming his way was that he has he will get his medication for about the last month or so he would not and could not explain whether this was related to him not following through on something to get refills or some other concern. Review of the chart suggested maybe he was given refills in the left in beginning of June. Unclear why that occurred. He was indicated to moving forward, getting his own place to [place] [facility] getting back on medication and trying to remain in the right direction. Documentation shows that he has been doing better when he comes to his addictive behavior however he reports sobriety extending back more than 6 months and I am unconvinced that that is accurate though. We discussed the risk benefits alternatives of getting his medications restarted and trying to assist him in stability on that front and he understood agreed proceed as is documented in this note. An excerpt of his June stay is included below for context. Hospital course 05/08/22 : He slowly acclimated to the individual, group and milieu therapies provided. He presented reporting irritability being off of medication. Seroquel was started at bedtime and 2 daytime doses were added. He was titrated up to 50 mg twice a day and 100 milligrams at night. He continues to have challenging living successes at home is becoming factor. He dorsoplantar this maneuver he has had some success. With his medications restarted and he did have significant improvement. He was able to contract for safety outside of the hospital prior to discharge. During the hospitalization, patient had routine laboratory studies which were within normal limits except for few outliers. Additionally there was a general medical evaluation which was also within normal limits and revealed no new acute processes. Discharge Summary: At the time of discharge, lethality was denied and psychosis was resolving. Mood and anxiety were well managed. Patient endorsed a plan to avoid all drugs of abuse and follow-up with the aftercare recommendations of the treatment team. Patient was evaluated and deemed to be absent credible lethality, and was voluntary and denied wanting any continued inpatient hospitalization, so he was discharged. Hospital Course 05/30/22: Discharge Summary: During the hospitalization, patient had routine laboratory studies which were within normal limits except for few outliers. Additionally there was a general medical evaluation which was also within normal limits and revealed no new acute processes. At the time of discharge, lethality was denied and psychosis was resolving. Mood and anxiety were well managed. Patient endorsed a plan to avoid all drugs of abuse and follow-up with the aftercare recommendations of the treatment team. Patient was evaluated and deemed to be absent credible lethality, and had achieved the maximum benefit from an inpatient hospitalization, so was discharged. Hospital Course He slowly acclimated to the individual, group and milieu therapies provided. He presented having had struggles with getting his medication and continues to struggle with having dependable secure housing. He was given Abilify at [facility] while in the hospital and discharged on Abilify Asimtufii. He worked with the social work team for appropriate outpatient follow-up. He had significant improvement during the stay and was able to contract for safety outside the hospital prior to discharge. During the hospitalization, the patient had routine laboratory studies which were within normal limits except for a few outliers. Additionally, there was a general medical evaluation which was also within normal limits and revealed no new acute processes. At the time of discharge, lethality was denied and psychosis was resolving. Mood and anxiety were well managed. The patient endorsed a plan to avoid all drugs of abuse and follow up with the aftercare recommendations of the treatment team. The patient was evaluated and deemed to be absent credible lethality and had achieved the maximum benefit from an inpatient hospitalization, and so was discharged. Meds NPU Home Medications Medication Instructions Recorded Confirmed Last Taken Type No Known Home Medications 08/30/23 08/30/23 Unknown History Allergies Allergy/AdvReac Type Severity Reaction Status Date / Time Penicillins Allergy ALGY-Hives Verified 08/30/23 17:27 PFS NPU 2 PFS: Medical History Bipolar disorder with depression Chronic alcohol abuse Alcohol dependence, in remission Bipolar 2 disorder Drug-induced psychotic disorder Malingering Antisocial personality disorder Social History Smoking and tobacco/nicotine status: current every day tobacco/nicotine user Mental Status Exam 2 MSE Comments: This is an obese white male in hospital scrubs with adequate grooming and eye contact.? No abnormal movements except for mild psychomotor retardation.?He was cooperative with exam in mild distress.? Speech was normal in rate and slightly decreased in volume.? Mood described as hearing voices. His affect was slightly subdued. Thought process was linear. Thought content: Patient endorsed fleeting suicidal thoughts with no plan and denied homicidal ideation. There were no delusions reported or but some paranoia and bizarre delusions noted, he endorsed auditory hallucinations and denied visual hallucinations. Attention and concentration were adequate and memory was mostly reliable but none were formally tested.? He is alert and oriented x to person and place.? Insight was poor and judgment is impaired. Impulse control is poor. Vitals/I&O/Wt Last Vital Signs Temp 98.4 F 08/31/23 14:00 Pulse 92 08/31/23 14:00 Resp 20 H 08/31/23 14:00 BP 144/94 08/31/23 14:00 Pulse Ox 98 08/31/23 14:00 O2 Del Method Room Air 08/31/23 06:00 Weight last 48 hrs Weight 118.161 kg Weight 127.006 kg Data NPU 08/30/23 17:27 08/30/23 17:27 A&P Assessment and plan (1) Bipolar disorder with depression: (2) Depression with suicidal ideation: (3) Chronic schizophrenia: (4) Suicide attempt: (5) Alcohol dependence, in remission: (6) Antisocial personality disorder: (7) Suicidal ideation: (8) Amphetamine abuse: Plan This is a 53-year-old white male with a long history of multiple inpatient hospitalizations often with previous concerns for malingering which have been greatly reduced in recent years who presents today reporting that he has not been taking his medication having missed his scheduled injection earlier this month and continues to be struggling with resources, homelessness and this hospitalization auditory hallucinations. 1. Restart Abilify 10 mg p.o. daily and we will order Abilify Asimtufii 960 mg IM every 2 monthly and hopefully start tomorrow or the next day but this will give us 2 months instead of 1 month before there are medication management concerns. 2. Continue to-15 minute checks, 3.? Encourage individual, group and milieu therapy. 4.? Encourage sober living treatment after discharge at the highest level of care to which he is willing to commit.? 5. Will attempt to gather collateral information. Involuntary Hold Information 2 96 Hour Hold: 96 Hour Involuntary Admission: No Attestations NPU 2 Medical Necessity Statement*: Inpatient hospitalization is medically necessary and deemed to ?be ?the clinically appropriate intervention ?at this time.? We will monitor/initiate medications and make changes as indicated.? The patient will be in the hospital for over 2 midnights.? The patient?s likely length of stay 5-7 days. Coding Level of Care Code Acute Code for [facility] Fwd Diagnoses Bipolar disorder with depression F31.9 Depression with suicidal ideation F32.A; R45.851 Chronic schizophrenia F20.9 Suicide attempt T14.91XA Alcohol dependence, in remission F10.21 Antisocial personality disorder F60.2 Suicidal ideation R45.851 Amphetamine abuse F15.10
[2023-08-31] MEDS: trazodone 50 mg Tablet PO (20:11)
[2023-08-31 20:32] VITALS: BP 155/103; PULSE 70; RESP 18; TEMP 36.3; O2SAT 98
[2023-09-01] MEDS: nicotine 4 mg lozenge MUCOUS MEM ×8 (05:55→20:25)
[2023-09-01 06:00] VITALS: BP 134/87; PULSE 77; RESP 15; TEMP 37.1; O2SAT 96
[2023-09-01] MEDS: ARIPiprazole 30 mg Tablet 15 MG PO (11:40)
[2023-09-01 14:00] VITALS: BP 145/88; PULSE 66; RESP 17; TEMP 36.5; O2SAT 99
--- NOTE | 2023-09-01 17:15 | P.NPUPN_ITS ---
Subjective NPU 2 Subjective: Patient presented today reporting that he is feeling okay having restarted oral medication. We discussed hopefully getting the Kamlesh Asimtufii starting tomorrow which will give him a 2-month window medication. He reported having a conversation with another county [place] he is due to surrender on September 12 secondary to not presenting for some hearing. He reports that he plans to do that he just wanted us to know the situation. We discussed having the social work team call and make sure we understand the situation and identify if there is any way we could be of assistance. He denies any side effects of the medication. Mental Status Exam 2 MSE Comments: This is an obese white male in hospital scrubs with adequate grooming and eye contact.? No abnormal movements except for mild psychomotor retardation.?He was cooperative with exam in mild distress.? Speech was normal in rate and slightly decreased in volume.? Mood described as hearing voices. His affect was slightly subdued. Thought process was linear. Thought content: Patient endorsed fleeting suicidal thoughts with no plan and denied homicidal ideation. There were no delusions reported or but some paranoia and bizarre delusions noted, he endorsed auditory hallucinations and denied visual hallucinations. Attention and concentration were adequate and memory was mostly reliable but none were formally tested.? He is alert and oriented x to person and place.? Insight was poor and judgment is impaired. Impulse control is poor. Vitals/I&O/Wt Last Vital Signs Temp 97.8 F 09/01/23 22:00 Pulse 67 09/01/23 22:00 Resp 17 09/01/23 22:00 BP 143/97 09/01/23 22:00 Pulse Ox 97 09/01/23 22:00 O2 Del Method Room Air 09/01/23 22:00 Weight last 48 hrs Weight 118.161 kg Data NPU 08/30/23 17:27 08/30/23 17:27 A&P Assessment and plan (1) Bipolar disorder with depression: (2) Depression with suicidal ideation: (3) Chronic schizophrenia: (4) Suicide attempt: (5) Alcohol dependence, in remission: (6) Antisocial personality disorder: (7) Suicidal ideation: (8) Amphetamine abuse: Plan This is a 53-year-old white male with a long history of multiple inpatient hospitalizations often with previous concerns for malingering which have been greatly reduced in recent years who presents today reporting that he has not been taking his medication having missed his scheduled injection earlier this month and continues to be struggling with resources, homelessness and this hospitalization auditory hallucinations. 1. Restart Abilify 10 mg p.o. daily and we ordered Abilify Asimtufii 960 mg IM every 2 monthly and it should be administered 09/02/2023 but this will give us 2 months instead of 1 month before there are medication management concerns. 2. Continue to-15 minute checks, 3.? Encourage individual, group and milieu therapy. 4.? Encourage sober living treatment after discharge at the highest level of care to which he is willing to commit.? 5. Will attempt to gather collateral information. Involuntary Hold Information 2 96 Hour Hold: 96 Hour Involuntary Admission: No Attestations NPU 2 Medical Necessity Statement*: Inpatient hospitalization is medically necessary and deemed to ?be ?the clinically appropriate intervention ?at this time.? We will monitor/initiate medications and make changes as indicated. The patient?s likely length of stay 4-6 days. Coding Level of Care Code Acute Code for [facility] Fwd Diagnoses Bipolar disorder with depression F31.9 Depression with suicidal ideation F32.A; R45.851 Chronic schizophrenia F20.9 Suicide attempt T14.91XA Alcohol dependence, in remission F10.21 Antisocial personality disorder F60.2 Suicidal ideation R45.851 Amphetamine abuse F15.10
[2023-09-01] MEDS: trazodone 50 mg Tablet PO (20:25)
[2023-09-01] MEDS: hyDROXYzine 25 mg Capsule 50 MG PO (20:26)
[2023-09-01 22:00] VITALS: BP 143/97; PULSE 67; RESP 17; TEMP 36.6; O2SAT 97
[2023-09-02 06:00] VITALS: BP 143/87; PULSE 71; RESP 18; TEMP 36.3; O2SAT 97
[2023-09-02] MEDS: nicotine 4 mg lozenge MUCOUS MEM ×7 (06:06→20:05)
[2023-09-02] MEDS: ARIPiprazole 30 mg Tablet 15 MG PO (08:11)
--- NOTE | 2023-09-02 09:37 | PC.NURSE ---
During assessment, patient stated that he is worried about the heat today. Patient said that he has suicidal thoughts with plan to use a gun. Patient denies rates depression at 7/10, denies anxiety, HI, and AVH.
[2023-09-02] MEDS: cetirizine 10 mg Tablet PO (10:24)
[2023-09-02 13:17] VITALS: BP 124/82; PULSE 86; RESP 16; TEMP 36.6; O2SAT 96
[2023-09-02] MEDS: ARIPiprazole Maintena 400 MG IM (15:17)
--- NOTE | 2023-09-02 15:28 | PC.NURSE ---
Administered abilify 400mg IM into patient's right deltoid muscle. Patient tolerated well. lot: [id number] exp: december 2025
--- NOTE | 2023-09-02 16:11 | PC.NURSE ---
This nurse called in Abilify Im 960mg injection to [facility]. Medication is not covered by patient's insurance. This nurse notified Dr. Bond who told this nurse to order the Abilify maintenna 400mg injection
--- NOTE | 2023-09-02 16:28 | P.NPUPN_ITS ---
Subjective NPU 2 Subjective: Patient presented today reporting that he is doing okay. We discussed the risk benefits and alternatives of giving the Abilify at [facility] given that the insurance is resistant to giving him the Abilify Asimtufii. He discussed the plan to discharge soon and spent some time enjoying his freedom before turning himself in on September 12 secondary to his warrant for not appearing. He accepts that this is the situation that he is created and plans on following through with this. Did discuss however that this was also his plan last time and that and he done that things would not be worse as they are now. He denied any side effects of the medication and we talked about making plan for discharge. Mental Status Exam 2 MSE Comments: This is an obese white male in hospital scrubs with adequate grooming and eye contact.? No abnormal movements except for mild psychomotor retardation.?He was cooperative with exam in mild distress.? Speech was normal in rate and slightly decreased in volume.? Mood described as feeling better. His affect was congruent and less subdued. Thought process was linear. Thought content: Patient endorsed fleeting suicidal thoughts with no plan and denied homicidal ideation. There were no delusions reported or but some paranoia and bizarre delusions noted, he endorsed auditory hallucinations and denied visual hallucinations. Attention and concentration were adequate and memory was mostly reliable but none were formally tested.? He is alert and oriented x to person and place.? Insight was poor and judgment is impaired. Impulse control is poor. Vitals/I&O/Wt Last Vital Signs Temp 97.9 F 09/02/23 13:17 Pulse 86 09/02/23 13:17 Resp 16 09/02/23 13:17 BP 124/82 09/02/23 13:17 Pulse Ox 96 09/02/23 13:17 O2 Del Method Room Air 09/02/23 13:17 Data NPU 08/30/23 17:27 08/30/23 17:27 A&P Assessment and plan (1) Bipolar disorder with depression: (2) Depression with suicidal ideation: (3) Chronic schizophrenia: (4) Suicide attempt: (5) Alcohol dependence, in remission: (6) Antisocial personality disorder: (7) Suicidal ideation: (8) Amphetamine abuse: Plan This is a 53-year-old white male with a long history of multiple inpatient hospitalizations often with previous concerns for malingering which have been greatly reduced in recent years who presents today reporting that he has not been taking his medication having missed his scheduled injection earlier this month and continues to be struggling with resources, homelessness and this hospitalization auditory hallucinations. 1. Restart Abilify 10 mg p.o. daily and we ordered Abilify Asimtufii 960 mg IM every 2 monthly and it should be administered 09/02/2023 but this will give us 2 months instead of 1 month before there are medication management concerns. Unfortunately insurance denied his Abilify Asimtufii so he was given Abilify Maintena 400 mg IM. 2. Continue to-15 minute checks, 3.? Encourage individual, group and milieu therapy. 4.? Encourage sober living treatment after discharge at the highest level of care to which he is willing to commit.? 5. His legal issues in [facility] continue and he is required to surrender to them on September 12 due to not previously showing in a parole/probation violation. Involuntary Hold Information 2 96 Hour Hold: 96 Hour Involuntary Admission: No Attestations NPU 2 Medical Necessity Statement*: Inpatient hospitalization is medically necessary and deemed to ?be ?the clinically appropriate intervention ?at this time.? We will monitor/initiate medications and make changes as indicated. The patient?s likely length of stay 1-3 days. Coding Level of Care Code Acute Code for [facility] Fwd Diagnoses Bipolar disorder with depression F31.9 Depression with suicidal ideation F32.A; R45.851 Chronic schizophrenia F20.9 Suicide attempt T14.91XA Alcohol dependence, in remission F10.21 Antisocial personality disorder F60.2 Suicidal ideation R45.851 Amphetamine abuse F15.10
[2023-09-02 19:40] VITALS: BP 121/71; PULSE 73; RESP 19; TEMP 36.8; O2SAT 95
[2023-09-02] MEDS: hyDROXYzine 25 mg Capsule 50 MG PO (20:05)
[2023-09-02] MEDS: trazodone 50 mg Tablet PO (20:05)
[2023-09-03 06:00] VITALS: BP 121/77; PULSE 71; RESP 19; TEMP 36.9; O2SAT 95
[2023-09-03] MEDS: nicotine 4 mg lozenge MUCOUS MEM ×4 (06:10→12:25)
[2023-09-03] MEDS: cetirizine 10 mg Tablet PO (08:25)
[2023-09-03] MEDS: ARIPiprazole 30 mg Tablet 15 MG PO (08:26)
--- NOTE | 2023-09-03 09:02 | PC.NURSE ---
UP IN THIS MORNING WALKING HALLWAYS. PT STATES HE SLEPT WELL LAST NIGHT AND FEELS BETTER AFTER TAKING MY SHOT. DENIES PAIN, DENIES SI/HI AND AVH AT THIS TIME. RATES ANXIETY 08/17 AND DEPRESSION 05/17. PT STATES HIS GOAL FOR THE DAY IS TO GO TO [facility] AND TRY TO IMPROVE MYSELF. ALL QUESTIONS ANSWERED AND SUPPORT VOICED.
--- NOTE | 2023-09-03 11:36 | W.PM.NPUDCS ---
Diagnoses at Discharge Discharge Diagnosis (1) Bipolar disorder with depression: Status: Inactive (2) Depression with suicidal ideation: Status: Resolved (3) Chronic schizophrenia: Status: Acute (4) Suicide attempt: Status: Resolved (5) Alcohol dependence, in remission: Status: Acute (6) Antisocial personality disorder: Status: Inactive (7) Suicidal ideation: Status: Resolved (8) Amphetamine abuse: Status: Acute Reason for Visit Reason for Visit: HI, SI Involuntary Hold Information 96 Hour Hold: 96 Hour Involuntary Admission: No Mental Status Exam MSE Comments: This is an obese white male in hospital scrubs with adequate grooming and eye contact.? No abnormal movements except for mild psychomotor retardation.?He was cooperative with exam in mild distress.? Speech was normal in rate and slightly decreased in volume.? Mood described as feeling better. His affect was congruent and less subdued. Thought process was linear. Thought content: Patient endorsed fleeting suicidal thoughts with no plan and denied homicidal ideation. There were no delusions reported or but some paranoia and bizarre delusions noted, he endorsed auditory hallucinations and denied visual hallucinations. Attention and concentration were adequate and memory was mostly reliable but none were formally tested.? He is alert and oriented x to person and place.? Insight was poor and judgment is impaired. Impulse control is poor. Discharge Data Studies Completed and Pending: Laboratory Results WBC 9.39 10^3/uL (3.2 9-11.43) 08/30/23 17: RBC 4.86 10^6/uL (3.8 5-5.65) 08/30/23 17:27 Hgb 15.90 g/dL (11.27 -16.99) 08/30/23 17:27 Hct 46.3 % (37-53) 08/30/23 17:27 MCV 95.3 fl (82-101) 08/30/23 17: MCH 32.7 pg (27-33) 08/30/23 17: MCHC 34.3 g/dL (30-55) 08/30/23 17:27 RDW 13.2 % (12.1-15.1 ) 08/30/23 17:27 Plt Count 196 10^3/cmm (157 -399) 08/30/23 17:27 MPV 9.8 fL (7.4-10.4) 08/30/23 17:27 Neut % (Auto) 60.3 % 08/30/23 17: Lymph % (Auto) 24.2 % 08/30/23 17: Sunflower % (Auto) 10.6 % 08/30/23 17: Eos % (Auto) 3.4 % 08/30/23 17:27 Baso % (Auto) 1.0 % 08/30/23 17: Neut # (Auto) 5.66 10^3/uL (1.8 -7.7) 08/30/23 17: Lymph # (Auto) 2.3 10^3/uL (0.8- 4.8) 08/30/23 17: Sunflower # (Auto) 1.0 10^3/uL (0.2- 0.9) H 08/30/23 17: Eos # (Auto) 0.3 10^3/uL (0.0- 0.8) 08/30/23 17: Baso # (Auto) 0.1 10^3/uL (0.0- 0.1) 08/30/23 17: Nucleated RBC % (a uto) 0 % 08/30/23 17: Nucleated RBCs # 0.0 /100WBC 08/30/23 17: Sodium 144 mmol/L (136-1 45) 08/30/23 17: Potassium 4.0 mmol/L (3.5-5 .1) 08/30/23 17: Chloride 108 mmol/L (98-10 7) H 08/30/23 17: Carbon Dioxide 24 mmol/L (22-29) 08/30/23 17:27 Anion Gap 16.0 (5-19) 08/30/23 17:27 BUN 4 mg/dL (6-20) L 08/30/23 17: Creatinine 1.0 mg/dL (0.7-1. 2) 08/30/23 17: GFR Calculation 77.9 mL/min (90-1 30) L 08/30/23 17:27 Glucose 92 mg/dL (65-115) 08/30/23 17:27 Calculated Osmolal ity 295 mOsm/kg (285- 295) 08/30/23 17:27 Calcium 9.4 mg/dL (8.5-10 .5) 08/30/23 17:27 Total Bilirubin 0.5 mg/dL (0.15-1 .2) 08/30/23 17:27 AST 28 U/L (0-40) 08/30/23 17:27 ALT 38 U/L (0-41) 08/30/23 17:27 Alkaline Phosphata se 86 U/L (40-130) 08/30/23 17:27 Total Protein 7.3 g/dL (6.6-8.7 ) 08/30/23 17:27 Albumin 4.6 g/dL (3.5-5.2 ) 08/30/23 17:27 Globulin 2.7 g/dL (1.3-4.6 ) 08/30/23 17:27 Salicylates < 0.3 mg/dL (3-10 ) L 08/30/23 17:27 Urine Opiates Scre en Negative ng/mL (N egative) 08/30/23 17:36 Acetaminophen < 5.0 ug/mL (10-3 0) L 08/30/23 17:27 Ur Barbiturates Sc reen Negative ng/mL (N egative) 08/30/23 17:36 Ur Phencyclidine S crn Negative ng/mL (N egative) 08/30/23 17:36 Ur Amphetamines Sc reen Negative ng/mL (N egative) 08/30/23 17:36 U Benzodiazepines Scrn Negative ng/mL (N egative) 08/30/23 17:36 Urine Cocaine Scre en Negative ng/mL (N egative) 08/30/23 17:36 U Marijuana (THC) Screen Negative ng/mL (N egative) 08/30/23 17:36 Ethyl Alcohol < 10 mg/dL (0-10) 08/30/23 17:27 Vitals: Last Vital Signs Temp 98.5 F 09/03/23 06:00 Pulse 71 09/03/23 06:00 Resp 19 H 09/03/23 06:00 BP 121/77 09/03/23 06:00 Pulse Ox 95 09/03/23 06:00 O2 Del Method Room Air 09/03/23 06:00 Discharge Plan Discharge Condition: Stable Prescriptions: New aripiprazole 15 mg tablet 15 mg PO DAILY 12 Days Qty: 12 0RF trazodone 50 mg Tablet 50 mg PO BEDTIME PRN (Reason: Sleep) 30 Days Qty: 30 1RF cetirizine 10 mg Tablet 10 mg PO DAILY 30 Days Qty: 30 1RF hydroxyzine pamoate 25 mg Capsule 50 mg PO Q6H PRN (Reason: Anxiety) 30 Days Qty: 120 1RF Abilify Maintena 400 mg suspension,extended rel recon 400 mg IM Q28D Qty: 1 1RF Rx Instructions: Next injection 09/30/2023 then as directed Discharge Orders: Discharge Order (Routine); Ordered 09/03/23 Ordered By: Sam Bond Discharge Diet: Regular Discharge Activity: Resume usual activity Patient Instructions: Opioid Safety Discharge Attestations NPU Time Spent in Discharge Care*: less than 30 min Specific Discharge Activities: Specific discharge activities: educating patient, discussing with case filler/social workers/dc planners, documenting/other paperwork and evaluating patient/reviewing data Status at Discharge: Cognitive status at discharge: cognitively intact, Behavioral status at discharge: cooperative, Coding Level of Care Code Acute Code for [facility] Fwd Diagnoses Bipolar disorder with depression F31.9 Depression with suicidal ideation F32.A; R45.851 Chronic schizophrenia F20.9 Suicide attempt T14.91XA Alcohol dependence, in remission F10.21 Antisocial personality disorder F60.2 Suicidal ideation R45.851 Amphetamine abuse F15.10
[2023-09-03 11:52] VITALS: BP 121/77; PULSE 71; RESP 19; TEMP 36.9; O2SAT 95
--- NOTE | 2023-09-03 12:41 | DCPLANNER ---
IMM was printed and explained to pt and given to pt and placed in file.
== END 2023-09-03 13:50 | disposition home or self-care (01) | DRG 885 ==
LOC: ER 19:27 → NP 20:19
PROVIDERS: Admitting Provider Psychiatry & Neurology Psychiatry; Emergency Provider Physician Assistant; Visit Provider Psychiatry & Neurology Psychiatry
DX: F31.9 Bipolar disorder, unspecified (principal); R45.851 Suicidal ideations; Z59.02 Unsheltered homelessness; F20.9 Schizophrenia, unspecified; F15.10 Other stimulant abuse, uncomplicated; F60.2 Antisocial personality disorder; Z72.0 Tobacco use
CPT/HCPCS: 36415; 80053; 80306; 80307; 85025; 96372; 97150; 97165; 99285

== ENCOUNTER 2023-09-24 16:06 | Emergency (ER) | payer MEDICARE, MEDICAID, SELFPAY ==
[2023-09-24 16:21] VITALS: BP 133/82; PULSE 70; RESP 18; TEMP 36.7; O2SAT 99
[2023-09-24 16:36] LABS: Basophils # 0.1 10^3/uL (0.0-0.1); Basophils % 0.9 %; Eosinophils # 0.2 10^3/uL (0.0-0.8); Eosinophils % 2.3 %; Hematocrit 44.8 % (37-53); Lymphocytes # 1.9 10^3/uL (0.8-4.8); Lymphocytes % 20.3 %; Mean Corpuscular Hemoglobin 33.3 pg (27-33); Mean Corpuscular Volume 95.1 fl (82-101); Mean Platelet Volume 10.2 fL (7.4-10.4); Neutrophils # 6.07 10^3/uL (1.8-7.7); Neutrophils % 65.1 %; Nucleated Red Blood Cells % 0 %; Platelet Count 185 10^3/cmm (157-399); Red Blood Count 4.71 10^6/uL (3.85-5.65); Red Cell Distribution Width 13.2 % (12.1-15.1); White Blood Count 9.31 10^3/uL (3.29-11.43)
[2023-09-24 16:46] LABS: Amphetamines Screen Urine Negative (Negative); Barbiturates Screen Urine Negative (Negative); Benzodiazepines Screen Urine Negative (Negative); Cocaine Screen Urine Negative (Negative); Opiate Screen Urine Negative (Negative); PCP Screen Urine Negative (Negative); THC Screen Urine Positive (Negative)
[2023-09-24 16:56] LABS: Alanine Aminotransferase 23 U/L (0-41); Albumin Level 4.6 g/dL (3.5-5.2); Alkaline Phosphatase 77 U/L (40-130); Anion Gap 15.5 (5-19); Aspartate Amino Transferase 21 U/L (0-40); Blood Urea Nitrogen 7 mg/dL (6-20); Calcium 8.9 mg/dL (8.5-10.5); Carbon Dioxide 25 mmol/L (22-29); Chloride 104 mmol/L (98-107); Creatinine Clr Calc Pharmacy 126.8075; Globulin 2.8 g/dL (1.3-4.6); Glomerular Filtration Rate 87.9 mL/min (90-130); Glucose 89 mg/dL (65-115); Osmolality Calculated 289 mOsm/kg (285-295); Potassium 3.5 mmol/L (3.5-5.1); Sodium 141 mmol/L (136-145); Total Bilirubin 0.9 mg/dL (0.15-1.2); Total Protein 7.4 g/dL (6.6-8.7)
[2023-09-24 17:00] LABS: Acetaminophen < 5.0 ug/mL (10-30); Alcohol Level < 10 mg/dL (0-10); Salicylate < 0.3 mg/dL (3-10)
--- NOTE | 2023-09-24 17:13 | W.ED.PSYCHS ---
Documented by User: Tico Espana DO 09/27/23 14:26 HPI - Psych General: Chief Complaint: Psychiatric Symptoms Stated Complaint: SI, crisis center referral Time Seen by Provider: 09/24/23 16:07 Source: patient Mode of arrival: ambulatory History of Present Illness: 53-year-old male presents emergency room with complaint of suicidal ideation. He is approaching his brother's birthday and is contemplating hanging himself. He was recently hospitalized for suicidal ideation. He went to the [facility] unit today and told him that he had lied when he was discharged so that he could be discharged. MD complaint: suicidal ideation Onset (ago): day(s) Duration: constant Relieving factors: none Exacerbating factors: none Context: significant life stressor Associated psychiatric symptoms: depression and suicidal ideation Associated symptoms: Reports depression and suicidal ideation If self harm: admits thoughts of self harm and has plan Review of Systems Const: Denies: fever(s) or chills Card: Denies: chest pain Resp: Denies: dyspnea GI: Denies: abdominal pain : Denies: dysuria, urinary frequency or urinary urgency Musc: Denies: neck pain or back pain Skin/Breast: Denies: rash Psych: Reports: depression and suicidal ideation PFS ED PFSH: Medical History Bipolar disorder with depression Chronic alcohol abuse Alcohol dependence, in remission Bipolar 2 disorder Drug-induced psychotic disorder Malingering Antisocial personality disorder Social History Smoking and tobacco/nicotine status: current every day tobacco/nicotine user Physical Exam Const: COMMON NORMALS: no acute distress GENERAL APPEARANCE: cooperative and comfortable ORIENTATION/CONSCIOUSNESS: Yes awake, Yes oriented to person, Yes oriented to place and Yes oriented to time HENMT: COMMON NORMALS: normocephalic, atraumatic and hearing grossly normal bilaterally HEAD & SCALP: normocephalic and atraumatic Resp: COMMON NORMALS: normal respiratory effort, No retractions, No use of accessory muscles and clear to auscultation bilaterally AUSCULTATION: clear to auscultation bilaterally Cardio: COMMON NORMALS: regular rate, regular rhythm and No murmurs present (Cardio) RATE: regular rate RHYTHM: regular rhythm GI: COMMON NORMALS: Soft to palpation and No hepatosplenomegaly present AUSCULTATION: Yes normoactive bowel sounds PALPATION: Yes Soft to palpation, No Tenderness to palpation present (GI), No Guarding due to palpation present (GI) and Yes No hepatosplenomegaly present Extremity: COMMON NORMALS: normal to inspection, capillary refill normal, no clubbing, cyanosis or edema, no calf tenderness and no pedal edema Neuro: SENSORIUM/ORIENTATION: Yes oriented to person, Yes oriented to place and Yes oriented to time Skin: COMMON NORMALS: no rashes or lesions noted GENERAL SKIN EXAM: no rashes or lesions noted Course Vital Signs: Vital signs: Vital Signs Temperature 98.0 F 09/25/23 08:14 Pulse Rate 58 L 09/25/23 08:14 Respiratory Rate 17 09/25/23 08:14 Blood Pressure 142/86 09/25/23 08:14 Pulse Oximetry 99 09/25/23 08:14 Oxygen Delivery Me thod Room Air 09/25/23 08:14 MDM - Psych Medical Decision Making Care signed out to Dr. Lu at change of shift. See final notes for diagnosis and disposition. Care transferred to myself at shift change, [place] accepting patient to Norma Barrios NP accepting provider. Lab Data 09/24/23 16:30 09/24/23 16:30 Laboratory Results WBC 9.31 10^3/uL (3.29-11.43) 09/24/23 16:30 RBC 4.71 10^6/uL (3.85-5.65) 09/24/23 16:30 Hgb 15.70 g/dL (11.27-16.99) 09/24/23 16:30 Hct 44.8 % (37-53) 09/24/23 16:30 MCV 95.1 fl (82-101) 09/24/23 16:30 MCH 33.3 pg (27-33) H 09/24/23 16:30 MCHC 35.0 g/dL (30-55) 09/24/23 16:30 RDW 13.2 % (12.1-15.1) 09/24/23 16:30 Plt Count 185 10^3/cmm (157-399) 09/24/23 16:30 MPV 10.2 fL (7.4-10.4) 09/24/23 16:30 Neut % (Auto) 65.1 % 09/24/23 16:30 Lymph % (Auto) 20.3 % 09/24/23 16:30 [place] % (Auto) 11.0 % 09/24/23 16:30 Eos % (Auto) 2.3 % 09/24/23 16:30 Baso % (Auto) 0.9 % 09/24/23 16:30 Neut # (Auto) 6.07 10^3/uL (1.8-7.7) 09/24/23 16:30 Lymph # (Auto) 1.9 10^3/uL (0.8-4.8) 09/24/23 16:30 [place] # (Auto) 1.0 10^3/uL (0.2-0.9) H 09/24/23 16:30 Eos # (Auto) 0.2 10^3/uL (0.0-0.8) 09/24/23 16:30 Baso # (Auto) 0.1 10^3/uL (0.0-0.1) 09/24/23 16:30 Nucleated RBC % (auto) 0 % 09/24/23 16:30 Nucleated RBCs # 0.0 /100WBC 09/24/23 16:30 Sodium 141 mmol/L (136-145) 09/24/23 16:30 Potassium 3.5 mmol/L (3.5-5.1) 09/24/23 16:30 Chloride 104 mmol/L (98-107) 09/24/23 16:30 Carbon Dioxide 25 mmol/L (22-29) 09/24/23 16:30 Anion Gap 15.5 (5-19) 09/24/23 16:30 BUN 7 mg/dL (6-20) 09/24/23 16:30 Creatinine 0.9 mg/dL (0.7-1.2) 09/24/23 16:30 GFR Calculation 87.9 mL/min (90-130) L 09/24/23 16:30 Glucose 89 mg/dL (65-115) 09/24/23 16:30 Calculated Osmolality 289 mOsm/kg (285-295) 09/24/23 16:30 Calcium 8.9 mg/dL (8.5-10.5) 09/24/23 16:30 Total Bilirubin 0.9 mg/dL (0.15-1.2) 09/24/23 16:30 AST 21 U/L (0-40) 09/24/23 16:30 ALT 23 U/L (0-41) 09/24/23 16:30 Alkaline Phosphatase 77 U/L (40-130) 09/24/23 16:30 Total Protein 7.4 g/dL (6.6-8.7) 09/24/23 16:30 Albumin 4.6 g/dL (3.5-5.2) 09/24/23 16:30 Globulin 2.8 g/dL (1.3-4.6) 09/24/23 16:30 TSH 1.34 uIU/mL (0.27-4.20) 09/24/23 16:30 Urine Color Yellow (Yellow) 09/24/23 20:30 Urine Appearance Clear (CLEAR) 09/24/23 20:30 Urine pH 6.5 (5-7) 09/24/23 20:30 Ur Specific [place] 1.015 (1.005-1.030) 09/24/23 20:30 Urine Protein Neg (Negative) 09/24/23 20:30 Urine Glucose (UA) Norm (Normal) 09/24/23 20:30 Urine Ketones Negative (Negative) 09/24/23 20:30 Urine Blood Neg (Negative) 09/24/23 20:30 Urine Nitrate Negative (Negative) 09/24/23 20:30 Urine Bilirubin Neg (Negative) 09/24/23 20:30 Urine Urobilinogen 1 mg/dL (Negative) H 09/24/23 20:30 Ur Leukocyte Esterase Negative (Negative) 09/24/23 20:30 Salicylates < 0.3 mg/dL (3-10) L 09/24/23 16:30 Urine Opiates Screen Negative ng/mL (Negative) 09/24/23 20:30 Acetaminophen < 5.0 ug/mL (10-30) L 09/24/23 16:30 Ur Barbiturates Screen Negative ng/mL (Negative) 09/24/23 20:30 Ur Phencyclidine Scrn Negative ng/mL (Negative) 09/24/23 20:30 Ur Amphetamines Screen Negative ng/mL (Negative) 09/24/23 20:30 U Benzodiazepines Scrn Negative ng/mL (Negative) 09/24/23 20:30 Urine Cocaine Screen Negative ng/mL (Negative) 09/24/23 20:30 U Marijuana (THC) Screen Positive ng/mL (Negative) H 09/24/23 20:30 Ethyl Alcohol < 10 mg/dL (0-10) 09/24/23 16:30 Influenza Type A Ag negative (Negative) 09/24/23 20:30 Influenza Type B Ag negative (Negative) 09/24/23 20:30 SARS-CoV-2 Ag (Rapid) negative (Negative) 09/24/23 20:30 Discharge Plan Discharge Patient Disposition: Xfer Psychiatric Hosp Clinical Impression: Suicidal ideation Condition: Stable Patient Instructions: Opioid Safety, Pain Management Coding Level of Care Code ED Manager Of Change for Chg Fwd Documented by User: Mejia Lu DO 09/25/23 02:56 HPI - Psych General: Chief Complaint: Psychiatric Symptoms Stated Complaint: SI, crisis center referral Time Seen by Provider: 09/24/23 16:07 [facility] ED PFSH: Medical History Bipolar disorder with depression Chronic alcohol abuse Alcohol dependence, in remission Bipolar 2 disorder Drug-induced psychotic disorder Malingering Antisocial personality disorder Social History Smoking and tobacco/nicotine status: current every day tobacco/nicotine user Course Vital Signs: Vital signs: Vital Signs Temperature 98.0 F 09/25/23 08:14 Pulse Rate 58 L 09/25/23 08:14 Respiratory Rate 17 09/25/23 08:14 Blood Pressure 142/86 09/25/23 08:14 Pulse Oximetry 99 09/25/23 08:14 Oxygen Delivery Me thod Room Air 09/25/23 08:14 MDM - Psych Medical Decision Making Care transferred to myself at shift change, [place]fred[place] accepting patient to Norma Barrios NP accepting provider. Lab Data 09/24/23 16:30 09/24/23 16:30 Laboratory Results WBC 9.31 10^3/uL (3.29-11.43) 09/24/23 16:30 RBC 4.71 10^6/uL (3.85-5.65) 09/24/23 16:30 Hgb 15.70 g/dL (11.27-16.99) 09/24/23 16:30 Hct 44.8 % (37-53) 09/24/23 16:30 MCV 95.1 fl (82-101) 09/24/23 16:30 MCH 33.3 pg (27-33) H 09/24/23 16:30 MCHC 35.0 g/dL (30-55) 09/24/23 16:30 RDW 13.2 % (12.1-15.1) 09/24/23 16:30 Plt Count 185 10^3/cmm (157-399) 09/24/23 16:30 MPV 10.2 fL (7.4-10.4) 09/24/23 16:30 Neut % (Auto) 65.1 % 09/24/23 16:30 Lymph % (Auto) 20.3 % 09/24/23 16:30 [place] % (Auto) 11.0 % 09/24/23 16:30 Eos % (Auto) 2.3 % 09/24/23 16:30 Baso % (Auto) 0.9 % 09/24/23 16:30 Neut # (Auto) 6.07 10^3/uL (1.8-7.7) 09/24/23 16:30 Lymph # (Auto) 1.9 10^3/uL (0.8-4.8) 09/24/23 16:30 [place] # (Auto) 1.0 10^3/uL (0.2-0.9) H 09/24/23 16:30 Eos # (Auto) 0.2 10^3/uL (0.0-0.8) 09/24/23 16:30 Baso # (Auto) 0.1 10^3/uL (0.0-0.1) 09/24/23 16:30 Nucleated RBC % (auto) 0 % 09/24/23 16:30 Nucleated RBCs # 0.0 /100WBC 09/24/23 16:30 Sodium 141 mmol/L (136-145) 09/24/23 16:30 Potassium 3.5 mmol/L (3.5-5.1) 09/24/23 16:30 Chloride 104 mmol/L (98-107) 09/24/23 16:30 Carbon Dioxide 25 mmol/L (22-29) 09/24/23 16:30 Anion Gap 15.5 (5-19) 09/24/23 16:30 BUN 7 mg/dL (6-20) 09/24/23 16:30 Creatinine 0.9 mg/dL (0.7-1.2) 09/24/23 16:30 GFR Calculation 87.9 mL/min (90-130) L 09/24/23 16:30 Glucose 89 mg/dL (65-115) 09/24/23 16:30 Calculated Osmolality 289 mOsm/kg (285-295) 09/24/23 16:30 Calcium 8.9 mg/dL (8.5-10.5) 09/24/23 16:30 Total Bilirubin 0.9 mg/dL (0.15-1.2) 09/24/23 16:30 AST 21 U/L (0-40) 09/24/23 16:30 ALT 23 U/L (0-41) 09/24/23 16:30 Alkaline Phosphatase 77 U/L (40-130) 09/24/23 16:30 Total Protein 7.4 g/dL (6.6-8.7) 09/24/23 16:30 Albumin 4.6 g/dL (3.5-5.2) 09/24/23 16:30 Globulin 2.8 g/dL (1.3-4.6) 09/24/23 16:30 TSH 1.34 uIU/mL (0.27-4.20) 09/24/23 16:30 Urine Color Yellow (Yellow) 09/24/23 20:30 Urine Appearance Clear (CLEAR) 09/24/23 20:30 Urine pH 6.5 (5-7) 09/24/23 20:30 Ur Specific [place] 1.015 (1.005-1.030) 09/24/23 20:30 Urine Protein Neg (Negative) 09/24/23 20:30 Urine Glucose (UA) Norm (Normal) 09/24/23 20:30 Urine Ketones Negative (Negative) 09/24/23 20:30 Urine Blood Neg (Negative) 09/24/23 20:30 Urine Nitrate Negative (Negative) 09/24/23 20:30 Urine Bilirubin Neg (Negative) 09/24/23 20:30 Urine Urobilinogen 1 mg/dL (Negative) H 09/24/23 20:30 Ur Leukocyte Esterase Negative (Negative) 09/24/23 20:30 Salicylates < 0.3 mg/dL (3-10) L 09/24/23 16:30 Urine Opiates Screen Negative ng/mL (Negative) 09/24/23 20:30 Acetaminophen < 5.0 ug/mL (10-30) L 09/24/23 16:30 Ur Barbiturates Screen Negative ng/mL (Negative) 09/24/23 20:30 Ur Phencyclidine Scrn Negative ng/mL (Negative) 09/24/23 20:30 Ur Amphetamines Screen Negative ng/mL (Negative) 09/24/23 20:30 U Benzodiazepines Scrn Negative ng/mL (Negative) 09/24/23 20:30 Urine Cocaine Screen Negative ng/mL (Negative) 09/24/23 20:30 U Marijuana (THC) Screen Positive ng/mL (Negative) H 09/24/23 20:30 Ethyl Alcohol < 10 mg/dL (0-10) 09/24/23 16:30 Influenza Type A Ag negative (Negative) 09/24/23 20:30 Influenza Type B Ag negative (Negative) 09/24/23 20:30 SARS-CoV-2 Ag (Rapid) negative (Negative) 09/24/23 20:30 All radiology interpretation(s) finalized by discharge Discharge Plan Discharge Patient Disposition: Xfer Psychiatric Hosp Clinical Impression: Suicidal ideation Condition: Stable Patient Instructions: Opioid Safety, Pain Management Coding Level of Care Code ED Manager Of Change for Wilder Long
[2023-09-24 18:39] VITALS: BP 122/81; PULSE 62; RESP 16; TEMP 36.8; O2SAT 99
--- NOTE | 2023-09-24 20:08 | ECG_ITS ---
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 Measurements Intervals [place] Rate: 58 P: 69 NC: 214 QRS: -35 QRSD: 117 T: 48 QT: 422 QTc: 417 Interpretive Statements SINUS BRADYCARDIA WITH FIRST DEGREE AV BLOCK LEFT AXIS DEVIATION [QRS AXIS < -30] INCOMPLETE RIGHT BUNDLE BRANCH BLOCK [90+ ms QRS DURATION, TERMINAL R IN V1/V2, 40+ ms S IN I/aVL/V4/V5/V6] Compared to ECG 07/20/2023 19:26:22 First degree AV block now present Left-axis deviation now present Incomplete right bundle-branch block now present Sinus rhythm no longer present Left anterior fascicular block no longer present Electronically Signed On 09-25-2023 22:18:31 CDT by Byron Jones M.D. [id number]
[2023-09-24 20:16] VITALS: BP 108/70; PULSE 63; RESP 18; TEMP 36.6; O2SAT 97
[2023-09-24 20:33] LABS: Add Urine Microscopic? NO; Charge for UA Resulting for Rev
[2023-09-24 20:39] LABS: Bilirubin Urine Neg (Negative); Blood Urine Neg (Negative); Glucose Urine UA Norm (Normal); Ketones Urine Negative (Negative); Leukocyte Esterase Urine Negative (Negative); Nitrate Urine Negative (Negative); Protein Urine Neg (Negative); Specific Gravity, Urine 1.015 (1.005-1.030); Urine Appearance Clear (CLEAR); Urine Color Yellow (Yellow); Urobilinogen Urine 1 mg/dL (Negative); pH Urine 6.5 (5-7)
[2023-09-24 20:47] LABS: Amphetamines Screen Urine Negative (Negative); Barbiturates Screen Urine Negative (Negative); Benzodiazepines Screen Urine Negative (Negative); Cocaine Screen Urine Negative (Negative); Opiate Screen Urine Negative (Negative); PCP Screen Urine Negative (Negative); THC Screen Urine Positive (Negative)
[2023-09-24 20:49] LABS: Thyroid Stimulating Hormone 1.34 uIU/mL (0.27-4.20)
[2023-09-24 20:54] LABS: Influenza A by IFA negative (Negative); Influenza B by IFA negative (Negative)
[2023-09-24 20:55] LABS: SARS Covid-2 Antigen negative (Negative)
--- NOTE | 2023-09-24 22:38 | DCPLANNER ---
Called [facility] at 2153, spoke to Rex. He said they had beds available. Paperwork faxed at [phone]. Jacqueline Aguero called at [phone], patient was accepted by Norma Barrios APRN. At 2230, I spoke to Audi Vaughn, program supervisor at [facility], he said they will not be able to transport patient until morning, but will be able to get him out right at 0700.
[2023-09-25 08:14] VITALS: BP 142/86; PULSE 58; RESP 17; TEMP 36.7; O2SAT 99
== END 2023-09-25 08:16 ==
PROVIDERS: Emergency Medicine; Emergency Provider Family Medicine
DX: R45.851 Suicidal ideations (principal); Z72.0 Tobacco use
CPT/HCPCS: 36415; 80053; 80306; 80307; 81003; 84443; 85025; 87426; 87804; 93005; 99285

== ENCOUNTER 2023-12-27 14:29 | Inpatient (IN) | payer MEDICARE, MEDICAID, SELFPAY ==
[2023-12-27 14:34] VITALS: BP 127/79; PULSE 110; RESP 16; TEMP 36.6; O2SAT 97
--- NOTE | 2023-12-27 14:45 | ED.C_ITS ---
HPI - Psych 2 General: Chief Complaint: Psychiatric Symptoms Stated Complaint: SI Time Seen by Provider: 12/27/23 14:39 History of Present Illness: 54-year-old man who presents to the [facility] with suicidal thoughts. He says he recently just got out of alf. He says he had no place to go and he is no longer on his depression medications. He has a plan to either take pills or hang himself. Related Data Previous Rx's Medication Instructions Recorded aripiprazole 400 mg intramuscular 400 mg IM Q28D #1 ea 09/03/23 suspension,extended release (Abilify Maintena) cetirizine 10 mg tablet 10 mg PO DAILY 30 days #30 tabs 09/03/23 hydroxyzine pamoate 25 mg capsule 50 mg (2 x 25 mg) PO Q6H PRN 09/03/23 Anxiety 30 days #120 caps trazodone 50 mg tablet 50 mg PO BEDTIME PRN Sleep 30 days 09/03/23 #30 tabs Allergies Allergy/AdvReac Type Severity Reaction Status Date / Time Penicillins Allergy ALGY-Hives Verified 09/24/23 16:24 Review of Systems 2 Narrative: Constitutional symptoms: Negative except as documented in HPI. Skin symptoms: Negative except as documented in HPI. Eye symptoms: Negative except as documented in HPI. ENMT symptoms: Negative except as documented in HPI. Respiratory symptoms: Negative except as documented in HPI. Cardiovascular symptoms: Negative except as documented in HPI. Gastrointestinal symptoms: Negative except as documented in HPI. Genitourinary symptoms: Negative except as documented in HPI. Musculoskeletal symptoms: Negative except as documented in HPI. Neurologic symptoms: Negative except as documented in HPI. Psychiatric symptoms: Negative except as documented in HPI. Endocrine symptoms: Negative except as documented in HPI. PFSH ED 2 PFSH: Medical History Bipolar disorder with depression Chronic alcohol abuse Alcohol dependence, in remission Bipolar 2 disorder Drug-induced psychotic disorder Malingering Antisocial personality disorder Social History Smoking and tobacco/nicotine status: current every day tobacco/nicotine user Physical Exam 2 Narrative: EXAM NARRATIVE: General: Alert. no acute distress Skin: Warm, dry Head: Normocephalic, atraumatic. Neck: Supple, trachea midline. Eye: Extraocular movements are intact. Ears, nose, mouth and throat: Oral mucosa moist. Cardiovascular: Regular rate and rhythm, Normal peripheral perfusion. Respiratory: Lungs are clear to auscultation, respirations are non-labored, breath sounds are equal, Symmetrical chest wall expansion. Gastrointestinal: Soft, Nontender, Non distended, Normal bowel sounds. Musculoskeletal: Normal ROM, no deformity. Neurological: Alert and oriented to person, place, time, and situation, No focal neurological deficit observed. Psychiatric: Cooperative, depressed, expresses suicidal ideation. Course 2 Vital Signs: Vital signs: Vital Signs Temperature 97.8 F 12/27/23 14:34 Pulse Rate 110 H 12/27/23 14:34 Respiratory Rate 16 12/27/23 14:34 Blood Pressure 127/79 12/27/23 14:34 Pulse Oximetry 97 12/27/23 14:34 Oxygen Delivery Me thod Room Air 12/27/23 14:34 MDM - Psych Medical Decision Making Differential diagnosis: Patient with reported depression and suicidal ideation. concerns for infection, alcohol intoxication, cardiac issues or other medical problems prior to psychiatric admission. Workup: labwork, ekg ordered to evaluate the pathologies and to clear the patient medically prior to psychiatric admission EKG: Time 1512. Rate 98. Normal sinus rhythm, No ST-T changes, no ectopy, normal MD & QRS intervals, This was reviewed and interpreted by myself the ER physician at 1515 Lab Review: Laboratory results were reviewed and interpreted by myself the emergency room physician. Lab review: - Medically cleared. - EKG shows no ischemic changes. - Blood alcohol level is 66, -Tylenol and salicylate levels are negative. -Urinalysis and urine drug screen are pending - No anemia. - BUN and creatinine are within normal limits. Consultation: I spoke with Dr. Bond who is on-call for psychiatry who agrees to admission. Assessment and plan: Suicidal ideation Depression -Admission to neuropsychiatric unit for continued evaluation and treatment. - All lab work was reviewed and interpreted personally by myself, the ER physician - Evaluation and treatment of this problem were appropriate in the emergency setting Lab Data 12/27/23 14:50 12/27/23 14:50 Laboratory Results WBC 12.03 10^3/uL (3.29-11.43) H 12/27/23 14:50 RBC 4.82 10^6/uL (3.85-5.65) 12/27/23 14:50 Hgb 15.50 g/dL (11.27-16.99) 12/27/23 14:50 Hct 45.2 % (37-53) 12/27/23 14:50 MCV 93.8 fl (82-101) 12/27/23 14:50 MCH 32.2 pg (27-33) 12/27/23 14:50 MCHC 34.3 g/dL (30-55) 12/27/23 14:50 RDW 12.4 % (12.1-15.1) 12/27/23 14:50 Plt Count 211 10^3/cmm (157-399) 12/27/23 14:50 MPV 10.2 fL (7.4-10.4) 12/27/23 14:50 Neut % (Auto) 71.5 % 12/27/23 14:50 Lymph % (Auto) 17.2 % 12/27/23 14:50 [place] % (Auto) 8.8 % 12/27/23 14:50 Eos % (Auto) 1.3 % 12/27/23 14:50 Baso % (Auto) 0.8 % 12/27/23 14:50 Neut # (Auto) 8.59 10^3/uL (1.8-7.7) H 12/27/23 14:50 Lymph # (Auto) 2.1 10^3/uL (0.8-4.8) 12/27/23 14:50 [place] # (Auto) 1.1 10^3/uL (0.2-0.9) H 12/27/23 14:50 Eos # (Auto) 0.2 10^3/uL (0.0-0.8) 12/27/23 14:50 Baso # (Auto) 0.1 10^3/uL (0.0-0.1) 12/27/23 14:50 Nucleated RBC % (auto) 0 % 12/27/23 14:50 Nucleated RBCs # 0.0 /100WBC 12/27/23 14:50 Sodium 142 mmol/L (136-145) 12/27/23 14:50 Potassium 3.6 mmol/L (3.5-5.1) 12/27/23 14:50 Chloride 107 mmol/L (98-107) 12/27/23 14:50 Carbon Dioxide 20 mmol/L (22-29) L 12/27/23 14:50 Anion Gap 18.6 (5-19) 12/27/23 14:50 BUN 10 mg/dL (6-20) 12/27/23 14:50 Creatinine 0.9 mg/dL (0.7-1.2) 12/27/23 14:50 GFR Calculation 87.9 mL/min (90-130) L 12/27/23 14:50 Glucose 111 mg/dL (65-115) 12/27/23 14:50 Calculated Osmolality 294 mOsm/kg (285-295) 12/27/23 14:50 Calcium 8.6 mg/dL (8.5-10.5) 12/27/23 14:50 Total Bilirubin 0.4 mg/dL (0.15-1.2) 12/27/23 14:50 AST 26 U/L (0-40) 12/27/23 14:50 ALT 27 U/L (0-41) 12/27/23 14:50 Alkaline Phosphatase 101 U/L (40-130) 12/27/23 14:50 Total Protein 7.2 g/dL (6.6-8.7) 12/27/23 14:50 Albumin 4.6 g/dL (3.5-5.2) 12/27/23 14:50 Globulin 2.6 g/dL (1.3-4.6) 12/27/23 14:50 TSH 1.28 uIU/mL (0.27-4.20) 12/27/23 14:50 Salicylates < 0.3 mg/dL (3-10) L 12/27/23 14:50 Acetaminophen < 5.0 ug/mL (10-30) L 12/27/23 14:50 Ethyl Alcohol 66 mg/dL (0-10) H 12/27/23 14:50 No radiology studies performed this visit Discharge Plan Discharge Patient Disposition: Admitted As Inpatient Clinical Impression: Suicidal ideation, Depression Condition: Stable Coding Level of Care Code ED Director Life Sciences for Wilder Long
[2023-12-27 14:55] LABS: Basophils # 0.1 10^3/uL (0.0-0.1); Basophils % 0.8 %; Eosinophils # 0.2 10^3/uL (0.0-0.8); Eosinophils % 1.3 %; Hematocrit 45.2 % (37-53); Lymphocytes # 2.1 10^3/uL (0.8-4.8); Lymphocytes % 17.2 %; Mean Corpuscular HGB Conc 34.3 g/dL (30-55); Mean Corpuscular Hemoglobin 32.2 pg (27-33); Mean Corpuscular Volume 93.8 fl (82-101); Mean Platelet Volume 10.2 fL (7.4-10.4); Monocytes # 1.1 10^3/uL (0.2-0.9); Monocytes % 8.8 %; Neutrophils # 8.59 10^3/uL (1.8-7.7); Neutrophils % 71.5 %; Nucleated Red Blood Cells % 0 %; Platelet Count 211 10^3/cmm (157-399); Red Blood Count 4.82 10^6/uL (3.85-5.65); Red Cell Distribution Width 12.4 % (12.1-15.1); White Blood Count 12.03 10^3/uL (3.29-11.43)
--- NOTE | 2023-12-27 15:12 | ECG_ITS ---
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1970 Requested By: Penelope Quintana Order Number: [id number] lEise MD: MIRI QUIJANO Measurements Intervals [place] Rate: 98 P: 36 OR: 190 QRS: -60 QRSD: 114 T: 51 QT: 345 QTc: 442 Interpretive Statements SINUS RHYTHM LEFT ANTERIOR FASCICULAR BLOCK [QRS AXIS <= -45, QR IN I, RS IN II] Compared to ECG 09/24/2023 20:08:29 Left anterior fascicular block now present Sinus bradycardia no longer present First degree AV block no longer present Left-axis deviation no longer present Incomplete right bundle-branch block no longer present Electronically Signed On 12-27-2023 18:07:46 CDT by MIRI QUIJANO [id number]
[2023-12-27 15:25] LABS: Acetaminophen < 5.0 ug/mL (10-30); Alanine Aminotransferase 27 U/L (0-41); Albumin Level 4.6 g/dL (3.5-5.2); Alcohol Level 66 mg/dL (0-10); Alkaline Phosphatase 101 U/L (40-130); Anion Gap 18.6 (5-19); Aspartate Amino Transferase 26 U/L (0-40); Blood Urea Nitrogen 10 mg/dL (6-20); Calcium 8.6 mg/dL (8.5-10.5); Carbon Dioxide 20 mmol/L (22-29); Chloride 107 mmol/L (98-107); Globulin 2.6 g/dL (1.3-4.6); Glomerular Filtration Rate 87.9 mL/min (90-130); Glucose 111 mg/dL (65-115); Osmolality Calculated 294 mOsm/kg (285-295); Potassium 3.6 mmol/L (3.5-5.1); Salicylate < 0.3 mg/dL (3-10); Sodium 142 mmol/L (136-145); Thyroid Stimulating Hormone 1.28 uIU/mL (0.27-4.20); Total Bilirubin 0.4 mg/dL (0.15-1.2); Total Protein 7.2 g/dL (6.6-8.7)
--- NOTE | 2023-12-27 15:35 | PC.NURSE ---
Patient is wearing an ankle monitor through probation and parole. Patient also had a substantial amount of castano in his wallet. Patient asked if we could count the money and keep it safe for him while he is in the hospital. Security came down and we did a two person count of the castano with the patient present. He has a total of $599 castano with him.
--- NOTE | 2023-12-27 15:43 | PC.NURSE ---
Patient came to me stating that his ankle monitor is getting ready to . I called the [place] police dept and they stated they would call probation and parole and have them return a phone call to me. I received a phone call from Officer Antonio Cruz, he is the bsa/aml compliance officer for this patient. After speaking with Officer Nancy he stated that he cannot get a charge for the patient's ankle monitor to [facility] until Friday. Officer Cruz did ask that if the patient were to leave or be discharged before a charge was delivered to the hospital on Friday that someone call him and let him know the patient has left with a ankle monitor. Officer Antonio Cruz cell phone # [phone].
[2023-12-27 18:28] VITALS: BP 113/69; PULSE 84; O2SAT 95
[2023-12-27 19:42] VITALS: BP 150/108; PULSE 85; RESP 16; TEMP 37.5; O2SAT 97
[2023-12-27] MEDS: ibuprofen 600 mg Tablet PO (20:14)
[2023-12-27] MEDS: hyDROXYzine 25 mg Capsule 50 MG PO (20:14)
[2023-12-27] MEDS: trazodone 50 mg Tablet PO (20:14)
[2023-12-28] VITALS: BP 107/70; PULSE 69; RESP 18; TEMP 36.5; O2SAT 98
[2023-12-28 04:00] VITALS: BP 118/69; PULSE 52; RESP 18; TEMP 36.5; O2SAT 99
--- NOTE | 2023-12-28 07:56 | W.PM.NPUH&PS ---
Providers/Chief Complaint Admitting Physician: Sam Bond MD Chief Complaint: SI HPI NPU History of Present Illness Emil Castro is a 53 year old male who presented to the emergency department with the following report: Chief Complaint: Psychiatric Symptoms Stated Complaint: SI Time Seen by Provider: 12/27/23 14:39 History of Present Illness: 54-year-old man who presents to the emergency room with suicidal thoughts. He says he recently just got out of correction. He says he had no place to go and he is no longer on his depression medications. He has a plan to either take pills or hang himself. He was admitted to the neuropsychiatric unit for definitive treatment of those issues. He is known to [facility] psychiatric services through mostly inpatient services but occasional outpatient services and has been in senior care recently for 50 some days. An excerpt of his last inpatient hospitalization discharge summary is included below for context and the fact that there have been no substantive changes. He presents today reporting that while in senior care his medications got off track. He reports they discharged him without a clear follow-up and without the resources to get his medications restarted as they were prior. He presented hoping that his medication could be restarted and he get back on track. We discussed the risks, benefits and alternatives of us initiating medication as we had during his last hospitalization and he understood and agreed to proceed as is documented in this note. Per his 09/02/2023 [facility] inpatient psychiatric discharge summary: Discharge Diagnosis (1) Bipolar disorder with depression: Status: Inactive (2) Depression with suicidal ideation: Status: Resolved (3) Chronic schizophrenia: Status: Acute (4) Suicide attempt: Status: Resolved (5) Alcohol dependence, in remission: Status: Acute (6) Antisocial personality disorder: Status: Inactive (7) Suicidal ideation: Status: Resolved (8) Amphetamine abuse: Status: Acute Reason for Visit Reason for Visit: HI, SI Brief History: History of Present Illness Emil Castro is a 53 year old male who presented to the emergency department with the following report: Chief Complaint: Psychiatric Symptoms Stated Complaint: HI, SI Time Seen by Provider: 08/30/23 17:10 Source: patient Mode of arrival: ambulatory Limitations: no limitations History of Present Illness: Patient is a 53-year-old male with extensive psychiatric history who presents to the emergency department complaining of suicidal ideations, homicidal ideations, and auditory hallucinations today. Patient recently was discharged from the NPU at the end of July, and states that other than receiving an injection he has not taken any medications. Initially he states he was doing okay though today was started to hear birds talk to him and had the overwhelming urge to shoot himself in the head. He also states that he has been having increased anger issues where he feels like he could shoot someone else in the head. He denies any illicit drug use other than smoking marijuana recently. He does have extensive past medical history of alcohol abuse. He denies drinking recently. When I ask him where he lives, he states that he has just been camping out lately. He does report a history of attempting suicide in the past, where he hung a rope over a tree and put his neck through it though did not go any further than this. He is not reporting any visual hallucinations or tactile hallucinations. No medical symptoms reported at this time. He requests to come into the psychiatric unit to be seen at this time. MD complaint: other (SI/HI/auditory hallucinations) Onset (ago): hour(s) Duration: constant History of same: Yes Relieving factors: none Exacerbating factors: none Associated symptoms: Reports auditory hallucinations, homicidal ideation and suicidal ideation; Deny visual hallucinations If self harm: admits thoughts of self harm and has plan. He was admitted to the neuropsychiatric unit for definitive treatment of those issues. He is known quite well through inpatient and some outpatient services. He has a long history of high utilization of services back when he was having more addiction issues and there were concerns often for malingering but in recent years his psychosis has become more prevalent and concern for malingering and antisocial personality disorder have greatly reduced. He was last seen in July 2023 and an excerpt of discharge summary is included below for context and that there have been limited substantive changes and he can be at times a poor historian. He presents reporting when he left he went back to his common [place]. He said that things were going fairly well until the last couple of weeks when he was having auditory hallucinations feeling like birds were communicating with him and just feeling like the medication was not working. We discussed the fact that he had been on the Abilify Maintena which should have been renewed about 9 days ago. We discussed the risks, benefits and alternatives of resuming the long-acting injectable and specifically switching him to Abilify Asimtufii to give him an additional 30 days before medication issues might manifest. Otherwise he reports that he is looking forward to working with the social work team for any assistance they have for his psychosocial challenges. Per his 07/28/2023 [facility] inpatient psychiatric discharge summary: Discharge Diagnosis (1) Bipolar disorder with depression: Status: Inactive (2) Depression with suicidal ideation: Status: Resolved (3) Chronic schizophrenia: Status: Acute (4) Suicide attempt: Status: Resolved (5) Alcohol dependence, in remission: Status: Acute (6) Antisocial personality disorder: Status: Inactive (7) Suicidal ideation: Status: Resolved (8) Amphetamine abuse: Status: Acute Reason for Visit Reason for Visit: MHE Brief History: History of Present Illness Emil Castro is a 53 year old male with a previous history of bipolar disorder and otherwise specified, and schizophrenia along with methamphetamine abuse who presented to the emergency department with reoccurring thoughts about wanting to harm himself and had been gone 3 days ago. He had stated that he began to hear birds that were telling him to jump off of a bridge. He had reported that he had been abstaining from the use of alcohol for several months but had relapsed and had consumed 1 single beer. He reported no recent use of methamphetamine and his urine drug screen was negative on arrival here. He had reported that he was having some thoughts of cutting himself with a knife and states that he reports that he had stopped all of his medications for several months. He reports having frequent mood swings. He had endorsed a history of having racing thoughts. He reports that he has been distracted by his thoughts. He had reported having thoughts of others trying to harm him and stated that he was generally distrustful of others. He reports some difficulties with concentration. 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 Patient had reported no substantiative changes since his last hospitalization in November 2022. Psychiatric History: none currently, no outpatient follow ups, no new inpatient hospitalizations noted Current medications: none (previous medications include Abilify Maintena monthly, Abilify 15mg orally, NPU Discharge Summary from 11/29/22: History of Present Illness Emil Castro is a 52 year old male who presented to the emergency department with the following report: Chief Complaint: Psychiatric Symptoms Stated Complaint: SI Time Seen by Provider: 11/22/22 19:07 History of Present Illness: 52-year-old male with history of mood disorder and currently noncompliant with his medication presents emergency room with vague complaint of homicidal and suicidal ideation for the past few weeks. Patient reveals that he wants to shoot himself in the head and anticoagulant was attacking him. Patient denies any nausea, vomiting, chest pain, shortness of breath. Patient reveals that he is hearing voices from the birds. Associated symptoms: Reports auditory hallucinations, homicidal ideation and suicidal ideation; Deny visual hallucinations or delusions. He was admitted to the neuropsychiatric unit for definitive treatment of those issues. He presents today well-known to this staff writer through previous hospitalizations. He presents as he generally has recently with suicidal versus homicidal ideation and with limited resources off of medication. He presents reporting [place] trying to manage things air without significant resources he reports he has been off his medication for some time but gives no real indicator of what led to that change. He was last seen here 6 weeks ago and has continued struggles with ayan stability, housing and direction for that matter. He presents today without irritability which is a common factor in his presentations. He reports a desire to get assistance resuming his medication but when we talked about things like the ERE program and a stronger [facility] presence, he was fairly ambivalent about that kind of increased resources. We discussed the risks, benefits and alternatives of restarting his Abilify at an appropriate dose and he understood agreed to proceed as documented in this note. We broached the subject of the possibility of a long-acting injection. An excerpt of his 10/08/2022 discharge summary is included below for context. Per his 10/08/2022 [facility] inpatient psychiatric discharge summary: Discharge Diagnosis (1) Bipolar disorder with depression: Status: Acute (2) Depression with suicidal ideation: Status: Resolved (3) Suicide attempt: Status: Acute (4) Alcohol dependence, in remission: Status: Acute (5) Drug-induced psychotic disorder: Status: Inactive (6) Antisocial personality disorder: Status: Inactive Reason for Visit Reason for Visit: SI Brief History: History of Present Illness Emil Castro is a 52 year old male who presented to the emergency department with the following report: Chief Complaint: Psychiatric Symptoms Stated Complaint: SI Time Seen by Provider: 10/02/22 11:11 Source: patient Mode of arrival: ambulatory History of Present Illness: 52-year-old male presents emergency room with complaint of suicidal ideations racing thoughts some hallucinations. Patient has a history of alcoholism as well as bipolar disorder. He states he stopped taking all of his medicines 5 or 6 months ago however he was hospitalized in early May of this year. He was discharged on May 08 and then readmitted on May 18. He did admit to drinking this morning he is still mildly agitated but not confrontational easily redirected. He cannot give me a specific reason as to why he stopped his medications. He did not particularly identify side effects he does states he did not get them refilled MD complaint: suicidal ideation Onset (ago): day(s) Duration: changing over time and getting worse History of same: Yes Relieving factors: none Exacerbating factors: alcohol Context: recent alcohol abuse Associated psychiatric symptoms: none Associated symptoms: Deny auditory hallucinations, visual hallucinations, delusions, depression, homicidal ideation, suicidal ideation or racing thoughts Treatments prior to arrival: none If self harm: admits thoughts of self harm and has plan. He was admitted to the neuropsychiatric unit for definitive treatment of those issues. Patient presents today much like he is presented recently. UDS was unremarkable with no noted active drug use. This is in jackson contrast to his presentations 2+ years ago such that he was very agitated by the question about addiction. We discussed the fact that this is part of our normal screening questions. Which did seem to settle help. He presented quite agitated and not very open to questioning endorsing that this irritability is the reason that he came to the hospital. Reporting that he is finding himself to be quite easily agitated. He reports that after his May hospitalization he discontinued the medication. He reports that he went and got a job but then all that fell apart. We discussed the issue with the medication and why he discontinued it and he reports that the Seroquel which previously was a stable and standard medication in his regimen made him too tired and unable to function. He reported an openness to a trial of a new medication and we discussed the risks, benefits and alternatives of starting Abilify 10 mg p.o. daily and he understood and agreed to proceed as is documented in this note. Otherwise he reported being homeless and having no real options and needing something to help with his agitation. An excerpt of his May 2022 hospitalization is included below for historical context. Per his 05/30/2022 [facility] inpatient psychiatric discharge summary: Discharge Diagnosis (1) Depression with suicidal ideation: Status: Resolved (2) Suicide attempt: Status: Acute (3) Alcohol dependence, in remission: Status: Acute (4) Drug-induced psychotic disorder: Status: Inactive (5) Antisocial personality disorder: Status: Chronic (6) Depressed bipolar I disorder: Status: Resolved Permanent problem details: Patient does not name and get his prescriptions filled when discharged. I am discontinuing all his meds and referring him to outpatient follow-up. Reason for Visit Reason for Visit: SI,MHE Brief History: History of Present Illness Emil Castro is a 51 year old male who presented to the emergency part with the following report: Chief Complaint: Psychiatric Symptoms Stated Complaint: SI,MHE Time Seen by Provider: 05/17/22 17:36 Source: patient Mode of arrival: ambulatory Limitations: no limitations History of Present Illness: Patient is a 51-year-old male who is well-known to the emergency department here yet again for complaints of suicidal ideations, homicidal ideations, auditory hallucinations, and aggression/anger outbursts. Patient has had multiple NPU admissions over the past few months. Patient states he never has followed up with [facility] or a primary care provider after his discharges. Patient states he is taking his prescribed medications. He continues to drink alcohol. States he has a plan to hang himself with a rope. He states he feels homicidal towards men in general and sometimes wants to slit their throats. MD complaint: suicidal ideation and other (anger/agression, HI, auditory hallucinations) Duration: constant History of same: Yes Relieving factors: none Exacerbating factors: none Context: recent alcohol abuse Associated psychiatric symptoms: depression, suicidal ideation, homicidal ideation and auditory hallucinations Associated symptoms: Reports auditory hallucinations, depression, homicidal ideation and suicidal ideation; Deny visual hallucinations Treatments prior to arrival: none If self harm: admits thoughts of self harm and has plan. He was admitted to the Neuropsych Unit for definitive treatment of issues. He presents like he has recently with significant irritability reporting concerned he is going to hurt someone. He reported that his medication based on his discharge functioning that seems unlikely. However he continues significant difficulties with his housing and managing resources. The fairly distant story reporting openness to continue medication but not expressing any clarity as what he was to do next. We discussed working with treatment team on Friday to start to look more viable and sustainable housing and resources, which she agrees with but not emphatically. We agreed to restart his medication and see how he does with regular administration and probably consider increasing his bedtime Seroquel and he understood agreed to proceed as is documented in this note Per his 05/08/2022 [facility] inpatient psychiatric discharge summary: SI Brief History: History of Present Illness Emil Castro is a 51 year old male who presented to the emergency department with the following report: Chief Complaint: Psychiatric Symptoms Stated Complaint: SI Time Seen by Provider: 05/01/22 19:21 Source: patient Mode of arrival: ambulatory Limitations: no limitations History of Present Illness: 51-year-old male states he has a history of depression along with bipolar he had a suicide attempt impassable he states over the last 5 to 6 days he been having increased irritability along with suicidal thoughts he states he had thoughts of hanging himself from a tree. He states that he realized that he needed to get help or reason to harm himself he denies any worsening proving factors he is currently not on any meds. Associated symptoms: Reports depression and suicidal ideation He was admitted to the neuropsychiatric unit for definitive treatment of those issues. He presents today reporting that he had been spending most of his time after his last discharge in [place]. He reports that he has been working and doing fairly well. He reports initially he was taking his medication but at some point he stopped taking it and he could not give any reasonable explanation for why he did that or why he has a habit of doing that. He reports that he came back to [place] for some time off and to do some camping. He reports that he started having great irritability with people around him started having some really negative thoughts about reacting to his irritability. He thought then that it was best to come to the hospital before he did something that he regretted. We discussed the risk benefits and alternatives of resuming the medications he had previously done well on and he understood and agreed to proceed as is documented in this note. An excerpt of his last discharge summary is included below for context as he was not interested in details from a history standpoint. Per his 08/27/2021 [facility] inpatient psychiatric discharge summary: Discharge Diagnosis (1) Depression with suicidal ideation: Status: Resolved (2) Suicide attempt: Status: Acute (3) Alcohol dependence, in remission: Status: Acute (4) Drug-induced psychotic disorder: Status: Acute (5) Antisocial personality disorder: Status: Chronic (6) Depressed bipolar I disorder: Status: Resolved Permanent problem details: Patient does not name and get his prescriptions filled when discharged. I am discontinuing all his meds and referring him to outpatient follow-up. Reason for Visit Reason for Visit: SI Brief History: History of Present Illness Emil Castro is a 51 year old male who presented to the emergency department the following report: Chief complaint: Psychiatric Symptoms Stated complaint: SI Time Seen by Provider: 08/23/21 19:44 History of Present Illness: HPI: [51]yo patient w/ hx of depression presenting for suicidal ideation with plan. Patient plans to hang himself and decided against the last minute and came in to the ED. On arrival, the patient is AAOx3 and cooperative with my evaluation. No focal complaints of chest pain, shortness of breath, palpitations, N/V, focal GI/ complaints. Currently denies HI. No complaints of hallucinations. Onset: acute Duration: ongoing Location: home Severity: severe Associated symptoms: Deny chest pain, dyspnea, nausea, rash, palpitations or vomiting He was admitted to the neuropsychiatric unit for definitive treatment of those issues. Patient is well-known to the unit from multiple past inpatient stays the last of which was in June. He had previously been here much more often but had been having a modicum of success followed by some recent challenges again. He reports that after his last stay he had gone to [place] and was doing fairly well and told someone on convoluted story about how he was coming back here to get his mail arranged and that he decided once he was here that he was going to go ahead and say and he went to [facility] and they were lining up a place for him to stay in the next 2 or 3 days. But then frustrations and bad choices get the best of him which led him to presenting to the hospital yesterday. He reports another problem that led to him coming his way was that he has he will get his medication for about the last month or so he would not and could not explain whether this was related to him not following through on something to get refills or some other concern. Review of the chart suggested maybe he was given refills in the left in beginning of June. Unclear why that occurred. He was indicated to moving forward, getting his own place to [place] getting back on medication and trying to remain in the right direction. Documentation shows that he has been doing better when he comes to his addictive behavior however he reports sobriety extending back more than 6 months and I am unconvinced that that is accurate though. We discussed the risk benefits alternatives of getting his medications restarted and trying to assist him in stability on that front and he understood agreed proceed as is documented in this note. An excerpt of his June stay is included below for context. Hospital course 05/08/22 : He slowly acclimated to the individual, group and milieu therapies provided. He presented reporting irritability being off of medication. Seroquel was started at bedtime and 2 daytime doses were added. He was titrated up to 50 mg twice a day and 100 milligrams at night. He continues to have challenging living successes at home is becoming factor. He dorsoplantar this maneuver he has had some success. With his medications restarted and he did have significant improvement. He was able to contract for safety outside of the hospital prior to discharge. During the hospitalization, patient had routine laboratory studies which were within normal limits except for few outliers. Additionally there was a general medical evaluation which was also within normal limits and revealed no new acute processes. Discharge Summary: At the time of discharge, lethality was denied and psychosis was resolving. Mood and anxiety were well managed. Patient endorsed a plan to avoid all drugs of abuse and follow-up with the aftercare recommendations of the treatment team. Patient was evaluated and deemed to be absent credible lethality, and was voluntary and denied wanting any continued inpatient hospitalization, so he was discharged. Hospital Course 05/30/22: Discharge Summary: During the hospitalization, patient had routine laboratory studies which were within normal limits except for few outliers. Additionally there was a general medical evaluation which was also within normal limits and revealed no new acute processes. At the time of discharge, lethality was denied and psychosis was resolving. Mood and anxiety were well managed. Patient endorsed a plan to avoid all drugs of abuse and follow-up with the aftercare recommendations of the treatment team. Patient was evaluated and deemed to be absent credible lethality, and had achieved the maximum benefit from an inpatient hospitalization, so was discharged. Hospital Course He slowly acclimated to the individual, group and milieu therapies provided. He presented once again having had struggles with getting his medication and continues to struggle with having dependable secure [place] accessing mental health care. Additionally he had not manage the legal challenges that was confronting him at the last visit and now he reports that he has a warrant that he must manage. We restarted the medication and he was given Abilify Maintena while in the hospital and discharged on that as well because we were unable to get him the Abilify Asimtufii. He worked with the social work team for appropriate outpatient follow-up. He reported when he got to [place] this time he was going to turn himself in so that his legal issues could be resolved. He had significant improvement during the stay and was able to contract for safety outside the hospital prior to discharge. During the hospitalization, the patient had routine laboratory studies which were within normal limits except for a few outliers. Additionally, there was a general medical evaluation which was also within normal limits and revealed no new acute processes. At the time of discharge, lethality was denied and psychosis was resolving. Mood and anxiety were well managed. The patient endorsed a plan to avoid all drugs of abuse and follow up with the aftercare recommendations of the treatment team. The patient was evaluated and deemed to be absent credible lethality and had achieved the maximum benefit from an inpatient hospitalization, and so was discharged. Meds NPU Home Medications Medication Instructions Recorded Confirmed Last Taken Type No Known Home Medications 12/27/23 12/27/23 Unknown History Allergies Allergy/AdvReac Type Severity Reaction Status Date / Time Penicillins Allergy ALGY-Hives Verified 09/24/23 16:24 [facility] NPU PFS: Medical History Bipolar disorder with depression Chronic alcohol abuse Alcohol dependence, in remission Bipolar 2 disorder Drug-induced psychotic disorder Malingering Antisocial personality disorder Social History Smoking and tobacco/nicotine status: current every day tobacco/nicotine user Mental Status Exam MSE Comments: This is an obese white male in hospital scrubs with adequate grooming and eye contact.? No abnormal movements except for mild psychomotor retardation.?He was cooperative with exam in mild distress.? Speech was normal in rate and slightly decreased in volume.? Mood described as as good as can be expected, his affect was slightly subdued. Thought process was linear. Thought content: Patient endorsed fleeting suicidal thoughts with no plan and denied homicidal ideation. There were no delusions reported or but some paranoia and bizarre delusions noted, he endorsed auditory hallucinations and denied visual hallucinations. Attention and concentration were adequate and memory was mostly reliable but none were formally tested.? He is alert and oriented x to person and place.? Insight was poor and judgment is impaired. Impulse control is poor. Vitals/I&O/Wt Last Vital Signs Temp 97.7 F 12/28/23 04:00 Pulse 52 L 12/28/23 04:00 Resp 18 12/28/23 04:00 BP 118/69 12/28/23 04:00 Pulse Ox 99 12/28/23 04:00 O2 Del Method Room Air 12/27/23 19:42 Weight last 48 hrs Weight 121.563 kg Data NPU 12/27/23 14:50 12/27/23 14:50 A&P Assessment and plan (1) Bipolar disorder with depression: (2) Depression with suicidal ideation: (3) Chronic schizophrenia: (4) Suicide attempt: (5) Alcohol dependence, in remission: (6) Antisocial personality disorder: (7) Suicidal ideation: (8) Amphetamine abuse: Plan This is a 53-year-old white male with a long history of multiple inpatient hospitalizations often with previous concerns for malingering which have been greatly reduced in recent years who presents today reporting that he has not been taking his medication in part due to recent discharge from senior care where they did not necessarily keep his medication as prescribed. He was open to getting his medications restarted. He does have an ankle monitor. 1. Restart Abilify 10 mg p.o. daily and we will order Abilify Asimtufii 960 mg IM every 2 monthly and hopefully start tomorrow or the next day but this will give us 2 months instead of 1 month before there are medication management concerns. Will start Seroquel 100 mg p.o. nightly to help with sleep. 2. Continue to-15 minute checks, 3.? Encourage individual, group and milieu therapy. 4.? Encourage sober living treatment after discharge at the highest level of care to which he is willing to commit.? 5. Will attempt to gather collateral information. Involuntary Hold Information 96 Hour Hold: 96 Hour Involuntary Admission: Yes 96 Hour Hold Ending Date: 01/02/24 96 Hour Hold Ending Time: 00:01 Attestations NPU Medical Necessity Statement*: Inpatient hospitalization is medically necessary and deemed to ?be ?the clinically appropriate intervention ?at this time.? We will monitor/initiate medications and make changes as indicated.? The patient will be in the hospital for over 2 midnights.? The patient?s likely length of stay 5-7 days. Coding Level of Care Code Acute Code for [facility] Fwd Diagnoses Bipolar disorder with depression F31.9 Depression with suicidal ideation F32.A; R45.851 Chronic schizophrenia F20.9 Suicide attempt T14.91XA Alcohol dependence, in remission F10.21 Antisocial personality disorder F60.2 Suicidal ideation R45.851 Amphetamine abuse F15.10
[2023-12-28 08:00] VITALS: BP 125/80; PULSE 78; RESP 16; TEMP 37.2; O2SAT 99
[2023-12-28] MEDS: thiamine 100 mg Tablet PO (08:16)
[2023-12-28] MEDS: folic acid 1 mg Tablet PO (08:16)
[2023-12-28] MEDS: multivitamin therapeutic Tablet 1 TAB PO (08:16)
[2023-12-28] MEDS: nicotine 4 mg lozenge MUCOUS MEM ×4 (09:05→20:23)
[2023-12-28] MEDS: OLANZapine 5 mg ODT PO (11:09)
--- NOTE | 2023-12-28 11:28 | PC.NURSE ---
This nurse called [facility] in [place] at patient request, to attempt to have loan representative for ankle monitor brought to the unit. No answer, left message for Hernando to return call.
[2023-12-28 11:35] VITALS: BP 118/74; PULSE 65; RESP 18; TEMP 36.6; O2SAT 99
[2023-12-28 15:30] VITALS: BP 106/65; PULSE 72; RESP 16; TEMP 36.6; O2SAT 98
--- NOTE | 2023-12-28 16:16 | PC.NURSE ---
Hernando from [facility] in [facility] returned my call. Hernando stated that he will bring up the diabetes physician for patient's ankle monitor sometime this evening. Directions to the unit were given. Understanding verbalized.
[2023-12-28 20:00] VITALS: BP 116/64; PULSE 70; RESP 18; TEMP 36.7; O2SAT 97
[2023-12-28] MEDS: trazodone 50 mg Tablet PO (20:23)
[2023-12-29] VITALS (7 sets, daily range): BP systolic 93–125; BP diastolic 60–77; PULSE 70–89; RESP 16–18; TEMP 36.6–37; O2SAT 94–98
[2023-12-29] MEDS: nicotine 4 mg lozenge MUCOUS MEM ×6 (07:54→19:22)
[2023-12-29] MEDS: ARIPiprazole 10 mg Tablet PO (07:54)
[2023-12-29] MEDS: multivitamin therapeutic Tablet 1 TAB PO (07:54)
[2023-12-29] MEDS: folic acid 1 mg Tablet PO (07:54)
[2023-12-29] MEDS: thiamine 100 mg Tablet PO (07:54)
[2023-12-29 09:58] LABS: Bilirubin Urine Negative (Negative); Blood Urine Negative (Negative); Glucose Urine UA Negative (Normal); Ketones Urine Negative (Negative); Leukocyte Esterase Urine Negative (Negative); Nitrate Urine Negative (Negative); Protein Urine Negative (Negative); Specific Gravity, Urine 1.003 (1.005-1.030); Urine Appearance Clear (CLEAR); Urine Color Yellow (Yellow); Urobilinogen Urine 0.2 mg/dL (Negative)
[2023-12-29 10:03] LABS: Bacteria Urine None Seen /hpf; Hyaline Casts Urine 0-4 /lpf; RBC Urine 0-2 /hpf (0-2); Squamous Epithelial Cell Urine 0-5 /hpf (0-5); WBC Urine 0-5 /hpf (0-5)
[2023-12-29 10:32] LABS: Amphetamines Screen Urine Negative (Negative); Barbiturates Screen Urine Negative (Negative); Benzodiazepines Screen Urine Negative (Negative); Cocaine Screen Urine Negative (Negative); Opiate Screen Urine Negative (Negative); PCP Screen Urine Negative (Negative); THC Screen Urine Negative (Negative)
--- NOTE | 2023-12-29 12:15 | PC.NURSE ---
called Luisa, patient's called. Her number is [phone]. Patient's father killed himself with a gun in 2018. In 2018, patient attempted suicide. Patient was in [facility] for a while and after this until mid-July. Mid july is when his only son finished high school. After this, patient went down [place] again. Patient attempted suicide in August. Patient had other attempts and was put on life support, then after he came off life support, he was taken to [facility] in [place], where medication changes were done. A little over one week later, patient attempted suicide again by hanging himself from the bathroom shower. His 13 year old daughter cut him down and his performed CPR while waiting for EMS to arrive. Patient's also just discovered that patient's sister has been diagnosed with chiari malformation and that it can be genetic. recommends an MRI of brain.
--- NOTE | 2023-12-29 13:05 | W.PM.NPUPNS ---
Subjective NPU Subjective: 53-year-old male admitted with suicidal ideation with a history of polysubstance abuse. He had reported that he had run out of his Abilify and continued to appear homeless after being discharged from incarceration. He had reported that he would be willing to take the Abilify monthly shot. He had reported that he had been hopeful about going to the care center but stated that they would not allow him to remain on Abilify as they had a no medicine policy. He had reported that he had been having anxiety attacks. Mental Status Exam MSE Comments: This is an obese white male in hospital scrubs with adequate grooming and eye contact.? No abnormal movements except for mild psychomotor retardation.?He was cooperative with exam in mild distress.? Speech was normal in rate and slightly decreased in volume.? Mood described as a bit down. His affect was slightly subdued. Thought process was linear. Thought content: Patient endorsed fleeting suicidal thoughts with no plan and denied homicidal ideation. There were no delusions reported or but some paranoia and bizarre delusions noted, he endorsed auditory hallucinations and denied visual hallucinations. Attention and concentration were adequate and memory was mostly reliable but none were formally tested.? He is alert and oriented x to person and place.? Insight was poor and judgment is impaired. Impulse control is poor. Vitals/I&O/Wt Last Vital Signs Temp 98.0 F 12/29/23 11:50 Pulse 83 12/29/23 11:50 Resp 16 12/29/23 11:50 BP 116/77 12/29/23 11:50 Pulse Ox 96 12/29/23 11:50 O2 Del Method Room Air 12/29/23 11:50 Weight last 48 hrs Weight 121.563 kg Data NPU 12/27/23 14:50 12/27/23 14:50 A&P Assessment and plan (1) Bipolar disorder with depression: (2) Depression with suicidal ideation: (3) Chronic schizophrenia: (4) Suicide attempt: (5) Alcohol dependence, in remission: (6) Antisocial personality disorder: (7) Suicidal ideation: (8) Amphetamine abuse: Plan This is a 53-year-old white male with a long history of multiple inpatient hospitalizations often with previous concerns for malingering which have been greatly reduced in recent years who presents today reporting that he has not been taking his medication in part due to recent discharge from skilled nursing where they did not necessarily keep his medication as prescribed. He was open to getting his medications restarted. He does have an ankle monitor. 1. Continue Abilify 10 mg p.o. daily and we will order Abilify Asimtufii 960 mg IM every 2 monthly and hopefully start tomorrow or the next day but this will give us 2 months instead of 1 month before there are medication management concerns. Will start Seroquel 100 mg p.o. nightly to help with sleep. 2. Continue to-15 minute checks, 3.? Encourage individual, group and milieu therapy. 4.? Encourage sober living treatment after discharge at the highest level of care to which he is willing to commit.? 5. Will attempt to gather collateral information. Involuntary Hold Information 96 Hour Hold: 96 Hour Involuntary Admission: Yes 96 Hour Hold Ending Date: 01/02/24 96 Hour Hold Ending Time: 00:01 Attestations NPU Medical Necessity Statement*: Inpatient hospitalization is medically necessary and deemed to ?be ?the clinically appropriate intervention ?at this time.? We will monitor/initiate medications and make changes as indicated.? The patient?s likely length of stay 5-7 days. Coding Level of Care Code Acute Code for [facility] Fwd Diagnoses Bipolar disorder with depression F31.9 Depression with suicidal ideation F32.A; R45.851 Chronic schizophrenia F20.9 Suicide attempt T14.91XA Alcohol dependence, in remission F10.21 Antisocial personality disorder F60.2 Suicidal ideation R45.851 Amphetamine abuse F15.10
[2023-12-29] MEDS: trazodone 50 mg Tablet PO (19:22)
[2023-12-29] MEDS: quetiapine 100 mg Tablet PO (19:22)
[2023-12-30 06:00] VITALS: BP 124/73; PULSE 83; RESP 16; TEMP 36.3; O2SAT 98
[2023-12-30] MEDS: nicotine 4 mg lozenge MUCOUS MEM ×6 (06:21→19:57)
[2023-12-30] MEDS: folic acid 1 mg Tablet PO (08:35)
[2023-12-30] MEDS: ARIPiprazole 10 mg Tablet PO (08:35)
[2023-12-30] MEDS: thiamine 100 mg Tablet PO (08:35)
[2023-12-30] MEDS: multivitamin therapeutic Tablet 1 TAB PO (08:35)
[2023-12-30 14:00] VITALS: BP 114/70; PULSE 76; RESP 16; TEMP 36.6; O2SAT 97
--- NOTE | 2023-12-30 16:40 | P.NPUPN_ITS ---
Subjective NPU 2 Subjective: 53-year-old male admitted with suicidal ideation, bipolar disorder with a history of polysubstance abuse. Patient had continued to report feeling depressed. He had reported that he had run out of his medication weeks ago. He had continued to isolate himself on the milieu. He had stated that he was agreeable to going to any program as long as he could continue to take his medications. He had reported no hallucinations at this time but reported that his thoughts were still racing at this time. He had reported improved sleep on the Seroquel. He reported having problems with anxiety and panic attacks although he did not endorse having a panic attack here over the past few days. Mental Status Exam 2 MSE Comments: This is an obese white male in hospital scrubs with adequate grooming and eye contact.? No abnormal movements except for mild psychomotor retardation.?He was cooperative with exam in mild distress.? Speech was normal in rate and slightly decreased in volume.? Mood described as depressed. His affect was flat. Thought process was linear. Thought content: Patient endorsed fleeting suicidal thoughts with no plan and denied homicidal ideation. There were no delusions reported or but some paranoia and no clear delusions appreciatd today. He denied auditory hallucinations and denied visual hallucinations. Attention and concentration were adequate and memory was mostly reliable but none were formally tested.? He is alert and oriented x to person and place.? Insight was poor and judgment is impaired. Impulse control is poor. Vitals/I&O/Wt Last Vital Signs Temp 97.4 F L 12/30/23 06:00 Pulse 83 12/30/23 06:00 Resp 16 12/30/23 06:00 BP 124/73 12/30/23 06:00 Pulse Ox 98 12/30/23 06:00 O2 Del Method Room Air 12/30/23 06:00 Data NPU 12/27/23 14:50 12/27/23 14:50 A&P Assessment and plan (1) Bipolar disorder with depression: (2) Depression with suicidal ideation: (3) Chronic schizophrenia: (4) Suicide attempt: (5) Alcohol dependence, in remission: (6) Antisocial personality disorder: (7) Suicidal ideation: (8) Amphetamine abuse: Plan This is a 53-year-old white male with a long history of multiple inpatient hospitalizations often with previous concerns for malingering which have been greatly reduced in recent years who presents today reporting that he has not been taking his medication in part due to recent discharge from shelter where they did not necessarily keep his medication as prescribed. He was open to getting his medications restarted. He does have an ankle monitor. 1. Increase abilify 15mg daily Continue Seroquel 100 mg p.o. nightly to help with sleep. 2. Continue to-15 minute checks, 3.? Encourage individual, group and milieu therapy. 4.? Encourage sober living treatment after discharge at the highest level of care to which he is willing to commit.? 5. Awaiting placement at custodial. Patient court ordered to facility that doesn't allow any psychiatric medications to be prescribed. Involuntary Hold Information 2 96 Hour Hold: 96 Hour Involuntary Admission: Yes 96 Hour Hold Ending Date: 01/02/24 96 Hour Hold Ending Time: 00:01 Other Hold: Hold End Date: 01/02/24 Attestations NPU 2 Medical Necessity Statement*: Inpatient hospitalization is medically necessary and deemed to ?be ?the clinically appropriate intervention ?at this time.? We will monitor/initiate medications and make changes as indicated.? The patient will be in the hospital for over 2 midnights.? The patient?s likely length of stay 7-10 days. Coding Level of Care Code Acute Code for [facility] Fwd Diagnoses Bipolar disorder with depression F31.9 Depression with suicidal ideation F32.A; R45.851 Chronic schizophrenia F20.9 Suicide attempt T14.91XA Alcohol dependence, in remission F10.21 Antisocial personality disorder F60.2 Suicidal ideation R45.851 Amphetamine abuse F15.10
[2023-12-30] MEDS: OLANZapine 5 mg ODT PO (16:51)
[2023-12-30] MEDS: ARIPiprazole Maintena 400 MG IM (17:38)
--- NOTE | 2023-12-30 18:40 | PC.NURSE ---
Abilify Injection administered in left deltoid at 1738. Patient responded well and was compliant.
[2023-12-30] MEDS: quetiapine 100 mg Tablet PO (19:58)
[2023-12-30] MEDS: trazodone 50 mg Tablet PO (19:58)
[2023-12-30 20:07] VITALS: BP 96/60; PULSE 88; RESP 18; TEMP 36.7; O2SAT 98
[2023-12-31 06:00] VITALS: BP 122/83; PULSE 81; RESP 18; TEMP 36.3; O2SAT 98
[2023-12-31] MEDS: nicotine 4 mg lozenge MUCOUS MEM ×7 (06:16→19:28)
[2023-12-31] MEDS: ARIPiprazole 10 mg Tablet 15 MG PO (08:35)
[2023-12-31] MEDS: thiamine 100 mg Tablet PO (08:36)
[2023-12-31] MEDS: folic acid 1 mg Tablet PO (08:36)
[2023-12-31] MEDS: multivitamin therapeutic Tablet 1 TAB PO (08:36)
[2023-12-31 13:57] VITALS: BP 116/75; PULSE 82; RESP 16; TEMP 36.8; O2SAT 98
--- NOTE | 2023-12-31 18:17 | W.PM.NPUPNS ---
Subjective NPU Subjective: 53-year-old male admitted with suicidal ideation, bipolar disorder with a history of polysubstance abuse. Patient had endorsed some depression. He had reported that he continued to remain homeless send reported ideas of needing to get continued treatment for alcohol use and for his mood disorder. He had reported having infrequent auditory hallucinations but stated they had been quieter. He had continued to isolate himself on the milieu. However, he was able to attend groups. He had reported that he had recently been discharged from alf and was court ordered to attend a rehabilitation program that did not allow him to be on medications. Mental Status Exam MSE Comments: This is an obese white male in hospital scrubs with adequate grooming and eye contact.? No abnormal movements except for mild psychomotor retardation.?He was cooperative with exam in mild distress.? Speech was normal in rate and slightly decreased in volume.? Mood described as allright. His affect was blunted. Thought process was linear. Thought content: Patient endorsed no suicidal thoughts with no plan and denied homicidal ideation. There were no delusions reported or but some paranoia and no clear delusions appreciatd today. He denied auditory hallucinations and denied visual hallucinations. Attention and concentration were adequate and memory was mostly reliable but none were formally tested.? He is alert and oriented x to person and place.? Insight was poor and judgment is impaired. Impulse control is poor. Vitals/I&O/Wt Last Vital Signs Temp 98.3 F 12/31/23 13:57 Pulse 82 12/31/23 13:57 Resp 16 12/31/23 13:57 BP 116/75 12/31/23 13:57 Pulse Ox 98 12/31/23 13:57 O2 Del Method Room Air 12/31/23 13:57 Data NPU 12/27/23 14:50 12/27/23 14:50 A&P Assessment and plan (1) Bipolar disorder with depression: (2) Depression with suicidal ideation: (3) Chronic schizophrenia: (4) Suicide attempt: (5) Alcohol dependence, in remission: (6) Antisocial personality disorder: (7) Suicidal ideation: (8) Amphetamine abuse: Plan This is a 53-year-old white male with a long history of multiple inpatient hospitalizations often with previous concerns for malingering which have been greatly reduced in recent years who presents today reporting that he has not been taking his medication in part due to recent discharge from alf where they did not necessarily keep his medication as prescribed. He was open to getting his medications restarted. He does have an ankle monitor. 1. Continue abilify 15mg daily Continue Seroquel 100 mg p.o. nightly to help with sleep. 2. Continue to-15 minute checks, 3.? Encourage individual, group and milieu therapy. 4.? Encourage sober living treatment after discharge at the highest level of care to which he is willing to commit.? 5. A[facility]ing placement [facility]. Patient court ordered to facility that doesn't allow any psychiatric medications to be prescribed. Involuntary Hold Information 96 Hour Hold: 96 Hour Involuntary Admission: Yes 96 Hour Hold Ending Date: 01/02/24 96 Hour Hold Ending Time: 00:01 Other Hold: Hold End Date: 01/02/24 Attestations NPU Medical Necessity Statement*: Inpatient hospitalization is medically necessary and deemed to ?be ?the clinically appropriate intervention ?at this time.? We will monitor/initiate medications and make changes as indicated.? The patient?s likely length of stay 3-5 days. Coding Level of Care Code Acute Code for [facility] Fwd Diagnoses Bipolar disorder with depression F31.9 Depression with suicidal ideation F32.A; R45.851 Chronic schizophrenia F20.9 Suicide attempt T14.91XA Alcohol dependence, in remission F10.21 Antisocial personality disorder F60.2 Suicidal ideation R45.851 Amphetamine abuse F15.10
[2023-12-31] MEDS: quetiapine 100 mg Tablet PO (19:28)
[2023-12-31] MEDS: trazodone 50 mg Tablet PO (19:28)
[2023-12-31] MEDS: ibuprofen 600 mg Tablet PO (19:29)
[2023-12-31 20:00] VITALS: BP 106/69; PULSE 80; RESP 18; TEMP 36.7; O2SAT 95
[2024-01-01 06:00] VITALS: BP 111/68; PULSE 75; RESP 16; TEMP 36.6; O2SAT 98
[2024-01-01] MEDS: nicotine 4 mg lozenge MUCOUS MEM ×6 (06:04→17:46)
[2024-01-01] MEDS: folic acid 1 mg Tablet PO (08:31)
[2024-01-01] MEDS: multivitamin therapeutic Tablet 1 TAB PO (08:31)
[2024-01-01] MEDS: ARIPiprazole 10 mg Tablet 15 MG PO (08:31)
[2024-01-01] MEDS: thiamine 100 mg Tablet PO (08:31)
[2024-01-01 12:32] VITALS: BP 117/71; PULSE 93; RESP 18; TEMP 36.8; O2SAT 97
[2024-01-01] MEDS: OLANZapine 5 mg ODT PO (14:59)
[2024-01-01] MEDS: haloperidol 5 mg Tablet PO (15:34)
--- NOTE | 2024-01-01 15:48 | P.NPUPN_ITS ---
Subjective NPU 2 Subjective: 53-year-old male admitted with suicidal ideation, bipolar disorder with a history of polysubstance abuse. Patient reported no side effects from his medications. He had tolerated the Abilify Maintena given yesterday at 400 mg intramuscularly. He reported adequate sleep. He denied any feelings of hopelessness. He had reported desire to avoid homelessness as it appeared to increase his likelihood of relapsing and using methamphetamine. He was able to attend groups. He reported no feelings of hopelessness at this time. He reported that the voices had diminished substantially with a combination of his medications. He reported no alcohol cravings at this time. Mental Status Exam 2 MSE Comments: This is an obese white male in hospital scrubs with adequate grooming and eye contact.? No abnormal movements except for mild psychomotor retardation.?He was cooperative with exam in mild distress.? Speech was normal in rate and slightly decreased in volume.? Mood described as better. His affect remained blunted. Thought process was linear. Thought content: Patient endorsed no suicidal thoughts with no plan and denied homicidal ideation. There were no delusions reported with less paranoia appreciated and no clear delusions appreciated. He denied auditory hallucinations and denied visual hallucinations. Attention and concentration were adequate and memory was mostly reliable but none were formally tested.? He is alert and oriented x to person and place and time. Insight was improving and judgment is improving as well. Impulse control is poor. Vitals/I&O/Wt Last Vital Signs Temp 98.2 F 01/01/24 12:32 Pulse 93 01/01/24 12:32 Resp 18 01/01/24 12:32 BP 117/71 01/01/24 12:32 Pulse Ox 97 01/01/24 12:32 O2 Del Method Room Air 12/31/23 13:57 Data NPU 12/27/23 14:50 12/27/23 14:50 A&P Assessment and plan (1) Bipolar disorder with depression: (2) Depression with suicidal ideation: (3) Chronic schizophrenia: (4) Suicide attempt: (5) Alcohol dependence, in remission: (6) Antisocial personality disorder: (7) Suicidal ideation: (8) Amphetamine abuse: Plan This is a 53-year-old white male with a long history of multiple inpatient hospitalizations often with previous concerns for malingering which have been greatly reduced in recent years who presents today reporting that he has not been taking his medication in part due to recent discharge from intermediate where they did not necessarily keep his medication as prescribed. He was open to getting his medications restarted. He does have an ankle monitor. 1. Continue abilify 15mg daily Continue Seroquel 100 mg p.o. nightly to help with sleep. Abilify 400mg IM given on 12/31/23. 2. Continue to-15 minute checks, 3.? Encourage individual, group and milieu therapy. 4.? Encourage sober living treatment after discharge at the highest level of care to which he is willing to commit.? 5. Awaiting placement at [place] [facility]. Patient court ordered to facility that doesn't allow any psychiatric medications to be prescribed. Involuntary Hold Information 2 96 Hour Hold: 96 Hour Involuntary Admission: Yes 96 Hour Hold Ending Date: 01/02/24 96 Hour Hold Ending Time: 00:01 Other Hold: Hold End Date: 01/02/24 Attestations NPU 2 Medical Necessity Statement*: Inpatient hospitalization is medically necessary and deemed to ?be ?the clinically appropriate intervention ?at this time.? We will monitor/initiate medications and make changes as indicated.? The patient?s likely length of stay 3-5 days. Coding Level of Care Code Acute Code for [facility] Fwd Diagnoses Bipolar disorder with depression F31.9 Depression with suicidal ideation F32.A; R45.851 Chronic schizophrenia F20.9 Suicide attempt T14.91XA Alcohol dependence, in remission F10.21 Antisocial personality disorder F60.2 Suicidal ideation R45.851 Amphetamine abuse F15.10
[2024-01-01 19:27] VITALS: BP 134/81; PULSE 85; RESP 17; TEMP 36.9; O2SAT 97
[2024-01-01] MEDS: trazodone 50 mg Tablet PO (20:25)
[2024-01-01] MEDS: quetiapine 100 mg Tablet PO (20:25)
[2024-01-02 06:00] VITALS: BP 129/79; PULSE 87; RESP 17; TEMP 36.7; O2SAT 98
[2024-01-02] MEDS: nicotine 4 mg lozenge MUCOUS MEM ×7 (06:02→20:01)
[2024-01-02] MEDS: folic acid 1 mg Tablet PO (08:17)
[2024-01-02] MEDS: multivitamin therapeutic Tablet 1 TAB PO (08:18)
[2024-01-02] MEDS: thiamine 100 mg Tablet PO (08:18)
[2024-01-02] MEDS: acetaminophen 325 mg Tablet 650 MG PO ×2 (08:18→20:01)
[2024-01-02] MEDS: ARIPiprazole 10 mg Tablet 15 MG PO (08:18)
[2024-01-02] MEDS: hyDROXYzine 25 mg Capsule 50 MG PO (12:57)
[2024-01-02 14:00] VITALS: BP 115/78; PULSE 100; RESP 18; TEMP 36.9; O2SAT 97
--- NOTE | 2024-01-02 17:02 | P.NPUPN_ITS ---
Subjective NPU 2 Subjective: 53-year-old male admitted with suicidal ideation, bipolar disorder with a history of polysubstance abuse. The patient was pleasant and reported that his hallucinations were quieter. He had expressed tics tensive and considerable worry about going back to the [employer] [facility] out of concern that they would not allow him to be on medications. A letter of support had been written suggesting that the patient needing to be placed in a facility or a living situation where he would be allowed to take his medications for his chronic illness. The patient remained agreeable with this plan. He reported no side effects from his Abilify Maintena. He had reported no cravings for alcohol currently. He had reported that he had been feeling less sad. He had been more communicative and less isolative on the milieu. Mental Status Exam 2 MSE Comments: This is an obese white male in hospital scrubs with adequate grooming and eye contact.? No abnormal movements except for mild psychomotor retardation.?He was cooperative with exam in mild distress.? Speech was decreased in rate and slightly decreased in volume.? Mood described as better. His affect remained flat. Yes thought process was linear. Thought content: Patient endorsed no suicidal thoughts with no plan and denied homicidal ideation. There were no delusions reported with less paranoia appreciated and no clear delusions appreciated. He denied auditory hallucinations and denied visual hallucinations. Attention and concentration were adequate and memory was mostly reliable but none were formally tested.? He is alert and oriented x t hello o person and place and time. Insight was improving and judgment is improving as well. Impulse control is poor. Vitals/I&O/Wt Last Vital Signs Temp 98.1 F 01/02/24 06:00 Pulse 87 01/02/24 06:00 Resp 17 01/02/24 06:00 BP 129/79 01/02/24 06:00 Pulse Ox 98 01/02/24 06:00 O2 Del Method Room Air 12/31/23 13:57 01/02/24 01/02/24 01/02/24 06:59 14:59 22:59 Intake Total 480 / 480 Balance 480 / 480 Data NPU 12/27/23 14:50 12/27/23 14:50 A&P Assessment and plan (1) Bipolar disorder with depression: (2) Depression with suicidal ideation: (3) Chronic schizophrenia: (4) Suicide attempt: (5) Alcohol dependence, in remission: (6) Antisocial personality disorder: (7) Suicidal ideation: (8) Amphetamine abuse: Plan This is a 53-year-old white male with a long history of multiple inpatient hospitalizations often with previous concerns for malingering which have been greatly reduced in recent years who presents today reporting that he has not been taking his medication in part due to recent discharge from detention where they did not necessarily keep his medication as prescribed. He was open to getting his medications restarted. He does have an ankle monitor. 1. Continue abilify 15mg daily Continue Seroquel 100 mg p.o. nightly to help with sleep. Abilify 400mg IM given on 12/31/23. 2. Continue to-15 minute checks, 3.? Encourage individual, group and milieu therapy. 4.? Encourage sober living treatment after discharge at the highest level of care to which he is willing to commit.? 5. Awaiting placement at care home on 01/05/24. Involuntary Hold Information 2 96 Hour Hold: 96 Hour Involuntary Admission: Yes 96 Hour Hold Ending Date: 01/02/24 96 Hour Hold Ending Time: 00:01 Other Hold: Hold End Date: 01/02/24 Attestations NPU 2 Medical Necessity Statement*: Inpatient hospitalization is medically necessary and deemed to ?be ?the clinically appropriate intervention ?at this time.? We will monitor/initiate medications and make changes as indicated.? The patient?s likely length of stay 3-5 days. Coding Level of Care Code Acute Code for [facility] Fwd Diagnoses Bipolar disorder with depression F31.9 Depression with suicidal ideation F32.A; R45.851 Chronic schizophrenia F20.9 Suicide attempt T14.91XA Alcohol dependence, in remission F10.21 Antisocial personality disorder F60.2 Suicidal ideation R45.851 Amphetamine abuse F15.10
[2024-01-02] MEDS: ibuprofen 600 mg Tablet PO (17:08)
[2024-01-02] MEDS: trazodone 50 mg Tablet PO (20:01)
[2024-01-02] MEDS: quetiapine 100 mg Tablet PO (20:01)
[2024-01-02 20:07] VITALS: BP 121/74; PULSE 92; RESP 18; TEMP 36.8; O2SAT 97
[2024-01-03 06:00] VITALS: BP 119/70; PULSE 74; RESP 16; TEMP 36.7; O2SAT 97
[2024-01-03] MEDS: nicotine 4 mg lozenge MUCOUS MEM ×6 (06:04→17:48)
[2024-01-03] MEDS: thiamine 100 mg Tablet PO (08:05)
[2024-01-03] MEDS: ARIPiprazole 10 mg Tablet 15 MG PO (08:05)
[2024-01-03] MEDS: multivitamin therapeutic Tablet 1 TAB PO (08:05)
[2024-01-03] MEDS: folic acid 1 mg Tablet PO (08:05)
[2024-01-03 14:00] VITALS: BP 132/76; PULSE 97; RESP 18; TEMP 36.4; O2SAT 98
--- NOTE | 2024-01-03 16:53 | P.NPUPN_ITS ---
Subjective NPU 2 Subjective: 53-year-old male admitted with suicidal ideation, bipolar disorder with a history of polysubstance abuse. The patient reported that he had been feeling a bit more depressed today. He had reported having a nightmare that had involved him jumping off of a bridge. He had reported no feelings of hopelessness. He had stated feeling more safe with the idea of remaining on his medications and not going to the ministry that had prevented him from staying on psychotropic medications. He stated he would possibly consider inpatient rehabilitation for addiction if possible as well. He had expressed interest in digital therapeutics for managing methamphetamine dependence. He reported no side effects from the Abilify at this time. He was compliant and redirectable on the milieu. Mental Status Exam 2 MSE Comments: This is an obese white male in hospital scrubs with adequate grooming and eye contact.? No abnormal movements except for mild psychomotor retardation.?He was cooperative with exam in mild distress.? Speech was decreased in rate and slightly decreased in volume.? Mood described as better. His affect was blunted. His thought process was linear and logical. Thought content: Patient endorsed no suicidal thoughts with no plan and denied homicidal ideation. There were no delusions reported with less paranoia appreciated and no clear delusions appreciated. He denied auditory hallucinations and denied visual hallucinations. Attention and concentration were adequate and Recent and remote memory was intact.? He is alert and oriented x person and place and time. Insight was improving and judgment is improving as well. Impulse control is poor. Vitals/I&O/Wt Last Vital Signs Temp 97.6 F 01/03/24 14:00 Pulse 97 01/03/24 14:00 Resp 18 01/03/24 14:00 BP 132/76 01/03/24 14:00 Pulse Ox 98 01/03/24 14:00 O2 Del Method Room Air 12/31/23 13:57 Data NPU 12/27/23 14:50 12/27/23 14:50 A&P Assessment and plan (1) Bipolar disorder with depression: (2) Depression with suicidal ideation: (3) Chronic schizophrenia: (4) Suicide attempt: (5) Alcohol dependence, in remission: (6) Antisocial personality disorder: (7) Suicidal ideation: (8) Amphetamine abuse: Plan This is a 53-year-old white male with a long history of multiple inpatient hospitalizations often with previous concerns for malingering which have been greatly reduced in recent years who presents today reporting that he has not been taking his medication in part due to recent discharge from skilled nursing where they did not necessarily keep his medication as prescribed. He was open to getting his medications restarted. He does have an ankle monitor. 1. Continue abilify 15mg daily Continue Seroquel 100 mg p.o. nightly to help with sleep. Abilify 400mg IM given on 12/31/23. 2. Continue to-15 minute checks, 3.? Encourage individual, group and milieu therapy. 4.? Encourage sober living treatment after discharge at the highest level of care to which he is willing to commit.? 5. Awaiting placement at longterm on 01/05/24. Involuntary Hold Information 2 96 Hour Hold: 96 Hour Involuntary Admission: Yes 96 Hour Hold Ending Date: 01/02/24 96 Hour Hold Ending Time: 00:01 Other Hold: Hold End Date: 01/02/24 Attestations NPU 2 Medical Necessity Statement*: Inpatient hospitalization is medically necessary and deemed to ?be ?the clinically appropriate intervention ?at this time.? We will monitor/initiate medications and make changes as indicated.? The patient?s likely length of stay 3-5 days. Coding Level of Care Code Acute Code for [facility] Fwd Diagnoses Bipolar disorder with depression F31.9 Depression with suicidal ideation F32.A; R45.851 Chronic schizophrenia F20.9 Suicide attempt T14.91XA Alcohol dependence, in remission F10.21 Antisocial personality disorder F60.2 Suicidal ideation R45.851 Amphetamine abuse F15.10
[2024-01-03] MEDS: quetiapine 100 mg Tablet PO (20:03)
[2024-01-03] MEDS: trazodone 50 mg Tablet PO (20:03)
[2024-01-03 20:41] VITALS: BP 127/70; PULSE 99; RESP 18; TEMP 36.7; O2SAT 96
[2024-01-04 06:00] VITALS: BP 123/84; PULSE 79; RESP 18; TEMP 36.8; O2SAT 98
[2024-01-04] MEDS: nicotine 4 mg lozenge MUCOUS MEM ×7 (06:28→18:20)
[2024-01-04] MEDS: ARIPiprazole 10 mg Tablet 15 MG PO (08:32)
[2024-01-04] MEDS: folic acid 1 mg Tablet PO (08:33)
[2024-01-04] MEDS: multivitamin therapeutic Tablet 1 TAB PO (08:33)
[2024-01-04] MEDS: thiamine 100 mg Tablet PO (10:47)
[2024-01-04 14:00] VITALS: BP 127/82; PULSE 102; RESP 17; TEMP 36.9; O2SAT 96
--- NOTE | 2024-01-04 14:51 | P.NPUPN_ITS ---
Subjective NPU 2 Subjective: 53-year-old male admitted with suicidal ideation, bipolar disorder with a history of polysubstance abuse. The patient had reported feeling less depressed. He reported no side effects from the Abilify. He continued to state desire to consider substance abuse treatment and continue to report motivation to remain on his medications including the intramuscular Abilify shot and Seroquel. The patient reported no mood symptoms at this time he was pleasant and redirectable on the milieu. He had reported that the hallucinations had been present but were less intense and less frequent intermittently. Mental Status Exam 2 MSE Comments: This is an obese white male in hospital scrubs with adequate grooming and eye contact.? No abnormal movements except for mild psychomotor retardation.?He was cooperative with exam in mild distress.? Speech was more productive in rate and normal in volume.? Mood described as better. His affect remained blunted. His thought process was linear and logical. Thought content: Patient endorsed no suicidal thoughts with no plan and denied homicidal ideation. There were no delusions reported with less paranoia appreciated and no clear delusions appreciated. He denied auditory hallucinations and denied visual hallucinations. Attention and concentration were adequate and Recent and remote memory was intact.? He is alert and oriented x person and place and time. Insight was improving and judgment is improving as well. Impulse control is poor. Vitals/I&O/Wt Last Vital Signs Temp 98.2 F 01/04/24 06:00 Pulse 79 01/04/24 06:00 Resp 18 01/04/24 06:00 BP 123/84 01/04/24 06:00 Pulse Ox 98 01/04/24 06:00 O2 Del Method Room Air 12/31/23 13:57 01/03/24 01/04/24 01/04/24 22:59 06:59 14:59 Intake Total 900 / 900 Balance 900 / 900 Weight last 48 hrs Weight 118.115 kg Data NPU 12/27/23 14:50 12/27/23 14:50 A&P Assessment and plan (1) Bipolar disorder with depression: (2) Depression with suicidal ideation: (3) Chronic schizophrenia: (4) Suicide attempt: (5) Alcohol dependence, in remission: (6) Antisocial personality disorder: (7) Suicidal ideation: (8) Amphetamine abuse: Plan This is a 53-year-old white male with a long history of multiple inpatient hospitalizations often with previous concerns for malingering which have been greatly reduced in recent years who presents today reporting that he has not been taking his medication in part due to recent discharge from [facility]-way where they did not necessarily keep his medication as prescribed. He was open to getting his medications restarted. He does have an ankle monitor. 1. Continue abilify 15mg daily Continue Seroquel 100 mg p.o. nightly to help with sleep. Abilify 400mg IM given on 12/31/23. 2. Continue to-15 minute checks, 3.? Encourage individual, group and milieu therapy. 4.? Encourage sober living treatment after discharge at the highest level of care to which he is willing to commit.? 5. Awaiting placement at care home on 01/05/24. Involuntary Hold Information 2 96 Hour Hold: 96 Hour Involuntary Admission: Yes 96 Hour Hold Ending Date: 01/02/24 96 Hour Hold Ending Time: 00:01 Other Hold: Hold End Date: 01/02/24 Attestations NPU 2 Medical Necessity Statement*: Inpatient hospitalization is medically necessary and deemed to ?be ?the clinically appropriate intervention ?at this time.? We will monitor/initiate medications and make changes as indicated.? The patient?s likely length of stay 3-5 days. Coding Level of Care Code Acute Code for [facility] Fwd Diagnoses Bipolar disorder with depression F31.9 Depression with suicidal ideation F32.A; R45.851 Chronic schizophrenia F20.9 Suicide attempt T14.91XA Alcohol dependence, in remission F10.21 Antisocial personality disorder F60.2 Suicidal ideation R45.851 Amphetamine abuse F15.10
[2024-01-04] MEDS: hyDROXYzine 25 mg Capsule 50 MG PO (18:05)
[2024-01-04 20:45] VITALS: BP 118/78; PULSE 79; RESP 18; TEMP 36.7; O2SAT 96
[2024-01-04] MEDS: quetiapine 100 mg Tablet PO (20:45)
[2024-01-05] MEDS: nicotine 4 mg lozenge MUCOUS MEM ×5 (05:57→14:51)
[2024-01-05 06:00] VITALS: BP 121/81; PULSE 81; RESP 18; TEMP 36.6; O2SAT 97
[2024-01-05] MEDS: ARIPiprazole 10 mg Tablet 15 MG PO (07:46)
[2024-01-05] MEDS: thiamine 100 mg Tablet PO (07:46)
[2024-01-05] MEDS: multivitamin therapeutic Tablet 1 TAB PO (07:46)
[2024-01-05] MEDS: folic acid 1 mg Tablet PO (07:46)
--- NOTE | 2024-01-05 11:51 | W.PM.NPUDCS ---
Diagnoses at Discharge Discharge Diagnosis (1) Bipolar disorder with depression: Status: Inactive (2) Depression with suicidal ideation: Status: Resolved (3) Chronic schizophrenia: Status: Acute (4) Suicide attempt: Status: Resolved (5) Alcohol dependence, in remission: Status: Acute (6) Antisocial personality disorder: Status: Inactive (7) Suicidal ideation: Status: Resolved (8) Amphetamine abuse: Status: Acute Reason for Visit Reason for Visit: SI Brief History: History of Present Illness mEil Castro is a 53 year old male who presented to the emergency department with the following report: Chief Complaint: Psychiatric Symptoms Stated Complaint: SI Time Seen by Provider: 12/27/23 14:39 History of Present Illness: 54-year-old man who presents to the emergency room with suicidal thoughts. He says he recently just got out of nursing home. He says he had no place to go and he is no longer on his depression medications. He has a plan to either take pills or hang himself. He was admitted to the neuropsychiatric unit for definitive treatment of those issues. He is known to [facility] psychiatric services through mostly inpatient services but occasional outpatient services and has been in penitentiary recently for 50 some days. An excerpt of his last inpatient hospitalization discharge summary is included below for context and the fact that there have been no substantive changes. He presents today reporting that while in penitentiary his medications got off track. He reports they discharged him without a clear follow-up and without the resources to get his medications restarted as they were prior. He presented hoping that his medication could be restarted and he get back on track. We discussed the risks, benefits and alternatives of us initiating medication as we had during his last hospitalization and he understood and agreed to proceed as is documented in this note. Per his 09/02/2023 [facility] inpatient psychiatric discharge summary: Discharge Diagnosis (1) Bipolar disorder with depression: Status: Inactive (2) Depression with suicidal ideation: Status: Resolved (3) Chronic schizophrenia: Status: Acute (4) Suicide attempt: Status: Resolved (5) Alcohol dependence, in remission: Status: Acute (6) Antisocial personality disorder: Status: Inactive (7) Suicidal ideation: Status: Resolved (8) Amphetamine abuse: Status: Acute Reason for Visit Reason for Visit: HI, SI Brief History: History of Present Illness Emil Castro is a 53 year old male who presented to the emergency department with the following report: Chief Complaint: Psychiatric Symptoms Stated Complaint: HI, SI Time Seen by Provider: 08/30/23 17:10 Source: patient Mode of arrival: ambulatory Limitations: no limitations History of Present Illness: Patient is a 53-year-old male with extensive psychiatric history who presents to the emergency department complaining of suicidal ideations, homicidal ideations, and auditory hallucinations today. Patient recently was discharged from the [facility] at the end of July, and states that other than receiving an injection he has not taken any medications. Initially he states he was doing okay though today was started to hear birds talk to him and had the overwhelming urge to shoot himself in the head. He also states that he has been having increased anger issues where he feels like he could shoot someone else in the head. He denies any illicit drug use other than smoking marijuana recently. He does have extensive past medical history of alcohol abuse. He denies drinking recently. When I ask him where he lives, he states that he has just been camping out lately. He does report a history of attempting suicide in the past, where he hung a rope over a tree and put his neck through it though did not go any further than this. He is not reporting any visual hallucinations or tactile hallucinations. No medical symptoms reported at this time. He requests to come into the psychiatric unit to be seen at this time. MD complaint: other (SI/HI/auditory hallucinations) Onset (ago): hour(s) Duration: constant History of same: Yes Relieving factors: none Exacerbating factors: none Associated symptoms: Reports auditory hallucinations, homicidal ideation and suicidal ideation; Deny visual hallucinations If self harm: admits thoughts of self harm and has plan. He was admitted to the neuropsychiatric unit for definitive treatment of those issues. He is known quite well through inpatient and some outpatient services. He has a long history of high utilization of services back when he was having more addiction issues and there were concerns often for malingering but in recent years his psychosis has become more prevalent and concern for malingering and antisocial personality disorder have greatly reduced. He was last seen in July 2023 and an excerpt of discharge summary is included below for context and that there have been limited substantive changes and he can be at times a poor historian. He presents reporting when he left he went back [place]. He said that things were going fairly well until the last couple of weeks when he was having auditory hallucinations feeling like birds were communicating with him and just feeling like the medication was not working. We discussed the fact that he had been on the Abilify Maintena which should have been renewed about 9 days ago. We discussed the risks, benefits and alternatives of resuming the long-acting injectable and specifically switching him to Abilify Asimtufii to give him an additional 30 days before medication issues might manifest. Otherwise he reports that he is looking forward to working with the social work team for any assistance they have for his psychosocial challenges. Per his 07/28/2023 [facility] inpatient psychiatric discharge summary: Discharge Diagnosis (1) Bipolar disorder with depression: Status: Inactive (2) Depression with suicidal ideation: Status: Resolved (3) Chronic schizophrenia: Status: Acute (4) Suicide attempt: Status: Resolved (5) Alcohol dependence, in remission: Status: Acute (6) Antisocial personality disorder: Status: Inactive (7) Suicidal ideation: Status: Resolved (8) Amphetamine abuse: Status: Acute Reason for Visit Reason for Visit: MHE Brief History: History of Present Illness Emil Castro is a 53 year old male with a previous history of bipolar disorder and otherwise specified, and schizophrenia along with methamphetamine abuse who presented to the emergency department with reoccurring thoughts about wanting to harm himself and had been gone 3 days ago. He had stated that he began to hear birds that were telling him to jump off of a bridge. He had reported that he had been abstaining from the use of alcohol for several months but had relapsed and had consumed 1 single beer. He reported no recent use of methamphetamine and his urine drug screen was negative on arrival here. He had reported that he was having some thoughts of cutting himself with a knife and states that he reports that he had stopped all of his medications for several months. He reports having frequent mood swings. He had endorsed a history of having racing thoughts. He reports that he has been distracted by his thoughts. He had reported having thoughts of others trying to harm him and stated that he was generally distrustful of others. He reports some difficulties with concentration. 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 Patient had reported no substantiative changes since his last hospitalization in November 2022. Psychiatric History: none currently, no outpatient follow ups, no new inpatient hospitalizations noted Current medications: none (previous medications include Abilify Maintena monthly, Abilify 15mg orally, [facility] Discharge Summary from 11/29/22: History of Present Illness Emil Castro is a 52 year old male who presented to the emergency department with the following report: Chief Complaint: Psychiatric Symptoms Stated Complaint: SI Time Seen by Provider: 11/22/22 19:07 History of Present Illness: 52-year-old male with history of mood disorder and currently noncompliant with his medication presents emergency room with vague complaint of homicidal and suicidal ideation for the past few weeks. Patient reveals that he wants to shoot himself in the head and anticoagulant was attacking him. Patient denies any nausea, vomiting, chest pain, shortness of breath. Patient reveals that he is hearing voices from the birds. Associated symptoms: Reports auditory hallucinations, homicidal ideation and suicidal ideation; Deny visual hallucinations or delusions. He was admitted to the neuropsychiatric unit for definitive treatment of those issues. 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 He presents as he generally has recently with suicidal versus homicidal ideation and with limited resources off of medication. He presents reporting [place] trying to manage things air without significant resources he reports he has been off his medication for some time but gives no real indicator of what led to that change. He was last seen here 6 weeks ago and has continued struggles with ayan stability, housing and direction for that matter. He presents today without irritability which is a common factor in his presentations. He reports a desire to get assistance resuming his medication but when we talked about things like the ERE program and a stronger [facility] presence, he was fairly ambivalent about that kind of increased resources. We discussed the risks, benefits and alternatives of restarting his Abilify at an appropriate dose and he understood agreed to proceed as documented in this note. We broached the subject of the possibility of a long-acting injection. An excerpt of his 10/08/2022 discharge summary is included below for context. Per his 10/08/2022 [facility] inpatient psychiatric discharge summary: Discharge Diagnosis (1) Bipolar disorder with depression: Status: Acute (2) Depression with suicidal ideation: Status: Resolved (3) Suicide attempt: Status: Acute (4) Alcohol dependence, in remission: Status: Acute (5) Drug-induced psychotic disorder: Status: Inactive (6) Antisocial personality disorder: Status: Inactive Reason for Visit Reason for Visit: SI Brief History: History of Present Illness Emil Castro is a 52 year old male who presented to the emergency department with the following report: Chief Complaint: Psychiatric Symptoms Stated Complaint: SI Time Seen by Provider: 10/02/22 11:11 Source: patient Mode of arrival: ambulatory History of Present Illness: 52-year-old male presents emergency room with complaint of suicidal ideations racing thoughts some hallucinations. Patient has a history of alcoholism as well as bipolar disorder. He states he stopped taking all of his medicines 5 or 6 months ago however he was hospitalized in early May of this year. He was discharged on May 08 and then readmitted on May 18. He did admit to drinking this morning he is still mildly agitated but not confrontational easily redirected. He cannot give me a specific reason as to why he stopped his medications. He did not particularly identify side effects he does states he did not get them refilled MD complaint: suicidal ideation Onset (ago): day(s) Duration: changing over time and getting worse History of same: Yes Relieving factors: none Exacerbating factors: alcohol Context: recent alcohol abuse Associated psychiatric symptoms: none Associated symptoms: Deny auditory hallucinations, visual hallucinations, delusions, depression, homicidal ideation, suicidal ideation or racing thoughts Treatments prior to arrival: none If self harm: admits thoughts of self harm and has plan. He was admitted to the neuropsychiatric unit for definitive treatment of those issues. Patient presents today much like he is presented recently. UDS was unremarkable with no noted active drug use. This is in jackson contrast to his presentations 2+ years ago such that he was very agitated by the question about addiction. We discussed the fact that this is part of our normal screening questions. Which did seem to settle help. He presented quite agitated and not very open to questioning endorsing that this irritability is the reason that he came to the hospital. Reporting that he is finding himself to be quite easily agitated. He reports that after his May hospitalization he discontinued the medication. He reports that he went and got a job but then all that fell apart. We discussed the issue with the medication and why he discontinued it and he reports that the Seroquel which previously was a stable and standard medication in his regimen made him too tired and unable to function. He reported an openness to a trial of a new medication and we discussed the risks, benefits and alternatives of starting Abilify 10 mg p.o. daily and he understood and agreed to proceed as is documented in this note. Otherwise he reported being homeless and having no real options and needing something to help with his agitation. An excerpt of his May 2022 hospitalization is included below for historical context. Per his 05/30/2022 [facility] inpatient psychiatric discharge summary: Discharge Diagnosis (1) Depression with suicidal ideation: Status: Resolved (2) Suicide attempt: Status: Acute (3) Alcohol dependence, in remission: Status: Acute (4) Drug-induced psychotic disorder: Status: Inactive (5) Antisocial personality disorder: Status: Chronic (6) Depressed bipolar I disorder: Status: Resolved Permanent problem details: Patient does not name and get his prescriptions filled when discharged. I am discontinuing all his meds and referring him to outpatient follow-up. Reason for Visit Reason for Visit: SI,MHE Brief History: History of Present Illness Emil Castro is a 51 year old male who presented to the emergency part with the following report: Chief Complaint: Psychiatric Symptoms Stated Complaint: SI,MHE Time Seen by Provider: 05/17/22 17:36 Source: patient Mode of arrival: ambulatory Limitations: no limitations History of Present Illness: Patient is a 51-year-old male who is well-known to the emergency department here yet again for complaints of suicidal ideations, homicidal ideations, auditory hallucinations, and aggression/anger outbursts. Patient has had multiple NPU admissions over the past few months. Patient states he never has followed up with [facility] or a primary care provider after his discharges. Patient states he is taking his prescribed medications. He continues to drink alcohol. States he has a plan to hang himself with a rope. He states he feels homicidal towards men in general and sometimes wants to slit their throats. MD complaint: suicidal ideation and other (anger/agression, HI, auditory hallucinations) Duration: constant History of same: Yes Relieving factors: none Exacerbating factors: none Context: recent alcohol abuse Associated psychiatric symptoms: depression, suicidal ideation, homicidal ideation and auditory hallucinations Associated symptoms: Reports auditory hallucinations, depression, homicidal ideation and suicidal ideation; Deny visual hallucinations Treatments prior to arrival: none If self harm: admits thoughts of self harm and has plan. He was admitted to the Neuropsych Unit for definitive treatment of issues. He presents like he has recently with significant irritability reporting concerned he is going to hurt someone. He reported that his medication based on his discharge functioning that seems unlikely. However he continues significant difficulties with his housing and managing resources. The fairly distant story reporting openness to continue medication but not expressing any clarity as what he was to do next. We discussed working with treatment team on Friday to start to look more viable and sustainable housing and resources, which she agrees with but not emphatically. We agreed to restart his medication and see how he does with regular administration and probably consider increasing his bedtime Seroquel and he understood agreed to proceed as is documented in this note Per his 05/08/2022 [facility] inpatient psychiatric discharge summary: SI Brief History: History of Present Illness Emil Castro is a 51 year old male who presented to the emergency department with the following report: Chief Complaint: Psychiatric Symptoms Stated Complaint: SI Time Seen by Provider: 05/01/22 19:21 Source: patient Mode of arrival: ambulatory Limitations: no limitations History of Present Illness: 51-year-old male states he has a history of depression along with bipolar he had a suicide attempt impassable he states over the last 5 to 6 days he been having increased irritability along with suicidal thoughts he states he had thoughts of hanging himself from a tree. He states that he realized that he needed to get help or reason to harm himself he denies any worsening proving factors he is currently not on any meds. Associated symptoms: Reports depression and suicidal ideation He was admitted to the neuropsychiatric unit for definitive treatment of those issues. He presents today reporting that he had been spending most of his time after his last discharge in [place]. He reports that he has been working and doing fairly well. He reports initially he was taking his medication but at some point he stopped taking it and he could not give any reasonable explanation for why he did that or why he has a habit of doing that. He reports that he came back to [place] for some time off and to do some camping. He reports that he started having great irritability with people around him started having some really negative thoughts about reacting to his irritability. He thought then that it was best to come to the hospital before he did something that he regretted. We discussed the risk benefits and alternatives of resuming the medications he had previously done well on and he understood and agreed to proceed as is documented in this note. An excerpt of his last discharge summary is included below for context as he was not interested in details from a history standpoint. Per his 08/27/2021 [facility] inpatient psychiatric discharge summary: Discharge Diagnosis (1) Depression with suicidal ideation: Status: Resolved (2) Suicide attempt: Status: Acute (3) Alcohol dependence, in remission: Status: Acute (4) Drug-induced psychotic disorder: Status: Acute (5) Antisocial personality disorder: Status: Chronic (6) Depressed bipolar I disorder: Status: Resolved Permanent problem details: Patient does not name and get his prescriptions filled when discharged. I am discontinuing all his meds and referring him to outpatient follow-up. Reason for Visit Reason for Visit: SI Brief History: History of Present Illness Emil Castro is a 51 year old male who presented to the emergency department the following report: Chief complaint: Psychiatric Symptoms Stated complaint: SI Time Seen by Provider: 08/23/21 19:44 History of Present Illness: HPI: [51]yo patient w/ hx of depression presenting for suicidal ideation with plan. Patient plans to hang himself and decided against the last minute and came in to the ED. On arrival, the patient is AAOx3 and cooperative with my evaluation. No focal complaints of chest pain, shortness of breath, palpitations, N/V, focal GI/ complaints. Currently denies HI. No complaints of hallucinations. Onset: acute Duration: ongoing Location: home Severity: severe Associated symptoms: Deny chest pain, dyspnea, nausea, rash, palpitations or vomiting He was admitted to the neuropsychiatric unit for definitive treatment of those issues. Patient is well-known to the unit from multiple past inpatient stays the last of which was in June. He had previously been here much more often but had been having a modicum of success followed by some recent challenges again. He reports that after his last stay he had gone to [place] and was doing fairly well and told someone on convoluted story about how he was coming back here to get his mail arranged and that he decided once he was here that he was going to go ahead and say and he went to [employer] [facility] and they were lining up a place for him to stay in the next 2 or 3 days. But then frustrations and bad choices get the best of him which led him to presenting to the hospital yesterday. He reports another problem that led to him coming his way was that he has he will get his medication for about the last month or so he would not and could not explain whether this was related to him not following through on something to get refills or some other concern. Review of the chart suggested maybe he was given refills in the left in beginning of June. Unclear why that occurred. He was indicated to moving forward, getting his own place to [employer] [facility] getting back on medication and trying to remain in the right direction. Documentation shows that he has been doing better when he comes to his addictive behavior however he reports sobriety extending back more than 6 months and I am unconvinced that that is accurate though. We discussed the risk benefits alternatives of getting his medications restarted and trying to assist him in stability on that front and he understood agreed proceed as is documented in this note. An excerpt of his June stay is included below for context. Hospital course 05/08/22 : He slowly acclimated to the individual, group and milieu therapies provided. He presented reporting irritability being off of medication. Seroquel was started at bedtime and 2 daytime doses were added. He was titrated up to 50 mg twice a day and 100 milligrams at night. He continues to have challenging living successes at home is becoming factor. He dorsoplantar this maneuver he has had some success. With his medications restarted and he did have significant improvement. He was able to contract for safety outside of the hospital prior to discharge. During the hospitalization, patient had routine laboratory studies which were within normal limits except for few outliers. Additionally there was a general medical evaluation which was also within normal limits and revealed no new acute processes. Discharge Summary: At the time of discharge, lethality was denied and psychosis was resolving. Mood and anxiety were well managed. Patient endorsed a plan to avoid all drugs of abuse and follow-up with the aftercare recommendations of the treatment team. Patient was evaluated and deemed to be absent credible lethality, and was voluntary and denied wanting any continued inpatient hospitalization, so he was discharged. Hospital Course 05/30/22: Discharge Summary: During the hospitalization, patient had routine laboratory studies which were within normal limits except for few outliers. Additionally there was a general medical evaluation which was also within normal limits and revealed no new acute processes. At the time of discharge, lethality was denied and psychosis was resolving. Mood and anxiety were well managed. Patient endorsed a plan to avoid all drugs of abuse and follow-up with the aftercare recommendations of the treatment team. Patient was evaluated and deemed to be absent credible lethality, and had achieved the maximum benefit from an inpatient hospitalization, so was discharged. Hospital Course He slowly acclimated to the individual, group and milieu therapies provided. He presented once again having had struggles with getting his medication and continues to struggle with having dependable secure [place]. [place] mental health care. Additionally he had not manage the legal challenges that was confronting him at the last visit and now he reports that he has a warrant that he must manage. We restarted the medication and he was given Abilify Maintena while in the hospital and discharged on that as well because we were unable to get him the Abilify Asimtufii. He worked with the social work team for appropriate outpatient follow-up. He reported when he got to [place] this time he was going to turn himself in so that his legal issues could be resolved. He had significant improvement during the stay and was able to contract for safety outside the hospital prior to discharge. During the hospitalization, the patient had routine laboratory studies which were within normal limits except for a few outliers. Additionally, there was a general medical evaluation which was also within normal limits and revealed no new acute processes. At the time of discharge, lethality was denied and psychosis was resolving. Mood and anxiety were well managed. The patient endorsed a plan to avoid all drugs of abuse and follow up with the aftercare recommendations of the treatment team. The patient was evaluated and deemed to be absent credible lethality and had achieved the maximum benefit from an inpatient hospitalization, and so was discharged. Hospital Course Hospital Course During the hospitalization, the patient had routine laboratory studies which were within normal limits except for a few outliers.? Additionally, there was a general medical evaluation which was also within normal limits and revealed no new acute processes.? At the time of discharge, lethality was denied and psychosis was resolving.? Mood and anxiety were well managed.? The patient endorsed a plan to avoid all drugs of abuse and follow up with the aftercare recommendations of the treatment team.? The patient was evaluated and deemed to be absent credible lethality and had achieved the maximum benefit from an inpatient hospitalization, and so was discharged. ? Involuntary Hold Information 96 Hour Hold: 96 Hour Involuntary Admission: Yes 96 Hour Hold Ending Date: 01/02/24 96 Hour Hold Ending Time: 00:01 Other Hold: Hold End Date: 01/02/24 Mental Status Exam MSE Comments: This is an obese white male in hospital scrubs with adequate grooming and eye contact.? No abnormal movements except for mild psychomotor retardation.?He was cooperative with exam in mild distress.? Speech was more productive in rate and normal in volume.? Mood described as better. His affect remained restricted. His thought process was linear and logical. Thought content: Patient endorsed no suicidal thoughts with no plan and denied homicidal ideation. There were no delusions reported with less paranoia appreciated and no clear delusions appreciated. He denied auditory hallucinations and denied visual hallucinations. Attention and concentration were adequate and Recent and remote memory was intact.? He is alert and oriented x person and place and time. Insight was improving and judgment is improving as well. Impulse control is better. Discharge Data Studies Completed and Pending: Laboratory Results WBC 12.03 10^3/uL (3. 29-11.43) H 12/27/23 14:50 RBC 4.82 10^6/uL (3.8 5-5.65) 12/27/23 14:50 Hgb 15.50 g/dL (11.27 -16.99) 12/27/23 14:50 Hct 45.2 % (37-53) 12/27/23 14:50 MCV 93.8 fl (82-101) 12/27/23 14:50 MCH 32.2 pg (27-33) 12/27/23 14:50 MCHC 34.3 g/dL (30-55) 12/27/23 14:50 RDW 12.4 % (12.1-15.1 ) 12/27/23 14:50 Plt Count 211 10^3/cmm (157 -399) 12/27/23 14:50 MPV 10.2 fL (7.4-10.4 ) 12/27/23 14:50 Neut % (Auto) 71.5 % 12/27/23 14:50 Lymph % (Auto) 17.2 % 12/27/23 14:50 [place] % (Auto) 8.8 % 12/27/23 14:50 Eos % (Auto) 1.3 % 12/27/23 14:50 Baso % (Auto) 0.8 % 12/27/23 14:50 Neut # (Auto) 8.59 10^3/uL (1.8 -7.7) H 12/27/23 14:50 Lymph # (Auto) 2.1 10^3/uL (0.8- 4.8) 12/27/23 14:50 [place] # (Auto) 1.1 10^3/uL (0.2- 0.9) H 12/27/23 14:50 Eos # (Auto) 0.2 10^3/uL (0.0- 0.8) 12/27/23 14:50 Baso # (Auto) 0.1 10^3/uL (0.0- 0.1) 12/27/23 14:50 Nucleated RBC % (a uto) 0 % 12/27/23 14:50 Nucleated RBCs # 0.0 /100WBC 12/27/23 14:50 Sodium 142 mmol/L (136-1 45) 12/27/23 14:50 Potassium 3.6 mmol/L (3.5-5 .1) 12/27/23 14:50 Chloride 107 mmol/L (98-10 7) 12/27/23 14:50 Carbon Dioxide 20 mmol/L (22-29) L 12/27/23 14:50 Anion Gap 18.6 (5-19) 12/27/23 14:50 BUN 10 mg/dL (6-20) 12/27/23 14:50 Creatinine 0.9 mg/dL (0.7-1. 2) 12/27/23 14:50 GFR Calculation 87.9 mL/min (90-1 30) L 12/27/23 14:50 Glucose 111 mg/dL (65-115 ) 12/27/23 14:50 Calculated Osmolal ity 294 mOsm/kg (285- 295) 12/27/23 14:50 Calcium 8.6 mg/dL (8.5-10 .5) 12/27/23 14:50 Total Bilirubin 0.4 mg/dL (0.15-1 .2) 12/27/23 14:50 AST 26 U/L (0-40) 12/27/23 14:50 ALT 27 U/L (0-41) 12/27/23 14:50 Alkaline Phosphata se 101 U/L (40-130) 12/27/23 14:50 Total Protein 7.2 g/dL (6.6-8.7 ) 12/27/23 14:50 Albumin 4.6 g/dL (3.5-5.2 ) 12/27/23 14:50 Globulin 2.6 g/dL (1.3-4.6 ) 12/27/23 14:50 TSH 1.28 uIU/mL (0.27 -4.20) 12/27/23 14:50 Urine Color Yellow (Yellow) 12/29/23 09:35 Urine Appearance Clear (CLEAR) 12/29/23 09:35 Urine pH 7.0 (5-7) 12/29/23 09:35 Ur Specific Gravit y 1.003 (1.005-1.0 30) L 12/29/23 09:35 Urine Protein Negative (Negati ve) 12/29/23 09:35 Urine Glucose (UA) Negative (Normal ) 12/29/23 09:35 Urine Ketones Negative (Negati ve) 12/29/23 09:35 Urine Blood Negative (Negati ve) 12/29/23 09:35 Urine Nitrate Negative (Negati ve) 12/29/23 09:35 Urine Bilirubin Negative (Negati ve) 12/29/23 09:35 Urine Urobilinogen 0.2 mg/dL (Negati ve) 12/29/23 09:35 Ur Leukocyte Viktoria ase Negative (Negati ve) 12/29/23 09:35 Urine RBC 0-2 /hpf (0-2) 12/29/23 09:35 Urine WBC 0-5 /hpf (0-5) 12/29/23 09:35 Ur Squamous Epith Cells 0-5 /hpf (0-5) 12/29/23 09:35 Amorphous Sediment Not Reportable 12/29/23 09:35 Urine Bacteria None seen /hpf (N ONE) 12/29/23 09:35 Hyaline Casts 0-4 /lpf H 12/29/23 09:35 Salicylates < 0.3 mg/dL (3-10 ) L 12/27/23 14:50 Urine Opiates Scre en Negative ng/mL (N egative) 12/29/23 09:35 Acetaminophen < 5.0 ug/mL (10-3 0) L 12/27/23 14:50 Ur Barbiturates Sc reen Negative ng/mL (N egative) 12/29/23 09:35 Ur Phencyclidine S crn Negative ng/mL (N egative) 12/29/23 09:35 Ur Amphetamines Sc reen Negative ng/mL (N egative) 12/29/23 09:35 U Benzodiazepines Scrn Negative ng/mL (N egative) 12/29/23 09:35 Urine Cocaine Scre en Negative ng/mL (N egative) 12/29/23 09:35 U Marijuana (THC) Screen Negative ng/mL (N egative) 12/29/23 09:35 Ethyl Alcohol 66 mg/dL (0-10) H 12/27/23 14:50 Vitals: Last Vital Signs Temp 97.8 F 01/05/24 06:00 Pulse 81 01/05/24 06:00 Resp 18 01/05/24 06:00 BP 121/81 01/05/24 06:00 Pulse Ox 97 01/05/24 06:00 O2 Del Method Room Air 12/31/23 13:57 Discharge Plan Discharge Patient Disposition: Home Condition: Stable Prescriptions: New aripiprazole [Abilify] 15 mg tablet 15 mg PO DAILY Qty: 30 1RF folic acid 1 mg Tablet 1 mg PO DAILY 30 Days Qty: 30 0RF multivitamin with folic acid [Thera] 400 mcg Tablet 1 tab PO DAILY 30 Days Qty: 30 1RF thiamine mononitrate (vit B1) [Vitamin B-1 (mononitrate)] 100 mg Tablet 100 mg PO DAILY 30 Days Qty: 30 1RF Abilify Maintena 400 mg suspension,extended rel recon 400 mg IM Q28D 28 Days Qty: 1 1RF Rx Instructions: Patient IM shot due on 01/28/24 aripiprazole [Abilify] 15 mg tablet 15 mg PO DAILY Qty: 30 0RF quetiapine 100 mg Tablet 100 mg PO BEDTIME 30 Days Qty: 30 0RF quetiapine [Seroquel] 100 mg tablet 100 mg PO .qhs Qty: 30 1RF trazodone 50 mg Tablet 50 mg PO BEDTIME PRN (Reason: Sleep) 30 Days Qty: 30 1RF trazodone 50 mg tablet 50 mg PO DAILY Qty: 30 1RF Discharge Orders: Discharge Order (Routine); Ordered 01/05/24 Ordered By: Arash Crowley Referrals: [facility] [Other] - 1-3 days (Walk in for services Friday thru Friday 8am to 5pm.) Discharge Diet: Usual diet Discharge Activity: Resume usual activity Patient Instructions: Quetiapine (By mouth), Aripiprazole (By mouth), Aripiprazole (By injection) (Kamlesh Duarte Dual-Chambered..., Depression (DC), Schizophrenia (DC), Help Prevent Suicide (DC), Opioid Safety Discharge Attestations NPU Time Spent in Discharge Care*: less than 30 min Specific Discharge Activities: Specific discharge activities: educating patient, discussing with correctional casework specialist/social workers/dc planners and documenting/other paperwork Status at Discharge: Cognitive status at discharge: cognitively intact, Behavioral status at discharge: cooperative, Coding Level of Care Code Acute Code for [facility] Fwd Diagnoses Bipolar disorder with depression F31.9 Depression with suicidal ideation F32.A; R45.851 Chronic schizophrenia F20.9 Suicide attempt T14.91XA Alcohol dependence, in remission F10.21 Antisocial personality disorder F60.2 Suicidal ideation R45.851 Amphetamine abuse F15.10
--- NOTE | 2024-01-05 12:05 | DCPLANNER ---
IMM completed 01/05/24 @ 12:02pm. Pt was given a copy of rights and he stated he understood his rights.
[2024-01-05 12:15] VITALS: BP 121/81; PULSE 81; RESP 18; TEMP 36.6; O2SAT 97
== END 2024-01-05 15:17 | disposition home or self-care (01) | DRG 885 ==
LOC: ER 15:20 → NP 17:59
PROVIDERS: Admitting Provider Psychiatry & Neurology Psychiatry; Emergency Provider Emergency Medicine; Visit Provider Psychiatry & Neurology Psychiatry
DX: F25.1 Schizoaffective disorder, depressive type (principal); R45.851 Suicidal ideations; Z59.00 Homelessness unspecified; T43.596A Underdosing of other antipsychotics and neuroleptics, initial encounter; E66.9 Obesity, unspecified; F10.21 Alcohol dependence, in remission; F60.2 Antisocial personality disorder; F15.10 Other stimulant abuse, uncomplicated; F41.0 Panic disorder [episodic paroxysmal anxiety]; Z91.128 Patient's intentional underdosing of medication regimen for other reason; Z68.35 Body mass index [BMI] 35.0-35.9, adult
CPT/HCPCS: 36415; 80053; 80306; 80307; 81001; 84443; 85025; 93005; 96372; 97150; 97165; 99285

== ENCOUNTER 2024-09-14 08:38 | Emergency (ER) | payer MEDICARE, MEDICAID, SELFPAY ==
--- OUTSIDE RECORDS SUMMARY | 2020-10-24 10:47 | XMS_ITS | Continuity of Care Document ---
Author Organization [facility] Address [id number] [address] Phone Care Team Providers Care Flight Communications Operator Name Role Phone [facility], Community Unavailable Unavailable Allergies, Adverse Reactions, Alerts Substance Reaction Status Criticality PENICILLIN Active No Information Medications Medication Instructions Dosage Effective Dates (start - stop) Status Comments hydrocodone 5 mg-acetaminophen 325 mg tablet take 1 tablet by oral route every 6 hours as needed for pain for post-op pain 1.00 tablet - Active clindamycin 150 mg capsule take 2 capsule by oral route every 6 hours 300 MG - Active ibuprofen 800 mg tablet take 1 tablet by oral route 3 times every day with food 800 MG - Active Prozac 40 mg capsule take 1 capsule by oral route every day in the morning 40 MG - Active gabapentin 100 mg capsule take 3 capsule by oral route 3 times every day 300 MG - Active Procedures Procedure Date Panoramic Film Bitewings Four Films Intraoral Periapical First Film Intraoral Periapical Each Additional Film Intraoral Periapical Each Additional Film Intraoral Periapical Each Additional Film Comprehensive Oral Evaluatio n New Or Established Extraction, Erupted Tooth Or Exposed Salma t (Elevati Extraction, Erupted Tooth Or Exposed Salma t (Elevati EDR Approval Note EDR Approval Note Advance Directives Directive Yes / No Effective Date File Name No Information Encounters Encounter Description Practice Location Reason(s) For Visit Diagnoses Date Provider Providers Copied on Encounter [facility], [id number] [place] [id number] [place] tel:[phone] Family Medicine No Information [facility]. [address], [place], [address], [place]. tel:[phone] 8352 [facility], [id number]- [facility], [place], [place], [id number], [place] tel:[phone] [facility] Encounter for dental exam and cleaning w/o abnormal findings Indy Valerio. [address] [place], [address], [place]. tel:[phone] Referring Provider: Teodoro Quintana, [address] [place], [address]. tel:[phone] Family History Family Member Type Diagnosis Age At Onset No Information Payers Payer name Insurance type Covered alliance party ID Authoriza tion(s) No Information Social History Type Description Quantity Date Captured Comments Alcohol Use Details Unknown Caffeine Use Details Unknown Tobacco Use Status Smoking Status No Information Sex Male Gender Identity Male Chief Complaint And Reason For Visit No Information Reason For Referral Reason For Referral No Information Plan Of Treatment Date Type Action Status Goal Tobacco cessation counseling completed History Of Present Illness Encounter Date Complaint History Of Prese nt Illness No Information Functional Status Date Functional Assessmen t No Information Instructions Date Instruction Additional Infor mation Lifestyle education Related to D ental Examination Assessments Type Assessment Date No Information Patient Care Teams Name Effective Dates (start - stop) Status Members No Information
[2024-09-14 08:53] VITALS: BP 172/81; PULSE 91; RESP 18; TEMP 36.9; O2SAT 99; BMI 27.1
[2024-09-14 08:57] VITALS: BP 172/81; PULSE 91; RESP 18; TEMP 36.9; O2SAT 99
--- NOTE | 2024-09-14 09:15 | ED.C_ITS ---
HPI - Psych 2 General: Chief Complaint: Psychiatric Symptoms Stated Complaint: MHE Time Seen by Provider: 09/14/24 08:58 Source: patient Mode of arrival: ambulatory Limitations: no limitations History of Present Illness: Patient is a 54-year-old male presents to ED today stating he is acutely suicidal. Patient states he witnessed two of his sons get their brains blown out on the edge of a [place] a few days ago. Patient states he is struggling immensely with this. He states he is suicidal with a plan to overdose on pills or to blow his own brains out to join them . He states he is also homicidal towards the individual that murdered them. Patient does have a history of drug and alcohol abuse. MD complaint: suicidal ideation and feels depressed Onset (ago): day(s) Duration: constant Context: significant life stressor Associated psychiatric symptoms: depression and suicidal ideation Associated symptoms: Reports depression, homicidal ideation and suicidal ideation; Deny auditory hallucinations or visual hallucinations Treatments prior to arrival: none If self harm: admits thoughts of self harm and has plan Related Data Previous Rx's ?Medication ?Instructions ?Recorded aripiprazole 15 mg tablet (Abilify) 15 mg PO DAILY #30 tabs 01/05/24 aripiprazole 15 mg tablet (Abilify) 15 mg PO DAILY #30 tabs 01/05/24 aripiprazole 400 mg intramuscular 400 mg IM Q28D 28 da ys #1 ea 01/05/24 suspension,extended release (Abilify Maintena) multivitamin with folic acid 400 1 tab PO DAILY 30 day s #30 tabs 01/05/24 mcg tablet (Thera) quetiapine 100 mg tablet (Seroquel) 100 mg PO .qhs #30 tabs 01/05/24 thiamine mononitrate (vit B1) 100 100 mg PO DAILY 30 d ays #30 tabs 01/05/24 mg tablet (Vitamin B-1 (mononitrate)) trazodone 50 mg tablet 50 mg PO BEDTIME PRN Sleep 3 0 days 01/05/24 #30 tabs trazodone 50 mg tablet 50 mg PO DAILY #30 tabs 12/09 10/31 Allergies Allergy/AdvReac Type Severity Reaction Status Date / Time Penicillins Allergy ALGY-Hives Verified 09/24/23 16:24 Review of Systems 2 Const: Denies: fever(s) or chills Card: Denies: chest pain, palpitations, lightheadedness or syncope Resp: Denies: dyspnea GI: Denies: abdominal pain, nausea, vomiting or diarrhea Skin/Breast: Denies: rash Neuro: Denies: headache(s) Psych: Reports: depression, hopelessness, suicidal ideation and homicidal ideation; Denies: paranoia, visual hallucinations or auditory hallucinations PFSH ED 2 PFSH: Medical History Amphetamine abuse Bipolar disorder with depression Chronic alcohol abuse Alcohol dependence, in remission Bipolar 2 disorder Drug-induced psychotic disorder Malingering Antisocial personality disorder Social History Smoking and tobacco/nicotine status: current every day tobacco/nicotine user Physical Exam 2 Const: COMMON NORMALS: no acute distress, patient oriented x3, no limitations, alert and well nourished GENERAL APPEARANCE: cooperative O RIENTATION/CONSCIOUSNESS: Yes awake, Yes oriented to person, Yes oriented to place and Yes oriented to time Resp: COMMON NORMALS: normal respiratory effort and clear to auscultation bilaterally AUSCULTATION: clear to auscultation bilaterally Cardio: COMMON NORMALS: regular rate and regular rhythm RATE: regular rate RHYTHM: regular rhythm Neuro: COMMON NORMALS: patient oriented x3 SENSORIUM/ORIENTATION: Yes alert, Yes oriented to person, Yes oriented to place and Yes oriented to time Psych: COMMON NORMALS: mental status grossly normal, Normal thought process present, cooperative, normal affect, speech normal, activity/motor behavior normal and denies hallucinations APPEARANCE: Yes grossly normal ATTITUDE: Yes calm ACTIVITY/MOTOR BEHAVIOR: Yes appropriate eye contact and No psychomotor agitation SPEECH: Yes normal speech MOOD & AFFECT: Yes sad and Yes tearful THOUGHT PROCESS: Normal thought process present THOUGHT CONTENT: Yes Suicidality present and Yes Homicidality present M ELISABET/COGNITION: Yes memory grossly intact and Yes cognition grossly intact I NSIGHT: Fair insight present (Psych) JUDGEMENT: Fair judgement present (Psych) Course 2 Consultations: Consultation #1: Dr. Crowley-accepts admission to NPU Vital Signs: Vital signs: Vital Signs Temperature 98.4 F 09/14/24 08:57 Pulse Rate 91 09/14/24 08:57 Respiratory Rate 18 09/14/24 08:57 Blood Pressure 172/81 09/14/24 08:57 Pulse Oximetry 99 09/14/24 08:57 Oxygen Delivery Me thod Room Air 09/14/24 08:57 MDM - Psych Medical Decision Making Patient will be admitted to NPU to Dr. Crowley. He is on a 96-hour hold. Medical Records I reviewed the patient's medical records. Lab Data I reviewed the patient's lab results. 09/14/24 09:40 09/14/24 09:40 Laboratory Results WBC 10.97 10^3/uL (3.29-11.43) 09/14/24 09:40 RBC 4.57 10^6/uL (3.85-5.65) 09/14/24 09:40 Hgb 14.90 g/dL (11.27-16.99) 09/14/24 09:40 Hct 43.0 % (37-53) 09/14/24 09:40 MCV 94.1 fl (82-101) 09/14/24 09:40 MCH 32.6 pg (27-33) 09/14/24 09:40 MCHC 34.7 g/dL (30-55) 09/14/24 09:40 RDW 13.1 % (12.1-15.1) 09/14/24 09:40 Plt Count 179 10^3/cmm (157-399) 09/14/24 09:40 MPV 9.7 fL (7.4-10.4) 09/14/24 09:40 Neut % (Auto) 74.5 % 09/14/24 09:40 Lymph % (Auto) 12.6 % 09/14/24 09:40 [place] % (Auto) 11.2 % 09/14/24 09:40 Eos % (Auto) 0.8 % 09/14/24 09:40 Baso % (Auto) 0.5 % 09/14/24 09:40 Neut # (Auto) 8.17 10^3/uL (1.8-7.7) H 09/14/24 09:40 Lymph # (Auto) 1.4 10^3/uL (0.8-4.8) 09/14/24 09:40 [place] # (Auto) 1.2 10^3/uL (0.2-0.9) H 09/14/24 09:40 Eos # (Auto) 0.1 10^3/uL (0.0-0.8) 09/14/24 09:40 Baso # (Auto) 0.1 10^3/uL (0.0-0.1) 09/14/24 09:40 Nucleated RBC % (auto) 0 % 09/14/24 09:40 Nucleated RBCs # 0.0 /100WBC 09/14/24 09:40 Sodium 137 mmol/L (136-145) 09/14/24 09:40 Potassium 3.3 mmol/L (3.5-5.1) L 09/14/24 09:40 Chloride 102 mmol/L (98-107) 09/14/24 09:40 Carbon Dioxide 21 mmol/L (22-29) L 09/14/24 09:40 Anion Gap 17.3 (5-19) 09/14/24 09:40 BUN 13 mg/dL (6-20) 09/14/24 09:40 Creatinine 0.8 mg/dL (0.7-1.2) 09/14/24 09:40 GFR Calculation 100.4 mL/min (90-130) 09/14/24 09:40 Glucose 99 mg/dL (65-115) 09/14/24 09:40 Calculated Osmolality 284 mOsm/kg (285-295) L 09/14/24 09:40 Calcium 9.0 mg/dL (8.5-10.5) 09/14/24 09:40 Total Bilirubin 1.4 mg/dL (0.15-1.2) H 09/14/24 09:40 AST 57 U/L (0-40) H 09/14/24 09:40 ALT 41 U/L (0-41) 09/14/24 09:40 Alkaline Phosphatase 70 U/L (40-130) 09/14/24 09:40 Total Protein 7.1 g/dL (6.6-8.7) 09/14/24 09:40 Albumin 4.4 g/dL (3.5-5.2) 09/14/24 09:40 Globulin 2.7 g/dL (1.3-4.6) 09/14/24 09:40 TSH 1.20 uIU/mL (0.27-4.20) 09/14/24 09:40 Salicylates < 0.3 mg/dL (3-10) L 09/14/24 09:40 Acetaminophen < 5.0 ug/mL (10-30) L 09/14/24 09:40 Ethyl Alcohol < 10 mg/dL (0-10) 09/14/24 09:40 Influenza A (PCR) Negative (Negative) 09/14/24 10:47 Influenza Type B (PCR) Negative (Negative) 09/14/24 10:47 RSV (PCR) Negative (Negative) 09/14/24 10:47 SARS-CoV-2 (PCR) Negative (Negative) 09/14/24 10:47 No radiology studies performed this visit Discharge Plan Discharge Patient Disposition: Admitted As Inpatient Clinical Impression: Suicidal ideation, Homicidal ideation Condition: Stable Coding Level of Care Code ED Accounts Payable Clerk for Wilder Long
[2024-09-14 09:52] LABS: Hematocrit 43.0 % (37-53); Hemoglobin 14.90 g/dL (11.27-16.99); Mean Corpuscular HGB Conc 34.7 g/dL (30-55); Mean Corpuscular Hemoglobin 32.6 pg (27-33); Mean Corpuscular Volume 94.1 fl (82-101); Nucleated Red Blood Cells % 0 %; Platelet Count 179 10^3/cmm (157-399); Red Blood Count 4.57 10^6/uL (3.85-5.65); White Blood Count 10.97 10^3/uL (3.29-11.43)
[2024-09-14 10:08] LABS: Alanine Aminotransferase 41 U/L (0-41); Albumin Level 4.4 g/dL (3.5-5.2); Alkaline Phosphatase 70 U/L (40-130); Anion Gap 17.3 (5-19); Aspartate Amino Transferase 57 U/L (0-40); Blood Urea Nitrogen 13 mg/dL (6-20); Calcium 9.0 mg/dL (8.5-10.5); Carbon Dioxide 21 mmol/L (22-29); Chloride 102 mmol/L (98-107); Creatinine Clr Calc Pharmacy 122.2572; Globulin 2.7 g/dL (1.3-4.6); Glucose 99 mg/dL (65-115); Osmolality Calculated 284 mOsm/kg (285-295); Potassium 3.3 mmol/L (3.5-5.1); Sodium 137 mmol/L (136-145); Total Protein 7.1 g/dL (6.6-8.7)
[2024-09-14 10:14] LABS: Acetaminophen < 5.0 ug/mL (10-30); Alcohol Level < 10 mg/dL (0-10); Salicylate < 0.3 mg/dL (3-10)
--- NOTE | 2024-09-14 10:33 | ECG_ITS ---
[facility]: 2024-[facility]14 Pat Name: Emil Castro Department: Room: Gender: Male Detasseler: : 1970 Requested By: Lupe Melgar Order Number: [id number] Elise MD: Byron Jones M.D. Measurements Intervals [place] Rate: 83 P: 40 NH: 191 QRS: -40 QRSD: 126 T: 76 QT: 428 QTc: 504 Interpretive Statements SINUS RHYTHM LEFT AXIS DEVIATION [QRS AXIS < -30] MODERATE INTRAVENTRICULAR CONDUCTION DELAY [110+ ms QRS DURATION] NONSPECIFIC ST & T-WAVE ABNORMALITY PROLONGED QT INTERVAL Compared to ECG 12/27/2023 15:12:54 Left-axis deviation now present Intraventricular conduction delay now present T-wave abnormality now present Prolonged QT interval now present Left anterior fascicular block no longer present Electronically Signed On 09-14-2024 17:20:11 CDT by Byron Jnoes M.D. [email or web address]
--- NOTE | 2024-09-14 10:48 | PC.NURSE ---
96 hr rights reviewed with pt @1000 with assistance of [facility] ammunition officer Ron Dumont All education reviewed with patient at this time. Pt verbalized understanding to hold parameters, and stated he had no questions for HS. Pt copy was left with pt. Pt declined a snack or drink as he just had a breakfast tray delivered to him. No further needs at this time.
[2024-09-14 10:52] LABS: Thyroid Stimulating Hormone 1.20 uIU/mL (0.27-4.20)
[2024-09-14 11:38] LABS: Respiratory Syncytial Virus Ce NEGATIVE (Negative); SARS-CoV-2 PCR NEGATIVE (Negative)
[2024-09-14 12:00] VITALS: BP 114/72; PULSE 78; RESP 14; O2SAT 98
[2024-09-14 13:08] LABS: Glucose Urine UA Negative (Normal); Nitrate Urine Negative (Negative); Specific Gravity, Urine 1.005 (1.005-1.030)
[2024-09-14 13:13] LABS: Add Urine Microscopic? YES
[2024-09-14 13:15] LABS: PCP Screen Urine Negative (Negative)
[2024-09-14 17:07] VITALS: PULSE 81; O2SAT 95
[2024-09-14 20:18] VITALS: BP 108/73; PULSE 72; RESP 17; O2SAT 97
== END 2024-09-14 20:26 ==
LOC: ER 12:07 → NP 13:30
PROVIDERS: Emergency Provider Physician Assistant
DX: R45.851 Suicidal ideations (principal); R45.850 Homicidal ideations; Z11.52 Encounter for screening for COVID-19
CPT/HCPCS: 36415; 80053; 80306; 80307; 81001; 84443; 85025; 87637; 93005; 99285

== ENCOUNTER 2024-09-27 16:47 | Inpatient (IN) | payer OTHER, MEDICAID, SELFPAY ==
--- OUTSIDE RECORDS SUMMARY | 2020-10-24 10:47 | XMS_ITS | Continuity of Care Document ---
Author Organization [facility] Address [address] [id number] [address] Phone Care Team Providers Care Electrical Service Technician Name Role Phone [facility], Community Unavailable Unavailable Allergies, Adverse Reactions, Alerts [...] oral route every day in the morning - Active gabapentin 100 mg capsule take [...] Diagnoses Date Provider Providers Copied on Encounter [facility], [id number] [place] [id number] [place] tel:[phone] Family Medicine No Information [facility]. [address], [place], [id number], [place]. tel:[phone] 6841 [facility], [id number]- [facility], [place], [place], [id number], [place] tel:[phone] [facility] Encounter for dental exam and cleaning w/o abnormal findings Indy Valerio. [address] [place], [address], [place]. tel:[phone] Referring Provider: Teodoro Quintana, [address] [place], [address]. tel:[phone] Family History Family Member Type Diagnosis Age At Onset No Information Payers Payer name Insurance type Covered libertarian ID Authoriza tisu(s) No Information Social History Type Description Quantity [...] No Information Instructions Date Instruction Additional Infor monseion Lifestyle education Related to D ental Examination Assessments Type Assessment Date No Information Patient Care Teams Name Effective Dates (start - stop) Status Members No Information
[2024-09-27 16:57] VITALS: BP 122/77; PULSE 112; RESP 18; TEMP 36.7; O2SAT 98
--- NOTE | 2024-09-27 17:09 | ED.C_ITS ---
HPI - Psych 2 General: Chief Complaint: Psychiatric Symptoms Stated Complaint: SI Time Seen by Provider: 09/27/24 16:57 History of Present Illness: 54-year-old male presents to the emergen cy room admitting to have been drinking today as well as having used methamphetamines. Having paranoid delusions. He is also having some homicidal and suicidal ideation he has a specific person he is wanting to kill. He is very angry at him but cannot voice to me why. He is also having suicidal thoughts with a plan with attending either to sit outside and of dehydration or walk out into traffic. He admits to having done methamphetamine about 8 to 10 hours ago. He has a history of alcohol use has had multiple previous admissions to our facility for this as well as being transferred once to his age. He is agreeable and redirectable has not had any aggressive behaviors here. Related Data Previous Rx's ?Medication ?Instructions ?Recorded aripiprazole 15 mg tablet 15 mg PO DAILY 12 days #12 t abs 10/03/24 aripiprazole 400 mg intramuscular 400 mg IM Q28D 28 da ys #1 ea 10/03/24 suspension,extended release (Abilify Maintena) pantoprazole 40 mg tablet,delayed 40 mg PO BID 30 days #60 tabs 10/03/24 release quetiapine 100 mg tablet 100 mg PO BEDTIME 30 days #3 0 tabs 10/03/24 Allergies Allergy/AdvReac Type Severity Reaction Status Date / Time Penicillins Allergy ALGY-Hives Verified 09/24/23 16:24 Review of Systems 2 Const: Denies: fever(s) or chills Card: Denies: chest pain Resp: Denies: dyspnea GI: Denies: abdominal pain : Denies: dysuria, urinary frequency or urinary urgency Musc: Denies: neck pain or back pain Skin/Breast: Denies: rash PFSH ED 2 PFSH: Medical History Amphetamine abuse Bipolar disorder with depression Chronic alcohol abuse Alcohol dependence, in remission Bipolar 2 disorder Drug-induced psychotic disorder Malingering Antisocial personality disorder Social History Smoking and tobacco/nicotine status: current every day tobacco/nicotine user Physical Exam 2 Const: GENERAL APPEARANCE: cooperative ORIENTATION/CONSCIOUSNESS: Yes awake, Yes oriented to person, Yes oriented to place and Yes oriented to time HENMT: COMMON NORMALS: normocephalic, atraumatic and hearing grossly normal bilaterally HEAD & SCALP: normocephalic and atraumatic Resp: COMMON NORMALS: normal respiratory effort, No retractions, No use of accessory muscles and clear to auscultation bilaterally AUSCULTATION: clear to auscultation bilaterally Cardio: COMMON NORMALS: regular rate, regular rhythm and No murmurs present (Cardio) RATE: regular rate RHYTHM: regular rhythm GI: COMMON NORMALS: Soft to palpation and No hepatosplenomegaly present A USCULTATION: Yes normoactive bowel sounds PALPATION: Yes Soft to palpation, No Tenderness to palpation present (GI), No Guarding due to palpation present (GI) and Yes No hepatosplenomegaly present Extremity: COMMON NORMALS: normal to inspection, capillary refill normal, no clubbing, cyanosis or edema, no calf tenderness and no pedal edema Neuro: SENSORIUM/ORIENTATION: Yes oriented to person, Yes oriented to place and Yes oriented to time Skin: COMMON NORMALS: no rashes or lesions noted GENERAL SKIN EXAM: no rashes or lesions noted Course 2 Vital Signs: Vital signs: Vital Signs Temperature 98.5 F 10/03/24 13:27 Pulse Rate 108 H 10/03/24 13:27 Respiratory Rate 17 10/03/24 13:27 Blood Pressure 117/71 10/03/24 13:27 Pulse Oximetry 98 10/03/24 13:27 Oxygen Delivery Me thod Room Air 10/03/24 06:00 MDM - Psych Medical Decision Making Suicidal ideation. Will Admit discussed with Dr. Bond who is on-call for psychiatry orders placed. Medically cleared. Medical Records I reviewed the patient's medical records. Lab Data I reviewed the patient's lab results. 09/27/24 17:20 09/27/24 17:20 Laboratory Results WBC 18.14 10^3/uL (3.29-11.43) H 09/27/24 17:20 RBC 4.85 10^6/uL (3.85-5.65) 09/27/24 17:20 Hgb 16.10 g/dL (11.27-16.99) 09/27/24 17:20 Hct 46.0 % (37-53) 09/27/24 17:20 MCV 94.8 fl (82-101) 09/27/24 17:20 MCH 33.2 pg (27-33) H 09/27/24 17:20 MCHC 35.0 g/dL (30-55) 09/27/24 17:20 RDW 13.3 % (12.1-15.1) 09/27/24 17:20 Plt Count 210 10^3/cmm (157-399) 09/27/24 17:20 MPV 10.2 fL (7.4-10.4) 09/27/24 17:20 Neut % (Auto) 78.3 % 09/27/24 17:20 Lymph % (Auto) 10.0 % 09/27/24 17:20 [place] % (Auto) 9.9 % 09/27/24 17:20 Eos % (Auto) 0.6 % 09/27/24 17:20 Baso % (Auto) 0.6 % 09/27/24 17:20 Neut # (Auto) 14.23 10^3/uL (1.8-7.7) H 09/27/24 17:20 Lymph # (Auto) 1.8 10^3/uL (0.8-4.8) 09/27/24 17:20 [place] # (Auto) 1.8 10^3/uL (0.2-0.9) H 09/27/24 17:20 Eos # (Auto) 0.1 10^3/uL (0.0-0.8) 09/27/24 17:20 Baso # (Auto) 0.1 10^3/uL (0.0-0.1) 09/27/24 17:20 Nucleated RBC % (auto) 0 % 09/27/24 17:20 Nucleated RBCs # 0.0 /100WBC 09/27/24 17:20 Sodium 143 mmol/L (136-145) 09/27/24 17:20 Potassium 3.5 mmol/L (3.5-5.1) 09/27/24 17:20 Chloride 104 mmol/L (98-107) 09/27/24 17:20 Carbon Dioxide 19 mmol/L (22-29) L 09/27/24 17:20 Anion Gap 23.5 (5-19) H 09/27/24 17:20 BUN 14 mg/dL (6-20) 09/27/24 17:20 Creatinine 1.3 mg/dL (0.7-1.2) H 09/27/24 17:20 GFR Calculation 57.3 mL/min (90-130) L 09/27/24 17:20 Glucose 114 mg/dL (65-115) 09/27/24 17:20 Calculated Osmolality 297 mOsm/kg (285-295) H 09/27/24 17:20 Calcium 9.6 mg/dL (8.5-10.5) 09/27/24 17:20 Total Bilirubin 1.3 mg/dL (0.15-1.2) H 09/27/24 17:20 AST 57 U/L (0-40) H 09/27/24 17:20 ALT 48 U/L (0-41) H 09/27/24 17:20 Alkaline Phosphatase 83 U/L (40-130) 09/27/24 17:20 Total Protein 7.2 g/dL (6.6-8.7) 09/27/24 17:20 Albumin 4.4 g/dL (3.5-5.2) 09/27/24 17:20 Globulin 2.8 g/dL (1.3-4.6) 09/27/24 17:20 Salicylates < 0.3 mg/dL (3-10) L 09/27/24 17:20 Urine Opiates Screen Negative ng/mL (Negative) 09/27/24 18:22 Acetaminophen < 5.0 ug/mL (10-30) L 09/27/24 17:20 Ur Barbiturates Screen Negative ng/mL (Negative) 09/27/24 18:22 Ur Phencyclidine Scrn Negative ng/mL (Negative) 09/27/24 18:22 Ur Amphetamines Screen Positive ng/mL (Negative) H 09/27/24 18:22 U Benzodiazepines Scrn Negative ng/mL (Negative) 09/27/24 18:22 Urine Cocaine Screen Negative ng/mL (Negative) 09/27/24 18:22 U Marijuana (THC) Screen Negative ng/mL (Negative) 09/27/24 18:22 Ethyl Alcohol < 10 mg/dL (0-10) 09/27/24 17:20 No radiology studies performed this visit Discharge Plan Discharge Patient Disposition: Admitted As Inpatient Admit Provider: Sam Bond Clinical Impression: Suicidal ideation, Chronic schizophrenia, Bipolar 2 disorder, Alcohol dependence, in remission Condition: Stable Discharge Diet: Regular Discharge Activity: Resume usual activity Coding Level of Care Code ED Realtime Reporter for Wilder Long
[2024-09-27 17:44] LABS: Hematocrit 46.0 % (37-53); Hemoglobin 16.10 g/dL (11.27-16.99); Mean Corpuscular HGB Conc 35.0 g/dL (30-55); Mean Corpuscular Hemoglobin 33.2 pg (27-33); Mean Corpuscular Volume 94.8 fl (82-101); Nucleated Red Blood Cells % 0 %; Platelet Count 210 10^3/cmm (157-399); Red Blood Count 4.85 10^6/uL (3.85-5.65); White Blood Count 18.14 10^3/uL (3.29-11.43)
--- NOTE | 2024-09-27 17:48 | PC.NURSE ---
Involuntary 96 hour hold rights read and reviewed with patient. Ron from security present during reading of rights. Patient verbalized understandings and copy of rights given to patient.
[2024-09-27 18:21] LABS: Acetaminophen < 5.0 ug/mL (10-30); Alanine Aminotransferase 48 U/L (0-41); Albumin Level 4.4 g/dL (3.5-5.2); Alkaline Phosphatase 83 U/L (40-130); Anion Gap 23.5 (5-19); Aspartate Amino Transferase 57 U/L (0-40); Blood Urea Nitrogen 14 mg/dL (6-20); Calcium 9.6 mg/dL (8.5-10.5); Carbon Dioxide 19 mmol/L (22-29); Chloride 104 mmol/L (98-107); Creatinine Clr Calc Pharmacy 84.7919; Globulin 2.8 g/dL (1.3-4.6); Glucose 114 mg/dL (65-115); Osmolality Calculated 297 mOsm/kg (285-295); Potassium 3.5 mmol/L (3.5-5.1); Salicylate < 0.3 mg/dL (3-10); Sodium 143 mmol/L (136-145); Total Protein 7.2 g/dL (6.6-8.7)
[2024-09-27 18:54] LABS: PCP Screen Urine Negative (Negative)
[2024-09-27 18:55] LABS: Alcohol Level < 10 mg/dL (0-10)
[2024-09-27 19:13] VITALS: BP 127/76; PULSE 105; RESP 18; O2SAT 95
[2024-09-27 21:35] VITALS: BP 114/77; PULSE 92; RESP 18; TEMP 36.9; O2SAT 98
[2024-09-27 21:49] VITALS: BP 114/77; PULSE 92; RESP 18; TEMP 36.9; O2SAT 98
[2024-09-27] MEDS: alum-mag-hydroxide-sime 30 mL UDC PO (23:37)
[2024-09-28 06:00] VITALS: BP 110/69; PULSE 69; RESP 16; O2SAT 97
--- NOTE | 2024-09-28 07:22 | W.PM.NPUH&PS ---
Providers/Chief Complaint Admitting Physician: Sam Bond MD Chief Complaint: SI HPI NPU History of Present Illness Emil Castro is a 54 year old male who presented to the emergency department with the following report: Chief Complaint: Psychiatric Symptoms Stated Complaint: SI Time Seen by Provider: 09/27/24 16:57 History of Present Illness: 54-year-old male presents to the emergency room admitting to have been drinking today as well as having used methamphetamines. Having paranoid delusions. He is also having some homicidal and suicidal ideation he has a specific person he is wanting to kill. He is very angry at him but cannot voice to me why. He is also having suicidal thoughts with a plan with attending either to sit outside and of dehydration or walk out into traffic. He admits to having done methamphetamine about 8 to 10 hours ago. He has a history of alcohol use has had multiple previous admissions to our facility for this as well as being transferred once to his age. He is agreeable and redirectable has not had any aggressive behaviors here. He was admitted to the neuropsychiatric unit for definitive treatment of those issues. He is known to [facility] psychiat[facility] through inpatient and outpatient services. His last inpatient stay was in December of last year. An excerpt from that discharge summary is included below for context and the fact that there have been limited substantive changes. He was on Abilify at that time but reports that he has not been taking it and would like to restart that medication. He had no real clear indication of why the medication was stopped but that he acknowledges him being unwell off of the medication. We discussed the risks, benefits and alternatives of restarting Abilify and he understood and agreed to proceed as is documented in this note. He identified having some significant homicidal thoughts and that he had been homeless again and having the struggles that come with that. Per his 01/05/2024 [facility] inpatient psychiatric discharge summary: Discharge Diagnosis (1) Bipolar disorder with depression: Status: Inactive (2) Depression with suicidal ideation: Status: Resolved (3) Chronic schizophrenia: Status: Acute (4) Suicide attempt: Status: Resolved (5) Alcohol dependence, in remission: Status: Acute (6) Antisocial personality disorder: Status: Inactive (7) Suicidal ideation: Status: Resolved (8) Amphetamine abuse: Status: Acute Reason for Visit Reason for Visit: SI Brief History: History of Present Illness Emil Castro is a 53 year old male who presented to the emergency department with the following report: Chief Complaint: Psychiatric Symptoms Stated Complaint: SI Time Seen by Provider: 12/27/23 14:39 History of Present Illness: 54-year-old man who presents to the emergency room with suicidal thoughts. He says he recently just got out of [facility]. He says he had no place to go and he is no longer on his depression medications. He has a plan to either take pills or hang himself. He was admitted to the neuropsychiatric unit for definitive treatment of those issues. He is known to [facility] psychiatric services through mostly inpatient services but occasional outpatient services and has been in [facility] recently for 50 some days. An excerpt of his last inpatient hospitalization discharge summary is included below for context and the fact that there have been no substantive changes. He presents today reporting that while in [facility] his medications got off track. He reports they discharged him without a clear follow-up and without the resources to get his medications restarted as they were prior. He presented hoping that his medication could be restarted and he get back on track. We discussed the risks, benefits and alternatives of us initiating medication as we had during his last hospitalization and he understood and agreed to proceed as is documented in this note. Per his 09/02/2023 [facility] inpatient psychiatric discharge summary: Discharge Diagnosis (1) Bipolar disorder with depression: Status: Inactive (2) Depression with suicidal ideation: Status: Resolved (3) Chronic schizophrenia: Status: Acute (4) Suicide attempt: Status: Resolved (5) Alcohol dependence, in remission: Status: Acute (6) Antisocial personality disorder: Status: Inactive (7) Suicidal ideation: Status: Resolved (8) Amphetamine abuse: Status: Acute Reason for Visit Reason for Visit: HI, SI Brief History: History of Present Illness Emil Castro is a 53 year old male who presented to the emergency department with the following report: Chief Complaint: Psychiatric Symptoms Stated Complaint: HI, SI Time Seen by Provider: 08/30/23 17:10 Source: patient Mode of arrival: ambulatory Limitations: no limitations History of Present Illness: Patient is a 53-year-old male with extensive psychiatric history who presents to the emergency department complaining of suicidal ideations, homicidal ideations, and auditory hallucinations today. Patient recently was discharged from the NPU at the end of July, and states that other than receiving an injection he has not taken any medications. Initially he states he was doing okay though today was started to hear birds talk to him and had the overwhelming urge to shoot himself in the head. He also states that he has been having increased anger issues where he feels like he could shoot someone else in the head. He denies any illicit drug use other than smoking marijuana recently. He does have extensive past medical history of alcohol abuse. He denies drinking recently. When I ask him where he lives, he states that he has just been camping out lately. He does report a history of attempting suicide in the past, where he hung a rope over a tree and put his neck through it though did not go any further than this. He is not reporting any visual hallucinations or tactile hallucinations. No medical symptoms reported at this time. He requests to come into the psychiatric unit to be seen at this time. MD complaint: other (SI/HI/auditory hallucinations) Onset (ago): hour(s) Duration: constant History of same: Yes Relieving factors: none Exacerbating factors: none Associated symptoms: Reports auditory hallucinations, homicidal ideation and suicidal ideation; Deny visual hallucinations If self harm: admits thoughts of self harm and has plan. He was admitted to the neuropsychiatric unit for definitive treatment of those issues. He is known quite well through inpatient and some outpatient services. He has a long history of high utilization of services back when he was having more addiction issues and there were concerns often for malingering but in recent years his psychosis has become more prevalent and concern for malingering and antisocial personality disorder have greatly reduced. He was last seen in July 2023 and an excerpt of discharge summary is included below for context and that there have been limited substantive changes and he can be at times a poor historian. He presents reporting when he left he went back to his common behavior [place]. He said that things were going fairly well until the last couple of weeks when he was having auditory hallucinations feeling like birds were communicating with him and just feeling like the medication was not working. We discussed the fact that he had been on the Abilify Maintena which should have been renewed about 9 days ago. We discussed the risks, benefits and alternatives of resuming the long-acting injectable and specifically switching him to Abilify Asimtufii to give him an additional 30 days before medication issues might manifest. Otherwise he reports that he is looking forward to working with the social work team for any assistance they have for his psychosocial challenges. Hospital Course During the hospitalization, the patient had routine laboratory studies which were within normal limits except for a few outliers. Additionally, there was a general medical evaluation which was also within normal limits and revealed no new acute processes. At the time of discharge, lethality was denied and psychosis was resolving. Mood and anxiety were well managed. The patient endorsed a plan to avoid all drugs of abuse and follow up with the aftercare recommendations of the treatment team. The patient was evaluated and deemed to be absent credible lethality and had achieved the maximum benefit from an inpatient hospitalization, and so was discharged. Meds NPU Home Medications ?Medication ?Instructions ?Recorded ?Confirmed ?Last Taken ?Type No Known Home Medications 09/27/24 09/27/24 Unknown History Allergies Allergy/AdvReac Type Severity Reaction Status Date / Time Penicillins Allergy ALGY-Hives Verified 09/24/23 16:24 PFS NPU PFSH: Medical History Amphetamine abuse Bipolar disorder with depression Chronic alcohol abuse Alcohol dependence, in remission Bipolar 2 disorder Drug-induced psychotic disorder Malingering Antisocial personality disorder Social History Smoking and tobacco/nicotine status: current every day tobacco/nicotine user Mental Status Exam MSE Comments: This is an obese white male in hospital scrubs with adequate grooming and eye contact.? No abnormal movements except for mild psychomotor retardation.?He was cooperative with exam in mild distress.? Speech was normal in rate and slightly decreased in volume.? Mood described as as good as can be expected, his affect was slightly subdued. Thought process was linear. Thought content: Patient endorsed fleeting suicidal thoughts with no plan and current homicidal ideation. There were no delusions reported or but some paranoia and bizarre delusions noted, he endorsed auditory hallucinations and denied visual hallucinations. Attention and concentration were adequate and memory was mostly reliable but none were formally tested.? He is alert and oriented x to person and place.? Insight was poor and judgment is impaired. Impulse control is poor. Vitals/I&O/Wt Last Vital Signs Temp 98.5 F 09/27/24 21:49 Pulse 69 09/28/24 06:00 Resp 16 09/28/24 06:00 BP 110/69 09/28/24 06:00 Pulse Ox 97 09/28/24 06:00 O2 Del Method Room Air 09/27/24 21:39 Weight last 48 hrs Weight 117.027 kg Data NPU 09/27/24 17:20 09/27/24 17:20 A&P Assessment and plan 1. Bipolar disorder with depression: 2. Depression with suicidal ideation: 3. Chronic schizophrenia: 4. Suicide attempt: 5. Alcohol dependence, in remission: 6. Antisocial personality disorder: 7. Suicidal ideation: 8. Amphetamine abuse: Plan: This is a 53-year-old white male with a long history of multiple inpatient hospitalizations often with previous concerns for malingering which have been greatly reduced in recent years who presents today reporting that he has not been taking his medication and that he has had a increase in symptoms including thoughts of self-harm and homicidal thoughts with people being very annoying to him. 1. Plan to restart Abilify and hopefully get Abilify Asimtufii injection. 2. Continue to-15 minute checks, 3.? Encourage individual, group and milieu therapy. 4.? Encourage sober living treatment after discharge at the highest level of care to which he is willing to commit.? 5. Obtain collateral information. 6. Monitor against the backdrop of 96-hour hold. PDMP PDMP Reviewed: Not Reviewed Involuntary Hold Information Hold Status: Legal Status: 96 Hour Hold Date/Time Hold Expires: 10/01/24 @1725 96 Hour Hold: 96 Hour Involuntary Admission: Yes Other Hold: Hold End Date: 01/02/24 Attestations NPU Medical Necessity Statement*: Inpatient hospitalization is medically necessary and the clinically appropriate intervention?at this time.? We will monitor/initiate medications and make changes as indicated.? The patient?s likely length of stay 3-5 days. Coding Level of Care Code Acute Code for Chg Fwd Diagnoses Bipolar disorder with depression F31.9 Depression with suicidal ideation F32.A; R45.851 Chronic schizophrenia F20.9 Suicide attempt T14.91XA Alcohol dependence, in remission F10.21 Antisocial personality disorder F60.2 Suicidal ideation R45.851 Amphetamine abuse F15.10
[2024-09-28 08:17] VITALS: BP 112/71; PULSE 73; RESP 16; TEMP 36.9; O2SAT 98
[2024-09-28 14:00] VITALS: BP 146/74; PULSE 78; RESP 16; TEMP 37; O2SAT 98
[2024-09-28 19:52] VITALS: BP 128/82; PULSE 74; RESP 16; O2SAT 95
[2024-09-28] MEDS: alum-mag-hydroxide-sime 30 mL UDC PO (22:05)
[2024-09-29 06:00] VITALS: RESP 16
[2024-09-29 14:00] VITALS: BP 128/83; PULSE 104; RESP 15; TEMP 36.7; O2SAT 98
--- NOTE | 2024-09-29 14:50 | P.NPUPN_ITS ---
Subjective NPU 2 Subjective: Patient presented today reporting things are going okay. He reports that he is open to restarting both the Abilify oral and injection. Otherwise he is appreciative of the opportunity to get restarted on his medication and denied any other concerns. Mental Status Exam 2 MSE Comments: This is an obese white male in hospital scrubs with adequate grooming and eye contact.? No abnormal movements except for mild psychomotor retardation.?He was cooperative with exam in mild distress.? Speech was normal in rate and slightly decreased in volume.? Mood described as as good as can be expected, his affect was slightly subdued. Thought process was linear. Thought content: Patient endorsed fleeting suicidal thoughts with no plan and current homicidal ideation. There were no delusions reported or but some paranoia and bizarre delusions noted, he endorsed auditory hallucinations and denied visual hallucinations. Attention and concentration were adequate and memory was mostly reliable but none were formally tested.? He is alert and oriented x to person and place.? Insight was poor and judgment is impaired. Impulse control is poor. Vitals/I&O/Wt Last Vital Signs Temp 98.6 F 09/28/24 14:00 Pulse 74 09/28/24 19:52 Resp 16 09/29/24 06:00 BP 128/82 09/28/24 19:52 Pulse Ox 95 09/28/24 19:52 O2 Del Method Room Air 09/28/24 14:00 Weight last 48 hrs Weight 117.027 kg Data NPU 09/27/24 17:20 09/27/24 17:20 A&P Assessment and plan 1. Bipolar disorder with depression: 2. Depression with suicidal ideation: 3. Chronic schizophrenia: 4. Suicide attempt: 5. Alcohol dependence, in remission: 6. Antisocial personality disorder: 7. Suicidal ideation: 8. Amphetamine abuse: Plan: This is a 53-year-old white male with a long history of multiple inpatient hospitalizations often with previous concerns for malingering which have been greatly reduced in recent years who presents today reporting that he has not been taking his medication and that he has had a increase in symptoms including thoughts of self-harm and homicidal thoughts with people being very annoying to him. 1. Plan to restart Abilify and hopefully get Abilify Asimtufii injection. Start Abilify 15 mg p.o. daily. 2. Continue to-15 minute checks, 3.? Encourage individual, group and milieu therapy. 4.? Encourage sober living treatment after discharge at the highest level of care to which he is willing to commit.? 5. Obtain collateral information. 6. Monitor against the backdrop of 96-hour hold. PDMP PDMP Reviewed: Not Reviewed Involuntary Hold Information 2 Hold Status: Legal Status: 96 Hour Hold Date/Time Hold Expires: 10/01/24 @1725 96 Hour Hold: 96 Hour Involuntary Admission: Yes Other Hold: Hold End Date: 01/02/24 Attestations NPU 2 Medical Necessity Statement*: Inpatient hospitalization is medically necessary and the clinically appropriate intervention?at this time.? We will monitor/initiate medications and make changes as indicated.? The patient?s likely length of stay 3-5 days. Coding Level of Care Code Acute Code for g Fwd Diagnoses Bipolar disorder with depression F31.9 Depression with suicidal ideation F32.A; R45.851 Chronic schizophrenia F20.9 Suicide attempt T14.91XA Alcohol dependence, in remission F10.21 Antisocial personality disorder F60.2 Suicidal ideation R45.851 Amphetamine abuse F15.10
[2024-09-29 19:53] VITALS: BP 133/87; PULSE 79; RESP 16; TEMP 37; O2SAT 97
[2024-09-30 06:00] VITALS: BP 138/76; PULSE 72; RESP 18; O2SAT 97
[2024-09-30] MEDS: ARIPiprazole Maintena 400 MG IM (09:18)
[2024-09-30 14:00] VITALS: BP 133/82; PULSE 74; RESP 16; TEMP 37; O2SAT 97
--- NOTE | 2024-09-30 19:49 | P.NPUPN_ITS ---
Subjective NPU 2 Subjective: Patient presented today reporting things are going okay. He denied any issues except for adjusting to having the medications restarted. Otherwise he reports that he is optimistic about finding a place to go and denied any additional side effects. Mental Status Exam 2 MSE Comments: This is an obese white male in hospital scrubs with adequate grooming and eye contact.? No abnormal movements except for mild psychomotor retardation.?He was cooperative with exam in mild distress.? Speech was normal in rate and slightly decreased in volume.? Mood described as as good as can be expected, his affect was slightly subdued. Thought process was linear. Thought content: Patient endorsed fleeting suicidal thoughts with no plan and current homicidal ideation. There were no delusions reported or but some paranoia and bizarre delusions noted, he endorsed auditory hallucinations and denied visual hallucinations. Attention and concentration were adequate and memory was mostly reliable but none were formally tested.? He is alert and oriented x to person and place.? Insight was poor and judgment is impaired. Impulse control is poor. Vitals/I&O/Wt Last Vital Signs Temp 98.6 F 09/30/24 14:00 Pulse 74 09/30/24 14:00 Resp 16 09/30/24 14:00 BP 133/82 09/30/24 14:00 Pulse Ox 97 09/30/24 14:00 O2 Del Method Room Air 09/30/24 14:00 Data NPU 09/27/24 17:20 09/27/24 17:20 A&P Assessment and plan 1. Bipolar disorder with depression: 2. Depression with suicidal ideation: 3. Chronic schizophrenia: 4. Suicide attempt: 5. Alcohol dependence, in remission: 6. Antisocial personality disorder: 7. Suicidal ideation: 8. Amphetamine abuse: Plan: This is a 53-year-old white male with a long history of multiple inpatient hospitalizations often with previous concerns for malingering which have been greatly reduced in recent years who presents today reporting that he has not been taking his medication and that he has had a increase in symptoms including thoughts of self-harm and homicidal thoughts with people being very annoying to him. 1. Plan to restart Abilify and hopefully get Abilify Asimtufii injection. Started Abilify 15 mg p.o. daily. Received Abilify Maintena injection 400 mg q. 28 days. 2. Continue to-15 minute checks, 3.? Encourage individual, group and milieu therapy. 4.? Encourage sober living treatment after discharge at the highest level of care to which he is willing to commit.? 5. Obtain collateral information. 6. Monitor against the backdrop of 96-hour hold. PDMP PDMP Reviewed: Not Reviewed Involuntary Hold Information 2 Hold Status: Legal Status: 96 Hour Hold Date/Time Hold Expires: 10/01/24 @1725 96 Hour Hold: 96 Hour Involuntary Admission: Yes Other Hold: Hold End Date: 01/02/24 Attestations NPU 2 Medical Necessity Statement*: Inpatient hospitalization is medically necessary and the clinically appropriate intervention?at this time.? We will monitor/initiate medications and make changes as indicated.? The patient?s likely length of stay 2-4 days. Coding Level of Care Code Acute Code for g Fwd Diagnoses Bipolar disorder with depression F31.9 Depression with suicidal ideation F32.A; R45.851 Chronic schizophrenia F20.9 Suicide attempt T14.91XA Alcohol dependence, in remission F10.21 Antisocial personality disorder F60.2 Suicidal ideation R45.851 Amphetamine abuse F15.10
[2024-09-30 20:44] VITALS: BP 146/81; PULSE 91; RESP 18; O2SAT 98
--- NOTE | 2024-10-01 06:18 | PC.NURSE ---
vs not completed per nurse resp 16
[2024-10-01 14:00] VITALS: BP 129/88; PULSE 92; RESP 17; TEMP 36.8; O2SAT 96
--- NOTE | 2024-10-01 16:39 | P.NPUPN_ITS ---
Subjective NPU 2 Subjective: Patient presented today reporting that he was tolerating his medication being resumed. He had been sleeping more which he reports is the product of being safe, being bored and having the medications back. We discussed the likelihood of discharge at the beginning of the week and he denied any side effects to the medication. Mental Status Exam 2 MSE Comments: This is an obese white male in hospital scrubs with adequate grooming and eye contact.? No abnormal movements except for mild psychomotor retardation.?He was cooperative with exam in mild distress.? Speech was normal in rate and slightly decreased in volume.? Mood described as as good as can be expected, his affect was slightly subdued. Thought process was linear. Thought content: Patient endorsed fleeting suicidal thoughts with no plan and current homicidal ideation. There were no delusions reported or but some paranoia and bizarre delusions noted, he endorsed auditory hallucinations and denied visual hallucinations. Attention and concentration were adequate and memory was mostly reliable but none were formally tested.? He is alert and oriented x to person and place.? Insight was poor and judgment is impaired. Impulse control is poor. Vitals/I&O/Wt Last Vital Signs Temp 98.3 F 10/01/24 14:00 Pulse 92 10/01/24 14:00 Resp 17 10/01/24 14:00 BP 129/88 10/01/24 14:00 Pulse Ox 96 10/01/24 14:00 O2 Del Method Room Air 10/01/24 14:00 Data NPU 09/27/24 17:20 09/27/24 17:20 A&P Assessment and plan 1. Bipolar disorder with depression: 2. Depression with suicidal ideation: 3. Chronic schizophrenia: 4. Suicide attempt: 5. Alcohol dependence, in remission: 6. Antisocial personality disorder: 7. Suicidal ideation: 8. Amphetamine abuse: Plan: This is a 53-year-old white male with a long history of multiple inpatient hospitalizations often with previous concerns for malingering which have been greatly reduced in recent years who presents today reporting that he has not been taking his medication and that he has had a increase in symptoms including thoughts of self-harm and homicidal thoughts with people being very annoying to him. 1. Plan to restart Abilify and hopefully get Abilify Asimtufii injection. Started Abilify 15 mg p.o. daily. Received Abilify Maintena injection 400 mg q. 28 days. 2. Continue to-15 minute checks, 3.? Encourage individual, group and milieu therapy. 4.? Encourage sober living treatment after discharge at the highest level of care to which he is willing to commit.? 5. Obtain collateral information. 6. Monitor against the backdrop of 96-hour hold. PDMP PDMP Reviewed: Not Reviewed Involuntary Hold Information 2 Hold Status: Legal Status: 96 Hour Hold Date/Time Hold Expires: signed in 96 Hour Hold: 96 Hour Involuntary Admission: Yes Other Hold: Hold End Date: 01/02/24 Attestations NPU 2 Medical Necessity Statement*: Inpatient hospitalization is medically necessary and the clinically appropriate intervention?at this time.? We will monitor/initiate medications and make changes as indicated.? The patient?s likely length of stay 2-4 days. Coding Level of Care Code Acute Code for g Fwd Diagnoses Bipolar disorder with depression F31.9 Depression with suicidal ideation F32.A; R45.851 Chronic schizophrenia F20.9 Suicide attempt T14.91XA Alcohol dependence, in remission F10.21 Antisocial personality disorder F60.2 Suicidal ideation R45.851 Amphetamine abuse F15.10
[2024-10-01 20:12] VITALS: BP 143/89; PULSE 77; RESP 18; TEMP 37.1; O2SAT 97
[2024-10-02 06:00] VITALS: BP 123/80; PULSE 76; RESP 18; TEMP 36.6; O2SAT 95
[2024-10-02 14:00] VITALS: BP 134/88; PULSE 99; RESP 18; TEMP 36.9; O2SAT 91
[2024-10-02 20:08] VITALS: BP 125/83; PULSE 99; RESP 18; TEMP 36.8; O2SAT 97
--- NOTE | 2024-10-02 21:26 | P.NPUPN_ITS ---
Subjective NPU 2 Subjective: He presented today reporting that he is starting to adjust to his medication and sleeping a little less. We discussed the fact that they would work with him at the beginning of the week for discharge planning. He denied any side effects to the medication. Mental Status Exam 2 MSE Comments: This is an obese white male in hospital scrubs with adequate grooming and eye contact.? No abnormal movements except for mild psychomotor retardation.?He was cooperative with exam in mild distress.? Speech was normal in rate and slightly decreased in volume.? Mood described as as good as can be expected, his affect was slightly subdued. Thought process was linear. Thought content: Patient endorsed fleeting suicidal thoughts with no plan and current homicidal ideation. There were no delusions reported or but some paranoia and bizarre delusions noted, he endorsed auditory hallucinations and denied visual hallucinations. Attention and concentration were adequate and memory was mostly reliable but none were formally tested.? He is alert and oriented x to person and place.? Insight was poor and judgment is impaired. Impulse control is poor. Vitals/I&O/Wt Last Vital Signs Temp 98.3 F 10/02/24 20:08 Pulse 99 10/02/24 20:08 Resp 18 10/02/24 20:08 BP 125/83 10/02/24 20:08 Pulse Ox 97 10/02/24 20:08 O2 Del Method Room Air 10/02/24 20:08 Data NPU 09/27/24 17:20 09/27/24 17:20 A&P Assessment and plan 1. Bipolar disorder with depression: 2. Depression with suicidal ideation: 3. Chronic schizophrenia: 4. Suicide attempt: 5. Alcohol dependence, in remission: 6. Antisocial personality disorder: 7. Suicidal ideation: 8. Amphetamine abuse: Plan: This is a 53-year-old white male with a long history of multiple inpatient hospitalizations often with previous concerns for malingering which have been greatly reduced in recent years who presents today reporting that he has not been taking his medication and that he has had a increase in symptoms including thoughts of self-harm and homicidal thoughts with people being very annoying to him. 1. Plan to restart Abilify and hopefully get Abilify Asimtufii injection. Started Abilify 15 mg p.o. daily. Received Abilify Maintena injection 400 mg q. 28 days. 2. Continue to-15 minute checks, 3.? Encourage individual, group and milieu therapy. 4.? Encourage sober living treatment after discharge at the highest level of care to which he is willing to commit.? 5. Obtain collateral information. 6. Monitor against the backdrop of 96-hour hold. PDMP PDMP Reviewed: Not Reviewed Involuntary Hold Information 2 Hold Status: Legal Status: 96 Hour Hold Date/Time Hold Expires: signed in 96 Hour Hold: 96 Hour Involuntary Admission: Yes Other Hold: Hold End Date: 01/02/24 Attestations NPU 2 Medical Necessity Statement*: Inpatient hospitalization is medically necessary and the clinically appropriate intervention?at this time.? We will monitor/initiate medications and make changes as indicated.? The patient?s likely length of stay 2-4 days. Coding Level of Care Code Acute Code for g Fwd Diagnoses Bipolar disorder with depression F31.9 Depression with suicidal ideation F32.A; R45.851 Chronic schizophrenia F20.9 Suicide attempt T14.91XA Alcohol dependence, in remission F10.21 Antisocial personality disorder F60.2 Suicidal ideation R45.851 Amphetamine abuse F15.10
[2024-10-03 06:00] VITALS: BP 123/89; PULSE 83; RESP 17; TEMP 36.4; O2SAT 97; BMI 32.8
[2024-10-03 13:27] VITALS: BP 117/71; PULSE 108; RESP 17; TEMP 36.9; O2SAT 98
== END 2024-10-03 14:03 | disposition home or self-care (01) | DRG 885 ==
LOC: ER 18:28 → NP 19:01
PROVIDERS: Admitting Provider Psychiatry & Neurology Psychiatry; Emergency Provider Family Medicine; Visit Provider Psychiatry & Neurology Psychiatry
DX: F25.0 Schizoaffective disorder, bipolar type (principal); R45.851 Suicidal ideations; Z91.51 Personal history of suicidal behavior; F10.21 Alcohol dependence, in remission; F60.2 Antisocial personality disorder; F15.10 Other stimulant abuse, uncomplicated
CPT/HCPCS: 36415; 80053; 80306; 80307; 85025; 96372; 97150; 97165; 99285; J9999; Q0162

== ENCOUNTER 2024-10-22 16:10 | Inpatient (IN) | payer OTHER, MEDICAID, SELFPAY ==
[2024-10-22 16:13] VITALS: BP 162/84; PULSE 73; RESP 16; TEMP 36.5; O2SAT 99
--- NOTE | 2024-10-22 16:26 | W.ED.PSYCHS ---
HPI - Psych General: Chief Complaint: Psychiatric Symptoms Stated Complaint: SI Time Seen by Provider: 10/22/24 16:11 Source: patient Mode of arrival: ambulatory Limitations: no limitations History of Present Illness: 54-year-old male is here with suicidal ideation he states over the last 3 days he has had thoughts of hanging himself citing worsening depression. He denies any worsening proving factors has had multiple admissions in the past. Associated symptoms: Reports depression and suicidal ideation Related Data Previous Rx's ?Medication ?Instructions ?Recorded aripiprazole 400 mg intramuscular 400 mg IM Q28D 28 days #1 ea 10/03/24 suspension,extended release (Abilify Maintena) pantoprazole 40 mg tablet,delayed 40 mg PO BID 30 days #60 tabs 10/03/24 release quetiapine 100 mg tablet 100 mg PO BEDTIME 30 days #30 tabs 10/03/24 Allergies Allergy/AdvReac Type Severity Reaction Status Date / Time Penicillins Allergy ALGY-Hives Verified 09/24/23 16:24 Review of Systems Const: Denies: fever(s), chills, body aches or change in appetite ENMT: Denies: throat pain or dental pain Card: Denies: chest pain Resp: Denies: dyspnea GI: Denies: abdominal pain, nausea, vomiting or diarrhea Musc: Denies: neck pain or back pain Skin/Breast: Denies: rash Neuro: Denies: headache(s) Psych: Reports: depression and suicidal ideation [facility] ED PFSH: Medical History Amphetamine abuse Bipolar disorder with depression Chronic alcohol abuse Alcohol dependence, in remission Bipolar 2 disorder Drug-induced psychotic disorder Malingering Antisocial personality disorder Social History Smoking and tobacco/nicotine status: current every day tobacco/nicotine user Physical Exam Const: COMMON NORMALS: no acute distress, patient oriented x3 and healthy appearing HENMT: COMMON NORMALS: normocephalic and atraumatic HEAD & SCALP: normocephalic and atraumatic Eye: COMMON NORMALS: conjunctivae normal CONJUNCTIVA: Yes conjunctivae normal Neck/C-Spine: COMMON NORMALS: full ROM and supple Chest: COMMONS NORMALS: normal inspection of the chest Resp: COMMON NORMALS: normal respiratory effort Cardio: COMMON NORMALS: regular rate RATE: regular rate Extremity: COMMON NORMALS: normal to inspection and full ROM Neuro: COMMON NORMALS: patient oriented x3, moves all extremities and no focal motor deficits Psych: COMMON NORMALS: mental status grossly normal, Normal thought process present and cooperative THOUGHT PROCESS: Normal thought process present Skin: COMMON NORMALS: no rashes or lesions noted and no wounds GENERAL SKIN EXAM: no rashes or lesions noted Course Vital Signs: Vital signs: Vital Signs Temperature 97.7 F 10/22/24 16:13 Pulse Rate 73 10/22/24 16:13 Respiratory Rate 16 10/22/24 16:13 Blood Pressure 162/84 10/22/24 16:13 Pulse Oximetry 99 10/22/24 16:13 Oxygen Delivery Me thod Room Air 10/22/24 16:13 MDM - Psych Medical Decision Making Patient presents for suicidal ideation he is placed on a 96-hour hold he is medically cleared spoke to psychiatrist will admit. Medical Records I reviewed the patient's medical records. Lab Data I reviewed the patient's lab results. 10/22/24 16:53 10/22/24 16:53 Laboratory Results WBC 9.75 10^3/uL (3.29-11.43) 10/22/24 16:53 RBC 4.82 10^6/uL (3.85-5.65) 10/22/24 16:53 Hgb 15.60 g/dL (11.27-16.99) 10/22/24 16:53 Hct 46.3 % (37-53) 10/22/24 16:53 MCV 96.1 fl (82-101) 10/22/24 16:53 MCH 32.4 pg (27-33) 10/22/24 16:53 MCHC 33.7 g/dL (30-55) 10/22/24 16:53 RDW 13.2 % (12.1-15.1) 10/22/24 16:53 Plt Count 187 10^3/cmm (157-399) 10/22/24 16:53 MPV 9.9 fL (7.4-10.4) 10/22/24 16:53 Neut % (Auto) 62.2 % 10/22/24 16:53 Lymph % (Auto) 22.3 % 10/22/24 16:53 [place] % (Auto) 10.7 % 10/22/24 16:53 Eos % (Auto) 3.3 % 10/22/24 16:53 Baso % (Auto) 0.8 % 10/22/24 16:53 Neut # (Auto) 6.07 10^3/uL (1.8-7.7) 10/22/24 16:53 Lymph # (Auto) 2.2 10^3/uL (0.8-4.8) 10/22/24 16:53 [place] # (Auto) 1.0 10^3/uL (0.2-0.9) H 10/22/24 16:53 Eos # (Auto) 0.3 10^3/uL (0.0-0.8) 10/22/24 16:53 Baso # (Auto) 0.1 10^3/uL (0.0-0.1) 10/22/24 16:53 Nucleated RBC % (auto) 0 % 10/22/24 16:53 Nucleated RBCs # 0.0 /100WBC 10/22/24 16:53 Sodium 142 mmol/L (136-145) 10/22/24 16:53 Potassium 3.8 mmol/L (3.5-5.1) 10/22/24 16:53 Chloride 105 mmol/L (98-107) 10/22/24 16:53 Carbon Dioxide 25 mmol/L (22-29) 10/22/24 16:53 Anion Gap 15.8 (5-19) 10/22/24 16:53 BUN 12 mg/dL (6-20) 10/22/24 16:53 Creatinine 0.8 mg/dL (0.7-1.2) 10/22/24 16:53 GFR Calculation 100.4 mL/min (90-130) 10/22/24 16:53 Glucose 91 mg/dL (65-115) 10/22/24 16:53 Calculated Osmolality 293 mOsm/kg (285-295) 10/22/24 16:53 Calcium 9.2 mg/dL (8.5-10.5) 10/22/24 16:53 Total Bilirubin 0.4 mg/dL (0.15-1.2) 10/22/24 16:53 AST 26 U/L (0-40) 10/22/24 16:53 ALT 28 U/L (0-41) 10/22/24 16:53 Alkaline Phosphatase 69 U/L (40-130) 10/22/24 16:53 Total Protein 7.3 g/dL (6.6-8.7) 10/22/24 16:53 Albumin 4.4 g/dL (3.5-5.2) 10/22/24 16:53 Globulin 2.9 g/dL (1.3-4.6) 10/22/24 16:53 Salicylates < 0.3 mg/dL (3-10) L 10/22/24 16:53 Urine Opiates Screen Negative ng/mL (Negative) 10/22/24 16:30 Acetaminophen < 5.0 ug/mL (10-30) L 10/22/24 16:53 Ur Barbiturates Screen Negative ng/mL (Negative) 10/22/24 16:30 Ur Phencyclidine Scrn Negative ng/mL (Negative) 10/22/24 16:30 Ur Amphetamines Screen Negative ng/mL (Negative) 10/22/24 16:30 U Benzodiazepines Scrn Negative ng/mL (Negative) 10/22/24 16:30 Urine Cocaine Screen Negative ng/mL (Negative) 10/22/24 16:30 U Marijuana (THC) Screen Negative ng/mL (Negative) 10/22/24 16:30 Ethyl Alcohol < 10 mg/dL (0-10) 10/22/24 16:53 No radiology studies performed this visit Discharge Plan Discharge Patient Disposition: Admitted As Inpatient Clinical Impression: Suicidal ideation Condition: Stable Coding Level of Care Code ED Commission Specialist for Wilder Long
[2024-10-22 16:54] LABS: PCP Screen Urine Negative (Negative)
[2024-10-22 16:58] LABS: Hematocrit 46.3 % (37-53); Hemoglobin 15.60 g/dL (11.27-16.99); Mean Corpuscular HGB Conc 33.7 g/dL (30-55); Mean Corpuscular Hemoglobin 32.4 pg (27-33); Mean Corpuscular Volume 96.1 fl (82-101); Nucleated Red Blood Cells % 0 %; Platelet Count 187 10^3/cmm (157-399); Red Blood Count 4.82 10^6/uL (3.85-5.65); White Blood Count 9.75 10^3/uL (3.29-11.43)
[2024-10-22] MEDS: haloperidol inj 5 mg/mL INJ 1 mL IM (17:04)
[2024-10-22] MEDS: LORazepam 1 MG/0.5 ML injection 2 MG IM (17:06)
[2024-10-22 17:16] LABS: Acetaminophen < 5.0 ug/mL (10-30); Alanine Aminotransferase 28 U/L (0-41); Albumin Level 4.4 g/dL (3.5-5.2); Alcohol Level < 10 mg/dL (0-10); Alkaline Phosphatase 69 U/L (40-130); Anion Gap 15.8 (5-19); Aspartate Amino Transferase 26 U/L (0-40); Blood Urea Nitrogen 12 mg/dL (6-20); Calcium 9.2 mg/dL (8.5-10.5); Carbon Dioxide 25 mmol/L (22-29); Chloride 105 mmol/L (98-107); Creatinine Clr Calc Pharmacy 132.4318; Globulin 2.9 g/dL (1.3-4.6); Glucose 91 mg/dL (65-115); Osmolality Calculated 293 mOsm/kg (285-295); Potassium 3.8 mmol/L (3.5-5.1); Salicylate < 0.3 mg/dL (3-10); Sodium 142 mmol/L (136-145); Total Protein 7.3 g/dL (6.6-8.7)
--- NOTE | 2024-10-22 18:20 | PC.NURSE ---
Pt was read his 96 hour hold rights with security present. pt denies the need for anything at this time.
[2024-10-22 18:33] VITALS: BP 106/62; PULSE 79; O2SAT 98
[2024-10-22 19:48] VITALS: BP 124/85; PULSE 78; RESP 18; O2SAT 98
[2024-10-22 20:18] VITALS: BP 124/85; PULSE 78; RESP 18; O2SAT 98
[2024-10-23 06:00] VITALS: BP 125/88; PULSE 86; RESP 19; TEMP 36.7; O2SAT 99
--- NOTE | 2024-10-23 08:51 | W.PM.NPUH&PS ---
Providers/Chief Complaint Admitting Physician: Sam Bond MD Chief Complaint: SI HPI NPU History of Present Illness Emil Castro is a 54 year old male who presented to the emergency department with the following report: Chief Complaint: Psychiatric Symptoms Stated Complaint: SI Time Seen by Provider: 10/22/24 16:11 Source: patient Mode of arrival: ambulatory Limitations: no limitations History of Present Illness: 54-year-old male is here with suicidal ideation he states over the last 3 days he has had thoughts of hanging himself citing worsening depression. He denies any worsening proving factors has had multiple admissions in the past. Associated symptoms: Reports depression and suicidal ideation He was admitted to the neuropsychiatric unit for definitive treatment of those issues. He is known to [facility] psychiatry through inpatient and outpatient services. He was just discharged on 10/03/2024 and an excerpt of that discharge summary is included below for context and the fact that there have been no substantive changes. He presents potentially homeless though he does have a camper reportedly. He has no air conditioning in a camper and is very limited if his ability to manage challenging situations and it is likely that the extreme weather is playing a role in his presentation as he reports suicidal and homicidal ideation that has built over the past few days. We discussed that he is a person that is at risk for acting on impulses given his known history. When he was here and September we did get the long-acting injectable of the Abilify. However he had not really taken the oral to augment getting into steady state. He denies any problems with the medication and endorses a need to get into a 30-day program. His last admission in September he was positive for amphetamines but this presentation his UDS was negative. We discussed working with the social work team on Friday to see what kind of resources might be at his disposal. Per his 10/03/2024 [facility] inpatient psychiatric discharge summary: Diagnoses at Discharge Discharge Diagnosis 1. Bipolar disorder with depression: 2. Depression with suicidal ideation: 3. Chronic schizophrenia: 4. Suicide attempt: 5. Alcohol dependence, in remission: 6. Antisocial personality disorder: 7. Suicidal ideation: 8. Amphetamine abuse: Reason for Visit Reason for Visit: SI Brief History: HPI NPU History of Present Illness Emil Castro is a 54 year old male who presented to the emergency department with the following report: Chief Complaint: Psychiatric Symptoms Stated Complaint: SI Time Seen by Provider: 09/27/24 16:57 History of Present Illness: 54-year-old male presents to the emergency room admitting to have been drinking today as well as having used methamphetamines. Having paranoid delusions. He is also having some homicidal and suicidal ideation he has a specific person he is wanting to kill. He is very angry at him but cannot voice to me why. He is also having suicidal thoughts with a plan with attending either to sit outside and of dehydration or walk out into traffic. He admits to having done methamphetamine about 8 to 10 hours ago. He has a history of alcohol use has had multiple previous admissions to our facility for this as well as being transferred once to his age. He is agreeable and redirectable has not had any aggressive behaviors here. He was admitted to the neuropsychiatric unit for definitive treatment of those issues. He is known to [facility] psychiatry through inpatient and outpatient services. His last inpatient stay was in December of last year. An excerpt from that discharge summary is included below for context and the fact that there have been limited substantive changes. He was on Abilify at that time but reports that he has not been taking it and would like to restart that medication. He had no real clear indication of why the medication was stopped but that he acknowledges him being unwell off of the medication. We discussed the risks, benefits and alternatives of restarting Abilify and he understood and agreed to proceed as is documented in this note. He identified having some significant homicidal thoughts and that he had been homeless again and having the struggles that come with that. Per his 01/05/2024 [facility] inpatient psychiatric discharge summary: Discharge Diagnosis (1) Bipolar disorder with depression: Status: Inactive (2) Depression with suicidal ideation: Status: Resolved (3) Chronic schizophrenia: Status: Acute (4) Suicide attempt: Status: Resolved (5) Alcohol dependence, in remission: Status: Acute (6) Antisocial personality disorder: Status: Inactive (7) Suicidal ideation: Status: Resolved (8) Amphetamine abuse: Status: Acute Reason for Visit Reason for Visit: SI Brief History: History of Present Illness Emil Castro is a 53 year old male who presented to the emergency department with the following report: Chief Complaint: Psychiatric Symptoms Stated Complaint: SI Time Seen by Provider: 12/27/23 14:39 History of Present Illness: 54-year-old man who presents to the emergency room with suicidal thoughts. He says he recently just got out of detention. He says he had no place to go and he is no longer on his depression medications. He has a plan to either take pills or hang himself. He was admitted to the neuropsychiatric unit for definitive treatment of those issues. He is known to [facility] psychiatric services through mostly inpatient services but occasional outpatient services and has been in care home recently for 50 some days. An excerpt of his last inpatient hospitalization discharge summary is included below for context and the fact that there have been no substantive changes. He presents today reporting that while in care home his medications got off track. He reports they discharged him without a clear follow-up and without the resources to get his medications restarted as they were prior. He presented hoping that his medication could be restarted and he get back on track. We discussed the risks, benefits and alternatives of us initiating medication as we had during his last hospitalization and he understood and agreed to proceed as is documented in this note. Per his 09/02/2023 [facility] inpatient psychiatric discharge summary: Discharge Diagnosis (1) Bipolar disorder with depression: Status: Inactive (2) Depression with suicidal ideation: Status: Resolved (3) Chronic schizophrenia: Status: Acute (4) Suicide attempt: Status: Resolved (5) Alcohol dependence, in remission: Status: Acute (6) Antisocial personality disorder: Status: Inactive (7) Suicidal ideation: Status: Resolved (8) Amphetamine abuse: Status: Acute Reason for Visit Reason for Visit: HI, SI Brief History: History of Present Illness Emil Castro is a 53 year old male who presented to the emergency department with the following report: Chief Complaint: Psychiatric Symptoms Stated Complaint: HI, SI Time Seen by Provider: 08/30/23 17:10 Source: patient Mode of arrival: ambulatory Limitations: no limitations History of Present Illness: Patient is a 53-year-old male with extensive psychiatric history who presents to the emergency department complaining of suicidal ideations, homicidal ideations, and auditory hallucinations today. Patient recently was discharged from the NPU at the end of July, and states that other than receiving an injection he has not taken any medications. Initially he states he was doing okay though today was started to hear birds talk to him and had the overwhelming urge to shoot himself in the head. He also states that he has been having increased anger issues where he feels like he could shoot someone else in the head. He denies any illicit drug use other than smoking marijuana recently. He does have extensive past medical history of alcohol abuse. He denies drinking recently. When I ask him where he lives, he states that he has just been camping out lately. He does report a history of attempting suicide in the past, where he hung a rope over a tree and put his neck through it though did not go any further than this. He is not reporting any visual hallucinations or tactile hallucinations. No medical symptoms reported at this time. He requests to come into the psychiatric unit to be seen at this time. MD complaint: other (SI/HI/auditory hallucinations) Onset (ago): hour(s) Duration: constant History of same: Yes Relieving factors: none Exacerbating factors: none Associated symptoms: Reports auditory hallucinations, homicidal ideation and suicidal ideation; Deny visual hallucinations If self harm: admits thoughts of self harm and has plan. He was admitted to the neuropsychiatric unit for definitive treatment of those issues. He is known quite well through inpatient and some outpatient services. He has a long history of high utilization of services back when he was having more addiction issues and there were concerns often for malingering but in recent years his psychosis has become more prevalent and concern for malingering and antisocial personality disorder have greatly reduced. He was last seen in July 2023 and an excerpt of discharge summary is included below for context and that there have been limited substantive changes and he can be at times a poor historian. He presents reporting when he left he went back to his common behavior of [place]. He said that things were going fairly well until the last couple of weeks when he was having auditory hallucinations feeling like birds were communicating with him and just feeling like the medication was not working. We discussed the fact that he had been on the Abilify Maintena which should have been renewed about 9 days ago. We discussed the risks, benefits and alternatives of resuming the long-acting injectable and specifically switching him to Abilify Asimtufii to give him an additional 30 days before medication issues might manifest. Otherwise he reports that he is looking forward to working with the social work team for any assistance they have for his psychosocial challenges. Hospital Course He slowly acclimated to the individual, group and milieu therapies provided. He presented with significant active addiction and a UDS positive for amphetamines. He had a significant history of addiction and had been struggling with access to his medication. He was struggling with psychosis, depression and had been off his medications. We restarted his medication including Abilify Maintena. Abstinence from drugs of abuse while in the hospital, access to as needed medications and restarting home medications as well as being in the milieu led to a positive response. He was resistant to the idea of any intensive sober living treatment. He worked with the treatment team for appropriate outpatient follow-up. He had significant improvement during the hospitalization and and he was able to contract for safety outside of the hospital prior to discharge. During the hospitalization, patient had routine laboratory studies which were within normal limits except for few outliers. Additionally there was a general medical evaluation which was also within normal limits and revealed no new acute processes. Discharge Summary: At the time of discharge, psychosis and lethality were denied and psychosis was resolving/improving. Mood and anxiety were well managed. Patient endorsed a plan to follow-up with the aftercare recommendations of the treatment team. Patient was evaluated and deemed to be absent credible lethality, and had achieved the maximum benefit from an inpatient hospitalization, so was discharged. Meds NPU Home Medications ?Medication ?Instructions ?Recorded ?Confirmed ?Last Taken ?Type No Known Home Medications 10/22/24 10/22/24 Unknown History Allergies Allergy/AdvReac Type Severity Reaction Status Date / Time Penicillins Allergy ALGY-Hives Verified 09/24/23 16:24 [facility] NPU [facility]: Medical History (Updated 10/22/24 @ 18:15 by Nanda Aguilera MD) Amphetamine abuse Bipolar disorder with depression Chronic alcohol abuse Alcohol dependence, in remission Bipolar 2 disorder Drug-induced psychotic disorder Malingering Antisocial personality disorder Social History Smoking and tobacco/nicotine status: current every day tobacco/nicotine user Mental Status Exam MSE Comments: This is an obese white male in hospital scrubs with adequate grooming and eye contact.? No abnormal movements except for mild psychomotor retardation.?He was cooperative with exam in mild to moderate distress.? Speech was normal in rate and slightly decreased in volume.? Mood described as crappy, his affect was slightly subdued. Thought process was linear. Thought content: Patient endorsed fleeting suicidal and homicidal ideation. There were no delusions reported or but some paranoia and bizarre delusions noted, he endorsed auditory hallucinations and denied visual hallucinations. Attention and concentration were adequate and memory was mostly reliable but none were formally tested.? He is alert and oriented x to person and place.? Insight was poor and judgment is impaired. Impulse control is poor. Vitals/I&O/Wt Last Vital Signs Temp 98.1 F 10/23/24 06:00 Pulse 86 10/23/24 06:00 Resp 19 H 10/23/24 06:00 BP 125/88 10/23/24 06:00 Pulse Ox 99 10/23/24 06:00 O2 Del Method Room Air 10/23/24 06:00 Weight last 48 hrs Weight 117.537 kg Weight 107.955 kg Data NPU 10/22/24 16:53 10/22/24 16:53 A&P Assessment and plan 1. Bipolar disorder with depression: 2. Depression with suicidal ideation: 3. Chronic schizophrenia: 4. Suicide attempt: 5. Alcohol dependence, in remission: 6. Antisocial personality disorder: 7. Suicidal ideation: 8. Amphetamine abuse: Plan: This is a 53-year-old white male with a long history of multiple inpatient hospitalizations often with previous concerns for malingering which have been greatly reduced in recent years who presents today reporting that he has not been taking his medication and that he has had a increase in symptoms including thoughts of self-harm and homicidal thoughts with people being very annoying to him. 1. Continue current medication. 2. Continue to-15 minute checks, 3.? Encourage individual, group and milieu therapy. 4.? Encourage sober living treatment after discharge at the highest level of care to which he is willing to commit.? 5. Obtain collateral information. 6. Monitor against the backdrop of 96-hour hold. PDMP PDMP Reviewed: Not Reviewed Involuntary Hold Information Hold Status: Legal Status: 96 Hour Hold Date/Time Hold Expires: 10/28/24@17:50 96 Hour Hold: 96 Hour Involuntary Admission: Yes Other Hold: Hold End Date: 01/02/24 Attestations NPU Medical Necessity Statement*: Inpatient hospitalization is medically necessary and the clinically appropriate intervention?at this time.? We will monitor/initiate medications and make changes as indicated.? The patient?s likely length of stay 3-5 days. Coding Level of Care Code Acute Code for [facility] Fwd Diagnoses Bipolar disorder with depression F31.9 Depression with suicidal ideation F32.A; R45.851 Chronic schizophrenia F20.9 Suicide attempt T14.91XA Alcohol dependence, in remission F10.21 Antisocial personality disorder F60.2 Suicidal ideation R45.851 Amphetamine abuse F15.10
[2024-10-23 13:52] VITALS: BP 128/84; PULSE 75; RESP 17; TEMP 36.5; O2SAT 99
[2024-10-23 20:07] VITALS: BP 133/79; PULSE 74; RESP 19; TEMP 37; O2SAT 98
[2024-10-24 05:56] VITALS: BMI 35.1
[2024-10-24 06:00] VITALS: BP 136/85; PULSE 95; RESP 18; TEMP 37; O2SAT 98
[2024-10-24 14:00] VITALS: BP 117/77; PULSE 83; RESP 18; TEMP 36.7; O2SAT 99
--- NOTE | 2024-10-24 14:29 | P.NPUPN_ITS ---
Subjective NPU 2 Subjective: Patient presented today reporting that he is doing okay. He reports he has not slept as well as he would like and we identified that he was not taking the Seroquel that he has been. We discussed the risks, benefits and alternatives of resuming the Seroquel 100 mg p.o. nightly he understood and agreed to proceed as documented in this note. We agreed he would begin working with the social work team tomorrow for possible sober living treatment. Mental Status Exam 2 MSE Comments: This is an obese white male in hospital scrubs with adequate grooming and eye contact.? No abnormal movements except for mild psychomotor retardation.?He was cooperative with exam in mild to moderate distress.? Speech was normal in rate and slightly decreased in volume.? Mood described as crappy, his affect was slightly subdued. Thought process was linear. Thought content: Patient endorsed fleeting suicidal and homicidal ideation. There were no delusions reported or but some paranoia and bizarre delusions noted, he endorsed auditory hallucinations and denied visual hallucinations. Attention and concentration were adequate and memory was mostly reliable but none were formally tested.? He is alert and oriented x to person and place.? Insight was poor and judgment is impaired. Impulse control is poor. Vitals/I&O/Wt Last Vital Signs Temp 98.1 F 10/24/24 14:00 Pulse 83 10/24/24 14:00 Resp 18 10/24/24 14:00 BP 117/77 10/24/24 14:00 Pulse Ox 99 10/24/24 14:00 O2 Del Method Room Air 10/24/24 14:00 Weight last 48 hrs Weight 117.537 kg Weight 107.955 kg Data NPU 10/22/24 16:53 10/22/24 16:53 A&P Assessment and plan 1. Bipolar disorder with depression: 2. Depression with suicidal ideation: 3. Chronic schizophrenia: 4. Suicide attempt: 5. Alcohol dependence, in remission: 6. Antisocial personality disorder: 7. Suicidal ideation: 8. Amphetamine abuse: Plan: This is a 53-year-old white male with a long history of multiple inpatient hospitalizations often with previous concerns for malingering which have been greatly reduced in recent years who presents today reporting that he has not been taking his medication and that he has had a increase in symptoms including thoughts of self-harm and homicidal thoughts with people being very annoying to him. 1. Continue current medication. 2. Continue to-15 minute checks, 3.? Encourage individual, group and milieu therapy. 4.? Encourage sober living treatment after discharge at the highest level of care to which he is willing to commit.? 5. Obtain collateral information. 6. Monitor against the backdrop of 96-hour hold. PDMP PDMP Reviewed: Not Reviewed Involuntary Hold Information 2 Hold Status: Legal Status: 96 Hour Hold Date/Time Hold Expires: 0 10/28/24@17:50 96 Hour Hold: 96 Hour Involuntary Admission: Yes Other Hold: Hold End Date: 01/02/24 Attestations NPU 2 Medical Necessity Statement*: Inpatient hospitalization is medically necessary and the clinically appropriate intervention?at this time.? We will monitor/initiate medications and make changes as indicated.? The patient?s likely length of stay 3-5 days. Coding Level of Care Code Acute Code for [facility] Fwd Diagnoses Bipolar disorder with depression F31.9 Depression with suicidal ideation F32.A; R45.851 Chronic schizophrenia F20.9 Suicide attempt T14.91XA Alcohol dependence, in remission F10.21 Antisocial personality disorder F60.2 Suicidal ideation R45.851 Amphetamine abuse F15.10
[2024-10-24 19:45] VITALS: BP 120/87; PULSE 97; RESP 17; TEMP 37.1; O2SAT 98
[2024-10-25 06:00] VITALS: BP 144/84; PULSE 96; RESP 18; TEMP 37.1; O2SAT 98
--- NOTE | 2024-10-25 13:06 | P.NPUPN_ITS ---
Subjective NPU 2 Subjective: Patient presented today reporting that he is doing okay. He endorses working with the social work team on finding possible sober living programs in the community. He reports he is tolerating his medication fine and denies any issues or side effects. He is less isolative and more engaging on the milieu per staff reports on direct observation. Mental Status Exam 2 MSE Comments: This is an obese white male in hospital scrubs with adequate grooming and eye contact.? No abnormal movements except for mild psychomotor retardation.?He was cooperative with exam in mild distress.? Speech was normal in rate and slightly decreased in volume.? Mood described as a little better, his affect was slightly subdued, but brighter. Thought process was linear. Thought content: Patient denying suicidal and homicidal ideation. There were no delusions reported or currently noted, he denied auditory hallucinations and denied visual hallucinations. Attention and concentration were adequate and memory was mostly reliable but none were formally tested.? He is alert and oriented x to person and place.? Insight was poor and judgment is impaired. Impulse control is poor. Vitals/I&O/Wt Last Vital Signs Temp 98.7 F 10/25/24 06:00 Pulse 96 10/25/24 06:00 Resp 18 10/25/24 06:00 BP 144/84 10/25/24 06:00 Pulse Ox 98 10/25/24 06:00 O2 Del Method Room Air 10/25/24 06:00 Weight last 48 hrs Weight 117.537 kg Data NPU 10/22/24 16:53 10/22/24 16:53 A&P Assessment and plan 1. Bipolar disorder with depression: 2. Depression with suicidal ideation: 3. Chronic schizophrenia: 4. Suicide attempt: 5. Alcohol dependence, in remission: 6. Antisocial personality disorder: 7. Suicidal ideation: 8. Amphetamine abuse: Plan: This is a 53-year-old white male with a long history of multiple inpatient hospitalizations often with previous concerns for malingering which have been greatly reduced in recent years who presents today reporting that he has not been taking his medication and that he has had a increase in symptoms including thoughts of self-harm and homicidal thoughts with people being very annoying to him. 1. Continue current medication. 2. Continue to-15 minute checks, 3.? Encourage individual, group and milieu therapy. 4.? Encourage sober living treatment after discharge at the highest level of care to which he is willing to commit.? 5. Obtain collateral information. 6. Monitor against the backdrop of 96-hour hold. PDMP PDMP Reviewed: Not Reviewed Involuntary Hold Information 2 Hold Status: Legal Status: 96 Hour Hold Date/Time Hold Expires: 0 10/28/24@17:50 96 Hour Hold: 96 Hour Involuntary Admission: Yes Other Hold: Hold End Date: 01/02/24 Attestations NPU 2 Medical Necessity Statement*: Inpatient hospitalization is medically necessary and the clinically appropriate intervention?at this time.? We will monitor/initiate medications and make changes as indicated.? The patient?s likely length of stay 2-4 days. Coding Level of Care Code Acute Code for g Fwd Diagnoses Bipolar disorder with depression F31.9 Depression with suicidal ideation F32.A; R45.851 Chronic schizophrenia F20.9 Suicide attempt T14.91XA Alcohol dependence, in remission F10.21 Antisocial personality disorder F60.2 Suicidal ideation R45.851 Amphetamine abuse F15.10
[2024-10-25 13:59] VITALS: BP 124/88; PULSE 107; RESP 16; TEMP 36.6; O2SAT 98
[2024-10-25 20:33] VITALS: BP 150/96; PULSE 83; RESP 18; O2SAT 97
[2024-10-26 06:00] VITALS: BP 108/65; PULSE 69; RESP 16; TEMP 36.7; O2SAT 96
--- NOTE | 2024-10-26 06:07 | PC.NURSE ---
PATIENT HAS RESTED VERY WELL THIS NIGHT. NO COMPLAINTS VOICED.
--- NOTE | 2024-10-26 06:35 | P.NPUPN_ITS ---
Subjective NPU 2 Subjective: Patient presented today reporting that things are going all right. He continues to work with the social work team making calls to different programs. He reports that it has been very unsuccessful and we reported discussed him continuing to work on that and we will continue to support the process. He denied any side effects or problems with his medication. Mental Status Exam 2 MSE Comments: This is an obese white male in hospital scrubs with adequate grooming and eye contact.? No abnormal movements except for mild psychomotor retardation.?He was cooperative with exam in mild distress.? Speech was normal in rate and slightly decreased in volume.? Mood described as a little better, his affect was slightly subdued, but brighter. Thought process was linear. Thought content: Patient denying suicidal and homicidal ideation. There were no delusions reported or currently noted, he denied auditory hallucinations and denied visual hallucinations. Attention and concentration were adequate and memory was mostly reliable but none were formally tested.? He is alert and oriented x to person and place.? Insight was poor and judgment is impaired. Impulse control is poor. Vitals/I&O/Wt Last Vital Signs Temp 97.8 F 10/26/24 19:55 Pulse 86 10/26/24 19:55 Resp 18 10/26/24 19:55 BP 140/93 10/26/24 19:55 Pulse Ox 99 10/26/24 19:55 O2 Del Method Room Air 10/26/24 19:55 Physical Exam 2 Narrative: Const: COMMON NORMALS: no acute distress, average body habitus and patient oriented x3 HENMT: COMMON NORMALS: normocephalic HEAD & SCALP: normal to inspection and normocephalic FACE & SINUS: normal facial exam Eye: COMMON NORMALS: conjunctivae normal GENERAL EYE: appearance normal, both eyes and all related structures Neck/C-Spine: COMMON NORMALS: no JVD Chest: COMMONS NORMALS: normal inspection of the chest Resp: COMMON NORMALS: normal respiratory effort and clear to auscultation bilaterally AUSCULTATION: clear to auscultation bilaterally Cardio: COMMON NORMALS: no JVD, regular rate and regular rhythm RATE: regular rate RHYTHM: regular rhythm GI: COMMON NORMALS: Normal to inspection, nondistended, normoactive bowel sounds present Extremity: COMMON NORMALS: normal to inspection and full ROM Neuro: COMMON NORMALS: patient oriented x3 Psych: COMMON NORMALS: Normal thought process present and speech normal APPEARANCE: Yes grossly normal ATTITUDE: Yes calm ACTIVITY/MOTOR BEHAVIOR: Yes appropriate eye contact SPEECH: Yes normal speech MOOD & AFFECT: Yes depressed mood THOUGHT PROCESS: Normal thought process present OTHER: Patient states he has plan to take pills drink alcohol to kill himself says he has no reason to live says he cannot explain why he was in a ditch prior to admission . Data NPU 10/22/24 16:53 10/22/24 16:53 A&P Assessment and plan 1. Bipolar disorder with depression: 2. Depression with suicidal ideation: 3. Chronic schizophrenia: 4. Suicide attempt: 5. Alcohol dependence, in remission: 6. Antisocial personality disorder: 7. Suicidal ideation: 8. Amphetamine abuse: Plan: This is a 53-year-old white male with a long history of multiple inpatient hospitalizations often with previous concerns for malingering which have been greatly reduced in recent years who presents today reporting that he has not been taking his medication and that he has had a increase in symptoms including thoughts of self-harm and homicidal thoughts with people being very annoying to him. 1. Continue current medication. We will give his next injection of Abilify Maintena or Asimtufii prior to discharge. 2. Continue to-15 minute checks, 3.? Encourage individual, group and milieu therapy. 4.? Encourage sober living treatment after discharge at the highest level of care to which he is willing to commit.? 5. Obtain collateral information. 6. Monitor against the backdrop of 96-hour hold. PDMP PDMP Reviewed: Not Reviewed Involuntary Hold Information 2 Hold Status: Legal Status: 96 Hour Hold Date/Time Hold Expires: 0 10/28/24@17:50 96 Hour Hold: 96 Hour Involuntary Admission: Yes Other Hold: Hold End Date: 01/02/24 Attestations NPU 2 Medical Necessity Statement*: Inpatient hospitalization is medically necessary and the clinically appropriate intervention?at this time.? We will monitor/initiate medications and make changes as indicated.? The patient?s likely length of stay 2-4 days. Coding Level of Care Code Acute Code for g Fwd Diagnoses Bipolar disorder with depression F31.9 Depression with suicidal ideation F32.A; R45.851 Chronic schizophrenia F20.9 Suicide attempt T14.91XA Alcohol dependence, in remission F10.21 Antisocial personality disorder F60.2 Suicidal ideation R45.851 Amphetamine abuse F15.10
[2024-10-26 14:00] VITALS: BP 126/78; PULSE 86; RESP 18; TEMP 37.3; O2SAT 97
[2024-10-26 19:55] VITALS: BP 140/93; PULSE 86; RESP 18; TEMP 36.6; O2SAT 99
[2024-10-27 05:09] VITALS: BP 135/90; PULSE 80; RESP 18; TEMP 36.4; O2SAT 98
--- NOTE | 2024-10-27 05:16 | PC.NURSE ---
SLEEP PATIENT WENT TO BED AROUND 2100 AND SLEPT VERY WELL THIS NIGHT UNTIL 0445 WHEN HE WOKE UP WANTING COFFEE AND NICOTINE. PATIENT WAS REMINDED THAT NEITHER ARE AVAILABLE UNTIL 0600. PATIENT STATED HE WOULD JUST TAKE A CHOCOLATE MILK THEN .
--- NOTE | 2024-10-27 13:29 | P.NPUPN_ITS ---
Subjective NPU 2 Subjective: Patient presented today reporting that things are going okay. He has continued to participate in the process of finding sober living treatment options per staff reports and they have done their best to find options but they are further in the future. He is feeling optimistic about moving forward reporting that he feels better when he takes the Zyprexa Zydis once during the day. He he wanted to make sure that that as needed was available after discharge. We discussed the tentative plan for discharge tomorrow. Mental Status Exam 2 MSE Comments: This is an obese white male in hospital scrubs with adequate grooming and eye contact.? No abnormal movements except for mild psychomotor retardation.?He was cooperative with exam in mild distress.? Speech was normal in rate and volume.? Mood described as better, his affect was congruent and brighter. Thought process was linear. Thought content: Patient denying suicidal and homicidal ideation. There were no delusions reported or currently noted, he denied auditory hallucinations and denied visual hallucinations. Attention and concentration were adequate and memory was mostly reliable but none were formally tested.? He is alert and oriented x to person and place.? Insight and judgment were limited but improving. Impulse control is limited. Vitals/I&O/Wt Last Vital Signs Temp 97.6 F 10/27/24 05:09 Pulse 80 10/27/24 05:09 Resp 18 10/27/24 05:09 BP 135/90 10/27/24 05:09 Pulse Ox 98 10/27/24 05:09 O2 Del Method Room Air 10/26/24 19:55 10/26/24 10/27/24 10/27/24 22:59 06:59 14:59 Intake Total 720 / 720 Balance 720 / 720 Data NPU 10/22/24 16:53 10/22/24 16:53 A&P Assessment and plan 1. Bipolar disorder with depression: 2. Depression with suicidal ideation: 3. Chronic schizophrenia: 4. Suicide attempt: 5. Alcohol dependence, in remission: 6. Antisocial personality disorder: 7. Suicidal ideation: 8. Amphetamine abuse: Plan: This is a 53-year-old white male with a long history of multiple inpatient hospitalizations often with previous concerns for malingering which have been greatly reduced in recent years who presents today reporting that he has not been taking his medication and that he has had a increase in symptoms including thoughts of self-harm and homicidal thoughts with people being very annoying to him. 1. Continue current medication. We will give his next injection of Abilify Maintena or Asimtufii prior to discharge. 2. Continue to-15 minute checks. 3.? Encourage individual, group and milieu therapy. 4.? Encourage sober living treatment after discharge at the highest level of care to which he is willing to commit.? 5. Obtain collateral information. 6. Monitor against the backdrop of 96-hour hold. 7. Patient attempted to get placement and some facilities but likely the time a year, but whether and things of that nature have led to long waits. He has bed dates but at this point desires to discharge. Tentative plan for discharge tomorrow. PDMP PDMP Reviewed: Not Reviewed Involuntary Hold Information 2 Hold Status: Legal Status: 96 Hour Hold Date/Time Hold Expires: 0 10/28/24@17:50 96 Hour Hold: 96 Hour Involuntary Admission: Yes Other Hold: Hold End Date: 01/02/24 Attestations NPU 2 Medical Necessity Statement*: Inpatient hospitalization is medically necessary and the clinically appropriate intervention?at this time.? We will monitor/initiate medications and make changes as indicated.? The patient?s likely length of stay 1-3 days. Coding Level of Care Code Acute Code for [facility] Fwd Diagnoses Bipolar disorder with depression F31.9 Depression with suicidal ideation F32.A; R45.851 Chronic schizophrenia F20.9 Suicide attempt T14.91XA Alcohol dependence, in remission F10.21 Antisocial personality disorder F60.2 Suicidal ideation R45.851 Amphetamine abuse F15.10
[2024-10-27 14:00] VITALS: BP 105/59; PULSE 99; RESP 16; TEMP 36.4; O2SAT 99
[2024-10-27 19:32] VITALS: BP 127/70; PULSE 76; RESP 18; TEMP 36.5; O2SAT 99
[2024-10-28 05:38] VITALS: BP 143/80; PULSE 85; RESP 18; TEMP 36.5; O2SAT 99
[2024-10-28] MEDS: ARIPIPRAZOLE 400 MG 400 EACH IM (13:39)
[2024-10-28 13:51] VITALS: BP 153/98; PULSE 77; RESP 16; TEMP 36.4; O2SAT 100
[2024-10-28 14:19] VITALS: BP 153/98; PULSE 77; RESP 16; TEMP 36.4; O2SAT 100
== END 2024-10-28 14:30 | disposition home or self-care (01) | DRG 885 ==
LOC: ER 18:21 → NP 18:23
PROVIDERS: Admitting Provider Psychiatry & Neurology Psychiatry; Emergency Provider Emergency Medicine; Visit Provider Psychiatry & Neurology Psychiatry
DX: F31.9 Bipolar disorder, unspecified (principal); R45.851 Suicidal ideations; R45.850 Homicidal ideations; F20.9 Schizophrenia, unspecified; E66.9 Obesity, unspecified; Z68.35 Body mass index [BMI] 35.0-35.9, adult; F17.200 Nicotine dependence, unspecified, uncomplicated; F60.2 Antisocial personality disorder
CPT/HCPCS: 36415; 80053; 80306; 80307; 85025; 96372; 97150; 97165; 99285; J1630; J2060; J9999

== ENCOUNTER 2024-12-13 19:38 | Inpatient (IN) | payer OTHER, MEDICAID, SELFPAY ==
[2024-12-13 19:40] VITALS: BP 115/81; PULSE 92; RESP 18; TEMP 36.8; O2SAT 97; BMI 34.3
[2024-12-13 20:12] LABS: PCP Screen Urine Negative (Negative)
[2024-12-13 20:17] LABS: Hematocrit 44.6 % (37-53); Hemoglobin 15.60 g/dL (11.27-16.99); Mean Corpuscular HGB Conc 35.0 g/dL (30-55); Mean Corpuscular Hemoglobin 32.8 pg (27-33); Mean Corpuscular Volume 93.7 fl (82-101); Nucleated Red Blood Cells % 0 %; Platelet Count 229 10^3/cmm (157-399); Red Blood Count 4.76 10^6/uL (3.85-5.65); White Blood Count 9.87 10^3/uL (3.29-11.43)
--- NOTE | 2024-12-13 20:25 | ED.C_ITS ---
HPI - Psych 2 General: Chief Complaint: Psychiatric Symptoms Stated Complaint: SI HI Time Seen by Provider: 12/13/24 19:52 Source: patient Mode of arrival: ambulatory Limitations: no limitations History of Present Illness: Patient is a 54-year-old male who presents the emergency department complaining of suicidal ideation and homicidal ideation. He was here in the neuropsychiatric unit in October, states when he was discharged he did not cook pickled meat his medications and has felt recently like jumping in front of oncoming traffic to kill self. He also notes general HI stating that he feels like he could murder someone, no one in particular. States he thinks he needs seen in the neuropsychiatric unit again. Reports alcohol use today, no drug use is reported. MD complaint: suicidal ideation and other (Homicidal ideation) Duration: getting worse History of same: Yes Context: other (Never got medications from previous stay) Associated symptoms: Reports homicidal ideation and suicidal ideation; Deny auditory hallucinations or visual hallucinations If self harm: admits thoughts of self harm and has plan Details of plan: Jump in front of oncoming traffic Related Data Previous Rx's ?Medication ?Instructions ?Recorded aripiprazole 400 mg intramuscular 400 mg IM Q28D 28 da ys #1 ea 10/28/24 suspension,extended release (Abilify Maintena) olanzapine 5 mg disintegrating 5 mg PO DAILY PRN 10/28 tablet Agitation/Psychosis 30 days #30 tabs quetiapine 100 mg tablet (Seroquel) 100 mg PO BEDTIME sleep 30 days 10/28/24 #30 tabs Allergies Allergy/AdvReac Type Severity Reaction Status Date / Time Penicillins Allergy ALGY-Hives Verified 12/13/24 19:44 Review of Systems 2 General: Reports: 10 or more systems reviewed and unremarkable except in HPI and below Const: Denies: fever(s), chills or fatigue Eyes: Denies: change in vision ENMT: Denies: throat pain, ear or mastoid pain or nasal discharge Card: Denies: chest pain, palpitations, swelling of feet/ankles or lightheadedness Resp: Denies: dyspnea, productive cough or wheezing GI: Denies: abdominal pain, nausea, vomiting, diarrhea or constipation : Denies: flank pain, difficulty urinating, dysuria or urinary frequency Musc: Denies: neck pain, back pain or joint pain Skin/Breast: Denies: rash Neuro: Denies: headache(s), numbness in extremities or weakness in extremities Psych: Reports: suicidal ideation and homicidal ideation; Denies: difficulty concentrating, visual hallucinations, auditory hallucinations or tactile hallucinations PFSH ED 2 PFSH: Medical History Amphetamine abuse Bipolar disorder with depression Chronic alcohol abuse Alcohol dependence, in remission Bipolar 2 disorder Drug-induced psychotic disorder Malingering Antisocial personality disorder Social History Smoking and tobacco/nicotine status: current every day tobacco/nicotine user Physical Exam 2 Const: COMMON NORMALS: no acute distress, patient oriented x3 and no limitations GENERAL APPEARANCE: cooperative, comfortable and well developed ORIENTATION/CONSCIOUSNESS: Yes awake, Yes oriented to person, Yes oriented to place and Yes oriented to time HENMT: COMMON NORMALS: normocephalic, atraumatic and hearing grossly normal bilaterally HEAD & SCALP: normocephalic and atraumatic Eye: COMMON NORMALS: Equal, round and reactive pupils present, EOMs intact bilaterally and conjunctivae normal CONJUNCTIVA: Yes conjunctivae normal P UPIL: Yes Equal, round and reactive pupils present Neck/C-Spine: COMMON NORMALS: full ROM, supple and no JVD Resp: COMMON NORMALS: normal respiratory effort, No retractions, No use of accessory muscles and clear to auscultation bilaterally AUSCULTATION: clear to auscultation bilaterally Cardio: COMMON NORMALS: no JVD, regular rate, regular rhythm, No clicks present (Cardio), No murmurs present (Cardio) and No rub (Cardio) RATE: r egular rate RHYTHM: regular rhythm Extremity: COMMON NORMALS: full ROM and capillary refill normal Neuro: COMMON NORMALS: patient oriented x3, moves all extremities, no focal motor deficits and no sensory deficits noted SENSORIUM/ORIENTATION: Yes oriented to person, Yes oriented to place and Yes oriented to time Psych: COMMON NORMALS: mental status grossly normal and Normal thought process present THOUGHT PROCESS: Normal thought process present THOUGHT CONTENT: Y es Suicidality present, Yes Homicidality present and No Hallucination(s) present Skin: COMMON NORMALS: no rashes or lesions noted GENERAL SKIN EXAM: no rashes or lesions noted Course 2 Vital Signs: Vital signs: Vital Signs Temperature 98.3 F 12/13/24 19:40 Pulse Rate 92 12/13/24 19:40 Respiratory Rate 18 12/13/24 19:40 Blood Pressure 115/81 12/13/24 19:40 Pulse Oximetry 97 12/13/24 19:40 Oxygen Delivery Me thod Room Air 12/13/24 19:40 MDM - Psych Medical Decision Making Patient is cleared medically and will transfer to neuropsychiatric unit for further evaluation. Dr. Bond is excepting psychiatrist. Dr. Rice put in admit orders at this time. Lab Data 12/13/24 20:12 12/13/24 20:12 Laboratory Results WBC 9.87 10^3/uL (3.29-11.43) 12/13/24 20:12 RBC 4.76 10^6/uL (3.85-5.65) 12/13/24 20:12 Hgb 15.60 g/dL (11.27-16.99) 12/13/24 20:12 Hct 44.6 % (37-53) 12/13/24 20:12 MCV 93.7 fl (82-101) 12/13/24 20:12 MCH 32.8 pg (27-33) 12/13/24 20:12 MCHC 35.0 g/dL (30-55) 12/13/24 20:12 RDW 12.6 % (12.1-15.1) 12/13/24 20:12 Plt Count 229 10^3/cmm (157-399) 12/13/24 20:12 MPV 9.5 fL (7.4-10.4) 12/13/24 20:12 Neut % (Auto) 65.9 % 12/13/24 20:12 Lymph % (Auto) 21.3 % 12/13/24 20:12 [place] % (Auto) 9.3 % 12/13/24 20:12 Eos % (Auto) 2.0 % 12/13/24 20:12 Baso % (Auto) 0.9 % 12/13/24 20:12 Neut # (Auto) 6.50 10^3/uL (1.8-7.7) 12/13/24 20:12 Lymph # (Auto) 2.1 10^3/uL (0.8-4.8) 12/13/24 20:12 [place] # (Auto) 0.9 10^3/uL (0.2-0.9) 12/13/24 20:12 Eos # (Auto) 0.2 10^3/uL (0.0-0.8) 12/13/24 20:12 Baso # (Auto) 0.1 10^3/uL (0.0-0.1) 12/13/24 20:12 Nucleated RBC % (auto) 0 % 12/13/24 20:12 Nucleated RBCs # 0.0 /100WBC 12/13/24 20:12 Sodium 138 mmol/L (136-145) 12/13/24 20:12 Potassium 3.6 mmol/L (3.5-5.1) 12/13/24 20:12 Chloride 102 mmol/L (98-107) 12/13/24 20:12 Carbon Dioxide 22 mmol/L (22-29) 12/13/24 20:12 Anion Gap 17.6 (5-19) 12/13/24 20:12 BUN 11 mg/dL (6-20) 12/13/24 20:12 Creatinine 0.9 mg/dL (0.7-1.2) 12/13/24 20:12 GFR Calculation 87.6 mL/min (90-130) L 12/13/24 20:12 Glucose 90 mg/dL (65-115) 12/13/24 20:12 Calculated Osmolality 285 mOsm/kg (285-295) 12/13/24 20:12 Calcium 9.0 mg/dL (8.5-10.5) 12/13/24 20:12 Total Bilirubin 0.3 mg/dL (0.15-1.2) 12/13/24 20:12 AST 22 U/L (0-40) 12/13/24 20:12 ALT 27 U/L (0-41) 12/13/24 20:12 Alkaline Phosphatase 71 U/L (40-130) 12/13/24 20:12 Total Protein 7.0 g/dL (6.6-8.7) 12/13/24 20:12 Albumin 4.5 g/dL (3.5-5.2) 12/13/24 20:12 Globulin 2.5 g/dL (1.3-4.6) 12/13/24 20:12 Salicylates < 0.3 mg/dL (3-10) L 12/13/24 20:12 Urine Opiates Screen Negative ng/mL (Negative) 12/13/24 19:50 Acetaminophen < 5.0 ug/mL (10-30) L 12/13/24 20:12 Ur Barbiturates Screen Negative ng/mL (Negative) 12/13/24 19:50 Ur Phencyclidine Scrn Negative ng/mL (Negative) 12/13/24 19:50 Ur Amphetamines Screen Negative ng/mL (Negative) 12/13/24 19:50 U Benzodiazepines Scrn Negative ng/mL (Negative) 12/13/24 19:50 Urine Cocaine Screen Negative ng/mL (Negative) 12/13/24 19:50 U Marijuana (THC) Screen Positive ng/mL (Negative) H 12/13/24 19:50 Ethyl Alcohol < 10 mg/dL (0-10) 12/13/24 20:12 No radiology studies performed this visit Discharge Plan Discharge Patient Disposition: Admitted As Inpatient Clinical Impression: Suicidal ideation, Homicidal ideation Condition: Stable Coding Level of Care Code ED Diagnostic Radiologic Technologist for Wilder Long
[2024-12-13 20:35] LABS: Alanine Aminotransferase 27 U/L (0-41); Albumin Level 4.5 g/dL (3.5-5.2); Alkaline Phosphatase 71 U/L (40-130); Anion Gap 17.6 (5-19); Aspartate Amino Transferase 22 U/L (0-40); Blood Urea Nitrogen 11 mg/dL (6-20); Calcium 9.0 mg/dL (8.5-10.5); Carbon Dioxide 22 mmol/L (22-29); Chloride 102 mmol/L (98-107); Creatinine Clr Calc Pharmacy 121.2871; Globulin 2.5 g/dL (1.3-4.6); Glucose 90 mg/dL (65-115); Osmolality Calculated 285 mOsm/kg (285-295); Potassium 3.6 mmol/L (3.5-5.1); Sodium 138 mmol/L (136-145); Total Protein 7.0 g/dL (6.6-8.7)
[2024-12-13 20:37] LABS: Acetaminophen < 5.0 ug/mL (10-30); Alcohol Level < 10 mg/dL (0-10); Salicylate < 0.3 mg/dL (3-10)
[2024-12-13 22:20] VITALS: BP 128/79; PULSE 75; RESP 20; TEMP 36.4; O2SAT 99
[2024-12-14] VITALS: BP 105/68; PULSE 73; RESP 18; TEMP 36.6; O2SAT 95
[2024-12-14 06:33] VITALS: BP 128/88; PULSE 69; RESP 18; TEMP 36.6; O2SAT 98
[2024-12-14 07:36] VITALS: BP 153/100; PULSE 66; RESP 16; TEMP 36.6; O2SAT 100
--- NOTE | 2024-12-14 07:41 | P.NPUHP_ITS ---
Providers/Chief Complaint 2 Admitting Physician: Sam Bond MD Chief Complaint: SI HI HPI NPU History of Present Illness Emil Castro is a 54 year old male who presented to the ED with the following report: Chief Complaint: Psychiatric Symptoms Stated Complaint: SI HI Time Seen by Provider: 12/13/24 19:52 Source: patient Mode of arrival: ambulatory Limitations: no limitations History of Present Illness: Patient is a 54-year-old male who presents the emergency department complaining of suicidal ideation and homicidal ideation. He was here in the neuropsychiatric unit in October, when he was discharged he did not continuous pickling line pickler his medications and has felt recently like jumping in front of oncoming traffic to kill self. He also notes general HI stating that he feels like he could murder someone, no one in particular. States he thinks he needs seen in the neuropsychiatric unit again. Reports alcohol use today, no drug use is reported. MD complaint: suicidal ideation and other (Homicidal ideation) Duration: getting worse History of same: Yes Context: other (Never got medications from previous stay) Associated symptoms: Reports homicidal ideation and suicidal ideation; Deny auditory hallucinations or visual hallucinations If self harm: admits thoughts of self harm and has plan Details of plan: Jump in front of oncoming traffic He was admitted to the neuropsychiatric unit for definitive treatment of those issues. He is known to [facility] psychiatry through inpatient and outpatient services. He was just discharged on 10/28/2024 and was here 10/03/2024 before that and an excerpt of the 10/28/2024 discharge summary is included below for context and the fact that there have been no substantive changes. He presented with a UDS positive for Cannabis but otherwise unremarkable UDS and BAL. He once again presented reporting lethality regarding people that are frustrating him again and he identified that he had been keeping up with his shot of Abilify but not his other medications. We discussed the risks, benefits and alternatives of restarting his medications and he understood and agreed to proceed as is documented in this note. Per his 10/28/2024 [facility] inpatient psychiatric discharge summary: Discharge Diagnosis 1. Bipolar disorder with depression: 2. Depression with suicidal ideation: 3. Suicide attempt: 4. Alcohol dependence, in remission: 5. Antisocial personality disorder: 6. Amphetamine abuse: Reason for Visit Reason for Visit: SI Brief History: HPI NPU History of Present Illness Emil Castro is a 54 year old male who presented to the emergency department with the following report: Chief Complaint: Psychiatric Symptoms Stated Complaint: SI Time Seen by Provider: 10/22/24 16:11 Source: patient Mode of arrival: ambulatory Limitations: no limitations History of Present Illness: 54-year-old male is here with suicidal ideation he states over the last 3 days he has had thoughts of hanging himself citing worsening depression. He denies any worsening proving factors has had multiple admissions in the past. Associated symptoms: Reports depression and suicidal ideation He was admitted to the neuropsychiatric unit for definitive treatment of those issues. He is known to [facility] psychiatry through inpatient and outpatient services. He was just discharged on 10/03/2024 and an excerpt of that discharge summary is included below for context and the fact that there have been no substantive changes. He presents potentially homeless though he does have a camper reportedly. He has no air conditioning in a camper and is very limited if his ability to manage challenging situations and it is likely that the extreme weather is playing a role in his presentation as he reports suicidal and homicidal ideation that has built over the past few days. We discussed that he is a person that is at risk for acting on impulses given his known history. When he was here and September we did get the long-acting injectable of the Abilify. However he had not really taken the oral to augment getting into steady state. He denies any problems with the medication and endorses a need to get into a 30- day program. His last admission in September he was positive for amphetamines but this presentation his UDS was negative. We discussed working with the social work team on Friday to see what kind of resources might be at his disposal. Per his 10/03/2024 [facility] inpatient psychiatric discharge summary: Diagnoses at Discharge Discharge Diagnosis 1. Bipolar disorder with depression: 2. Depression with suicidal ideation: 3. Chronic schizophrenia: 4. Suicide attempt: 5. Alcohol dependence, in remission: 6. Antisocial personality disorder: 7. Suicidal ideation: 8. Amphetamine abuse: Reason for Visit Reason for Visit: SI Brief History: HPI NPU History of Present Illness Emil Castro is a 54 year old male who presented to the emergency department with the following report: Chief Complaint: Psychiatric Symptoms Stated Complaint: SI Time Seen by Provider: 09/27/24 16:57 History of Present Illness: 54-year-old male presents to the emergency room admitting to have been drinking today as well as having used methamphetamines. Having paranoid delusions. He is also having some homicidal and suicidal ideation he has a specific person he is wanting to kill. He is very angry at him but cannot voice to me why. He is also having suicidal thoughts with a plan with attending either to sit outside and of dehydration or walk out into traffic. He admits to having done methamphetamine about 8 to 10 hours ago. He has a history of alcohol use has had multiple previous admissions to our facility for this as well as being transferred once to his age. He is agreeable and redirectable has not had any aggressive behaviors here. He was admitted to the neuropsychiatric unit for definitive treatment of those issues. He is known to [facility] psychiatry through inpatient and outpatient services. His last inpatient stay was in December of last year. An excerpt from that discharge summary is included below for context and the fact that there have been limited substantive changes. He was on Abilify at that time but reports that he has not been taking it and would like to restart that medication. He had no real clear indication of why the medication was stopped but that he acknowledges him being unwell off of the medication. We discussed the risks, benefits and alternatives of restarting Abilify and he understood and agreed to proceed as is documented in this note. He identified having some significant homicidal thoughts and that he had been homeless again and having the struggles that come with that. Per his 01/05/2024 [facility] inpatient psychiatric discharge summary: Discharge Diagnosis (1) Bipolar disorder with depression: Status: Inactive (2) Depression with suicidal ideation: Status: Resolved (3) Chronic schizophrenia: Status: Acute (4) Suicide attempt: Status: Resolved (5) Alcohol dependence, in remission: Status: Acute (6) Antisocial personality disorder: Status: Inactive (7) Suicidal ideation: Status: Resolved (8) Amphetamine abuse: Status: Acute Reason for Visit Reason for Visit: SI Brief History: History of Present Illness Emil Castro is a 53 year old male who presented to the emergency department with the following report: Chief Complaint: Psychiatric Symptoms Stated Complaint: SI Time Seen by Provider: 12/27/23 14:39 History of Present Illness: 54-year-old man who presents to the emergency room with suicidal thoughts. He says he recently just [facility]. He says he had no place to go and he is no longer on his depression medications. He has a plan to either take pills or hang himself. He was admitted to the neuropsychiatric unit for definitive treatment of those issues. He is known to [facility] psychiatric services through mostly inpatient services but occasional outpatient services and has been in senior living recently for 50 some days. An excerpt of his last inpatient hospitalization discharge summary is included below for context and the fact that there have been no substantive changes. He presents today reporting that while in senior living his medications got off track. He reports they discharged him without a clear follow-up and without the resources to get his medications restarted as they were prior. He presented hoping that his medication could be restarted and he get back on track. We discussed the risks, benefits and alternatives of us initiating medication as we had during his last hospitalization and he understood and agreed to proceed as is documented in this note. Per his 09/02/2023 [facility] inpatient psychiatric discharge summary: Discharge Diagnosis (1) Bipolar disorder with depression: Status: Inactive (2) Depression with suicidal ideation: Status: Resolved (3) Chronic schizophrenia: Status: Acute (4) Suicide attempt: Status: Resolved (5) Alcohol dependence, in remission: Status: Acute (6) Antisocial personality disorder: Status: Inactive (7) Suicidal ideation: Status: Resolved (8) Amphetamine abuse: Status: Acute Reason for Visit Reason for Visit: HI, SI Brief History: History of Present Illness Emil Castro is a 53 year old male who presented to the emergency department with the following report: Chief Complaint: Psychiatric Symptoms Stated Complaint: HI, SI Time Seen by Provider: 08/30/23 17:10 Source: patient Mode of arrival: ambulatory Limitations: no limitations History of Present Illness: Patient is a 53-year-old male with extensive psychiatric history who presents to the emergency department complaining of suicidal ideations, homicidal ideations, and auditory hallucinations today. Patient recently was discharged from the NPU at the end of July, and states that other than receiving an injection he has not taken any medications. Initially he states he was doing okay though today was started to hear birds talk to him and had the overwhelming urge to shoot himself in the head. He also states that he has been having increased anger issues where he feels like he could shoot someone else in the head. He denies any illicit drug use other than smoking marijuana recently. He does have extensive past medical history of alcohol abuse. He denies drinking recently. When I ask him where he lives, he states that he has just been camping out lately. He does report a history of attempting suicide in the past, where he hung a rope over a tree and put his neck through it though did not go any further than this. He is not reporting any visual hallucinations or tactile hallucinations. No medical symptoms reported at this time. He requests to come into the psychiatric unit to be seen at this time. MD complaint: other (SI/HI/auditory hallucinations) Onset (ago): hour(s) Duration: constant History of same: Yes Relieving factors: none Exacerbating factors: none Associated symptoms: Reports auditory hallucinations, homicidal ideation and suicidal ideation; Deny visual hallucinations If self harm: admits thoughts of self harm and has plan. He was admitted to the neuropsychiatric unit for definitive treatment of those issues. He is known quite well through inpatient and some outpatient services. He has a long history of high utilization of services back when he was having more addiction issues and there were concerns often for malingering but in recent years his psychosis has become more prevalent and concern for malingering and antisocial personality disorder have greatly reduced. He was last seen in July 2023 and an excerpt of discharge summary is included below for context and that there have been limited substantive changes and he can be at times a poor historian. He presents reporting when he left he went back to his common behavior [place]. He said that things were going fairly well until the last couple of weeks when he was having auditory hallucinations feeling like birds were communicating with him and just feeling like the medication was not working. We discussed the fact that he had been on the Abilify Maintena which should have been renewed about 9 days ago. We discussed the risks, benefits and alternatives of resuming the long-acting injectable and specifically switching him to Abilify Asimtufii to give him an additional 30 days before medication issues might manifest. Otherwise he reports that he is looking forward to working with the social work team for any assistance they have for his psychosocial challenges. Hospital Course He slowly acclimated to the individual, group and milieu therapies provided. He presented with significant psychosocial difficulties including being homeless or at least having limited housing resources with a possible RV involved as well as continued difficulties with his addiction though his UDS as well as BAL were unremarkable. He has a significant history of addiction and had been struggling with access to his medication. He was struggling with depression, lethality and had been off his medications in part due to housing and other resources. We restarted his medication including Abilify Maintena. Abstinence from drugs of abuse while in the hospital, access to as needed medications and restarting home medications as well as being in the milieu led to a positive response. He was resistant to the idea of any intensive sober living treatment however, he worked with the treatment team for appropriate outpatient follow-up and was also connected to the [facility] and put on their wait list which they had should move fairly quickly. He had significant improvement during the hospitalization and and he was able to contract for safety outside of the hospital prior to discharge. During the hospitalization, patient had routine laboratory studies which were within normal limits except for few outliers. Additionally there was a general medical evaluation which was also within normal limits and revealed no new acute processes. Discharge Summary: At the time of discharge, psychosis and lethality were denied and psychosis was resolving/improving. Mood and anxiety were well managed. Patient endorsed a plan to follow-up with the aftercare recommendations of the treatment team. Patient was evaluated and deemed to be absent credible lethality, and had achieved the maximum benefit from an inpatient hospitalization, so was discharged. Meds NPU Home Medications ?Medication ?Instructions ?Recorded ?Confirmed ?Last Taken ?Type aripiprazole 400 mg intramuscular 400 mg IM Q28D 28 da ys #1 ea 10/28/24 12/14/24 Unknown Rx suspension,extended release (Abilify Maintena) olanzapine 5 mg disintegrating 5 mg PO DAILY PRN 10/2812/14/24 Unknown Rx tablet Agitation/Psychosis 30 days #30 tabs quetiapine 100 mg tablet (Seroquel) 100 mg PO BEDTIME sleep 30 days 10/28/24 12/14/24 Unknown Rx #30 tabs Allergies Allergy/AdvReac Type Severity Reaction Status Date / Time Penicillins Allergy ALGY-Hives Verified 12/13/24 19:44 PFSH NPU 2 PFSH: Medical History (Updated 12/13/24 @ 20:30 by ISABEL Sidhu) Amphetamine abuse Bipolar disorder with depression Chronic alcohol abuse Alcohol dependence, in remission Bipolar 2 disorder Drug-induced psychotic disorder Malingering Antisocial personality disorder Social History Smoking and tobacco/nicotine status: current every day tobacco/nicotine user Mental Status Exam 2 MSE Comments: This is an obese white male in hospital scrubs with adequate grooming and eye contact.? No abnormal movements except for mild psychomotor retardation.?He was cooperative with exam in mild to moderate distress.? Speech was normal in rate and slightly decreased in volume.? Mood described as having problems again, his affect was slightly subdued. Thought process was linear. Thought content: Patient endorsed fleeting suicidal and homicidal ideation. There were no delusions reported or but some paranoia and bizarre delusions noted, he endorsed auditory hallucinations and denied visual hallucinations. Attention and concentration were adequate and memory was mostly reliable but none were formally tested.? He is alert and oriented x 3 insight was poor and judgment is impaired. Impulse control is poor. Vitals/I&O/Wt Last Vital Signs Temp 98 F 12/14/24 07:36 Pulse 66 12/14/24 07:36 Resp 16 12/14/24 07:36 BP 153/100 12/14/24 07:36 Pulse Ox 100 12/14/24 07:36 O2 Del Method Room Air 12/14/24 07:36 Weight last 48 hrs Weight 114.759 kg Data NPU 12/13/24 20:12 12/13/24 20:12 A&P Assessment and plan 1. Bipolar disorder with depression: 2. Depression with suicidal ideation: 3. Chronic schizophrenia: 4. Suicide attempt: 5. Alcohol dependence, in remission: 6. Antisocial personality disorder: 7. Suicidal ideation: 8. Amphetamine abuse: Plan: This is a 53-year-old white male with a long history of multiple inpatient hospitalizations often with previous concerns for malingering which have been greatly reduced in recent years who presents today reporting that he has not been taking his oral medication, but that he has been consistent with his injection which has helped him avoid really struggling with his recovery and life. He once again reports having some conflict when he is not on his full regimen of medications and wanted to get those restarted. 1. Continue current medication. Restart home medication from last hospitalization. 2. Continue to-15 minute checks, 3.? Encourage individual, group and milieu therapy. 4.? Encourage sober living treatment after discharge at the highest level of care to which he is willing to commit.? 5. Obtain collateral information. 6. Monitor against the backdrop of 96-hour hold. PDMP PDMP Reviewed: Not Reviewed Involuntary Hold Information 2 96 Hour Hold: 96 Hour Involuntary Admission: Yes Other Hold: Hold End Date: 01/02/24 Attestations NPU 2 Medical Necessity Statement*: Inpatient hospitalization is medically necessary and the clinically appropriate intervention?at this time.? We will monitor/initiate medications and make changes as indicated.? He will be in the hospital for over 2 midnights. The patient?s likely length of stay 3-5 days. Coding Level of Care Code Acute Code for [facility] Fwd Diagnoses Bipolar disorder with depression F31.9 Depression with suicidal ideation F32.A; R45.851 Chronic schizophrenia F20.9 Suicide attempt T14.91XA Alcohol dependence, in remission F10.21 Antisocial personality disorder F60.2 Suicidal ideation R45.851 Amphetamine abuse F15.10
[2024-12-14] MEDS: multivitamin therapeutic Tablet 1 TAB PO (08:06)
--- NOTE | 2024-12-14 08:40 | PC.NURSE ---
Pt's BP 154/100 administered 2mg Ativan PO, pt laying down in bed, no issues noted.
[2024-12-14 12:00] VITALS: BP 111/63; PULSE 72; RESP 16; TEMP 36.7; O2SAT 98
--- NOTE | 2024-12-14 14:17 | PC.NURSE ---
Pt is having a new debit card issued and mailed to the hospital address.
[2024-12-14 16:00] VITALS: BP 130/92; PULSE 74; RESP 16; TEMP 36.9; O2SAT 100
[2024-12-14 20:00] VITALS: BP 117/78; PULSE 65; RESP 20; TEMP 36.9; O2SAT 97
[2024-12-15 06:42] VITALS: BP 113/76; PULSE 64; RESP 18; TEMP 36.8; O2SAT 98
[2024-12-15] MEDS: multivitamin therapeutic Tablet 1 TAB PO (08:15)
[2024-12-15 13:22] VITALS: BP 117/72; PULSE 69; RESP 16; TEMP 36.6; O2SAT 97
--- NOTE | 2024-12-15 17:20 | P.NPUDS_ITS ---
Diagnoses at Discharge Discharge Diagnosis 1. Bipolar disorder with depression: 2. Depression with suicidal ideation: 3. Suicide attempt: 4. Alcohol dependence, in remission: 5. Antisocial personality disorder: 6. Amphetamine abuse: Reason for Visit Reason for Visit: SI HI Involuntary Hold Information Hold Status: Date/Time Hold Expires: voluntary 96 Hour Hold: 96 Hour Involuntary Admission: Yes Other Hold: Hold End Date: 01/02/24 Discharge Data Studies Completed and Pending: Laboratory Results WBC 9.87 10^3/uL (3.2 9-11.43) 12/13/24 20:12 RBC 4.76 10^6/uL (3.8 5-5.65) 12/13/24 20:12 Hgb 15.60 g/dL (11.27 -16.99) 12/13/24 20:12 Hct 44.6 % (37-53) 12/13/24 20:12 MCV 93.7 fl (82-101) 12/13/24 20:12 MCH 32.8 pg (27-33) 12/13/24 20:12 MCHC 35.0 g/dL (30-55) 12/13/24 20:12 RDW 12.6 % (12.1-15.1 ) 12/13/24 20:12 Plt Count 229 10^3/cmm (157 -399) 12/13/24 20:12 MPV 9.5 fL (7.4-10.4) 12/13/24 20:12 Neut % (Auto) 65.9 % 12/13/24 20:12 Lymph % (Auto) 21.3 % 12/13/24 20:12 Lawrence % (Auto) 9.3 % 12/13/24 20:12 Eos % (Auto) 2.0 % 12/13/24 20:12 Baso % (Auto) 0.9 % 12/13/24 20:12 Neut # (Auto) 6.50 10^3/uL (1.8 -7.7) 12/13/24 20:12 Lymph # (Auto) 2.1 10^3/uL (0.8- 4.8) 12/13/24 20:12 Lawrence # (Auto) 0.9 10^3/uL (0.2- 0.9) 12/13/24 20:12 Eos # (Auto) 0.2 10^3/uL (0.0- 0.8) 12/13/24 20:12 Baso # (Auto) 0.1 10^3/uL (0.0- 0.1) 12/13/24 20:12 Nucleated RBC % (a uto) 0 % 12/13/24 20:12 Nucleated RBCs # 0.0 /100WBC 12/13/24 20:12 Sodium 138 mmol/L (136-1 45) 12/13/24 20:12 Potassium 3.6 mmol/L (3.5-5 .1) 12/13/24 20:12 Chloride 102 mmol/L (98-10 7) 12/13/24 20:12 Carbon Dioxide 22 mmol/L (22-29) 12/13/24 20:12 Anion Gap 17.6 (5-19) 12/13/24 20:12 BUN 11 mg/dL (6-20) 12/13/24 20:12 Creatinine 0.9 mg/dL (0.7-1. 2) 12/13/24 20:12 GFR Calculation 87.6 mL/min (90-1 30) L 12/13/24 20:12 Glucose 90 mg/dL (65-115) 12/13/24 20:12 Calculated Osmolal ity 285 mOsm/kg (285- 295) 12/13/24 20:12 Calcium 9.0 mg/dL (8.5-10 .5) 12/13/24 20:12 Total Bilirubin 0.3 mg/dL (0.15-1 .2) 12/13/24 20:12 AST 22 U/L (0-40) 12/13/24 20:12 ALT 27 U/L (0-41) 12/13/24 20:12 Alkaline Phosphata se 71 U/L (40-130) 12/13/24 20:12 Total Protein 7.0 g/dL (6.6-8.7 ) 12/13/24 20:12 Albumin 4.5 g/dL (3.5-5.2 ) 12/13/24 20:12 Globulin 2.5 g/dL (1.3-4.6 ) 12/13/24 20:12 Salicylates < 0.3 mg/dL (3-10 ) L 12/13/24 20:12 Urine Opiates Scre en Negative ng/mL (N egative) 12/13/24 19:50 Acetaminophen < 5.0 ug/mL (10-3 0) L 12/13/24 20:12 Ur Barbiturates Sc reen Negative ng/mL (N egative) 12/13/24 19:50 Ur Phencyclidine S crn Negative ng/mL (N egative) 12/13/24 19:50 Ur Amphetamines Sc reen Negative ng/mL (N egative) 12/13/24 19:50 U Benzodiazepines Scrn Negative ng/mL (N egative) 12/13/24 19:50 Urine Cocaine Scre en Negative ng/mL (N egative) 12/13/24 19:50 U Marijuana (THC) Screen Positive ng/mL (N egative) H 12/13/24 19:50 Ethyl Alcohol < 10 mg/dL (0-10) 12/13/24 20:12 Vitals: Last Vital Signs Temp 97.9 F 12/15/24 13:22 Pulse 69 12/15/24 13:22 Resp 16 12/15/24 13:22 BP 117/72 12/15/24 13:22 Pulse Ox 97 12/15/24 13:22 O2 Del Method Room Air 12/15/24 13:22 Discharge Plan Discharge Patient Disposition: Home Condition: Stable Prescriptions: No Action olanzapine 5 mg Tablet,Disintegrating 5 mg PO DAILY PRN (Reason: Agitation/Psychosis) 30 Days Qty: 30 1RF Abilify Maintena 400 mg suspension,extended rel recon 400 mg IM Q28D 28 Days Qty: 1 2RF Rx Instructions: Next injection due 11/25/2024 then as directed quetiapine [Seroquel] 100 mg tablet 100 mg PO BEDTIME 30 Days Qty: 30 1RF Referrals: Cheyenne Sanford, PMHNP [Staff Physician, Psychiatry] Patient Instructions: Opioid Safety, Patient Portal & Rita Instructions Discharge Attestations NPU Status at Discharge: Cognitive status at discharge: cognitively intact , Behavioral status at discharge: cooperative , Coding Level of Care Code Acute Code for [facility] Fwd Diagnoses Bipolar disorder with depression F31.9 Depression with suicidal ideation F32.A; R45.851 Chronic schizophrenia F20.9 Suicide attempt T14.91XA Alcohol dependence, in remission F10.21 Antisocial personality disorder F60.2 Suicidal ideation R45.851 Amphetamine abuse F15.10
--- NOTE | 2024-12-15 17:38 | P.NPUPN_ITS ---
Subjective NPU 2 Subjective: Patient presented today reporting that things are going okay. He is glad to be back on the medication. Working and being fine until the weather breaks and then run again to all kinds of problems subsequently needing to be hospitalized to manage those things when based on this but some of this is predictable. He was open to working with the social work team while some of those psychosocial issue as we get his medication reestablished and stabilized. He denied any side effects with medication. Mental Status Exam 2 MSE Comments: This is an obese white male in hospital scrubs with adequate grooming and eye contact.? No abnormal movements except for mild psychomotor retardation.?He was cooperative with exam in mild to moderate distress.? Speech was normal in rate and slightly decreased in volume.? Mood described as having problems again, his affect was slightly subdued. Thought process was linear. Thought content: Patient endorsed fleeting suicidal and homicidal ideation. There were no delusions reported or but some paranoia and bizarre delusions noted, he endorsed auditory hallucinations and denied visual hallucinations. Attention and concentration were adequate and memory was mostly reliable but none were formally tested.? He is alert and oriented x 3 insight was poor and judgment is impaired. Impulse control is poor. Vitals/I&O/Wt Last Vital Signs Temp 97.9 F 12/15/24 13:22 Pulse 69 12/15/24 13:22 Resp 16 12/15/24 13:22 BP 117/72 12/15/24 13:22 Pulse Ox 97 12/15/24 13:22 O2 Del Method Room Air 12/15/24 13:22 Weight last 48 hrs Weight 114.759 kg Data NPU 12/13/24 20:12 12/13/24 20:12 A&P Assessment and plan 1. Bipolar disorder with depression: 2. Depression with suicidal ideation: 3. Chronic schizophrenia: 4. Suicide attempt: 5. Alcohol dependence, in remission: 6. Antisocial personality disorder: 7. Suicidal ideation: 8. Amphetamine abuse: Plan: This is a 53-year-old white male with a long history of multiple inpatient hospitalizations often with previous concerns for malingering which have been greatly reduced in recent years who presents today reporting that he has not been taking his oral medication, but that he has been consistent with his injection which has helped him avoid really struggling with his recovery and life. He once again reports having some conflict when he is not on his full regimen of medications and wanted to get those restarted. 1. Continue current medication. Restart home medication from last hospitalization. Identified when his injection is due. 2. Continue to-15 minute checks, 3.? Encourage individual, group and milieu therapy. 4.? Encourage sober living treatment after discharge at the highest level of care to which he is willing to commit.? 5. Obtain collateral information. 6. Monitor against the backdrop of 96-hour hold. PDMP PDMP Reviewed: Not Reviewed Involuntary Hold Information 2 Hold Status: Date/Time Hold Expires: voluntary 96 Hour Hold: 96 Hour Involuntary Admission: Yes Other Hold: Hold End Date: 01/02/24 Attestations NPU 2 Medical Necessity Statement*: Inpatient hospitalization is medically necessary and the clinically appropriate intervention?at this time.? We will monitor/initiate medications and make changes as indicated.? The patient?s likely length of stay 2-4 days. Coding Level of Care Code Acute Code for [facility] Fwd Diagnoses Bipolar disorder with depression F31.9 Depression with suicidal ideation F32.A; R45.851 Chronic schizophrenia F20.9 Suicide attempt T14.91XA Alcohol dependence, in remission F10.21 Antisocial personality disorder F60.2 Suicidal ideation R45.851 Amphetamine abuse F15.10
[2024-12-15 22:00] VITALS: BP 139/84; PULSE 77; RESP 17; TEMP 36.6; O2SAT 99
[2024-12-16 06:00] VITALS: BP 126/69; PULSE 60; RESP 17; TEMP 36.6; O2SAT 97
--- NOTE | 2024-12-16 07:49 | P.NPUPN_ITS ---
Subjective NPU 2 Subjective: Patient presented today reporting that he is feeling a bit better. He reported that he feels that he may be ready to go home soon. We discussed making sure we can identify when his injection is due for make sure he is not due now or in a position or we can give it a little early within guidelines so that we do not have any lapses. He was agreeable to that and denied any side effects to medication. Mental Status Exam 2 MSE Comments: This is an obese white male in hospital scrubs with adequate grooming and eye contact.? No abnormal movements except for mild psychomotor retardation.?He was cooperative with exam in mild to moderate distress.? Speech was normal in rate and slightly decreased in volume.? Mood described as having problems again, his affect was slightly subdued. Thought process was linear. Thought content: Patient endorsed fleeting suicidal and homicidal ideation. There were no delusions reported or but some paranoia and bizarre delusions noted, he endorsed auditory hallucinations and denied visual hallucinations. Attention and concentration were adequate and memory was mostly reliable but none were formally tested.? He is alert and oriented x 3 insight was poor and judgment is impaired. Impulse control is poor. Vitals/I&O/Wt Last Vital Signs Temp 97.8 F 12/16/24 06:00 Pulse 60 12/16/24 06:00 Resp 17 12/16/24 06:00 BP 126/69 12/16/24 06:00 Pulse Ox 97 12/16/24 06:00 O2 Del Method Room Air 12/16/24 06:00 Data NPU 12/13/24 20:12 12/13/24 20:12 A&P Assessment and plan 1. Bipolar disorder with depression: 2. Depression with suicidal ideation: 3. Chronic schizophrenia: 4. Suicide attempt: 5. Alcohol dependence, in remission: 6. Antisocial personality disorder: 7. Suicidal ideation: 8. Amphetamine abuse: Plan: This is a 53-year-old white male with a long history of multiple inpatient hospitalizations often with previous concerns for malingering which have been greatly reduced in recent years who presents today reporting that he has not been taking his oral medication, but that he has been consistent with his injection which has helped him avoid really struggling with his recovery and life. He once again reports having some conflict when he is not on his full regimen of medications and wanted to get those restarted. 1. Continue current medication. Restart home medication from last hospitalization. Identified when his injection is due. 2. Continue to-15 minute checks, 3.? Encourage individual, group and milieu therapy. 4.? Encourage sober living treatment after discharge at the highest level of care to which he is willing to commit.? 5. Obtain collateral information. 6. Monitor against the backdrop of 96-hour hold. PDMP PDMP Reviewed: Not Reviewed Involuntary Hold Information 2 Hold Status: Date/Time Hold Expires: voluntary 96 Hour Hold: 96 Hour Involuntary Admission: Yes Other Hold: Hold End Date: 01/02/24 Attestations NPU 2 Medical Necessity Statement*: Inpatient hospitalization is medically necessary and the clinically appropriate intervention?at this time.? We will monitor/initiate medications and make changes as indicated.? The patient?s likely length of stay 1-3 days. Coding Level of Care Code Acute Code for g Fwd Diagnoses Bipolar disorder with depression F31.9 Depression with suicidal ideation F32.A; R45.851 Chronic schizophrenia F20.9 Suicide attempt T14.91XA Alcohol dependence, in remission F10.21 Antisocial personality disorder F60.2 Suicidal ideation R45.851 Amphetamine abuse F15.10
[2024-12-16] MEDS: multivitamin therapeutic Tablet 1 TAB PO (08:39)
[2024-12-16] MEDS: FLU VACC TS2025-26(6MOS UP)/PF 45 MCG/0.5 ML SYRINGE IM (09:53)
[2024-12-16 14:00] VITALS: BP 129/84; PULSE 84; RESP 20; TEMP 36.5; O2SAT 99
[2024-12-16 20:38] VITALS: BP 150/97; PULSE 77; RESP 18; TEMP 36.8; O2SAT 100
[2024-12-17 06:00] VITALS: BP 112/65; PULSE 72; RESP 18; TEMP 36.6; O2SAT 98
[2024-12-17] MEDS: multivitamin therapeutic Tablet 1 TAB PO (07:45)
--- NOTE | 2024-12-17 10:34 | DCPLANNER ---
IMM was competed with pt on 12/17/2024 @ 1028. Pt was given a copy of rights and he stated he understood his rights.
[2024-12-17] MEDS: ARIPiprazole Maintena 400 MG IM (11:06)
[2024-12-17 11:28] VITALS: BP 112/65; PULSE 72; RESP 18; TEMP 36.6; O2SAT 98
[2024-12-17 14:00] VITALS: BP 132/85; PULSE 89; RESP 18; TEMP 36.6; O2SAT 98
== END 2024-12-17 15:32 | disposition home or self-care (01) | DRG 885 ==
LOC: ER 21:29 → NP 21:45
PROVIDERS: Admitting Provider Psychiatry & Neurology Psychiatry; Emergency Provider Physician Assistant; Visit Provider Psychiatry & Neurology Psychiatry
DX: F31.81 Bipolar II disorder (principal); R45.851 Suicidal ideations; Z59.00 Homelessness unspecified; F20.9 Schizophrenia, unspecified; R45.850 Homicidal ideations; F17.200 Nicotine dependence, unspecified, uncomplicated; E66.9 Obesity, unspecified; Z68.34 Body mass index [BMI] 34.0-34.9, adult; Z88.0 Allergy status to penicillin; F15.11 Other stimulant abuse, in remission; F10.20 Alcohol dependence, uncomplicated
CPT/HCPCS: 36415; 80053; 80306; 80307; 85025; 90471; 90656; 96372; 97150; 97165; 99285; J9999